=== PATIENT | female | born 1950 | race Caucasian/White ===

== ENCOUNTER 2021-01-25 17:05 | Emergency (ER) | payer OTHER ==
[2021-01-25] MEDS ORDERED: DIPHENHYDRAMINE 50 MG/ML VIAL ONE (17:48)
[2021-01-25] MEDS ORDERED: METHYLPREDNISOLONE 125 MG INJ ONE (17:48)
[2021-01-25] MEDS ORDERED: NA CHLORIDE 0.9% 50 ML ONE (17:49)
[2021-01-25 18:25] LABS: Absolute Lymphocytes (CBC) 1.8 K/uL (0.7-4.9); Basophils % 1.4 % (0-1.3); Lymphocytes % 32.6 % (15.3-44.8); MPV 9.4 fL (7.6-11.3); RBC Red Blood Cell Count 4.06 M/uL (3.86-4.86)
[2021-01-25 18:26] LABS: Protime INR 1.01
[2021-01-25 18:40] LABS: Albumin 3.8 g/dL (3.4-5.0); Bilirubin Direct 0.2 mg/dL (0-0.2); Bilirubin Total 0.9 mg/dL (0.2-1.0); Potassium 3.6 mmol/L (3.5-5.1); Protein, Total 7.7 g/dL (6.4-8.2)
--- NOTE | 2021-01-25 18:57 | RAD REPORT ---
EXAM DESCRIPTION: CTChest Abdomen Pelvis W Cont - 01/25/2021 6:45 pm CLINICAL HISTORY: pain, trauma COMPARISON: No comparisons TECHNIQUE: CT of the chest, abdomen, and pelvis was performed with IV contrast. All CT scans are performed using dose optimization technique as appropriate and may include automated exposure control or mA/KV adjustment according to patient size. FINDINGS: Thorax: Chest Wall: No abnormal mass Lungs: No acute abnormality. Pleura: No effusions or pneumothorax. Elana/Mediastinum: No lymphadenopathy. Small hiatal hernia Aorta/Pulmonary Arteries: Unremarkable Heart: Normal size. Coronary calcifications . Abdomen/Pelvis: Liver: Hepatic steatosis. Biliary: Cholecystectomy. Stomach: No significant focal abnormality. Duodenum: No significant focal abnormality. Pancreas: No significant abnormality. Spleen: No significant abnormality. Adrenal: No suspicious lesions. Kidney/ureter: No hydronephrosis. No renal calculi. Retroperitoneum: No retroperitoneal adenopathy. Vascular: No aneurysm. Bowel: No significant focal abnormality. Diverticulosis without diverticulitis. Partial colectomy. Peritoneum: No ascites or free air. Several small fat containing ventral hernias. Bladder: Grossly unremarkable. Reproductive: Hysterectomy Bones: No acute fracture. Other: Subcutaneous edema and skin thickening at the patient's pannus. No fluid collections are ident ified. No gas. IMPRESSION: Soft tissue thickening and subcutaneous edema at the patient's pannus but no fluid colle ctions or subcutaneous gas identified. No inciting etiology is seen.
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
[2021-01-25 19:47] VITALS: TEMP 97.6
[2021-01-25 19:48] VITALS: BP 164/76; O2SAT 100
--- OUTSIDE RECORDS SUMMARY | 2021-02-02 13:26 | XMS REPORT | Continuity of Care Document ---
:1950 Author Organization [facility] t Address [address] [place] [address] Care Team Providers Name Role Phone Pcp, Patient Does Not Have A Primary Care Physician [phone] AIMEE MOTA Attending Clinician Unavailable MISHA Attending Clinician Unavailable Aimee Mota MD Attending Clinician Damon QUINTERO Attending Clinician Unavailable Zechariah WHITEHEAD Attending Clinician Doctor Unassigned, Name Attending Clinician Unavailable UNKNOWN Attending Clinician Unavailable Only, Bls Test Attending Clinician Unavailable Unknown Attending Clinician Unavailable Jessi QUINTERO, T Attending Clinician Unavailable Elinor SORIANO Attending Clinician Unavailable Micky RUBIO Attending Clinician Unavailable Fadi Attending Clinician Unavailable AIMEE MOTA Admitting Clinician Unavailable Aimee Mota MD Admitting Clinician Physician, Primary or Family Admitting Clinician Unavailabl e Payers Payer Name Policy Type Policy Number Effective Date Expiration Date S ource MEDICARE PART A \\T\\ [id number] 2016 B 00:00:00 COMMERCIAL [id number] 2016 NON-CONTRACT 00:00:00 [employer] [place] [id number] 2016 00:00:00 Problems Condition Condition Condition Status Onset Resolution Last Treating Co mments Source Name Details Category Date Date Treatment Clinician Date Carotid Carotid Disease Active 2021-1 Overview: Univ ers artery artery 0-13 Formattin ity of stenosis, stenosis, 00:00: g of this [place] symptomati symptomati 00 note Me dical c, right c, right might be Bran ch different from the original. Added automatic ally from request for surgery [id number] CAD CAD Disease Active Univers (coronary (coronary 11-30 ity of artery artery 00:00: [place] disease) disease) 00 Medica l Branch Dyslipidem Dyslipidem Disease Active U nivers ia ia 11-30 ity of 00:00: [place] 00 Medical Branch Hypertensi Hypertensi Disease Active U nivers on on 11-30 ity of 00:00: [place] [facility] Stroke of Stroke of Disease Active Uni vers unknown unknown 11-21 ity of etiology etiology 00:00: [place] 00 Medical Branch R19.7 - Diagnosis Active 2020-07-20 Me moria DIARRHEA, 07-16 04:32:00 l UNSPECIFIE R19.7 - 00:01: Her josé D DIARRHEA, 00 UNSPECIFIE D Active 07/16/2020 [facility] 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 04/18/2020 OPID [facility] LOWER Diagnosis Active 2019-032020-02-28 Mem oria ABDOMINAL 04-20 14:37:00 l PAIN LOWER 00:00: Ben ABDOMINAL 00 PAIN Active 02/19/2020 [facility] [id number], Diagnosis Active 2019-09-02 Mem oria K63.89, - 14:55:00 l MESENTERIC 07410, 00:00: Herm kendra MASS K63.89, 00 MESENTERIC MASS Active 08/10/2019 [facility] ABD PAIN Diagnosis Active 2019-08-11 M emoria 07-14 18:18:00 l ABD PAIN 07:30: Bryant n 00 Active 07/15/2019 [facility] STOMACH Diagnosis Active 2019-08-11 Me moria PAIN 07-11 18:18:00 l STOMACH 00:00: Ben PAIN 00 Active 07/12/2019 [facility] G45.8 - Diagnosis Active 2019-05-05 Me moria OTH 8-06 18:59:00 l TRANSIENT G45.8 - 00:01: Herm kendra CEREBRAL OTH 00 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/2018 [facility] 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 12-11 st use of use of 00:00: Hospita anticoagul anticoagul 00 l ant ant Calcaneal Calcaneal Disease Active Met sabrinai spur spur 12-11 00:00: Hospita 00 l BOWEL Diagnosis Active 2013-10-20 Mem oria OBSTRUCTIO - 22:06:00 l N BOWEL 00:00: [place] OBSTRUCTIO 00 N Active 10/13/2013 [facility] Problem Resolve 2020-10-08 Me moria section d 00:35:02 l (procedure He rmann ) section (procedure ) Resolved Problem 10/08/2020 Medical Group,[facility] Neuro,[facility],2.1 [id number],[facility] Laparoscop Problem Resolve 2020-10-08 Memoria ic d 00:35:02 l cholecyste [place] n ctomy Laparoscop (procedure ic ) cholecyste ctomy (procedure ) Resolved Problem 10/08/2020 Medical [facility],2.1 [id number],[facility] Gastric Problem Resolve 2020-10-08 Mem oria polyp d 00:35:02 l (disorder) Gastric Her josé polyp (disorder) Resolved Problem 10/08/2020 [facility] Neuro,[facility],2.1 [id number],[facility] Stent, Problem Resolve 2020-10-08 Abraham joana device d 00:35:02 l (physical Stent, Tamela nn object) device (physical object) Resolved Problem 10/08/2020 Medical Group,[facility] her Neuro,[facility],2.1 [id number],[facility] Abdominal Problem Active 2020-10-08 Me moria mass 00:35:02 l (finding) [place] Abdominal mass (finding) Active Problem 10/08/2020 Medical Group,[id number],[facility] Carpal Problem Active 2020-10-08 Memor ia tunnel 00:35:02 l syndrome Carpal [place] n (disorder) tunnel syndrome (disorder) Active Problem 10/08/2020 Medical [facility] her Neuro,[id number],[facility] Gastroesop Problem Active 2020-10-08 M emoria hageal 00:35:02 l reflux [place] disease Gastroesop (disorder) hageal reflux disease (disorder) Active Problem 10/08/2020 Medical [facility],[id number],[facility] History of Problem Active 2020-10-08 M emoria - CVA 00:35:02 l (context-d History Her josé ependent of - CVA category) (context-d ependent category) Active Problem 10/08/2020 Medical [facility] her Neuro,[id number],[facility] Hyperchole Problem Active 2020-10-08 M emoria sterolemia 00:35:02 l (disorder) [place] n Hyperchole sterolemia (disorder) Active Problem 10/08/2020 Medical [facility] her Neuro,[facility],2.1 [id number],[facility] Simple Problem Active 2020-10-08 Memor ia obesity 00:35:02 l (disorder) Simple Herm kendra obesity (disorder) Active Problem 10/08/2020 Medical Group,[facility] her Neuro,[id number],[facility] Transient Problem Active 2020-10-08 Me moria ischemic 00:35:02 l attack Ben (disorder) Transient ischemic attack (disorder) Active Problem 10/08/2020 Medical [facility] her Neuro,[id number],[facility] ILLNESS, Diagnosis Active 2019-09-02 M emoria UNSPECIFIE 14:55:00 l D ILLNESS, [place] n UNSPECIFIE D Active [facility] INTESTINAL Diagnosis Active 2013-10-20 Memoria OBSTRUCT 22:06:00 l NOS Ben INTESTINAL OBSTRUCT NOS Active [facility] History of Past Illness Condition Condition Condition Status Onset Resolution Last Treating Co mments Source Name Details Category Date Date Treatment Clinician Date Diverticul Problem 2019-032020-02-21 2020-02-21 Memoria itis of 04-20 22:32:06 22:32:06 l large 18:00: [place] intestine Diverticul 00 without itis of perforatio large n or intestine abscess without without perforatio bleeding n or abscess without bleeding 0 02/21/2020 [facility] Epigastric Problem 2019-07-18 2019-07-18 Memoria pain 07-15 21:14:24 21:14:24 l 17:00: [place] Epigastric 00 pain 07/16/2019 07/18/2019 [facility] Unspecifie Problem 2019-07-14 2019-07-14 Memoria d 07-11 22:18:25 22:18:25 l abdominal 17:00: [place] pain Unspecifie 00 d abdominal pain 07/12/2019 07/14/2019 [facility] Ventral Problem 2019-07-14 2019-07-14 Memoria hernia 07-11 22:18:25 22:18:25 l without Ventral 17:00: [place] n obstructio hernia 00 n or without gangrene obstructio n or gangrene 0 07/14/2019 [facility] Allergies, Adverse Reactions, Alerts Allergy Allergy Status Severity Reaction(s) Onset Inactive Treating Comm ents Source Name Type Date Date Clinician No Known DA Active [facility] Allergie 11-20 Clear s 00:00: King 00 [facility] No Known DA Active U [facility] Allergie 11-20 Clear s 00:00: [place] 00 [facility] NO KNOWN Drug Active Univers ALLERGIE Class ity of S [facility] Family History Family Member Diagnosis Comments Start Date Stop Date Source Natural father Heart disease [facility] Natural father Hypertension [facility] Natural mother Hypertension [facility] Social History Social Habit Start Date Stop Date Quantity Comments Source Exposure to Not sure [facility] SARS-CoV-2 [facility] (event) [place] Tobacco use and 2020-11-21 2020-11-21 Never used Universit y of exposure 00:00:00 00:00:00 [facility] Social History 2019-09-02 2019-09-02 [facility] 02:44:10 02:44:10 Alcohol intake 2018-04-02 2018-04-02 [facility] 00:00:00 00:00:00 non-drinker of alcohol (finding) Sex [birth year] Universit y of 00:00:00 00:00:00 [facility] Smoking Status Start Date Stop Date Source Unknown if ever smoked [facility] Never smoker [facility] Medications Ordered Filled Start Stop Current Ordering Indication Dosage Frequency Signature Comments Components Source Medication Medication Date Date Medication? Clinician (SIG) Name Name clopidogreL 2020-03 Yes 75mg Take 75 mg Univers (PLAVIX) 75 -12 by mouth ity of mg tablet 13:48: daily. [address] losartan 50 2020-03 Yes 50mg Take 50 mg Univers mg tablet 1-12 by mouth ity of 13:48: daily. [address] metoprolol 2020-03 Yes 25mg Take 25 mg U nivers succinate 1-12 by mouth ity of XL 25 mg 24 13:48: [facility]. [facility] [address] pantoprazol 2020-03 Yes 40mg Take 40 mg Univers e 20 mg EC -12 by mouth ity o f tablet 13:48: daily. [address] aspirin 81 2020-03 Yes 81mg Take 81 mg U nivers mg chewable 1-12 by mouth ity of tablet 13:48: daily. [place] 54 Medical Branch ferrous 2020-03 Yes 65mg Take 65 mg Univ ers sulfate 1-12 by mouth ity of (FERROUSUL) 13:48: [place]. [place] 325 [place] (65 54 Medical mg iron) Branch tablet octreotide, 2020-03 Yes 30mg 30 mg by Un aureliano microsphere 1-12 Intramuscu it y of s 30 mg 13:48: lar route [place] injection 54 once every Medi gerhard month. Branch metoprolol 2020-03- Yes [id number] 25mg Take 1 Univers succinate 0-15 - 9100 tablet by ity of XL 25 mg 24 00:00: 04:59 [place] hr tablet 00 :00 daily for Medic al 360 days. Branch metoprolol 2020-03- Yes [id number] 25mg Take 1 Univers succinate 0-15 - 9100 tablet by ity of XL 25 mg 24 00:00: 04:59 mouth [place] hr tablet 00 :00 daily for Medic al 360 days. Branch losartan 2020-03 Yes 50mg 50 mg, Univers (COZAAR) 0-13 Oral, ity of tablet 50 16:45: DAILY, [place] mg 00 First dose Medical on Thu [place] 01/02/21 at 1145, Until Discontinu ed, Routine, PACU amLODIPine 2020-03 Yes 10mg 10 mg, Unive rs (NORVASC) 0-13 Oral, ity of tablet 10 16:45: DAILY, [place] mg 00 First dose Medical on Thu [place] 01/02/21 at 1145, Until Discontinu ed, Routine, PACU lactated 2020-03 Yes 1000mL at 75 Univer s ringers IV 0-13 mL/hr, ity of infusion 16:45: 1,000 mL, [place] 1,000 mL 00 IV Medical Infusion, Branch CONTINUOUS , Starting on Thu01/02/21 at 1145, Until Discontinu ed, Routine, PACU losartan 2020-03- No 50mg 50 mg, Univer s (COZAAR) 0-13 10-13 Oral, ity of tablet 50 16:45: 19:32 DAILY, [place] mg 00 :01 First dose Medical on Thu [place] 01/02/21 at 1145, Until Discontinu ed, Routine, PACU amLODIPine 2020-03- No 10mg 10 mg, Univ ers (NORVASC) 0-13 10-13 Oral, ity of tablet 10 16:45: 19:32 DAILY, [place] mg 00 :01 First dose Medical on Thu Branch 01/02/21 at 1145, Until Discontinu ed, Routine, PACU lactated 2020-03- No 1000mL at 75 Unive rs ringers IV 0-13 10-13 mL/hr, ity of infusion 16:45: 19:32 1,000 mL, [place] as 1,000 mL 00 :01 IV Medical Infusion, Branch CONTINUOUS , Starting on Thu01/02/21 at 1145, Until Thu01/02/21 at 1432, Routine, PACU labetaloL 2020-03- No Slow IV Univ ers (NORMODYNE) 0-13 10-13 Push, ONCE i ty of injection 16:15: 16:45 INTRA [place] 00 :17 PROCEDURE, Medical Starting Branch on Thu01/02/21 at 1115, Until Thu01/02/21 at 1145, Routine, Intra-op midazolam 2020-03- No IV Push, Uni vers (VERSED) 0- 10-13 ONCE INTRA ity of injection 16:13: 16:45 PROCEDURE, [place] 00 :17 Starting Medical on Thu Branch 01/02/21 at 1113, Until Thu01/02/21 at 1145, Routine, Intra-op esmoloL 2020-03- No Slow IV Univer s (BREVIBLOC) 0-13 10-13 Push, ONCE i ty of injection 16:13: 16:45 INTRA [place] 00 :17 PROCEDURE, Medical Starting Branch on Thu01/02/21 at 1113, Until Thu01/02/21 at 1145, Routine, Intra-op lactated 2020-03- No IV Univers ringers IV 0-13 10-13 Infusion, ity of infusion 16:11: 16:45 CONTINUOUS [place] 00 :17 PRN, Medical Starting Branch on Thu01/02/21 at 1111, Until Thu01/02/21 at 1145, Routine, Intra-op heparin 2020-03 Yes PRN, Univers 1,000 0-13 Starting ity of unit/mL 14:05: on Thu [place] 5,000 Units 00 01/02/21 Medi gerhard in NaCl at 0905, Branch 0.9% (NS) Intra-op 500 mL OR irrigation heparin 2020-03 PRN, Univers 1,000 0-13 10 Starting ity of unit/mL 14:05: 19:32 on Thu [place] 5,000 Units 00 :01 01/02/21 Medi gerhard in NaCl at 0905, Branch 0.9% (NS) Intra-op 500 mL OR irrigation clopidogreL 2020-03 Yes 75mg Take 75 mg Univers (PLAVIX) 75 0-13 by mouth ity of mg tablet 12:26: daily. [address] losartan 50 2020-03 Yes 50mg Take 50 mg Univers mg tablet 0-13 by mouth ity of 12:26: daily. [address] metoprolol 2020-03 Yes 25mg Take 25 mg U nivers succinate 0-13 by mouth ity of XL 25 mg 24 12:26: daily. [place] hr tablet [address] [place] [address] pantoprazol 2020-03 Yes 40mg Take 40 mg Univers e 20 mg EC 0-13 by mouth ity o f tablet 12:26: daily. [address] aspirin 81 2020-03 Yes 81mg Take 81 mg U nivers mg chewable 0-13 by mouth ity of tablet 12:26: daily. [address] ferrous 2020-03 Yes 65mg Take 65 mg Univ ers sulfate 0-13 by mouth ity of (FERROUSUL) 12:26: daily. [place] 325 mg (65 53 Medical mg iron) Branch tablet octreotide, 2020-03 Yes 30mg 30 mg by Un aureliano microsphere 0-13 Intramuscu it y of s 30 mg 12:26: lar route [place] injection 53 once every Medi gerhard month. Branch clopidogreL 2020-03 Yes 75mg Take 75 mg Univers (PLAVIX) 75 0-13 by mouth ity of mg tablet 12:26: daily. [address] losartan 50 2020-03 Yes 50mg Take 50 mg Univers mg tablet 0-13 by mouth ity of 12:26: daily. [address] metoprolol 2020-03 Yes 25mg Take 25 mg U nivers succinate 0-13 by mouth ity of XL 25 mg 24 12:26: daily. [place] hr tablet [address] [place] [address] Branch pantoprazol 2020-03 Yes 40mg Take 40 mg Univers e 20 mg EC 0-13 by mouth ity o f tablet 12:26: daily. [address] aspirin 81 2020-03 Yes 81mg Take 81 mg U nivers mg chewable 0-13 by mouth ity of tablet 12:26: daily. [address] ferrous 2020-03 Yes 65mg Take 65 mg Univ ers sulfate 0-13 by mouth ity of (FERROUSUL) 12:26: daily. [place] 325 mg (65 53 Medical mg iron) Branch tablet octreotide, 2020-03 Yes 30mg 30 mg by Un aureliano microsphere 0-13 Intramuscu it y of s 30 mg 12:26: lar route [place] injection 53 once every Medi gerhard month. Branch clopidogreL 2020-03 Yes 75mg Take 75 mg Univers (PLAVIX) 75 0-13 by mouth ity of mg tablet 12:26: daily. [address] losartan 50 2020-03 Yes 50mg Take 50 mg Univers mg tablet 0-13 by mouth ity of 12:26: daily. [address] metoprolol 2020-03 Yes 25mg Take 25 mg U nivers succinate 0-13 by mouth ity of XL 25 mg 24 12:26: daily. [place] hr tablet [address] [place] [address] Branch pantoprazol 2020-03 Yes 40mg Take 40 mg Univers e 20 mg EC 0-13 by mouth ity o f tablet 12:26: daily. [address] aspirin 81 2020-03 Yes 81mg Take 81 mg U nivers mg chewable 0-13 by mouth ity of tablet 12:26: daily. [address] ferrous 2020-03 Yes 65mg Take 65 mg Univ ers sulfate 0-13 by mouth ity of (FERROUSUL) 12:26: daily. [place] 325 mg (65 53 Medical mg iron) Branch tablet octreotide, 2020-03 Yes 30mg 30 mg by Un aureliano microsphere 0-13 Intramuscu it y of s 30 mg 12:26: lar route [place] injection 53 once every Medi gerhard month. Branch clopidogreL 2020-03 Yes 75mg Take 75 mg Univers (PLAVIX) 75 0-13 by mouth ity of mg tablet 12:26: daily. [address] losartan 50 2021-1 Yes 50mg Take 50 mg Univers mg tablet 0-13 by mouth ity of 12:26: daily. [address] metoprolol 2020-03 Yes 25mg Take 25 mg U nivers succinate 0-13 by mouth ity of XL 25 mg 24 12:26: daily. [place] hr tablet [address] [place] [address] Branch pantoprazol 2020-03 Yes 40mg Take 40 mg Univers e 20 mg EC 0-13 by mouth ity o f tablet 12:26: daily. [address] aspirin 81 2020-03 Yes 81mg Take 81 mg U nivers mg chewable 0-13 by mouth ity of tablet 12:26: daily. [address] ferrous 2020-03 Yes 65mg Take 65 mg Univ ers sulfate 0-13 by mouth ity of (FERROUSUL) 12:26: daily. [place] 325 mg (65 53 Medical mg iron) Branch tablet octreotide, 2020-03 Yes 30mg 30 mg by Un aureliano microsphere 0-13 Intramuscu it y of s 30 mg 12:26: lar route [place] injection 53 once every [facility] month. Branch clopidogreL 2020-03 Yes 75mg Take 75 mg Univers (PLAVIX) 75 0-13 by mouth ity of mg tablet 12:26: daily. [address] losartan 50 2020-03 Yes 50mg Take 50 mg Univers mg tablet 0-13 by mouth ity of 12:26: daily. [address] metoprolol 2020-03 Yes 25mg Take 25 mg U nivers succinate 0-13 by mouth ity of XL 25 mg 24 12:26: daily. [place] hr tablet [address] [place] [address] pantoprazol 2020-03 Yes 40mg Take 40 mg Univers e 20 mg EC 0-13 by mouth ity o f tablet 12:26: daily. [address] aspirin 81 2020-03 Yes 81mg Take 81 mg U nivers mg chewable 0-13 by mouth ity of tablet 12:26: daily. [address] ferrous 2020-03 Yes 65mg Take 65 mg Univ ers sulfate 0-13 by mouth ity of (FERROUSUL) 12:26: daily. [place] 325 mg (65 53 Medical mg iron) Branch tablet octreotide, 2020-03 Yes 30mg 30 mg by Un aureliano microsphere 0-13 Intramuscu it y of s 30 mg 12:26: lar route [place] injection 53 once every Medi [facility] month. Branch clopidogreL 2020-03 Yes 75mg Take 75 mg Univers (PLAVIX) 75 0-13 by mouth ity of mg tablet 12:26: daily. [place] [address] Medical Branch losartan 50 2020-03 Yes 50mg Take 50 mg Univers mg tablet 0-13 by mouth ity of 12:26: daily. [place] [address] Medical Branch metoprolol 2020-03 Yes 25mg Take 25 mg U nivers succinate 0-13 by mouth ity of XL 25 mg 24 12:26: daily. [place] hr tablet 53 Medical Branch pantoprazol 2020-03 Yes 40mg Take 40 mg Univers e 20 mg EC 0-13 by mouth ity o f tablet 12:26: daily. [address] Branch aspirin 81 2020-03 Yes 81mg Take 81 mg U nivers mg chewable 0-13 by mouth ity of tablet 12:26: daily. [place] [address] Medical Branch ferrous 2020-03 Yes 65mg Take 65 mg Univ ers sulfate 0-13 by mouth ity of (FERROUSUL) 12:26: daily. [place] 325 mg (65 53 Medical mg iron) Branch tablet octreotide, 2020-03 Yes 30mg 30 mg by Un aureliano microsphere 0-13 Intramuscu it y of s 30 mg 12:26: lar route [place] injection 53 once every [facility] month. Branch No known 2020-03 No Univers medications 0-13 ity of 09:26: [place] [address] Medical Branch amLODIPine 2020-03- Yes [id number] 10mg Take 1 Univers 10 mg 0-13 - 9100 tablet by ity of tablet 00:00: 04:59 mouth [place] 00 :00 daily for Medical 210 days. Branch amLODIPine 2020-03- Yes [id number] 10mg Take 1 Univers 10 mg 0-13 05-12 9100 tablet by ity of tablet 00:00: 04:59 mouth [place] 00 :00 daily for Medical 210 days. Branch amLODIPine 2020-03- Yes [id number] 10mg Take 1 Univers 10 mg 0-13 05-12 9100 tablet by ity of tablet 00:00: 04:59 mouth [place] 00 :00 daily for Medical 210 days. Branch losartan 50 2020-03 Yes 50mg Take 50 mg Univers mg tablet 0-06 by mouth ity of 17:41: daily. [address] metoprolol 2020-03 Yes 25mg Take 25 mg U nivers succinate 0-06 by mouth ity of XL 25 mg 24 17:41: daily. [place] hr tablet [address] [place] [address] Branch pantoprazol 2020-03 Yes 40mg Take 40 mg Univers e 20 mg EC 0-06 by mouth ity o f tablet 17:41: daily. [address] aspirin 81 2020-03 Yes 81mg Take 81 mg U nivers mg chewable 0-06 by mouth ity of tablet 17:41: daily. [address] ferrous 2020-03 Yes 65mg Take 65 mg Univ ers sulfate 0-06 by mouth ity of (FERROUSUL) 17:41: daily. [place] 325 mg (65 56 Medical mg iron) Branch tablet losartan 50 2020-03 Yes 50mg Take 50 mg Univers mg tablet 0-06 by mouth ity of 17:41: daily. [address] metoprolol 2020-03 Yes 25mg Take 25 mg U nivers succinate 0-06 by mouth ity of XL 25 mg 24 17:41: daily. [place] hr tablet [address] [place] [address] Branch pantoprazol 2020-03 Yes 40mg Take 40 mg Univers e 20 mg EC 0-06 by mouth ity o f tablet 17:41: daily. [address] aspirin 81 2020-03 Yes 81mg Take 81 mg U nivers mg chewable 0-06 by mouth ity of tablet 17:41: daily. [address] ferrous 2020-03 Yes 65mg Take 65 mg Univ ers sulfate 0-06 by mouth ity of (FERROUSUL) 17:41: daily. [place] 325 mg (65 56 Medical mg iron) Branch tablet losartan 50 2020-03 Yes 50mg Take 50 mg Univers mg tablet 0-06 by mouth ity of 17:41: daily. [address] metoprolol 2020-03 Yes 25mg Take 25 mg U nivers succinate 0-06 by mouth ity of XL 25 mg 24 17:41: daily. [place] hr tablet [address] [place] [address] Branch pantoprazol 2020-03 Yes 40mg Take 40 mg Univers e 20 mg EC 0-06 by mouth ity o f tablet 17:41: daily. [address] aspirin 81 2020-03 Yes 81mg Take 81 mg U nivers mg chewable 0-06 by mouth ity of tablet 17:41: daily. [address] ferrous 2020-03 Yes 65mg Take 65 mg Univ ers sulfate 0-06 by mouth ity of (FERROUSUL) 17:41: daily. [place] 325 mg (65 56 Medical mg iron) Branch tablet clopidogreL 2020-03 Yes 75mg Take 75 mg Univers (PLAVIX) 75 0-06 by mouth ity of mg tablet 17:28: daily. [address] clopidogreL 2020-03 Yes 75mg Take 75 mg Univers (PLAVIX) 75 0-06 by mouth ity of mg tablet 17:28: daily. [address] clopidogreL 2020-03 Yes 75mg Take 75 mg Univers (PLAVIX) 75 0-06 by mouth ity of mg tablet 17:28: daily. [address] clopidogreL Yes 75mg Take 75 mg Univers (PLAVIX) 75 9-10 by mouth ity of mg tablet 12:27: daily. [address] losartan 50 Yes 50mg Take 50 mg Univers mg tablet 9-10 by mouth ity of 12:27: daily. [address] metoprolol Yes 25mg Take 25 mg U nivers succinate 9-10 by mouth ity of XL 25 mg 24 12:27: daily. [place] hr tablet [address] [place] [address] pantoprazol Yes 40mg Take 40 mg Univers e 20 mg EC 9-10 by mouth ity o f tablet 12:27: daily. [address] aspirin 81 Yes 81mg Take 81 mg U nivers mg chewable 9-10 by mouth ity of tablet 12:27: daily. [address] ferrous Yes 65mg Take 65 mg Univ ers sulfate 9-10 by mouth ity of (FERROUSUL) 12:27: daily. [place] 325 mg (65 40 Medical mg iron) Branch tablet octreotide, Yes 30mg 30 mg by Un aureliano microsphere 9-10 Intramuscu it y of s 30 mg 12:27: lar route [place] injection 40 once every Medi gerhard month. Branch octreotide, Yes 30mg 30 mg by Un aureliano microsphere 9-10 Intramuscu it y of s 30 mg 12:27: lar route [place] injection 40 once every Medi gerhard month. Branch octreotide, 2020-0 Yes 30mg 30 mg by Un aureliano microsphere 9-10 Intramuscu it y of s 30 mg 12:27: lar route [place] injection 40 once every [facility] [facility] octreotide, 2020-0 Yes 30mg 30 mg by [facility] microsphere 9-10 Intramuscu it y of s 30 mg 12:27: lar route [place] injection 40 once every [facility] month. Branch rosuvastati 2020-0 Yes [id number] 20mg Take 1 [facility] n 20 mg 9-08 9100 tablet by ity of tablet 00:00: mouth at [place] 00 bedtime. Medical Branch rosuvastati 2020-0 Yes [id number] 20mg Take 1 [facility] n 20 mg 9- 9100 tablet by ity of tablet 00:00: mouth at [place] 00 bedtime. Medical Branch rosuvastati 2020-0 Yes [id number] 20mg Take 1 [facility] n 20 mg 9- 9100 tablet by ity of tablet 00:00: mouth at [place] 00 bedtime. Medical Branch rosuvastati 2020-0 Yes [id number] 20mg Take 1 [facility] n 20 mg 9- 9100 tablet by ity of tablet 00:00: mouth at [place] 00 bedtime. Medical Branch rosuvastati 2020-0 Yes [id number] 20mg Take 1 [facility] n 20 mg 9- 9100 tablet by ity of tablet 00:00: mouth at [place] 00 bedtime. Medical Branch rosuvastati 2020-0 Yes [id number] 20mg Take 1 [facility] n 20 mg 9- 9100 tablet by ity of tablet 00:00: mouth at [place] 00 bedtime. Medical Branch rosuvastati 2020-0 Yes [id number] 20mg Take 1 [facility] n 20 mg 9- 9100 tablet by ity of tablet 00:00: mouth at [place] 00 bedtime. Medical Branch rosuvastati 2020-0 Yes [id number] 20mg Take 1 [facility] n 20 mg 9- 9100 tablet by ity of tablet 00:00: mouth at [place] 00 bedtime. Medical Branch rosuvastati 2020-0 Yes [id number] 20mg Take 1 [facility] 20 mg 9- 9100 tablet by ity of tablet 00:00: mouth at [place] 00 bedtime. Medical Branch rosuvastati 2020-0 Yes [id number] 20mg Take 1 [facility] 20 mg 9-08 9100 tablet by ity of tablet 00:00: mouth at [place] 00 bedtime. Medical Branch rosuvastati 2020-0 Yes [id number] 20mg Take 1 [facility] 20 mg 9-08 9100 tablet by ity of tablet 00:00: mouth at [place] 00 bedtime. Medical Branch amLODIPine 2020-0 Yes [id number] 10mg Take 1 [facility] nivers 10 mg 9-04 tablet by ity of tablet 00:00: mouth [place] 00 daily. Medical Branch amLODIPine 2020-0 Yes [id number] 10mg Take 1 U nivers 10 mg 9-04 tablet by ity of tablet 00:00: mouth [place] 00 daily. Medical Branch amLODIPine 0 Yes [id number] 10mg Take 1 U nivers 10 mg 9-04 tablet by ity of tablet 00:00: mouth [place] 00 daily. Medical Branch amLODIPine 2020-0 Yes [id number] 10mg Take 1 U nivers 10 mg 9-04 tablet by ity of tablet 00:00: mouth [place] 00 daily. Medical Branch amLODIPine 2020-0 Yes [id number] 10mg Take 1 U nivers 10 mg 9-04 tablet by ity of tablet 00:00: mouth [place] 00 daily. Medical Branch amLODIPine 2020-0 Yes [id number] 10mg Take 1 U nivers 10 mg 9-04 tablet by ity of tablet 00:00: mouth [place] 00 daily. Medical Branch amLODIPine 2020-0 Yes [id number] 10mg Take 1 U nivers 10 mg 9-04 tablet by ity of tablet 00:00: mouth [place] 00 daily. Medical Branch amLODIPine 2020-0 Yes [id number] 10mg Take 1 U nivers 10 mg 9-04 tablet by ity of tablet 00:00: mouth [place] 00 daily. Medical Branch amLODIPine 2020-0 Yes [id number] 10mg Take 1 U nivers 10 mg 9-04 tablet by ity of tablet 00:00: mouth [place] 00 daily. Medical Branch amLODIPine 2020-0 Yes [id number] 10mg Take 1 U nivers 10 mg 9-04 tablet by ity of tablet 00:00: mouth [place] 00 daily. Medical Branch amLODIPine 2020-0 Yes [id number] 10mg Take 1 U nivers 10 mg 9-04 tablet by ity of tablet 00:00: mouth [place] 00 daily. Medical Branch diphenoxyla 2020-0 Yes TAKE 1 [facility] ers te-atropine 7-23 TABLET BY ity of 2.5-0.025 00:00: MOUTH FOUR [place] mg tablet 00 TIMES A Medical DAY WHILE Branch AWAKE NEEDED DIARRHEA diphenoxyla 2020-0 Yes TAKE 1 Univ ers te-atropine 7-23 TABLET BY ity of 2.5-0.025 00:00: MOUTH FOUR [place] mg tablet 00 TIMES A Medical DAY WHILE Branch AWAKE NEEDED DIARRHEA diphenoxyla 2020-0 Yes TAKE 1 Univ ers te-atropine 7-23 TABLET BY ity of 2.5-0.025 00:00: MOUTH FOUR [place] mg tablet 00 TIMES A Medical DAY WHILE Branch AWAKE NEEDED DIARRHEA diphenoxyla 2020-0 Yes TAKE 1 [facility] ers te-atropine 7-23 TABLET BY ity of 2.5-0.025 00:00: MOUTH FOUR [place] mg tablet 00 TIMES A Medical DAY WHILE Branch AWAKE NEEDED DIARRHEA diphenoxyla 2020-0 Yes TAKE 1 Univ ers te-atropine 7-23 TABLET BY ity of 2.5-0.025 00:00: MOUTH FOUR [place] mg tablet 00 TIMES A Medical DAY WHILE Branch AWAKE NEEDED DIARRHEA diphenoxyla 2020-0 Yes TAKE 1 Univ ers te-atropine 7-23 TABLET BY ity of 2.5-0.025 00:00: MOUTH FOUR [place] mg tablet 00 TIMES A Medical DAY WHILE Branch AWAKE NEEDED DIARRHEA diphenoxyla 2020-0 Yes TAKE 1 Univ ers te-atropine 7-23 TABLET BY ity of 2.5-0.025 00:00: MOUTH FOUR [place] mg tablet 00 TIMES A Medical DAY WHILE Branch AWAKE NEEDED DIARRHEA diphenoxyla 2020-0 Yes TAKE 1 Univ ers te-atropine 7-23 TABLET BY ity of 2.5-0.025 00:00: MOUTH FOUR [place] mg tablet 00 TIMES A Medical DAY WHILE Branch AWAKE NEEDED DIARRHEA diphenoxyla 2020-0 Yes TAKE 1 Univ ers te-atropine 7-23 TABLET BY ity of 2.5-0.025 00:00: MOUTH FOUR [place] mg tablet 00 TIMES A Medical DAY WHILE Branch AWAKE NEEDED DIARRHEA diphenoxyla Yes TAKE 1 Univ ers te-atropine 7-23 TABLET BY ity of 2.5-0.025 00:00: MOUTH FOUR [place] mg tablet 00 TIMES A Medical DAY WHILE Branch AWAKE NEEDED DIARRHEA losartan 50 0 Yes 50 mg = 1 M em[place] mg oral 7-16 tab, PO, l tablet 19:32: Daily, # [place] 00 90 tab, 0 Refill(s), Pharmacy: [facility] #[id number], 152.4, cm, 10/05/20 13:42:00 CDT, Height, 79.148, kg, 10/05/20 13:42:00 CDT, Weight losartan 50 0 Yes 50 mg = 1 M em[place] mg oral 7-16 tab, PO, l tablet 19:32: Daily, # [place] 00 90 tab, 0 Refill(s), Pharmacy: [facility] #[id number], 152.4, cm, 10/05/20 13:42:00 CDT, Height, 79.148, kg, 10/05/20 13:42:00 CDT, Weight losartan 50 0 Yes 50 mg = 1 M [place] mg oral 7-16 tab, PO, l tablet 19:32: Daily, # [place] 00 90 tab, 0 Refill(s), Pharmacy: [facility] #[id number], 152.4, cm, 10/05/20 13:42:00 CDT, Height, 79.148, kg, 10/05/20 13:42:00 CDT, Weight losartan 50 2020-0 Yes 50 mg = 1 M [place] mg oral 7-16 tab, PO, l tablet 19:32: Daily, # [place] 00 90 tab, 0 Refill(s), Pharmacy: [id number], 152.4, cm, 10/05/20 13:42:00 CDT, Height, 79.148, kg, 10/05/20 13:42:00 CDT, Weight losartan 50 0 Yes 50 mg = 1 M [place] mg oral 7-16 tab, PO, l tablet 19:32: Daily, # [place] 00 90 tab, 0 Refill(s), Pharmacy: [facility] #[id number], 152.4, cm, 10/05/20 13:42:00 CDT, Height, 79.148, kg, 10/05/20 13:42:00 CDT, Weight losartan 50 2020-0 Yes 50 mg = 1 M [place] mg oral 7-16 tab, PO, l tablet 19:32: Daily, # [place] 00 90 tab, 0 Refill(s), Pharmacy: [facility] #[id number], 152.4, cm, 10/05/20 13:42:00 CDT, Height, 79.148, kg, 10/05/20 13:42:00 CDT, Weight losartan 50 2020-0 Yes 50 mg = 1 M [place] mg oral 7-16 tab, PO, l tablet 19:32: Daily, # [place] 00 90 tab, 0 Refill(s), Pharmacy: [facility] #[id number], 152.4, cm, 10/05/20 13:42:00 CDT, Height, 79.148, kg, 10/05/20 13:42:00 CDT, Weight losartan 50 2020-0 Yes 50 mg = 1 M em[place] mg oral 7-16 tab, PO, l tablet 19:32: Daily, # [place] 00 90 tab, 0 Refill(s), Pharmacy: [facility] #[id number], 152.4, cm, 10/05/20 13:42:00 CDT, Height, 79.148, kg, 10/05/20 13:42:00 CDT, Weight losartan 50 2020-0 Yes 50 mg = 1 M [place] mg oral 7-16 tab, PO, l tablet 19:32: Daily, # [place] 00 90 tab, 0 Refill(s), Pharmacy: [facility] #[id number], 152.4, cm, 10/05/20 13:42:00 CDT, Height, 79.148, kg, 10/05/20 13:42:00 CDT, Weight losartan 50 2020-0 Yes 50 mg = 1 M [place] mg oral 7-16 tab, PO, l tablet 19:32: Daily, # [place] 00 90 tab, 0 Refill(s), Pharmacy: [facility] #[id number], 152.4, cm, 10/05/20 13:42:00 CDT, Height, 79.148, kg, 10/05/20 13:42:00 CDT, Weight Sandostatin Yes SUB-Q, [place] joana 7-16 TID, 0 l 18:45: Refill(s) Sandostatin Yes SUB-Q, [place] joana 7-16 TID, 0 l 18:45: Refill(s) Sandostatin Yes SUB-Q, [place] joana 7-16 TID, 0 l 18:45: Refill(s) Sandostatin Yes SUB-Q, [place] joana 7-16 TID, 0 l 18:45: Refill(s) Sandostatin Yes SUB-Q, [place] joana 7-16 TID, 0 l 18:45: Refill(s) Sandostatin Yes SUB-Q, [place] joana 7-16 TID, 0 l 18:45: Refill(s) Sandostatin Yes SUB-Q, [place] joana 7-16 TID, 0 l 18:45: Refill(s) Sandostatin Yes SUB-Q, [place] joana 7-16 TID, 0 l 18:45: Refill(s) Sandostatin Yes SUB-Q, [place] joana 7-16 TID, 0 l 18:45: Refill(s) Sandostatin Yes SUB-Q, [place] joana 7-16 TID, 0 l 18:45: Refill(s) Metronidazo 2019-03 Yes 500 mg = 1 Memoria le 500 MG 1-29 tab, PO, l Oral Tablet 20:08: Q8H, X 10 [facility] [place] [Flagyl] 00 day, # 30 tab, 0 Refill(s) Metronidazo 2019-03 Yes 500 mg = 1 Mem[facility] le 500 MG 1-29 tab, PO, l Oral Tablet 20:08: Q8H, X 10 [place] [Flagyl] 00 day, # 30 tab, 0 Refill(s) Metronidazo 2019-03 Yes 500 mg = 1 Mem[facility] le 500 MG 1-29 tab, PO, l Oral Tablet 20:08: Q8H, X 10 [place] [Flagyl] 00 day, # 30 tab, 0 Refill(s) Metronidazo 2019-03 Yes 500 mg = 1 Memoria le 500 MG 1-29 tab, PO, l Oral Tablet 20:08: Q8H, X 10 [facility] [place] [Flagyl] 00 day, # 30 tab, 0 Refill(s) Metronidazo 2019-03 Yes 500 mg = 1 Memoria le 500 MG 1-29 tab, PO, l Oral Tablet 20:08: Q8H, X 10 [facility] [place] [Flagyl] 00 day, # 30 tab, 0 Refill(s) Metronidazo 2019-03 Yes 500 mg = 1 Memoria le 500 MG 1-29 tab, PO, l Oral Tablet 20:08: Q8H, X 10 [place] [Flagyl] 00 day, # 30 tab, 0 Refill(s) Metronidazo 2019-03 Yes 500 mg = 1 Memoria le 500 MG 1-29 tab, PO, l Oral Tablet 20:08: Q8H, X 10 [place] [Flagyl] 00 day, # 30 tab, 0 Refill(s) Metronidazo 2019-03 Yes 500 mg = 1 Memoria le 500 MG 1-29 tab, PO, l Oral Tablet 20:08: Q8H, X 10 [place] [Flagyl] 00 day, # 30 tab, 0 Refill(s) Metronidazo 2019-03 Yes 500 mg = 1 Memoria le 500 MG 1-29 tab, PO, l Oral Tablet 20:08: Q8H, X 10 [place] [Flagyl] 00 day, # 30 tab, 0 Refill(s) Metronidazo 2019-03 Yes 500 mg = 1 Memoria le 500 MG 1-29 tab, PO, l Oral Tablet 20:08: Q8H, X 10 [place] [Flagyl] 00 day, # 30 tab, 0 Refill(s) Ciprofloxac 2019-03 Yes 500 mg = 1 Memoria in 500 MG 1-29 tab, PO, l Oral Tablet 20:07: Q12H, X 10 [place] [Cipro] 00 day, # 20 tab, 0 Refill(s) Ciprofloxac 2019-03 Yes 500 mg = 1 Memoria in 500 MG 1-29 tab, PO, l Oral Tablet 20:07: Q12H, X 10 [place] [Cipro] 00 day, # 20 tab, 0 Refill(s) Ciprofloxac 2019- Yes 500 mg = 1 Memoria in 500 MG 1-29 tab, PO, l Oral Tablet 20:07: Q12H, X 10 [place] [Cipro] day, # 20 tab, 0 Refill(s) Ciprofloxac 2019- Yes 500 mg = 1 Memoria in 500 MG 1-29 tab, PO, l Oral Tablet 20:07: Q12H, X 10 [place] [Cipro] day, # 20 tab, 0 Refill(s) Ciprofloxac 2019- Yes 500 mg = 1 Memoria in 500 MG 1-29 tab, PO, l Oral Tablet 20:07: Q12H, X 10 [place] [Cipro] day, # 20 tab, 0 Refill(s) Ciprofloxac 2019- Yes 500 mg = 1 Memoria in 500 MG 1-29 tab, PO, l Oral Tablet 20:07: Q12H, X 10 [place] [Cipro] day, # 20 tab, 0 Refill(s) Ciprofloxac 2019-03 Yes 500 mg = 1 Memoria in 500 MG 1-29 tab, PO, l Oral Tablet 20:07: Q12H, X 10 [place] [Cipro] day, # 20 tab, 0 Refill(s) Ciprofloxac 2019- Yes 500 mg = 1 Memoria in 500 MG 1-29 tab, PO, l Oral Tablet 20:07: Q12H, X 10 [place] [Cipro] day, # 20 tab, 0 Refill(s) Ciprofloxac 2019-03 Yes 500 mg = 1 Memoria in 500 MG 1-29 tab, PO, l Oral Tablet 20:07: Q12H, X 10 [place] [Cipro] day, # 20 tab, 0 Refill(s) Ciprofloxac 2019- Yes 500 mg = 1 Memoria in 500 MG 1-29 tab, PO, l Oral Tablet 20:07: Q12H, X 10 [place] [Cipro] day, # 20 tab, 0 Refill(s) Ciprofloxac 2019-1 No 500 mg, Mem oria in 04-20 Route: PO, l 19:06: ONCE, [place] Dosing Weight 76.818, kg, Priority: STAT, Start date: 02/19/20 13:06:00 CAREER TECHNICAL COUNSELOR, Stop date: 02/19/20 13:06:00 CAREER TECHNICAL COUNSELOR, ABX Indication : Intra-abdo john Infection Flagyl 2019- No 500 mg, Memoria 04-20 Route: PO, l 19:06: ONCE, [place] Dosing Weight 76.818, kg, Priority: STAT, Start date: 02/19/20 13:06:00 CAREER TECHNICAL COUNSELOR, Stop date: 02/19/20 13:06:00 CAREER TECHNICAL COUNSELOR, ABX Indication : Intra-abdo john Infection Ciprofloxac 2019- No 500 mg, Mem oria in 04-20 Route: PO, l 19:06: ONCE, [place] 00 Dosing Weight 76.818, kg, Priority: STAT, Start date: 02/19/20 13:06:00 CAREER TECHNICAL COUNSELOR, Stop date: 02/19/20 13:06:00 CAREER TECHNICAL COUNSELOR, ABX Indication : Intra-abdo john Infection Flagyl 2019- No 500 mg, [facility] 04-20 Route: PO, l 19:06: ONCE, [place] 00 Dosing Weight 76.818, kg, Priority: STAT, Start date: 02/19/20 13:06:00 CAREER TECHNICAL COUNSELOR, Stop date: 02/19/20 13:06:00 CAREER TECHNICAL COUNSELOR, ABX Indication : Intra-abdo john Infection Ciprofloxac 2019- No 500 mg, Mem oria in 04-20 Route: PO, l 19:06: ONCE, [place] Dosing Weight 76.818, kg, Priority: STAT, Start date: 02/19/20 13:06:00 CAREER TECHNICAL COUNSELOR, Stop date: 02/19/20 13:06:00 CAREER TECHNICAL COUNSELOR, ABX Indication : Intra-abdo john Infection Flagyl 2019-1 No 500 mg, [facility] 04-20 Route: PO, l 19:06: ONCE, [place] 00 Dosing Weight 76.818, kg, Priority: STAT, Start date: 02/19/20 13:06:00 CAREER TECHNICAL COUNSELOR, Stop date: 02/19/20 13:06:00 CAREER TECHNICAL COUNSELOR, ABX Indication : Intra-abdo john Infection Ciprofloxac 2019-1 No 500 mg, Mem oria in 04-20 Route: PO, l 19:06: ONCE, [place] 00 Dosing Weight 76.818, kg, Priority: STAT, Start date: 02/19/20 13:06:00 CAREER TECHNICAL COUNSELOR, Stop date: 02/19/20 13:06:00 CAREER TECHNICAL COUNSELOR, ABX Indication : Intra-abdo john Infection Flagyl 2019- No 500 mg, Memoria 04-20 Route: PO, l 19:06: ONCE, [place] Dosing Weight 76.818, kg, Priority: STAT, Start date: 02/19/20 13:06:00 CAREER TECHNICAL COUNSELOR, Stop date: 02/19/20 13:06:00 CAREER TECHNICAL COUNSELOR, ABX Indication : Intra-abdo john Infection Ciprofloxac 2020-1 No 500 mg, Mem oria in 04-20 Route: PO, l 19:06: ONCE, [place] 00 Dosing Weight 76.818, kg, Priority: STAT, Start date: 02/19/20 13:06:00 CAREER TECHNICAL COUNSELOR, Stop date: 02/19/20 13:06:00 CAREER TECHNICAL COUNSELOR, ABX Indication : Intra-abdo john Infection Flagyl 2019- No 500 mg, Mem[facility] 04-20 Route: PO, l 19:06: ONCE, [place] 00 Dosing Weight 76.818, kg, Priority: STAT, Start date: 02/19/20 13:06:00 CAREER TECHNICAL COUNSELOR, Stop date: 02/19/20 13:06:00 CAREER TECHNICAL COUNSELOR, ABX Indication : Intra-abdo john Infection Ciprofloxac 2019-1 No 500 mg, Mem oria in 04-20 Route: PO, l 19:06: ONCE, [place] 00 Dosing Weight 76.818, kg, Priority: STAT, Start date: 02/19/20 13:06:00 CAREER TECHNICAL COUNSELOR, Stop date: 02/19/20 13:06:00 CAREER TECHNICAL COUNSELOR, ABX Indication : Intra-abdo john Infection Flagyl 2019-1 No 500 mg, Memoria 04-20 Route: PO, l 19:06: ONCE, [place] Dosing Weight 76.818, kg, Priority: STAT, Start date: 02/19/20 13:06:00 CAREER TECHNICAL COUNSELOR, Stop date: 02/19/20 13:06:00 CAREER TECHNICAL COUNSELOR, ABX Indication : Intra-abdo john Infection Ciprofloxac 2019-1 No 500 mg, Mem oria in 04-20 Route: PO, l 19:06: ONCE, [place] Dosing Weight 76.818, kg, Priority: STAT, Start date: 02/19/20 13:06:00 CAREER TECHNICAL COUNSELOR, Stop date: 02/19/20 13:06:00 CAREER TECHNICAL COUNSELOR, ABX Indication : Intra-abdo john Infection Flagyl 2019- No 500 mg, Mem[facility] 04-20 Route: PO, l 19:06: ONCE, [place] Dosing Weight 76.818, kg, Priority: STAT, Start date: 02/19/20 13:06:00 CAREER TECHNICAL COUNSELOR, Stop date: 02/19/20 13:06:00 CAREER TECHNICAL COUNSELOR, ABX Indication : Intra-abdo john Infection Ciprofloxac 2020-1 No 500 mg, Mem oria in 04-20 Route: PO, l 19:06: ONCE, [place] 00 Dosing Weight 76.818, kg, Priority: STAT, Start date: 02/19/20 13:06:00 CAREER TECHNICAL COUNSELOR, Stop date: 02/19/20 13:06:00 CAREER TECHNICAL COUNSELOR, ABX Indication : Intra-abdo john Infection Flagyl 2019- No 500 mg, Memoria 04-20 Route: PO, l 19:06: ONCE, [place] 00 Dosing Weight 76.818, kg, Priority: STAT, Start date: 02/19/20 13:06:00 CAREER TECHNICAL COUNSELOR, Stop date: 02/19/20 13:06:00 CAREER TECHNICAL COUNSELOR, ABX Indication : Intra-abdo john Infection Ciprofloxac 2019-1 No 500 mg, Mem oria in 04-20 Route: PO, l 19:06: ONCE, [place] Dosing Weight 76.818, kg, Priority: STAT, Start date: 02/19/20 13:06:00 CAREER TECHNICAL COUNSELOR, Stop date: 02/19/20 13:06:00 CAREER TECHNICAL COUNSELOR, ABX Indication : Intra-abdo john Infection Flagyl 2019-1 No 500 mg, Memoria 04-20 Route: PO, l 19:06: ONCE, [place] 00 Dosing Weight 76.818, kg, Priority: STAT, Start date: 02/19/20 13:06:00 CAREER TECHNICAL COUNSELOR, Stop date: 02/19/20 13:06:00 CAREER TECHNICAL COUNSELOR, ABX Indication : Intra-abdo john Infection Ciprofloxac 2019- No 500 mg, Mem oria in 04-20 Route: PO, l 19:06: ONCE, [place] Dosing Weight 76.818, kg, Priority: STAT, Start date: 02/19/20 13:06:00 CAREER TECHNICAL COUNSELOR, Stop date: 02/19/20 13:06:00 CAREER TECHNICAL COUNSELOR, ABX Indication : Intra-abdo john Infection Flagyl 2019- No 500 mg, [facility] 04-20 Route: PO, l 19:06: ONCE, [place] Dosing Weight 76.818, kg, Priority: STAT, Start date: 02/19/20 13:06:00 CAREER TECHNICAL COUNSELOR, Stop date: 02/19/20 13:06:00 CAREER TECHNICAL COUNSELOR, ABX Indication : Intra-abdo john Infection Morphine 2019-1 No 4 mg, Memoria 04-20 Route: l 16:44: IVP, ONCE, [place] 00 Dosing Weight 76.818, kg, Priority: STAT, Start date: 02/19/20 10:44:00 CAREER TECHNICAL COUNSELOR, Stop date: 02/19/20 10:44:00 CAREER TECHNICAL COUNSELOR Morphine 2019-1 No 4 mg, Mem[facility] 04-20 Route: l 16:44: IVP, ONCE, [place] 00 Dosing Weight 76.818, kg, Priority: STAT, Start date: 02/19/20 10:44:00 CAREER TECHNICAL COUNSELOR, Stop date: 02/19/20 10:44:00 CAREER TECHNICAL COUNSELOR Morphine 2019-1 No 4 mg, [facility] 04-20 Route: l 16:44: IVP, ONCE, [place] 00 Dosing Weight 76.818, kg, Priority: STAT, Start date: 02/19/20 10:44:00 CAREER TECHNICAL COUNSELOR, Stop date: 02/19/20 10:44:00 CAREER TECHNICAL COUNSELOR Morphine 2019-1 No 4 mg, Mem[facility] 04-20 Route: l 16:44: IVP, ONCE, [place] 00 Dosing Weight 76.818, kg, Priority: STAT, Start date: 02/19/20 10:44:00 CAREER TECHNICAL COUNSELOR, Stop date: 02/19/20 10:44:00 CAREER TECHNICAL COUNSELOR Morphine 2019-1 No 4 mg, [facility] 04-20 Route: l 16:44: IVP, ONCE, [place] Dosing Weight 76.818, kg, Priority: STAT, Start date: 02/19/20 10:44:00 CAREER TECHNICAL COUNSELOR, Stop date: 02/19/20 10:44:00 CAREER TECHNICAL COUNSELOR Morphine 2020-1 No 4 mg, [facility] 04-20 Route: l 16:44: IVP, ONCE, [place] 00 Dosing Weight 76.818, kg, Priority: STAT, Start date: 02/19/20 10:44:00 CAREER TECHNICAL COUNSELOR, Stop date: 02/19/20 10:44:00 CAREER TECHNICAL COUNSELOR Morphine 2019-1 No 4 mg, Memoria 04-20 Route: l 16:44: IVP, ONCE, Dosing Weight 76.818, kg, Priority: STAT, Start date: 02/19/20 10:44:00 CAREER TECHNICAL COUNSELOR, Stop date: 02/19/20 10:44:00 CAREER TECHNICAL COUNSELOR Morphine 2019-1 No 4 mg, Memoria 04-20 Route: l 16:44: IVP, ONCE, Dosing Weight 76.818, kg, Priority: STAT, Start date: 02/19/20 10:44:00 CAREER TECHNICAL COUNSELOR, Stop date: 02/19/20 10:44:00 CAREER TECHNICAL COUNSELOR Morphine 2019-1 No 4 mg, Memoria 04-20 Route: l 16:44: IVP, ONCE, Dosing Weight 76.818, kg, Priority: STAT, Start date: 02/19/20 10:44:00 CAREER TECHNICAL COUNSELOR, Stop date: 02/19/20 10:44:00 CAREER TECHNICAL COUNSELOR Morphine 2019-1 No 4 mg, Memoria 04-20 Route: l 16:44: IVP, ONCE, Dosing Weight 76.818, kg, Priority: STAT, Start date: 02/19/20 10:44:00 CAREER TECHNICAL COUNSELOR, Stop date: 02/19/20 10:44:00 CAREER TECHNICAL COUNSELOR Acetaminoph 2020-0 Yes 1 - 2 tab, Memoria en 300 MG / 6-16 PO, Q6H, l Codeine 20:38: PRN Pain, Tamela nn Phosphate 00 X 4 day, # 30 MG Oral 30 tab, 0 Tablet Refill(s), [Tylenol given to with patient Codeine #3] Acetaminoph 2020-0 Yes 1 - 2 tab, Memoria en 300 MG / 6-16 PO, Q6H, l Codeine 20:38: PRN Pain, Tamela nn Phosphate 00 X 4 day, # 30 MG Oral 30 tab, 0 Tablet Refill(s), [Tylenol given to with patient Codeine #3] Acetaminoph 2020-0 Yes 1 - 2 tab, Memoria en 300 MG / 6-16 PO, Q6H, l Codeine 20:38: PRN Pain, Tamela nn Phosphate 00 X 4 day, # 30 MG Oral 30 tab, 0 Tablet Refill(s), [Tylenol given to with patient Codeine #3] Acetaminoph 2020-0 Yes 1 - 2 tab, Memoria en 300 MG / 6-16 PO, Q6H, l Codeine 20:38: PRN Pain, Tamela nn Phosphate 00 X 4 day, # 30 MG Oral 30 tab, 0 Tablet Refill(s), [Tylenol given to with patient Codeine #3] Acetaminoph 2020-0 Yes 1 - 2 tab, Memoria en 300 MG / 6-16 PO, Q6H, l Codeine 20:38: PRN Pain, Tamela nn Phosphate 00 X 4 day, # 30 MG Oral 30 tab, 0 Tablet Refill(s), [Tylenol given to with patient Codeine #3] Acetaminoph 2020-0 Yes 1 - 2 tab, Memoria en 300 MG / 6-16 PO, Q6H, l Codeine 20:38: PRN Pain, Tamela nn Phosphate 00 X 4 day, # 30 MG Oral 30 tab, 0 Tablet Refill(s), [Tylenol given to with patient Codeine #3] Acetaminoph 2020-0 Yes 1 - 2 tab, Memoria en 300 MG / 6-16 PO, Q6H, l Codeine 20:38: PRN Pain, Tamela nn Phosphate 00 X 4 day, # 30 MG Oral 30 tab, 0 Tablet Refill(s), [Tylenol given to with patient Codeine #3] Acetaminoph 2020-0 Yes 1 - 2 tab, Memoria en 300 MG / 6-16 PO, Q6H, l Codeine 20:38: PRN Pain, Tamela nn Phosphate 00 X 4 day, # 30 MG Oral 30 tab, 0 Tablet Refill(s), [Tylenol given to with patient Codeine #3] Acetaminoph 2020-0 Yes 1 - 2 tab, Memoria en 300 MG / 6-16 PO, Q6H, l Codeine 20:38: PRN Pain, Tamela nn Phosphate 00 X 4 day, # 30 MG Oral 30 tab, 0 Tablet Refill(s), [Tylenol given to with patient Codeine #3] Acetaminoph 2020-0 Yes 1 - 2 tab, Memoria en 300 MG / 6-16 PO, Q6H, l Codeine 20:38: PRN Pain, Tamela nn Phosphate 00 X 4 day, # 30 MG Oral 30 tab, 0 Tablet Refill(s), [Tylenol given to with patient Codeine #3] amLODIPine 2020-0 Yes 5 mg = 1 Mem oria 5 mg oral 6-16 tab, PO, l tablet 19:58: BID, 0 [place] 00 Refill(s) losartan 50 2020-0 Yes 50 mg = 1 M emoria mg oral 6-16 tab, PO, l tablet 19:58: BID, 0 Ben 00 Refill(s) 24 HR 2020-0 Yes 25 mg = 1 Memoria Metoprolol 6-16 tab, PO, l Tartrate 25 19:58: Daily, 0 He rmann MG Extended 00 Refill(s) Release Tablet [Toprol] rosuvastati 2020-0 Yes 10 mg = 1 M emoria n 10 mg 6-16 tab, PO, l oral tablet 19:58: Bedtime, 0 [place] 00 Refill(s) amLODIPine 2020-0 Yes 5 mg = 1 Mem oria 5 mg oral 6-16 tab, PO, l tablet 19:58: BID, 0 [place] 00 Refill(s) losartan 50 2020-0 Yes 50 mg = 1 M emoria mg oral 6-16 tab, PO, l tablet 19:58: BID, 0 [place] 00 Refill(s) 24 HR 2020-0 Yes 25 mg = 1 [facility] Metoprolol 6-16 tab, PO, l Tartrate 25 19:58: Daily, 0 He r[place] MG Extended 00 Refill(s) Release Tablet [Toprol] rosuvastati 2020-0 Yes 10 mg = 1 M emoria n 10 mg 6-16 tab, PO, l oral tablet 19:58: Bedtime, 0 [place] 00 Refill(s) amLODIPine 2020-0 Yes 5 mg = 1 Mem o[facility] 5 mg oral 6-16 tab, PO, l tablet 19:58: BID, 0 [place] 00 Refill(s) losartan 50 2020-0 Yes 50 mg = 1 M emoria mg oral 6-16 tab, PO, l tablet 19:58: BID, 0 [place] 00 Refill(s) 24 HR 2020-0 Yes 25 mg = 1 [facility] Metoprolol 6-16 tab, PO, l Tartrate 25 19:58: Daily, 0 [facility] r[place] MG Extended 00 Refill(s) Release Tablet [Toprol] rosuvastati 2020-0 Yes 10 mg = 1 M emoria n 10 mg 6-16 tab, PO, l oral tablet 19:58: Bedtime, 0 [place] 00 Refill(s) amLODIPine 2020-0 Yes 5 mg = 1 Mem o[facility] 5 mg oral 6-16 tab, PO, l tablet 19:58: BID, 0 [place] 00 Refill(s) losartan 50 2020-0 Yes 50 mg = 1 M emoria mg oral 6-16 tab, PO, l tablet 19:58: BID, 0 [place] 00 Refill(s) 24 HR 2020-0 Yes 25 mg = 1 [facility] Metoprolol 6-16 tab, PO, l Tartrate 25 19:58: Daily, 0 He r[place] MG Extended 00 Refill(s) Release Tablet [Toprol] rosuvastati 2020-0 Yes 10 mg = 1 M emoria n 10 mg 6-16 tab, PO, l oral tablet 19:58: Bedtime, 0 [place] 00 Refill(s) amLODIPine 2020-0 Yes 5 mg = 1 Mem o[facility] 5 mg oral 6-16 tab, PO, l tablet 19:58: BID, 0 [place] 00 Refill(s) losartan 50 2020-0 Yes 50 mg = 1 M emoria mg oral 6-16 tab, PO, l tablet 19:58: BID, 0 [place] 00 Refill(s) 24 HR 2020-0 Yes 25 mg = 1 [facility] Metoprolol 6-16 tab, PO, l Tartrate 25 19:58: Daily, 0 [facility] MG Extended 00 Refill(s) Release Tablet [Toprol] rosuvastati 2020-0 Yes 10 mg = 1 M emoria n 10 mg 6-16 tab, PO, l oral tablet 19:58: Bedtime, 0 [place] 00 Refill(s) amLODIPine 2020-0 Yes 5 mg = 1 Mem o[facility] 5 mg oral 6-16 tab, PO, l tablet 19:58: BID, 0 [place] 00 Refill(s) losartan 50 2020-0 Yes 50 mg = 1 M emoria mg oral 6-16 tab, PO, l tablet 19:58: BID, 0 [place] 00 Refill(s) 24 HR 2020-0 Yes 25 mg = 1 [facility] Metoprolol 6-16 tab, PO, l Tartrate 25 19:58: Daily, 0 [facility] MG Extended 00 Refill(s) Release Tablet [Toprol] rosuvastati 2020-0 Yes 10 mg = 1 M emoria n 10 mg 6-16 tab, PO, l oral tablet 19:58: Bedtime, 0 [place] 00 Refill(s) amLODIPine 2020-0 Yes 5 mg = 1 [facility] 5 mg oral 6-16 tab, PO, l tablet 19:58: BID, 0 [place] 00 Refill(s) losartan 50 2020-0 Yes 50 mg = 1 M emoria mg oral 6-16 tab, PO, l tablet 19:58: BID, 0 [place] 00 Refill(s) 24 HR 2020-0 Yes 25 mg = 1 [facility] Metoprolol 6-16 tab, PO, l Tartrate 25 19:58: Daily, 0 He r[place] MG Extended 00 Refill(s) Release Tablet [Toprol] rosuvastati 2020-0 Yes 10 mg = 1 M emoria n 10 mg 6-16 tab, PO, l oral tablet 19:58: Bedtime, 0 Ben 00 Refill(s) amLODIPine 2020-0 Yes 5 mg = 1 Mem oria 5 mg oral 6-16 tab, PO, l tablet 19:58: BID, 0 [place] 00 Refill(s) losartan 50 2020-0 Yes 50 mg = 1 M emoria mg oral 6-16 tab, PO, l tablet 19:58: BID, 0 Ben 00 Refill(s) 24 HR 2020-0 Yes 25 mg = 1 Memoria Metoprolol 6-16 tab, PO, l Tartrate 25 19:58: Daily, 0 He r[place] MG Extended 00 Refill(s) Release Tablet [Toprol] rosuvastati 2020-0 Yes 10 mg = 1 M emoria n 10 mg 6-16 tab, PO, l oral tablet 19:58: Bedtime, 0 [place] 00 Refill(s) amLODIPine 2020-0 Yes 5 mg = 1 Mem oria 5 mg oral 6-16 tab, PO, l tablet 19:58: BID, 0 Ben 00 Refill(s) losartan 50 2020-0 Yes 50 mg = 1 M emoria mg oral 6-16 tab, PO, l tablet 19:58: BID, 0 [place] 00 Refill(s) 24 HR 2020-0 Yes 25 mg = 1 Memoria Metoprolol 6-16 tab, PO, l Tartrate 25 19:58: Daily, 0 He r[place] MG Extended 00 Refill(s) Release Tablet [Toprol] rosuvastati 2020-0 Yes 10 mg = 1 M emoria n 10 mg 6-16 tab, PO, l oral tablet 19:58: Bedtime, 0 [place] 00 Refill(s) amLODIPine 2020-0 Yes 5 mg = 1 Mem oria 5 mg oral 6-16 tab, PO, l tablet 19:58: BID, 0 Ben 00 Refill(s) losartan 50 2020-0 Yes 50 mg = 1 M emoria mg oral 6-16 tab, PO, l tablet 19:58: BID, 0 [place] 00 Refill(s) 24 HR 2020-0 Yes 25 mg = 1 Memoria Metoprolol 6-16 tab, PO, l Tartrate 25 19:58: Daily, 0 [facility] MG Extended 00 Refill(s) Release Tablet [Toprol] rosuvastati 2020-0 Yes 10 mg = 1 M emoria n 10 mg 6-16 tab, PO, l oral tablet 19:58: Bedtime, 0 [place] 00 Refill(s) BD Normal 2019-0 No Notes: Memori a Saline 6-13 (Same as: l Flush 16:52: BD [place] 00 Posiflush) Sodium 2020-0 No 25 mL, Memoria Chloride 6-13 Route: IV, l 0.9% IV 16:52: Start Ben 00 date: 09/03/19 11:52:00 CDT, Duration: 30 day, Stop date: 10/03/19 11:51:00 CDT, PRN Line Flush, 0 BD Normal 2020-0 No Notes: Memori a Saline 6-13 (Same as: l Flush 16:52: BD [place] 00 Posiflush) Sodium 2020-0 No 25 mL, Memoria Chloride 6-13 Route: IV, l 0.9% IV 16:52: Start date: 09/03/19 11:52:00 CDT, Duration: 30 day, Stop date: 10/03/19 11:51:00 CDT, PRN Line Flush, 0 BD Normal 2020-0 No Notes: Memori a Saline 6-13 (Same as: l Flush 16:52: BD Ben 00 Posiflush) Sodium 2020-0 No 25 mL, Memoria Chloride 6-13 Route: IV, l 0.9% IV 16:52: Start date: 09/03/19 11:52:00 CDT, Duration: 30 day, Stop date: 10/03/19 11:51:00 CDT, PRN Line Flush, 0 BD Normal 2020-0 No Notes: Memori a Saline 6-13 (Same as: l Flush 16:52: BD Ben 00 Posiflush) Sodium 2020-0 No 25 mL, Memoria Chloride 6-13 Route: IV, l 0.9% IV 16:52: date: 09/03/19 11:52:00 CDT, Duration: 30 day, Stop date: 10/03/19 11:51:00 CDT, PRN Line Flush, 0 BD Normal 2020-0 No Notes: Memori a Saline 6-13 (Same as: l Flush 16:52: BD [place] 00 Posiflush) Sodium 2020-0 No 25 mL, Memoria Chloride 6-13 Route: IV, l 0.9% IV 16:52: Start date: 09/03/19 11:52:00 CDT, Duration: 30 day, Stop date: 10/03/19 11:51:00 CDT, PRN Line Flush, 0 BD Normal 2020-0 No Notes: Memori a Saline 6-13 (Same as: l Flush 16:52: BD [place] 00 Posiflush) Sodium 2020-0 No 25 mL, Memoria Chloride 6-13 Route: IV, l 0.9% IV 16:52: Start date: 09/03/19 11:52:00 CDT, Duration: 30 day, Stop date: 10/03/19 11:51:00 CDT, PRN Line Flush, 0 BD Normal 2020-0 No Notes: Memori a Saline 6-13 (Same as: l Flush 16:52: BD Ben 00 Posiflush) Sodium 2020-0 No 25 mL, Memoria Chloride 6-13 Route: IV, l 0.9% IV 16:52: Start date: 09/03/19 11:52:00 CDT, Duration: 30 day, Stop date: 10/03/19 11:51:00 CDT, PRN Line Flush, 0 BD Normal 2020-0 No Notes: Memori a Saline 6-13 (Same as: l Flush 16:52: BD Posiflush) Sodium 2020-0 No 25 mL, Memoria Chloride 6-13 Route: IV, l 0.9% IV 16:52: Start date: 09/03/19 11:52:00 CDT, Duration: 30 day, Stop date: 10/03/19 11:51:00 CDT, PRN Line Flush, 0 BD Normal 2020-0 No Notes: Memori a Saline 6-13 (Same as: l Flush 16:52: BD Posiflush) Sodium 2020-0 No 25 mL, Memoria Chloride 6-13 Route: IV, l 0.9% IV 16:52: Start date: 09/03/19 11:52:00 CDT, Duration: 30 day, Stop date: 10/03/19 11:51:00 CDT, PRN Line Flush, 0 BD Normal 2020-0 No Notes: Memori a Saline 6-13 (Same as: l Flush 16:52: BD Posiflush) Sodium 2020-0 No 25 mL, Memoria Chloride 6-13 Route: IV, l 0.9% IV 16:52: Start date: 09/03/19 11:52:00 CDT, Duration: 30 day, Stop date: 10/03/19 11:51:00 CDT, PRN Line Flush, 0 Pepcid 2020-0 No 10 mg, 1 Memoria 6-13 mL, Route: l 16:51: IVP, Drug form: INJ, BID, Dosing Weight 77.273, kg, Start date: 09/03/19 11:51:00 CDT, Duration: 30 day, Stop date: 10/03/19 9:00:00 CDT, 0 Pepcid 2020-0 No 10 mg, 1 Memoria 6-13 mL, Route: l 16:51: IVP, Drug Ben 00 form: INJ, BID, Dosing Weight 77.273, kg, Start date: 09/03/19 11:51:00 CDT, Duration: 30 day, Stop date: 10/03/19 9:00:00 CDT, 0 Pepcid 2020-0 No 10 mg, 1 Memoria 6-13 mL, Route: l 16:51: IVP, Drug Ben 00 form: INJ, BID, Dosing Weight 77.273, kg, Start date: 09/03/19 11:51:00 CDT, Duration: 30 day, Stop date: 10/03/19 9:00:00 CDT, 0 Pepcid 2020-0 No 10 mg, 1 Memoria 6-13 mL, Route: l 16:51: IVP, Drug [place] 00 form: INJ, BID, Dosing Weight 77.273, kg, Start date: 09/03/19 11:51:00 CDT, Duration: 30 day, Stop date: 10/03/19 9:00:00 CDT, 0 Pepcid 2020-0 No 10 mg, 1 Memoria 6-13 mL, Route: l 16:51: IVP, Drug Ben 00 form: INJ, BID, Dosing Weight 77.273, kg, Start date: 09/03/19 11:51:00 CDT, Duration: 30 day, Stop date: 10/03/19 9:00:00 CDT, 0 Pepcid 2020-0 No 10 mg, 1 Memoria 6-13 mL, Route: l 16:51: IVP, Drug Ben 00 form: INJ, BID, Dosing Weight 77.273, kg, Start date: 09/03/19 11:51:00 CDT, Duration: 30 day, Stop date: 10/03/19 9:00:00 CDT, 0 Pepcid 2020-0 No 10 mg, 1 Memoria 6-13 mL, Route: l 16:51: IVP, Drug Ben 00 form: INJ, BID, Dosing Weight 77.273, kg, Start date: 09/03/19 11:51:00 CDT, Duration: 30 day, Stop date: 10/03/19 9:00:00 CDT, 0 Pepcid 2020-0 No 10 mg, 1 Memoria 6-13 mL, Route: l 16:51: IVP, Drug [place] 00 form: INJ, BID, Dosing Weight 77.273, kg, Start date: 09/03/19 11:51:00 CDT, Duration: 30 day, Stop date: 10/03/19 9:00:00 CDT, 0 Pepcid 2020-0 No 10 mg, 1 Memoria 6-13 mL, Route: l 16:51: IVP, Drug [place] 00 form: INJ, BID, Dosing Weight 77.273, kg, Start date: 09/03/19 11:51:00 CDT, Duration: 30 day, Stop date: 10/03/19 9:00:00 CDT, 0 Pepcid 2020-0 No 10 mg, 1 Memoria 6-13 mL, Route: l 16:51: IVP, Drug [place] 00 form: INJ, BID, Dosing Weight 77.273, kg, Start date: 09/03/19 11:51:00 CDT, Duration: 30 day, Stop date: 10/03/19 9:00:00 CDT, 0 Acetaminoph 2019-0 No Notes: Do M emoria en 300 MG / 6-12 not exceed l Codeine 17:04: 4gm/day of Herm kendra Phosphate 00 acetaminop 30 MG Oral hen. Tablet (Same as: [Tylenol Tylenol with with Codeine #3] Codeine # 3) Acetaminoph 0 No Notes: Do M emoria en 300 MG / 6-12 not exceed l Codeine 17:04: 4gm/day of Herm kendra Phosphate 00 acetaminop 30 MG Oral hen. Tablet (Same as: [Tylenol Tylenol with with Codeine #3] Codeine # 3) Acetaminoph 0 No Notes: Do M emoria en 300 MG / 6-12 not exceed l Codeine 17:04: 4gm/day of Herm kendra Phosphate 00 acetaminop 30 MG Oral hen. Tablet (Same as: [Tylenol Tylenol with with Codeine #3] Codeine # 3) Acetaminoph No Notes: Do M emoria en 300 MG / 6-12 not exceed l Codeine 17:04: 4gm/day of Herm kendra Phosphate 00 acetaminop 30 MG Oral hen. Tablet (Same as: [Tylenol Tylenol with with Codeine #3] Codeine # 3) Acetaminoph No Notes: Do M emoria en 300 MG / 6-12 not exceed l Codeine 17:04: 4gm/day of Herm kendra Phosphate 00 acetaminop 30 MG Oral hen. Tablet (Same as: [Tylenol Tylenol with with Codeine #3] Codeine # 3) Acetaminoph No Notes: Do M emoria en 300 MG / 6-12 not exceed l Codeine 17:04: 4gm/day of Herm kendra Phosphate 00 acetaminop 30 MG Oral hen. Tablet (Same as: [Tylenol Tylenol with with Codeine #3] Codeine # 3) Acetaminoph No Notes: Do M emoria en 300 MG / 6-12 not exceed l Codeine 17:04: 4gm/day of Herm kendra Phosphate 00 acetaminop 30 MG Oral hen. Tablet (Same as: [Tylenol Tylenol with with Codeine #3] Codeine # 3) Acetaminoph No Notes: Do M emoria en 300 MG / 6-12 not exceed l Codeine 17:04: 4gm/day of Herm kendra Phosphate 00 acetaminop 30 MG Oral hen. Tablet (Same as: [Tylenol Tylenol with with Codeine #3] Codeine # 3) Acetaminoph No Notes: Do M emoria en 300 MG / 6-12 not exceed l Codeine 17:04: 4gm/day of Herm kendra Phosphate 00 acetaminop 30 MG Oral hen. Tablet (Same as: [Tylenol Tylenol with with Codeine #3] Codeine # 3) Acetaminoph No Notes: Do M emoria en 300 MG / 6-12 not exceed l Codeine 17:04: 4gm/day of Herm kendra Phosphate 00 acetaminop 30 MG Oral hen. Tablet (Same as: [Tylenol Tylenol with with Codeine #3] Codeine # 3) Dilaudid 2020-0 No Notes: Memoria 6-12 Same as l 17:03: Dilaudid [place] 00 Dilaudid 2020-0 No Notes: Memoria 6-12 Same as l 17:03: Dilaudid [place] 00 Dilaudid 2020-0 No Notes: Memoria 6-12 Same as l 17:03: Dilaudid [place] 00 Dilaudid 2020-0 No Notes: Memoria 6-12 Same as l 17:03: Dilaudid [place] 00 Dilaudid 2020-0 No Notes: Memoria 6-12 Same as l 17:03: Dilaudid [place] 00 Dilaudid 2020-0 No Notes: Memoria 6-12 Same as l 17:03: Dilaudid [place] 00 Dilaudid 2020-0 No Notes: Memoria 6-12 Same as l 17:03: Dilaudid [place] 00 Dilaudid 2020-0 No Notes: Memoria 6-12 Same as l 17:03: Dilaudid [place] 00 Dilaudid 2020-0 No Notes: Memoria 6-12 Same as l 17:03: Dilaudid [place] 00 Dilaudid 2020-0 No Notes: Memoria 6-12 Same as l 17:03: Dilaudid [place] 00 Amlodipine 2020-0 No Notes: Memor ia 6-12 (Same as: l 14:00: Norvasc) [place] 00 Losartan 0 No Notes: Memoria 6-12 (Same as: l 14:00: Cozaar) [place] 24 HR 0 No Notes: Memoria Metoprolol 6-12 (Same as: l Tartrate 25 14:00: Toprol XL) [place] MG Extended 00 Do Not Release Crush Tablet [Toprol] Amlodipine 2019-0 No Notes: Memor ia 6-12 (Same as: l 14:00: Norvasc) [place] 00 Losartan 2019-0 No Notes: Memoria 6-12 (Same as: l 14:00: Cozaar) [place] 00 24 HR 0 No Notes: Memoria Metoprolol 6-12 (Same as: l Tartrate 25 14:00: Toprol XL) [place] MG Extended 00 Do Not Release Crush Tablet [Toprol] Amlodipine 2020-0 No Notes: Memor ia 6-12 (Same as: l 14:00: Norvasc) [place] 00 Losartan 0 No Notes: Memoria 6-12 (Same as: l 14:00: Cozaar) [place] 00 24 HR 0 No Notes: Memoria Metoprolol 6-12 (Same as: l Tartrate 25 14:00: Toprol XL) Ben MG Extended 00 Do Not Release Crush Tablet [Toprol] Amlodipine 2020-0 No Notes: Memor ia 6-12 (Same as: l 14:00: Norvasc) Losartan 0 No Notes: Memoria 6-12 (Same as: l 14:00: Cozaar) 24 HR 0 No Notes: Memoria Metoprolol 6-12 (Same as: l Tartrate 25 14:00: Toprol XL) Ben MG Extended Do Not Release Crush Tablet [Toprol] Amlodipine 0 No Notes: Memor ia 6-12 (Same as: l 14:00: Norvasc) Losartan 0 No Notes: Memoria 6-12 (Same as: l 14:00: Cozaar) HR No Notes: Memoria Metoprolol 6-12 (Same as: l Tartrate 25 14:00: Toprol XL) [place] MG Extended 00 Do Not Release Crush Tablet [Toprol] Amlodipine 2019-0 No Notes: Memor ia 6-12 (Same as: l 14:00: Norvasc) Losartan 0 No Notes: Memoria 6-12 (Same as: l 14:00: Cozaar) 24 HR 0 No Notes: Memoria Metoprolol 6-12 (Same as: l Tartrate 25 14:00: Toprol XL) Ben MG Extended 00 Do Not Release Crush Tablet [Toprol] Amlodipine 2019-0 No Notes: Memor ia 6-12 (Same as: l 14:00: Norvasc) Losartan 0 No Notes: Memoria 6-12 (Same as: l 14:00: Cozaar) 24 HR 0 No Notes: Memoria Metoprolol 6-12 (Same as: l Tartrate 25 14:00: Toprol XL) Ben MG Extended 00 Do Not Release Crush Tablet [Toprol] Amlodipine 2019-0 No Notes: Memor ia 6-12 (Same as: l 14:00: Norvasc) [place] Losartan 2019-0 No Notes: Memoria 6-12 (Same as: l 14:00: Cozaar) Ben 24 HR 0 No Notes: Memoria Metoprolol 6-12 (Same as: l Tartrate 25 14:00: Toprol XL) [place] MG Extended 00 Do Not Release Crush Tablet [Toprol] Amlodipine 0 No Notes: Memor ia 6-12 (Same as: l 14:00: Norvasc) [place] 00 Losartan 0 No Notes: Memoria 6-12 (Same as: l 14:00: Cozaar) [place] 24 HR 0 No Notes: Memoria Metoprolol 6-12 (Same as: l Tartrate 25 14:00: Toprol XL) Ben MG Extended 00 Do Not Release Crush Tablet [Toprol] Amlodipine 0 No Notes: Memor ia 6-12 (Same as: l 14:00: Norvasc) [place] 00 Losartan 0 No Notes: Memoria 6-12 (Same as: l 14:00: Cozaar) [place] 24 HR 0 No Notes: Memoria Metoprolol 6-12 (Same as: l Tartrate 25 14:00: Toprol XL) Ben MG Extended 00 Do Not Release Crush Tablet [Toprol] Enoxaparin 0 No Notes: Memor ia 6-12 (Same as: l 10:00: Lovenox) Enoxaparin 2019-0 No Notes: Memor ia 6-12 (Same as: l 10:00: Lovenox) [place] 00 Enoxaparin 2019-0 No Notes: Memor ia 6-12 (Same as: l 10:00: Lovenox) [place] 00 Enoxaparin 2019-0 No Notes: Memor ia 6-12 (Same as: l 10:00: Lovenox) [place] 00 Enoxaparin 2019-0 No Notes: Memor ia 6-12 (Same as: l 10:00: Lovenox) Enoxaparin 2019-0 No Notes: Memor ia 6-12 (Same as: l 10:00: Lovenox) [place] 00 Enoxaparin 2020-0 No Notes: Memor ia 6-12 (Same as: l 10:00: Lovenox) [place] 00 Enoxaparin 2020-0 No Notes: Memor ia 6-12 (Same as: l 10:00: Lovenox) [place] 00 Enoxaparin 2020-0 No Notes: Memor ia 6-12 (Same as: l 10:00: Lovenox) [place] 00 Enoxaparin 2020-0 No Notes: Memor ia 6-12 (Same as: l 10:00: Lovenox) [place] 00 Protonix 2019-0 No Notes: For Mem oria 6-12 IV push l 04:00: reconstitu [place] 00 te with 10 ml 0.9% sodium chloride and push over 2 minutes. (Same as: Protonix) Protonix 2019-0 No Notes: For Mem oria 6-12 IV push l 04:00: reconstitu [place] 00 te with 10 ml 0.9% sodium chloride and push over 2 minutes. (Same as: Protonix) Protonix 2019- No Notes: For Mem oria 6-12 IV push l 04:00: reconstitu [place] 00 te with 10 ml 0.9% sodium chloride and push over 2 minutes. (Same as: Protonix) Protonix 2019-0 No Notes: For Mem oria 6-12 IV push l 04:00: reconstitu [place] 00 te with 10 ml 0.9% sodium chloride and push over 2 minutes. (Same as: Protonix) Protonix 0 No Notes: For Mem oria 6-12 IV push l 04:00: reconstitu [place] 00 te with 10 ml 0.9% sodium chloride and push over 2 minutes. (Same as: Protonix) Protonix 2019-0 No Notes: For Mem oria 6-12 IV push l 04:00: reconstitu [place] 00 te with 10 ml 0.9% sodium chloride and push over 2 minutes. (Same as: Protonix) Protonix 2020-0 No Notes: For Mem oria 6-12 IV push l 04:00: reconstitu [place] 00 te with 10 ml 0.9% sodium chloride and push over 2 minutes. (Same as: Protonix) Protonix 2019-0 No Notes: For Mem oria 6-12 IV push l 04:00: reconstitu [place] 00 te with 10 ml 0.9% sodium chloride and push over 2 minutes. (Same as: Protonix) Protonix 2019-0 No Notes: For Mem oria 6-12 IV push l 04:00: reconstitu [place] 00 te with 10 ml 0.9% sodium chloride and push over 2 minutes. (Same as: Protonix) Protonix 2019-0 No Notes: For Mem oria 6-12 IV push l 04:00: reconstitu [place] 00 te with 10 ml 0.9% sodium chloride and push over 2 minutes. (Same as: Protonix) rosuvastati 2020-0 No Notes: Abraham joana n 6-12 (Same As: l 02:00: Crestor) Ben rosuvastati 2019-0 No Notes: Abraham joana n 6-12 (Same As: l 02:00: Crestor) [place] rosuvastati 2019-0 No Notes: Abraham joana n 6-12 (Same As: l 02:00: Crestor) [place] rosuvastati 2019-0 No Notes: Abraham joana n 6-12 (Same As: l 02:00: Crestor) Ben rosuvastati 2019-0 No Notes: Abraham joana n 6-12 (Same As: l 02:00: Crestor) [place] 00 rosuvastati 2020-0 No Notes: Abraham joana n 6-12 (Same As: l 02:00: Crestor) [place] rosuvastati 2020-0 No Notes: Abraham joana n 6-12 (Same As: l 02:00: Crestor) [place] rosuvastati 2020-0 No Notes: Abraham joana n 6-12 (Same As: l 02:00: Crestor) [place] rosuvastati 2020-0 No Notes: Abraham joana n 6-12 (Same As: l 02:00: Crestor) [place] 00 rosuvastati 2020-0 No Notes: Abraham joana n 6-12 (Same As: l 02:00: Crestor) [place] 00 Phenergan 2019-0 No Notes: Do Mem oria 6-11 not give l 23:59: IV push. Ben 00 (Same as: Phenergan) Phenergan 2019-0 No Notes: Do Mem oria 6-11 not give l 23:59: IV push. [place] 00 (Same as: Phenergan) Phenergan No Notes: Do Mem oria 6-11 not give l 23:59: IV push. [place] 00 (Same as: Phenergan) Phenergan No Notes: Do Mem oria 6-11 not give l 23:59: IV push. Ben 00 (Same as: Phenergan) Phenergan No Notes: Do Mem oria 6-11 not give l 23:59: IV push. [place] 00 (Same as: Phenergan) Phenergan No Notes: Do Mem oria 6-11 not give l 23:59: IV push. [place] 00 (Same as: Phenergan) Phenergan No Notes: Do Mem oria 6-11 not give l 23:59: IV push. [place] (Same as: Phenergan) Phenergan No Notes: Do Mem oria 6-11 not give l 23:59: IV push. [place] 00 (Same as: Phenergan) Phenergan No Notes: Do Mem oria 6-11 not give l 23:59: IV push. [place] 00 (Same as: Phenergan) Phenergan No Notes: Do Mem oria 6-11 not give l 23:59: IV push. Ben 00 (Same as: Phenergan) D5W 1/2NS + No Notes: Abraham joana KCL 20mEq/L 6-11 PREMIX IV l 1000ml 23:58: - Do Not Ben (Premix) 00 Alter 1,000 mL WASTE: F/P - Sink; E - Municipal Trash Bin D5W 1/2NS + 2019- No Notes: Abraham joana KCL 20mEq/L 6-11 PREMIX IV l 1000ml 23:58: - Do Not [place] (Premix) 00 Alter 1,000 mL WASTE: F/P - Sink; E - Municipal Trash Bin D5W 1/2NS + 2019- No Notes: Abraham joana KCL 20mEq/L 6-11 PREMIX IV l 1000ml 23:58: - Do Not [place] (Premix) 00 Alter 1,000 mL WASTE: F/P - Sink; E - Municipal Trash Bin D5W 1/2NS + 2020-0 No Notes: Abraham joana KCL 20mEq/L 6-11 PREMIX IV l 1000ml 23:58: - Do Not [place] (Premix) 00 Alter 1,000 mL WASTE: F/P - Sink; E - Municipal Trash Bin D5W 1/2NS + 2020-0 No Notes: Abraham joana KCL 20mEq/L 6-11 PREMIX IV l 1000ml 23:58: - Do Not [place] (Premix) 00 Alter 1,000 mL WASTE: F/P - Sink; E - Municipal Trash Bin D5W 1/2NS + 2020-0 No Notes: Abraham joana KCL 20mEq/L 6-11 PREMIX IV l 1000ml 23:58: - Do Not [place] (Premix) 00 Alter 1,000 mL WASTE: F/P - Sink; E - [facility] Trash Bin D5W 1/2NS + 2020-0 No Notes: Abraham joana KCL 20mEq/L 6-11 PREMIX IV l 1000ml 23:58: - Do Not Ben (Premix) 00 Alter 1,000 mL WASTE: F/P - Sink; E - [facility] Trash Bin D5W 1/2NS + 2020-0 No Notes: Abraham joana KCL 20mEq/L 6-11 PREMIX IV l 1000ml 23:58: - Do Not [place] (Premix) 00 Alter 1,000 mL WASTE: F/P - Sink; E - [facility] Trash Bin D5W 1/2NS + 2020-0 No Notes: Abraham joana KCL 20mEq/L 6-11 PREMIX IV l 1000ml 23:58: - Do Not [place] (Premix) 00 Alter 1,000 mL WASTE: F/P - Sink; E - Municipal Trash Bin D5W 1/2NS + 2020-0 No Notes: Abraham joana KCL 20mEq/L 6-11 PREMIX IV l 1000ml 23:58: - Do Not Ben (Premix) 00 Alter 1,000 mL WASTE: F/P - Sink; E - Municipal Trash Bin Ofirmev 2020-0 No 1,000 mg, Memor ia 6-11 Route: l 20:07: IVPB, [place] 00 ONCE, Dosing Weight 77.273, kg, Start date: 09/01/19 15:07:00 CDT, Stop date: 09/01/19 15:07:00 CDT Ofirmev 2020-0 No 1,000 mg, Memor ia 6-11 Route: l 20:07: IVPB, Ben 00 ONCE, Dosing Weight 77.273, kg, Start date: 09/01/19 15:07:00 CDT, Stop date: 09/01/19 15:07:00 CDT Ofirmev 2020-0 No 1,000 mg, Memor ia 6-11 Route: l 20:07: IVPB, [place] 00 ONCE, Dosing Weight 77.273, kg, Start date: 09/01/19 15:07:00 CDT, Stop date: 09/01/19 15:07:00 CDT Ofirmev 2020-0 No 1,000 mg, Memor ia 6-11 Route: l 20:07: IVPB, [place] 00 ONCE, Dosing Weight 77.273, kg, Start date: 09/01/19 15:07:00 CDT, Stop date: 09/01/19 15:07:00 CDT Ofirmev 2020-0 No 1,000 mg, Memor ia 6-11 Route: l 20:07: IVPB, Ben 00 ONCE, Dosing Weight 77.273, kg, Start date: 09/01/19 15:07:00 CDT, Stop date: 09/01/19 15:07:00 CDT Ofirmev 2020-0 No 1,000 mg, Memor ia 6-11 Route: l 20:07: IVPB, Ben 00 ONCE, Dosing Weight 77.273, kg, Start date: 09/01/19 15:07:00 CDT, Stop date: 09/01/19 15:07:00 CDT Ofirmev 2020-0 No 1,000 mg, Memor ia 6-11 Route: l 20:07: IVPB, [place] 00 ONCE, Dosing Weight 77.273, kg, Start date: 09/01/19 15:07:00 CDT, Stop date: 09/01/19 15:07:00 CDT Ofirmev 2020-0 No 1,000 mg, Memor ia 6-11 Route: l 20:07: IVPB, [place] 00 ONCE, Dosing Weight 77.273, kg, Start date: 09/01/19 15:07:00 CDT, Stop date: 09/01/19 15:07:00 CDT Ofirmev 2020-0 No 1,000 mg, Memor ia 6-11 Route: l 20:07: IVPB, [place] 00 ONCE, Dosing Weight 77.273, kg, Start date: 09/01/19 15:07:00 CDT, Stop date: 09/01/19 15:07:00 CDT Ofirmev 2020-0 No 1,000 mg, Memor ia 6-11 Route: l 20:07: IVPB, [place] 00 ONCE, Dosing Weight 77.273, kg, Start date: 09/01/19 15:07:00 CDT, Stop date: 09/01/19 15:07:00 CDT ondansetron 2020-0 No Route: IV, Memoria (ANES) 6-11 Drug form: l 19:30: INJ, ONCE, [place] 00 Stop date: 09/01/19 14:30:00 CDT morphine 2020-0 No Route: IV, Mem oria Sulfate 6-11 Drug form: l (ANES) 19:30: INJ, ONCE, Tamela nn Stop date: 09/01/19 14:30:00 CDT ondansetron 2020-0 No Route: IV, Memoria (ANES) 6-11 Drug form: l 19:30: INJ, ONCE, Ben Stop date: 09/01/19 14:30:00 CDT morphine 2020-0 No Route: IV, Mem oria Sulfate 6-11 Drug form: l (ANES) 19:30: INJ, ONCE, [place]ela nn Stop date: 09/01/19 14:30:00 CDT ondansetron 2020-0 No Route: IV, Memoria (ANES) 6-11 Drug form: l 19:30: INJ, ONCE, Ben 00 Stop date: 09/01/19 14:30:00 CDT morphine 2020-0 No Route: IV, Mem oria Sulfate 6-11 Drug form: l (ANES) 19:30: INJ, ONCE, Tamela nn Stop date: 09/01/19 14:30:00 CDT ondansetron 2020-0 No Route: IV, Memoria (ANES) 6-11 Drug form: l 19:30: INJ, ONCE, [place] 00 Stop date: 09/01/19 14:30:00 CDT morphine 2020-0 No Route: IV, Mem oria Sulfate 6-11 Drug form: l (ANES) 19:30: INJ, ONCE, Tamela nn Stop date: 09/01/19 14:30:00 CDT ondansetron 2020-0 No Route: IV, Memoria (ANES) 6-11 Drug form: l 19:30: INJ, ONCE, [place] 00 Stop date: 09/01/19 14:30:00 CDT morphine 2020-0 No Route: IV, Mem oria Sulfate 6-11 Drug form: l (ANES) 19:30: INJ, ONCE, Tamela nn Stop date: 09/01/19 14:30:00 CDT ondansetron 2020-0 No Route: IV, Memoria (ANES) 6-11 Drug form: l 19:30: INJ, ONCE, [place] 00 Stop date: 09/01/19 14:30:00 CDT morphine 2020-0 No Route: IV, Mem oria Sulfate 6-11 Drug form: l (ANES) 19:30: INJ, ONCE, Tamela Stop date: 09/01/19 14:30:00 CDT ondansetron 2020-0 No Route: IV, Memoria (ANES) 6-11 Drug form: l 19:30: INJ, ONCE, [place] 00 Stop date: 09/01/19 14:30:00 CDT morphine 2020-0 No Route: IV, Mem oria Sulfate 6-11 Drug form: l (ANES) 19:30: INJ, ONCE, Tamela nn Stop date: 09/01/19 14:30:00 CDT ondansetron 2020-0 No Route: IV, Memoria (ANES) 6-11 Drug form: l 19:30: INJ, ONCE, [place] 00 Stop date: 09/01/19 14:30:00 CDT morphine 2020-0 No Route: IV, Mem oria Sulfate 6-11 Drug form: l (ANES) 19:30: INJ, ONCE, Tamela nn Stop date: 09/01/19 14:30:00 CDT ondansetron 2020-0 No Route: IV, Memoria (ANES) 6-11 Drug form: l 19:30: INJ, ONCE, [place] Stop date: 09/01/19 14:30:00 CDT morphine 2020-0 No Route: IV, Mem oria Sulfate 6-11 Drug form: l (ANES) 19:30: INJ, ONCE, Tamela Stop date: 09/01/19 14:30:00 CDT ondansetron 2020-0 No Route: IV, Memoria (ANES) 6-11 Drug form: l 19:30: INJ, ONCE, Ben Stop date: 09/01/19 14:30:00 CDT morphine 2020-0 No Route: IV, Mem oria Sulfate 6-11 Drug form: l (ANES) 19:30: INJ, ONCE, Tamela Stop date: 09/01/19 14:30:00 CDT Phenergan 2020-0 No 6.25 mg, Abraham joana 6-11 Route: l 19:26: IVPB, Ben 00 ONCE, Dosing Weight 77.273, kg, Start date: 09/01/19 14:26:00 CDT, Stop date: 09/01/19 14:26:00 CDT Phenergan 2020-0 No 6.25 mg, Abraham joana 6-11 Route: l 19:26: IVPB, Ben 00 ONCE, Dosing Weight 77.273, kg, Start date: 09/01/19 14:26:00 CDT, Stop date: 09/01/19 14:26:00 CDT Phenergan 2020-0 No 6.25 mg, Abraham joana 6-11 Route: l 19:26: IVPB, [place] 00 ONCE, Dosing Weight 77.273, kg, Start date: 09/01/19 14:26:00 CDT, Stop date: 09/01/19 14:26:00 CDT Phenergan 2020-0 No 6.25 mg, Abraham joana 6-11 Route: l 19:26: IVPB, [place] 00 ONCE, Dosing Weight 77.273, kg, Start date: 09/01/19 14:26:00 CDT, Stop date: 09/01/19 14:26:00 CDT Phenergan 2020-0 No 6.25 mg, Abraham joana 6-11 Route: l 19:26: IVPB, Ben 00 ONCE, Dosing Weight 77.273, kg, Start date: 09/01/19 14:26:00 CDT, Stop date: 09/01/19 14:26:00 CDT Phenergan 2020-0 No 6.25 mg, Abraham joana 6-11 Route: l 19:26: IVPB, [place] 00 ONCE, Dosing Weight 77.273, kg, Start date: 09/01/19 14:26:00 CDT, Stop date: 09/01/19 14:26:00 CDT Phenergan 2020-0 No 6.25 mg, Abraham joana 6-11 Route: l 19:26: IVPB, [place] 00 ONCE, Dosing Weight 77.273, kg, Start date: 09/01/19 14:26:00 CDT, Stop date: 09/01/19 14:26:00 CDT Phenergan 2020-0 No 6.25 mg, Abraham joana 6-11 Route: l 19:26: IVPB, [place] 00 ONCE, Dosing Weight 77.273, kg, Start date: 09/01/19 14:26:00 CDT, Stop date: 09/01/19 14:26:00 CDT Phenergan 2020-0 No 6.25 mg, Abraham joana 6-11 Route: l 19:26: IVPB, [place] 00 ONCE, Dosing Weight 77.273, kg, Start date: 09/01/19 14:26:00 CDT, Stop date: 09/01/19 14:26:00 CDT Phenergan 2020-0 No 6.25 mg, Abraham joana 6-11 Route: l 19:26: IVPB, Ben 00 ONCE, Dosing Weight 77.273, kg, Start date: 09/01/19 14:26:00 CDT, Stop date: 09/01/19 14:26:00 CDT Zofran 2020-0 No Notes: Memoria 6-11 (Same as: l : Zofran) Ben MEDICATION WASTE Product Size: 4 mg Product Wasted: ___ mg Zofran 2020-0 No Notes: Memoria 6-11 (Same as: l :: Zofran) Ben 00 MEDICATION WASTE Product Size: 4 mg Product Wasted: ___ mg Zofran 2020-0 No Notes: Memoria 6-11 (Same as: l 19:20: Zofran) Ben 00 MEDICATION WASTE Product Size: 4 mg Product Wasted: ___ mg Zofran 2020-0 No Notes: Memoria 6-11 (Same as: l 19:20: Zofran) Ben 00 MEDICATION WASTE Product Size: 4 mg Product Wasted: ___ mg Zofran 2020-0 No Notes: Memoria 6-11 (Same as: l 19:20: Zofran) Ben 00 MEDICATION WASTE Product Size: 4 mg Product Wasted: ___ mg Zofran 2020-0 No Notes: Memoria 6-11 (Same as: l 19:20: Zofran) Ben 00 MEDICATION WASTE Product Size: 4 mg Product Wasted: ___ mg Zofran 2020-0 No Notes: Memoria 6-11 (Same as: l 19:20: Zofran) Ben 00 MEDICATION WASTE Product Size: 4 mg Product Wasted: ___ mg Zofran 2020-0 No Notes: Memoria 6-11 (Same as: l 19:20: Zofran) Ben 00 MEDICATION WASTE Product Size: 4 mg Product Wasted: ___ mg Zofran 2020-0 No Notes: Memoria 6-11 (Same as: l 19:20: Zofran) Ben 00 MEDICATION WASTE Product Size: 4 mg Product Wasted: ___ mg Zofran 2020-0 No Notes: Memoria 6-11 (Same as: l 19:20: Zofran) Ben 00 MEDICATION WASTE Product Size: 4 mg Product Wasted: ___ mg Morphine 2020-0 No Notes: Memoria 6-11 (Same l 19:19: as:MORPhin Ben 00 e Sulfate) Morphine 2020-0 No Notes: Memoria 6-11 (Same l 19:19: as:MORPhin Ben 00 e Sulfate) Morphine 2020-0 No Notes: Memoria 6-11 (Same l 19:19: as:MORPhin Ben 00 e Sulfate) Morphine 2020-0 No Notes: Memoria 6-11 (Same l 19:19: as:MORPhin [place] 00 e Sulfate) Morphine 2020-0 No Notes: Memoria 6-11 (Same l 19:19: as:MORPhin Ben 00 e Sulfate) Morphine 2020-0 No Notes: Memoria 6-11 (Same l 19:19: as:MORPhin [place] 00 e Sulfate) Morphine 2020-0 No Notes: Memoria 6-11 (Same l 19:19: as:MORPhin [place] 00 e Sulfate) Morphine 2020-0 No Notes: Memoria 6-11 (Same l 19:19: as:MORPhin [place] 00 e Sulfate) Morphine 2020-0 No Notes: Memoria 6-11 (Same l 19:19: as:MORPhin [place] 00 e Sulfate) Morphine 2019-0 No Notes: Memoria 6-11 (Same l 19:19: as:MORPhin Ben 00 e Sulfate) ePHEDrine 2020-0 No Route: IV, Me moria (ANES) 08-31 Drug form: l 19:18: INJ, ONCE, Stop date: 09/01/19 14:18:00 CDT glycopyrrol 2019-0 No Route: IV, Memoria ate (ANES) 08-31 Drug form: l 19:18: INJ, ONCE, Stop date: 09/01/19 14:18:00 CDT neostigmine 2019-0 No Route: IV, Memoria (ANES) 6 Drug form: l 19:18: INJ, ONCE, Stop date: 09/01/19 14:18:00 CDT ePHEDrine 2020-0 No Route: IV, Me moria (ANES) 6 Drug form: l 19:18: INJ, ONCE, Stop date: 09/01/19 14:18:00 CDT glycopyrrol 2019-0 No Route: IV, Memoria ate (ANES) 08-31 Drug form: l 19:18: INJ, ONCE, Stop date: 09/01/19 14:18:00 CDT neostigmine 2020-0 No Route: IV, Memoria (ANES) 6 Drug form: l 19:18: INJ, ONCE, Stop date: 09/01/19 14:18:00 CDT ePHEDrine 2020-0 No Route: IV, Me moria (ANES) 6- Drug form: l 19:18: INJ, ONCE, Stop date: 09/01/19 14:18:00 CDT glycopyrrol 2020-0 No Route: IV, Memoria ate (ANES) 08-31 Drug form: l 19:18: INJ, ONCE, Stop date: 09/01/19 14:18:00 CDT neostigmine 2020-0 No Route: IV, Memoria (ANES) 6- Drug form: l 19:18: INJ, ONCE, Stop date: 09/01/19 14:18:00 CDT ePHEDrine 2020-0 No Route: IV, Me moria (ANES) 6 Drug form: l 19:18: INJ, ONCE, Stop date: 09/01/19 14:18:00 CDT glycopyrrol 2020-0 No Route: IV, Memoria ate (ANES) 08-31 Drug form: l 19:18: INJ, ONCE, Stop date: 09/01/19 14:18:00 CDT neostigmine 2020-0 No Route: IV, Memoria (ANES) 6- Drug form: l 19:18: INJ, ONCE, Stop date: 09/01/19 14:18:00 CDT ePHEDrine 2020-0 No Route: IV, Me moria (ANES) 6- Drug form: l 19:18: INJ, ONCE, Stop date: 09/01/19 14:18:00 CDT glycopyrrol 2020-0 No Route: IV, Memoria ate (ANES) 6- Drug form: l 19:18: INJ, ONCE, Stop date: 09/01/19 14:18:00 CDT neostigmine 2020-0 No Route: IV, Memoria (ANES) 6- Drug form: l 19:18: INJ, ONCE, Stop date: 09/01/19 14:18:00 CDT ePHEDrine 2020-0 No Route: IV, Me moria (ANES) 6- Drug form: l 19:18: INJ, ONCE, Stop date: 09/01/19 14:18:00 CDT glycopyrrol 2020-0 No Route: IV, Memoria ate (ANES) 6- Drug form: l 19:18: INJ, ONCE, Stop date: 09/01/19 14:18:00 CDT neostigmine 2020-0 No Route: IV, Memoria (ANES) 6- Drug form: l 19:18: INJ, ONCE, Stop date: 09/01/19 14:18:00 CDT ePHEDrine 2020-0 No Route: IV, Me moria (ANES) 6- Drug form: l 19:18: INJ, ONCE, Stop date: 09/01/19 14:18:00 CDT glycopyrrol 2020-0 No Route: IV, Memoria ate (ANES) 6- Drug form: l 19:18: INJ, ONCE, Stop date: 09/01/19 14:18:00 CDT neostigmine 2020-0 No Route: IV, Memoria (ANES) 6- Drug form: l 19:18: INJ, ONCE, Stop date: 09/01/19 14:18:00 CDT ePHEDrine 2020-0 No Route: IV, Me moria (ANES) 6- Drug form: l 19:18: INJ, ONCE, Stop date: 09/01/19 14:18:00 CDT glycopyrrol 2020-0 No Route: IV, Memoria ate (ANES) 6- Drug form: l 19:18: INJ, ONCE, Stop date: 09/01/19 14:18:00 CDT neostigmine 2020-0 No Route: IV, Memoria (ANES) 6-11 Drug form: l 19:18: INJ, ONCE, Stop date: 09/01/19 14:18:00 CDT ePHEDrine 2020-0 No Route: IV, Me moria (ANES) 6-11 Drug form: l 19:18: INJ, ONCE, Stop date: 09/01/19 14:18:00 CDT glycopyrrol 2020-0 No Route: IV, Memoria ate (ANES) 6- Drug form: l 19:18: INJ, ONCE, Stop date: 09/01/19 14:18:00 CDT neostigmine 2020-0 No Route: IV, Memoria (ANES) 6- Drug form: l 19:18: INJ, ONCE, Stop date: 09/01/19 14:18:00 CDT ePHEDrine 2020-0 No Route: IV, Me moria (ANES) 6- Drug form: l 19:18: INJ, ONCE, Stop date: 09/01/19 14:18:00 CDT glycopyrrol 2020-0 No Route: IV, Memoria ate (ANES) 6- Drug form: l 19:18: INJ, ONCE, Stop date: 09/01/19 14:18:00 CDT neostigmine 2020-0 No Route: IV, Memoria (ANES) 6- Drug form: l 19:18: INJ, ONCE, Stop date: 09/01/19 14:18:00 CDT ePHEDrine 2020-0 No Route: IV, Me moria (ANES) 6- Drug form: l 18:09: INJ, ONCE, Stop date: 09/01/19 13:09:00 CDT ePHEDrine 2020-0 No Route: IV, Me moria (ANES) 6- Drug form: l 18:09: INJ, ONCE, Stop date: 09/01/19 13:09:00 CDT ePHEDrine 2020-0 No Route: IV, Me moria (ANES) 6- Drug form: l 18:09: INJ, ONCE, Stop date: 09/01/19 13:09:00 CDT ePHEDrine 2020-0 No Route: IV, Me moria (ANES) 6-11 Drug form: l 18:09: INJ, ONCE, Stop date: 09/01/19 13:09:00 CDT ePHEDrine 2020-0 No Route: IV, Me moria (ANES) 6- Drug form: l 18:09: INJ, ONCE, Stop date: 09/01/19 13:09:00 CDT ePHEDrine 2020-0 No Route: IV, Me moria (ANES) 6-11 Drug form: l 18:09: INJ, ONCE, Stop date: 09/01/19 13:09:00 CDT ePHEDrine 2020-0 No Route: IV, Me moria (ANES) 6- Drug form: l 18:09: INJ, ONCE, Stop date: 09/01/19 13:09:00 CDT ePHEDrine 2020-0 No Route: IV, Me moria (ANES) 6- Drug form: l 18:09: INJ, ONCE, Stop date: 09/01/19 13:09:00 CDT ePHEDrine 2020-0 No Route: IV, Me moria (ANES) 6- Drug form: l 18:09: INJ, ONCE, Stop date: 09/01/19 13:09:00 CDT ePHEDrine 2020-0 No Route: IV, Me moria (ANES) 6- Drug form: l 18:09: INJ, ONCE, Stop date: 09/01/19 13:09:00 CDT ceFAZolin 2020-0 No Route: IV, Me moria (ANES) 6- Drug form: l 17:58: INJ, ONCE, Stop date: 09/01/19 12:58:00 CDT dexamethaso 2020-0 No Route: IV, Memoria ne (ANES) 6- Drug form: l 17:58: INJ, ONCE, Stop date: 09/01/19 12:58:00 CDT ceFAZolin 2020-0 No Route: IV, Me moria (ANES) 6- Drug form: l 17:58: INJ, ONCE, Stop date: 09/01/19 12:58:00 CDT dexamethaso 2020-0 No Route: IV, Memoria ne (ANES) 6- Drug form: l 17:58: INJ, ONCE, Stop date: 09/01/19 12:58:00 CDT ceFAZolin 2020-0 No Route: IV, Me moria (ANES) 6- Drug form: l 17:58: INJ, ONCE, Stop date: 09/01/19 12:58:00 CDT dexamethaso 2020-0 No Route: IV, Memoria ne (ANES) 6- Drug form: l 17:58: INJ, ONCE, Stop date: 09/01/19 12:58:00 CDT ceFAZolin 2020-0 No Route: IV, Me moria (ANES) 6- Drug form: l 17:58: INJ, ONCE, Stop date: 09/01/19 12:58:00 CDT dexamethaso 2020-0 No Route: IV, Memoria ne (ANES) 6- Drug form: l 17:58: INJ, ONCE, Stop date: 09/01/19 12:58:00 CDT ceFAZolin 2020-0 No Route: IV, Me moria (ANES) 6- Drug form: l 17:58: INJ, ONCE, Stop date: 09/01/19 12:58:00 CDT dexamethaso 2020-0 No Route: IV, Memoria ne (ANES) 6- Drug form: l 17:58: INJ, ONCE, Stop date: 09/01/19 12:58:00 CDT ceFAZolin 2020-0 No Route: IV, Me moria (ANES) 6- Drug form: l 17:58: INJ, ONCE, Stop date: 09/01/19 12:58:00 CDT dexamethaso 2020-0 No Route: IV, Memoria ne (ANES) 6- Drug form: l 17:58: INJ, ONCE, Stop date: 09/01/19 12:58:00 CDT ceFAZolin 2020-0 No Route: IV, Me moria (ANES) 6- Drug form: l 17:58: INJ, ONCE, Stop date: 09/01/19 12:58:00 CDT dexamethaso 2020-0 No Route: IV, Memoria ne (ANES) 6- Drug form: l 17:58: INJ, ONCE, Stop date: 09/01/19 12:58:00 CDT ceFAZolin 2020-0 No Route: IV, Me moria (ANES) 6- Drug form: l 17:58: INJ, ONCE, Stop date: 09/01/19 12:58:00 CDT dexamethaso 2020-0 No Route: IV, Memoria ne (ANES) 6- Drug form: l 17:58: INJ, ONCE, Stop date: 09/01/19 12:58:00 CDT ceFAZolin 2020-0 No Route: IV, Me moria (ANES) 6- Drug form: l 17:58: INJ, ONCE, Stop date: 09/01/19 12:58:00 CDT dexamethaso 2020-0 No Route: IV, Memoria ne (ANES) 6- Drug form: l 17:58: INJ, ONCE, Stop date: 09/01/19 12:58:00 CDT ceFAZolin 2020-0 No Route: IV, Me moria (ANES) 6 Drug form: l 17:58: INJ, ONCE, Stop date: 09/01/19 12:58:00 CDT dexamethaso 2020-0 No Route: IV, Memoria ne (ANES) 08-31 Drug form: l 17:58: INJ, ONCE, Stop date: 09/01/19 12:58:00 CDT famotidine 2020-0 No Route: IV, M emoria (ANES) 08-31 Drug form: l 17:53: INJ, ONCE, Stop date: 09/01/19 12:53:00 CDT famotidine 2020-0 No Route: IV, M emoria (ANES) 6- Drug form: l 17:53: INJ, ONCE, Stop date: 09/01/19 12:53:00 CDT famotidine 2020-0 No Route: IV, M emoria (ANES) 6- Drug form: l 17:53: INJ, ONCE, Stop date: 09/01/19 12:53:00 CDT famotidine 2020-0 No Route: IV, M emoria (ANES) 6- Drug form: l 17:53: INJ, ONCE, Stop date: 09/01/19 12:53:00 CDT famotidine 2020-0 No Route: IV, M emoria (ANES) 6- Drug form: l 17:53: INJ, ONCE, Stop date: 09/01/19 12:53:00 CDT famotidine 2020-0 No Route: IV, M emoria (ANES) 6- Drug form: l 17:53: INJ, ONCE, Stop date: 09/01/19 12:53:00 CDT famotidine 2020-0 No Route: IV, M emoria (ANES) 6- Drug form: l 17:53: INJ, ONCE, Stop date: 09/01/19 12:53:00 CDT famotidine 2020-0 No Route: IV, M emoria (ANES) 6- Drug form: l 17:53: INJ, ONCE, Stop date: 09/01/19 12:53:00 CDT famotidine 2020-0 No Route: IV, M emoria (ANES) 6- Drug form: l 17:53: INJ, ONCE, Stop date: 09/01/19 12:53:00 CDT famotidine 2020-0 No Route: IV, M emoria (ANES) 6- Drug form: l 17:53: INJ, ONCE, Stop date: 09/01/19 12:53:00 CDT fentaNYL 2020-0 No Route: IV, Mem oria (ANES) 6- Drug form: l 17:48: INJ, ONCE, Stop date: 09/01/19 12:48:00 CDT lidocaine 2020-0 No Route: IV, Me moria (ANES) 08-31 Drug form: l 17:48: INJ, ONCE, Stop date: 09/01/19 12:48:00 CDT propofol 2020-0 No Route: IV, Mem oria (ANES) 6- Drug form: l 17:48: INJ, ONCE, Stop date: 09/01/19 12:48:00 CDT rocuronium 2020-0 No Route: IV, M emoria (ANES) 6- Drug form: l 17:48: INJ, ONCE, Stop date: 09/01/19 12:48:00 CDT succinylcho 2020-0 No Route: IV, Memoria line (ANES) 08-31 Drug form: l 17:48: INJ, ONCE, Stop date: 09/01/19 12:48:00 CDT fentaNYL 2020-0 No Route: IV, Mem oria (ANES) 08-31 Drug form: l 17:48: INJ, ONCE, Stop date: 09/01/19 12:48:00 CDT lidocaine 2020-0 No Route: IV, Me moria (ANES) - Drug form: l 17:48: INJ, ONCE, Stop date: 09/01/19 12:48:00 CDT propofol 2020-0 No Route: IV, Mem oria (ANES) - Drug form: l 17:48: INJ, ONCE, Stop date: 09/01/19 12:48:00 CDT rocuronium 2020-0 No Route: IV, M emoria (ANES) 08-31 Drug form: l 17:48: INJ, ONCE, Stop date: 09/01/19 12:48:00 CDT succinylcho 2020-0 No Route: IV, Memoria line (ANES) - Drug form: l 17:48: INJ, ONCE, Stop date: 09/01/19 12:48:00 CDT fentaNYL 2020-0 No Route: IV, Mem oria (ANES) - Drug form: l 17:48: INJ, ONCE, Stop date: 09/01/19 12:48:00 CDT lidocaine 2020-0 No Route: IV, Me moria (ANES) - Drug form: l 17:48: INJ, ONCE, Stop date: 09/01/19 12:48:00 CDT propofol 2020-0 No Route: IV, Mem oria (ANES) 6- Drug form: l 17:48: INJ, ONCE, Stop date: 09/01/19 12:48:00 CDT rocuronium 2020-0 No Route: IV, M emoria (ANES) 6- Drug form: l 17:48: INJ, ONCE, Stop date: 09/01/19 12:48:00 CDT succinylcho 2020-0 No Route: IV, Memoria line (ANES) 08-31 Drug form: l 17:48: INJ, ONCE, Stop date: 09/01/19 12:48:00 CDT fentaNYL 2020-0 No Route: IV, Mem oria (ANES) 08-31 Drug form: l 17:48: INJ, ONCE, Stop date: 09/01/19 12:48:00 CDT lidocaine 2020-0 No Route: IV, Me moria (ANES) - Drug form: l 17:48: INJ, ONCE, Stop date: 09/01/19 12:48:00 CDT propofol 2020-0 No Route: IV, Mem oria (ANES) - Drug form: l 17:48: INJ, ONCE, Stop date: 09/01/19 12:48:00 CDT rocuronium 2020-0 No Route: IV, M emoria (ANES) 08-31 Drug form: l 17:48: INJ, ONCE, Stop date: 09/01/19 12:48:00 CDT succinylcho 2020-0 No Route: IV, Memoria line (ANES) - Drug form: l 17:48: INJ, ONCE, Stop date: 09/01/19 12:48:00 CDT fentaNYL 2020-0 No Route: IV, Mem oria (ANES) - Drug form: l 17:48: INJ, ONCE, Stop date: 09/01/19 12:48:00 CDT lidocaine 2020-0 No Route: IV, Me moria (ANES) - Drug form: l 17:48: INJ, ONCE, Stop date: 09/01/19 12:48:00 CDT propofol 2020-0 No Route: IV, Mem oria (ANES) 6- Drug form: l 17:48: INJ, ONCE, Stop date: 09/01/19 12:48:00 CDT rocuronium 2020-0 No Route: IV, M emoria (ANES) 6- Drug form: l 17:48: INJ, ONCE, Stop date: 09/01/19 12:48:00 CDT succinylcho 2020-0 No Route: IV, Memoria line (ANES) 08-31 Drug form: l 17:48: INJ, ONCE, Stop date: 09/01/19 12:48:00 CDT fentaNYL 2020-0 No Route: IV, Mem oria (ANES) 08-31 Drug form: l 17:48: INJ, ONCE, Stop date: 09/01/19 12:48:00 CDT lidocaine 2020-0 No Route: IV, Me moria (ANES) - Drug form: l 17:48: INJ, ONCE, Stop date: 09/01/19 12:48:00 CDT propofol 2020-0 No Route: IV, Mem oria (ANES) - Drug form: l 17:48: INJ, ONCE, Stop date: 09/01/19 12:48:00 CDT rocuronium 2020-0 No Route: IV, M emoria (ANES) 08-31 Drug form: l 17:48: INJ, ONCE, Stop date: 09/01/19 12:48:00 CDT succinylcho 2020-0 No Route: IV, Memoria line (ANES) - Drug form: l 17:48: INJ, ONCE, Stop date: 09/01/19 12:48:00 CDT fentaNYL 2020-0 No Route: IV, Mem oria (ANES) - Drug form: l 17:48: INJ, ONCE, Stop date: 09/01/19 12:48:00 CDT lidocaine 2020-0 No Route: IV, Me moria (ANES) - Drug form: l 17:48: INJ, ONCE, Stop date: 09/01/19 12:48:00 CDT propofol 2020-0 No Route: IV, Mem oria (ANES) 6- Drug form: l 17:48: INJ, ONCE, Stop date: 09/01/19 12:48:00 CDT rocuronium 2020-0 No Route: IV, M emoria (ANES) 6- Drug form: l 17:48: INJ, ONCE, Stop date: 09/01/19 12:48:00 CDT succinylcho 2020-0 No Route: IV, Memoria line (ANES) 08-31 Drug form: l 17:48: INJ, ONCE, Stop date: 09/01/19 12:48:00 CDT fentaNYL 2020-0 No Route: IV, Mem oria (ANES) 08-31 Drug form: l 17:48: INJ, ONCE, Stop date: 09/01/19 12:48:00 CDT lidocaine 2020-0 No Route: IV, Me moria (ANES) - Drug form: l 17:48: INJ, ONCE, Stop date: 09/01/19 12:48:00 CDT propofol 2020-0 No Route: IV, Mem oria (ANES) - Drug form: l 17:48: INJ, ONCE, Stop date: 09/01/19 12:48:00 CDT rocuronium 2020-0 No Route: IV, M emoria (ANES) 08-31 Drug form: l 17:48: INJ, ONCE, Stop date: 09/01/19 12:48:00 CDT succinylcho 2020-0 No Route: IV, Memoria line (ANES) - Drug form: l 17:48: INJ, ONCE, Stop date: 09/01/19 12:48:00 CDT fentaNYL 2020-0 No Route: IV, Mem oria (ANES) - Drug form: l 17:48: INJ, ONCE, Stop date: 09/01/19 12:48:00 CDT lidocaine 2020-0 No Route: IV, Me moria (ANES) - Drug form: l 17:48: INJ, ONCE, Stop date: 09/01/19 12:48:00 CDT propofol 2020-0 No Route: IV, Mem oria (ANES) 6- Drug form: l 17:48: INJ, ONCE, Stop date: 09/01/19 12:48:00 CDT rocuronium 2020-0 No Route: IV, M emoria (ANES) 6- Drug form: l 17:48: INJ, ONCE, Stop date: 09/01/19 12:48:00 CDT succinylcho 2020-0 No Route: IV, Memoria line (ANES) 08-31 Drug form: l 17:48: INJ, ONCE, Stop date: 09/01/19 12:48:00 CDT fentaNYL 2020-0 No Route: IV, Mem oria (ANES) 08-31 Drug form: l 17:48: INJ, ONCE, Stop date: 09/01/19 12:48:00 CDT lidocaine 2020-0 No Route: IV, Me moria (ANES) 08-31 Drug form: l 17:48: INJ, ONCE, Stop date: 09/01/19 12:48:00 CDT propofol 2020-0 No Route: IV, Mem oria (ANES) 08-31 Drug form: l 17:48: INJ, ONCE, Stop date: 09/01/19 12:48:00 CDT rocuronium 2020-0 No Route: IV, M emoria (ANES) 08-31 Drug form: l 17:48: INJ, ONCE, Stop date: 09/01/19 12:48:00 CDT succinylcho 2020-0 No Route: IV, Memoria line (ANES) 08-31 Drug form: l 17:48: INJ, ONCE, Stop date: 09/01/19 12:48:00 CDT Exparel 2020-0 No Notes: Memoria -11 (Same as: l 17:29: Exparel) NOT FOR IV use Postoperat mirela analgesia: Infiltrati on (local): Dose is based on surgical site and volume required to cover the area (in general, the maximum total dose is 266 mg). Bunionecto my: 7 mL into the tissues surroundin g the osteotomy and 1 mL into the subcutaneo us tissue of the surgical site (total dose = 8 mL [106 mg]) Hemorrhoid ectomy: 30 mL (20 mL vial diluted with 10 mL NS) divided and administer ed as 6 injections of 5 mL each (total dose = 30 mL [266 mg]) Interscale ne brachial plexus nerve block: Single dose: Total shoulder arthroplas ty or rotator cuff repair: 133 mg (10 mL) Exparel 2020-0 No Notes: Memoria 08-31 (Same as: l 17:29: Exparel) Ben 00 NOT FOR IV use Postoperat mirela analgesia: Infiltrati on (local): Dose is based on surgical site and volume required to cover the area (in general, the maximum total dose is 266 mg). Bunionecto my: 7 mL into the tissues surroundin g the osteotomy and 1 mL into the subcutaneo us tissue of the surgical site (total dose = 8 mL [106 mg]) Hemorrhoid ectomy: 30 mL (20 mL vial diluted with 10 mL NS) divided and administer ed as 6 injections of 5 mL each (total dose = 30 mL [266 mg]) Interscale ne brachial plexus nerve block: Single dose: Total shoulder arthroplas ty or rotator cuff repair: 133 mg (10 mL) Exparel 2019-0 No Notes: Memoria 08-31 (Same as: l 17:29: Exparel) Ben 00 NOT FOR IV use Postoperat mirela analgesia: Infiltrati on (local): Dose is based on surgical site and volume required to cover the area (in general, the maximum total dose is 266 mg). Bunionecto my: 7 mL into the tissues surroundin g the osteotomy and 1 mL into the subcutaneo us tissue of the surgical site (total dose = 8 mL [106 mg]) Hemorrhoid ectomy: 30 mL (20 mL vial diluted with 10 mL NS) divided and administer ed as 6 injections of 5 mL each (total dose = 30 mL [266 mg]) Interscale ne brachial plexus nerve block: Single dose: Total shoulder arthroplas ty or rotator cuff repair: 133 mg (10 mL) Exparel 2019-0 No Notes: Memoria 08-31 (Same as: l 17:29: Exparel) Ben 00 NOT FOR IV use Postoperat mirela analgesia: Infiltrati on (local): Dose is based on surgical site and volume required to cover the area (in general, the maximum total dose is 266 mg). Bunionecto my: 7 mL into the tissues surroundin g the osteotomy and 1 mL into the subcutaneo us tissue of the surgical site (total dose = 8 mL [106 mg]) Hemorrhoid ectomy: 30 mL (20 mL vial diluted with 10 mL NS) divided and administer ed as 6 injections of 5 mL each (total dose = 30 mL [266 mg]) Interscale ne brachial plexus nerve block: Single dose: Total shoulder arthroplas ty or rotator cuff repair: 133 mg (10 mL) Exparel 2020-0 No Notes: Memoria 6 (Same as: l 17:29: Exparel) Ben 00 NOT FOR IV use Postoperat mirela analgesia: Infiltrati on (local): Dose is based on surgical site and volume required to cover the area (in general, the maximum total dose is 266 mg). Bunionecto my: 7 mL into the tissues surroundin g the osteotomy and 1 mL into the subcutaneo us tissue of the surgical site (total dose = 8 mL [106 mg]) Hemorrhoid ectomy: 30 mL (20 mL vial diluted with 10 mL NS) divided and administer ed as 6 injections of 5 mL each (total dose = 30 mL [266 mg]) Interscale ne brachial plexus nerve block: Single dose: Total shoulder arthroplas ty or rotator cuff repair: 133 mg (10 mL) Exparel 2019-0 No Notes: Shaniqueoria 08-31 (Same as: l 17:29: Exparel) Ben 00 NOT FOR IV use Postoperat mirela analgesia: Infiltrati on (local): Dose is based on surgical site and volume required to cover the area (in general, the maximum total dose is 266 mg). Bunionecto my: 7 mL into the tissues surroundin g the osteotomy and 1 mL into the subcutaneo us tissue of the surgical site (total dose = 8 mL [106 mg]) Hemorrhoid ectomy: 30 mL (20 mL vial diluted with 10 mL NS) divided and administer ed as 6 injections of 5 mL each (total dose = 30 mL [266 mg]) Interscale ne brachial plexus nerve block: Single dose: Total shoulder arthroplas ty or rotator cuff repair: 133 mg (10 mL) Exparel 2020-0 No Notes: Memoria 6 (Same as: l 17:29: Exparel) Ben 00 NOT FOR IV use Postoperat mirela analgesia: Infiltrati on (local): Dose is based on surgical site and volume required to cover the area (in general, the maximum total dose is 266 mg). Bunionecto my: 7 mL into the tissues surroundin g the osteotomy and 1 mL into the subcutaneo us tissue of the surgical site (total dose = 8 mL [106 mg]) Hemorrhoid ectomy: 30 mL (20 mL vial diluted with 10 mL NS) divided and administer ed as 6 injections of 5 mL each (total dose = 30 mL [266 mg]) Interscale ne brachial plexus nerve block: Single dose: Total shoulder arthroplas ty or rotator cuff repair: 133 mg (10 mL) Exparel 2020-0 No Notes: [facility] 08-31 (Same as: l 17:29: Exparel) Ben 00 NOT FOR IV use Postoperat mirela analgesia: Infiltrati on (local): Dose is based on surgical site and volume required to cover the area (in general, the maximum total dose is 266 mg). Bunionecto my: 7 mL into the tissues surroundin g the osteotomy and 1 mL into the subcutaneo us tissue of the surgical site (total dose = 8 mL [106 mg]) Hemorrhoid ectomy: 30 mL (20 mL vial diluted with 10 mL NS) divided and administer ed as 6 injections of 5 mL each (total dose = 30 mL [266 mg]) Interscale ne brachial plexus nerve block: Single dose: Total shoulder arthroplas ty or rotator cuff repair: 133 mg (10 mL) Exparel 2020-0 No Notes: [facility]08-[facility] (Same as: l 17:29: Exparel) [place] 00 NOT FOR IV use Postoperat mirela analgesia: Infiltrati on (local): Dose is based on surgical site and volume required to cover the area (in general, the maximum total dose is 266 mg). Bunionecto my: 7 mL into the tissues surroundin g the osteotomy and 1 mL into the subcutaneo us tissue of the surgical site (total dose = 8 mL [106 mg]) Hemorrhoid ectomy: 30 mL (20 mL vial diluted with 10 mL NS) divided and administer ed as 6 injections of 5 mL each (total dose = 30 mL [266 mg]) Interscale ne brachial plexus nerve block: Single dose: Total shoulder arthroplas ty or rotator cuff repair: 133 mg (10 mL) Exparel 2020-0 No Notes: Memoria 6-11 (Same as: l 17:29: Exparel) Ben 00 NOT FOR IV use Postoperat mirela analgesia: Infiltrati on (local): Dose is based on surgical site and volume required to cover the area (in general, the maximum total dose is 266 mg). Bunionecto my: 7 mL into the tissues surroundin g the osteotomy and 1 mL into the subcutaneo us tissue of the surgical site (total dose = 8 mL [106 mg]) Hemorrhoid ectomy: 30 mL (20 mL vial diluted with 10 mL NS) divided and administer ed as 6 injections of 5 mL each (total dose = 30 mL [266 mg]) Interscale ne brachial plexus nerve block: Single dose: Total shoulder arthroplas ty or rotator cuff repair: 133 mg (10 mL) Hydralazine 2019-0 No Notes: Abraham joana 6-11 (Same as: l 17:22: Apresoline ) Push over 5 minutes Morphine 2019-0 No Notes: Memoria 6-11 (Same l 17:22: as:MORPhin [place] 00 e Sulfate) Hydromorpho 2019-0 No Notes: Abraham joana ne 6- Same as l 17:22: Dilaudid Flumazenil 2019-0 No Notes: Memor ia 6- (Same as: l 17:22: Romazicon) Naloxone 2019-0 No Notes: Memoria 6-11 Same as l 17:22: Narcan Albuterol 2019-0 No Notes: SEE Me moria 0.83 MG/ML 6-11 RT l Inhalant 17:22: DOCUMENTAT Her josé Solution 00 ION (Same as: Proventil) Ondansetron 2019-0 No Notes: Abraham joana 6-11 (Same as: l 17:22: Zofran) [place] 00 MEDICATION WASTE Product Size: 4 mg Product Wasted: ___ mg Promethazin 2020-0 No Notes: Do M emoria e 6-11 not give l 17:22: IV push. Ben 00 (Same as: Phenergan) Hydralazine 2019-0 No Notes: Abraham joana 6-11 (Same as: l 17:22: Apresoline Ben 00 ) Push over 5 minutes Morphine 2020-0 No Notes: Memoria 6-11 (Same l 17:22: as:MORPhin Ben 00 e Sulfate) Hydromorpho 2020-0 No Notes: Abraham joana ne 6-11 Same as l 17:22: Dilaudid Ben 00 Flumazenil 2020-0 No Notes: Memor ia 6-11 (Same as: l 17:22: Romazicon) [place] 00 Naloxone 2020-0 No Notes: Memoria 6-11 Same as l 17:22: Narcan Ben 00 Albuterol 2020-0 No Notes: SEE Me moria 0.83 MG/ML 6-11 RT l Inhalant 17:22: DOCUMENTAT Her josé Solution 00 ION (Same as: Proventil) Ondansetron 2020-0 No Notes: Abraham joana 6-11 (Same as: l 17:22: Zofran) [place] 00 MEDICATION WASTE Product Size: 4 mg Product Wasted: ___ mg Promethazin 2020-0 No Notes: Do M emoria e 6-11 not give l 17:22: IV push. Ben 00 (Same as: Phenergan) Hydralazine 2020-0 No Notes: Abraham joana 6-11 (Same as: l 17:22: Apresoline Ben 00 ) Push over 5 minutes Morphine 2020-0 No Notes: Memoria 6-11 (Same l 17:22: as:MORPhin [place] 00 e Sulfate) Hydromorpho 2020-0 No Notes: Abraham joana ne 6-11 Same as l 17:22: Dilaudid [place] 00 Flumazenil 2020-0 No Notes: Memor ia 6-11 (Same as: l 17:22: Romazicon) [place] 00 Naloxone 2020-0 No Notes: Memoria 6-11 Same as l 17:22: Narcan [place] 00 Albuterol 2020-0 No Notes: SEE Me moria 0.83 MG/ML 6-11 RT l Inhalant 17:22: DOCUMENTAT Her josé Solution 00 ION (Same as: Proventil) Ondansetron 2020-0 No Notes: Abraham joana 6-11 (Same as: l 17:22: Zofran) Ben 00 MEDICATION WASTE Product Size: 4 mg Product Wasted: ___ mg Promethazin 2020-0 No Notes: Do M emoria e 6-11 not give l 17:22: IV push. [place] 00 (Same as: Phenergan) Hydralazine 2019-0 No Notes: Abraham joana 6-11 (Same as: l 17:22: Apresoline Ben 00 ) Push over 5 minutes Morphine 2019-0 No Notes: Memoria 6-11 (Same l 17:22: as:MORPhin Ben 00 e Sulfate) Hydromorpho 2019-0 No Notes: Abraham jaona ne 6-11 Same as l 17:22: Dilaudid Ben Flumazenil 2019-0 No Notes: Memor ia 6-11 (Same as: l 17:22: Romazicon) Ben 00 Naloxone 2019-0 No Notes: Memoria 6-11 Same as l 17:22: Narcan Ben Albuterol 2019-0 No Notes: SEE Me moria 0.83 MG/ML 6-11 RT l Inhalant 17:22: DOCUMENTAT Her josé Solution 00 ION (Same as: Proventil) Ondansetron 2019-0 No Notes: Abraham joana 6-11 (Same as: l 17:22: Zofran) [place] 00 MEDICATION WASTE Product Size: 4 mg Product Wasted: ___ mg Promethazin 2020-0 No Notes: Do M emoria e 6-11 not give l 17:22: IV push. [place] 00 (Same as: Phenergan) Hydralazine 2019-0 No Notes: Abraham joana 6-11 (Same as: l 17:22: Apresoline [place] 00 ) Push over 5 minutes Morphine 2019-0 No Notes: Memoria 6-11 (Same l 17:22: as:MORPhin Ben 00 e Sulfate) Hydromorpho 2019-0 No Notes: Abraham joana ne 6-11 Same as l 17:22: Dilaudid [place] 00 Flumazenil 2019-0 No Notes: Memor ia 6-11 (Same as: l 17:22: Romazicon) [place] Naloxone 2019-0 No Notes: Memoria 6-11 Same as l 17:22: Narcan [place] 00 Albuterol 2020-0 No Notes: SEE Me moria 0.83 MG/ML 6-11 RT l Inhalant 17:22: DOCUMENTAT Her josé Solution 00 ION (Same as: Proventil) Ondansetron 2020-0 No Notes: Abraham joana 6-11 (Same as: l 17:22: Zofran) Ben 00 MEDICATION WASTE Product Size: 4 mg Product Wasted: ___ mg Promethazin 2020-0 No Notes: Do M emoria e 6-11 not give l 17:22: IV push. Ebn 00 (Same as: Phenergan) Hydralazine 2020-0 No Notes: Abraham joana 6-11 (Same as: l 17:22: Apresoline [place] ) Push over 5 minutes Morphine 2020-0 No Notes: Memoria 6-11 (Same l 17:22: as:MORPhin Ben 00 e Sulfate) Hydromorpho 2020-0 No Notes: Abraham joana ne 6-11 Same as l 17:22: Dilaudid [place] 00 Flumazenil 2020-0 No Notes: Memor ia 6-11 (Same as: l 17:22: Romazicon) Ben 00 Naloxone 2020-0 No Notes: Memoria 6-11 Same as l 17:22: Narcan [place] Albuterol 2020-0 No Notes: SEE Me moria 0.83 MG/ML 6-11 RT l Inhalant 17:22: DOCUMENTAT Her josé Solution 00 ION (Same as: Proventil) Ondansetron 2020-0 No Notes: Abraham joana 6-11 (Same as: l 17:22: Zofran) Ben 00 MEDICATION WASTE Product Size: 4 mg Product Wasted: ___ mg Promethazin 2020-0 No Notes: Do M emoria e 6-11 not give l 17:22: IV push. Ben 00 (Same as: Phenergan) Hydralazine 2020-0 No Notes: Abraham joana 6-11 (Same as: l 17:22: Apresoline [place] 00 ) Push over 5 minutes Morphine 2020-0 No Notes: Memoria 6-11 (Same l 17:22: as:MORPhin Ben 00 e Sulfate) Hydromorpho 2020-0 No Notes: Abraham joana ne 6-11 Same as l 17:22: Dilaudid Ben 00 Flumazenil 2020-0 No Notes: Memor ia 6-11 (Same as: l 17:22: Romazicon) Ben 00 Naloxone 2020-0 No Notes: Memoria 6-11 Same as l 17:22: Narcan Ben 00 Albuterol 2020-0 No Notes: SEE Me moria 0.83 MG/ML 6-11 RT l Inhalant 17:22: DOCUMENTAT Her josé Solution 00 ION (Same as: Proventil) Ondansetron 2020-0 No Notes: Abraham joana 6-11 (Same as: l 17:22: Zofran) [place] 00 MEDICATION WASTE Product Size: 4 mg Product Wasted: ___ mg Promethazin 2020-0 No Notes: Do M emoria e 6-11 not give l 17:22: IV push. [place] 00 (Same as: Phenergan) Hydralazine 2020-0 No Notes: Abraham joana 6-11 (Same as: l 17:22: Apresoline Ben 00 ) Push over 5 minutes Morphine 2020-0 No Notes: Memoria 6-11 (Same l 17:22: as:MORPhin Ben 00 e Sulfate) Hydromorpho 2020-0 No Notes: Abraham joana ne 6-11 Same as l 17:22: Dilaudid [place] 00 Flumazenil 2020-0 No Notes: Memor ia 6-11 (Same as: l 17:22: Romazicon) Ben 00 Naloxone 2020-0 No Notes: Memoria 6-11 Same as l 17:22: Narcan Ben 00 Albuterol 2020-0 No Notes: SEE Me moria 0.83 MG/ML 6-11 RT l Inhalant 17:22: DOCUMENTAT Her josé Solution 00 ION (Same as: Proventil) Ondansetron 2020-0 No Notes: Abraham joana 6-11 (Same as: l 17:22: Zofran) [place] 00 MEDICATION WASTE Product Size: 4 mg Product Wasted: ___ mg Promethazin 2020-0 No Notes: Do M emoria e 6-11 not give l 17:22: IV push. Ben 00 (Same as: Phenergan) Hydralazine 2020-0 No Notes: Abraham joana 6-11 (Same as: l 17:22: Apresoline [place] 00 ) Push over 5 minutes Morphine 2020-0 No Notes: Memoria 6-11 (Same l 17:22: as:MORPhin Ben 00 e Sulfate) Hydromorpho 2020-0 No Notes: Abraham joana ne 6-11 Same as l 17:22: Dilaudid Ben 00 Flumazenil 2020-0 No Notes: Memor ia 6-11 (Same as: l 17:22: Romazicon) Ben 00 Naloxone 2020-0 No Notes: Memoria 6-11 Same as l 17:22: Narcan [place] 00 Albuterol 2020-0 No Notes: SEE Me moria 0.83 MG/ML 6-11 RT l Inhalant 17:22: DOCUMENTAT Her josé Solution 00 ION (Same as: Proventil) Ondansetron 2020-0 No Notes: Abraham joana 6-11 (Same as: l 17:22: Zofran) Ben 00 MEDICATION WASTE Product Size: 4 mg Product Wasted: ___ mg Promethazin 2020-0 No Notes: Do M emoria e 6-11 not give l 17:22: IV push. [place] 00 (Same as: Phenergan) Hydralazine 2019-0 No Notes: Abraham joana 6-11 (Same as: l 17:22: Apresoline Ben 00 ) Push over 5 minutes Morphine 2020-0 No Notes: Memoria 6-11 (Same l 17:22: as:MORPhin Ben 00 e Sulfate) Hydromorpho 2020-0 No Notes: Abraham joana ne 6-11 Same as l 17:22: Dilaudid Ben 00 Flumazenil 2020-0 No Notes: Memor ia 6-11 (Same as: l 17:22: Romazicon) [place] 00 Naloxone 2020-0 No Notes: Memoria 6-11 Same as l 17:22: Narcan Ben 00 Albuterol 2020-0 No Notes: SEE Me moria 0.83 MG/ML 6-11 RT l Inhalant 17:22: DOCUMENTAT Her josé Solution 00 ION (Same as: Proventil) Ondansetron 2020-0 No Notes: Abraham joana 6-11 (Same as: l 17:22: Zofran) MEDICATION WASTE Product Size: 4 mg Product Wasted: ___ mg Promethazin 2020-0 No Notes: Do M chantell e 6-11 not give l 17:22: IV push. (Same as: Phenergan) Lactated 2020-0 No Route: IV, Mem oria Ringers 6-11 Total l Injection 16:46: Volume: Tamela nn IV (ANES) 00 1,000, 1000 mL Start date: 09/01/19 11:46:00 CDT, Stop date: 09/01/19 12:46:00 CDT Lactated 2020-0 No Route: IV, Mem oria Ringers 6-11 Total l Injection 16:46: Volume: Tamela nn IV (ANES) 00 1,000, 1000 mL Start date: 09/01/19 11:46:00 CDT, Stop date: 09/01/19 12:46:00 CDT Lactated 2020-0 No Route: IV, Mem oria Ringers 6-11 Total l Injection 16:46: Volume: Tamela nn IV (ANES) 00 1,000, 1000 mL Start date: 09/01/19 11:46:00 CDT, Stop date: 09/01/19 12:46:00 CDT Lactated 2020-0 No Route: IV, Mem oria Ringers 6-11 Total l Injection 16:46: Volume: Tamela nn IV (ANES) 00 1,000, 1000 mL Start date: 09/01/19 11:46:00 CDT, Stop date: 09/01/19 12:46:00 CDT Lactated 2020-0 No Route: IV, Mem oria Ringers 6-11 Total l Injection 16:46: Volume: Tamela nn IV (ANES) 00 1,000, 1000 mL Start date: 09/01/19 11:46:00 CDT, Stop date: 09/01/19 12:46:00 CDT Lactated 2020-0 No Route: IV, Mem oria Ringers 6-11 Total l Injection 16:46: Volume: Tamela nn IV (ANES) 00 1,000, 1000 mL Start date: 09/01/19 11:46:00 CDT, Stop date: 09/01/19 12:46:00 CDT Lactated 2020-0 No Route: IV, Mem oria Ringers 6-11 Total l Injection 16:46: Volume: Tamela nn IV (ANES) 00 1,000, 1000 mL Start date: 09/01/19 11:46:00 CDT, Stop date: 09/01/19 12:46:00 CDT Lactated 2020-0 No Route: IV, Mem oria Ringers 6-11 Total l Injection 16:46: Volume: Tamela nn IV (ANES) 00 1,000, 1000 mL Start date: 09/01/19 11:46:00 CDT, Stop date: 09/01/19 12:46:00 CDT Lactated 2020-0 No Route: IV, Mem oria Ringers 6-11 Total l Injection 16:46: Volume: Tamela nn IV (ANES) 00 1,000, 1000 mL Start date: 09/01/19 11:46:00 CDT, Stop date: 09/01/19 12:46:00 CDT Lactated 2020-0 No Route: IV, Mem oria Ringers 6-11 Total l Injection 16:46: Volume: Tamela nn IV (ANES) 00 1,000, 1000 mL Start date: 09/01/19 11:46:00 CDT, Stop date: 09/01/19 12:46:00 CDT ceFAZolin + 2020-0 No Notes: Abraham joana sterile 6-11 (Same As: l water 20 mL 06:00: Ancef, Herm kendra 00 Kefzol) MEDICATION WASTE Product Size: 1000 mg Product Wasted: ___ mg ceFAZolin + 2020-0 No Notes: Abraham joana sterile 6-11 (Same As: l water 20 mL 06:00: Ancef, Herm kendra 00 Kefzol) MEDICATION WASTE Product Size: 1000 mg Product Wasted: ___ mg ceFAZolin + 2020-0 No Notes: Abraham joana sterile 6-11 (Same As: l water 20 mL 06:00: Ancef, Herm kendra 00 Kefzol) MEDICATION WASTE Product Size: 1000 mg Product Wasted: ___ mg ceFAZolin + 2020-0 No Notes: Abraham joana sterile 6-11 (Same As: l water 20 mL 06:00: Ancef, Herm kendra 00 Kefzol) MEDICATION WASTE Product Size: 1000 mg Product Wasted: ___ mg ceFAZolin + 2020-0 No Notes: Abraham joana sterile 6-11 (Same As: l water 20 mL 06:00: Ancef, Herm kendra 00 Kefzol) MEDICATION WASTE Product Size: 1000 mg Product Wasted: ___ mg ceFAZolin + 2020-0 No Notes: Abraham joana sterile 6-11 (Same As: l water 20 mL 06:00: Ancef, Herm kendra 00 Kefzol) MEDICATION WASTE Product Size: 1000 mg Product Wasted: ___ mg ceFAZolin + 2020-0 No Notes: Abraham joana sterile 6-11 (Same As: l water 20 mL 06:00: Ancef, Herm kendra 00 Kefzol) MEDICATION WASTE Product Size: 1000 mg Product Wasted: ___ mg ceFAZolin + 2020-0 No Notes: Abraham joana sterile 6-11 (Same As: l water 20 mL 06:00: Ancef, Herm kendra 00 Kefzol) MEDICATION WASTE Product Size: 1000 mg Product Wasted: ___ mg ceFAZolin + 2020-0 No Notes: Abraham joana sterile 6-11 (Same As: l water 20 mL 06:00: Ancef, Herm kendra 00 Kefzol) MEDICATION WASTE Product Size: 1000 mg Product Wasted: ___ mg ceFAZolin + 2020-0 No Notes: Abraham joana sterile 6-11 (Same As: l water 20 mL 06:00: Ancef, Herm kendra 00 Kefzol) MEDICATION WASTE Product Size: 1000 mg Product Wasted: ___ mg ferrous 2020-0 Yes 325 mg = 1 Abraham joana sulfate 325 - tab, PO, l MG Oral 20:56: TID, 0 Ben Tablet 00 Refill(s) metoprolol 2020-0 Yes 25 mg = 1 Me moria succinate 08-29 cap, PO, l 25 mg oral 20:56: Daily, 0 Her josé capsule, 00 Refill(s) extended release ferrous 2020-0 Yes 325 mg = 1 Abraham joana sulfate 325 6-09 tab, PO, l MG Oral 20:56: TID, 0 Ben Tablet 00 Refill(s) metoprolol 2020-0 Yes 25 mg = 1 Me moria succinate 6-09 cap, PO, l 25 mg oral 20:56: Daily, 0 Her josé capsule, 00 Refill(s) extended release ferrous 2020-0 Yes 325 mg = 1 Abraham joana sulfate 325 6-09 tab, PO, l MG Oral 20:56: TID, 0 [place] Tablet 00 Refill(s) metoprolol 2020-0 Yes 25 mg = 1 Me moria succinate 6-09 cap, PO, l 25 mg oral 20:56: Daily, 0 Her josé capsule, 00 Refill(s) extended release ferrous 2020-0 Yes 325 mg = 1 Abraham joana sulfate 325 6-09 tab, PO, l MG Oral 20:56: TID, 0 [place] Tablet 00 Refill(s) metoprolol 2020-0 Yes 25 mg = 1 Me moria succinate 6-09 cap, PO, l 25 mg oral 20:56: Daily, 0 Her josé capsule, 00 Refill(s) extended release ferrous 2020-0 Yes 325 mg = 1 Abraham joana sulfate 325 6-09 tab, PO, l MG Oral 20:56: TID, 0 [place] Tablet 00 Refill(s) metoprolol 2020-0 Yes 25 mg = 1 Me moria succinate 6-09 cap, PO, l 25 mg oral 20:56: Daily, 0 Her josé capsule, 00 Refill(s) extended release ferrous 2020-0 Yes 325 mg = 1 Abraham joana sulfate 325 6-09 tab, PO, l MG Oral 20:56: TID, 0 Ben Tablet 00 Refill(s) metoprolol 2020-0 Yes 25 mg = 1 Me moria succinate 6-09 cap, PO, l 25 mg oral 20:56: Daily, 0 Her josé capsule, 00 Refill(s) extended release ferrous 2020-0 Yes 325 mg = 1 Abraham joana sulfate 325 6-09 tab, PO, l MG Oral 20:56: TID, 0 Ben Tablet 00 Refill(s) metoprolol 2020-0 Yes 25 mg = 1 Me moria succinate 6-09 cap, PO, l 25 mg oral 20:56: Daily, 0 Her josé capsule, 00 Refill(s) extended release ferrous 2020-0 Yes 325 mg = 1 Abraham joana sulfate 325 6-09 tab, PO, l MG Oral 20:56: TID, 0 Ben Tablet 00 Refill(s) metoprolol 2020-0 Yes 25 mg = 1 Me moria succinate 6-09 cap, PO, l 25 mg oral 20:56: Daily, 0 Her josé capsule, 00 Refill(s) extended release ferrous 2020-0 Yes 325 mg = 1 Abraham joana sulfate 325 6-09 tab, PO, l MG Oral 20:56: TID, 0 [place] Tablet 00 Refill(s) metoprolol 2020-0 Yes 25 mg = 1 Me moria succinate 6-09 cap, PO, l 25 mg oral 20:56: Daily, 0 Her josé capsule, 00 Refill(s) extended release ferrous 2020-0 Yes 325 mg = 1 Abraham joana sulfate 325 6-09 tab, PO, l MG Oral 20:56: TID, 0 [place] Tablet 00 Refill(s) metoprolol 2020-0 Yes 25 mg = 1 Me moria succinate 6-09 cap, PO, l 25 mg oral 20:56: Daily, 0 Her josé capsule, 00 Refill(s) extended release Acetaminoph 2020-0 Yes 1 tab, PO, Memoria en 300 MG / 4-25 Q4H, PRN l Codeine 15:20: Pain, X 3 Tamela nn Phosphate 00 day, # 18 30 MG Oral tab, 0 Tablet Refill(s) [Tylenol with Codeine #3] omeprazole 2020-0 Yes 40 mg = 1 Me moria 40 mg oral 4-25 cap, PO, l delayed 15:20: Daily, # Bryant n release 00 30 cap, 0 capsule Refill(s) Sucralfate 2020-0 Yes 1 gm = 1 Mem oria 1000 MG 4-25 tab, PO, l Oral Tablet 15:20: QID-Before Ben [Carafate] 00 Meals, # 40 tab, 0 Refill(s) Acetaminoph 2020-0 Yes 1 tab, PO, Memoria en 300 MG / 4-25 Q4H, PRN l Codeine 15:20: Pain, X 3 Tamela nn Phosphate 00 day, # 18 30 MG Oral tab, 0 Tablet Refill(s) [Tylenol with Codeine #3] omeprazole 2020-0 Yes 40 mg = 1 Me moria 40 mg oral 4-25 cap, PO, l delayed 15:20: Daily, # Bryant n release 00 30 cap, 0 capsule Refill(s) Sucralfate 2020-0 Yes 1 gm = 1 Mem oria 1000 MG 4-25 tab, PO, l Oral Tablet 15:20: QID-Before [place] [Carafate] 00 Meals, # 40 tab, 0 Refill(s) Acetaminoph 2020-0 Yes 1 tab, PO, Memoria en 300 MG / 4-25 Q4H, PRN l Codeine 15:20: Pain, X 3 Tamela nn Phosphate 00 day, # 18 30 MG Oral tab, 0 Tablet Refill(s) [Tylenol with Codeine #3] omeprazole 2020-0 Yes 40 mg = 1 Me moria 40 mg oral 4-25 cap, PO, l delayed 15:20: Daily, # Bryant n release 00 30 cap, 0 capsule Refill(s) Sucralfate 2020-0 Yes 1 gm = 1 Mem oria 1000 MG 4-25 tab, PO, l Oral Tablet 15:20: QID-Before [place] [Carafate] 00 Meals, # 40 tab, 0 Refill(s) Acetaminoph 2020-0 Yes 1 tab, PO, Memoria en 300 MG / 4-25 Q4H, PRN l Codeine 15:20: Pain, X 3 Tamela nn Phosphate 00 day, # 18 30 MG Oral tab, 0 Tablet Refill(s) [Tylenol with Codeine #3] omeprazole 2020-0 Yes 40 mg = 1 Me moria 40 mg oral 4-25 cap, PO, l delayed 15:20: Daily, # Bryant n release 00 30 cap, 0 capsule Refill(s) Sucralfate 2020-0 Yes 1 gm = 1 Mem oria 1000 MG 4-25 tab, PO, l Oral Tablet 15:20: QID-Before [place] [Carafate] 00 Meals, # 40 tab, 0 Refill(s) Acetaminoph 2020-0 Yes 1 tab, PO, Memoria en 300 MG / 4-25 Q4H, PRN l Codeine 15:20: Pain, X 3 Tamela nn Phosphate 00 day, # 18 30 MG Oral tab, 0 Tablet Refill(s) [Tylenol with Codeine #3] omeprazole 2020-0 Yes 40 mg = 1 Me moria 40 mg oral 4-25 cap, PO, l delayed 15:20: Daily, # Bryant n release 00 30 cap, 0 capsule Refill(s) Sucralfate 2020-0 Yes 1 gm = 1 Mem oria 1000 MG 4-25 tab, PO, l Oral Tablet 15:20: QID-Before [place] [Carafate] 00 Meals, # 40 tab, 0 Refill(s) Acetaminoph 2020-0 Yes 1 tab, PO, Memoria en 300 MG / 4-25 Q4H, PRN l Codeine 15:20: Pain, X 3 Tamela nn Phosphate 00 day, # 18 30 MG Oral tab, 0 Tablet Refill(s) [Tylenol with Codeine #3] omeprazole 2020-0 Yes 40 mg = 1 Me moria 40 mg oral 4-25 cap, PO, l delayed 15:20: Daily, # Bryant n release 00 30 cap, 0 capsule Refill(s) Sucralfate 2020-0 Yes 1 gm = 1 Mem oria 1000 MG 4-25 tab, PO, l Oral Tablet 15:20: QID-Before [place] [Carafate] 00 Meals, # 40 tab, 0 Refill(s) Acetaminoph 2020-0 Yes 1 tab, PO, Memoria en 300 MG / 4-25 Q4H, PRN l Codeine 15:20: Pain, X 3 Tamela nn Phosphate 00 day, # 18 30 MG Oral tab, 0 Tablet Refill(s) [Tylenol with Codeine #3] omeprazole 2020-0 Yes 40 mg = 1 Me moria 40 mg oral 4-25 cap, PO, l delayed 15:20: Daily, # Bryant n release 00 30 cap, 0 capsule Refill(s) Sucralfate 2020-0 Yes 1 gm = 1 Mem oria 1000 MG 4-25 tab, PO, l Oral Tablet 15:20: QID-Before [place] [Carafate] 00 Meals, # 40 tab, 0 Refill(s) Acetaminoph 2020-0 Yes 1 tab, PO, Memoria en 300 MG / 4-25 Q4H, PRN l Codeine 15:20: Pain, X 3 Tamela nn Phosphate 00 day, # 18 30 MG Oral tab, 0 Tablet Refill(s) [Tylenol with Codeine #3] omeprazole 2020-0 Yes 40 mg = 1 Me moria 40 mg oral 4-25 cap, PO, l delayed 15:20: Daily, # Bryant n release 00 30 cap, 0 capsule Refill(s) Sucralfate 2020-0 Yes 1 gm = 1 Mem oria 1000 MG 4-25 tab, PO, l Oral Tablet 15:20: QID-Before Ben [Carafate] 00 Meals, # 40 tab, 0 Refill(s) Acetaminoph 2020-0 Yes 1 tab, PO, Memoria en 300 MG / 4-25 Q4H, PRN l Codeine 15:20: Pain, X 3 Tamela nn Phosphate 00 day, # 18 30 MG Oral tab, 0 Tablet Refill(s) [Tylenol with Codeine #3] omeprazole 2020-0 Yes 40 mg = 1 Me moria 40 mg oral 4-25 cap, PO, l delayed 15:20: Daily, # Bryant n release 00 30 cap, 0 capsule Refill(s) Sucralfate 2020-0 Yes 1 gm = 1 Mem oria 1000 MG 4-25 tab, PO, l Oral Tablet 15:20: QID-Before [place] [Carafate] 00 Meals, # 40 tab, 0 Refill(s) Acetaminoph 2020-0 Yes 1 tab, PO, Memoria en 300 MG / 4-25 Q4H, PRN l Codeine 15:20: Pain, X 3 Tamela nn Phosphate 00 day, # 18 30 MG Oral tab, 0 Tablet Refill(s) [Tylenol with Codeine #3] omeprazole 2020-0 Yes 40 mg = 1 Me moria 40 mg oral 4-25 cap, PO, l delayed 15:20: Daily, # Bryant n release 00 30 cap, 0 capsule Refill(s) Sucralfate 2020-0 Yes 1 gm = 1 Mem oria 1000 MG 4-25 tab, PO, l Oral Tablet 15:20: QID-Before Ben [Carafate] 00 Meals, # 40 tab, 0 Refill(s) Zofran 2020-0 No 4 mg, Memoria 4-25 Route: l 14:01: IVP, Drug Ben form: INJ, ONCE, Dosing Weight 75.909, kg, Priority: STAT, Start date: 07/16/19 9:01:00 CDT, Stop date: 07/16/19 9:01:00 CDT Zofran 2020-0 No 4 mg, Memoria 4-25 Route: l 14:01: IVP, Drug [place] 00 form: INJ, ONCE, Dosing Weight 75.909, kg, Priority: STAT, Start date: 07/16/19 9:01:00 CDT, Stop date: 07/16/19 9:01:00 CDT Zofran 2020-0 No 4 mg, Memoria 4-25 Route: l 14:01: IVP, Drug [place] 00 form: INJ, ONCE, Dosing Weight 75.909, kg, Priority: STAT, Start date: 07/16/19 9:01:00 CDT, Stop date: 07/16/19 9:01:00 CDT Zofran 2020-0 No 4 mg, Memoria 4-25 Route: l 14:01: IVP, Drug [place] 00 form: INJ, ONCE, Dosing Weight 75.909, kg, Priority: STAT, Start date: 07/16/19 9:01:00 CDT, Stop date: 07/16/19 9:01:00 CDT Zofran 2020-0 No 4 mg, Memoria 4-25 Route: l 14:01: IVP, Drug [place] 00 form: INJ, ONCE, Dosing Weight 75.909, kg, Priority: STAT, Start date: 07/16/19 9:01:00 CDT, Stop date: 07/16/19 9:01:00 CDT Zofran 2020-0 No 4 mg, Memoria 4-25 Route: l 14:01: IVP, Drug [place] 00 form: INJ, ONCE, Dosing Weight 75.909, kg, Priority: STAT, Start date: 07/16/19 9:01:00 CDT, Stop date: 07/16/19 9:01:00 CDT Zofran 2020-0 No 4 mg, Memoria 4-25 Route: l 14:01: IVP, Drug [place] 00 form: INJ, ONCE, Dosing Weight 75.909, kg, Priority: STAT, Start date: 07/16/19 9:01:00 CDT, Stop date: 07/16/19 9:01:00 CDT Zofran 2020-0 No 4 mg, Memoria 4-25 Route: l 14:01: IVP, Drug [place] 00 form: INJ, ONCE, Dosing Weight 75.909, kg, Priority: STAT, Start date: 07/16/19 9:01:00 CDT, Stop date: 07/16/19 9:01:00 CDT Zofran 2020-0 No 4 mg, Memoria 4-25 Route: l 14:01: IVP, Drug Ben 00 form: INJ, ONCE, Dosing Weight 75.909, kg, Priority: STAT, Start date: 07/16/19 9:01:00 CDT, Stop date: 07/16/19 9:01:00 CDT Zofran 2020-0 No 4 mg, Memoria 4-25 Route: l 14:01: IVP, Drug [place] 00 form: INJ, ONCE, Dosing Weight 75.909, kg, Priority: STAT, Start date: 07/16/19 9:01:00 CDT, Stop date: 07/16/19 9:01:00 CDT Fentanyl 2020-0 No 50 Memoria 4-25 microgram, l 13:49: Route: [place] 00 IVP, ONCE, Dosing Weight 75.909, kg, Priority: STAT, Start date: 07/16/19 8:49:00 CDT, Stop date: 07/16/19 8:49:00 CDT Fentanyl 2020-0 No 50 Memoria 4-25 microgram, l 13:49: Route: Ben 00 IVP, ONCE, Dosing Weight 75.909, kg, Priority: STAT, Start date: 07/16/19 8:49:00 CDT, Stop date: 07/16/19 8:49:00 CDT Fentanyl 2020-0 No 50 Memoria 4-25 microgram, l 13:49: Route: [place] 00 IVP, ONCE, Dosing Weight 75.909, kg, Priority: STAT, Start date: 07/16/19 8:49:00 CDT, Stop date: 07/16/19 8:49:00 CDT Fentanyl 2020-0 No 50 Memoria 4-25 microgram, l 13:49: Route: Ben 00 IVP, ONCE, Dosing Weight 75.909, kg, Priority: STAT, Start date: 07/16/19 8:49:00 CDT, Stop date: 07/16/19 8:49:00 CDT Fentanyl 2020-0 No 50 Memoria 4-25 microgram, l 13:49: Route: [place] 00 IVP, ONCE, Dosing Weight 75.909, kg, Priority: STAT, Start date: 07/16/19 8:49:00 CDT, Stop date: 07/16/19 8:49:00 CDT Fentanyl 2020-0 No 50 Memoria 4-25 microgram, l 13:49: Route: [place] 00 IVP, ONCE, Dosing Weight 75.909, kg, Priority: STAT, Start date: 07/16/19 8:49:00 CDT, Stop date: 07/16/19 8:49:00 CDT Fentanyl 2020-0 No 50 [facility] 4-25 microgram, l 13:49: Route: [place] 00 IVP, ONCE, Dosing Weight 75.909, kg, Priority: STAT, Start date: 07/16/19 8:49:00 CDT, Stop date: 07/16/19 8:49:00 CDT Fentanyl 2020-0 No 50 [facility] 4-25 microgram, l 13:49: Route: [place] 00 IVP, ONCE, Dosing Weight 75.909, kg, Priority: STAT, Start date: 07/16/19 8:49:00 CDT, Stop date: 07/16/19 8:49:00 CDT Fentanyl 2020-0 No 50 [facility] 4-25 microgram, l 13:49: Route: [place] 00 IVP, ONCE, Dosing Weight 75.909, kg, Priority: STAT, Start date: 07/16/19 8:49:00 CDT, Stop date: 07/16/19 8:49:00 CDT Fentanyl 2020-0 No 50 [facility] 4-25 microgram, l 13:49: Route: [place] 00 IVP, ONCE, Dosing Weight 75.909, kg, Priority: STAT, Start date: 07/16/19 8:49:00 CDT, Stop date: 07/16/19 8:49:00 CDT Al 2020-0 No Notes: [facility] hydroxide/M 4-25 (aluminum l g 13:06: hydroxide- [place] hydroxide/s 00 magnesium imethicone hyd-simeth icone 200-200-20 mg/5ml 30 ml ud [place]) Xylocaine 2020-0 No Notes: Memori a Viscous 2% 4-25 (Same as: l mucous 13:06: Xylocaine) Tamela nn membrane 00 solution Al 2019-0 No Notes: [facility] hydroxide/M 4-25 (aluminum l g 13:06: hydroxide- [place] hydroxide/s 00 magnesium imethicone hyd-simeth icone 200-200-20 mg/5ml 30 ml ud [place]) Xylocaine 2020-0 No Notes: [facility] a Viscous 2% 4-25 (Same as: l mucous 13:06: Xylocaine) [place] nn membrane 00 solution Al 2019-0 No Notes: [facility] hydroxide/M 4-25 (aluminum l g 13:06: hydroxide- [place] hydroxide/s 00 magnesium imethicone hyd-simeth icone 200-200-20 mg/5ml 30 ml ud [place]) Xylocaine 2019-0 No Notes: [facility]ori a Viscous 2% 4-25 (Same as: l mucous 13:06: Xylocaine) Tamela nn membrane 00 solution Al 2019-0 No Notes: [facility] hydroxide/M 4-25 (aluminum l g 13:06: hydroxide- [place] hydroxide/s 00 magnesium imethicone hyd-simeth icone 200-200-20 mg/5ml 30 ml ud [place]) Xylocaine 2019-0 No Notes: [facility]ori a Viscous 2% 4-25 (Same as: l mucous 13:06: Xylocaine) Tamela nn membrane 00 solution Al 2019-0 No Notes: [facility] hydroxide/M 4-25 (aluminum l g 13:06: hydroxide- [place] hydroxide/s 00 magnesium imethicone hyd-simeth icone 200-200-20 mg/5ml 30 ml ud [place]) Xylocaine 2020-0 No Notes: [facility] a Viscous 2% 4-25 (Same as: l mucous 13:06: Xylocaine) [place] nn membrane 00 solution Al 2019-0 No Notes: [facility] hydroxide/M 4-25 (aluminum l g 13:06: hydroxide- [place] hydroxide/s 00 magnesium imethicone hyd-simeth icone 200-200-20 mg/5ml 30 ml ud [place]) Xylocaine 2020-0 No Notes: [facility]ori a Viscous 2% 4-25 (Same as: l mucous 13:06: Xylocaine) Tamela nn membrane 00 solution Al 0 No Notes: [facility] hydroxide/M 4-25 (aluminum l g 13:06: hydroxide- [place] hydroxide/s 00 magnesium imethicone hyd-simeth icone 200-200-20 mg/5ml 30 ml ud GENNARO) Xylocaine 2019-0 No Notes: Memori a Viscous 2% 4-25 (Same as: l mucous 13:06: Xylocaine) Tamela nn membrane 00 solution Al 2019-0 No Notes: Memoria hydroxide/M 4-25 (aluminum l g 13:06: hydroxide- [place] hydroxide/s 00 magnesium imethicone hyd-simeth icone 200-200-20 mg/5ml 30 ml ud GENNARO) Xylocaine 0 No Notes: Memori a Viscous 2% 4-25 (Same as: l mucous 13:06: Xylocaine) Tamela nn membrane 00 solution Al 0 No Notes: Memoria hydroxide/M 4-25 (aluminum l g 13:06: hydroxide- [place] hydroxide/s 00 magnesium imethicone hyd-simeth icone 200-200-20 mg/5ml 30 ml ud GENNARO) Xylocaine 2019-0 No Notes: Memori a Viscous 2% 4-25 (Same as: l mucous 13:06: Xylocaine) Tamela nn membrane 00 solution Al 2019-0 No Notes: Memoria hydroxide/M 4-25 (aluminum l g 13:06: hydroxide- Ben hydroxide/s 00 magnesium imethicone hyd-simeth icone 200-200-20 mg/5ml 30 ml ud GENNARO) Xylocaine 2019-0 No Notes: Memori a Viscous 2% 4-25 (Same as: l mucous 13:06: Xylocaine) Tamela nn membrane 00 solution Morphine 2019-0 No Notes: Memoria 4-25 (Same l 13:01: as:MORPhin [place] 00 e Sulfate) Pepcid 2019-0 No Notes: Memoria 4-25 (Same as: l 13:01: Pepcid) [place] 00 Can be dilute in 5-10cc NS IVP: Slow IV push over at least 2 minutes. GI cocktail 2020-0 No 45 mL, Abraham joana (aluminum 4-25 Route: PO, l hydroxide/m 13:01: Dosing Herm kendra agnesium 00 Weight hydroxide/l 75.909, idocaine/si kg, ONCE, methicone) STAT, Start date: 07/16/19 8:01:00 CDT, Stop date: 07/16/19 8:01:00 CDT Morphine 2020-0 No Notes: Memoria 4-25 (Same l 13:01: as:MORPhin Ben 00 e Sulfate) Pepcid 2020-0 No Notes: Memoria 4-25 (Same as: l 13:01: Pepcid) [place] 00 Can be dilute in 5-10cc NS IVP: Slow IV push over at least 2 minutes. GI cocktail 0 No 45 mL, Abraham joana (aluminum 4-25 Route: PO, l hydroxide/m 13:01: Dosing Herm kendra agnesium 00 Weight hydroxide/l 75.909, idocaine/si kg, ONCE, methicone) STAT, Start date: 07/16/19 8:01:00 CDT, Stop date: 07/16/19 8:01:00 CDT Morphine 2020-0 No Notes: Memoria 4-25 (Same l 13:01: as:MORPhin Ben 00 e Sulfate) Pepcid 2020-0 No Notes: Memoria 4-25 (Same as: l 13:01: Pepcid) Ben 00 Can be dilute in 5-10cc NS IVP: Slow IV push over at least 2 minutes. GI cocktail 2019-0 No 45 mL, Abraham joana (aluminum 4-25 Route: PO, l hydroxide/m 13:01: Dosing Herm kendra agnesium 00 Weight hydroxide/l 75.909, idocaine/si kg, ONCE, methicone) STAT, Start date: 07/16/19 8:01:00 CDT, Stop date: 07/16/19 8:01:00 CDT Morphine 2020-0 No Notes: Memoria 4-25 (Same l 13:01: as:MORPhin [place] 00 e Sulfate) Pepcid 2020-0 No Notes: Memoria 4-25 (Same as: l 13:01: Pepcid) [place] 00 Can be dilute in 5-10cc NS IVP: Slow IV push over at least 2 minutes. GI cocktail 2019-0 No 45 mL, Abraham joana (aluminum 4-25 Route: PO, l hydroxide/m 13:01: Dosing Herm kendra agnesium 00 Weight hydroxide/l 75.909, idocaine/si kg, ONCE, methicone) STAT, Start date: 07/16/19 8:01:00 CDT, Stop date: 07/16/19 8:01:00 CDT Morphine 2020-0 No Notes: Memoria 4-25 (Same l 13:01: as:MORPhin [place] 00 e Sulfate) Pepcid 2020-0 No Notes: Memoria 4-25 (Same as: l 13:01: Pepcid) [place] 00 Can be dilute in 5-10cc NS IVP: Slow IV push over at least 2 minutes. GI cocktail No 45 mL, Abraham joana (aluminum 4-25 Route: PO, l hydroxide/m 13:01: Dosing Herm kendra agnesium 00 Weight hydroxide/l 75.909, idocaine/si kg, ONCE, methicone) STAT, Start date: 07/16/19 8:01:00 CDT, Stop date: 07/16/19 8:01:00 CDT Morphine 2020-0 No Notes: Memoria 4-25 (Same l 13:01: as:MORPhin Ben 00 e Sulfate) Pepcid 20200 No Notes: Memoria 4-25 (Same as: l 13:01: Pepcid) Ben 00 Can be dilute in 5-10cc NS IVP: Slow IV push over at least 2 minutes. GI cocktail No 45 mL, Abraham joana (aluminum 4-25 Route: PO, l hydroxide/m 13:01: Dosing Herm kendra agnesium 00 Weight hydroxide/l 75.909, idocaine/si kg, ONCE, methicone) STAT, Start date: 07/16/19 8:01:00 CDT, Stop date: 07/16/19 8:01:00 CDT Morphine 2020-0 No Notes: [facility]oria 4-25 (Same l 13:01: as:MORPhin [place] 00 e Sulfate) Pepcid 20200 No Notes: [facility]oria 4-25 (Same as: l 13:01: Pepcid) [place] 00 Can be dilute in 5-10cc NS IVP: Slow IV push over at least 2 minutes. GI cocktail 2019-0 No 45 mL, Abraham joana (aluminum 4-25 Route: PO, l hydroxide/m 13:01: Dosing Herm kendra agnesium 00 Weight hydroxide/l 75.909, idocaine/si kg, ONCE, methicone) STAT, Start date: 07/16/19 8:01:00 CDT, Stop date: 07/16/19 8:01:00 CDT Morphine 2020-0 No Notes: Memoria 4-25 (Same l 13:01: as:MORPhin Ben 00 e Sulfate) Pepcid 2019-0 No Notes: [facility]oria 4-25 (Same as: l 13:01: Pepcid) [place] 00 Can be dilute in 5-10cc NS IVP: Slow IV push over at least 2 minutes. GI cocktail 2019-0 No 45 mL, Abraham joana (aluminum 4-25 Route: PO, l hydroxide/m 13:01: Dosing Herm kendra agnesium 00 Weight hydroxide/l 75.909, idocaine/si kg, ONCE, methicone) STAT, Start date: 07/16/19 8:01:00 CDT, Stop date: 07/16/19 8:01:00 CDT Morphine 2020-0 No Notes: Memoria 4-25 (Same l 13:01: as:MORPhin Ben 00 e Sulfate) Pepcid 0 No Notes: Memoria 4-25 (Same as: l 13:01: Pepcid) Ben 00 Can be dilute in 5-10cc NS IVP: Slow IV push over at least 2 minutes. GI cocktail 2019-0 No 45 mL, Abraham joana (aluminum 4-25 Route: PO, l hydroxide/m 13:01: Dosing Herm kendra agnesium 00 Weight hydroxide/l 75.909, idocaine/si kg, ONCE, methicone) STAT, Start date: 07/16/19 8:01:00 CDT, Stop date: 07/16/19 8:01:00 CDT Morphine 2020-0 No Notes: Memoria 4-25 (Same l 13:01: as:MORPhin [place] 00 e Sulfate) Pepcid 20200 No Notes: Memoria 4-25 (Same as: l 13:01: Pepcid) Ben 00 Can be dilute in 5-10cc NS IVP: Slow IV push over at least 2 minutes. GI cocktail No 45 mL, Abraham joana (aluminum 4-25 Route: PO, l hydroxide/m 13:01: Dosing Herm kendra agnesium 00 Weight hydroxide/l 75.909, idocaine/si kg, ONCE, methicone) STAT, Start date: 07/16/19 8:01:00 CDT, Stop date: 07/16/19 8:01:00 CDT Visipaque No Notes: Memori a 320 mg/mL 4-22 (Same as: l injectable 00:38: Visipaque) H ermann solution 00 . WASTE: F/P - Black; E - [facility] Visipaque No Notes: Memori a 320 mg/mL 4-22 (Same as: l injectable 00:38: Visipaque) H ermann solution 00 . WASTE: F/P - Black; E - [facility] Trash [facility] Visipaque No Notes: Memori a 320 mg/mL 4-22 (Same as: l injectable 00:38: Visipaque) H ermann solution 00 . WASTE: F/P - Black; E - [facility] Trash [facility] Visipaque No Notes: Memori a 320 mg/mL 4-22 (Same as: l injectable 00:38: Visipaque) H ermann solution 00 . WASTE: F/P - Black; E - [facility] Trash [facility] Visipaque No Notes: Memori a 320 mg/mL 4-22 (Same as: l injectable 00:38: Visipaque) H ermann solution 00 . WASTE: F/P - Black; E - [facility] Trash [facility] Visipaque No Notes: Memori a 320 mg/mL 4-22 (Same as: l injectable 00:38: Visipaque) H ermann solution 00 . WASTE: F/P - Black; E - [facility] Trash [facility] Visipaque No Notes: Memori a 320 mg/mL 4-22 (Same as: l injectable 00:38: Visipaque) H ermann solution 00 . WASTE: F/P - Black; E - [facility] Trash [facility] Visipaque No Notes: Memori a 320 mg/mL 4-22 (Same as: l injectable 00:38: Visipaque) H ermann solution 00 . WASTE: F/P - Black; E - [facility] Trash [facility] Visipaque 2020-0 No Notes: Memori a 320 mg/mL 4-22 (Same as: l injectable 00:38: Visipaque) H ermann solution 00 . WASTE: F/P - Black; E - [facility]ash [facility] Visipaque 2020-0 No Notes: Memori a 320 mg/mL 4-22 (Same as: l injectable 00:38: Visipaque) H ermann solution 00 . WASTE: F/P - Black; E - [facility] ketOROLAC 2020-0 No 4 days Memor ia 30 mg/mL 4-21 l injectable 23:50: MEDICATION H ermann solution 00 WASTE Product Size: 30 mg Product Wasted: _0__ mg ketOROLAC 2020-0 No 4 days Memor ia 30 mg/mL 4-21 l injectable 23:50: MEDICATION H ermann solution 00 WASTE Product Size: 30 mg Product Wasted: _0__ mg ketOROLAC 2020-0 No 4 days Memor ia 30 mg/mL 4-21 l injectable 23:50: MEDICATION H ermann solution 00 WASTE Product Size: 30 mg Product Wasted: _0__ mg ketOROLAC 2020-0 No 4 days Memor ia 30 mg/mL 4-21 l injectable 23:50: MEDICATION H ermann solution 00 WASTE Product Size: 30 mg Product Wasted: _0__ mg ketOROLAC 2020-0 No 4 days Memor ia 30 mg/mL -21 l injectable 23:50: MEDICATION H ermann solution 00 WASTE Product Size: 30 mg Product Wasted: _0__ mg ketOROLAC 2020-0 No 4 days Memor ia 30 mg/mL 4-21 l injectable 23:50: MEDICATION H ermann solution 00 WASTE Product Size: 30 mg Product Wasted: _0__ mg ketOROLAC 2020-0 No 4 days Memor ia 30 mg/mL 4-21 l injectable 23:50: MEDICATION H ermann solution 00 WASTE Product Size: 30 mg Product Wasted: _0__ mg ketOROLAC 2020-0 No 4 days Memor ia 30 mg/mL -21 l injectable 23:50: MEDICATION H ermann solution 00 WASTE Product Size: 30 mg Product Wasted: _0__ mg ketOROLAC 2020-0 No 4 days Memor ia 30 mg/mL - l injectable 23:50: MEDICATION H ermann solution 00 WASTE Product Size: 30 mg Product Wasted: _0__ mg ketOROLAC 2020-0 No 4 days Memor ia 30 mg/mL 07-11 l injectable 23:50: MEDICATION H ermann solution 00 WASTE Product Size: 30 mg Product Wasted: _0__ mg Saline 2020-0 No Notes: Memoria Flush 0.9% 4-21 (Same as: l 22:46: BD [place] 00 Posiflush) Sodium 2020-0 No 1,000 mL, Memori a Chloride 4-21 1000 l 0.9% 22:46: ml/hr, Ben (Bolus) IV 00 Infuse Over: 1 hr, Route: IV, 1,000, Drug form: INJ, ONCE, Priority: STAT, Dosing Weight 85 kg, Start date: 07/12/19 17:46:00 CDT, Stop date: 07/12/19 17:46:00 CDT, 0 Ondansetron 2020-0 No Notes: Abraham joana 4-21 (Same as: l 22:46: Zofran) [place] 00 MEDICATION WASTE Product Size: 4 mg Product Wasted: 0___ mg Saline 2020-0 No Notes: Memoria Flush 0.9% 4-21 (Same as: l 22:46: BD Ben 00 Posiflush) Sodium 2020-0 No 1,000 mL, Memori a Chloride 4-21 1000 l 0.9% 22:46: ml/hr, [place] (Bolus) IV 00 Infuse Over: 1 hr, Route: IV, 1,000, Drug form: INJ, ONCE, Priority: STAT, Dosing Weight 85 kg, Start date: 07/12/19 17:46:00 CDT, Stop date: 07/12/19 17:46:00 CDT, 0 Ondansetron 2020-0 No Notes: Abraham joana 4-21 (Same as: l 22:46: Zofran) [place] 00 MEDICATION WASTE Product Size: 4 mg Product Wasted: 0___ mg Saline 2020-0 No Notes: Memoria Flush 0.9% 4-21 (Same as: l 22:46: BD [place] 00 Posiflush) Sodium 2020-0 No 1,000 mL, Memori a Chloride 4-21 1000 l 0.9% 22:46: ml/hr, [place] (Bolus) IV 00 Infuse Over: 1 hr, Route: IV, 1,000, Drug form: INJ, ONCE, Priority: STAT, Dosing Weight 85 kg, Start date: 07/12/19 17:46:00 CDT, Stop date: 07/12/19 17:46:00 CDT, 0 Ondansetron 2020-0 No Notes: Abraham joana 4-21 (Same as: l 22:46: Zofran) Ben 00 MEDICATION WASTE Product Size: 4 mg Product Wasted: 0___ mg Saline 2020-0 No Notes: Memoria Flush 0.9% 4-21 (Same as: l 22:46: BD Ben 00 Posiflush) Sodium 2020-0 No 1,000 mL, Memori a Chloride 4-21 1000 l 0.9% 22:46: ml/hr, [place] (Bolus) IV 00 Infuse Over: 1 hr, Route: IV, 1,000, Drug form: INJ, ONCE, Priority: STAT, Dosing Weight 85 kg, Start date: 07/12/19 17:46:00 CDT, Stop date: 07/12/19 17:46:00 CDT, 0 Ondansetron 2020-0 No Notes: Abraham joana 4-21 (Same as: l 22:46: Zofran) [place] 00 MEDICATION WASTE Product Size: 4 mg Product Wasted: 0___ mg Saline 2020-0 No Notes: Memoria Flush 0.9% 4-21 (Same as: l 22:46: BD [place] 00 Posiflush) Sodium 2020-0 No 1,000 mL, Memori a Chloride 4-21 1000 l 0.9% 22:46: ml/hr, Ben (Bolus) IV 00 Infuse Over: 1 hr, Route: IV, 1,000, Drug form: INJ, ONCE, Priority: STAT, Dosing Weight 85 kg, Start date: 07/12/19 17:46:00 CDT, Stop date: 07/12/19 17:46:00 CDT, 0 Ondansetron 2020-0 No Notes: Abraham joana 4-21 (Same as: l 22:46: Zofran) [place] 00 MEDICATION WASTE Product Size: 4 mg Product Wasted: 0___ mg Saline 2020-0 No Notes: Memoria Flush 0.9% 4-21 (Same as: l 22:46: BD [place] 00 Posiflush) Sodium 2020-0 No 1,000 mL, Memori a Chloride 4-21 1000 l 0.9% 22:46: ml/hr, [place] (Bolus) IV 00 Infuse Over: 1 hr, Route: IV, 1,000, Drug form: INJ, ONCE, Priority: STAT, Dosing Weight 85 kg, Start date: 07/12/19 17:46:00 CDT, Stop date: 07/12/19 17:46:00 CDT, 0 Ondansetron 2020-0 No Notes: Abraham joana 4-21 (Same as: l 22:46: Zofran) [place] 00 MEDICATION WASTE Product Size: 4 mg Product Wasted: 0___ mg Saline 2020-0 No Notes: Memoria Flush 0.9% 4-21 (Same as: l 22:46: BD [place] 00 Posiflush) Sodium 2020-0 No 1,000 mL, Memori a Chloride 4-21 1000 l 0.9% 22:46: ml/hr, Ben (Bolus) IV 00 Infuse Over: 1 hr, Route: IV, 1,000, Drug form: INJ, ONCE, Priority: STAT, Dosing Weight 85 kg, Start date: 07/12/19 17:46:00 CDT, Stop date: 07/12/19 17:46:00 CDT, 0 Ondansetron 2020-0 No Notes: Abraham joana 4-21 (Same as: l 22:46: Zofran) Ben 00 MEDICATION WASTE Product Size: 4 mg Product Wasted: 0___ mg Saline 2020-0 No Notes: Memoria Flush 0.9% 4-21 (Same as: l 22:46: BD [place] 00 Posiflush) Sodium 2020-0 No 1,000 mL, Memori a Chloride 4-21 1000 l 0.9% 22:46: ml/hr, [place] (Bolus) IV 00 Infuse Over: 1 hr, Route: IV, 1,000, Drug form: INJ, ONCE, Priority: STAT, Dosing Weight 85 kg, Start date: 07/12/19 17:46:00 CDT, Stop date: 07/12/19 17:46:00 CDT, 0 Ondansetron 2020-0 No Notes: Abraham joana 4-21 (Same as: l 22:46: Zofran) Ben 00 MEDICATION WASTE Product Size: 4 mg Product Wasted: 0___ mg Saline 2020-0 No Notes: Memoria Flush 0.9% 4-21 (Same as: l 22:46: BD [place] 00 Posiflush) Sodium 2020-0 No 1,000 mL, Memori a Chloride 4-21 1000 l 0.9% 22:46: ml/hr, Ben (Bolus) IV 00 Infuse Over: 1 hr, Route: IV, 1,000, Drug form: INJ, ONCE, Priority: STAT, Dosing Weight 85 kg, Start date: 07/12/19 17:46:00 CDT, Stop date: 07/12/19 17:46:00 CDT, 0 Ondansetron 2020-0 No Notes: Abraham joana 4-21 (Same as: l 22:46: Zofran) Ben 00 MEDICATION WASTE Product Size: 4 mg Product Wasted: 0___ mg Saline 2020-0 No Notes: Memoria Flush 0.9% 4-21 (Same as: l 22:46: BD [place] 00 Posiflush) Sodium 2020-0 No 1,000 mL, Memori a Chloride 4-21 1000 l 0.9% 22:46: ml/hr, [place] (Bolus) IV 00 Infuse Over: 1 hr, Route: IV, 1,000, Drug form: INJ, ONCE, Priority: STAT, Dosing Weight 85 kg, Start date: 07/12/19 17:46:00 CDT, Stop date: 07/12/19 17:46:00 CDT, 0 Ondansetron No Notes: Abraham joana 4-21 (Same as: l 22:46: Zofran) [place] 00 MEDICATION WASTE Product Size: 4 mg Product Wasted: 0___ mg Lorazepam Yes 1 mg = 1 Me moria MG Oral 8-05 tab, PO, l Tablet 14:08: ONCE, PRN Bryant n 00 For MRI, Take 1 tablet 30 minutes prior to MRI. Please arrange for transporta tion to and from the imaging facility., # 1 tab, 0 Refill(s) Lorazepam 1 Yes 1 mg = 1 Me moria MG Oral 8-05 tab, PO, l Tablet 14:08: ONCE, PRN [place] n 00 For MRI, Take 1 tablet 30 minutes prior to MRI. Please arrange for transporta tion to and from the imaging facility., # 1 tab, 0 Refill(s) Lorazepam 1 Yes 1 mg = 1 Me moria MG Oral 8-05 tab, PO, l Tablet 14:08: ONCE, PRN [place] n 00 For MRI, Take 1 tablet 30 minutes prior to MRI. Please arrange for transporta tion to and from the imaging facility., # 1 tab, 0 Refill(s) Lorazepam 1 Yes 1 mg = 1 Me moria MG Oral 8-05 tab, PO, l Tablet 14:08: ONCE, PRN [place] n 00 For MRI, Take 1 tablet 30 minutes prior to MRI. Please arrange for transporta tion to and from the imaging facility., # 1 tab, 0 Refill(s) Lorazepam 1 Yes 1 mg = 1 Me moria MG Oral 8-05 tab, PO, l Tablet 14:08: ONCE, PRN [place] n 00 For MRI, Take 1 tablet 30 minutes prior to MRI. Please arrange for transporta tion to and from the imaging facility., # 1 tab, 0 Refill(s) Lorazepam 1 Yes 1 mg = 1 Me moria MG Oral 8-05 tab, PO, l Tablet 14:08: ONCE, PRN [place] n 00 For MRI, Take 1 tablet 30 minutes prior to MRI. Please arrange for transporta tion to and from the imaging facility., # 1 tab, 0 Refill(s) Lorazepam 1 2019-0 Yes 1 mg = 1 Me moria MG Oral 8-05 tab, PO, l Tablet 14:08: ONCE, PRN [place] n 00 For MRI, Take 1 tablet 30 minutes prior to MRI. Please arrange for transporta tion to and from the imaging facility., # 1 tab, 0 Refill(s) Lorazepam 1 2019-0 Yes 1 mg = 1 Me moria MG Oral 8-05 tab, PO, l Tablet 14:08: ONCE, PRN [place] n 00 For MRI, Take 1 tablet 30 minutes prior to MRI. Please arrange for transporta tion to and from the imaging facility., # 1 tab, 0 Refill(s) Lorazepam 1 2019-0 Yes 1 mg = 1 Me moria MG Oral 8-05 tab, PO, l Tablet 14:08: ONCE, PRN [place] n 00 For MRI, Take 1 tablet 30 minutes prior to MRI. Please arrange for transporta tion to and from the imaging facility., # 1 tab, 0 Refill(s) Lorazepam 1 2019-0 Yes 1 mg = 1 Me moria MG Oral 8-05 tab, PO, l Tablet 14:08: ONCE, PRN [place] n 00 For MRI, Take 1 tablet 30 minutes prior to MRI. Please arrange for transporta tion to and from the imaging facility., # 1 tab, 0 Refill(s) Aspirin 2019-0 Yes 81 mg, 0 Memori a 8-05 Refill(s) l 13:41: Aspirin 2019-0 Yes 81 mg, 0 Memori a 8-05 Refill(s) l 13:41: 00 Aspirin 2019-0 Yes 81 mg, 0 Memori a 8-05 Refill(s) l 13:41: 00 Aspirin 2019-0 Yes 81 mg, 0 Memori a 8-05 Refill(s) l 13:41: Aspirin 2019-0 Yes 81 mg, 0 Memori a 8-05 Refill(s) l 13:41: Aspirin 2019-0 Yes 81 mg, 0 Memori a 8-05 Refill(s) l 13:41: Aspirin 2019-0 Yes 81 mg, 0 Memori a 8-05 Refill(s) l 13:41: Aspirin 2019-0 Yes 81 mg, 0 Memori a 8-05 Refill(s) l 13:41: Aspirin 2019-0 Yes 81 mg, 0 Memori a 8-05 Refill(s) l 13:41: Aspirin 2019-0 Yes 81 mg, 0 Memori a 8-05 Refill(s) l 13:41: Amlodipine 2019-0 Yes 5 mg, PO, Me moria 8-05 BID, 0 l 13:32: Refill(s) Amlodipine 2019-0 Yes 5 mg, PO, Me moria 8-05 BID, 0 l 13:32: Refill(s) Amlodipine 2019-0 Yes 5 mg, PO, Me moria 8-05 BID, 0 l 13:32: Refill(s) Amlodipine 2019-0 Yes 5 mg, PO, Me moria 8-05 BID, 0 l 13:32: Refill(s) Amlodipine 2019-0 Yes 5 mg, PO, Me moria 8-05 BID, 0 l 13:32: Refill(s) Amlodipine 2019-0 Yes 5 mg, PO, Me moria 8-05 BID, 0 l 13:32: Refill(s) Amlodipine 2019-0 Yes 5 mg, PO, Me moria 8-05 BID, 0 l 13:32: Refill(s) Amlodipine 2019-0 Yes 5 mg, PO, Me moria 8-05 BID, 0 l 13:32: Refill(s) Amlodipine 2019-0 Yes 5 mg, PO, Me moria 8-05 BID, 0 l 13:32: Refill(s) Amlodipine 2019-0 Yes 5 mg, PO, Me moria 8-05 BID, 0 l 13:32: Refill(s) carvedilol 2019-0 Yes 6.25 mg, Mem oria 8-05 PO, BID, 0 l 13:31: Refill(s) rosuvastati 2019-0 Yes 10 mg, PO, Memoria n 8-05 Bedtime, 0 l 13:31: Refill(s) carvedilol 2019-0 Yes 6.25 mg, Mem oria 8-05 PO, BID, 0 l 13:31: Refill(s) [place] 00 rosuvastati 2018-0 Yes 10 mg, PO, Memoria n 8-05 Bedtime, 0 l 13:31: Refill(s) [place] 00 Losartan 2018-0 Yes 50 mg, PO, Mem oria 8-05 BID, 0 l 13:31: Refill(s) Ben 00 Losartan 2018-0 Yes 50 mg, PO, Mem oria 8-05 BID, 0 l 13:31: Refill(s) Ben 00 carvedilol 2018-0 Yes 6.25 mg, Mem oria 8-05 PO, BID, 0 l 13:31: Refill(s) [place] 00 rosuvastati 0 Yes 10 mg, PO, Memoria n 8-05 Bedtime, 0 l 13:31: Refill(s) Ben 00 Losartan 2018-0 Yes 50 mg, PO, Mem oria 8-05 BID, 0 l 13:31: Refill(s) Ben 00 carvedilol 2018-0 Yes 6.25 mg, Mem oria 8-05 PO, BID, 0 l 13:31: Refill(s) rosuvastati 2018-0 Yes 10 mg, PO, Memoria n 8-05 Bedtime, 0 l 13:31: Refill(s) Ben 00 Losartan 2018-0 Yes 50 mg, PO, Mem oria 8-05 BID, 0 l 13:31: Refill(s) [place] 00 carvedilol 2018-0 Yes 6.25 mg, Mem oria 8-05 PO, BID, 0 l 13:31: Refill(s) [place] 00 rosuvastati 2018-0 Yes 10 mg, PO, Memoria n 8-05 Bedtime, 0 l 13:31: Refill(s) [place] 00 Losartan 2018-0 Yes 50 mg, PO, Mem oria 8-05 BID, 0 l 13:31: Refill(s) [place] 00 carvedilol 2018-0 Yes 6.25 mg, Mem oria 8-05 PO, BID, 0 l 13:31: Refill(s) rosuvastati 2018-0 Yes 10 mg, PO, Memoria n 8-05 Bedtime, 0 l 13:31: Refill(s) [place] 00 Losartan 2018-0 Yes 50 mg, PO, Mem oria 8-05 BID, 0 l 13:31: Refill(s) carvedilol 2018-0 Yes 6.25 mg, Mem oria 8-05 PO, BID, 0 l 13:31: Refill(s) rosuvastati 0 Yes 10 mg, PO, Memoria n 8-05 Bedtime, 0 l 13:31: Refill(s) Losartan 0 Yes 50 mg, PO, Mem oria 8-05 BID, 0 l 13:31: Refill(s) carvedilol 2018-0 Yes 6.25 mg, Mem oria 8-05 PO, BID, 0 l 13:31: Refill(s) rosuvastati 0 Yes 10 mg, PO, Memoria n 8-05 Bedtime, 0 l 13:31: Refill(s) Losartan 0 Yes 50 mg, PO, Mem oria 8-05 BID, 0 l 13:31: Refill(s) carvedilol 2018-0 Yes 6.25 mg, Mem oria 8-05 PO, BID, 0 l 13:31: Refill(s) rosuvastati 2018-0 Yes 10 mg, PO, Memoria n 8-05 Bedtime, 0 l 13:31: Refill(s) Losartan 0 Yes 50 mg, PO, Mem oria 8-05 BID, 0 l 13:31: Refill(s) carvedilol 2018-0 Yes 6.25 mg, Mem oria 8-05 PO, BID, 0 l 13:31: Refill(s) rosuvastati 0 Yes 10 mg, PO, Memoria n 8-05 Bedtime, 0 l 13:31: Refill(s) Losartan 0 Yes 50 mg, PO, Mem oria 8-05 BID, 0 l 13:31: Refill(s) pantoprazol 0 Yes 40 mg, PO, Memoria e 8-05 Daily, # l 13:30: 30 tab, 0 Ben 00 Refill(s) pantoprazol 2019-0 Yes 40 mg, PO, Memoria e 8-05 Daily, # l 13:30: 30 tab, 0 [place] 00 Refill(s) pantoprazol 2019-0 Yes 40 mg, PO, Memoria e 8-05 Daily, # l 13:30: 30 tab, 0 Ben 00 Refill(s) pantoprazol 2019-0 Yes 40 mg, PO, Memoria e 8-05 Daily, # l 13:30: 30 tab, 0 [place] 00 Refill(s) pantoprazol 2019-0 Yes 40 mg, PO, Memoria e 8-05 Daily, # l 13:30: 30 tab, 0 Ben 00 Refill(s) pantoprazol 2019-0 Yes 40 mg, PO, Memoria e 8-05 Daily, # l 13:30: 30 tab, 0 [place] 00 Refill(s) pantoprazol 2019-0 Yes 40 mg, PO, Memoria e 8-05 Daily, # l 13:30: 30 tab, 0 Ben 00 Refill(s) pantoprazol 2019-0 Yes 40 mg, PO, Memoria e 8-05 Daily, # l 13:30: 30 tab, 0 [place] 00 Refill(s) pantoprazol 2019-0 Yes 40 mg, PO, Memoria e 8-05 Daily, # l 13:30: 30 tab, 0 [place] 00 Refill(s) pantoprazol 2019-0 Yes 40 mg, PO, Memoria e 8-05 Daily, # l 13:30: 30 tab, 0 Ben 00 Refill(s) clopidogrel 2017-03 Yes 75mg QD Take 75 mg [facility] (PLAVIX) 75 -[address] mg tablet 20:47: daily. Hospit [facility] 19 l rosuvastati 2017-03 Yes 10mg QD Take 10 mg [facility] (CRESTOR) -[address] 10 MG 20:47: daily. [facility]osp[facility] tablet 19 l ranitidine 2017-03 Yes 150mg Q.5D Take 150 [facility] (ZANTAC) 1-[address] 150 MG 20:47: mouth 2 Hospita tablet 19 (two) l times a day. iron 2017-03 Yes Take by [facility] bis-gly/FA/ 1-[address] C/B12/Ca/parr 20:47: Hospit a cc 19 l (IRON-150 ORAL) aspirin 2017-03 Yes 81mg QD Take 81 mg Meth ghulam (ECOTRIN) 04-[address] 81 MG 20:47: daily. [facility]ospita enteric 19 l coated tablet losartan 2017-03 Yes 50mg QD Take 50 mg [facility] (COZAAR) 50 04-[address] MG tablet 20:47: daily. Hospit a 19 l pantoprazol 2017-03 Yes 40mg QD Take 40 mg [facility] 04-[address] (PROTONIX) 20:47: daily. Hospi ta 40 MG EC 19 l tablet carvedilol Yes 3.125 mg = M emoria 3.125 mg 7-27 1 tab, PO, l oral tablet 19:52: BID, # 60 [facility] 00 tab, 2 Refill(s) atorvastati Yes 80 mg = 1 M em[facility] n 80 mg 7-27 tab, PO, l oral tablet 19:52: Bedtime, # [place] 00 30 tab, 2 Refill(s) Aspirin 81 Yes 81 mg = 1 [facility] 7-27 tab, PO, l Coated 19:52: Daily, # [place] Tablet 00 120 tab, 1 Refill(s) losartan 50 Yes 100 mg = 2 [facility] mg oral 7-27 tab, PO, l tablet 19:52: Daily, # [place] 00 60 tab, 2 Refill(s) pantoprazol Yes 40 mg = 1 M em[facility] e 40 mg 7-27 tab, PO, l oral 19:52: Daily, # [place] enter[facility] 00 30 tab, 2 coated Refill(s) tablet carvedilol Yes 3.125 mg = M [facility] 3.125 mg 7-27 1 tab, PO, l oral tablet 19:52: BID, # 60 [facility] [place] 00 tab, 2 Refill(s) atorvastati Yes 80 mg = 1 M [facility] n 80 mg 7-27 tab, PO, l oral tablet 19:52: Bedtime, # [place] 00 30 tab, 2 Refill(s) Aspirin 81 Yes 81 mg = 1 [facility] 7-27 tab, PO, l Coated 19:52: Daily, # [place] Tablet 00 120 tab, 1 Refill(s) losartan 50 Yes 100 mg = 2 [facility] mg oral 7-27 tab, PO, l tablet 19:52: Daily, # [place] 00 60 tab, 2 Refill(s) pantoprazol Yes 40 mg = 1 M [facility] e 40 mg 7-27 tab, PO, l oral 19:52: Daily, # [facility] 00 30 tab, 2 coated Refill(s) tablet carvedilol Yes 3.125 mg = M [facility] 3.125 mg 7-27 1 tab, PO, l oral tablet 19:52: BID, # 60 [facility] [place] 00 tab, 2 Refill(s) atorvastati Yes 80 mg = 1 M [facility] n 80 mg 7-27 tab, PO, l oral tablet 19:52: Bedtime, # [place] 00 30 tab, 2 Refill(s) Aspirin 81 Yes 81 mg = 1 [facility] 7-27 tab, PO, l Coated 19:52: Daily, # [place] Tablet 00 120 tab, 1 Refill(s) losartan 50 Yes 100 mg = 2 [facility] mg oral 7-27 tab, PO, l tablet 19:52: Daily, # [place] 00 60 tab, 2 Refill(s) pantoprazol Yes 40 mg = 1 M em[facility] e 40 mg 7-27 tab, PO, l oral 19:52: Daily, # [place] [facility] 00 30 tab, 2 coated Refill(s) tablet carvedilol Yes 3.125 mg = M [facility] 3.125 mg 7-27 1 tab, PO, l oral tablet 19:52: BID, # 60 [facility] [place] 00 tab, 2 Refill(s) atorvastati Yes 80 mg = 1 M [facility] n 80 mg 7-27 tab, PO, l oral tablet 19:52: Bedtime, # [place] 00 30 tab, 2 Refill(s) Aspirin 81 Yes 81 mg = 1 [facility] 7-27 tab, PO, l Coated 19:52: Daily, # [place] Tablet 00 120 tab, 1 Refill(s) losartan 50 Yes 100 mg = 2 [facility]oria mg oral 7-27 tab, PO, l tablet 19:52: Daily, # Ben 00 60 tab, 2 Refill(s) pantoprazol Yes 40 mg = 1 M emoria e 40 mg 7-27 tab, PO, l oral 19:52: Daily, # [place] enteric 00 30 tab, 2 coated Refill(s) tablet carvedilol Yes 3.125 mg = M emoria 3.125 mg 7-27 1 tab, PO, l oral tablet 19:52: BID, # 60 [place] 00 tab, 2 Refill(s) atorvastati Yes 80 mg = 1 M emoria n 80 mg 7-27 tab, PO, l oral tablet 19:52: Bedtime, # [place] 00 30 tab, 2 Refill(s) Aspirin 81 Yes 81 mg = 1 Me moria MG Enteric 7-27 tab, PO, l Coated 19:52: Daily, # [place] Tablet 00 120 tab, 1 Refill(s) losartan 50 Yes 100 mg = 2 [facility] mg oral 7-27 tab, PO, l tablet 19:52: Daily, # [place] 00 60 tab, 2 Refill(s) pantoprazol Yes 40 mg = 1 M emoria e 40 mg 7-27 tab, PO, l oral 19:52: Daily, # [place] enteric 00 30 tab, 2 coated Refill(s) tablet carvedilol Yes 3.125 mg = M emoria 3.125 mg 7-27 1 tab, PO, l oral tablet 19:52: BID, # 60 H [place] 00 tab, 2 Refill(s) atorvastati Yes 80 mg = 1 M emoria n 80 mg 7-27 tab, PO, l oral tablet 19:52: Bedtime, # [place] 00 30 tab, 2 Refill(s) Aspirin 81 Yes 81 mg = 1 Me moria MG Enteric 7-27 tab, PO, l Coated 19:52: Daily, # [place] Tablet 00 120 tab, 1 Refill(s) losartan 50 Yes 100 mg = 2 [facility] mg oral 7-27 tab, PO, l tablet 19:52: Daily, # [place] 00 60 tab, 2 Refill(s) pantoprazol Yes 40 mg = 1 M emoria e 40 mg 7-27 tab, PO, l oral 19:52: Daily, # [place] enteric 00 30 tab, 2 coated Refill(s) tablet carvedilol Yes 3.125 mg = M emoria 3.125 mg 7-27 1 tab, PO, l oral tablet 19:52: BID, # 60 H [place] 00 tab, 2 Refill(s) atorvastati Yes 80 mg = 1 M emoria n 80 mg 7-27 tab, PO, l oral tablet 19:52: Bedtime, # [place] 00 30 tab, 2 Refill(s) Aspirin 81 Yes 81 mg = 1 Me moria MG Enteric 7-27 tab, PO, l Coated 19:52: Daily, # [place] Tablet 00 120 tab, 1 Refill(s) losartan 50 Yes 100 mg = 2 [facility] mg oral 7-27 tab, PO, l tablet 19:52: Daily, # [place] 00 60 tab, 2 Refill(s) pantoprazol Yes 40 mg = 1 M emoria e 40 mg 7-27 tab, PO, l oral 19:52: Daily, # [place] enteric 00 30 tab, 2 coated Refill(s) tablet carvedilol Yes 3.125 mg = M emoria 3.125 mg 7-27 1 tab, PO, l oral tablet 19:52: BID, # 60 H [place] 00 tab, 2 Refill(s) atorvastati Yes 80 mg = 1 M emoria n 80 mg 7-27 tab, PO, l oral tablet 19:52: Bedtime, # [place] 00 30 tab, 2 Refill(s) Aspirin 81 Yes 81 mg = 1 Me moria MG Enteric 7-27 tab, PO, l Coated 19:52: Daily, # [place] Tablet 00 120 tab, 1 Refill(s) losartan 50 Yes 100 mg = 2 [facility] mg oral 7-27 tab, PO, l tablet 19:52: Daily, # [place] 00 60 tab, 2 Refill(s) pantoprazol Yes 40 mg = 1 M emoria e 40 mg 7-27 tab, PO, l oral 19:52: Daily, # [place] enteric 00 30 tab, 2 coated Refill(s) tablet carvedilol Yes 3.125 mg = M emoria 3.125 mg 7-27 1 tab, PO, l oral tablet 19:52: BID, # 60 [place] 00 tab, 2 Refill(s) atorvastati Yes 80 mg = 1 M emoria n 80 mg 7-27 tab, PO, l oral tablet 19:52: Bedtime, # [place] 00 30 tab, 2 Refill(s) Aspirin 81 Yes 81 mg = 1 Me moria MG Enteric 7-27 tab, PO, l Coated 19:52: Daily, # [place] Tablet 00 120 tab, 1 Refill(s) losartan 50 Yes 100 mg = 2 Memoria mg oral 7-27 tab, PO, l tablet 19:52: Daily, # [place] 00 60 tab, 2 Refill(s) pantoprazol Yes 40 mg = 1 M emoria e 40 mg 7-27 tab, PO, l oral 19:52: Daily, # [place] enteric 00 30 tab, 2 coated Refill(s) tablet carvedilol Yes 3.125 mg = M emoria 3.125 mg 7-27 1 tab, PO, l oral tablet 19:52: BID, # 60 H [place] 00 tab, 2 Refill(s) atorvastati Yes 80 mg = 1 M emoria n 80 mg 7-27 tab, PO, l oral tablet 19:52: Bedtime, # [place] 00 30 tab, 2 Refill(s) Aspirin 81 Yes 81 mg = 1 Me moria MG Enteric 7-27 tab, PO, l Coated 19:52: Daily, # [place] Tablet 00 120 tab, 1 Refill(s) losartan 50 Yes 100 mg = 2 Memoria mg oral 7-27 tab, PO, l tablet 19:52: Daily, # [place] 00 60 tab, 2 Refill(s) pantoprazol Yes 40 mg = 1 M emoria e 40 mg 7-27 tab, PO, l oral 19:52: Daily, # [place] enteric 00 30 tab, 2 coated Refill(s) tablet Magnesium No Notes: Memori a Oxide 10-16 (Same as: l 13:06: [place]-Ox [place] 00 400) Magnesium oxide 875vf=752k g elemental magnesium Dose=____m g magnesium oxide (___mg elemental magnesium) Magnesium No Notes: [facility]ori a Oxide 10-16 (Same as: l 13:06: [place]-Ox [place] 400) Magnesium oxide 235pl=742r g elemental magnesium Dose=____m g magnesium oxide (___mg elemental magnesium) Magnesium No Notes: [facility]ori a Oxide 10-16 (Same as: l 13:06: [place]-Ox [place] 400) Magnesium oxide 428dt=985u g elemental magnesium Dose=____m g magnesium oxide (___mg elemental magnesium) Magnesium No Notes: Memori a Oxide 10-16 (Same as: l 13:06: [place]- [place] 400) Magnesium oxide 510po=629n g elemental magnesium Dose=____m g magnesium oxide (___mg elemental magnesium) Magnesium No Notes: Memori a Oxide 10-16 (Same as: l 13:06: [place]-Ox [place] 400) Magnesium oxide 556au=556v g elemental magnesium Dose=____m g magnesium oxide (___mg elemental magnesium) Magnesium No Notes: [facility] a Oxide 10-16 (Same as: l 13:06: [place]- [place] 400) Magnesium oxide 744bn=827p g elemental magnesium Dose=____m g magnesium oxide (___mg elemental magnesium) Magnesium No Notes: [facility]ori a Oxide 10-16 (Same as: l 13:06: [place]-Ox [place] 400) Magnesium oxide 840fi=633n g elemental magnesium Dose=____m g magnesium oxide (___mg elemental magnesium) Magnesium No Notes: [facility]ori a Oxide 10-16 (Same as: l 13:06: [place]-Ox [place] 400) Magnesium oxide 125rr=308l g elemental magnesium Dose=____m g magnesium oxide (___mg elemental magnesium) Magnesium No Notes: [facility]ori a Oxide 10-16 (Same as: l 13:06: [place]-Ox [place] 00 400) Magnesium oxide 700fe=711p g elemental magnesium Dose=____m g magnesium oxide (___mg elemental magnesium) Magnesium No Notes: [facility] a Oxide 7-27 (Same as: l 13:06: Mag-Ox [place] 00 400) Magnesium oxide 486lj=828f g elemental magnesium Dose=____m g magnesium oxide (___mg elemental magnesium) Potassium No Notes: Memori a Chloride 7-27 (Same as: l 13:05: K-Dur 20) [place] 00 "Do Not Crush" With food and full glass of water Potassium No Notes: [facility] a Chloride 7-27 (Same as: l 13:05: K-Dur 20) [place] 00 "Do Not Crush" With food and full glass of water Potassium No Notes: [facility] a Chloride 7-27 (Same as: l 13:05: K-Dur 20) [place] 00 "Do Not Crush" With food and full glass of water Potassium No Notes: [facility] a Chloride 7-27 (Same as: l 13:05: K-Dur 20) [place] 00 "Do Not Crush" With food and full glass of water Potassium No Notes: [facility] a Chloride 7-27 (Same as: l 13:05: K-Dur 20) [place] 00 "Do Not Crush" With food and full glass of water Potassium No Notes: [facility] a Chloride 7-27 (Same as: l 13:05: K-Dur 20) [place] 00 "Do Not Crush" With food and full glass of water Potassium 0 No Notes: [facility] a Chloride 7-27 (Same as: l 13:05: K-Dur 20) [place] 00 "Do Not Crush" With food and full glass of water Potassium 0 No Notes: [facility] a Chloride 7-27 (Same as: l 13:05: K-Dur 20) [place] 00 "Do Not Crush" With food and full glass of water Potassium 0 No Notes: [facility] a Chloride 7-27 (Same as: l 13:05: K-Dur 20) [place] 00 "Do Not Crush" With food and full glass of water Potassium 0 No Notes: [facility] a Chloride 7-27 (Same as: l 13:05: K-Dur 20) [place] "Do Not Crush" With food and full glass of water heparin, No Notes: [facility] porcine 7-26 porcine l 21:00: heparin [place] 00 heparin, No Notes: [facility] porcine 7-26 porcine l 21:00: heparin [place] 00 heparin, No Notes: [facility] porcine 7-26 porcine l 21:00: heparin [place] heparin, No Notes: [facility] porcine 7-26 porcine l 21:00: heparin [place] heparin, No Notes: [facility] porcine 7-26 porcine l 21:00: heparin [place] 00 heparin, No Notes: [facility] porcine 7-26 porcine l 21:00: heparin [place] 00 heparin, No Notes: [facility] porcine 7-26 porcine l 21:00: heparin [place] 00 heparin, No Notes: [facility] porcine 7-26 porcine l 21:00: heparin [place] heparin, No Notes: [facility] porcine 7-26 porcine l 21:00: heparin [place] heparin, No Notes: [facility] porcine 7-26 porcine l 21:00: heparin [place] Losartan No Notes: [facility]oria 7-26 (Same as: l 14:00: Cozaar) [place] Losartan No Notes: [facility] 7-26 (Same as: l 14:00: Cozaar) [place] Losartan No Notes: [facility] 7-26 (Same as: l 14:00: Cozaar) [place] Losartan No Notes: [facility] 7-26 (Same as: l 14:00: Cozaar) [place] Losartan No Notes: [facility] 7-26 (Same as: l 14:00: Cozaar) Ben Losartan No Notes: [facility] 7-26 (Same as: l 14:00: Cozaar) [place] Losartan No Notes: [facility] 7-26 (Same as: l 14:00: Cozaar) [place] Losartan No Notes: [facility] 7-26 (Same as: l 14:00: Cozaar) [place] Losartan No Notes: [facility] 7-26 (Same as: l 14:00: Cozaar) [place] 00 Losartan No Notes: [facility] 7-26 (Same as: l 14:00: Cozaar) [place] 00 Potassium No Notes: Memori a Chloride 7-26 (Same as: l 10:42: K-Dur 20) [place] 00 "Do Not Crush" With food and full glass of water Potassium No Notes: [facility] a Chloride 7-26 (Same as: l 10:42: K-Dur 20) [place] 00 "Do Not Crush" With food and full glass of water Potassium No Notes: [facility] a Chloride 7-26 (Same as: l 10:42: K-Dur 20) [place] 00 "Do Not Crush" With food and full glass of water Potassium No Notes: [facility] a Chloride 7-26 (Same as: l 10:42: K-Dur 20) [place] 00 "Do Not Crush" With food and full glass of water Potassium No Notes: [facility] a Chloride 7-26 (Same as: l 10:42: K-Dur 20) [place] 00 "Do Not Crush" With food and full glass of water Potassium No Notes: [facility] a Chloride 7-26 (Same as: l 10:42: K-Dur 20) [place] 00 "Do Not Crush" With food and full glass of water Potassium No Notes: [facility] a Chloride 7-26 (Same as: l 10:42: K-Dur 20) [place] 00 "Do Not Crush" With food and full glass of water Potassium No Notes: [facility] a Chloride 7-26 (Same as: l 10:42: K-Dur 20) [place] 00 "Do Not Crush" With food and full glass of water Potassium No Notes: [facility] a Chloride 7-26 (Same as: l 10:42: K-Dur 20) [place] 00 "Do Not Crush" With food and full glass of water Potassium 0 No Notes: [facility] a Chloride 7-26 (Same as: l 10:42: K-Dur 20) [place] 00 "Do Not Crush" With food and full glass of water Fentanyl No Notes: [facility] 7-25 (Same as: l 21:54: Sublimaze) [place] Preservat mirela free. Versed No Notes: [facility]oria 7-25 (Same as: l 21:54: Versed) [place] 00 Fentanyl No Notes: [facility]oria 7-25 (Same as: l 21:54: Sublimaze) [place] Preservat mirela free. Versed No Notes: [facility] 7-25 (Same as: l 21:54: Versed) [place] 00 Fentanyl No Notes: [facility] 7-25 (Same as: l 21:54: Sublimaze) [place] Preservat mirela free. Versed No Notes: [facility] 7-25 (Same as: l 21:54: Versed) [place] 00 Fentanyl No Notes: [facility] 7-25 (Same as: l 21:54: Sublimaze) [place] Preservat mirela free. Versed No Notes: [facility] 7-25 (Same as: l 21:54: Versed) [place] 00 Fentanyl No Notes: [facility] 7-25 (Same as: l 21:54: Sublimaze) [place] Preservat mirela free. Versed No Notes: [facility]oria 7-25 (Same as: l 21:54: Versed) Ben 00 Fentanyl No Notes: [facility]oria 7-25 (Same as: l 21:54: Sublimaze) [place] Preservat mirela free. Versed No Notes: [facility]oria 7-25 (Same as: l 21:54: Versed) [place] 00 Fentanyl No Notes: [facility]oria 7-25 (Same as: l 21:54: Sublimaze) [place] Preservat mirela free. Versed No Notes: [facility] 7-25 (Same as: l 21:54: Versed) [place] 00 Fentanyl No Notes: [facility] 7-25 (Same as: l 21:54: Sublimaze) [place] Preservat mirela free. Versed No Notes: [facility] 7-25 (Same as: l 21:54: Versed) [place] 00 Fentanyl No Notes: [facility] 7-25 (Same as: l 21:54: Sublimaze) Preservat mirela free. Versed No Notes: [facility] 7-25 (Same as: l 21:54: Versed) Fentanyl No Notes: [facility] 7-25 (Same as: l 21:54: Sublimaze) Preservat mirela free. Versed No Notes: [facility] 7-25 (Same as: l 21:54: Versed) Fentanyl No Notes: [facility] 7-25 (Same as: l 20:51: Sublimaze) Preservat mirela free. Midazolam No Notes: Memori a 7-25 (Same as: l 20:51: Versed) Fentanyl No Notes: [facility] 7-25 (Same as: l 20:51: Sublimaze) Preservat mirela free. Midazolam No Notes: Memori a 7-25 (Same as: l 20:51: Versed) Fentanyl No Notes: [facility] 7-25 (Same as: l 20:51: Sublimaze) Preservat mirela free. Midazolam No Notes: Memori a 7-25 (Same as: l 20:51: Versed) Fentanyl No Notes: [facility] 7-25 (Same as: l 20:51: Sublimaze) Preservat mirela free. Midazolam No Notes: Memori a 7-25 (Same as: l 20:51: Versed) Fentanyl No Notes: [facility] 7-25 (Same as: l 20:51: Sublimaze) Preservat mirela free. Midazolam No Notes: Memori a 7-25 (Same as: l 20:51: Versed) Fentanyl No Notes: [facility] 7-25 (Same as: l 20:51: Sublimaze) Preservat mirela free. Midazolam No Notes: Memori a 7-25 (Same as: l 20:51: Versed) Fentanyl No Notes: [facility] 7-25 (Same as: l 20:51: Sublimaze) Preservat mirela free. Midazolam No Notes: Memori a 7-25 (Same as: l 20:51: Versed) Fentanyl No Notes: [facility] 7-25 (Same as: l 20:51: Sublimaze) Preservat mirela free. Midazolam No Notes: Memori a 7-25 (Same as: l 20:51: Versed) Fentanyl No Notes: [facility] 7-25 (Same as: l 20:51: Sublimaze) Preservat mirela free. Midazolam No Notes: Memori a 7-25 (Same as: l 20:51: Versed) Fentanyl No Notes: [facility] 7-25 (Same as: l 20:51: Sublimaze) Preservat mirela free. Midazolam No Notes: Memori a 7-25 (Same as: l 20:51: Versed) 00 Lidocaine No Notes: Memori a Hydrochlori 7-25 (Same as: l de 10 MG/ML 18:21: Xylocaine) [place] Injectable 00 Solution Lidocaine No Notes: [facility] a Hydrochlori 7-25 (Same as: l de 10 MG/ML 18:21: Xylocaine) [place] Injectable 00 Solution Lidocaine No Notes: Memori a Hydrochlori 7-25 (Same as: l de 10 MG/ML 18:21: Xylocaine) [place] Injectable 00 Solution Lidocaine No Notes: Memori a Hydrochlori 7-25 (Same as: l de 10 MG/ML 18:21: Xylocaine) [place] Injectable 00 Solution Lidocaine No Notes: Memori a Hydrochlori 7-25 (Same as: l de 10 MG/ML 18:21: Xylocaine) [place] Injectable 00 Solution Lidocaine No Notes: Memori a Hydrochlori 7-25 (Same as: l de 10 MG/ML 18:21: Xylocaine) [place] Injectable 00 Solution Lidocaine No Notes: [facility] a Hydrochlori 7-25 (Same as: l de 10 MG/ML 18:21: Xylocaine) [place] Injectable 00 Solution Lidocaine No Notes: Mem[facility] a Hydrochlori 7-25 (Same as: l de 10 MG/ML 18:21: Xylocaine) [place] Injectable 00 Solution Lidocaine No Notes: Memori a Hydrochlori 7-25 (Same as: l de 10 MG/ML 18:21: Xylocaine) [place] Injectable 00 Solution Lidocaine No Notes: [facility] a Hydrochlori 7-25 (Same as: l de 10 MG/ML 18:21: Xylocaine) [place] Injectable 00 Solution Vitamin B12 No Notes: [place] joana 7-25 (Same As: l 14:00: Vitamin [place] 00 B-12) Protonix No 40 mg, [facility] 7-25 Route: l 14:00: IVP, BID, Dosing Weight 75, kg, Start date: 10/14/13 9:00:00, Duration: 30 day, Stop date: 11/12/13 17:00:00 Plavix 2013-0 No 75 mg, [facility] 7-25 Route: PO, l 14:00: Drug form: [place] 00 TAB, Daily, Dosing Weight 75, kg, Start date: 10/14/13 9:00:00, Duration: 30 day, Stop date: 11/12/13 9:00:00 Losartan No Notes: [facility] 7-25 (Same as: l 14:00: Cozaar) carvedilol No Notes: Memor ia 7-25 Give with l 14:00: food. Ben 00 (Same As: Coreg) Vitamin B12 No Notes: Abraham joana 7-25 (Same As: l 14:00: Vitamin B-12) Protonix No 40 mg, [facility] 7-25 Route: l 14:00: IVP, BID, [place] 00 Dosing Weight 75, kg, Start date: 10/14/13 9:00:00, Duration: 30 day, Stop date: 11/12/13 17:00:00 Plavix 2013-0 No 75 mg, [facility] 7-25 Route: PO, l 14:00: Drug form: [place] 00 TAB, Daily, Dosing Weight 75, kg, Start date: 10/14/13 9:00:00, Duration: 30 day, Stop date: 11/12/13 9:00:00 Losartan No Notes: [facility] 7-25 (Same as: l 14:00: Cozaar) carvedilol No Notes: Memor ia 7-25 Give with l 14:00: food. (Same As: Coreg) Vitamin B12 No Notes: Abraham joana 7-25 (Same As: l 14:00: Vitamin [place] B-12) Protonix 2013-0 No 40 mg, [facility] 7-25 Route: l 14:00: IVP, BID, Dosing Weight 75, kg, Start date: 10/14/13 9:00:00, Duration: 30 day, Stop date: 11/12/13 17:00:00 Plavix 2013-0 No 75 mg, [facility] 7-25 Route: PO, l 14:00: Drug form: [place] 00 TAB, Daily, Dosing Weight 75, kg, Start date: 10/14/13 9:00:00, Duration: 30 day, Stop date: 11/12/13 9:00:00 Losartan No Notes: [facility] 7-25 (Same as: l 14:00: Cozaar) carvedilol No Notes: Memor ia 7-25 Give with l 14:00: food. (Same As: Coreg) Vitamin B12 No Notes: Abraham joana 7-25 (Same As: l 14:00: Vitamin [place] 00 B-12) Protonix 2013-0 No 40 mg, [facility] 7-25 Route: l 14:00: IVP, BID, [place] 00 Dosing Weight 75, kg, Start date: 10/14/13 9:00:00, Duration: 30 day, Stop date: 11/12/13 17:00:00 Plavix 2013-0 No 75 mg, [facility] 7-25 Route: PO, l 14:00: Drug form: [place] 00 TAB, Daily, Dosing Weight 75, kg, Start date: 10/14/13 9:00:00, Duration: 30 day, Stop date: 11/12/13 9:00:00 Losartan 0 No Notes: [facility] 7-25 (Same as: l 14:00: Cozaar) Ben 00 carvedilol No Notes: Memor ia 7-25 Give with l 14:00: food. (Same As: Coreg) Vitamin B12 No Notes: Abraham joana 7-25 (Same As: l 14:00: Vitamin [place] 00 B-12) Protonix No 40 mg, [facility]oria 7-25 Route: l 14:00: IVP, BID, [place] 00 Dosing Weight 75, kg, Start date: 10/14/13 9:00:00, Duration: 30 day, Stop date: 11/12/13 17:00:00 Plavix 2013-0 No 75 mg, [facility] 7-25 Route: PO, l 14:00: Drug form: [place] 00 TAB, Daily, Dosing Weight 75, kg, Start date: 10/14/13 9:00:00, Duration: 30 day, Stop date: 11/12/13 9:00:00 Losartan No Notes: [facility] 7-25 (Same as: l 14:00: Cozaar) carvedilol No Notes: Memor ia 7-25 Give with l 14:00: food. (Same As: Coreg) Vitamin B12 No Notes: Abraham joana 7-25 (Same As: l 14:00: Vitamin [place] 00 B-12) Protonix No 40 mg, [facility]oria 7-25 Route: l 14:00: IVP, BID, [place] 00 Dosing Weight 75, kg, Start date: 10/14/13 9:00:00, Duration: 30 day, Stop date: 11/12/13 17:00:00 Plavix 2013-0 No 75 mg, [facility] 7-25 Route: PO, l 14:00: Drug form: [place] 00 TAB, Daily, Dosing Weight 75, kg, Start date: 10/14/13 9:00:00, Duration: 30 day, Stop date: 11/12/13 9:00:00 Losartan No Notes: [facility] 7-25 (Same as: l 14:00: Cozaar) carvedilol No Notes: Memor ia 7-25 Give with l 14:00: food. Ben 00 (Same As: Coreg) Vitamin B12 No Notes: Abraham joana 7-25 (Same As: l 14:00: Vitamin [place] B-12) Protonix No 40 mg, [facility] 7-25 Route: l 14:00: IVP, BID, [place] 00 Dosing Weight 75, kg, Start date: 10/14/13 9:00:00, Duration: 30 day, Stop date: 11/12/13 17:00:00 Plavix 2013-0 No 75 mg, [facility] 7-25 Route: PO, l 14:00: Drug form: [place] 00 TAB, Daily, Dosing Weight 75, kg, Start date: 10/14/13 9:00:00, Duration: 30 day, Stop date: 11/12/13 9:00:00 Losartan No Notes: [facility] 7-25 (Same as: l 14:00: Cozaar) carvedilol No Notes: Memor ia 7-25 Give with l 14:00: food. (Same As: Coreg) Vitamin B12 No Notes: Abraham joana 7-25 (Same As: l 14:00: Vitamin [place] B-12) Protonix No 40 mg, [facility]oria 7-25 Route: l 14:00: IVP, BID, Dosing Weight 75, kg, Start date: 10/14/13 9:00:00, Duration: 30 day, Stop date: 11/12/13 17:00:00 Plavix 2013-0 No 75 mg, [facility] 7-25 Route: PO, l 14:00: Drug form: [place] 00 TAB, Daily, Dosing Weight 75, kg, Start date: 10/14/13 9:00:00, Duration: 30 day, Stop date: 11/12/13 9:00:00 Losartan No Notes: [facility] 7-25 (Same as: l 14:00: Cozaar) carvedilol No Notes: Memor ia 7-25 Give with l 14:00: food. (Same As: Coreg) Vitamin B12 No Notes: Abraham joana 7-25 (Same As: l 14:00: Vitamin [place] 00 B-12) Protonix 2014-0 No 40 mg, [facility]oria 7-25 Route: l 14:00: IVP, BID, Dosing Weight 75, kg, Start date: 10/14/13 9:00:00, Duration: 30 day, Stop date: 11/12/13 17:00:00 Plavix 2013-0 No 75 mg, [facility]oria 7-25 Route: PO, l 14:00: Drug form: [place] 00 TAB, Daily, Dosing Weight 75, kg, Start date: 10/14/13 9:00:00, Duration: 30 day, Stop date: 11/12/13 9:00:00 Losartan No Notes: [facility] 7-25 (Same as: l 14:00: Cozaar) carvedilol No Notes: Memor ia 7-25 Give with l 14:00: food. (Same As: Coreg) Vitamin B12 No Notes: Abraham joana 7-25 (Same As: l 14:00: Vitamin B-12) Protonix No 40 mg, [facility]oria 7-25 Route: l 14:00: IVP, BID, Dosing Weight 75, kg, Start date: 10/14/13 9:00:00, Duration: 30 day, Stop date: 11/12/13 17:00:00 Plavix 2013-0 No 75 mg, [facility] 7-25 Route: PO, l 14:00: Drug form: [place] 00 TAB, Daily, Dosing Weight 75, kg, Start date: 10/14/13 9:00:00, Duration: 30 day, Stop date: 11/12/13 9:00:00 Losartan No Notes: [facility] 7-25 (Same as: l 14:00: Cozaar) carvedilol No Notes: Memor ia 7-25 Give with l 14:00: food. (Same As: Coreg) Hydralazine No Notes: Abraham joana 7-25 (Same as: l 13:10: Apresoline ) Push over 5 minutes Hydralazine No Notes: Abraham joana 7-25 (Same as: l 13:10: Apresoline [place] 00 ) Push over 5 minutes Hydralazine No Notes: Abraham joana 7-25 (Same as: l 13:10: Apresoline [place] 00 ) Push over 5 minutes Hydralazine No Notes: Abraham joana 7-25 (Same as: l 13:10: Apresoline [place] 00 ) Push over 5 minutes Hydralazine No Notes: Abraham joana 7-25 (Same as: l 13:10: Apresoline [place] 00 ) Push over 5 minutes Hydralazine No Notes: Abraham joana 7-25 (Same as: l 13:10: Apresoline [place] 00 ) Push over 5 minutes Hydralazine No Notes: Abraham joana 7-25 (Same as: l 13:10: Apresoline [place] 00 ) Push over 5 minutes Hydralazine No Notes: Abraham joana 7-25 (Same as: l 13:10: Apresoline [place] 00 ) Push over 5 minutes Hydralazine No Notes: Abraham joana 7-25 (Same as: l 13:10: Apresoline [place] 00 ) Push over 5 minutes Hydralazine No Notes: Abraham joana 7-25 (Same as: l 13:10: Apresoline [place] 00 ) Push over 5 minutes Venofer No Notes: [facility]oria 7-25 Each 5ml l 12:59: contains [place] 00 100mg elemental iron. Mix with NS (Same as:Venofer ) Administer IV only. Venofer No Notes: [facility] 7-25 Each 5ml l 12:59: contains [place] 00 100mg elemental iron. Mix with NS (Same as:Venofer ) Administer IV only. Venofer No Notes: [facility] 7-25 Each 5ml l 12:59: contains [place] 00 100mg elemental iron. Mix with NS (Same as:Venofer ) Administer IV only. Venofer No Notes: [facility] 7-25 Each 5ml l 12:59: contains [place] 00 100mg elemental iron. Mix with NS (Same as:Venofer ) Administer IV only. Venofer No Notes: [facility] 7-25 Each 5ml l 12:59: contains [place] 00 100mg elemental iron. Mix with NS (Same as:Venofer ) Administer IV only. Venofer No Notes: [facility] 7-25 Each 5ml l 12:59: contains [place] 00 100mg elemental iron. Mix with NS (Same as:Venofer ) Administer IV only. Venofer No Notes: [facility] 7-25 Each 5ml l 12:59: contains [place] 00 100mg elemental iron. Mix with NS (Same as:Venofer ) Administer IV only. Venofer No Notes: [facility] 7-25 Each 5ml l 12:59: contains [place] 00 100mg elemental iron. Mix with NS (Same as:Venofer ) Administer IV only. Venofer No Notes: [facility] 7-25 Each 5ml l 12:59: contains [place] 00 100mg elemental iron. Mix with NS (Same as:Venofer ) Administer IV only. Venofer No Notes: [facility] 7-25 Each 5ml l 12:59: contains [place] 00 100mg elemental iron. Mix with NS (Same as:Venofer ) Administer IV only. Losartan No Notes: [facility] 7-25 (Same as: l 10:52: Cozaar) Losartan No Notes: Memoria 7-25 (Same as: l 10:52: Cozaar) [place] 00 Losartan No Notes: Memoria 7-25 (Same as: l 10:52: Cozaar) Losartan No Notes: Memoria 7-25 (Same as: l 10:52: Cozaar) Ben 00 Losartan No Notes: Memoria 7-25 (Same as: l 10:52: Cozaar) Ben 00 Losartan No Notes: Memoria 7-25 (Same as: l 10:52: Cozaar) [place] 00 Losartan No Notes: Memoria 7-25 (Same as: l 10:52: Cozaar) [place] 00 Losartan No Notes: Memoria 7-25 (Same as: l 10:52: Cozaar) Losartan No Notes: Memoria 7-25 (Same as: l 10:52: Cozaar) Losartan No Notes: Memoria 7-25 (Same as: l 10:52: Cozaar) Ben 00 Magnesium 2014-0 No 2 gm, 50 Abraham joana Sulfate 7-25 mL, Route: l 10:16: IVPB, Drug Ben 00 form: INJ, ONCE, Dosing Weight 75, kg, Start date: 10/14/13 5:16:00, Duration: 2 hr, Stop date: 10/14/13 5:16:00 Magnesium 2014-0 No 2 gm, 50 Abraham joana Sulfate 7-25 mL, Route: l 10:16: IVPB, Drug Ben 00 form: INJ, ONCE, Dosing Weight 75, kg, Start date: 10/14/13 5:16:00, Duration: 2 hr, Stop date: 10/14/13 5:16:00 Magnesium 2014-0 No 2 gm, 50 Abraham joana Sulfate 7-25 mL, Route: l 10:16: IVPB, Drug [place] 00 form: INJ, ONCE, Dosing Weight 75, kg, Start date: 10/14/13 5:16:00, Duration: 2 hr, Stop date: 10/14/13 5:16:00 Magnesium 2014-0 No 2 gm, 50 Abraham joana Sulfate 7-25 mL, Route: l 10:16: IVPB, Drug [place] 00 form: INJ, ONCE, Dosing Weight 75, kg, Start date: 10/14/13 5:16:00, Duration: 2 hr, Stop date: 10/14/13 5:16:00 Magnesium 2014-0 No 2 gm, 50 Abraham ojana Sulfate 7-25 mL, Route: l 10:16: IVPB, Drug Ben 00 form: INJ, ONCE, Dosing Weight 75, kg, Start date: 10/14/13 5:16:00, Duration: 2 hr, Stop date: 10/14/13 5:16:00 Magnesium 2014-0 No 2 gm, 50 Abraham joana Sulfate 7-25 mL, Route: l 10:16: IVPB, Drug [place] 00 form: INJ, ONCE, Dosing Weight 75, kg, Start date: 10/14/13 5:16:00, Duration: 2 hr, Stop date: 10/14/13 5:16:00 Magnesium 2014-0 No 2 gm, 50 Abraham joana Sulfate 7-25 mL, Route: l 10:16: IVPB, Drug [place] 00 form: INJ, ONCE, Dosing Weight 75, kg, Start date: 10/14/13 5:16:00, Duration: 2 hr, Stop date: 10/14/13 5:16:00 Magnesium 2014-0 No 2 gm, 50 Abraham joana Sulfate 7-25 mL, Route: l 10:16: IVPB, Drug [place] 00 form: INJ, ONCE, Dosing Weight 75, kg, Start date: 10/14/13 5:16:00, Duration: 2 hr, Stop date: 10/14/13 5:16:00 Magnesium 2014-0 No 2 gm, 50 Abraham joana Sulfate 7-25 mL, Route: l 10:16: IVPB, Drug [place] 00 form: INJ, ONCE, Dosing Weight 75, kg, Start date: 10/14/13 5:16:00, Duration: 2 hr, Stop date: 10/14/13 5:16:00 Magnesium 2014-0 No 2 gm, 50 Abraham joana Sulfate 7-25 mL, Route: l 10:16: IVPB, Drug [place] 00 form: INJ, ONCE, Dosing Weight 75, kg, Start date: 10/14/13 5:16:00, Duration: 2 hr, Stop date: 10/14/13 5:16:00 Benadryl No Notes: [facility] 7-25 (Same as: l 02:37: Benadryl) [place] Benadryl No Notes: Memoria 7-25 (Same as: l 02:37: Benadryl) [place] Benadryl No Notes: Memoria 7-25 (Same as: l 02:37: Benadryl) Ben Benadryl No Notes: Memoria 7-25 (Same as: l 02:37: Benadryl) [place] Benadryl No Notes: [facility]oria 7-25 (Same as: l 02:37: Benadryl) [place] Benadryl No Notes: Memoria 7-25 (Same as: l 02:37: Benadryl) [place] Benadryl No Notes: Memoria 7-25 (Same as: l 02:37: Benadryl) [place] Benadryl No Notes: Memoria 7- (Same as: l 02:37: Benadryl) [place] 00 Benadryl No Notes: Memoria 7- (Same as: l 02:37: Benadryl) [place] 00 Benadryl No Notes: Memoria 10-14 (Same as: l 02:37: Benadryl) Ben 00 metoprolol No Notes: Memor ia tartrate 10-14 (Same as: l 02:00: Lopressor) [place] 00 atorvastati No Notes: Abraham joana n 7 Same as l 02:00: Lipitor metoprolol No Notes: Memor ia tartrate 10-14 (Same as: l 02:00: Lopressor) atorvastati No Notes: Abraham joana n 7 Same as l 02:00: Lipitor metoprolol No Notes: Memor ia tartrate 10-14 (Same as: l 02:00: Lopressor) Ben 00 atorvastati No Notes: Abraham joana n 7 Same as l 02:00: Lipitor [place] 00 metoprolol No Notes: Memor ia tartrate 10-14 (Same as: l 02:00: Lopressor) atorvastati No Notes: Abraham joana n 7- Same as l 02:00: Lipitor [place] 00 metoprolol No Notes: Memor ia tartrate 10-14 (Same as: l 02:00: Lopressor) atorvastati No Notes: Abraham joana n 7- Same as l 02:00: Lipitor metoprolol No Notes: Memor ia tartrate 10-14 (Same as: l 02:00: Lopressor) Ben 00 atorvastati No Notes: Abraham joana n 7- Same as l 02:00: Lipitor [place] 00 metoprolol No Notes: Memor ia tartrate 10-14 (Same as: l 02:00: Lopressor) [place] 00 atorvastati No Notes: Abraham joana n 7-25 Same as l 02:00: Lipitor metoprolol No Notes: Memor ia tartrate 7-25 (Same as: l 02:00: Lopressor) atorvastati No Notes: Abraham joana n 7-25 Same as l 02:00: Lipitor metoprolol No Notes: Memor ia tartrate 7-25 (Same as: l 02:00: Lopressor) atorvastati No Notes: Abraham joana n 7-25 Same as l 02:00: Lipitor metoprolol No Notes: Memor ia tartrate 7-25 (Same as: l 02:00: Lopressor) atorvastati No Notes: Abraham joana n 7- Same as l 02:00: Lipitor Potassium No Notes: Memori a Chloride 20 7-25 (Same as: l MEQ 00:39: K-Dur 20) Ben Extended "Do Not Release Crush" Tablet With food and full glass of water Potassium No Notes: Memori a Chloride 20 7-25 (Same as: l MEQ 00:39: K-Dur 20) Extended "Do Not Release Crush" Tablet With food and full glass of water Potassium No Notes: Memori a Chloride 20 7-25 (Same as: l MEQ 00:39: K-Dur 20) Extended "Do Not Release Crush" Tablet With food and full glass of water Potassium No Notes: Memori a Chloride 20 7-25 (Same as: l MEQ 00:39: K-Dur 20) Ben Extended "Do Not Release Crush" Tablet With food and full glass of water Potassium No Notes: Memori a Chloride 20 7-25 (Same as: l MEQ 00:39: K-Dur 20) [place] Extended "Do Not Release Crush" Tablet With food and full glass of water Potassium No Notes: Memori a Chloride 20 7-25 (Same as: l MEQ 00:39: K-Dur 20) Ben Extended "Do Not Release Crush" Tablet With food and full glass of water Potassium No Notes: Memori a Chloride 20 7-25 (Same as: l MEQ 00:39: K-Dur 20) Ben Extended "Do Not Release Crush" Tablet With food and full glass of water Potassium No Notes: Memori a Chloride 20 7-25 (Same as: l MEQ 00:39: K-Dur 20) [place] Extended "Do Not Release Crush" Tablet With food and full glass of water Potassium No Notes: Memori a Chloride 20 7-25 (Same as: l MEQ 00:39: K-Dur 20) [place] Extended "Do Not Release Crush" Tablet With food and full glass of water Potassium No Notes: Memori a Chloride 20 7-25 (Same as: l MEQ 00:39: K-Dur 20) Extended "Do Not Release Crush" Tablet With food and full glass of water Tylenol No Notes: Do Memor ia 7-25 not exceed l 00:36: 4 gm/day. (Same as: Tylenol) Tylenol No Notes: Do Memor ia 7-25 not exceed l 00:36: 4 gm/day. (Same as: Tylenol) Tylenol No Notes: Do Memor ia 7-25 not exceed l 00:36: 4 gm/day. (Same as: Tylenol) Tylenol No Notes: Do Memor ia 7-25 not exceed l 00:36: 4 gm/day. (Same as: Tylenol) Tylenol No Notes: Do Memor ia 7-25 not exceed l 00:36: 4 gm/day. (Same as: Tylenol) Tylenol No Notes: Do Memor ia 7-25 not exceed l 00:36: 4 gm/day. (Same as: Tylenol) Tylenol No Notes: Do Memor ia 7-25 not exceed l 00:36: 4 gm/day. (Same as: Tylenol) Tylenol No Notes: Do Memor ia 7-25 not exceed l 00:36: 4 gm/day. (Same as: Tylenol) Tylenol No Notes: Do Memor ia 7-25 not exceed l 00:36: 4 gm/day. Ben 00 (Same as: Tylenol) Tylenol No Notes: Do Memor ia 7-25 not exceed l 00:36: 4 gm/day. [place] 00 (Same as: Tylenol) Docusate No Notes: Memoria Sodium 100 7-24 (Same as: l MG Oral 23:45: Colace) Ben Capsule 00 (Do Not [Colace] Crush) Docusate No Notes: [facility] Sodium 100 7-24 (Same as: l MG Oral 23:45: Colace) [place] Capsule 00 (Do Not [Colace] Crush) Docusate No Notes: [facility] Sodium 100 7-24 (Same as: l MG Oral 23:45: Colace) Ben Capsule 00 (Do Not [Colace] Crush) Docusate No Notes: [facility]oria Sodium 100 7-24 (Same as: l MG Oral 23:45: Colace) [place] Capsule 00 (Do Not [Colace] Crush) Docusate No Notes: [facility] Sodium 100 7-24 (Same as: l MG Oral 23:45: Colace) Ben Capsule 00 (Do Not [Colace] Crush) Docusate No Notes: [facility] Sodium 100 7-24 (Same as: l MG Oral 23:45: Colace) [place] Capsule 00 (Do Not [Colace] Crush) Docusate No Notes: [facility]oria Sodium 100 7-24 (Same as: l MG Oral 23:45: Colace) [place] Capsule 00 (Do Not [Colace] Crush) Docusate No Notes: [facility] Sodium 100 7-24 (Same as: l MG Oral 23:45: Colace) Ben Capsule 00 (Do Not [Colace] Crush) Docusate No Notes: [facility] Sodium 100 7-24 (Same as: l MG Oral 23:45: Colace) Ben Capsule 00 (Do Not [Colace] Crush) Docusate No Notes: [facility] Sodium 100 7-24 (Same as: l MG Oral 23:45: Colace) Ben Capsule 00 (Do Not [Colace] Crush) Protonix No Notes: For Mem oria 7-24 IV push l 22:38: reconstitu [place] 00 te with 10 ml 0.9% sodium chloride and push over 2 minutes. (Same as: Protonix) Protonix No Notes: For Mem oria 7-24 IV push l 22:38: reconstitu [place] 00 te with 10 ml 0.9% sodium chloride and push over 2 minutes. (Same as: Protonix) Protonix No Notes: For Mem oria 7-24 IV push l 22:38: reconstitu [place] 00 te with 10 ml 0.9% sodium chloride and push over 2 minutes. (Same as: Protonix) Protonix No Notes: For Mem oria 7-24 IV push l 22:38: reconstitu [place] 00 te with 10 ml 0.9% sodium chloride and push over 2 minutes. (Same as: Protonix) Protonix No Notes: For Mem oria 7-24 IV push l 22:38: reconstitu [place] 00 te with 10 ml 0.9% sodium chloride and push over 2 minutes. (Same as: Protonix) Protonix No Notes: For Mem oria 7-24 IV push l 22:38: reconstitu [place] 00 te with 10 ml 0.9% sodium chloride and push over 2 minutes. (Same as: Protonix) Protonix No Notes: For Mem oria 7-24 IV push l 22:38: reconstitu [place] 00 te with 10 ml 0.9% sodium chloride and push over 2 minutes. (Same as: Protonix) Protonix No Notes: For Mem oria 7-24 IV push l 22:38: reconstitu [place] 00 te with 10 ml 0.9% sodium chloride and push over 2 minutes. (Same as: Protonix) Protonix No Notes: For Mem oria 7-24 IV push l 22:38: reconstitu [place] 00 te with 10 ml 0.9% sodium chloride and push over 2 minutes. (Same as: Protonix) Protonix No Notes: For Mem oria 7-24 IV push l 22:38: reconstitu [place] 00 te with 10 ml 0.9% sodium chloride and push over 2 minutes. (Same as: Protonix) potassium No Notes: Memori a chloride + 7-24 MUST be l Sodium 22:30: Diluted [place] Chloride 00 before use 0.9% IV 480 (Same as: mL KCl) potassium No Notes: Memori a chloride + 7-24 MUST be l Sodium 22:30: Diluted [place] Chloride 00 before use 0.9% IV 480 (Same as: mL KCl) potassium No Notes: Memori a chloride + 7-24 MUST be l Sodium 22:30: Diluted [place] Chloride 00 before use 0.9% IV 480 (Same as: mL KCl) potassium No Notes: Memori a chloride + 7-24 MUST be l Sodium 22:30: Diluted [place] Chloride 00 before use 0.9% IV 480 (Same as: mL KCl) potassium No Notes: Memori a chloride + 7-24 MUST be l Sodium 22:30: Diluted [place] Chloride 00 before use 0.9% IV 480 (Same as: mL KCl) potassium No Notes: Memori a chloride + 7-24 MUST be l Sodium 22:30: Diluted [place] Chloride 00 before use 0.9% IV 480 (Same as: mL KCl) potassium No Notes: Memori a chloride + 7-24 MUST be l Sodium 22:30: Diluted [place] Chloride 00 before use 0.9% IV 480 (Same as: mL KCl) potassium No Notes: Memori a chloride + 7-24 MUST be l Sodium 22:30: Diluted [place] Chloride 00 before use 0.9% IV 480 (Same as: mL KCl) potassium No Notes: Memori a chloride + 7-24 MUST be l Sodium 22:30: Diluted [place] Chloride 00 before use 0.9% IV 480 (Same as: mL KCl) potassium No Notes: Memori a chloride + 7-24 MUST be l Sodium 22:30: Diluted [place] Chloride 00 before use 0.9% IV 480 (Same as: mL KCl) Hydralazine No Notes: Abraham joana 7-24 (Same as: l 21:44: Apresoline [place] 00 ) Push over 5 minutes Hydralazine No Notes: Abraham joana 7-24 (Same as: l 21:44: Apresoline [place] 00 ) Push over 5 minutes Hydralazine No Notes: Abraham joana 7-24 (Same as: l 21:44: Apresoline [place] 00 ) Push over 5 minutes Hydralazine No Notes: Abraham joana 7-24 (Same as: l 21:44: Apresoline [place] 00 ) Push over 5 minutes Hydralazine No Notes: Abraham joana 7-24 (Same as: l 21:44: Apresoline [place] 00 ) Push over 5 minutes Hydralazine No Notes: Abraham joana 7-24 (Same as: l 21:44: Apresoline [place] 00 ) Push over 5 minutes Hydralazine No Notes: Abraham joana 7-24 (Same as: l 21:44: Apresoline [place] 00 ) Push over 5 minutes Hydralazine No Notes: Abraham joana 7-24 (Same as: l 21:44: Apresoline [place] 00 ) Push over 5 minutes Hydralazine No Notes: Abraham joana 7-24 (Same as: l 21:44: Apresoline [place] 00 ) Push over 5 minutes Hydralazine No Notes: Abraham joana 7-24 (Same as: l 21:44: Apresoline [place] 00 ) Push over 5 minutes pantoprazol No Notes: Abraham joana e 7-24 Tablet l 21:30: should not [place] 00 be chewed or crushed. (Same as: Protonix) pantoprazol No Notes: Abraham joana e 7-24 Tablet l 21:30: should not [place] 00 be chewed or crushed. (Same as: Protonix) pantoprazol No Notes: Abraham joana e 7-24 Tablet l 21:30: should not [place] 00 be chewed or crushed. (Same as: Protonix) pantoprazol No Notes: Abraham joana e 7-24 Tablet l 21:30: should not [place] 00 be chewed or crushed. (Same as: Protonix) pantoprazol No Notes: Abraham joana e 7-24 Tablet l 21:30: should not [place] 00 be chewed or crushed. (Same as: Protonix) pantoprazol No Notes: Abraham joana e 7-24 Tablet l 21:30: should not [place] 00 be chewed or crushed. (Same as: Protonix) pantoprazol No Notes: Abraham joana e 7-24 Tablet l 21:30: should not [place] 00 be chewed or crushed. (Same as: Protonix) pantoprazol No Notes: Abraham joana e 7-24 Tablet l 21:30: should not [place] 00 be chewed or crushed. (Same as: Protonix) pantoprazol No Notes: Abraham joana e 7-24 Tablet l 21:30: should not [place] 00 be chewed or crushed. (Same as: Protonix) pantoprazol No Notes: Abraham joana e 7-24 Tablet l 21:30: should not [place] 00 be chewed or crushed. (Same as: Protonix) Losartan No Notes: Memoria 7-24 (Same as: l 21:08: Cozaar) [place] Losartan No Notes: Memoria 7-24 (Same as: l 21:08: Cozaar) Ben 00 Losartan No Notes: Memoria 7-24 (Same as: l 21:08: Cozaar) [place] 00 Losartan No Notes: Memoria 7-24 (Same as: l 21:08: Cozaar) [place] Losartan No Notes: Memoria 7-24 (Same as: l 21:08: Cozaar) [place] Losartan No Notes: [facility]oria 7-24 (Same as: l 21:08: Cozaar) [place] Losartan No Notes: Memoria 7-24 (Same as: l 21:08: Cozaar) [place] Losartan No Notes: Memoria 7-24 (Same as: l 21:08: Cozaar) [place] Losartan No Notes: Memoria 7-24 (Same as: l 21:08: Cozaar) [place] 00 Losartan No Notes: Memoria 7-24 (Same as: l 21:08: Cozaar) Ben potassium No Notes: Memori a chloride 7-24 (Same as: l 21:00: KCL) [place] 00 Infuse no faster than 10 mEq/hr if given peripheral ly. potassium No Notes: Memori a chloride 7-24 (Same as: l 21:00: KCL) [place] 00 Infuse no faster than 10 mEq/hr if given peripheral ly. potassium No Notes: Memori a chloride 7-24 (Same as: l 21:00: KCL) [place] 00 Infuse no faster than 10 mEq/hr if given peripheral ly. potassium No Notes: Memori a chloride 7-24 (Same as: l 21:00: KCL) [place] 00 Infuse no faster than 10 mEq/hr if given peripheral ly. potassium No Notes: Memori a chloride 7-24 (Same as: l 21:00: KCL) [place] 00 Infuse no faster than 10 mEq/hr if given peripheral ly. potassium No Notes: Memori a chloride 7-24 (Same as: l 21:00: KCL) Infuse no faster than 10 mEq/hr if given peripheral ly. potassium No Notes: Memori a chloride 7-24 (Same as: l 21:00: KCL) [place] 00 Infuse no faster than 10 mEq/hr if given peripheral ly. potassium No Notes: Memori a chloride 7-24 (Same as: l 21:00: KCL) Infuse no faster than 10 mEq/hr if given peripheral ly. potassium No Notes: Memori a chloride 7-24 (Same as: l 21:00: KCL) Infuse no faster than 10 mEq/hr if given peripheral ly. potassium No Notes: Memori a chloride 7-24 (Same as: l 21:00: KCL) [place] 00 Infuse no faster than 10 mEq/hr if given peripheral ly. Aspirin / No Notes: Do Mem oria Calcium 7-24 not crush l Carbonate 20:48: or chew. Herm kendra (Same As: Ecotrin) Aspirin / No Notes: Do Mem oria Calcium 7-24 not crush l Carbonate 20:48: or chew. Herm kendra (Same As: Ecotrin) Aspirin / No Notes: Do Mem oria Calcium 7-24 not crush l Carbonate 20:48: or chew. Herm kendra 00 (Same As: Ecotrin) Aspirin / No Notes: Do Mem oria Calcium 7-24 not crush l Carbonate 20:48: or chew. Herm kendar 00 (Same As: Ecotrin) Aspirin / No Notes: Do Mem oria Calcium 7-24 not crush l Carbonate 20:48: or chew. Herm kendra 00 (Same As: Ecotrin) Aspirin / No Notes: Do Mem oria Calcium 7-24 not crush l Carbonate 20:48: or chew. Herm kendra 00 (Same As: Ecotrin) Aspirin / No Notes: Do Mem oria Calcium 7-24 not crush l Carbonate 20:48: or chew. Herm kendra (Same As: Ecotrin) Aspirin / No Notes: Do Mem oria Calcium 7-24 not crush l Carbonate 20:48: or chew. Herm kendra (Same As: Ecotrin) Aspirin / No Notes: Do Mem oria Calcium 7-24 not crush l Carbonate 20:48: or chew. Herm kendra (Same As: Ecotrin) Aspirin / No Notes: Do Mem oria Calcium 7-24 not crush l Carbonate 20:48: or chew. Herm kendra (Same As: Ecotrin) Potassium No 40 mEq, Memor ia Chloride 7-24 Route: IV, l 20:36: ONCE, Dosing Weight 75, kg, Start date: 10/13/13 15:36:00, Stop date: 10/13/13 15:36:00 Potassium 2013-0 No 40 mEq, Memor ia Chloride 7-24 Route: IV, l 20:36: ONCE, Dosing Weight 75, kg, Start date: 10/13/13 15:36:00, Stop date: 10/13/13 15:36:00 Potassium 2013-0 No 40 mEq, Mem[facility] ia Chloride 7-24 Route: IV, l 20:36: ONCE, Dosing Weight 75, kg, Start date: 10/13/13 15:36:00, Stop date: 10/13/13 15:36:00 Potassium 2013-0 No 40 mEq, Mem[facility] ia Chloride 7-24 Route: IV, l 20:36: ONCE, Dosing Weight 75, kg, Start date: 10/13/13 15:36:00, Stop date: 10/13/13 15:36:00 Potassium 2014-0 No 40 mEq, Memor ia Chloride 7- Route: IV, l 20:36: ONCE, Dosing Weight 75, kg, Start date: 10/13/13 15:36:00, Stop date: 10/13/13 15:36:00 Potassium 2013-0 No 40 mEq, Mem[facility] ia Chloride 7 Route: IV, l 20:36: ONCE, Dosing Weight 75, kg, Start date: 10/13/13 15:36:00, Stop date: 10/13/13 15:36:00 Potassium 2013-0 No 40 mEq, Mem[facility] ia Chloride 7- Route: IV, l 20:36: ONCE, Dosing Weight 75, kg, Start date: 10/13/13 15:36:00, Stop date: 10/13/13 15:36:00 Potassium 2013-0 No 40 mEq, Mem[facility] Chloride 7 Route: IV, l 20:36: ONCE, Dosing Weight 75, kg, Start date: 10/13/13 15:36:00, Stop date: 10/13/13 15:36:00 Potassium 2013-0 No 40 mEq, Mem[facility] Chloride 7 Route: IV, l 20:36: ONCE, Dosing Weight 75, kg, Start date: 10/13/13 15:36:00, Stop date: 10/13/13 15:36:00 Potassium 2013-0 No 40 mEq, [facility] ia Chloride 10-13 Route: IV, l 20:36: ONCE, Dosing Weight 75, kg, Start date: 10/13/13 15:36:00, Stop date: 10/13/13 15:36:00 heparin 2013-0 No Route: Memoria sodium, 7-24 IVP, PRN, l porcine 20:33: 1,700 Ben 1000 UNT/ML 00 unit, 1.7 Injectable mL, Drug Solution form: INJ, PRN, Heparin Protocol, Start date: 10/13/13 15:33:00 Stop date: 11/12/13 15:32:00, 30 day heparin 2013-0 No 500 mL, Memoria additive 7-24 Rate: l 25,000 unit 20:33: 13.75 Tamela nn [12 00 ml/hr, unit/kg/hr] Infuse + Premix over: 36.4 Diluent hr, Route: Dextrose 5% IV, Dosing 500 mL Weight 57.3 kg, Total Volume: 500 mL, Start date: 10/13/13 15:33:00, Duration: 30 day, Stop date: 11/12/13 15:32:00 heparin No 3,400 Memoria sodium, 7-24 unit, l porcine 20:33: Route: IV, Herm kendra 5000 UNT/ML 00 Drug form: Injectable INJ, ONCE, Solution Dosing Weight 75, kg, Priority: STAT, Start date: 10/13/13 15:33:00, Stop date: 10/13/13 15:33:00 heparin No Route: Memoria sodium, 7-24 IVP, PRN, l porcine 20:33: 1,700 [place] 1000 UNT/ML 00 unit, 1.7 Injectable mL, Drug Solution form: INJ, PRN, Heparin Protocol, Start date: 10/13/13 15:33:00 Stop date: 11/12/13 15:32:00, 30 day heparin No 500 mL, Memoria additive 7-24 Rate: l 25,000 unit 20:33: 13.75 Tamela nn [12 00 ml/hr, unit/kg/hr] Infuse + Premix over: 36.4 Diluent hr, Route: Dextrose 5% IV, Dosing 500 mL Weight 57.3 kg, Total Volume: 500 mL, Start date: 10/13/13 15:33:00, Duration: 30 day, Stop date: 11/12/13 15:32:00 heparin No 3,400 Memoria sodium, 7-24 unit, l porcine 20:33: Route: IV, Herm kendra 5000 UNT/ML 00 Drug form: Injectable INJ, ONCE, Solution Dosing Weight 75, kg, Priority: STAT, Start date: 10/13/13 15:33:00, Stop date: 10/13/13 15:33:00 heparin No Route: Memoria sodium, 7-24 IVP, PRN, l porcine 20:33: 1,700 Ben 1000 UNT/ML 00 unit, 1.7 Injectable mL, Drug Solution form: INJ, PRN, Heparin Protocol, Start date: 10/13/13 15:33:00 Stop date: 11/12/13 15:32:00, 30 day heparin No 500 mL, Memoria additive 7-24 Rate: l 25,000 unit 20:33: 13.75 Tamela nn [12 00 ml/hr, unit/kg/hr] Infuse + Premix over: 36.4 Diluent hr, Route: Dextrose 5% IV, Dosing 500 mL Weight 57.3 kg, Total Volume: 500 mL, Start date: 10/13/13 15:33:00, Duration: 30 day, Stop date: 11/12/13 15:32:00 heparin No 3,400 Memoria sodium, 7-24 unit, l porcine 20:33: Route: IV, Herm kendra 5000 UNT/ML 00 Drug form: Injectable INJ, ONCE, Solution Dosing Weight 75, kg, Priority: STAT, Start date: 10/13/13 15:33:00, Stop date: 10/13/13 15:33:00 heparin No Route: Memoria sodium, 7-24 IVP, PRN, l porcine 20:33: 1,700 Ben 1000 UNT/ML 00 unit, 1.7 Injectable mL, Drug Solution form: INJ, PRN, Heparin Protocol, Start date: 10/13/13 15:33:00 Stop date: 11/12/13 15:32:00, 30 day heparin No 500 mL, Memoria additive 7-24 Rate: l 25,000 unit 20:33: 13.75 Tamela nn [12 00 ml/hr, unit/kg/hr] Infuse + Premix over: 36.4 Diluent hr, Route: Dextrose 5% IV, Dosing 500 mL Weight 57.3 kg, Total Volume: 500 mL, Start date: 10/13/13 15:33:00, Duration: 30 day, Stop date: 11/12/13 15:32:00 heparin No 3,400 Memoria sodium, 7-24 unit, l porcine 20:33: Route: IV, Herm kendra 5000 UNT/ML 00 Drug form: Injectable INJ, ONCE, Solution Dosing Weight 75, kg, Priority: STAT, Start date: 10/13/13 15:33:00, Stop date: 10/13/13 15:33:00 heparin No Route: Memoria sodium, 7-24 IVP, PRN, l porcine 20:33: 1,700 [place] 1000 UNT/ML 00 unit, 1.7 Injectable mL, Drug Solution form: INJ, PRN, Heparin Protocol, Start date: 10/13/13 15:33:00 Stop date: 11/12/13 15:32:00, 30 day heparin No 500 mL, Memoria additive 7-24 Rate: l 25,000 unit 20:33: 13.75 Tamela nn [12 00 ml/hr, unit/kg/hr] Infuse + Premix over: 36.4 Diluent hr, Route: Dextrose 5% IV, Dosing 500 mL Weight 57.3 kg, Total Volume: 500 mL, Start date: 10/13/13 15:33:00, Duration: 30 day, Stop date: 11/12/13 15:32:00 heparin No 3,400 Memoria sodium, 7-24 unit, l porcine 20:33: Route: IV, Herm kendra 5000 UNT/ML 00 Drug form: Injectable INJ, ONCE, Solution Dosing Weight 75, kg, Priority: STAT, Start date: 10/13/13 15:33:00, Stop date: 10/13/13 15:33:00 heparin No Route: Memoria sodium, 7-24 IVP, PRN, l porcine 20:33: 1,700 Ben 1000 UNT/ML 00 unit, 1.7 Injectable mL, Drug Solution form: INJ, PRN, Heparin Protocol, Start date: 10/13/13 15:33:00 Stop date: 11/12/13 15:32:00, 30 day heparin No 500 mL, Memoria additive 7-24 Rate: l 25,000 unit 20:33: 13.75 Taemla nn [12 00 ml/hr, unit/kg/hr] Infuse + Premix over: 36.4 Diluent hr, Route: Dextrose 5% IV, Dosing 500 mL Weight 57.3 kg, Total Volume: 500 mL, Start date: 10/13/13 15:33:00, Duration: 30 day, Stop date: 11/12/13 15:32:00 heparin No 3,400 Memoria sodium, 7-24 unit, l porcine 20:33: Route: IV, Herm kendra 5000 UNT/ML 00 Drug form: Injectable INJ, ONCE, Solution Dosing Weight 75, kg, Priority: STAT, Start date: 10/13/13 15:33:00, Stop date: 10/13/13 15:33:00 heparin No Route: Memoria sodium, 7-24 IVP, PRN, l porcine 20:33: 1,700 [place] 1000 UNT/ML 00 unit, 1.7 Injectable mL, Drug Solution form: INJ, PRN, Heparin Protocol, Start date: 10/13/13 15:33:00 Stop date: 11/12/13 15:32:00, 30 day heparin No 500 mL, Memoria additive 7-24 Rate: l 25,000 unit 20:33: 13.75 Tamela nn [12 00 ml/hr, unit/kg/hr] Infuse + Premix over: 36.4 Diluent hr, Route: Dextrose 5% IV, Dosing 500 mL Weight 57.3 kg, Total Volume: 500 mL, Start date: 10/13/13 15:33:00, Duration: 30 day, Stop date: 11/12/13 15:32:00 heparin No 3,400 Memoria sodium, 7-24 unit, l porcine 20:33: Route: IV, Herm kendra 5000 UNT/ML 00 Drug form: Injectable INJ, ONCE, Solution Dosing Weight 75, kg, Priority: STAT, Start date: 10/13/13 15:33:00, Stop date: 10/13/13 15:33:00 heparin No Route: Memoria sodium, 7-24 IVP, PRN, l porcine 20:33: 1,700 Ben 1000 UNT/ML 00 unit, 1.7 Injectable mL, Drug Solution form: INJ, PRN, Heparin Protocol, Start date: 10/13/13 15:33:00 Stop date: 11/12/13 15:32:00, 30 day heparin No 500 mL, Memoria additive 7-24 Rate: l 25,000 unit 20:33: 13.75 Tamela nn [12 00 ml/hr, unit/kg/hr] Infuse + Premix over: 36.4 Diluent hr, Route: Dextrose 5% IV, Dosing 500 mL Weight 57.3 kg, Total Volume: 500 mL, Start date: 10/13/13 15:33:00, Duration: 30 day, Stop date: 11/12/13 15:32:00 heparin No 3,400 Memoria sodium, 7-24 unit, l porcine 20:33: Route: IV, Herm kendra 5000 UNT/ML 00 Drug form: Injectable INJ, ONCE, Solution Dosing Weight 75, kg, Priority: STAT, Start date: 10/13/13 15:33:00, Stop date: 10/13/13 15:33:00 heparin No Route: Memoria sodium, 7-24 IVP, PRN, l porcine 20:33: 1,700 [place] 1000 UNT/ML 00 unit, 1.7 Injectable mL, Drug Solution form: INJ, PRN, Heparin Protocol, Start date: 10/13/13 15:33:00 Stop date: 11/12/13 15:32:00, 30 day heparin No 500 mL, Memoria additive 7-24 Rate: l 25,000 unit 20:33: 13.75 Tamela nn [12 00 ml/hr, unit/kg/hr] Infuse + Premix over: 36.4 Diluent hr, Route: Dextrose 5% IV, Dosing 500 mL Weight 57.3 kg, Total Volume: 500 mL, Start date: 10/13/13 15:33:00, Duration: 30 day, Stop date: 11/12/13 15:32:00 heparin No 3,400 Memoria sodium, 7-24 unit, l porcine 20:33: Route: IV, Herm kendra 5000 UNT/ML 00 Drug form: Injectable INJ, ONCE, Solution Dosing Weight 75, kg, Priority: STAT, Start date: 10/13/13 15:33:00, Stop date: 10/13/13 15:33:00 heparin No Route: Memoria sodium, 7-24 IVP, PRN, l porcine 20:33: 1,700 Ben 1000 UNT/ML 00 unit, 1.7 Injectable mL, Drug Solution form: INJ, PRN, Heparin Protocol, Start date: 10/13/13 15:33:00 Stop date: 11/12/13 15:32:00, 30 day heparin No 500 mL, Memoria additive 7-24 Rate: l 25,000 unit 20:33: 13.75 Tamela nn [12 00 ml/hr, unit/kg/hr] Infuse + Premix over: 36.4 Diluent hr, Route: Dextrose 5% IV, Dosing 500 mL Weight 57.3 kg, Total Volume: 500 mL, Start date: 10/13/13 15:33:00, Duration: 30 day, Stop date: 11/12/13 15:32:00 heparin No 3,400 Memoria sodium, 7-24 unit, l porcine 20:33: Route: IV, Herm kendra 5000 UNT/ML 00 Drug form: Injectable INJ, ONCE, Solution Dosing Weight 75, kg, Priority: STAT, Start date: 10/13/13 15:33:00, Stop date: 10/13/13 15:33:00 Metoprolol No Notes: Memor ia 7-24 (Same as: l 17:00: Lopressor) Ben 00 Push over 2 minutes Metoprolol No Notes: Memor ia 7-24 (Same as: l 17:00: Lopressor) [place] 00 Push over 2 minutes Metoprolol No Notes: Memor ia 7-24 (Same as: l 17:00: Lopressor) Ben 00 Push over 2 minutes Metoprolol No Notes: Memor ia 7-24 (Same as: l 17:00: Lopressor) Ben 00 Push over 2 minutes Metoprolol No Notes: Memor ia 7-24 (Same as: l 17:00: Lopressor) [place] 00 Push over 2 minutes Metoprolol No Notes: Memor ia 7-24 (Same as: l 17:00: Lopressor) [place] 00 Push over 2 minutes Metoprolol No Notes: Memor ia 7-24 (Same as: l 17:00: Lopressor) [place] 00 Push over 2 minutes Metoprolol No Notes: Memor ia 7-24 (Same as: l 17:00: Lopressor) Ben 00 Push over 2 minutes Metoprolol No Notes: Memor ia 7-24 (Same as: l 17:00: Lopressor) Ben 00 Push over 2 minutes Metoprolol No Notes: Memor ia 7-24 (Same as: l 17:00: Lopressor) [place] 00 Push over 2 minutes Lasix No Notes: Memoria 7-24 (Same as: l 16:00: Lasix) Ben 00 May cause GI upset. Give with food or milk. Losartan No Notes: Memoria 7-24 (Same as: l 16:00: Cozaar) Ben 00 Lasix No Notes: Memoria 7-24 (Same as: l 16:00: Lasix) [place] 00 May cause GI upset. Give with food or milk. Losartan No Notes: Memoria 7-24 (Same as: l 16:00: Cozaar) [place] 00 Lasix No Notes: Memoria 7-24 (Same as: l 16:00: Lasix) [place] 00 May cause GI upset. Give with food or milk. Losartan No Notes: Memoria 7-24 (Same as: l 16:00: Cozaar) Ben 00 Lasix No Notes: Memoria 7-24 (Same as: l 16:00: Lasix) [place] 00 May cause GI upset. Give with food or milk. Losartan No Notes: Memoria 7-24 (Same as: l 16:00: Cozaar) Ben 00 Lasix No Notes: Memoria 7-24 (Same as: l 16:00: Lasix) Ben 00 May cause GI upset. Give with food or milk. Losartan No Notes: Memoria 7-24 (Same as: l 16:00: Cozaar) [place] 00 Lasix No Notes: Memoria 7-24 (Same as: l 16:00: Lasix) [place] 00 May cause GI upset. Give with food or milk. Losartan No Notes: Memoria 7-24 (Same as: l 16:00: Cozaar) Ben 00 Lasix No Notes: Memoria 7-24 (Same as: l 16:00: Lasix) Ben 00 May cause GI upset. Give with food or milk. Losartan No Notes: Memoria 7-24 (Same as: l 16:00: Cozaar) Ben 00 Lasix No Notes: Memoria 7-24 (Same as: l 16:00: Lasix) [place] 00 May cause GI upset. Give with food or milk. Losartan No Notes: Memoria 7-24 (Same as: l 16:00: Cozaar) Ben 00 Lasix No Notes: [facility]oria 7-24 (Same as: l 16:00: Lasix) [place] 00 May cause GI upset. Give with food or milk. Losartan No Notes: Memoria 7-24 (Same as: l 16:00: Cozaar) [place] 00 Lasix No Notes: Memoria 7-24 (Same as: l 16:00: Lasix) Ben 00 May cause GI upset. Give with food or milk. Losartan No Notes: Memoria 7-24 (Same as: l 16:00: Cozaar) Ben 00 heparin No Route: Memoria sodium, 7-24 IVP, PRN, l porcine 14:35: 3,400 [place] 1000 UNT/ML 00 unit, 3.4 Injectable mL, Drug Solution form: INJ, PRN, Heparin Protocol, Start date: 10/13/13 9:35:00 Stop date: 11/12/13 9:34:00, 30 day heparin No 500 mL, Memoria additive 7-24 Rate: l 25,000 unit 14:35: 13.75 Tamela nn [12 00 ml/hr, unit/kg/hr] Infuse + Premix over: 36.4 Diluent hr, Route: Dextrose 5% IV, Dosing 500 mL Weight 57.3 kg, Total Volume: 500 mL, Start date: 10/13/13 9:35:00, Duration: 30 day, Stop date: 11/12/13 9:34:00 heparin No 3,400 Memoria sodium, 7-24 unit, 3.4 l porcine 14:35: mL, Route: Herm kendra 5000 UNT/ML 00 IV, Drug Injectable form: INJ, Solution ONCE, Dosing Weight 75, kg, Priority: STAT, Start date: 10/13/13 9:35:00, Stop date: 10/13/13 9:35:00 heparin No Route: Memoria sodium, 7-24 IVP, PRN, l porcine 14:35: 3,400 [place] 1000 UNT/ML 00 unit, 3.4 Injectable mL, Drug Solution form: INJ, PRN, Heparin Protocol, Start date: 10/13/13 9:35:00 Stop date: 11/12/13 9:34:00, 30 day heparin No 500 mL, Memoria additive 7-24 Rate: l 25,000 unit 14:35: 13.75 Tamela nn [12 00 ml/hr, unit/kg/hr] Infuse + Premix over: 36.4 Diluent hr, Route: Dextrose 5% IV, Dosing 500 mL Weight 57.3 kg, Total Volume: 500 mL, Start date: 10/13/13 9:35:00, Duration: 30 day, Stop date: 11/12/13 9:34:00 heparin No 3,400 Memoria sodium, 7-24 unit, 3.4 l porcine 14:35: mL, Route: Herm kendra 5000 UNT/ML 00 IV, Drug Injectable form: INJ, Solution ONCE, Dosing Weight 75, kg, Priority: STAT, Start date: 10/13/13 9:35:00, Stop date: 10/13/13 9:35:00 heparin No Route: Memoria sodium, 7-24 IVP, PRN, l porcine 14:35: 3,400 [place] 1000 UNT/ML 00 unit, 3.4 Injectable mL, Drug Solution form: INJ, PRN, Heparin Protocol, Start date: 10/13/13 9:35:00 Stop date: 11/12/13 9:34:00, 30 day heparin No 500 mL, Memoria additive 7-24 Rate: l 25,000 unit 14:35: 13.75 Tamela nn [12 00 ml/hr, unit/kg/hr] Infuse + Premix over: 36.4 Diluent hr, Route: Dextrose 5% IV, Dosing 500 mL Weight 57.3 kg, Total Volume: 500 mL, Start date: 10/13/13 9:35:00, Duration: 30 day, Stop date: 11/12/13 9:34:00 heparin No 3,400 Memoria sodium, 7-24 unit, 3.4 l porcine 14:35: mL, Route: Herm kendra 5000 UNT/ML 00 IV, Drug Injectable form: INJ, Solution ONCE, Dosing Weight 75, kg, Priority: STAT, Start date: 10/13/13 9:35:00, Stop date: 10/13/13 9:35:00 heparin No Route: Memoria sodium, 7-24 IVP, PRN, l porcine 14:35: 3,400 Ben 1000 UNT/ML 00 unit, 3.4 Injectable mL, Drug Solution form: INJ, PRN, Heparin Protocol, Start date: 10/13/13 9:35:00 Stop date: 11/12/13 9:34:00, 30 day heparin No 500 mL, Memoria additive 7-24 Rate: l 25,000 unit 14:35: 13.75 Tamela nn [12 00 ml/hr, unit/kg/hr] Infuse + Premix over: 36.4 Diluent hr, Route: Dextrose 5% IV, Dosing 500 mL Weight 57.3 kg, Total Volume: 500 mL, Start date: 10/13/13 9:35:00, Duration: 30 day, Stop date: 11/12/13 9:34:00 heparin No 3,400 Memoria sodium, 7-24 unit, 3.4 l porcine 14:35: mL, Route: Herm kendra 5000 UNT/ML 00 IV, Drug Injectable form: INJ, Solution ONCE, Dosing Weight 75, kg, Priority: STAT, Start date: 10/13/13 9:35:00, Stop date: 10/13/13 9:35:00 heparin No Route: Memoria sodium, 7-24 IVP, PRN, l porcine 14:35: 3,400 Ben 1000 UNT/ML 00 unit, 3.4 Injectable mL, Drug Solution form: INJ, PRN, Heparin Protocol, Start date: 10/13/13 9:35:00 Stop date: 11/12/13 9:34:00, 30 day heparin No 500 mL, Memoria additive 7-24 Rate: l 25,000 unit 14:35: 13.75 Tamela nn [12 00 ml/hr, unit/kg/hr] Infuse + Premix over: 36.4 Diluent hr, Route: Dextrose 5% IV, Dosing 500 mL Weight 57.3 kg, Total Volume: 500 mL, Start date: 10/13/13 9:35:00, Duration: 30 day, Stop date: 11/12/13 9:34:00 heparin No 3,400 Memoria sodium, 7-24 unit, 3.4 l porcine 14:35: mL, Route: Herm kendra 5000 UNT/ML 00 IV, Drug Injectable form: INJ, Solution ONCE, Dosing Weight 75, kg, Priority: STAT, Start date: 10/13/13 9:35:00, Stop date: 10/13/13 9:35:00 heparin No Route: Memoria sodium, 7-24 IVP, PRN, l porcine 14:35: 3,400 [place] 1000 UNT/ML 00 unit, 3.4 Injectable mL, Drug Solution form: INJ, PRN, Heparin Protocol, Start date: 10/13/13 9:35:00 Stop date: 11/12/13 9:34:00, 30 day heparin No 500 mL, Memoria additive 7-24 Rate: l 25,000 unit 14:35: 13.75 Tamela nn [12 00 ml/hr, unit/kg/hr] Infuse + Premix over: 36.4 Diluent hr, Route: Dextrose 5% IV, Dosing 500 mL Weight 57.3 kg, Total Volume: 500 mL, Start date: 10/13/13 9:35:00, Duration: 30 day, Stop date: 11/12/13 9:34:00 heparin No 3,400 Memoria sodium, 7-24 unit, 3.4 l porcine 14:35: mL, Route: Herm kendra 5000 UNT/ML 00 IV, Drug Injectable form: INJ, Solution ONCE, Dosing Weight 75, kg, Priority: STAT, Start date: 10/13/13 9:35:00, Stop date: 10/13/13 9:35:00 heparin No Route: Memoria sodium, 7-24 IVP, PRN, l porcine 14:35: 3,400 [place] 1000 UNT/ML 00 unit, 3.4 Injectable mL, Drug Solution form: INJ, PRN, Heparin Protocol, Start date: 10/13/13 9:35:00 Stop date: 11/12/13 9:34:00, 30 day heparin No 500 mL, Memoria additive 7-24 Rate: l 25,000 unit 14:35: 13.75 Tamela nn [12 00 ml/hr, unit/kg/hr] Infuse + Premix over: 36.4 Diluent hr, Route: Dextrose 5% IV, Dosing 500 mL Weight 57.3 kg, Total Volume: 500 mL, Start date: 10/13/13 9:35:00, Duration: 30 day, Stop date: 11/12/13 9:34:00 heparin No 3,400 Memoria sodium, 7-24 unit, 3.4 l porcine 14:35: mL, Route: Herm kendra 5000 UNT/ML 00 IV, Drug Injectable form: INJ, Solution ONCE, Dosing Weight 75, kg, Priority: STAT, Start date: 10/13/13 9:35:00, Stop date: 10/13/13 9:35:00 heparin No Route: Memoria sodium, 7-24 IVP, PRN, l porcine 14:35: 3,400 [place] 1000 UNT/ML 00 unit, 3.4 Injectable mL, Drug Solution form: INJ, PRN, Heparin Protocol, Start date: 10/13/13 9:35:00 Stop date: 11/12/13 9:34:00, 30 day heparin No 500 mL, Memoria additive 7-24 Rate: l 25,000 unit 14:35: 13.75 Tamela nn [12 00 ml/hr, unit/kg/hr] Infuse + Premix over: 36.4 Diluent hr, Route: Dextrose 5% IV, Dosing 500 mL Weight 57.3 kg, Total Volume: 500 mL, Start date: 10/13/13 9:35:00, Duration: 30 day, Stop date: 11/12/13 9:34:00 heparin No 3,400 Memoria sodium, 7-24 unit, 3.4 l porcine 14:35: mL, Route: Herm kendra 5000 UNT/ML 00 IV, Drug Injectable form: INJ, Solution ONCE, Dosing Weight 75, kg, Priority: STAT, Start date: 10/13/13 9:35:00, Stop date: 10/13/13 9:35:00 heparin No Route: Memoria sodium, 7-24 IVP, PRN, l porcine 14:35: 3,400 [place] 1000 UNT/ML 00 unit, 3.4 Injectable mL, Drug Solution form: INJ, PRN, Heparin Protocol, Start date: 10/13/13 9:35:00 Stop date: 11/12/13 9:34:00, 30 day heparin 2013-0 No 500 mL, Memoria additive 7-24 Rate: l 25,000 unit 14:35: 13.75 Tamela nn [12 00 ml/hr, unit/kg/hr] Infuse + Premix over: 36.4 Diluent hr, Route: Dextrose 5% IV, Dosing 500 mL Weight 57.3 kg, Total Volume: 500 mL, Start date: 10/13/13 9:35:00, Duration: 30 day, Stop date: 11/12/13 9:34:00 heparin No 3,400 Memoria sodium, 7-24 unit, 3.4 l porcine 14:35: mL, Route: Herm kendra 5000 UNT/ML 00 IV, Drug Injectable form: INJ, Solution ONCE, Dosing Weight 75, kg, Priority: STAT, Start date: 10/13/13 9:35:00, Stop date: 10/13/13 9:35:00 heparin 0 No Route: Memoria sodium, 7-24 IVP, PRN, l porcine 14:35: 3,400 [place] 1000 UNT/ML 00 unit, 3.4 Injectable mL, Drug Solution form: INJ, PRN, Heparin Protocol, Start date: 10/13/13 9:35:00 Stop date: 11/12/13 9:34:00, 30 day heparin 2013-0 No 500 mL, Memoria additive 7-24 Rate: l 25,000 unit 14:35: 13.75 Tamela nn [12 00 ml/hr, unit/kg/hr] Infuse + Premix over: 36.4 Diluent hr, Route: Dextrose 5% IV, Dosing 500 mL Weight 57.3 kg, Total Volume: 500 mL, Start date: 10/13/13 9:35:00, Duration: 30 day, Stop date: 11/12/13 9:34:00 heparin 2013-0 No 3,400 Memoria sodium, 7-24 unit, 3.4 l porcine 14:35: mL, Route: Herm kendra 5000 UNT/ML 00 IV, Drug Injectable form: INJ, Solution ONCE, Dosing Weight 75, kg, Priority: STAT, Start date: 10/13/13 9:35:00, Stop date: 10/13/13 9:35:00 clopidogrel Yes 75 mg = 1 M emoria 75 MG Oral 7-24 tab, PO, l Tablet 12:22: Daily Ben [Plavix] pantoprazol No 40 mg = 1 M emoria e 40 mg 7-24 tab, PO, l oral 12:22: Daily [place] enteric 00 coated tablet losartan 50 No 50 mg = 1 M emoria mg oral 7-24 tab, PO, l tablet 12:22: Daily Ben 00 clopidogrel Yes 75 mg = 1 M emoria 75 MG Oral 7-24 tab, PO, l Tablet 12:22: Daily [place] [Plavix] pantoprazol No 40 mg = 1 M emoria e 40 mg 7-24 tab, PO, l oral 12:22: Daily Ben enteric 00 coated tablet losartan 50 No 50 mg = 1 M emoria mg oral 7-24 tab, PO, l tablet 12:22: Daily Ben 00 clopidogrel Yes 75 mg = 1 M emoria 75 MG Oral 7-24 tab, PO, l Tablet 12:22: Daily [place] [Plavix] pantoprazol No 40 mg = 1 M emoria e 40 mg 7-24 tab, PO, l oral 12:22: Daily Ben enteric 00 coated tablet losartan 50 No 50 mg = 1 M emoria mg oral 7-24 tab, PO, l tablet 12:22: Daily [place] 00 clopidogrel Yes 75 mg = 1 M emoria 75 MG Oral 7-24 tab, PO, l Tablet 12:22: Daily Ben [Plavix] pantoprazol No 40 mg = 1 M emoria e 40 mg 7-24 tab, PO, l oral 12:22: Daily [place] enteric 00 coated tablet losartan 50 No 50 mg = 1 M emoria mg oral 7-24 tab, PO, l tablet 12:22: Daily [place] 00 clopidogrel Yes 75 mg = 1 M emoria 75 MG Oral 7-24 tab, PO, l Tablet 12:22: Daily Ben [Plavix] pantoprazol No 40 mg = 1 M emoria e 40 mg 7-24 tab, PO, l oral 12:22: Daily Ben enteric 00 coated tablet losartan 50 No 50 mg = 1 M emoria mg oral 7-24 tab, PO, l tablet 12:22: Daily clopidogrel Yes 75 mg = 1 M emoria 75 MG Oral 7-24 tab, PO, l Tablet 12:22: Daily [Plavix] pantoprazol No 40 mg = 1 M emoria e 40 mg 7-24 tab, PO, l oral 12:22: Daily [place] enteric 00 coated tablet losartan 50 No 50 mg = 1 M emoria mg oral 7-24 tab, PO, l tablet 12:22: Daily clopidogrel Yes 75 mg = 1 M emoria 75 MG Oral 7-24 tab, PO, l Tablet 12:22: Daily [Plavix] pantoprazol No 40 mg = 1 M emoria e 40 mg 7-24 tab, PO, l oral 12:22: Daily Ben enteric 00 coated tablet losartan 50 No 50 mg = 1 M emoria mg oral 7-24 tab, PO, l tablet 12:22: Daily clopidogrel Yes 75 mg = 1 M emoria 75 MG Oral 7-24 tab, PO, l Tablet 12:22: Daily [Plavix] pantoprazol No 40 mg = 1 M emoria e 40 mg 7-24 tab, PO, l oral 12:22: Daily [place] enteric 00 coated tablet losartan 50 No 50 mg = 1 M emoria mg oral 7-24 tab, PO, l tablet 12:22: Daily clopidogrel Yes 75 mg = 1 M emoria 75 MG Oral 7-24 tab, PO, l Tablet 12:22: Daily [Plavix] pantoprazol No 40 mg = 1 M emoria e 40 mg 7-24 tab, PO, l oral 12:22: Daily [place] enteric 00 coated tablet losartan 50 No 50 mg = 1 M emoria mg oral 7-24 tab, PO, l tablet 12:22: Daily Ben 00 clopidogrel Yes 75 mg = 1 M emoria 75 MG Oral 7-24 tab, PO, l Tablet 12:22: Daily [Plavix] pantoprazol No 40 mg = 1 M emoria e 40 mg 7-24 tab, PO, l oral 12:22: Daily 00 coated tablet losartan 50 No 50 mg = 1 M emoria mg oral 7-24 tab, PO, l tablet 12:22: Daily predniSONE Yes 10 mg = 1 Me moria 10 mg oral 7-24 tab, PO, l tablet 12:21: Daily predniSONE Yes 10 mg = 1 Me moria 10 mg oral 7-24 tab, PO, l tablet 12:21: Daily predniSONE Yes 10 mg = 1 Me moria 10 mg oral 7-24 tab, PO, l tablet 12:21: Daily predniSONE Yes 10 mg = 1 Me moria 10 mg oral 7-24 tab, PO, l tablet 12:21: Daily predniSONE Yes 10 mg = 1 Me moria 10 mg oral 7-24 tab, PO, l tablet 12:21: Daily predniSONE Yes 10 mg = 1 Me moria 10 mg oral 7-24 tab, PO, l tablet 12:21: Daily predniSONE Yes 10 mg = 1 Me moria 10 mg oral 7-24 tab, PO, l tablet 12:21: Daily predniSONE Yes 10 mg = 1 Me moria 10 mg oral 7-24 tab, PO, l tablet 12:21: Daily predniSONE Yes 10 mg = 1 Me moria 10 mg oral 7-24 tab, PO, l tablet 12:21: Daily predniSONE Yes 10 mg = 1 Me moria 10 mg oral 7-24 tab, PO, l tablet 12:21: Daily Furosemide Yes 20 mg = 1 Me moria 20 MG Oral 7-24 tab, PO, l Tablet 12:20: Daily [Lasix] Metoprolol No 50 mg = 1 Me moria Tartrate 50 7-24 tab, PO, l mg oral 12:20: BID Ben tablet Furosemide Yes 20 mg = 1 Me moria 20 MG Oral 7-24 tab, PO, l Tablet 12:20: Daily Ben [Lasix] Metoprolol No 50 mg = 1 Me moria Tartrate 50 7-24 tab, PO, l mg oral 12:20: BID [place] tablet Furosemide Yes 20 mg = 1 Me moria 20 MG Oral 7-24 tab, PO, l Tablet 12:20: Daily Ben [Lasix] Metoprolol No 50 mg = 1 Me moria Tartrate 50 7-24 tab, PO, l mg oral 12:20: BID [place] tablet Furosemide Yes 20 mg = 1 Me moria 20 MG Oral 7-24 tab, PO, l Tablet 12:20: Daily [place] [Lasix] Metoprolol No 50 mg = 1 Me moria Tartrate 50 7-24 tab, PO, l mg oral 12:20: BID [place] tablet Furosemide Yes 20 mg = 1 Me moria 20 MG Oral 7-24 tab, PO, l Tablet 12:20: Daily Ben [Lasix] Metoprolol No 50 mg = 1 Me moria Tartrate 50 7-24 tab, PO, l mg oral 12:20: BID Ben tablet Furosemide Yes 20 mg = 1 Me moria 20 MG Oral 7-24 tab, PO, l Tablet 12:20: Daily Ben [Lasix] Metoprolol No 50 mg = 1 Me moria Tartrate 50 7-24 tab, PO, l mg oral 12:20: BID Ben tablet Furosemide Yes 20 mg = 1 Me moria 20 MG Oral 7-24 tab, PO, l Tablet 12:20: Daily Ben [Lasix] Metoprolol No 50 mg = 1 Me moria Tartrate 50 7-24 tab, PO, l mg oral 12:20: BID [place] tablet Furosemide Yes 20 mg = 1 Me moria 20 MG Oral 7-24 tab, PO, l Tablet 12:20: Daily [place] [Lasix] Metoprolol No 50 mg = 1 Me moria Tartrate 50 7-24 tab, PO, l mg oral 12:20: BID Ben tablet Furosemide Yes 20 mg = 1 Me moria 20 MG Oral 7-24 tab, PO, l Tablet 12:20: Daily Ben [Lasix] 00 Metoprolol No 50 mg = 1 Me moria Tartrate 50 7-24 tab, PO, l mg oral 12:20: BID [place] tablet 00 Furosemide Yes 20 mg = 1 Me moria 20 MG Oral 7-24 tab, PO, l Tablet 12:20: Daily [place] [Lasix] 00 Metoprolol No 50 mg = 1 Me moria Tartrate 50 7-24 tab, PO, l mg oral 12:20: BID Ben tablet 00 metoprolol No Notes: Memor ia extended 7-24 (Same as: l release 10:23: Toprol XL) Herm kendra 00 May split tab, but do not crush. metoprolol No Notes: Memor ia extended 7-24 (Same as: l release 10:23: Toprol XL) Herm kendra 00 May split tab, but do not crush. metoprolol No Notes: Memor ia extended 7-24 (Same as: l release 10:23: Toprol XL) Herm kendra 00 May split tab, but do not crush. metoprolol No Notes: Memor ia extended 7-24 (Same as: l release 10:23: Toprol XL) Herm kendra 00 May split tab, but do not crush. metoprolol No Notes: Memor ia extended 7-24 (Same as: l release 10:23: Toprol XL) Herm kendra 00 May split tab, but do not crush. metoprolol No Notes: Memor ia extended 7-24 (Same as: l release 10:23: Toprol XL) Herm kendra 00 May split tab, but do not crush. metoprolol No Notes: Memor ia extended 7-24 (Same as: l release 10:23: Toprol XL) Herm kendra 00 May split tab, but do not crush. metoprolol No Notes: Memor ia extended 7-24 (Same as: l release 10:23: Toprol XL) Herm kendra 00 May split tab, but do not crush. metoprolol No Notes: Memor ia extended 7-24 (Same as: l release 10:23: Toprol XL) Herm kendra May split tab, but do not crush. metoprolol No Notes: Memor ia extended 7-24 (Same as: l release 10:23: Toprol XL) Herm kendra May split tab, but do not crush. Sodium No 1,000 mL, Memori a Chloride 7-24 Rate: 125 l 0.154 08:12: ml/hr, [place] MEQ/ML 00 Infuse Injectable over: 8 Solution hr, Route: IV, Dosing Weight 75 kg, Total Volume: 1,000, Start date: 10/13/13 3:12:00, Duration: 30 day, Stop date: 11/12/13 3:11:00 Saline No Notes: Memoria Flush 0.9% 7-24 (Same as: l 08:12: BD Ben 00 Posiflush) Sodium No 1,000 mL, Memori a Chloride 7-24 Rate: 125 l 0.154 08:12: ml/hr, [place] MEQ/ML 00 Infuse Injectable over: 8 Solution hr, Route: IV, Dosing Weight 75 kg, Total Volume: 1,000, Start date: 10/13/13 3:12:00, Duration: 30 day, Stop date: 11/12/13 3:11:00 Saline No Notes: Memoria Flush 0.9% 7-24 (Same as: l 08:12: BD [place] 00 Posiflush) Sodium No 1,000 mL, Memori a Chloride 7-24 Rate: 125 l 0.154 08:12: ml/hr, Ben MEQ/ML 00 Infuse Injectable over: 8 Solution hr, Route: IV, Dosing Weight 75 kg, Total Volume: 1,000, Start date: 10/13/13 3:12:00, Duration: 30 day, Stop date: 11/12/13 3:11:00 Saline No Notes: Memoria Flush 0.9% 7-24 (Same as: l 08:12: BD Ben 00 Posiflush) Sodium No 1,000 mL, Memori a Chloride 7-24 Rate: 125 l 0.154 08:12: ml/hr, Ben MEQ/ML 00 Infuse Injectable over: 8 Solution hr, Route: IV, Dosing Weight 75 kg, Total Volume: 1,000, Start date: 10/13/13 3:12:00, Duration: 30 day, Stop date: 11/12/13 3:11:00 Saline No Notes: Memoria Flush 0.9% 7-24 (Same as: l 08:12: BD Ben 00 Posiflush) Sodium No 1,000 mL, Memori a Chloride 7-24 Rate: 125 l 0.154 08:12: ml/hr, [place] MEQ/ML 00 Infuse Injectable over: 8 Solution hr, Route: IV, Dosing Weight 75 kg, Total Volume: 1,000, Start date: 10/13/13 3:12:00, Duration: 30 day, Stop date: 11/12/13 3:11:00 Saline No Notes: Memoria Flush 0.9% 7-24 (Same as: l 08:12: BD [place] 00 Posiflush) Sodium No 1,000 mL, Memori a Chloride 7-24 Rate: 125 l 0.154 08:12: ml/hr, Ben MEQ/ML 00 Infuse Injectable over: 8 Solution hr, Route: IV, Dosing Weight 75 kg, Total Volume: 1,000, Start date: 10/13/13 3:12:00, Duration: 30 day, Stop date: 11/12/13 3:11:00 Saline No Notes: Memoria Flush 0.9% 7-24 (Same as: l 08:12: BD [place] 00 Posiflush) Sodium No 1,000 mL, Memori a Chloride 7-24 Rate: 125 l 0.154 08:12: ml/hr, Ben MEQ/ML 00 Infuse Injectable over: 8 Solution hr, Route: IV, Dosing Weight 75 kg, Total Volume: 1,000, Start date: 10/13/13 3:12:00, Duration: 30 day, Stop date: 11/12/13 3:11:00 Saline No Notes: Memoria Flush 0.9% 7-24 (Same as: l 08:12: BD [place] 00 Posiflush) Sodium No 1,000 mL, Memori a Chloride 7-24 Rate: 125 l 0.154 08:12: ml/hr, [place] MEQ/ML 00 Infuse Injectable over: 8 Solution hr, Route: IV, Dosing Weight 75 kg, Total Volume: 1,000, Start date: 10/13/13 3:12:00, Duration: 30 day, Stop date: 11/12/13 3:11:00 Saline No Notes: Memoria Flush 0.9% 7-24 (Same as: l 08:12: BD Ben 00 Posiflush) Sodium No 1,000 mL, Memori a Chloride 7-24 Rate: 125 l 0.154 08:12: ml/hr, Ben MEQ/ML 00 Infuse Injectable over: 8 Solution hr, Route: IV, Dosing Weight 75 kg, Total Volume: 1,000, Start date: 10/13/13 3:12:00, Duration: 30 day, Stop date: 11/12/13 3:11:00 Saline No Notes: Memoria Flush 0.9% 7-24 (Same as: l 08:12: BD Ben 00 Posiflush) Sodium No 1,000 mL, Memori a Chloride 7-24 Rate: 125 l 0.154 08:12: ml/hr, Ben MEQ/ML 00 Infuse Injectable over: 8 Solution hr, Route: IV, Dosing Weight 75 kg, Total Volume: 1,000, Start date: 10/13/13 3:12:00, Duration: 30 day, Stop date: 11/12/13 3:11:00 Saline No Notes: Memoria Flush 0.9% 7-24 (Same as: l 08:12: BD [place] 00 Posiflush) Vital Signs Vital Name Observation Time Observation Value Comments Source Systolic blood 2021-01-02 157 mm[Hg] [facility] pressure 17:00:00 [facility] Diastolic blood 2021-01-02 72 mm[Hg] [place] [facility] pressure 17:00:00 [facility] Heart rate 2021-01-02 73 /min [facility] 17:00:00 [facility] Respiratory rate 2021-01-02 19 /min [facility] 17:00:00 [facility] Oxygen saturation 2021-01-02 97 /min [facility] Arterial blood 17:00:00 [facility] by Pulse oximetry [place] Body temperature 2021-01-02 36.11 [facility] 16:33:00 [facility] Body height 2021-01-02 152.4 cm [facility] 14:19:00 [facility] Body weight 2021-01-02 77.5 kg [facility] 14:19:00 [facility] BMI 2021-01-02 33.37 kg/m2 [facility] 14:19:00 [facility] Systolic blood 2021-01-02 157 mm[Hg] [facility] pressure 17:00:00 [facility] Diastolic blood 2021-01-02 72 mm[Hg] [facility] f pressure 17:00:00 [facility] Heart rate 2021-01-02 73 /min [facility] 17:00:00 [facility] Respiratory rate 2021-01-02 19 /min [facility] 17:00:00 [facility] Oxygen saturation 2021-01-02 97 /min [facility] in Arterial blood 17:00:00 [facility] by Pulse oximetry Branch Body temperature 2021-01-02 36.11 Annette [facility] 16:33:00 [facility] Body height 2021-01-02 152.4 cm [facility] 14:19:00 [facility] Body weight 2021-01-02 77.5 kg [facility] 14:19:00 [facility] BMI 2021-01-02 33.37 kg/m2 [facility] 14:19:00 [facility] Systolic blood 2020-12-17 160 mm[Hg] Patient stated [facility] pressure 18:48:00 this is her [facility] normal range Branch for her Diastolic blood 2020-12-17 92 mm[Hg] Patient stated [facility] pressure 18:48:00 this is her [facility] normal range Branch for her Heart rate 2020-12-17 65 /min [facility] 18:48:00 [facility] Body temperature 2020-12-17 35.72 Annette [facility] 18:48:00 [facility] Body height 2020-12-17 152.4 cm [facility] 18:48:00 [facility] Body weight 2020-12-17 78.245 kg [facility] 18:48:00 [facility] BMI 2020-12-17 33.69 kg/m2 [facility] 18:48:00 [facility] Systolic (mm Hg) 2020-10-05 [facility]mkendra 18:42:00 Diastolic (mm Hg) 2020-10-05 [facility] 18:[facility]00 Heart Rate 2020-10-05 [facility] 18:42:00 Temperature Oral 2020-10-05 98.4 F [facility] 18:42:00 Height 2020-10-05 152.4 cm [facility] 18:42:00 Weight 2020-10-05 [facility] 18:42:00 BMI Calculated 2020-10-05 [facility] 18:42:00 Heart Rate 2020-02-19 [facility] 21:06:00 Temperature Oral 2020-02-19 97.4 F [facility] (F) 21:06:00 Respitory Rate 2020-02-19 [facility] 21:06:00 Systolic (mm Hg) 2020-02-19 [facility] 21:06:00 Diastolic (mm Hg) 2020-02-19 [facility] 21:06:00 Height 2020-02-19 152.4 cm [facility] 16:14:00 BMI Calculated 2020-02-19 [facility] 16:14:00 Weight 2020-02-19 [facility] 16:14:00 Systolic (mm Hg) 2020-02-19 [facility] 16:14:00 Diastolic (mm Hg) 2020-02-19 [facility] 16:14:00 Heart Rate 2020-02-19 [facility] 16:14:00 Respitory Rate 2020-02-19 [facility] 16:14:00 Temperature Oral 2020-02-19 98.1 F [facility] (F) 16:14:00 Temperature Oral 2019-09-06 98.9 F [facility] (F) 16:25:00 Heart Rate 2019-09-06 [facility] 16:25:00 Respitory Rate 2019-09-06 [facility] 16:25:00 Systolic (mm Hg) 2019-09-06 [facility] 16:25:00 Diastolic (mm Hg) 2019-09-06 [facility] 16:25:00 Temperature Oral 2019-09-06 98.9 F [facility] (F) 12:29:00 Heart Rate 2019-09-06 [facility] 12:29:00 Respitory Rate 2019-09-06 [facility] 12:29:00 Systolic (mm Hg) 2019-09-06 [facility] 12:29:00 Diastolic (mm Hg) 2019-09-06 [facility] 12:29:00 Temperature Oral 2019-09-06 99.0 F [facility] (F) 09:18:00 Heart Rate 2019-09-06 [facility] 09:18:00 Respitory Rate 2019-09-06 [facility] 09:18:00 Systolic (mm Hg) 2019-09-06 [facility] 09:18:00 Diastolic (mm Hg) 2019-09-06 [facility] 09:18:00 Height 2019-08-30 152.4 cm [facility] 14:20:00 Weight 2019-08-30 [facility] 14:20:00 BMI Calculated 2019-08-30 [facility] 14:20:00 Systolic (mm Hg) 2019-07-16 [facility] 15:35:00 Diastolic (mm Hg) 2019-07-16 [facility] 15:35:00 Heart Rate 2019-07-16 [facility] 15:35:00 Respitory Rate 2019-07-16 [facility] 15:35:00 Systolic (mm Hg) 2019-07-16 [facility] 14:30:00 Diastolic (mm Hg) 2019-07-16 [facility] 14:30:00 Heart Rate 2019-07-16 [facility] 14:30:00 Respitory Rate 2019-07-16 [facility] 14:30:00 Height 2019-07-16 152.4 cm [facility] 12:42:00 BMI Calculated 2019-07-16 [facility] 12:42:00 Weight 2019-07-16 [facility] 12:42:00 Systolic (mm Hg) 2019-07-16 [facility] 12:42:00 Diastolic (mm Hg) 2019-07-16 [facility] 12:42:00 Heart Rate 2019-07-16 [facility] 12:42:00 Respitory Rate 2019-07-16 [facility] 12:42:00 Temperature Oral 2019-07-16 97.5 F [facility] (F) 12:42:00 Systolic (mm Hg) 2019-07-13 [facility] 03:15:00 Diastolic (mm Hg) 2019-07-13 [facility] 03:15:00 Respitory Rate 2019-07-13 [facility] 03:15:00 Heart Rate 2019-07-13 [facility] 03:15:00 Temperature Oral 2019-07-13 98.4 F [facility] (F) 03:15:00 Systolic (mm Hg) 2019-07-13 [facility] 02:27:00 Diastolic (mm Hg) 2019-07-13 [facility] 02:27:00 Respitory Rate 2019-07-13 [facility] 02:27:00 Heart Rate 2019-07-13 [facility] 02:27:00 Systolic (mm Hg) 2019-07-13 [facility] 01:14:00 Diastolic (mm Hg) 2019-07-13 [facility] 01:14:00 Respitory Rate 2019-07-13 [facility] 01:14:00 Heart Rate 2019-07-13 [facility] 01:14:00 Temperature Oral 2019-07-13 98.3 F [facility] (F) 01:14:00 Height 2019-07-12 165.1 cm [facility] 22:27:00 BMI Calculated 2019-07-12 [facility] 22:27:00 Weight 2019-07-12 [facility] 22:27:00 Temperature Oral 2019-07-12 97.8 F [facility] (F) 22:27:00 Weight 2018-10-25 [facility] 13:37:00 Height 2018-10-25 152.4 cm [facility] 13:37:00 BMI Calculated 2018-10-25 [facility] 13:37:00 Systolic (mm Hg) 2018-10-25 [facility] 13:37:00 Diastolic (mm Hg) 2018-10-25 [facility] 13:37:00 Heart Rate 2018-10-25 [facility] 13:37:00 Diastolic (mm Hg) 2013-10-16 [facility] 19:40:00 Systolic (mm Hg) 2013-10-16 [facility] 19:40:00 Respitory Rate 2013-10-16 [facility] 19:00:00 Temperature Oral 2013-10-16 98.1 F [facility] (F) 17:52:00 Respitory Rate 2013-10-16 [facility] 16:00:00 Diastolic (mm Hg) 2013-10-16 [facility] 16:00:00 Systolic (mm Hg) 2013-10-16 [facility] 16:00:00 Temperature Oral 2013-10-16 98.5 F [facility] Y[facility]rough rmann (F) 14:37:00 Respitory Rate 2013-10-16 [facility] 14:00:00 Diastolic (mm Hg) 2013-10-16 David Palma ermann 14:00:00 Systolic (mm Hg) 2013-10-16 [facility] Yarbrough rmann 14:00:00 Temperature Oral 2013-10-16 97.8 F [facility] r[facility] (F) 10:01:00 Heart Rate 2013-10-13 David Beckan n 09:29:00 Heart Rate 2013-10-13 [facility] 08:21:00 Weight 2013-10-13 [facility] 07:45:00 BMI Calculated 2013-10-13 [facility] 07:45:00 Height 2013-10-13 152.4 cm [facility] Beckan n 07:45:00 Heart Rate 2013-10-13 [facility] Beckan n 07:45:00 Procedures Procedure Date / Time Performing Clinician Source Performed ABORH CONFIRMATION (LAB 2021-01-02 15:02:00 [facility] ONLY) Medical Branch ABORH CONFIRMATION (LAB 2021-01-02 15:02:00 [facility] ONLY) Medical Branch HB ABO GROUPING 2021-01-02 14:39:00 [facility] HB ABO GROUPING 2021-01-02 14:39:00 [facility] ASSIGNMENT OF BENEFITS 2021-01-02 13:36:23 Doctor Unassigned, [facility] Dental care 2020-09-28 05:00:00 [facility] Eye care 2020-03-23 06:00:00 [facility] Her josé EXTERNAL PROVIDER RECORDS Doctor Unassigned, [facility] Plan of Care Planned Activity Planned Date Details Comments Source Future Scheduled Test COVID-19 VACCINE (1) [facility] [code = COVID-19 VACCINE (1)] Future Scheduled Test Hepatitis C screening [facility] (procedure) [code = 806402952] Future Scheduled Test BREAST CANCER SCREENING [facility] [code = BREAST CANCER SCREENING] Future Scheduled Test COLONOSCOPY SCREENING [facility] [code = COLONOSCOPY SCREENING] Future Scheduled Test SHINGLES VACCINES (#1) [facility] [code = SHINGLES VACCINES (#1)] Future Scheduled Test 65+ PNEUMOCOCCAL Me [facility] VACCINE (1 of 1 - PPSV23) [code = 65+ PNEUMOCOCCAL VACCINE (1 of 1 - PPSV23)] Future Scheduled Test INFLUENZA VACCINE [code [facility] = INFLUENZA VACCINE] Encounters Start End Encounter Admission Attending Care Care Encounter Source Date/Time Date/Time Type Type Clinicians Facility Department ID 2021-01-22 Inpatient [facility] [id number] Univers 06:41:13 BETTY tevinbenjamin [facility] 2021-01-22 Inpatient R [facility] [id number] Univers 06:34:34 BETTY tevinbenjamin [facility] [place] [facility] 2021-01-21 Inpatient [facility] [id number] Univers 22:51:36 [facility] 2019-09-01 Inpatient [facility] NICOL[place] [id number] Mem oria 08:40:00 l [facility] 2021-05-30 2021-05-30 Outpatient [place] [id number] A-20 Univers 08:30:00 08:30:00 [facility] [id number] [facility] 2021-05-30 2021-05-30 Outpatient R [place] [id number] Univers 08:30:00 08:30:00 [facility] 2021-01-30 2021-01-30 Telephone Nakul, UNIVERS 1.2.840.11 [id number] Univers 00:00:00 00:00:00 [facility] HEALTH [id number] [place] [phone] [address] 2021-01-04 2021-01-04 [facility] 1.2.840.114 [id number] Univers 00:00:00 00:00:00 Betty Y HEALTH [id number] [place] [phone] [facility] [address] 2021-01-02 2021-01-02 Surgery Lauren Mota 1.2.840.114 [id number] Univers 10:55:00 16:13:00 Betty Adonis [id number] ity of [facility] 4.2.7.2.686 Ryan as [phone] [facility] [address] Branch 2021-01-02 2021-01-02 Hospital Lauren Mota 1.2.840.114 [id number] Univers 08:57:00 12:26:00 Encounter Betty Adonis [id number] ity of [facility] 4.2.7.2.686 Ryan as [id number] [facility] 104 Branch 2021-01-02 2021-01-02 Anesthesia Gabby Jose 1.2.840.114 [id number] Univers 11:11:00 11:35:00 Event Braulio Appley 350.1.13.10 ity of Hospital 4.2.7.2.686 [place] as [phone] [facility] [address] 2021-01-02 2021-01-02 Orders Doctor DALLIN 1.2.840.114 [id number] Univers 00:00:00 00:00:00 Only Unassigned, ADONIS 350.1.13.10 ity of [place] [facility] 4.2.7.2.686 Ryan as [phone] [facility] 009 Branch 2021-01-02 2021-01-02 Prep For DALLIN Mota 1.2.840.114 [id number] Univers 00:00:00 00:00:00 Surgery Betty ADONIS 350.1.13.10 ity of [facility] 4.2.7.2.686 Ryan as [phone] [facility] 044 Branch 2021-01-02 2021-01-02 Patient Nakul SHAWN 1.2.840.114 [id number] Univers 00:00:00 00:00:00 Outreach Betty [facility] 350.1.13.10 ity of [facility] [id number] [address] 2021-01-01 2021-01-01 Outpatient [facility] [id number] Univers 10:15:00 10:15:00 [id number] ity [facility] 2021-01-01 2021-01-01 Outpatient R UNKNOWN, [facility] [id number] Univers 10:15:00 10:15:00 ATTENDING ity [facility] 2021-01-01 2021-01-01 Laboratory Only, Clc Bls Test [facility] 1.2. 840.114 [id number] Univers 09:39:15 09:54:15 Only Unknown, Attending Health 350.1.13.10 [place] [phone] [address] Office Building 2021-01-01 2021-01-01 Letter JessiDALLIN hathaway 1.2.840.114 [id number] Univers 00:00:00 00:00:00 (Out) Rema LAMB 350.1.13.10 it y of [facility] 4.2.7.2.686 [place] [phone] [place] [address] Branch 2020-12-31 2020-12-31 Outpatient MHIE MHIE [id number] Memoria 14:30:00 14:30:00 03 tae Contreras 2020-12-17 2020-12-17 Office SHAWN Mota 1.2.840.114 [id number] Univers 13:43:07 14:24:33 Visit [facility] 350.1.13.10 [phone] [address] 2020-12-17 2020-12-17 Outpatient R NAKUL [facility] [id number] Univers 13:45:00 13:45:00 BETTY [id number] [facility] 2020-12-17 2020-12-17 Outpatient R NAKUL [facility] [id number] Univers 13:45:00 13:45:00 BETTY [facility] 2020-12-13 2020-12-13 Outpatient R MISHA [facility] [id number] Univers 09:30:00 09:30:00 [facility] [id number] [facility] 2020-12-13 2020-12-13 Outpatient R MISHA [facility] [id number] Univers 00:00:00 00:00:00 [facility] 2020-12-10 2020-12-10 Outpatient R [facility] [id number] Univers 11:45:00 11:45:00 [id number] [facility] 2020-12-10 2020-12-10 Outpatient R [facility] [id number] Univers 09:15:00 09:15:00 [facility] 2020-11-30 2020-11-30 Outpatient R [facility] [id number] Univers 14:00:00 14:00:00 [id number] [facility] 2020-11-30 2020-11-30 Outpatient R [facility] [id number] Univers 14:00:00 14:00:00 [facility] 2020-11-30 2020-11-30 Outpatient [place] [id number] Univers 13:00:00 13:00:00 [facility] 2020-11-28 2020-11-28 Outpatient R CHRISTIE, [facility] [id number] Univers 13:30:00 13:30:00 RAND [facility] 2020-11-20 2020-11-20 Emergency X RAMIRO, [facility] ERT [id number] Univers 20:15:00 20:15:00 DELIA [facility] 2020-11-20 2020-11-20 Emergency EM Fadi, [facility] REMA [id number] [facility] 10:30:00 13:04:00 Timo [id number] [facility] 2020-10-05 2020-10-06 Outpatient nullFlavo [facility] [id number] Memoria 18:30:00 04:59:59 r Primary 02 l Care [facility] 2020-07-19 2020-07-20 Outpt Diag nullFlavo [facility] [id number] Memoria 16:22:00 04:59:00 Services r Outpatient 07 l [facility] 2020-05-18 2020-05-19 Outpt Diag nullFlavo [facility] [id number] Memoria 12:46:00 05:59:00 Services r Outpatient 06 l [facility] 2020-02-24 2020-02-25 Outpt Diag nullFlavo [facility] [id number] Memoria 12:38:00 05:59:00 Services r Outpatient 04 l [facility] 2020-02-19 2020-02-19 Emergency nullFlavo [facility] [id number] Memoria 16:10:22 21:14:00 r [place] [address] [facility] 2019-11-07 2019-11-08 Outpt Diag nullFlavo [facility] [id number] Memoria 12:32:00 04:59:00 Services r Outpatient 01 l [facility] 2019-09-01 2019-09-06 Inpatient nullFlavo [facility] [id number] Memoria 13:40:00 23:26:00 r Ben [address] [facility] 2019-07-16 2019-07-16 Emergency nullFlavo [facility] [id number] Memoria 12:41:22 15:37:00 r Ben 05 [facility] 2019-07-16 2019-07-16 Emergency E [facility] [id number] Memoria 07:41:00 07:41:00 l Ben Brooks [facility] 2019-07-12 2019-07-13 Emergency nullFlavo [facility] [id number] Memoria 22:23:06 03:31:00 r Ben 04 [facility] 2019-07-12 2019-07-12 Emergency E [facility] [id number] Memoria 17:23:00 17:23:00 l Cazenoviakendra Brooks [facility] l 2018-11-26 2018-11-26 Ambulatory nullFlavo [facility] [id number] Memoria 14:15:00 14:15:00 Pre-Reg r Neurology 01 l Cecilia C[place] 2018-10-25 2018-10-26 Outpatient nullFlavo [facility] [id number] Memoria 14:15:00 04:59:59 r Neurology 00 l [facility] 2013-10-13 2013-10-16 Inpatient nullFlavo [facility] [id number] Memoria 07:45:00 21:50:00 r [place] 05 l [facility] Orders Doctor DALLIN 1.2.840.114 [id number] 00:00:00 00:00:00 Only Unassigned, ADONIS 350.1.13.10 ity of [place] [facility] 4.2.7.2.686 Ryan as [phone] [address] Results Test Description Test Time Test Comments Results Result Comments Source ABORH Confirmation (Lab Only) 2021-01-02 15:41:39 Test Item Value Reference Range Interpretation Comme nts ABO & RH (test code = 20) O Negative Pe rformed at [facility] Laboratory Services - [facility] Blood [address] [place], [place] [address]Yndr Free: [phone] No. [id number] [facility] Only[facility]2021-01-02 15:41:39 Test Item Value Reference Range Interpretation Comments ABO & RH (test code O Negative Performe d at [facility] = 20) Laboratory [facility] Blood Bank3 [facility] s [address]Pvef Free: [phone] A No. [id number] [facility] and Screen - ONCE [id number] 15:30:57 Test Item Value Reference Range Interpretation Comments ABO & RH (test code O NEGATIVE Performe d at [facility] = 20) Laboratory [facility] Blood [facility] [address] [facility] s [address]Jrcg Free: [phone] A No. [id number] IAT (test code = Negative Performed a t [facility] 1185) Laboratory [facility] Blood [facility] [address] [facility] s [address]Bmds Free: [phone] A No. [id number] [facility] Screen - ONCE [id number] 15:30:57 Test Item Value Reference Range Interpretation Comments ABO & RH (test code O NEGATIVE Performe d at [facility] = 20) Laboratory [facility] Blood Bank3 [address] [facility] s [address]Ljrr Free: [phone] A No. [id number] IAT (test code = Negative Performed a t [facility] 1185) Laboratory Serv [facility] Blood Bank3 [facility] [address]Qtdc Free: [phone] A No. [id number] [facility]woodBASIC METABOLIC [id number] 12:00:00 Test Item Value Reference Range Interpretation Comments SODIUM (test code = NA) 141 mEq/L 134-147 N POTASSIUM (test code = 3.6 mEq/L 3.4-5.0 N K) CHLORIDE (test code = 108 mEq/L 100-108 N CL) CARBON DIOXIDE (test 25 mEq/l 21-33 N code = CO2) ANION GAP (test code = 11 0-20 N GAP) GLUCOSE (test code = 129 mg/dL 70-110 H GLU) BLOOD UREA NITROGEN 18 mg/dL 7-18 N (test code = BUN) GLOMERULAR FILTRATION 40.6 80-90 L Units of measure = RATE (test code = GFR) ml/mi n/1.73 m2 CREATININE (test code = 1.3 mg/dL 0.6-1.3 N CREAT) CALCIUM (test code = 9.4 mg/dL 8.0-10.5 N CA) TROP-I HIGH [id number] 12:00:00 Test Item Value Reference Range Interpretation Comments TROP-I HIGH 6 ng/L 0-34 N CAUTION: Units of the SENSITIVITY (test current te st methodology code = TROPIHS) (ng/L) diffe rfrom the prior test methodolog y (ng/mL) by a factor of 1000. 99th Percentile Upper Reference Limit (URL): Females: 34 ng/LMales: 54 ng/L In order to distin guish acute elevations of h igh sensitivitytrop onin from other clinical conditions, the FourthUnive rsal Definition of M yocardial Infarction stre ssesclinical assessment and the demonstration o f a rise and/orfall in s erial troponin result s above the URL. These resu lts were obtained using Siemens [employer] [facility] IM TnI Hreagent. Results from di fferent methodologies s hould not becompared to o ne another as quantitative results and URLs mayvary by method. CBC W/AUTO [id number] 11:27:00 Test Item Value Reference Range Interpretation Comments WHITE BLOOD CELL (test code = 6.0 x10 3/uL 4.5-11.0 N WBC) RED BLOOD CELL (test code = 4.60 x10 6/uL 3.54-5.02 N RBC) HEMOGLOBIN (test code = HGB) 13.2 g/dL 11.0-15.0 N HEMATOCRIT (test code = HCT) 40.3 % 33.0-45.0 N MEAN CELL VOLUME (test code = 87.6 fL 81.0-99.0 N MCV) MEAN CELL HGB (test code = MCH) 28.7 pg 27.0-33.0 N MEAN CELL HGB CONCETRATION 32.8 g/dL 33.0-37.0 L (test code = MCHC) RED CELL DISTRIBUTION WIDTH CV 13.1 % 11.5-14.5 N (test code = RDW) RED CELL DISTRIBUTION WIDTH SD 41.4 fL 37.0-54.0 N (test code = RDW-SD) PLATELET COUNT (test code = 184 x10 3/uL 150-400 N PLT) MEAN PLATELET VOLUME (test code 10.7 fL 7.0-9.0 H = MPV) NEUTROPHIL % (test code = NT%) 66.4 % 56.0-77.0 N IMMATURE GRANULOCYTE % (test 0.5 % 0.0-2.0 N code = IG%) LYMPHOCYTE % (test code = LY%) 21.7 % 14.0-32.0 N MONOCYTE % (test code = MO%) 8.4 % 4.8-9.0 N EOSINOPHIL % (test code = EO%) 1.3 % 0.3-3.7 N BASOPHIL % (test code = BA%) 1.7 % 0.0-2.0 N NUCLEATED RBC % (test code = 0.0 % 0-0 N NRBC%) NEUTROPHIL # (test code = NT#) 3.97 x10 3/uL 2.0-7.6 N IMMATURE GRANULOCYTE # (test 0.03 x10 3/uL 0.00-0.03 N code = IG#) LYMPHOCYTE # (test code = LY#) 1.30 x10 3/uL 1.0-3.8 N MONOCYTE # (test code = MO#) 0.50 x10 3/uL 0.1-0.8 N EOSINOPHIL # (test code = EO#) 0.08 x10 3/uL 0.0-0.2 N BASOPHIL # (test code = BA#) 0.10 x10 3/uL 0.0-0.2 N NUCLEATED RBC # (test code = 0.00 x10 3/uL 0.0-0.1 N NRBC#) MANUAL DIFF REQUIRED (test code NO = MDIFF) CBC W/AUTO [id number] 11:26:00 Test Item Value Reference Range Interpretation Comments WHITE BLOOD CELL (test code = x10 3/uL 4.5-11.0 WBC) RED BLOOD CELL (test code = RBC) x10 6/uL 3.54-5.02 HEMOGLOBIN (test code = HGB) 13.2 g/dL 11.0-15.0 N HEMATOCRIT (test code = HCT) 40.3 % 33.0-45.0 N MEAN CELL VOLUME (test code = fL 81.0-99.0 MCV) MEAN CELL HGB (test code = MCH) pg 27.0-33.0 MEAN CELL HGB CONCETRATION (test g/dL 33.0-37.0 code = MCHC) RED CELL DISTRIBUTION WIDTH CV % 11.5-14.5 (test code = RDW) PLATELET COUNT (test code = PLT) 184 x10 3/uL 150-400 N NEUTROPHIL % (test code = NT%) % 56.0-77.0 LYMPHOCYTE % (test code = LY%) % 14.0-32.0 NEUTROPHIL # (test code = NT#) x10 3/uL 2.0-7.6 LYMPHOCYTE # (test code = LY#) x10 3/uL 1.0-3.8 MANUAL DIFF REQUIRED (test code = MDIFF) - CT HEAD/BRAIN W/O [id number] 00:00:00 [facility] JASWANT KINGName: TIMOTHY LANDAVERDE : 1950 Sex: F Name: TIMOTHY LANDAVERDE [facility] Jaswant King : 1950 Age/S: 70 / F [address] [place] [address] Unit #: [id number] Loc: [place] [address] Phys: Timo Aponte MD Acct: [id number] Dis Date: Status: REG ER PHONE #: [phone] Exam Date: 11/20/2020 1137 FAX #: [phone] Reason: LLE weakness, numbness EXAMS: CPT CODE: [id number] CT HEAD/BRAIN W/O CONT [id number] PROCEDURE INFORMATION: Exam: CT Head Without Contrast Exam date and time: 11/20/2020 11:36AM Age: 70 years old Clinical indication: Lle weakness, numbness TECHNIQUE: Imaging protocol: Computed tomography of the head without contrast. Radiation optimization: All CT scans at this facility use at least one of these dose optimization techniques: automat ed exposure control; mA and/or kV adjustment per patient size (includes targeted examswhere dose is matched to clinical indication); or iterative reconstruction. COMPARISON: No relevant prior studies available. FINDINGS: Brain: Old lacunar infarcts in the right putamen; Old lacunar infarct in the right striatocapsular region. Hypodensity in the right frontal centrum semiovale, favored to represent chronic small vessel ischemic changes. Cerebral ventricles: No ventriculomegaly. Paranasal sinuses: Visualized sinuses are unremarkable. No fluid levels. Mastoid air cells: Visualized mastoid air cells are well aerated. Vasculature: Calcifications are seen in the carotid siphons and the intradural vertebral arteries. Bones/joints: Unremarkable. No acute fracture. Soft tissues: Unremarkable. Other findings: A partially empty sella is present. IMPRESSION: 1. No acute intracranial abnormality. 2. Old lacunar infarcts in the right basal ganglia. 3. Mild generalized volume loss and chronic small vessel ischemic changes in the supratentorial white matter. at 1155 Reported and signed by: Jordon Ogden M.D. CC: Timo Aponte MD Technologist:Luisa Lizarraga RT(R)(CT) CTDI: DLP: Trnscb Date/Time:11/20/2020 (5112) [email or web address] Orig Print D/T: S: 11/20/2020 (3772) PAGE 1 Signed Report- XR CHEST 2 [id number] 00:[facility]00 [facility] 1950 Sex: F FAX: Timo Aponte MD [phone] [place]: St: REG Name: TIMOTHY LANDAVERDE [facility] : 1950 Age/S: 70/F [address] [place] [address] Unit #: [id number] Loc: [place] [address] Phys: Timo Aponte MD Acct: [id number] Dis Date: Status: REG ER PHONE #: [phone] Exam Date: 11/20/2020 1132 FAX #: [phone] Reason: LLE weakness, numbness EXAMS: CPT CODE: [id number] XR CHEST 2 V [id number] PROCEDURE INFORMATION: Exam: XR Chest Exam date and time: 11/20/2020 11:31 AM Age: 70 years old Clinical indication: Other: Weak; Additional info: Lle weakness, numbness TECHNIQUE: Imaging protocol: XR of the chest. Views: 2 views. PA and Lateral COMPARISON: No relevant prior studies available. FINDINGS: Tubes, catheters and devices: Surgical clips overlie the abdomen. Lungs: The lungs appear clear without pulmonary venous congestion. Pleural spaces: Unremarkable. No pleural effusion. No pneumothorax. Heart/Mediastinum: Mediastinum and madhu appear unremarkable. Bones/joints: Mild to moderate generalized bony degenerative changes. Bonystructures appear otherwise unremarkable. IMPRESSION: Mild atherosclerotic calcification demonstrated within the aorta. at 1151 Reported and signed by: Jaime Evans M.D. CC: Timo Aponte MD Technologist: RT Marquise(R) Trnscrd Date/Time/By: 11/20/2020 (1151) : By: [email or web address] Orig Print D/T: S: 11/20/2020 (1151) PAGE 1 Signed ReportCHEM CAEIB9459-58-70 17:10:001.32 [facility] BYVDI4667-53-62 17:10:88878Womxvind HermannCHEM PANEL 2020-02-19 17:10:003.6[facility]annCHE[facility] HSSLU4041-89-47 17:10:47201Qrxsphas HermannCHEM SZEOO3343-61-38 17:10:0028[facility]annCHE[facility] HRWWG8632-99-38 17:10:009.3[facility]annCHEM IKAZK4003-68-16 17:10:003.9[facility]annCHE[facility] DQZZC5092-04-25 17:10:0017[facility]annCHE[facility] RSTYM2663-16-13 17:10:0010 [facility] YNFPP8550-63-27 17:10:008.6[facility]annCHEM PANEL 2020-02-19 17:10:00 Test Item Value Reference Range Interpretation Comments B/C Ratio (test code = B/C Ratio) 11 1 6-25 [facility]CHE[facility] FOKEN4023-65-43 17:10:0041[facility]annCHEM PANEL 2020-02-19 17:10:008.7[facility]annCHEM JHOXM1089-08-00 17:10:0092[facility]annCHE[facility] MIKFG4563-51-69 17:10:000.8[facility]annCHEM KNLHS1351-48-58 17:10:004.8[facility]annCHEM REFSQ3467-00-36 17:10:00 Test Item Value Reference Range Interpretation Comments A/G Ratio (test code = A/G Ratio) 0.8 1 0.7-1.6 [facility] NMPCF6013-54-27 17:10:32148Ssfnjaxp HermannHEMATOLOGY 2020-02-19 17:10:009.4[facility] SkjfrjqYMLCMFGMZI4981-79-19 17:10:004.77[facility] VrzyyvrKJZZCJIZAP6435-39-46 17:10:0012.9[facility] NkqwaqcHULCNDDYHM4755-75-92 17:10:0039.[facility]orial GmioynnARXIHOILNK0407-66-00 17:10:0083.0[facility] SGFKKUKUFI2912-38-29 17:10:00 Test Item Value Reference Range Interpretation Comments MCH (test code = MCH) 27.1 pg 27.0-31.0 [facility] WlccjmlGDQOZNBUZO5716-34-79 17:10:0032.6[facility] HermannHEMATOLOGY 2020-02-19 17:10:0014.9[facility] BzoygamAVGRLLJMJY7618-32-38 17:10:77250Nemxxeql IvtqijpLFRCAQEWJV1123-38-37 17:10:008.8[facility] MctqhkxXYNSDPKAFY2927-53-29 17:10:0068.5[facility] MbwxdebPVUABCAVRZ5708-91-50 17:10:0020.6[facility] XIIPTBZUKH2157-25-18 17:10:008.8[facility] PmsetsnJYNPDKGHLT7925-68-39 17:10:000.8 [facility] QogmsksVPZEYWATVJ1316-07-24 17:10:001.3[facility] HermannHEMATOLOGY 2020-02-19 17:10:006.4[facility] WxkxalcCSTUIRNHIE2354-29-80 17:10:001.9[facility] XgknhpoHTDJCBCSWJ5508-66-77 17:10:000.8[facility] ArzaoogQLWRXMCKQC8191-12-86 17:10:000.1[facility] JehztpmWOKNREGOVI6109-07-84 17:10:000.1[facility] SSFBF7933-12-34 17:10:00Yellow *NA*(02/19/20 11:10 AM)[facility] XYQXZ7417-94-27 17:10:00Clear (02/19/20 11:10 AM)[facility] CNRJZ9539-40-01 17:10:00 Test Item Value Reference Range Interpretation Comments UA Spec Grav (test code = UA Spec 1.006 1 Grav) [facility] ERAMT6209-59-26 17:10:00 Test Item Value Reference Range Interpretation Comments UA pH (test code = UA pH) 6.0 1 5.0-8.0 [facility] RSKFI2085-65-02 17:10:00Negative *NA*(02/19/20 11:10 AM)[facility] MIOCY8613-90-41 17:10:00Small *ABN*(02/19/20 11:10 AM)[facility] MDVDF5644-39-83 17:10:00Negative (02/19/20 11:10 AM)[facility] LEVRS7222-57-83 17:10:00Negative (02/19/20 11:10 AM)[facility] JDMUC6771-00-30 17:10:001[facility] UWAFX0647-95-22 17:10:004[facility]annCHEM BUBWK7920-65-63 17:10:0086[facility]annCHEM QRRAZ4714-51-73 17:10:0015[facility]annCHE[facility] FRTIM5430-91-60 17:10:001.32[facility]annCHEM XWQAV3645-40-27 17:10:71075Ejtisrsm HermannCHEM FMNJG5506-62-65 17:10:003.6[facility]annCHE[facility] VBKSQ2189-31-22 17:10:87194 [facility]CHE[facility] ZKNVY0860-68-05 17:10:0028[facility]annCHEM PANEL 2020-02-19 17:10:009.3[facility]annCHEM JINPK7320-70-23 17:10:003.9[facility]annCHE[facility] IQDTG7333-42-38 17:10:0017[facility]annCHE[facility] OIVSW0204-89-18 17:10:0010[facility]annCHE[facility] NVLHP8239-76-56 17:10:008.6[facility]annCHE[facility] MFPQE2914-97-39 17:10:00 Test Item Value Reference Range Interpretation Comments B/C Ratio (test code = B/C Ratio) 11 1 6-25 [facility]annCHE[facility] AJOTY0129-30-91 17:10:0041[facility]annCHEM PANEL 2020-02-19 17:10:008.7[facility]annCHEM KWEXA5559-02-12 17:10:0092[facility]annCHEM MUBNJ9352-31-35 17:10:000.8[facility]annCHEM AARDM9796-20-27 17:10:004.8[facility]annCHEM QWHEX7691-95-69 17:10:00 Test Item Value Reference Range Interpretation Comments A/G Ratio (test code = A/G Ratio) 0.8 1 0.7-1.6 [facility]CHE[facility] HFTNK6415-36-12 17:10:94108Nxjrugcz HermannHEMATOLOGY 2020-02-19 17:10:009.4[facility] LfewalsUSTTVJZFYH0935-39-42 17:10:004.77[facility] UxtimijEVMSDWFQON4040-22-98 17:10:0012.9[facility] BneyjaxNDITJRSQCZ4196-66-74 17:10:0039.6[facility] QmjcmxbCKHSOXCDMQ2310-45-23 17:10:0083.0[facility] ANACQKCGPA0821-81-26 17:10:00 Test Item Value Reference Range Interpretation Comments MCH (test code = MCH) 27.1 pg 27.0-31.0 [facility] FcfzlfgOLITUHPGDI2530-41-55 17:10:0032.6[facility] HermannHEMATOLOGY 2020-02-19 17:10:0014.9[facility] IxhmetwLQNQSLIGHX2869-89-77 17:10:42701Jjkaozqk LvhlllkOGGVDWCDLI8930-65-36 17:10:008.8[facility] QpeglrvXHHRHERIAD6352-06-89 17:10:0068.5[facility] NyrkoijPQWKLRCQTM2682-08-94 17:10:0020.6[facility] OANBDTKOZK1703-23-44 17:10:008.8[facility] ExhiixzTGHNGHDYEE6436-61-18 17:10:000.8 [facility] ZgcenlrNBXCXHOOPC6466-89-76 17:10:001.3[facility] HermannHEMATOLOGY 2020-02-19 17:10:006.4[facility] ZvdxlecYKTSZTYPWM4135-10-18 17:10:001.9[facility] JaoaxhdNTSWEQVMLC7976-29-47 17:10:000.8[facility] BrvysbzYMVEAGPPYX7365-12-65 17:10:000.1[facility] EecxnfsOGCUNPQJHN2425-10-63 17:10:000.1[facility] LIDOZ4532-53-51 17:10:00Yellow *NA*(02/19/20 11:10 AM)[facility] TLYSR9905-17-47 17:10:00Clear (02/19/20 11:10 AM)[facility] BLGIB2953-21-12 17:10:00 Test Item Value Reference Range Interpretation Comments UA Spec Grav (test code = UA Spec 1.006 1 Grav) [facility] CNRDE5413-85-26 17:10:00 Test Item Value Reference Range Interpretation Comments UA pH (test code = UA pH) 6.0 1 5.0-8.0 [facility] LYOQH4257-02-92 17:10:00Negative *NA*(02/19/20 11:10 AM)[facility] GBAXD5540-56-35 17:10:00Small *ABN*(02/19/20 11:10 AM)[facility] GKIBN0213-34-41 17:10:00Negative (02/19/20 11:10 AM)[facility] OTCLV6277-06-23 17:10:00Negative (02/19/20 11:10 AM)[facility] NPHMB4849-82-26 17:10:001[facility] VKRGB7781-18-69 17:10:004[facility]annCHEM TXMDI9038-84-16 17:10:0086[facility]annCHEM PHRLG0770-81-03 17:10:0015[facility]annCHEM AOSMP2720-79-05 17:10:001.32[facility]annCHEM EXZUR6247-86-33 17:10:10756Qfnsqzdv HermannCHEM KLLXX1492-15-67 17:10:003.6[facility]annCHEM FKKOK7186-37-76 17:10:56618 [facility]annCHE[facility] EMCCH6840-30-70 17:10:0028[facility]annCHEM PANEL 2020-02-19 17:10:009.3[facility]annCHEM VTFKK6523-20-58 17:10:003.9[facility]annCHEM ZXFKV5933-08-81 17:10:0017[facility]annCHEM VURQS1374-03-81 17:10:0010[facility]annCHEM BFMBL7318-75-81 17:10:008.6[facility]annCHEM RPSGV8102-27-40 17:10:00 Test Item Value Reference Range Interpretation Comments B/C Ratio (test code = B/C Ratio) 11 1 6-25 [facility]annCHE[facility] TVNFL1813-10-84 17:10:0041[facility]annCHEM PANEL 2020-02-19 17:10:008.7[facility]annCHEM BOVHB5333-85-28 17:10:0092[facility]annCHEM IHRIS3308-04-24 17:10:000.8[facility]annCHEM WIYCE4971-15-02 17:10:004.8[facility]annCHEM UDGEX8116-67-44 17:10:00 Test Item Value Reference Range Interpretation Comments A/G Ratio (test code = A/G Ratio) 0.8 1 0.7-1.6 [facility]annCHE[facility] KPTZL2614-35-58 17:10:34554Qnnpkjuz HermannHEMATOLOGY 2020-02-19 17:10:009.4[facility] QioylqsTZGRRKXAQS8723-94-16 17:10:004.77[facility] NtgfrhkCPXZUVQQAX1335-36-99 17:10:0012.9[facility] XbecfwoDBYXFDFAYP8729-98-20 17:10:0039.6[facility] WouwitjLIECJRFNXC3149-82-04 17:10:0083.0[facility] OJJAUPUDMS7558-04-72 17:10:00 Test Item Value Reference Range Interpretation Comments MCH (test code = MCH) 27.1 pg 27.0-31.0 [facility] HsiljbrBCFYYSPLIH5117-68-03 17:10:0032.6[facility] HermannHEMATOLOGY 2020-02-19 17:10:0014.9[facility] ZdtawryZLNONGIBBU7385-90-80 17:10:39246Hhcuisqt KxpbdatHEFKPDGOQU7646-06-72 17:10:008.8[facility] PkflrpfJEQNONPHEX1571-52-78 17:10:0068.5[facility] RjhtijyKRCYDCRXRQ7743-05-38 17:10:0020.6[facility] AYKZMZVCPF1178-76-67 17:10:008.8[facility] BlhyilrRXPRJFJYGV0613-37-26 17:10:000.8 [facility] LogjahmPUXUXIMVCO3818-95-50 17:10:001.3[facility] HermannHEMATOLOGY 2020-02-19 17:10:006.4[facility] TgwdgvhBAVGBNCSQA2369-45-15 17:10:001.9[facility] RoadfxgCBMCBRAQHH3528-66-00 17:10:000.8[facility] VvoibosDCNFQWFOVK7209-71-47 17:10:000.1[facility] QxgqixcACYKPZBBRI3619-53-19 17:10:000.1[facility] QLMQM5585-35-10 17:10:00Yellow *NA*(02/19/20 11:10 AM)[facility] SFGOE8717-99-87 17:10:00Clear (02/19/20 11:10 AM)[facility] PNEGX8094-55-98 17:10:00 Test Item Value Reference Range Interpretation Comments UA Spec Grav (test code = UA Spec 1.006 1 Grav) [facility] LUZXM6746-70-54 17:10:00 Test Item Value Reference Range Interpretation Comments UA pH (test code = UA pH) 6.0 1 5.0-8.0 [facility] WJIST2186-75-14 17:10:00Negative *NA*(02/19/20 11:10 AM)[facility] XJUKU9272-19-58 17:10:00Small *ABN*(02/19/20 11:10 AM)[facility] RQCSB8331-80-00 17:10:00Negative (02/19/20 11:10 AM)[facility] DZRLK1867-75-12 17:10:00Negative (02/19/20 11:10 AM)[facility] FQTQE0975-06-06 17:10:001[facility] TPSBW9132-57-26 17:10:004[facility]annCHEM LVATO5411-47-89 17:10:0086[facility]annCHEM AFEOT4306-66-04 17:10:0015[facility]annCHEM GYSDR7317-65-12 17:10:001.32[facility]annCHEM TFPYF8320-33-59 17:10:95457Wfjotlyb HermannCHEM OMLIM1073-60-96 17:10:003.6[facility]annCHEM QWJBL4192-31-30 17:10:15946 [facility]annCHE[facility] RLXXM5489-43-26 17:10:0028[facility]annCHEM PANEL 2020-02-19 17:10:009.3[facility]annCHEM LUEDE0240-41-70 17:10:003.9[facility]annCHEM HOGBD4557-14-88 17:10:0017[facility]annCHEM KXIQF6547-57-46 17:10:0010[facility]annCHEM OTVDN0784-60-82 17:10:008.6[facility]annCHEM KRJLX8568-52-10 17:10:00 Test Item Value Reference Range Interpretation Comments B/C Ratio (test code = B/C Ratio) 11 1 6-25 [facility]annCHE[facility] YWTUI5019-36-50 17:10:0041[facility]annCHEM PANEL 2020-02-19 17:10:008.7[facility] HermannCHEM STOAK9783-01-54 17:10:0092[facility]annCHEM DXZUP6947-60-09 17:10:000.8[facility]annCHEM KQZWE6994-06-96 17:10:004.8[facility]annCHEM DSOZU3115-29-99 17:10:00 Test Item Value Reference Range Interpretation Comments A/G Ratio (test code = A/G Ratio) 0.8 1 0.7-1.6 [facility]annCHE[facility] HYEUC5756-25-85 17:10:84747Icywbpcg HermannHEMATOLOGY 2020-02-19 17:10:009.4[facility] LokukqcNQFKUSVXYS2313-91-61 17:10:004.77[facility] IpgxaopUQCGQIZUYX6114-74-01 17:10:0012.9[facility] QzfggiqJZEOGJTJTI1773-87-88 17:10:0039.6[facility] SzrhbnxMTDDYFTXGP2923-48-16 17:10:0083.0[facility] LYWKBLFFSF0287-21-05 17:10:00 Test Item Value Reference Range Interpretation Comments MCH (test code = MCH) 27.1 pg 27.0-31.0 [facility] MlmuawzGMUYHDMDHW0939-47-18 17:10:0032.6[facility] HermannHEMATOLOGY 2020-02-19 17:10:0014.9[facility] QyhonnpAKWWMYWLFJ4084-94-30 17:10:84146Pekmemam EluqfynEQNOJHGMKS0023-65-76 17:10:008.8[facility] CorobltRCMUPFYYZG2956-78-82 17:10:0068.5[facility] PruguasTMOYCCVSAZ3338-22-54 17:10:0020.6[facility] OPFPUXNSJO1985-28-16 17:10:008.8[facility] TxrftwaQNAAMOBPZW4026-82-46 17:10:000.8 [facility] HhciortRVGVHMKETZ4307-48-54 17:10:001.3[facility] HermannHEMATOLOGY 2020-02-19 17:10:006.4[facility] YfcjrrmVYHKUSZAHH3313-86-42 17:10:001.9[facility] DhjgrraRWWQNAKCLA6722-45-77 17:10:000.8[facility] NqcrcreQHRNDQCDLU1247-33-75 17:10:000.1[facility] FqtgjdqLINWRYEWES7141-48-33 17:10:000.1[facility] ENHPT8153-12-77 17:10:00Yellow *NA*(02/19/20 11:10 AM)[facility] EGKBO0068-71-64 17:10:00Clear (02/19/20 11:10 AM)[facility] DOHXT7752-98-84 17:10:00 Test Item Value Reference Range Interpretation Comments UA Spec Grav (test code = UA Spec 1.006 1 Grav) [facility] HYRKY6937-41-29 17:10:00 Test Item Value Reference Range Interpretation Comments UA pH (test code = UA pH) 6.0 1 5.0-8.0 [facility] OQUHA3211-69-45 17:10:00Negative *NA*(02/19/20 11:10 AM)[facility] NGAIY0184-89-13 17:10:00Small *ABN*(02/19/20 11:10 AM)[facility] WXGRN9655-74-63 17:10:00Negative (02/19/20 11:10 AM)[facility] ASGNN6674-42-30 17:10:00Negative (02/19/20 11:10 AM)[facility] SITYI2252-37-41 17:10:001[facility] CLTOO9450-88-01 17:10:004[facility] HermannCHEM WSKJY5413-51-42 17:10:0086[facility] HermannCHEM RNKPN0184-82-40 17:10:0015[facility] HermannCHEM VMUGL3954-38-79 17:10:001.32[facility] HermannCHEM CQEDT9373-25-10 17:10:70907Swwglnli HermannCHEM EDXKT7697-71-78 17:10:003.6[facility]annCHEM IPCKB6954-72-69 17:10:66695 [facility]annCHE[facility] UOBSB8812-85-83 17:10:0028[facility] HermannCHEM PANEL 2020-02-19 17:10:009.3[facility] HermannCHEM BKNRV3635-37-19 17:10:003.9[facility] HermannCHEM VHEZN6488-91-48 17:10:0017[facility]annCHEM XWZVW2850-37-96 17:10:0010[facility]annCHEM UHVCE1244-76-84 17:10:008.6[facility] HermannCHEM GHZAZ4124-21-50 17:10:00 Test Item Value Reference Range Interpretation Comments B/C Ratio (test code = B/C Ratio) 11 1 6-25 [facility]annCHEM VKYHK5777-93-01 17:10:0041[facility]annCHEM PANEL 2020-02-19 17:10:008.7[facility] HermannCHEM CMHCS7062-06-91 17:10:0092[facility]annCHEM XLWVP0410-69-74 17:10:000.8[facility]annCHEM SYPWM5342-68-69 17:10:004.8[facility]annCHEM ODMDL6156-64-86 17:10:00 Test Item Value Reference Range Interpretation Comments A/G Ratio (test code = A/G Ratio) 0.8 1 0.7-1.6 [facility]annCHEM OQFAS8102-09-84 17:10:55312Yzmmaoem HermannHEMATOLOGY 2020-02-19 17:10:009.4[facility] YbqsiicQAIEYCBORH4635-84-29 17:10:004.77[facility] CyjxewqWVNXHKXWZC3026-75-13 17:10:0012.9[facility] QypturoAPKKUAHDXF0232-99-61 17:10:0039.6[facility] XkjbfyrECLUZLXRUL3613-53-01 17:10:0083.0[facility] PFYSZKWUBO6412-86-68 17:10:00 Test Item Value Reference Range Interpretation Comments MCH (test code = MCH) 27.1 pg 27.0-31.0 [facility] SpdxgmwUKNQAVTARY8402-28-20 17:10:0032.6[facility] HermannHEMATOLOGY 2020-02-19 17:10:0014.9[facility] ZozrkpnHNXVMNTVKE7378-71-74 17:10:69060Havvvxvo EebgpmhNYKYGYJAXT9818-73-79 17:10:008.8[facility] UngxrkyDTZFCDCUQC9973-25-41 17:10:0068.5[facility] AdxspsdRVKDETFBPC6977-61-30 17:10:0020.6[facility] FNJOVJFRQC1733-02-33 17:10:008.8[facility] CpoajlyCCKPYUNXYS0208-99-71 17:10:000.8 [facility] SrtihihIDZLGTRSLD4244-41-51 17:10:001.3[facility] HermannHEMATOLOGY 2020-02-19 17:10:006.4[facility] PpyyjhxKYYEWXWLUL0586-24-14 17:10:001.9[facility] AvfhbffBCAWHGAYCN3334-80-67 17:10:000.8[facility] HcqzbkvKKIEMJPJVZ8430-54-72 17:10:000.1[facility] NhgzntkMSZJPNSLVO4319-71-55 17:10:000.1[facility] DHFYW9933-33-19 17:10:00Yellow *NA*(02/19/20 11:10 AM)[facility] PEYGP4026-69-53 17:10:00Clear (02/19/20 11:10 AM)[facility] FRDKJ2337-55-46 17:10:00 Test Item Value Reference Range Interpretation Comments UA Spec Grav (test code = UA Spec 1.006 1 Grav) [facility] BCBUE2489-38-05 17:10:00 Test Item Value Reference Range Interpretation Comments UA pH (test code = UA pH) 6.0 1 5.0-8.0 [facility] GBEDQ7371-55-31 17:10:00Negative *NA*(02/19/20 11:10 AM)[facility] MAEEL8934-43-16 17:10:00Small *ABN*(02/19/20 11:10 AM)[facility] LPYVZ4223-52-24 17:10:00Negative (02/19/20 11:10 AM)[facility] VXPHN3714-77-02 17:10:00Negative (02/19/20 11:10 AM)[facility] XKJPD1995-79-38 17:10:001[facility] JQFIF7550-55-33 17:10:004[facility] HermannCHEM TYVMC6332-73-81 17:10:0086[facility] HermannCHEM EYSJI7881-82-24 17:10:0015[facility] HermannCHEM UYJNE6100-61-10 17:10:001.32[facility] HermannCHEM RPWRL1529-97-36 17:10:40303Nohzeupz HermannCHEM ZZMQX2221-21-12 17:10:003.6[facility] HermannCHEM PWZJC9019-72-53 17:10:41503 [facility]annCHEM TPBHF1375-19-30 17:10:0028[facility] HermannCHEM PANEL 2020-02-19 17:10:009.3[facility] HermannCHEM LARKX3285-49-62 17:10:003.9[facility] HermannCHEM UDOUL3297-70-80 17:10:0017[facility] HermannCHEM YCQGE5342-65-52 17:10:0010[facility] HermannCHEM HHGOO4966-98-82 17:10:008.6[facility] HermannCHEM FPVZN3122-29-20 17:10:00 Test Item Value Reference Range Interpretation Comments B/C Ratio (test code = B/C Ratio) 11 1 6-25 [facility]annCHEM AXWSG3953-40-51 17:10:0041[facility] HermannCHEM PANEL 2020-02-19 17:10:008.7[facility] HermannCHEM LNPGZ0153-39-22 17:10:0092[facility] HermannCHEM FTJGV1491-96-44 17:10:000.8[facility] HermannCHEM WRYJR7273-80-97 17:10:004.8[facility] HermannCHEM SQRCQ4081-21-69 17:10:00 Test Item Value Reference Range Interpretation Comments A/G Ratio (test code = A/G Ratio) 0.8 1 0.7-1.6 [facility]annCHEM NIKRP6575-19-39 17:10:04240Jvaaxjlk HermannHEMATOLOGY 2020-02-19 17:10:009.4[facility] HjvbrlkKMSFVDATZU8463-50-16 17:10:004.77[facility] YtwuqqxUOJBZGYZMX8456-35-01 17:10:0012.9[facility] DvurrhnCVGYFIUNGE3479-39-60 17:10:0039.6[facility] MflpcszLIDUCTBFFA6329-34-63 17:10:0083.0[facility] IZRATKCNDJ2292-35-29 17:10:00 Test Item Value Reference Range Interpretation Comments MCH (test code = MCH) 27.1 pg 27.0-31.0 [facility] IrwugpdBEBXIADEAZ0662-73-94 17:10:0032.6[facility] HermannHEMATOLOGY 2020-02-19 17:10:0014.9[facility] DsqmuhkVXZUSBQWWY5244-08-57 17:10:74967Wgfuhpze TumompaASHBPQUUCV5084-04-09 17:10:008.8[facility] UctpigpNVSSBHXREH3632-29-76 17:10:0068.5[facility] FwfxhfrRPYXTYDDIN9457-52-09 17:10:0020.6[facility] OHQXWFORLG2123-28-71 17:10:008.8[facility] HnvvfuqYKJVUOXXBE8274-11-14 17:10:000.8 [facility] EopzdtjRHMCTFHQMD7923-65-20 17:10:001.3[facility] HermannHEMATOLOGY 2020-02-19 17:10:006.4[facility] FlptomwVAHSZLUSOJ3661-55-86 17:10:001.9[facility] IyppywiGLENYGMOYF4616-42-33 17:10:000.8[facility] BnxtsuxOOOEWKTDXZ3641-57-60 17:10:000.1[facility] TievttvROPNJQTQAC3724-07-16 17:10:000.1[facility] HNKAU3697-46-70 17:10:00Yellow *NA*(02/19/20 11:10 AM)[facility] ZVZRI0055-48-37 17:10:00Clear (02/19/20 11:10 AM)[facility] KZCHY0513-36-97 17:10:00 Test Item Value Reference Range Interpretation Comments UA Spec Grav (test code = UA Spec 1.006 1 Grav) [facility] IVNYU2428-04-92 17:10:00 Test Item Value Reference Range Interpretation Comments UA pH (test code = UA pH) 6.0 1 5.0-8.0 [facility] XSNAC6999-92-83 17:10:00Negative *NA*(02/19/20 11:10 AM)[facility] JMQBB3034-46-56 17:10:00Small *ABN*(02/19/20 11:10 AM)[facility] ASSFZ5023-43-41 17:10:00Negative (02/19/20 11:10 AM)[facility] ARRUH5480-58-64 17:10:00Negative (02/19/20 11:10 AM)[facility] AHJFB0693-51-03 17:10:001[facility] VQVAP6176-00-81 17:10:004[facility]annCHE[facility] LASFP4518-88-12 17:10:0086[facility] ZOJDE7961-83-10 17:10:0015[facility] NCGLE5300-99-68 17:10:001.32[facility] DDHVV2399-25-11 17:10:35488Sllacmgj [facility]annCHEM HXMVG1539-28-90 17:10:003.6[facility]annCHE[facility] KPNAY8695-66-89 17:10:02190 [facility] QPJEK2163-03-30 17:10:0028[facility]annCHE[facility] PANEL 2020-02-19 17:10:009.3[facility] ATIBI0099-11-99 17:10:003.9[facility] LBMGU3784-01-11 17:10:0017[facility] JYLCE8249-66-58 17:10:0010[facility] IOSWT5670-73-72 17:10:008.6[facility]CHE[facility] IYJAX8594-04-96 17:10:00 Test Item Value Reference Range Interpretation Comments B/C Ratio (test code = B/C Ratio) 11 1 6-25 [facility] NQLMN3341-39-79 17:10:0041[facility]CHE[facility] PANEL 2020-02-19 17:10:008.7[facility]CHE[facility] LBCCB9627-62-95 17:10:0092[facility] SVSFT8924-14-73 17:10:000.8[facility] IJQVC1936-78-18 17:10:004.8[facility]CHE[facility] PHDIP4285-30-29 17:10:00 Test Item Value Reference Range Interpretation Comments A/G Ratio (test code = A/G Ratio) 0.8 1 0.7-1.6 [facility] PWYDQ9925-43-85 17:10:33350Gdgkzsji HermannHEMATOLOGY 2020-02-19 17:10:009.4[facility] SqdosdaATEGHYYEBO5584-68-11 17:10:004.77[facility] KxwuupxHCTHUQONWD3499-87-51 17:10:0012.9[facility] XvvmptwHBZFZGYMVZ2183-59-84 17:10:0039.6[facility] CtxhodbVEPMXJQESV0519-00-73 17:10:0083.0[facility] MZGLGLUXCH8036-87-32 17:10:00 Test Item Value Reference Range Interpretation Comments MCH (test code = MCH) 27.1 pg 27.0-31.0 [facility] UbwkqntPZQBIJTOIE7517-67-29 17:10:0032.6[facility]annHEMATOLOGY 2020-02-19 17:10:0014.9[facility] XjakljxUGEWKKBWXW8319-79-25 17:10:49991Hrjqnopf UgcafzpAFDGINUVXY1475-51-22 17:10:008.8[facility] MyqxlivYNZGUOQGSQ7029-29-42 17:10:0068.5[facility] LsofsuhBYEICUVNPS7219-62-65 17:10:0020.6[facility] [place] XEPRVYCEWA8103-23-60 17:10:008.8[facility] WembzlgTOSTIPNWXN8058-27-33 17:10:000.8 [facility] JzmybveFGBVEZKBYT8083-93-10 17:10:001.3[facility]annHEMATOLOGY 2020-02-19 17:10:006.4[facility] TfhufcmAWZCYMLSLS6059-01-64 17:10:001.9[facility] AvtsziqLFJQZDYXTX8908-31-40 17:10:000.8[facility] GdhegayELNRPUOQBV1672-17-70 17:10:000.1[facility] RtsibemECQBLLFGEA4832-78-46 17:10:000.1[facility] SQTPI0987-53-50 17:10:00Yellow *NA*(02/19/20 11:10 AM)[facility] DZLEY5359-49-86 17:10:00Clear (02/19/20 11:10 AM)[facility] MXPCW3050-13-57 17:10:00 Test Item Value Reference Range Interpretation Comments UA Spec Grav (test code = UA Spec 1.006 1 Grav) [facility] OGEGL9582-29-23 17:10:00 Test Item Value Reference Range Interpretation Comments UA pH (test code = UA pH) 6.0 1 5.0-8.0 [facility] UFLGK9387-56-90 17:10:00Negative *NA*(02/19/20 11:10 AM)[facility] APEUU5398-82-13 17:10:00Small *ABN*(02/19/20 11:10 AM)[facility] BFNKL8282-48-02 17:10:00Negative (02/19/20 11:10 AM)[facility] FNOKS2972-65-90 17:10:00Negative (02/19/20 11:10 AM)[facility] HPFUN3841-57-49 17:10:001[facility] DRKLJ3642-02-04 17:10:004[facility]annCHEM IGYIX7359-15-06 17:10:0086[facility]annCHEM IAMLC0832-66-79 17:10:0015[facility]annCHEM OKHXN4813-84-47 17:10:001.32[facility]annCHE[facility] RLOXQ1069-68-75 17:10:45352Qwoopsvw [facility]annCHEM TZJAQ2436-34-43 17:10:003.6[facility]annCHEM MOCUR3020-84-53 17:10:36294 [facility]CHE[facility] HOFBI7381-63-38 17:10:0028[facility]annCHEM PANEL 2020-02-19 17:10:009.3[facility]annCHEM GSXOD0966-08-31 17:10:003.9[facility]annCHEM OKVNO0725-38-42 17:10:0017[facility]annCHE[facility] WIZTG2339-11-06 17:10:0010[facility]annCHE[facility] QZIHL2323-97-31 17:10:008.6[facility]annCHEM BLULW1302-93-68 17:10:00 Test Item Value Reference Range Interpretation Comments B/C Ratio (test code = B/C Ratio) 11 1 6-25 [facility]CHE[facility] OEEUD0248-50-55 17:10:0041[facility]annCHEM PANEL 2020-02-19 17:10:008.7[facility]annCHEM JUPCK6276-17-14 17:10:0092[facility]annCHE[facility] UUENI7504-28-92 17:10:000.8[facility]annCHEM KDROL9052-16-33 17:10:004.8[facility]annCHEM WYUYU2412-99-02 17:10:00 Test Item Value Reference Range Interpretation Comments A/G Ratio (test code = A/G Ratio) 0.8 1 0.7-1.6 [facility]annCHE[facility] ATHES0506-22-33 17:10:88989Zafqoqhv [facility]annHEMATOLOGY 2020-02-19 17:10:009.4[facility] VpoagvqMAGLTSAXSP2321-73-69 17:10:004.77[facility] IjkrckxKVROYCMQJS5371-44-68 17:10:0012.9[facility] OikgweqVFAMCMWQVC5199-08-37 17:10:0039.6[facility] HygalnvBNZBCRPFNL4893-17-43 17:10:0083.0[facility] [place] LGJMAFQNVK3276-96-36 17:10:00 Test Item Value Reference Range Interpretation Comments MCH (test code = MCH) 27.1 pg 27.0-31.0 [facility] EfzlppsKOSTNBZYSL0597-07-64 17:10:0032.6[facility]annHEMATOLOGY 2020-02-19 17:10:0014.9[facility] GbzjaudERAZXDNJJX9355-45-20 17:10:10428Mgrrlvoz OkpisivMUXPZGAFRD2646-85-79 17:10:008.8[facility] LfrxmekRTXUGCOVUJ9219-57-70 17:10:0068.5[facility] WsggvafIAWGRDPBHK1552-97-92 17:10:0020.6[facility] ZYPPHHKYJG2976-03-47 17:10:008.8[facility] MhqwyimOEYWKSOSTL6401-95-09 17:10:000.8 [facility] RwsadioXYXORIMCAU7804-58-36 17:10:001.3[facility]annHEMATOLOGY 2020-02-19 17:10:006.4[facility] ErpausoRIWECINPGM6260-87-72 17:10:001.9[facility] QjmnndtSXHWSCUANY6348-93-67 17:10:000.8[facility] FddgegnTPGXRTEQIV9598-92-40 17:10:000.1[facility] IxreetfFROWBWPFIY3096-82-11 17:10:000.1[facility] RAOGM6126-58-55 17:10:00Yellow *NA*(02/19/20 11:10 AM)[facility] JJYPQ3240-65-10 17:10:00Clear (02/19/20 11:10 AM)[facility] FXIKA6905-51-45 17:10:00 Test Item Value Reference Range Interpretation Comments UA Spec Grav (test code = UA Spec 1.006 1 Grav) [facility] FYCIV5903-17-29 17:10:00 Test Item Value Reference Range Interpretation Comments UA pH (test code = UA pH) 6.0 1 5.0-8.0 [facility] MJTFR5392-34-42 17:10:00Negative *NA*(02/19/20 11:10 AM)[facility] RHJQV9055-35-60 17:10:00Small *ABN*(02/19/20 11:10 AM)[facility] GBDHJ5714-70-48 17:10:00Negative (02/19/20 11:10 AM)[facility] GIASN1240-77-25 17:10:00Negative (02/19/20 11:10 AM)[facility] GLHPP4844-13-98 17:10:001[facility] LDPXS2458-98-84 17:10:004[facility]annCHEM BZXHB4845-45-46 17:10:0086[facility]annCHE[facility] RJPLM8953-27-57 17:10:0015[facility]annCHE[facility] OJJPX0009-94-98 17:10:001.32[facility]annCHE[facility] ZQEXC8869-92-94 17:10:12866Ejmvcuox HermannCHEM FNLKT3690-84-83 17:10:003.6[facility]annCHE[facility] ZDLMA2380-75-97 17:10:01227 [facility] QMJRC0502-03-83 17:10:0028[facility]annCHEM PANEL 2020-02-19 17:10:009.3[facility]annCHE[facility] ZIPPM6568-03-46 17:10:003.9[facility]annCHE[facility] EBUAQ4683-55-87 17:10:0017[facility]annCHE[facility] XFPKU3614-76-54 17:10:0010[facility]annCHE[facility] DKIOX7402-29-90 17:10:008.6[facility]annCHE[facility] ZRNFS3086-10-66 17:10:00 Test Item Value Reference Range Interpretation Comments B/C Ratio (test code = B/C Ratio) 11 1 6-25 [facility] VJAXZ1198-02-26 17:10:0041[facility]annCHEM PANEL 2020-02-19 17:10:008.7[facility]annCHE[facility] EQDRZ0805-97-74 17:10:0092[facility]annCHE[facility] LNYOH8013-75-35 17:10:000.8[facility]annCHE[facility] AIBCH7626-23-69 17:10:004.8[facility]annCHE[facility] QQQKW4707-72-23 17:10:00 Test Item Value Reference Range Interpretation Comments A/G Ratio (test code = A/G Ratio) 0.8 1 0.7-1.6 [facility] IQKUK5026-55-15 17:10:30362Qrgqksvp HermannHEMATOLOGY 2020-02-19 17:10:009.4[facility] KvjiszvOZWVQLVZEB0882-51-33 17:10:004.77[facility] HmmrdbiTFXPZIXCVW4236-04-83 17:10:0012.9[facility] PtueehhUERLJWBZXG4827-44-55 17:10:0039.6[facility] XfglxpkJFWYNIVHEA1915-60-81 17:10:0083.0[facility] [place] NCMSHLJAFZ8097-06-51 17:10:00 Test Item Value Reference Range Interpretation Comments MCH (test code = MCH) 27.1 pg 27.0-31.0 [facility] ZxgdsxdJEHIQVHZVP3143-86-66 17:10:0032.6[facility]annHEMATOLOGY 2020-02-19 17:10:0014.9[facility] WwrqlhrFAMLAFGHOC5724-28-65 17:10:23891Isrmolop OopekfxACHFJJDQVL6272-30-00 17:10:008.8[facility] YmazhukEUKEHGCSYJ1558-58-89 17:10:0068.5[facility] MyupgfvKPJEFAAXEL3434-22-61 17:10:0020.6[facility] [place] SYJGYOFEGT6157-21-41 17:10:008.8[facility] UlxwemjBWTUSCJMPU5449-16-92 17:10:000.8 [facility] StntfrtMZMXNRRQAL1005-92-51 17:10:001.3[facility]annHEMATOLOGY 2020-02-19 17:10:006.4[facility] MgkpjlxQAEQCRTKTB8654-05-66 17:10:001.9[facility] MjlxavzNQNNPEWKPW7414-48-58 17:10:000.8[facility] SdxzckySKTGGWOFXF9705-72-15 17:10:000.1[facility] OwiwevdNZZRNXJYOQ4764-42-84 17:10:000.1[facility] JXTPH0401-12-04 17:10:00Yellow *NA*(02/19/20 11:10 AM)[facility] ECULQ3634-57-60 17:10:00Clear (02/19/20 11:10 AM)[facility] SJPVF4666-48-98 17:10:00 Test Item Value Reference Range Interpretation Comments UA Spec Grav (test code = UA Spec 1.006 1 Grav) [facility] GGWAV9051-59-23 17:10:00 Test Item Value Reference Range Interpretation Comments UA pH (test code = UA pH) 6.0 1 5.0-8.0 [facility] EPLWX4592-37-53 17:10:00Negative *NA*(02/19/20 11:10 AM)[facility] ZNDIH8248-59-90 17:10:00Small *ABN*(02/19/20 11:10 AM)[facility] XBDUN5833-65-00 17:10:00Negative (02/19/20 11:10 AM)[facility] PTWHG9232-46-89 17:10:00Negative (02/19/20 11:10 AM)[facility] AAGEQ4792-85-12 17:10:001[facility] PXDWL7199-09-15 17:10:004[facility]annCHEM BZCEV4306-54-29 17:10:0086[facility]annCHEM RHNVF7809-51-95 17:10:0015[facility]annCHEM JSVJQ7372-15-45 17:10:0086[facility]annCHEM WICHL8801-30-25 17:10:0015[facility]annCHE[facility] RLQAK9493-23-28 17:10:001.32[facility]annCHE[facility] HWOOW5038-44-27 17:10:58464 [facility] KXRZB7241-14-30 17:10:003.6[facility]annCHEM PANEL 2020-02-19 17:10:23670Ntdtamtk HermannCHEM ADUGX9071-36-72 17:10:0028[facility]annCHEM AKUWS6303-81-67 17:10:009.3[facility]annCHE[facility] PPHZR8625-18-60 17:10:003.9[facility]annCHE[facility] FJLGV5723-23-85 17:10:0017[facility]annCHE[facility] WTWGB2368-15-43 17:10:0010[facility]annCHE[facility] NTGHT4862-33-24 17:10:008.6 [facility]CHE[facility] ZXYRI9836-02-10 17:10:00 Test Item Value Reference Range Interpretation Comments B/C Ratio (test code = B/C Ratio) 11 1 6-25 [facility]CHE[facility] IAKUP8382-91-07 17:10:0041[facility]annCHEM PANEL 2020-02-19 17:10:008.7[facility]annCHEM IYPPU8873-73-37 17:10:0092[facility]annCHE[facility] SQSMZ9480-24-97 17:10:000.8[facility]annCHE[facility] GGTEQ0574-17-70 17:10:004.8[facility]annCHEM SKTTA9158-76-20 17:10:00 Test Item Value Reference Range Interpretation Comments A/G Ratio (test code = A/G Ratio) 0.8 1 0.7-1.6 [facility]CHE[facility] KXJHM3855-56-98 17:10:66017Woeismrz HermannHEMATOLOGY 2020-02-19 17:10:009.4[facility] RpjlhrgQPRXGVRXXG8095-73-14 17:10:004.77[facility] PzazvzzDLEICBVAVU7352-48-55 17:10:0012.9[facility] EowkbvcYIXPTQSNPO8800-62-45 17:10:0039.6[facility] UtxkyywKTTHUKZCSE7710-71-39 17:10:0083.0[facility] [place] LIJGZGPUGE0653-83-95 17:10:00 Test Item Value Reference Range Interpretation Comments MCH (test code = MCH) 27.1 pg 27.0-31.0 [facility] TuwoofyYLHHRYMOBJ1566-25-44 17:10:0032.6[facility] HermannHEMATOLOGY 2020-02-19 17:10:0014.9[facility] MayksurECAKDDYUCV8775-52-45 17:10:83200Walqdlet JtzbqlvTNINTXYCLX2674-70-93 17:10:008.8[facility] MocplzkKJVIANFYIT5834-24-10 17:10:0068.5[facility] KazlkgaHIKZHAYHXY8724-07-55 17:10:0020.6[facility] [place] BGRMZXUBYV8852-27-17 17:10:008.8[facility] AbwehqiAIZAGZAFLA2646-32-63 17:10:000.8 [facility] LwrettrOPZAMTWUTA8159-08-94 17:10:001.3[facility] HermannHEMATOLOGY 2020-02-19 17:10:006.4[facility] UtmllttTQRCYYKNQP0088-39-36 17:10:001.9[facility] PugbaoyBEQRZCCOTZ7376-31-76 17:10:000.8[facility] MnoqfjuVTQQHKVJIH3832-35-72 17:10:000.1[facility] GwdovcqCSYCMZNTPC8831-94-85 17:10:000.1[facility] HDZEL6376-68-40 17:10:00Yellow *NA*(02/19/20 11:10 AM)[facility] BHJNZ3632-58-84 17:10:00Clear (02/19/20 11:10 AM)[facility] XZQPP3678-21-88 17:10:00 Test Item Value Reference Range Interpretation Comments UA Spec Grav (test code = UA Spec 1.006 1 Grav) [facility] XTGRB2233-18-54 17:10:00 Test Item Value Reference Range Interpretation Comments UA pH (test code = UA pH) 6.0 1 5.0-8.0 [facility] SEIKA6034-40-25 17:10:00Negative *NA*(02/19/20 11:10 AM)[facility] PLWNF5991-45-57 17:10:00Small *ABN*(02/19/20 11:10 AM)[facility] WHCYB9996-52-85 17:10:00Negative (02/19/20 11:10 AM)[facility] BMGLN4415-23-55 17:10:00Negative (02/19/20 11:10 AM)[facility] XLFEO7520-09-14 17:10:001[facility] MAUQE4557-09-00 17:10:004[facility] UeglisyQPQHODAMJEER9311-87-05 14:36:51394 [facility] TzhplmfCLHPRVFJAYBX3377-96-83 14:36:004.1[facility] HermannELECTROLYTES 2019-09-01 14:36:24218Vhfzaotm LbxaivlZJYFTOSBWXKY9419-40-59 14:36:0025[facility] QlgmlbuOBKLNEOPELKT3593-13-17 14:36:0017[facility] HcfhbkxTJWEJOZUDXZT7387-34-41 14:36:001.2[facility] DnmpbnnKLQTMCLQKWSX4848-96-71 14:36:16445Osffhkba Ben KRXHQCZMXAWG7229-46-88 14:36:001.25[facility] ZvwoqvxMAVVVGNDBYHP1837-05-80 14:36:0012.6[facility] SayyhmqGDGFDOQSRLSW5001-50-88 14:36:0037.0[facility] VMHFIUKRCKLW3527-37-96 14:36:0016.0[facility] PukjxbtGEPFKXNSFOJI7991-20-60 14:36:0047[facility] AerjdukOILSNAYINSPM2004-91-94 14:36:00See Note *NA*(09/01/19 9:36 AM)[facility] PsmeonhFLRYPACRCUNJ7676-07-20 14:36:26282Lmyqoixc [place] FJVQDYZVNBXG7805-05-90 14:36:004.1[facility] NpmxhggJBJCKGKVLRIS1636-19-51 14:36:23734Zwaqkqcd UjvfbrjUBCANPTKVRMI4972-62-18 14:36:0025[facility] [place] MNFLUWFRECVZ4877-14-01 14:36:0017[facility] BkzoyvlFVWDEDSWVBIG4907-11-61 14:36:00 1.2[facility] CinjuusWOWPXZMUVRSK1932-46-36 14:36:04271Fdeiimys Ben NSIPYUPZWNNG3957-71-23 14:36:001.25[facility] ItxjvdyJVBBBWVECQKC3286-16-99 14:36:0012.6[facility] VmcpvcqQXIGRFDDWYJR2074-57-53 14:36:0037.0[facility] CSEKMABKZFTP9864-57-61 14:36:0016.0[facility] LdijvgeOKNCTDSSFZOL0553-45-29 14:36:0047[facility] ZnrovdoGGQWEDOBAWIB7253-68-90 14:36:00See Note *NA*(09/01/19 9:36 AM)[facility] JmureqfRFWKRUUWDOWL0186-64-13 14:36:79188Fvftsems [place] BOHDRFFGIHPY4631-72-60 14:36:004.1[facility] DfczlveSKVGRQOVIZVZ0890-41-00 14:36:25769Epsqxiop QjxydntVNCDDTEELIRK7350-16-37 14:36:0025[facility] AMYTYEHAULHI1444-17-04 14:36:0017[facility] VhhmtoqFQAVPLAPASTR5802-01-10 14:36:00 1.2[facility] XtmunzhETRPXFNUGAOI4104-96-85 14:36:72706Bjaoqrdo [place] ZICJDDSWHFYG9786-03-11 14:36:001.25[facility] EinluciZFRHZSDELFGX2530-28-02 14:36:0012.6[facility] YwtewcqSWQRTVIFURPR3370-94-57 14:36:0037.0[facility] [place] SBSQHMUKUYZB8338-11-44 14:36:0016.0[facility] BfezpysBXGKNZLJLYTA0295-89-65 14:36:0047[facility] FobmkxyXSFDMFWJGOKD0948-10-87 14:36:00See Note *NA*(09/01/19 9:36 AM)[facility] BntpnnmDBUGAHSJSWKB2442-04-36 14:36:48956Iqsjrduw [place] QUYKDYFJLEQY0233-98-06 14:36:004.1[facility] WkinkyhQNPNWZNTLTSR1988-60-73 14:36:94647Ulwcckwf KaqfyxgKSEWZHHINSOB8002-48-61 14:36:0025[facility] [place] TXMYZFCEVXAY8751-18-96 14:36:0017[facility] MigofgyPCAUXMNIUAXS6702-77-70 14:36:00 1.2[facility] SziivmkOSMHGGTVWQZJ2754-17-73 14:36:19791Onqxfdii [place] RPHJMWQTVEPQ3047-60-05 14:36:001.25[facility] YrnnrmkEBVOMJYWHJXH9468-12-02 14:36:0012.6[facility] ApcptjxNNIZSPSVXSWT0534-46-96 14:36:0037.0[facility] SQQVZHNRSMVR2555-89-76 14:36:0016.0[facility] NdecrosFYWMODZNYUXT0799-38-51 14:36:0047[facility] EpjdxhnMZMMAFLNYYCA1249-50-38 14:36:00See Note *NA*(09/01/19 9:36 AM)[facility] XukmycrIJNUOOGHJOON5858-03-43 14:36:36482Auszulza Ben TPPQQKLPPCIN0451-47-76 14:36:004.1[facility] CvqfafkNBWRGIFPONLK1344-22-32 14:36:40436Jbcjkrpb XbqduexPRYCIQVOWDOT3302-21-32 14:36:0025[facility] JPYOOLFOGYSU3822-67-29 14:36:0017[facility] MerulpiROUWLLQYGPME1376-02-28 14:36:00 1.2[facility] JokfpjkTRCDIQHGYSMY1006-91-22 14:36:38751Yxrvunlm [place] MWERTLKGIBLD3866-61-65 14:36:001.25[facility] RihegdxWVYGZLYBHCPM3086-28-53 14:36:0012.6[facility] UotwhcjYDBUTDTMVNRI5173-37-12 14:36:0037.0[facility] CRSXDOZYSHDW2321-66-22 14:36:0016.0[facility] TugnwybHZCEHRRPMJQJ9670-60-52 14:36:0047[facility] RqeeltnCNOKDVVSYNJG8008-60-30 14:36:00See Note *NA*(09/01/19 9:36 AM)[facility] RvmwhblYJLMJGJYHMVP3507-60-02 14:36:81079Sgzslfje Ben KDCBGPPZTMJV7613-98-93 14:36:004.1[facility] NfbazbiVRQWQIVTHOSX4233-82-24 14:36:14344Sepesfzc OvczwxlUWKHNGQHLXWU2758-45-59 14:36:0025[facility] [place] NDGLWWKPTMAQ5160-85-60 14:36:0017[facility] OntqtppGMJYGAIHVFVK5532-29-06 14:36:00 1.2[facility] OuhtwyvNGSMTBQSNTPU0645-89-26 14:36:38801Mpaorsaf Ben BAXMXBBXWAIE7347-99-30 14:36:001.25[facility] VyeuxenRPHXFANCZQJM8895-77-94 14:36:0012.6[facility] VlbozwfZGORXEPIXQWO7846-25-86 14:36:0037.0[facility] [place] OWWVAZUUWUAS4682-76-59 14:36:0016.0[facility] ComnepbWTLBMVSLPELI1228-32-74 14:36:0047[facility] BjglzblOHEXICFVAWWT3660-78-91 14:36:00See Note *NA*(09/01/19 9:36 AM)[facility] RuhavmyVEQETSMFYMGO0577-45-74 14:36:09033Htujgomj Ben QWMHRNZZFNMF8724-68-55 14:36:004.1[facility] AgnbnvqJFZWJGRVZETA1991-19-07 14:36:34629Fqzlprzk EmnjzheAGQBBPLGLRWN1373-09-72 14:36:0025[facility] DSDHTZTQYSMF3205-24-30 14:36:0017[facility] RgtpomxYFDHEIURRASE3039-43-07 14:36:00 1.2[facility] WfjpsctFPTZSIGTQZAK1481-00-21 14:36:97035Yxrtmyva [place] VOEGNEMBYJLS8857-49-24 14:36:001.25[facility] ZeakpvwTSVJWMFCEIWD2668-49-72 14:36:0012.6[facility] DweylixVIAEDNERNWZI6539-80-86 14:36:0037.0[facility] [place] ESACMSKUGAUD0967-37-61 14:36:0016.0[facility] FowfjozDGNHWJGSFIAD6097-91-19 14:36:0047[facility] VyffmivWJHNQZUZWTQH8044-31-69 14:36:00See Note *NA*(09/01/19 9:36 AM)[facility] FyoydgkIBOPVRNCYBMA0980-78-23 14:36:58809Rnoucevk Ben PXSMPICXRLIS4104-85-87 14:36:004.1[facility] DkddjkxZTZYOHEFIXXY9091-65-38 14:36:10276Vmpbxrkt FtefwlnPCQEYGKALPSJ9152-67-81 14:36:0025[facility] [place] ROKGGFZTAIVD3331-82-55 14:36:0017[facility] GcjksxqDOLMYNDJUQSJ1541-62-22 14:36:00 1.2[facility] TlknzswDTVRGTNJSWWX6085-30-22 14:36:36430Ofsvzewt [place] TMBCSSSTEYMZ8666-36-45 14:36:001.25[facility] TkjdvugQJWDFJFGSCYB3926-34-76 14:36:0012.6[facility] CyjgpqnOBIFOHEWLAAL4284-58-70 14:36:0037.0[facility] [place] XYWEVPTIHTAT9116-30-39 14:36:0016.0[facility] UjcwwkqUHDXQBEMLJDR3275-20-84 14:36:0047[facility] EiolamsMGOQGIPZTHQW4499-75-11 14:36:00See Note *NA*(09/01/19 9:36 AM)[facility] HmevetrRONBYSQYKDIL3384-15-84 14:36:70251Dgniffut Ben RIBQQIARRCHT2037-61-54 14:36:004.1[facility] VubyxjfXIJCQJCLKEAL5079-65-12 14:36:59541Pfxmhvwu WpwamkqSUNVWLDSCHDA9507-29-00 14:36:0025[facility] [place] AMIWXMEBEDFZ2903-38-01 14:36:0017[facility] YzqbgecFKDPBPHTYCUM1478-40-60 14:36:00 1.2[facility] FsccpxcHWDBYLQCEGAU1543-13-43 14:36:59604Teilkxvh Ben MYNTKLCVADFT0340-27-84 14:36:001.25[facility] RhpzexuVYDTWSRGMDAG6677-97-13 14:36:0012.6[facility] NvjsotuRBTMIUIEZZOB8175-39-83 14:36:0037.0[facility] DXXDPSHJIYHE0325-96-16 14:36:0016.0[facility] PnxllmnATRIJAXWJIXR7183-55-96 14:36:0047[facility] BnspbyrSABYRJRYZMWX5043-94-84 14:36:00See Note *NA*(09/01/19 9:36 AM)[facility] YwtqnibETBPDRAPOWZY4687-63-12 14:36:47720Qsnklado Ben WMCFVHSLYXJT8172-03-23 14:36:004.1[facility] WyxwtpmAUXLKIBSQVWH9096-37-76 14:36:98839Zgnmnxbx OpjbcdzCUVBKVTTFSZO8466-51-32 14:36:0025[facility] [place] ILQFFPVQMMLI8180-09-19 14:36:0017[facility] IezgcluGMYNAUIMESXZ2389-49-22 14:36:00 1.2[facility] PhqwkhvYDVRLVNMRGHE7064-57-82 14:36:04600Nhqhgdwt Ben MOQOVWRXBDDR1910-98-90 14:36:001.25[facility] VqezrymALYTXAPNFFKW6247-44-74 14:36:0012.6[facility] CrunseuKAGNZDGKGWBA2940-94-25 14:36:0037.0[facility] [place] DZKQWPATDSTE4219-08-41 14:36:0016.0[facility] KmhryznRBVIEFFXQOLW4522-40-18 14:36:0047[facility] AacfdbhNIEBYGQZZHYA0738-96-55 14:36:00See Note *NA*(09/01/19 9:36 AM)[facility] TLSKPUG1597-78-67 14:18:00Negative (09/01/19 9:18 AM)[facility] TRZVCIT4669-46-04 14:18:00Negative (09/01/19 9:18 AM)[facility] XGEJQSC0088-87-17 14:18:00Negative (09/01/19 9:18 AM)[facility] ZVLYTKK4444-49-52 14:18:00Negative (09/01/19 9:18 AM)[facility] OJFGVFZ8951-13-47 14:18:00Negative (09/01/19 9:18 AM)[facility] COWKRNS6253-07-34 14:18:00Negative (09/01/19 9:18 AM)[facility] KGDMAKF1562-93-09 14:18:00Negative (09/01/19 9:18 AM)[facility] PHEBGYP7448-77-87 14:18:00Negative (09/01/19 9:18 AM)[facility] LEOVLKN3612-44-07 14:18:00Negative (09/01/19 9:18 AM)[facility] EZRUZQR3680-10-42 14:18:00Negative (09/01/19 9:18 AM)[facility] TyzvztiJGYREGIAFA4926-47-06 14:25:00Not Detected (08/30/19 9:25 AM)[facility]osfonJOPSKSZMFX5641-90-51 14:25:00Not Detected (08/30/19 9:25 AM) [facility] GhhmardTNJQOUDIPH3069-95-45 14:25:00Not Detected (08/30/19 9:25 AM) [facility] OrfxrjzKASECOHWUT4643-09-66 14:25:00Not Detected (08/30/19 9:25 AM) [facility] NirsbqcBPBOGNXNGN8950-76-29 14:25:00Not Detected (08/30/19 9:25 AM) [facility] VbnjqkgFIUQRFLDVK1377-02-56 14:25:00Not Detected (08/30/19 9:25 AM) [facility] ErwdbakZMFBNDZVUS6693-07-05 14:25:00Not Detected (08/30/19 9:25 AM) [facility] SwlreusCBBJXVLCGD4599-06-43 14:25:00Not Detected (08/30/19 9:25 AM) [facility] LcsbivcFIITTJHTND1966-67-87 14:25:00Not Detected (08/30/19 9:25 AM) [facility] DaeeiwkXDKBGXDNHJ5468-36-20 14:25:00Not Detected (08/30/19 9:25 AM) [facility]annCARD[facility]AC NAHWQPY9024-24-88 13:17:78871Mskmtvbv HermannCARDIAC UKRTTLL6168-15-24 13:17:00<0.02[facility] HermannCHEM UMTTB3941-60-57 13:17:00 115[facility] HermannCHEM NPUGK4841-80-81 13:17:0011[facility]annCHEM PANEL 2019-07-16 13:17:001.19[facility] HermannCHEM HKTMX9447-83-53 13:17:52247Wtfvfiqo HermannCHEM AZDRS9277-92-41 13:17:004.5[facility] HermannCHEM HNUDU6160-33-05 13:17:10997Yfwnobap HermannCHEM JBURQ2712-88-41 13:17:0024[facility] HermannCHEM PFMNH5676-46-65 13:17:009.6[facility] HermannCHEM BHBVY8926-69-88 13:17:008.2 [facility]annCHEM BJDSI3190-03-56 13:17:003.9[facility] HermannCHEM PANEL 2019-07-16 13:17:0018[facility] HermannCHEM PWKJS0686-00-02 13:17:0019[facility] HermannCHEM UUKZE8492-04-83 13:17:0082[facility] HermannCHEM IMZWV1900-85-20 13:17:000.5[facility] HermannCHEM PQWEK2968-63-21 13:17:0015.5[facility] HermannCHEM IPHFA3053-95-21 13:17:00 Test Item Value Reference Range Interpretation Comments B/C Ratio (test code = B/C Ratio) 9 1 09-14 [facility]annCHEM EBRPH9688-05-95 13:17:004.3[facility] HermannCHEM PANEL 2019-07-16 13:17:00 Test Item Value Reference Range Interpretation Comments A/G Ratio (test code = A/G Ratio) 0.9 1 0.7-1.6 [facility]annCHEM ROMZR5386-14-72 13:17:0047[facility] HermannCHEM PANEL 2019-07-16 13:17:86089Kmursske HermannCHEM WWNHW5806-09-58 13:17:001.7[facility] WwkudzqLHAGTLLLOX3285-42-56 13:17:005.1[facility] DjrmyamVDTDRVMHLU7343-71-49 13:17:004.18[facility] CxgppamIRBRWORAWO8794-17-48 13:17:0010.7[facility] [place] OZBNLLAZUO2846-29-47 13:17:0033.2[facility] OvameunRRYFEPSUPD6056-95-85 13:17:00 79.5[facility] OlhcnvyYFFVQHRWZI3354-75-09 13:17:00 Test Item Value Reference Range Interpretation Comments MCH (test code = MCH) 25.7 pg 27.0-31.0 [facility] VwaymlvTQHTEJLYIY8392-75-43 13:17:0032.3[facility]annHEMATOLOGY 2019-07-16 13:17:0015.7[facility] YknuxpyCCZNSUVRBY6009-22-40 13:17:70562Jbhqmhot ImxrmeqTZLCUHRLTF9860-83-55 13:17:009.5[facility] FznzwnvIXERXCLMJY3221-60-32 13:17:0060.7[facility] JoxjnloEFBODQMWSZ4954-69-62 13:17:0029.4[facility] LURDCYYNOB0736-21-19 13:17:008.3[facility] HpeckdgAUIFZUELIW5721-55-89 13:17:001.1 [facility] RexowwfQCHCSQZGKT0174-45-18 13:17:000.5[facility]annHEMATOLOGY 2019-07-16 13:17:003.1[facility] RakitbuNHDFPNFEYG5682-22-65 13:17:001.5[facility] TdhzdyyHWSMUXWFMM3021-92-97 13:17:000.4[facility] HhziwibQYKUECZFOK0789-76-31 13:17:000.1[facility]annCARDIAC ZTVJRIZ6807-62-74 13:17:56204Sfcehfyn [place] CARDIAC BEFQXAA0498-61-15 13:17:00<0.02[facility]annCHEM YLXJP6340-30-24 13:17:37280Ylizjgkq HermannCHEM PGLFF0275-80-44 13:17:0011[facility]CHE[facility] ANUTH0532-93-01 13:17:001.19[facility]CHE[facility] IPOFW9664-53-06 13:17:44306 [facility] KNOTM1284-16-57 13:17:004.5[facility]annCHEM PANEL 2019-07-16 13:17:23484Pzivldbq HermannCHEM UMSYM1061-86-13 13:17:0024[facility] OALHF2970-81-49 13:17:009.6[facility]annCHE[facility] UKPOI9221-04-34 13:17:008.2[facility]CHE[facility] GVJUF4374-55-99 13:17:003.9[facility]CHE[facility] JLFKB3659-02-97 13:17:0018[facility]CHE[facility] EVZFG1502-79-23 13:17:0019 [facility] URUVF2063-25-00 13:17:0082[facility]annCHE[facility] PANEL 2019-07-16 13:17:000.5[facility]annCHE[facility] CKNXC6883-29-41 13:17:0015.5[facility]annCHE[facility] DZKIX2611-10-87 13:17:00 Test Item Value Reference Range Interpretation Comments B/C Ratio (test code = B/C Ratio) 9 1 6-25 [facility] OQBCP1641-71-93 13:17:004.3[facility]annCHE[facility] PANEL 2019-07-16 13:17:00 Test Item Value Reference Range Interpretation Comments A/G Ratio (test code = A/G Ratio) 0.9 1 0.7-1.6 [facility] SMODC8038-86-02 13:17:0047[facility]CHE[facility] PANEL 2019-07-16 13:17:39957Pdxpsmbf HermannCHEM CGZLT3113-97-67 13:17:001.7[facility] NzpunesLAHCNXWTXP7724-79-59 13:17:005.1[facility] YzmmubwQOVSBRDEET8441-58-35 13:17:004.18[facility] PlojlwuHNZBQIYPVA2353-35-58 13:17:0010.7[facility] FVYLTISWWN3007-61-58 13:17:0033.2[facility] QphvdxqAGTVTMOYFP0152-54-32 13:17:00 79.5[facility] HrirkfrHKWDVDZXAO8247-18-62 13:17:00 Test Item Value Reference Range Interpretation Comments MCH (test code = MCH) 25.7 pg 27.0-31.0 [facility] KfyrscxJTWSLPQTYR9028-61-04 13:17:0032.3[facility]annHEMATOLOGY 2019-07-16 13:17:0015.7[facility] IqkshmsYAGNWOUFHF2778-63-67 13:17:79202Cbmzhbxz MrtkbwlTMCDTVUEZJ2574-74-49 13:17:009.5[facility] OawreafGFGUBXLFZI7919-90-23 13:17:0060.7[facility] HdbondfEBRNEZLHQC3777-26-02 13:17:0029.4[facility] [place] PXZBSYKKYR0043-20-94 13:17:008.3[facility] GdvodocGJRJHKZZLY5309-03-63 13:17:001.1 [facility] TtxkgtuRRYWJVKEYR7216-77-12 13:17:000.5[facility]annHEMATOLOGY 2019-07-16 13:17:003.1[facility] HxyqrtwBFZKBDYJZD1287-16-13 13:17:001.5[facility] YufvlswPTJXZWTEBW5521-75-76 13:17:000.4[facility] XxsarksWSHYGNQAXU2472-78-07 13:17:000.1[facility]annCARDIAC FHKRDCG7546-24-42 13:17:20238Coruqzdo [place] CARDIAC TQIMZOZ0171-04-05 13:17:00<0.02[facility]annCHEM SWIEQ7286-61-51 13:17:27701Sxhqsdzp HermannCHEM MNMOY9028-45-47 13:17:0011[facility]CHE[facility] FGLJP0836-51-42 13:17:001.19[facility]annCHE[facility] PDYCZ3606-64-25 13:17:09238 [facility] EDEHH0024-45-13 13:17:004.5[facility]annCHEM PANEL 2019-07-16 13:17:48319Jjsddlag HermannCHEM NZXHQ5927-51-28 13:17:0024[facility]annCHE[facility] SKYWA7043-24-08 13:17:009.6[facility]annCHE[facility] JQHSL0798-10-13 13:17:008.2[facility]annCHEM MHUNC0452-24-29 13:17:003.9[facility]annCHEM PQRQC3880-38-28 13:17:0018[facility]annCHE[facility] HFSVA0624-39-12 13:17:0019 [facility] DZVTI5335-96-67 13:17:0082[facility]annCHEM PANEL 2019-07-16 13:17:000.5[facility]annCHEM WFJPQ6488-54-76 13:17:0015.5[facility]annCHE[facility] EICLB8556-71-30 13:17:00 Test Item Value Reference Range Interpretation Comments B/C Ratio (test code = B/C Ratio) 9 1 09-14 [facility] RYYST1424-27-15 13:17:004.3[facility]annCHEM PANEL 2019-07-16 13:17:00 Test Item Value Reference Range Interpretation Comments A/G Ratio (test code = A/G Ratio) 0.9 1 0.7-1.6 [facility] TGTYB2117-49-13 13:17:0047[facility]annCHEM PANEL 2019-07-16 13:17:67774Fljvppoe HermannCHEM ITKNU1949-45-06 13:17:001.7[facility] VsyhubxDIATCMSOET8726-76-53 13:17:005.1[facility] ZoyeedwTQAXXTVVVX3243-09-18 13:17:004.18[facility] LilkpryCHDLQFTKJB6560-34-04 13:17:0010.7[facility] XNMOEAPXMK9222-05-03 13:17:0033.2[facility] GjcxjbuRUTLRXGDXW8884-50-45 13:17:00 79.5[facility] KlieijqAQOHOBBRUF4923-22-03 13:17:00 Test Item Value Reference Range Interpretation Comments MCH (test code = MCH) 25.7 pg 27.0-31.0 [facility] EabfvorDZJBLZGKIB3378-44-54 13:17:0032.3[facility]annHEMATOLOGY 2019-07-16 13:17:0015.7[facility] FyvejgcDFNKHKQFAC2080-58-88 13:17:58381Rhrexxpx GodrmkwDRVIOVASTV2335-26-70 13:17:009.5[facility] NksvxhuFFJXHUVKIC1845-45-35 13:17:0060.7[facility] AhhqlddBQIUBTHKKG7937-14-15 13:17:0029.4[facility] [place] VAHXFYICGH4567-04-87 13:17:008.3[facility] HdeamftTTCJVCSDVR3145-75-16 13:17:001.1 [facility] BgjmmnkLURQINBQUT0204-35-64 13:17:000.5[facility]annHEMATOLOGY 2019-07-16 13:17:003.1[facility] ArblvclGCPNMJMZUF6969-40-02 13:17:001.5[facility] MaloijaVWOOSRQARL9568-42-86 13:17:000.4[facility] OcwgkhrYWSKBMQAHY5766-88-91 13:17:000.1[facility]annCARDIAC XFEHHDK3432-53-87 13:17:07630Suldahdy Ben CARDIAC KJRKOQE3844-03-58 13:17:00<0.02[facility]annCHEM UIDRX2797-88-31 13:17:05774Cryragiz HermannCHEM CCCML5933-87-04 13:17:0011[facility]annCHE[facility] SSJYD1929-11-92 13:17:001.19[facility]annCHE[facility] ZJHNT8490-38-60 13:17:63153 [facility]CHE[facility] ZCIGJ5039-99-28 13:17:004.5[facility]annCHEM PANEL 2019-07-16 13:17:30417Dtqdwjtw HermannCHEM UHSDM1437-29-91 13:17:0024[facility]annCHEM MJSOL4167-10-14 13:17:009.6[facility]annCHEM YTYXV0404-24-35 13:17:008.2[facility]annCHEM UDMWZ3280-54-77 13:17:003.9[facility]annCHEM FWGSA7064-57-31 13:17:0018[facility]annCHEM YTGZO7702-86-08 13:17:0019 [facility]annCHE[facility] VJRBX7526-93-83 13:17:0082[facility]annCHEM PANEL 2019-07-16 13:17:000.5[facility]annCHEM QPETG4755-23-97 13:17:0015.5[facility]annCHEM AXBLY1375-81-51 13:17:00 Test Item Value Reference Range Interpretation Comments B/C Ratio (test code = B/C Ratio) 9 1 6-25 [facility]CHE[facility] FYMSL5490-86-26 13:17:004.3[facility] 2019-[facility]16 13:17:00 Test Item Value Reference Range Interpretation Comments A/G Ratio (test code = A/G Ratio) 0.9 1 0.7-1.6 [facility] DEGWM4692-11-21 13:17:0047[facility]annCHEM PANEL 2019-07-16 13:17:80845Ytmtabib HermannCHEM XGLVP4075-30-01 13:17:001.7[facility] TvfppevLASKVYTMRV2319-24-02 13:17:005.1[facility] OlkzdjkHULMPZNCDX2285-29-18 13:17:004.18[facility] EacdparNJFBFOCBIV2234-25-83 13:17:0010.7[facility] RBIZEMYYSV2430-17-11 13:17:0033.2[facility] UehqikoGYNGBZMVBP2279-05-30 13:17:00 79.5[facility] KpufhbmWFLNOZOQVX9427-42-36 13:17:00 Test Item Value Reference Range Interpretation Comments MCH (test code = MCH) 25.7 pg 27.0-31.0 [facility] RmpxaxySYAVMMJPSL9149-50-18 13:17:0032.3[facility]annHEMATOLOGY 2019-07-16 13:17:0015.7[facility] SvnuxhcJNSCOHGZMS9058-43-79 13:17:47948Qrbudeok PrxwgxqWGCEXLRWEH7722-18-23 13:17:009.5[facility] AirjdpuYTHUYHZWUH1985-02-06 13:17:0060.7[facility] KvzhqfuSQIXJTUGJD2048-32-26 13:17:0029.4[facility] [place] XSVKYCYTIO2766-04-40 13:17:008.3[facility] CquwyqzANDWUHNWTD0729-53-15 13:17:001.1 [facility] TqilwzoALARIUMSBZ5953-23-35 13:17:000.5[facility]annHEMATOLOGY 2019-07-16 13:17:003.1[facility] LxcmqkpEWRYXCUVZT4964-83-12 13:17:001.5[facility] TixxmujGOUNRERJSP7626-92-77 13:17:000.4[facility] MbwpgcxPJLOMWZNWK7945-41-75 13:17:000.1[facility]annCARDIAC BEXOLJG3269-15-40 13:17:56159Ogyppovi [place] CARDIAC EXBDAPG9311-27-31 13:17:00<0.02[facility]annCHEM MMPPC4386-18-56 13:17:66236Krkcrhqb HermannCHEM JJDSZ1715-79-14 13:17:0011[facility]annCHEM OFPAZ9028-78-86 13:17:001.19[facility]annCHEM MJEQP4415-37-07 13:17:63706 [facility]CHE[facility] PUYKB4379-62-41 13:17:004.5[facility]annCHEM PANEL 2019-07-16 13:17:99000Olahuvxo HermannCHEM KJGHT8953-31-70 13:17:0024[facility]annCHEM EZXVM0983-64-08 13:17:009.6[facility]annCHEM XWKQS0047-09-79 13:17:008.2[facility]annCHEM UOSRC1689-20-27 13:17:003.9[facility]annCHEM UWOYF9791-25-00 13:17:0018[facility]annCHEM RSIEF1941-21-72 13:17:0019 [facility]annCHE[facility] LLBCX2927-83-49 13:17:0082[facility]annCHEM PANEL 2019-07-16 13:17:000.5[facility]annCHEM BEASI1915-74-51 13:17:0015.5[facility]annCHEM KOTYY0093-67-93 13:17:00 Test Item Value Reference Range Interpretation Comments B/C Ratio (test code = B/C Ratio) 9 1 6-25 [facility]CHE[facility] PKAYW5366-36-56 13:17:004.3[facility]annCHEM PANEL 2019-07-16 13:17:00 Test Item Value Reference Range Interpretation Comments A/G Ratio (test code = A/G Ratio) 0.9 1 0.7-1.6 [facility] HXJFU4876-77-05 13:17:0047[facility]annCHEM PANEL 2019-07-16 13:17:02704Oluvmzdt HermannCHEM YQFAW1762-34-09 13:17:001.7[facility] PmfkwbyAMVOOIJNRF9735-96-91 13:17:005.1[facility] TuxinkwFOELFULSAY1963-05-62 13:17:004.18[facility] GvrrqfpAELGFSFKEM4627-74-84 13:17:0010.7[facility] RUKUPTYKFR4830-16-38 13:17:0033.2[facility] LjpzvlqIKNHWBHZWZ6658-51-67 13:17:00 79.5[facility] ZshcgasUSPFKHLLMR3936-80-18 13:17:00 Test Item Value Reference Range Interpretation Comments MCH (test code = MCH) 25.7 pg 27.0-31.0 [facility] TrxrborRMRTKRFTEB6017-35-15 13:17:0032.3[facility]annHEMATOLOGY 2019-07-16 13:17:0015.7[facility] JsrftobWTTPKIEQEW5119-65-54 13:17:29158Xpynbhsi FfafngqTJGGPNBQQK2299-53-61 13:17:009.5[facility] OgijfhiSOYCYDBYCQ7717-41-74 13:17:0060.7[facility] SuxeujhIFGTXVCILP6002-95-45 13:17:0029.4[facility] LMTBPXSDVL4600-26-23 13:17:008.3[facility] GvtdxrpIHTIOTLEEU0044-15-98 13:17:001.1 [facility] FuvqddlOTNIDXVLOL0632-83-27 13:17:000.5[facility]annHEMATOLOGY 2019-07-16 13:17:003.1[facility] JtzaudlOSVHLITVMM3084-51-95 13:17:001.5[facility] VwhwhmkVJESGYPASR2771-82-45 13:17:000.4[facility] PtwiuurBGHNXYRWTZ6300-90-90 13:17:000.1[facility]annCARDIAC NULDXKV0316-99-61 13:17:89201Ostujanu [place] CARDIAC MSCCBFJ3444-27-54 13:17:00<0.02[facility]annCHEM PASQG0178-68-33 13:17:89389Mbzhtsxv HermannCHEM ZLWSP5140-79-83 13:17:0011[facility]annCHEM XWQOX2415-72-15 13:17:001.19[facility]annCHEM YJVMA2057-95-33 13:17:38348 [facility]annCHE[facility] OHMOP5375-54-79 13:17:004.5[facility]annCHEM PANEL 2019-07-16 13:17:17157Kthtxken HermannCHEM BGPMO0612-89-52 13:17:0024[facility]annCHEM GRNYB8676-06-64 13:17:009.6[facility]annCHEM DGKZE5727-57-98 13:17:008.2[facility]annCHEM VHQJE8239-52-59 13:17:003.9[facility]annCHEM UOPJY4891-74-74 13:17:0018[facility]annCHEM HTUUS8375-36-47 13:17:0019 [facility]CHE[facility] QGMII7546-76-42 13:17:0082[facility]annCHEM PANEL 2019-07-16 13:17:000.5[facility]annCHEM KQBXL5985-00-63 13:17:0015.5[facility]annCHEM YOVRB5416-35-21 13:17:00 Test Item Value Reference Range Interpretation Comments B/C Ratio (test code = B/C Ratio) 9 1 6-25 [facility]CHE[facility] WQLTB1108-43-01 13:17:004.3[facility]annCHEM PANEL 2019-07-16 13:17:00 Test Item Value Reference Range Interpretation Comments A/G Ratio (test code = A/G Ratio) 0.9 1 0.7-1.6 [facility]annCHE[facility] VFIUC0120-79-24 13:17:0047[facility]annCHEM PANEL 2019-07-16 13:17:74102Zugvctja HermannCHEM IKVCN5447-07-64 13:17:001.7[facility] XrinmtmRIHHKQLJSI1809-10-11 13:17:005.1[facility] SjaugsoZHOPCEICEV1692-75-93 13:17:004.18[facility] PavvfcgHYTNUSVWUI9990-88-24 13:17:0010.7[facility] FOLSYSEXZZ5885-80-01 13:17:0033.2[facility] OluxjilEKRPJZKTCU2532-54-35 13:17:00 79.5[facility] PsiwomeWFTOFQGAED6160-33-47 13:17:00 Test Item Value Reference Range Interpretation Comments MCH (test code = MCH) 25.7 pg 27.0-31.0 [facility] RfewnqfZNOZGYOCPO7276-99-25 13:17:0032.3[facility]annHEMATOLOGY 2019-07-16 13:17:0015.7[facility] KrerkoeUFULFBKABL9823-88-43 13:17:32798Emvppado MnmjjtrTJPRHLGWKC1900-37-78 13:17:009.5[facility] XwsephrGDFVHFMHBG2949-87-58 13:17:0060.7[facility] XoppbvnHYUFRDKXCW2098-06-52 13:17:0029.4[facility] [place] RPNJJEXYXX7111-07-08 13:17:008.3[facility] XtqousvHXSRXSYYKJ0552-11-48 13:17:001.1 [facility] ExbyxbcBORLPKGOTH2288-86-35 13:17:000.5[facility]annHEMATOLOGY 2019-07-16 13:17:003.1[facility] CclliaiEWDUOUFEVN0293-52-62 13:17:001.5[facility] InfunkxBAPQEJDTSH1580-69-99 13:17:000.4[facility] RzmfrlhNHRARHCAEP6994-79-87 13:17:000.1[facility] HermannCARDIAC OBXGRQE8047-45-30 13:17:19864Jvrqmfty [place] CARDIAC CFNTHCI3340-70-09 13:17:00<0.02[facility]annCHEM GUQCG5280-00-55 13:17:44020Ibltyfle HermannCHEM SOFIS7073-60-47 13:17:0011[facility]annCHEM XGKQU6009-66-07 13:17:001.19[facility]annCHEM VWHCW8567-34-82 13:17:42216 [facility]CHE[facility] RMIHF7973-71-85 13:17:004.5[facility]annCHEM PANEL 2019-07-16 13:17:93168Wprclmck HermannCHEM TDMMF8559-17-63 13:17:0024[facility]annCHEM IZSYH3584-31-57 13:17:009.6[facility]annCHEM CTMAI4247-47-25 13:17:008.2[facility]annCHEM FYAAK8382-35-21 13:17:003.9[facility]annCHEM THWQP5137-65-48 13:17:0018[facility]annCHEM IQHZQ8750-10-01 13:17:0019 [facility]annCHEM KSIOT8909-16-82 13:17:0082[facility]annCHEM PANEL 2019-07-16 13:17:000.5[facility]annCHEM AVAXX1159-14-20 13:17:0015.5[facility]annCHEM MCQFM4557-93-11 13:17:00 Test Item Value Reference Range Interpretation Comments B/C Ratio (test code = B/C Ratio) 9 1 6-25 [facility]annCHEM KIGII9654-89-00 13:17:004.3[facility]annCHEM PANEL 2019-07-16 13:17:00 Test Item Value Reference Range Interpretation Comments A/G Ratio (test code = A/G Ratio) 0.9 1 0.7-1.6 [facility]annCHE[facility] RJINU4497-43-50 13:17:0047[facility]annCHEM PANEL 2019-07-16 13:17:03262Yaoqmolh HermannCHEM ZFQHG5574-41-70 13:17:001.7[facility] EzhigmrYJNZDBHYWY2503-57-81 13:17:005.1[facility] MitblfhAEFXLQUETJ4908-62-95 13:17:004.18[facility] UarwiesPPQXEANPLX1075-37-96 13:17:0010.7[facility] [place] BZUNFACHLK6270-00-96 13:17:0033.2[facility] EsulbgiGWQAXDCMXY9272-06-35 13:17:00 79.5[facility] SzxlrutIFWOHWKCDA7273-90-15 13:17:00 Test Item Value Reference Range Interpretation Comments MCH (test code = MCH) 25.7 pg 27.0-31.0 [facility] AmutstmBRYRIMFADX9584-96-53 13:17:0032.3[facility]annHEMATOLOGY 2019-07-16 13:17:0015.7[facility] XgrospcPUETPHCFQV1489-53-15 13:17:44843Qdzglwar XfecdwmAZGFHNFRIQ1236-71-75 13:17:009.5[facility] ZfabodbFVPDFKPKDZ6862-69-43 13:17:0060.7[facility] QzxdgsrAXKWZSKXUB0014-09-68 13:17:0029.4[facility] [place] KGTFZLDFBU7752-08-67 13:17:008.3[facility] BixmkkqTVCJGENITG5832-61-16 13:17:001.1 [facility] DmniyerCYRVOLTFYD3837-04-40 13:17:000.5[facility]annHEMATOLOGY 2019-07-16 13:17:003.1[facility] CttjhcdQOHEJJYHIO8639-34-69 13:17:001.5[facility] DjbarloWNONJKTWEC7145-27-64 13:17:000.4[facility] TxgvvnfFYAFHRPNYG0158-93-64 13:17:000.1[facility] HermannCARDIAC OGIHMQZ3099-44-13 13:17:03472Zgkjoxbg Ben CARDIAC UFUPDLS8730-26-15 13:17:00<0.02[facility]annCHEM YYDHO6423-40-14 13:17:76039Dcgpjtgz HermannCHEM EAAII9046-78-30 13:17:0011[facility]annCHEM MIOOU0337-53-82 13:17:001.19[facility]annCHEM JAYPB6957-36-35 13:17:39798 [facility]annCHEM PLSWK4375-96-40 13:17:004.5[facility]annCHEM PANEL 2019-07-16 13:17:11873Trzieldn HermannCHEM ZOIMW9186-77-13 13:17:0024[facility]annCHEM OHQJY2245-98-02 13:17:009.6[facility]annCHEM RSJFM9530-25-43 13:17:008.2[facility]annCHEM RGOXH4235-80-37 13:17:003.9[facility] HermannCHEM HALOK4701-58-40 13:17:0018[facility]annCHEM PWCOT4599-88-96 13:17:0019 [facility]annCHE[facility] TNYFR1694-23-16 13:17:0082[facility]annCHEM PANEL 2019-07-16 13:17:000.5[facility]annCHEM DZNHC0217-61-12 13:17:0015.5[facility]annCHEM EQOIB1258-50-50 13:17:00 Test Item Value Reference Range Interpretation Comments B/C Ratio (test code = B/C Ratio) 9 1 -25 [facility]annCHEM NFBAD2758-52-11 13:17:004.3[facility]annCHEM PANEL 2019-07-16 13:17:00 Test Item Value Reference Range Interpretation Comments A/G Ratio (test code = A/G Ratio) 0.9 1 0.7-1.6 [facility]annCHEM IHXRX5381-58-00 13:17:0047[facility]annCHEM PANEL 2019-07-16 13:17:09642Brxniljn HermannCHEM UKPTA7568-95-32 13:17:001.7[facility] HzchvsvYGYCIREMWV8838-29-67 13:17:005.1[facility] HuwkfkmAIWMNTRUXT8025-97-84 13:17:004.18[facility] NvhopjnENPZJURPOA4546-03-81 13:17:0010.7[facility] XWFPHTRZQU2060-61-47 13:17:0033.2[facility] SoiqyznCODOTRZNUZ4012-76-39 13:17:00 79.5[facility] KanapepYUGAUUULXJ2905-94-93 13:17:00 Test Item Value Reference Range Interpretation Comments MCH (test code = MCH) 25.7 pg 27.0-31.0 [facility] VrccrenLWOCJIXDTE4615-94-42 13:17:0032.3[facility] HermannHEMATOLOGY 2019-07-16 13:17:0015.7[facility] CqblfjgBDIOYXPJFS1435-66-05 13:17:33901Yyhdonbp TbfuvvrMFOQORILCK1598-36-92 13:17:009.5[facility] UtdgbfpCCHRDQVDUU3931-08-84 13:17:0060.7[facility] JzxvsvePSVLOZCKNT9989-26-32 13:17:0029.4[facility] [place] JWYUQVEOGQ2832-89-46 13:17:008.3[facility] GvjflupLNBWKOACQN5630-46-34 13:17:001.1 [facility] TyzibuxPUSAITDXJL1040-64-44 13:17:000.5[facility]annHEMATOLOGY 2019-07-16 13:17:003.1[facility] CmwsforQDPKNIPOJW3465-96-21 13:17:001.5[facility] BqpjwihHAREHYMFKS5043-35-78 13:17:000.4[facility] OfvvtvsHOIWXRELTU5833-74-08 13:17:000.1[facility] HermannCARDIAC LEJPTZG3175-51-07 13:17:93534Zpslfdrv Ben CARDIAC VQKSGLR4692-59-20 13:17:00<0.02[facility]annCHEM XDSJV3406-27-49 13:17:16489Vtxrlvvs HermannCHEM EDENG6590-60-09 13:17:0011[facility]annCHEM KATCK7465-44-10 13:17:001.19[facility]annCHEM RYDSS2609-50-17 13:17:94775 [facility]annCHE[facility] DVKUU7765-84-50 13:17:004.5[facility]annCHEM PANEL 2019-07-16 13:17:96237Umwvrcft HermannCHEM ZAQBH1933-64-50 13:17:0024[facility]annCHEM QIIGT7427-92-58 13:17:009.6[facility]annCHEM BQZPY2867-02-10 13:17:008.2[facility]annCHEM MUHFG1041-38-42 13:17:003.9[facility]annCHEM QHQLQ4767-49-35 13:17:0018[facility]annCHEM MCIHS0310-22-41 13:17:0019 [facility]annCHEM NVBJI9224-67-48 13:17:0082[facility]annCHEM PANEL 2019-07-16 13:17:000.5[facility]annCHEM DESOE9688-16-16 13:17:0015.5[facility]annCHEM OKLXY2345-31-06 13:17:00 Test Item Value Reference Range Interpretation Comments B/C Ratio (test code = B/C Ratio) 9 1 09-14 [facility]annCHEM AUYLD6445-91-40 13:17:004.3[facility]annCHEM PANEL 2019-07-16 13:17:00 Test Item Value Reference Range Interpretation Comments A/G Ratio (test code = A/G Ratio) 0.9 1 0.7-1.6 [facility]annCHE[facility] ZRUCP3118-43-46 13:17:0047[facility]annCHEM PANEL 2019-07-16 13:17:81972Mfbkmmzc HermannCHEM EIXHQ0984-40-54 13:17:001.7[facility] BaxypkeAXABHURCWJ8014-88-66 13:17:005.1[facility] LlbiwesGONOQENQLH4936-69-85 13:17:004.18[facility] NxfnvcfIWEPXWLLGT7891-56-27 13:17:0010.7[facility] WIPHJIVUCL0564-40-58 13:17:0033.2[facility] QchomahFERSNMWXOJ7258-34-74 13:17:00 79.5[facility] FtlhwosEKJCZYMNGC5582-42-84 13:17:00 Test Item Value Reference Range Interpretation Comments MCH (test code = MCH) 25.7 pg 27.0-31.0 [facility] TdzylwhSAJZEFZRXH5513-05-43 13:17:0032.3[facility]annHEMATOLOGY 2019-07-16 13:17:0015.7[facility] TroexhiPAOENWQSES6591-83-11 13:17:30052Jaklyira PqhizayUKGFCDCYHG1976-83-22 13:17:009.5[facility] KhljngtQUYBWWXXXH6219-65-44 13:17:0060.7[facility] EkqhzhgMBNLKHITEW7335-59-38 13:17:0029.4[facility] BCYGNZBNQR5618-43-34 13:17:008.3[facility] JqnjuzoOYAJLNVEFQ1229-05-28 13:17:001.1 [facility] CsoxejuKNQCXQMJJC5232-19-84 13:17:000.5[facility]annHEMATOLOGY 2019-07-16 13:17:003.1[facility] JycuthqBVBVQFFXYJ5151-45-28 13:17:001.5[facility] MlcmpmmAITTHSGCOK4956-50-14 13:17:000.4[facility] RdnflgmYFCSZUFGKK5043-24-58 13:17:000.1[facility] HermannCARDIAC OLTNVMZ1860-31-16 13:17:70613Uxhsaeda [place] CARDIAC COFZFJK2690-35-32 13:17:00<0.02[facility]annCHEM IQPZK9008-84-92 13:17:25392Jhlcedpr HermannCHEM HVTSH0131-41-02 13:17:0011[facility]annCHEM OSKUW8110-54-27 13:17:001.19[facility]annCHEM PWBBW5090-31-43 13:17:25633 [facility]annCHEM PARSW6240-15-57 13:17:004.5[facility]annCHEM PANEL 2019-07-16 13:17:52125Gwgihvaj HermannCHEM JWQBE4746-33-08 13:17:0024[facility]annCHEM LSGLM5147-77-00 13:17:009.6[facility]annCHEM SWKGG7673-88-80 13:17:008.2[facility]annCHEM OPVVZ5935-03-31 13:17:003.9[facility]annCHEM OXVUO6320-07-00 13:17:0018[facility]annCHEM YNHQO6632-04-94 13:17:0019 [facility]annCHEM XDWCJ4246-54-76 13:17:0082[facility]annCHEM PANEL 2019-07-16 13:17:000.5[facility]annCHEM FSPQL7952-82-05 13:17:0015.5[facility]annCHEM YSMRW8441-49-29 13:17:00 Test Item Value Reference Range Interpretation Comments B/C Ratio (test code = B/C Ratio) 9 1 09-14 [facility]annCHEM VPBID8000-08-10 13:17:004.3[facility]annCHEM PANEL 2019-07-16 13:17:00 Test Item Value Reference Range Interpretation Comments A/G Ratio (test code = A/G Ratio) 0.9 1 0.7-1.6 [facility]annCHEM DZVAD5358-32-62 13:17:0047[facility]annCHEM PANEL 2019-07-16 13:17:48713Wclqgilg HermannCHEM AOTPI0417-99-26 13:17:001.7[facility] JdssuelIEOEIFRPHT1726-03-96 13:17:005.1[facility] ZyqrzyrZZMODEJJHV5543-42-85 13:17:004.18[facility] DmiyrqyIIDACFMXVV3775-69-74 13:17:0010.7[facility] ZCJFZOIEOY7871-03-65 13:17:0033.2[facility] HmoqwbqFWTOAAVHWT1558-03-42 13:17:00 79.5[facility] BngciujOUHVOEEYTH1269-27-73 13:17:00 Test Item Value Reference Range Interpretation Comments MCH (test code = MCH) 25.7 pg 27.0-31.0 [facility] WygjkqaMCQPQLLJNP9949-48-50 13:17:0032.3[facility] HermannHEMATOLOGY 2019-07-16 13:17:0015.7[facility] TwjylixOTRIKBTSCT7902-51-06 13:17:33367Wapibyod WchizxqOKWANNINHI5145-90-84 13:17:009.5[facility] JvyuijqJFBQZMFCEU9146-78-49 13:17:0060.7[facility] JgjrtwsLYAUPHBELQ0585-76-84 13:17:0029.4[facility] [place] RIFBYGMKEE8392-54-97 13:17:008.3[facility] EfvcajbMUVIPKTIGQ4267-08-21 13:17:001.1 [facility] BulqsbjPDFUSBNLLQ0332-67-33 13:17:000.5[facility] HermannHEMATOLOGY 2019-07-16 13:17:003.1[facility] HizzttuLAEUYUOODQ5628-51-70 13:17:001.5[facility] ArbbfwzBLECWGTQJO0203-11-67 13:17:000.4[facility] CvavceaEUSPCHCGJO6047-30-39 13:17:000.1[facility]annURINE AND RJXJK2260-26-86 00:33:00Yellow *NA*(07/12/19 7:33 PM)[facility] LOVAV7812-85-90 00:33:00Slight *ABN*(07/12/19 7:33 PM)[facility] MWLWP1088-05-31 00:33:00 Test Item Value Reference Range Interpretation Comments UA Spec Grav (test code = UA Spec 1.011 1 Grav) [facility] CRQXD4380-22-22 00:33:00 Test Item Value Reference Range Interpretation Comments UA pH (test code = UA pH) 7.0 1 5.0-8.0 [facility] NNPHE0220-95-97 00:33:00Negative *NA*(07/12/19 7:33 PM) [facility] AQGCI6229-01-66 00:33:00Small *ABN*(07/12/19 7:33 PM) [facility] GKNQL3835-21-31 00:33:00Negative (07/12/19 7:33 PM) [facility] TMFDQ5461-44-18 00:33:00Negative (07/12/19 7:33 PM) [facility] YIHSA6384-28-76 00:33:002[facility] ITYQG1079-39-01 00:33:003[facility] ABFBD7482-23-10 00:33:00 Yellow *NA*(07/12/19 7:33 PM)[facility] CEPEM2080-58-44 00:33:00 Slight *ABN*(07/12/19 7:33 PM)[facility] YOBYT3123-80-34 00:33:00 Test Item Value Reference Range Interpretation Comments UA Spec Grav (test code = UA Spec 1.011 1 Grav) [facility] CHYYF6755-07-25 00:33:00 Test Item Value Reference Range Interpretation Comments UA pH (test code = UA pH) 7.0 1 5.0-8.0 [facility] MTSHK6327-99-46 00:33:00Negative *NA*(07/12/19 7:33 PM) [facility] UUFCG8166-12-09 00:33:00Small *ABN*(07/12/19 7:33 PM) [facility] HKPWD8370-64-38 00:33:00Negative (07/12/19 7:33 PM) [facility] HVYRN8860-37-71 00:33:00Negative (07/12/19 7:33 PM) [facility] GZXPD2728-98-83 00:33:002[facility] MHTMA5691-07-99 00:33:003[facility] VOVWL5082-66-27 00:33:00 Yellow *NA*(07/12/19 7:33 PM)[facility] VSTYZ1635-68-74 00:33:00 Slight *ABN*(07/12/19 7:33 PM)[facility] ZVNMC8439-97-32 00:33:00 Test Item Value Reference Range Interpretation Comments UA Spec Grav (test code = UA Spec 1.011 1 Grav) [facility] DUROF0226-93-88 00:33:00 Test Item Value Reference Range Interpretation Comments UA pH (test code = UA pH) 7.0 1 5.0-8.0 [facility] ZXTAI6940-66-58 00:33:00Negative *NA*(07/12/19 7:33 PM) [facility] ZMFJE2323-97-98 00:33:00Small *ABN*(07/12/19 7:33 PM) [facility] YOOOW7821-04-49 00:33:00Negative (07/12/19 7:33 PM) [facility] IPMMW5977-81-11 00:33:00Negative (07/12/19 7:33 PM) [facility] UXDXO0932-32-03 00:33:002[facility] XZLWB5976-15-74 00:33:003[facility] XMLYF6794-73-23 00:33:00 Yellow *NA*(07/12/19 7:33 PM)[facility] TXBUO8650-73-11 00:33:00 Slight *ABN*(07/12/19 7:33 PM)[facility] [id number] 00:33:00 Test Item Value Reference Range Interpretation Comments UA Spec Grav (test code = UA Spec 1.011 1 Grav) [facility] [id number] 00:33:00 Test Item Value Reference Range Interpretation Comments UA pH (test code = UA pH) 7.0 1 5.0-8.0 [facility] [id number] 00:33:00Negative *NA*(07/12/19 7:33 PM) [facility] [id number] 00:33:00Small *ABN*(07/12/19 7:33 PM) [facility] [id number] 00:33:00Negative (07/12/19 7:33 PM) [facility] [id number] 00:33:00Negative (07/12/19 7:33 PM) [facility] [id number] 00:33:002[facility] [id number] 00:33:003[facility] [id number] 00:33:00 Yellow *NA*(07/12/19 7:33 PM)[facility] [id number] 00:33:00 Slight *ABN*(07/12/19 7:33 PM)[facility] [id number] 00:33:00 Test Item Value Reference Range Interpretation Comments UA Spec Grav (test code = UA Spec 1.011 1 Grav) [facility] [id number] 00:33:00 Test Item Value Reference Range Interpretation Comments UA pH (test code = UA pH) 7.0 1 5.0-8.0 [facility] [id number] 00:33:00Negative *NA*(07/12/19 7:33 PM) [facility] [id number] 00:33:00Small *ABN*(07/12/19 7:33 PM) [facility] [id number] 00:33:00Negative (07/12/19 7:33 PM) [facility] [id number] 00:33:00Negative (07/12/19 7:33 PM) [facility] [id number] 00:33:002[facility] [id number] 00:33:003[facility] [id number] 00:33:00 Yellow *NA*(07/12/19 7:33 PM)[facility] [id number] 00:33:00 Slight *ABN*(07/12/19 7:33 PM)[facility] [id number] 00:33:00 Test Item Value Reference Range Interpretation Comments UA Spec Grav (test code = UA Spec 1.011 1 Grav) [facility] [id number] 00:33:00 Test Item Value Reference Range Interpretation Comments UA pH (test code = UA pH) 7.0 1 5.0-8.0 [facility] [id number] 00:33:00Negative *NA*(07/12/19 7:33 PM) [facility] [id number] 00:33:00Small *ABN*(07/12/19 7:33 PM) [facility] [id number] 00:33:00Negative (07/12/19 7:33 PM) [facility] [id number] 00:33:00Negative (07/12/19 7:33 PM) [facility] [id number] 00:33:002[facility] [id number] 00:33:003[facility] [id number] 00:33:00 Yellow *NA*(07/12/19 7:33 PM)[facility] [id number] 00:33:00 Slight *ABN*(07/12/19 7:33 PM)[facility] [id number] 00:33:00 Test Item Value Reference Range Interpretation Comments UA Spec Grav (test code = UA Spec 1.011 1 Grav) [facility] [id number] 00:33:00 Test Item Value Reference Range Interpretation Comments UA pH (test code = UA pH) 7.0 1 5.0-8.0 [facility] [id number] 00:33:00Negative *NA*(07/12/19 7:33 PM) [facility] [id number] 00:33:00Small *ABN*(07/12/19 7:33 PM) [facility] [id number] 00:33:00Negative (07/12/19 7:33 PM) [facility] [id number] 00:33:00Negative (07/12/19 7:33 PM) [facility] [id number] 00:33:002[facility] [id number] 00:33:003[facility] [id number] 00:33:00 Yellow *NA*(07/12/19 7:33 PM)[facility] [id number] 00:33:00 Slight *ABN*(07/12/19 7:33 PM)[facility] [id number] 00:33:00 Test Item Value Reference Range Interpretation Comments UA Spec Grav (test code = UA Spec 1.011 1 Grav) [facility] [id number] 00:33:00 Test Item Value Reference Range Interpretation Comments UA pH (test code = UA pH) 7.0 1 5.0-8.0 [facility] [id number] 00:33:00Negative *NA*(07/12/19 7:33 PM) [facility] [id number] 00:33:00Small *ABN*(07/12/19 7:33 PM) [facility] [id number] 00:33:00Negative (07/12/19 7:33 PM) [facility] [id number] 00:33:00Negative (07/12/19 7:33 PM) [facility] [id number] 00:33:002[facility] [id number] 00:33:003[facility] [id number] 00:33:00 Yellow *NA*(07/12/19 7:33 PM)[facility] [id number] 00:33:00 Slight *ABN*(07/12/19 7:33 PM)[facility] [id number] 00:33:00 Test Item Value Reference Range Interpretation Comments UA Spec Grav (test code = UA Spec 1.011 1 Grav) [facility] [id number] 00:33:00 Test Item Value Reference Range Interpretation Comments UA pH (test code = UA pH) 7.0 1 5.0-8.0 [facility] [id number] 00:33:00Negative *NA*(07/12/19 7:33 PM) [facility] [id number] 00:33:00Small *ABN*(07/12/19 7:33 PM) [facility] [id number] 00:33:00Negative (07/12/19 7:33 PM) [facility] [id number] 00:33:00Negative (07/12/19 7:33 PM) [facility] [id number] 00:33:002[facility] [id number] 00:33:003[facility] [id number] 00:33:00 Yellow *NA*(07/12/19 7:33 PM)[facility] [id number] 00:33:00 Slight *ABN*(07/12/19 7:33 PM)[facility] [id number] 00:33:00 Test Item Value Reference Range Interpretation Comments UA Spec Grav (test code = UA Spec 1.011 1 Grav) [facility] [id number] 00:33:00 Test Item Value Reference Range Interpretation Comments UA pH (test code = UA pH) 7.0 1 5.0-8.0 [facility] [id number] 00:33:00Negative *NA*(07/12/19 7:33 PM) [facility] [id number] 00:33:00Small *ABN*(07/12/19 7:33 PM) [facility] [id number] 00:33:00Negative (07/12/19 7:33 PM) [facility] [facility] AND LWIFP2957-93-69 00:33:00Negative (07/12/19 7:33 PM) [facility] PBMVD4597-97-52 00:33:002[facility] ZWZSK9231-86-52 00:33:003[facility]annCARDIAC BAOTVJD7479-49-14 23:42:00 <0.02[facility]annCHEM MXFDB0937-92-32 23:42:0085[facility]annCHE[facility] KTJSO3814-01-40 23:42:0014[facility]annCHE[facility] DYGVE3631-18-44 23:42:001.37 [facility] IBIPH1797-14-08 23:42:89025Ulerlstd HermannCHEM PANEL 2019-07-12 23:42:003.5[facility]annCHEM GAWOF6369-17-16 23:42:96733Oozkxzpi [facility]annCHE[facility] JDNBV0819-69-56 23:42:0023[facility]annCHE[facility] HJAEK2380-06-49 23:42:009.2[facility]annCHEM QIYYE7452-85-46 23:42:008.4[facility]annCHEM SEKUC8549-39-50 23:42:004.0[facility]annCHEM HPRNA9098-08-40 23:42:0018 [facility]annCHE[facility] MCUNF5351-21-81 23:42:0011[facility]annCHEM PANEL 2019-07-12 23:42:0086[facility]annCHEM XZLSZ0345-50-73 23:42:000.4[facility]annCHE[facility] EAJKM9749-56-68 23:42:0014.5[facility]annCHEM RKILZ5232-17-62 23:42:00 Test Item Value Reference Range Interpretation Comments B/C Ratio (test code = B/C Ratio) 10 1 6-25 [facility]CHE[facility] HCDYZ8965-52-43 23:42:004.4[facility]annCHEM PANEL 2019-07-12 23:42:00 Test Item Value Reference Range Interpretation Comments A/G Ratio (test code = A/G Ratio) 0.9 1 0.7-1.6 [facility]CHE[facility] ALAAT3514-18-61 23:42:0040[facility]annCHEM PANEL 2019-07-12 23:42:45550Hvwoklak XzgicnzRAEIDDKLFS7870-02-88 23:42:007.9[facility] EyularxEJGTVPKECW9601-98-95 23:42:004.43[facility] SmcxwqzLSDEUXYVTK0569-25-27 23:42:0011.3[facility] GfufcpiVNILHNSLIX7117-69-49 23:42:0034.8[facility] MXVOHGLVOK7047-72-46 23:42:0078.5[facility] NijlofjPWHGOMTRPE7269-51-32 23:42:00 Test Item Value Reference Range Interpretation Comments MCH (test code = MCH) 25.5 pg 27.0-31.0 [facility] DpuniklKNYYPDYGOI1246-16-82 23:42:0032.5[facility]annHEMATOLOGY 2019-07-12 23:42:0015.6[facility] XqlzyseHNGOXBKAGW5829-74-45 23:42:97600Gkgmgpru OywrdjiWMRORFEIFO0615-66-19 23:42:009.9[facility] PzxaxheCTJYQTZDID0939-68-45 23:42:0052.2[facility] JpgjediJLDNEXLARQ9271-63-62 23:42:0034.4[facility] SDWGOOCEGG5769-08-42 23:42:0010.6[facility] EyosobrUJAONCTBPR3299-97-52 23:42:00 1.0[facility] MwccuczMHOQZNTEHB3603-64-60 23:42:001.8[facility]annHEMATOLOGY 2019-07-12 23:42:004.1[facility] JxclgltGEAMSVGWAI1191-35-44 23:42:002.7[facility] ModyplpYANKJOWGBX7543-05-53 23:42:000.8[facility] JkwyjmtZKEYVZXUTM3210-77-55 23:42:000.1[facility] WencubbMJKGBBXMEB6797-25-71 23:42:000.1[facility] PXCDBOLMCC8668-13-81 23:42:001+ *ABN*(07/12/19 6:42 PM)[facility]annCARDIAC QMOIONK7503-43-17 23:42:00<0.02[facility]annCHEM OEEIU1961-13-89 23:42:00 85[facility]annCHEM GWSOD6680-90-93 23:42:0014[facility]annCHEM PANEL 2019-07-12 23:42:001.37[facility]annCHEM YVVFW0053-22-66 23:42:00347Wbhdpvho [facility]annCHEM UXIMA1639-62-83 23:42:003.5[facility]annCHEM QIKBX1348-28-23 23:42:17874Rzqsytru [facility]annCHEM BTIYB8681-28-17 23:42:0023[facility]annCHE[facility] KYRTN9091-99-02 23:42:009.2[facility]annCHE[facility] CGRMD0667-96-90 23:42:008.4 [facility]annCHE[facility] ALFOD3028-39-96 23:42:004.0[facility]annCHEM PANEL 2019-07-12 23:42:0018[facility]annCHEM UGOQA2975-34-18 23:42:0011[facility]annCHEM UZFDK0412-99-23 23:42:0086[facility]annCHEM DRQPZ9239-24-62 23:42:000.4[facility]annCHEM PDCWY6580-56-35 23:42:0014.5[facility]annCHEM HSRBM4916-05-88 23:42:00 Test Item Value Reference Range Interpretation Comments B/C Ratio (test code = B/C Ratio) 10 1 6-25 [facility]CHE[facility] GZIAS8715-97-90 23:42:004.4[facility]annCHEM PANEL 2019-07-12 23:42:00 Test Item Value Reference Range Interpretation Comments A/G Ratio (test code = A/G Ratio) 0.9 1 0.7-1.6 [facility]annCHE[facility] BGRKU5507-13-91 23:42:0040[facility]annCHEM PANEL 2019-07-12 23:42:91553Lcetovtu HmmdkxtPHLZOTRUOA2862-61-05 23:42:007.9[facility] GzqvmgxURWFTMTKVT0415-17-81 23:42:004.43[facility] XviavenYDBTTJCDKY0335-09-97 23:42:0011.3[facility] DaoecetUFEDGXPRYU3866-32-53 23:42:0034.8[facility] GUAKQIAKBF3636-27-52 23:42:0078.5[facility] HrqlelrQIZXICGQZK5068-33-18 23:42:00 Test Item Value Reference Range Interpretation Comments MCH (test code = MCH) 25.5 pg 27.0-31.0 [facility] PvukbeeGYCHIRXCNN2461-22-90 23:42:0032.5[facility]annHEMATOLOGY 2019-07-12 23:42:0015.6[facility] JluzjuaDVYKNJMHJP9891-86-93 23:42:60721Mvzjbvxq CtrsddlGYLBEZZGXA1781-96-70 23:42:009.9[facility] CrbdchsNPAQZAIPJF2690-27-00 23:42:0052.2[facility] QposwuqYEOXTISNNL2784-00-48 23:42:0034.4[facility] FTJTASNITW4089-95-39 23:42:0010.6[facility] PwghrneRJELSFXBSE7734-21-93 23:42:00 1.0[facility] HbjwtkaBDPLFZRQWY3586-23-06 23:42:001.8[facility]annHEMATOLOGY 2019-07-12 23:42:004.1[facility] KldcohsDLGKEXTBNS9163-27-10 23:42:002.7[facility] ClajadwPCYVZOWYFO8265-53-29 23:42:000.8[facility] BcoyzzgZLPNVTJWYX4779-37-64 23:42:000.1[facility] SjhsyciQWSMFANMMY3291-68-04 23:42:000.1[facility] LBXKSWJRMN7778-76-84 23:42:001+ *ABN*(07/12/19 6:42 PM)[facility]annCARDIAC GMCJPJF9035-88-77 23:42:00<0.02[facility]annCHEM IXNJT1275-94-89 23:42:00 85[facility]annCHEM NNXXW7914-35-83 23:42:0014[facility]annCHEM PANEL 2019-07-12 23:42:001.37[facility]annCHEM MISNP2317-02-64 23:42:75010Laxepngh HermannCHEM BJJHP5136-41-64 23:42:003.5[facility]annCHEM FQGYQ3085-20-34 23:42:56502Hcmrmqye [facility]annCHEM GCKWE1567-13-61 23:42:0023[facility]annCHE[facility] NQWFU2653-16-94 23:42:009.2[facility]annCHEM BIAZJ8511-16-64 23:42:008.4 [facility]annCHE[facility] FVISZ6151-88-46 23:42:004.0[facility]annCHEM PANEL 2019-07-12 23:42:0018[facility]annCHEM HFEPC0737-10-36 23:42:0011[facility]annCHEM TDOVJ8815-38-67 23:42:0086[facility]annCHEM RFZVO2899-49-81 23:42:000.4[facility]annCHEM FLEKI1137-66-59 23:42:0014.5[facility]annCHEM KOCWV0225-40-65 23:42:00 Test Item Value Reference Range Interpretation Comments B/C Ratio (test code = B/C Ratio) 10 1 6-25 [facility]annCHEM KYWLG8772-31-15 23:42:004.4[facility]annCHEM PANEL 2019-07-12 23:42:00 Test Item Value Reference Range Interpretation Comments A/G Ratio (test code = A/G Ratio) 0.9 1 0.7-1.6 [facility]annCHE[facility] XBALU2075-75-17 23:42:0040[facility]annCHEM PANEL 2019-07-12 23:42:06183Rlebqedd TealwvrJKKDTPBFWN6062-69-06 23:42:007.9[facility] WlbruwzFEJTECCYGC0118-35-15 23:42:004.43[facility] TldjhtnLQRBMTYASO6278-94-69 23:42:0011.3[facility] WfxloiwJYPBSMPOET5055-57-22 23:42:0034.8[facility] ZJZGFABIQW5364-35-14 23:42:0078.5[facility] AjynybgWGMPVMWKCU5712-44-23 23:42:00 Test Item Value Reference Range Interpretation Comments MCH (test code = MCH) 25.5 pg 27.0-31.0 [facility] XkljmcbWPNCCCRPYA6207-51-56 23:42:0032.5[facility] HermannHEMATOLOGY 2019-07-12 23:42:0015.6[facility] CwskzzuMHLOGGHEPH8599-76-81 23:42:16387Euglguzd HyrogqsFRKZLFNLLB7298-15-56 23:42:009.9[facility] EupvktnNARZHQENEB4963-15-37 23:42:0052.2[facility] DsndgsoVKSUQYZQIF0055-26-35 23:42:0034.4[facility] RWGVUXKIAK8226-03-22 23:42:0010.6[facility] JojibywEHOKGTAZUW5260-42-81 23:42:00 1.0[facility] KixfazoUTJYIMRMDA6473-76-60 23:42:001.8[facility]annHEMATOLOGY 2019-07-12 23:42:004.1[facility] LdyxdgjWLOOOZWGLP4085-99-01 23:42:002.7[facility] UgjeofnYORNQZWGUK4963-10-31 23:42:000.8[facility] ZwtqsvyAPUPJAZCMZ2696-95-64 23:42:000.1[facility] TichclgIZCCJUIFJZ5814-06-36 23:42:000.1[facility] MLKUDTUGDW7355-46-58 23:42:001+ *ABN*(07/12/19 6:42 PM)[facility]annCARDIAC HYGHUHH1368-96-27 23:42:00<0.02[facility]annCHEM AHWUQ2455-46-78 23:42:00 85[facility]annCHEM ZOPFL5014-45-38 23:42:0014[facility]annCHEM PANEL 2019-07-12 23:42:001.37[facility]annCHEM YFAJO3071-82-75 23:42:96329Bfcmxbqu [facility]annCHEM VJOIT9408-70-32 23:42:003.5[facility]annCHEM DGNRT3672-81-85 23:42:95556Etfjppam [facility]annCHEM XMHFZ2448-62-52 23:42:0023[facility]annCHEM QQIWP3886-46-69 23:42:009.2[facility]annCHEM TPUPO5072-22-91 23:42:008.4 [facility]annCHEM LZVWC5032-10-34 23:42:004.0[facility]annCHEM PANEL 2019-07-12 23:42:0018[facility]annCHEM SXMTK8244-99-62 23:42:0011[facility]annCHEM SSFIR0348-46-48 23:42:0086[facility]annCHEM QBUGR0387-62-99 23:42:000.4[facility]annCHEM UKQCR8307-37-72 23:42:0014.5[facility]annCHEM LUWUI4396-59-41 23:42:00 Test Item Value Reference Range Interpretation Comments B/C Ratio (test code = B/C Ratio) 10 1 6-25 [facility]annCHEM JQOLQ8397-29-58 23:42:004.4[facility]annCHEM PANEL 2019-07-12 23:42:00 Test Item Value Reference Range Interpretation Comments A/G Ratio (test code = A/G Ratio) 0.9 1 0.7-1.6 [facility]annCHEM BURXH5165-89-22 23:42:0040[facility]annCHEM PANEL 2019-07-12 23:42:16625Ymmpumbb YhlfjviGUMFQBLLKW7649-43-87 23:42:007.9[facility] CkwlnnaBSEAYPZYMP0449-02-43 23:42:004.43[facility] IqylvahBVXLSBQALA9484-61-59 23:42:0011.3[facility] KdgkjtaRJITLYZJAU1874-77-39 23:42:0034.8[facility] PIMDMBHCCN1483-31-72 23:42:0078.5[facility] LaspoxaHPDOJFKVNZ2964-45-93 23:42:00 Test Item Value Reference Range Interpretation Comments MCH (test code = MCH) 25.5 pg 27.0-31.0 [facility] PgrmzpnDHWLFOZMPR2342-92-93 23:42:0032.5[facility]annHEMATOLOGY 2019-07-12 23:42:0015.6[facility] SfpugyoTNUNLUVOHZ1963-04-65 23:42:98942Gnhhgyny SoeewzgUJJCRVQVEC3500-63-55 23:42:009.9[facility] XdgzxezDQVUXQBMET6393-66-79 23:42:0052.2[facility] ZvuwoxiGZTUNKDHYF2675-32-95 23:42:0034.4[facility] JPQCJMFAEP0950-63-79 23:42:0010.6[facility] WjpofleQPASVXYPXF3473-40-05 23:42:00 1.0[facility] OiilvehLZYKRFNJWF5171-20-81 23:42:001.8[facility] HermannHEMATOLOGY 2019-07-12 23:42:004.1[facility] VsnfxqeDZSQFONDNQ7382-14-33 23:42:002.7[facility] JjreqrmPTRMGLOKEA5226-96-61 23:42:000.8[facility] MdvfbqlJCDPYOIPZW4961-12-35 23:42:000.1[facility] HbcyadhPVDXLZBWKV8829-92-87 23:42:000.1[facility] WUQKEABXPT6083-21-15 23:42:001+ *ABN*(07/12/19 6:42 PM)[facility]annCARDIAC SOLVUGH6258-57-72 23:42:00<0.02[facility]annCHEM XPIMI6959-75-21 23:42:00 85[facility]annCHEM DWTTF1414-95-48 23:42:0014[facility]annCHEM PANEL 2019-07-12 23:42:001.37[facility]annCHEM XYERH4654-53-66 23:42:99327Oqcdpnru HermannCHEM MUVPF3848-08-96 23:42:003.5[facility]annCHEM KDTJF8912-13-65 23:42:98155Tilygzta HermannCHEM WPKFD2461-33-73 23:42:0023[facility]annCHEM ZELXH4627-04-17 23:42:009.2[facility]annCHEM IHHZR7637-64-53 23:42:008.4 [facility]annCHEM UMANG1472-57-86 23:42:004.0[facility]annCHEM PANEL 2019-07-12 23:42:0018[facility]annCHEM DHEWZ2878-12-38 23:42:0011[facility]annCHEM NRMNM4545-48-93 23:42:0086[facility]annCHEM ETRIN9152-50-48 23:42:000.4[facility]annCHEM MSDMO3960-56-63 23:42:0014.5[facility]annCHEM FIKAN4378-16-09 23:42:00 Test Item Value Reference Range Interpretation Comments B/C Ratio (test code = B/C Ratio) 10 1 6-25 [facility]annCHEM PNLRK1157-17-66 23:42:004.4[facility]annCHEM PANEL 2019-07-12 23:42:00 Test Item Value Reference Range Interpretation Comments A/G Ratio (test code = A/G Ratio) 0.9 1 0.7-1.6 [facility]annCHEM EYDWB8019-00-46 23:42:0040[facility]annCHEM PANEL 2019-07-12 23:42:95898Hdvnbcbz ZfdnsgdIZBJOXHJQB2881-27-23 23:42:007.9[facility] TdheoljZQKTEYZWUJ2173-74-77 23:42:004.43[facility] EhczdadCZIYCMRVIB6646-44-08 23:42:0011.3[facility] LotzgaaNOMQJRPWXA8593-81-21 23:42:0034.8[facility] RLXVLEIXLS3608-05-45 23:42:0078.5[facility] ZxtkevpUCUQHZHXRU2342-03-79 23:42:00 Test Item Value Reference Range Interpretation Comments MCH (test code = MCH) 25.5 pg 27.0-31.0 [facility] HqwmgbvPWMWGKCPRJ2905-16-71 23:42:0032.5[facility]annHEMATOLOGY 2019-07-12 23:42:0015.6[facility] XofomycFNVDOBBURV4310-35-62 23:42:85996Isnslnnl GdyeaupHUFNWGCHTI1090-36-03 23:42:009.9[facility] YezcufmPGDHZGPOTL9596-87-98 23:42:0052.2[facility] UfrudfiMGLGNSKKDU3792-04-37 23:42:0034.4[facility] YFGDSDUIPU3676-00-71 23:42:0010.6[facility] RqqwicfNBESSSLOGH5355-59-49 23:42:00 1.0[facility] SjanuvwVFRGJZZXNH5582-03-73 23:42:001.8[facility] HermannHEMATOLOGY 2019-07-12 23:42:004.1[facility] AtdbjilKMTSOBFBYL0310-36-36 23:42:002.7[facility] IbbyxfpUHYUKLEXIR9760-29-63 23:42:000.8[facility] VouvpkrPHANQMBIRU7484-44-74 23:42:000.1[facility] JppnigrUHZXLEUPWF9092-39-38 23:42:000.1[facility] JYXAGKALEG5006-72-61 23:42:001+ *ABN*(07/12/19 6:42 PM)[facility]annCARDIAC KDHWUPC7852-90-06 23:42:00<0.02[facility]annCHEM RRAZB2462-10-00 23:42:00 85[facility]annCHEM PNDLG5637-16-27 23:42:0014[facility]annCHEM PANEL 2019-07-12 23:42:001.37[facility]annCHEM ARXZX5310-46-54 23:42:27702Xiuchgqb [facility]annCHEM CWNCJ3083-58-09 23:42:003.5[facility]annCHEM VXGFX4130-53-50 23:42:42813Yvurddew [facility]annCHE[facility] NQUZJ3015-40-73 23:42:0023[facility]annCHEM XUGXR4965-68-20 23:42:009.2[facility]annCHEM LFVXH6851-22-73 23:42:008.4 [facility]annCHEM JCAPI3945-05-32 23:42:004.0[facility]annCHEM PANEL 2019-07-12 23:42:0018[facility]annCHEM CFPUD6076-92-53 23:42:0011[facility]annCHEM LWATV2136-10-06 23:42:0086[facility]annCHEM TKNVM5109-57-87 23:42:000.4[facility]annCHEM AXBDX9007-81-72 23:42:0014.5[facility]annCHEM IJSNH5657-59-99 23:42:00 Test Item Value Reference Range Interpretation Comments B/C Ratio (test code = B/C Ratio) 10 1 6-25 [facility]annCHEM VNRZF7209-15-09 23:42:004.4[facility]annCHEM PANEL 2019-07-12 23:42:00 Test Item Value Reference Range Interpretation Comments A/G Ratio (test code = A/G Ratio) 0.9 1 0.7-1.6 [facility]annCHEM QNBOM2954-08-17 23:42:0040[facility]annCHEM PANEL 2019-07-12 23:42:36930Qixrjvdm LjhjfigODLWUJSOYU2120-77-72 23:42:007.9[facility] DaimmhkEGWCKKOOAH0074-78-10 23:42:004.43[facility] NoqpzlzHRWOBBTCQY8551-87-04 23:42:0011.3[facility] FeveyojFVJOIOKONP7794-90-89 23:42:0034.8[facility] YCYQCHCSZO4802-96-51 23:42:0078.5[facility] SvdfwfzGEMRFMUUVX1715-51-27 23:42:00 Test Item Value Reference Range Interpretation Comments MCH (test code = MCH) 25.5 pg 27.0-31.0 [facility] BziedxxRFHMZTIFOV3229-47-92 23:42:0032.5[facility]annHEMATOLOGY 2019-07-12 23:42:0015.6[facility] FgaqsdzPTZPWMDRZQ2632-58-01 23:42:69830Xwuxkncp WuqlzijVBBPXYOXGF4789-41-51 23:42:009.9[facility] LqtpiarQDLIHRSDUQ2247-82-65 23:42:0052.2[facility] MeoikmxKYTUJAAPWN2891-76-78 23:42:0034.4[facility] YKHZQCHYSW6305-89-38 23:42:0010.6[facility] RjleeaySCVYMXMRDD5751-27-37 23:42:00 1.0[facility] YoxuvbhXISSVDAVUM3238-71-82 23:42:001.8[facility]annHEMATOLOGY 2019-07-12 23:42:004.1[facility] LgxhhalVCWBNEDYUM4381-61-05 23:42:002.7[facility] DagmiyoYDCLJNXXHV7606-77-61 23:42:000.8[facility] VrnwnifLLAVAPJVJT5660-02-78 23:42:000.1[facility] NkecdjsSYGRWXAQPF2349-28-34 23:42:000.1[facility] VUGDRVWCBC8634-04-39 23:42:001+ *ABN*(07/12/19 6:42 PM)[facility]annCARDIAC ZUDPOWM1197-35-02 23:42:00<0.02[facility]annCHEM MUHAP1334-61-85 23:42:00 85[facility]annCHEM DCIUI8937-71-58 23:42:0014[facility]annCHEM PANEL 2019-07-12 23:42:001.37[facility]annCHEM BWTAQ1815-50-20 23:42:87688Digmcnyb HermannCHEM CADMB1372-98-14 23:42:003.5[facility]annCHEM QQYAB3157-64-95 23:42:16835Sbshcuum HermannCHEM GAHOU6768-27-92 23:42:0023[facility]annCHEM HEOQH6019-44-92 23:42:009.2[facility]annCHEM XCXCU3279-57-95 23:42:008.4 [facility]annCHEM MEMKU4237-02-12 23:42:004.0[facility]annCHEM PANEL 2019-07-12 23:42:0018[facility]annCHEM LCBUE5184-27-71 23:42:0011[facility]annCHEM OVVWM5551-60-87 23:42:0086[facility]annCHEM SNPFT9801-79-85 23:42:000.4[facility]annCHEM LBEGQ2227-45-79 23:42:0014.5[facility]annCHEM TIXFS5943-53-84 23:42:00 Test Item Value Reference Range Interpretation Comments B/C Ratio (test code = B/C Ratio) 10 1 6-25 [facility]annCHEM ZVVCE5095-11-16 23:42:004.4[facility]annCHEM PANEL 2019-07-12 23:42:00 Test Item Value Reference Range Interpretation Comments A/G Ratio (test code = A/G Ratio) 0.9 1 0.7-1.6 [facility]annCHEM KSBIX3196-14-93 23:42:0040[facility]annCHEM PANEL 2019-07-12 23:42:80799Ivnlsufp ElfkjssSSWKISTDWL9906-51-34 23:42:007.9[facility] KjgmptfQGIHSSZKGA2549-93-06 23:42:004.43[facility] DlobdncUDMJWNDKIR8963-88-33 23:42:0011.3[facility] PlftaqzHRKCXTAYAW0592-99-25 23:42:0034.8[facility] SBRTKRNKYJ7226-94-47 23:42:0078.5[facility] UvsqrewITXKQTWIFR5301-83-75 23:42:00 Test Item Value Reference Range Interpretation Comments MCH (test code = MCH) 25.5 pg 27.0-31.0 [facility] BijxpltXEZRPOZZOP8011-05-94 23:42:0032.5[facility] HermannHEMATOLOGY 2019-07-12 23:42:0015.6[facility] KtlcrmxKRPZVDAPSK7248-85-88 23:42:78512Mqaeappg YxzsyznIBBDSEPSWD0694-67-02 23:42:009.9[facility] PwvkwcdFPFPDOXYUO4779-27-52 23:42:0052.2[facility] AfdbbhgTDLLQIBQRP0085-03-78 23:42:0034.4[facility] QEFWDLHZMR2849-44-95 23:42:0010.6[facility] WgtrsloBEIFMHZBVK9016-79-01 23:42:00 1.0[facility] RkhuahbLVCYTJMZRF1013-58-30 23:42:001.8[facility]annHEMATOLOGY 2019-07-12 23:42:004.1[facility] SdzxkvsXSJBYQZCHP1632-60-81 23:42:002.7[facility] QkskibmGKYGBRXLDM1403-82-33 23:42:000.8[facility] RyetlqvOYDRZWTIKZ0019-05-76 23:42:000.1[facility] FuaxtmeZGEQABAHQK6846-04-81 23:42:000.1[facility] WPZXBBNUZD7335-07-55 23:42:001+ *ABN*(07/12/19 6:42 PM)[facility] HermannCARDIAC WCHEOZP7784-77-48 23:42:00<0.02[facility] HermannCHEM SBOAS4132-56-49 23:42:00 85[facility] HermannCHEM AKXHH2773-46-96 23:42:0014[facility]annCHEM PANEL 2019-07-12 23:42:001.37[facility] HermannCHEM SKCZP1187-92-69 23:42:40303Agsukvym HermannCHEM ZIELY2268-21-75 23:42:003.5[facility] HermannCHEM EIYET9814-13-39 23:42:62005Wvwnfbjm [facility]annCHEM EZBNY7210-73-92 23:42:0023[facility]annCHEM UUQRS8176-57-26 23:42:009.2[facility] HermannCHEM WMVFL1339-29-94 23:42:008.4 [facility]annCHEM SXZKM6029-77-23 23:42:004.0[facility] HermannCHEM PANEL 2019-07-12 23:42:0018[facility] HermannCHEM MYFLX9813-63-03 23:42:0011[facility] HermannCHEM CNLEC3621-79-44 23:42:0086[facility] HermannCHEM JWUNG2995-18-76 23:42:000.4[facility] HermannCHEM IBXVD4170-79-39 23:42:0014.5[facility] HermannCHEM JJCHS8376-84-01 23:42:00 Test Item Value Reference Range Interpretation Comments B/C Ratio (test code = B/C Ratio) 10 1 6-25 [facility]annCHEM UTMRR0779-91-85 23:42:004.4[facility] HermannCHEM PANEL 2019-07-12 23:42:00 Test Item Value Reference Range Interpretation Comments A/G Ratio (test code = A/G Ratio) 0.9 1 0.7-1.6 [facility] SYNAS2481-46-94 23:42:0040[facility]annCHE[facility] PANEL 2019-07-12 23:42:65053Flwladcf ZkfrhihSDVPWUDXOZ3426-85-35 23:42:007.9[facility] SjoapshIMDSRQHUJM7135-41-97 23:42:004.43[facility] AgkqctwLQPKTZSQFH5917-52-33 23:42:0011.3[facility] QpsgxwxKOIYZRQQZT3570-91-13 23:42:0034.8[facility] [place] IBIQAFYDPK4821-44-15 23:42:0078.5[facility] WwynvsuKHTNCOJASK1574-66-59 23:42:00 Test Item Value Reference Range Interpretation Comments MCH (test code = MCH) 25.5 pg 27.0-31.0 [facility] EglgenbMMOTVDVPZF8319-18-71 23:42:0032.5[facility]annHEMATOLOGY 2019-07-12 23:42:0015.6[facility] JejxvmhSBQCDRHHDE2123-41-84 23:42:34586Hfpkaizb OeycwuoGYYWAZFVKB9568-60-04 23:42:009.9[facility] CwgrkpbAQUBCHZFAY6839-79-84 23:42:0052.2[facility] VbknikeTUIATGWDNE3003-48-25 23:42:0034.4[facility] BKCOGJFXWS0027-41-94 23:42:0010.6[facility] LazismmFBKHGKCFZD0015-24-57 23:42:00 1.0[facility] UujqeqmMKKLGALVAU9131-25-47 23:42:001.8[facility]annHEMATOLOGY 2019-07-12 23:42:004.1[facility] EeuurtoIQCGPLNZHW0782-23-73 23:42:002.7[facility] LfgtrleQFRHJSSXEO3340-12-65 23:42:000.8[facility] VwzokwzZSKZSBJIPJ7242-88-60 23:42:000.1[facility] NomjrfwKWRHVGJVLK1884-55-28 23:42:000.1[facility] OGKIJNQJCI6109-30-13 23:42:001+ *ABN*(07/12/19 6:42 PM)[facility]annCARDIAC NYPLSRQ5928-47-54 23:42:00<0.02[facility]annCHEM IMMFG3451-19-92 23:42:00 85[facility]annCHEM WNGAV8290-20-94 23:42:0014[facility]annCHEM PANEL 2019-07-12 23:42:001.37[facility]CHE[facility] PNPKK1340-76-29 23:42:08285Xchrsxhv HermannCHEM QCOCY4031-73-85 23:42:003.5[facility]annCHE[facility] DKWEI2162-45-72 23:42:27586Uraquatj HermannCHEM IECXC7197-43-88 23:42:0023[facility]CHE[facility] WUJWG6165-57-69 23:42:009.2[facility]annCHE[facility] AWGNS0297-01-36 23:42:008.4 [facility] XSKPB9097-36-63 23:42:004.0[facility]annCHEM PANEL 2019-07-12 23:42:0018[facility]CHE[facility] SCVLZ9685-78-75 23:42:0011[facility]CHE[facility] LPMLA4830-36-87 23:42:0086[facility]CHE[facility] INRYF0336-92-94 23:42:000.4[facility]annCHE[facility] NHCUP2431-70-42 23:42:0014.5[facility]annCHE[facility] PITYW7924-44-95 23:42:00 Test Item Value Reference Range Interpretation Comments B/C Ratio (test code = B/C Ratio) 10 1 6-25 [facility] YKKII2633-02-80 23:42:004.4[facility]annCHEM PANEL 2019-07-12 23:42:00 Test Item Value Reference Range Interpretation Comments A/G Ratio (test code = A/G Ratio) 0.9 1 0.7-1.6 [facility] EZLTM6048-51-27 23:42:0040[facility]annCHE[facility] PANEL 2019-07-12 23:42:02632Iwfdcwrh SymtruiOGQKZJDLPA0309-90-05 23:42:007.9[facility] OxihhilFQWAYGNXKJ1505-30-81 23:42:004.43[facility] PnprtkhRYWTNPHDEU7208-89-12 23:42:0011.3[facility] YkmfrxtDFLRNQVRHW9488-05-78 23:42:0034.8[facility] Bne VAKHPHIACU7192-74-44 23:42:0078.5[facility] CmraiilQQLHGDKKEV0807-98-73 23:42:00 Test Item Value Reference Range Interpretation Comments MCH (test code = MCH) 25.5 pg 27.0-31.0 [facility] QcaerxgEGODLFQUVP0257-03-11 23:42:0032.5[facility]annHEMATOLOGY 2019-07-12 23:42:0015.6[facility] GgjoiidOLOBXSRIUM7574-15-38 23:42:54161Qrojrhbe HkoabrrSIKORDGXRN1319-10-61 23:42:009.9[facility] OodxhywJJXAPDWZVM1846-36-95 23:42:0052.2[facility] LkdgktcKJIMZZTYSY1580-42-95 23:42:0034.4[facility] SJDSLMQDVP1110-07-46 23:42:0010.6[facility] EdmbnwvYPCEQOHEMN2360-60-82 23:42:00 1.0[facility] IzovksjDDFKYYFEEF0383-14-54 23:42:001.8[facility]annHEMATOLOGY 2019-07-12 23:42:004.1[facility] DrlmukyTLEKXVJJFK3610-15-59 23:42:002.7[facility] PpngxphLCTQGIDNPE4477-48-98 23:42:000.8[facility] XsevmobKPCDMGZQGQ9986-91-05 23:42:000.1[facility] HnqtektWOMCJKGGPL8845-20-48 23:42:000.1[facility] [place] WVXRRJXEZX1323-09-76 23:42:001+ *ABN*(07/12/19 6:42 PM)[facility]annCARDIAC IYUIBDL1096-83-78 23:42:00<0.02[facility]annCHEM UTZUZ0721-44-30 23:42:00 85[facility]annCHEM YPMYH7259-59-95 23:42:0014[facility]annCHEM PANEL 2019-07-12 23:42:001.37[facility]annCHEM UYKFA2338-76-90 23:42:00578Tfvlriit HermannCHEM KWOCY1161-73-91 23:42:003.5[facility]annCHEM IGIRE1826-36-84 23:42:01599Wybqpmhw HermannCHEM NHOTM4376-28-36 23:42:0023[facility]annCHE[facility] EDLAA5643-67-34 23:42:009.2[facility]annCHEM ISRYL9592-00-37 23:42:008.4 [facility]CHE[facility] JRGIR4264-63-94 23:42:004.0[facility]annCHEM PANEL 2019-07-12 23:42:0018[facility]annCHE[facility] EKFOI1651-36-70 23:42:0011[facility]annCHE[facility] GWMSK4301-76-66 23:42:0086[facility]annCHEM XYMXY8500-13-06 23:42:000.4[facility]annCHEM WQSLK5461-52-30 23:42:0014.5[facility]annCHEM VNPLA1433-38-55 23:42:00 Test Item Value Reference Range Interpretation Comments B/C Ratio (test code = B/C Ratio) 10 1 6-25 [facility]CHE[facility] CITDR3244-11-58 23:42:004.4[facility]annCHEM PANEL 2019-07-12 23:42:00 Test Item Value Reference Range Interpretation Comments A/G Ratio (test code = A/G Ratio) 0.9 1 0.7-1.6 [facility]CHE[facility] CETYW8578-08-65 23:42:0040[facility]annCHEM PANEL 2019-07-12 23:42:09756Msrxlolw KjnybbwSAJFOHNKKB0581-09-70 23:42:007.9[facility] OerjxluJNPHCCGKXM4626-63-58 23:42:004.43[facility] LawfjqnSCIKHCMZUF9578-99-49 23:42:0011.3[facility] RglrrdsSHCQFCTQOI8870-80-29 23:42:0034.8[facility] ADPRPTMMYS3829-20-59 23:42:0078.5[facility] QsmkasgEVXBIFUQKH1809-40-85 23:42:00 Test Item Value Reference Range Interpretation Comments MCH (test code = MCH) 25.5 pg 27.0-31.0 [facility] AoszhtcWNHPTAJWLN5882-74-87 23:42:0032.5[facility]annHEMATOLOGY 2019-07-12 23:42:0015.6[facility] GbsiokaTYDANHVWCV1997-72-93 23:42:53896Dfqgrvyk MwqxnpuKYXHIYXWUN1124-29-13 23:42:009.9[facility] LidqipcPQGPEUFOUA0312-58-42 23:42:0052.2[facility] XpsdeheRAXIQFPTRX6626-70-73 23:42:0034.4[facility] KQWAYFVTCV6456-71-77 23:42:0010.6[facility] OvmubhdTGMLXWWNOI2168-29-16 23:42:00 1.0[facility] VvwohybGYFJJJFQNX3883-95-49 23:42:001.8[facility]annHEMATOLOGY 2019-07-12 23:42:004.1[facility] KjqphuxEEKHNWUIFC2613-94-88 23:42:002.7[facility] EayvnzwFLALUPLXEC2147-85-54 23:42:000.8[facility] NuniasxJXCCSBPZRI5299-47-24 23:42:000.1[facility] NkijolqQZMICYJQOW2441-15-51 23:42:000.1[facility] [place] AYXUNZDWYK7732-02-02 23:42:001+ *ABN*(07/12/19 6:42 PM)[facility]annCHEM PANEL 2013-10-16 10:03:001.9[facility]annCHEM VXQSL1054-58-21 10:03:003.5[facility] McdfxxfJMMILLHUNNII8249-95-11 10:03:0012.5[facility] PszvdtpIMSIHLLVKXLW8475-16-65 10:03:92873Phmevtxu UuklyxvJMUUQHCUTILQ7995-59-51 10:03:92706Vuvipmyp [place] YNPUPECDLFVM0839-55-80 10:03:003.5[facility] QilwfzxKCDEMGCXMJGM5355-22-05 10:03:0041[facility] LelkfcfVIWDTIPUUBIQ9326-94-06 10:03:0089[facility] GPXEYDCIYWIW3492-58-36 10:03:0015[facility] GiuvojkFVJHRXILEZFS4849-77-51 10:03:00 9.0[facility] UhetoxgDYEIRFBNKAIU8470-40-72 10:03:0025[facility]annELECTROLYTES 2013-10-16 10:03:001.4[facility] ZbvtnosQOZARGSTFK3378-16-41 10:03:006.6[facility] KtvrjglUQSGESLEQZ9890-95-90 10:03:003.95[facility] XjfhyekGJUCXLDTBK6118-79-69 10:03:0062.8[facility] NuazrlmECQTWMOUOH4140-04-27 10:03:0024.9[facility] WNQDOCVLQE9600-36-74 10:03:007.6[facility] RkbisbgWSXOESVWBF9829-90-67 10:03:009.4 [facility] PuxrvvjEPDTHUYHXI6228-09-48 10:03:00 Test Item Value Reference Range Interpretation Comments MCH (test code = MCH) 19.2 pg 27.0-31.0 [facility] DlrhdiiXXWOVSADIB7548-75-24 10:03:49694Nzigmjel HermannHEMATOLOGY 2013-10-16 10:03:0020.6[facility] DbmipicKWZTYNLRZD2337-83-08 10:03:0030.5[facility] KqxlxycQJKILJWSCM9106-85-57 10:03:000.1[facility] VpekorxOKFVTTCHPA8321-25-07 10:03:000.1[facility] SxiwzzrDSUAVIJJYC4150-04-29 10:03:00Slight *ABN*(10/16/13 5:03 AM)[facility] DbmaybjFVDIRQBQLB4200-19-71 10:03:00Slight (10/16/13 5:03 AM) [facility] WglsuqiBIZDHVSWNA9083-72-03 10:03:00Slight (10/16/13 5:03 AM)[facility] DoseilyYDHISJZWKL1726-77-89 10:03:003+ (10/16/13 5:03 AM)[facility] [place] AQMMTOHHDW4601-92-62 10:03:000.6[facility] QddtrvxCMMNCIYDHJ1640-85-76 10:03:003.6 [facility] AvohrdiPYVMPVKAIL9297-88-61 10:03:002.1[facility] HermannHEMATOLOGY 2013-10-16 10:03:001.8[facility] OxqobvhTBFOFKTOXR9894-89-72 10:03:001.4[facility] AmtgonhKKGJIVCOXA6843-19-44 10:03:0032.4[facility] TxxmjsjNHMCHTIHIB0375-25-98 10:03:008.9[facility] TxnxfbuSJKMYIMCCK4858-58-07 10:03:00Normal (10/16/13 5:03 AM) [facility] WvovqwzWKEOKPLDCU0778-39-98 10:03:0055.5[facility] HermannCHEM PANEL 2013-10-16 10:03:001.9[facility] HermannCHEM OMCYY3584-63-53 10:03:003.5[facility] UaxfayiDGBAROCACTAR0209-99-18 10:03:0012.5[facility] HfpfbkrVCTPMAUJBRBF0283-96-80 10:03:84468Wumhpnun HdyxomxEJBHRXUINUNV2555-87-50 10:03:97656Ednkppvl [place] YYVWXGIARGRF0798-18-66 10:03:003.5[facility] RjprkccEURLFDJBVYRQ8316-18-25 10:03:0041[facility] QtutwaaEIHEVFSCNZWN9411-74-69 10:03:0089[facility] VHXFXRPMQMUV7683-45-64 10:03:0015[facility] JlqixuyRUTGDWNBXXFG3406-83-45 10:03:00 9.0[facility] NvwgkrpHRNBJMDWYOIL3929-34-74 10:03:0025[facility] HermannELECTROLYTES 2013-10-16 10:03:001.4[facility] IxdywjjRWCVMNPKCW3649-06-91 10:03:006.6[facility] VruqmxoSVRRAQEZBO3457-88-64 10:03:003.95[facility] PsfdpdjWOTGTXQVDE4369-11-35 10:03:0062.8[facility] LweinxwXDJQZESQIF4868-74-89 10:03:0024.9[facility] [place] HQLXOLGBTT3195-55-43 10:03:007.6[facility] WqsowzpJPTGWVMFKX1272-46-83 10:03:009.4 [facility] JndqrqnWRBIOANXLI1855-64-99 10:03:00 Test Item Value Reference Range Interpretation Comments MCH (test code = MCH) 19.2 pg 27.0-31.0 [facility] IorauezVMZDLZUDTD9129-91-27 10:03:24907Eiganjtc HermannHEMATOLOGY 2013-10-16 10:03:0020.6[facility] TpqihpbCXZRPNKPYY7225-84-65 10:03:0030.5[facility] WafmbogGZCVZAKCYR2138-37-30 10:03:000.1[facility] AwlycmoHQEPPQVHJS7389-99-29 10:03:000.1[facility] JhuqrpyQWYISDREGU5576-55-36 10:03:00Slight *ABN*(10/16/13 5:03 AM)[facility] UtoafmzHDJOXTUQBB6558-57-63 10:03:00Slight (10/16/13 5:03 AM) [facility] JciyistAYQINWAEQR0788-91-72 10:03:00Slight (10/16/13 5:03 AM)[facility] ZagaoptMIYEWCOBZD4262-32-50 10:03:003+ (10/16/13 5:03 AM)[facility] [place] FTUKQJJNYL5401-70-86 10:03:000.6[facility] LacfaysWSKXECCCWC2450-15-16 10:03:003.6 [facility] IgsntjyMTDQRQRGGJ8039-55-02 10:03:002.1[facility] HermannHEMATOLOGY 2013-10-16 10:03:001.8[facility] QiuwvtuNGJCEYOCKH7759-46-98 10:03:001.4[facility] VzchbthKGTXYPFWFT6697-54-08 10:03:0032.4[facility] WftgcgcCRSQAHCRDO1713-06-05 10:03:008.9[facility] UtwfkbwFQMKIGCAJG7590-66-28 10:03:00Normal (10/16/13 5:03 AM) [facility] JrbllelADMWXQXDWR5254-11-55 10:03:0055.5[facility] HermannCHEM PANEL 2013-10-16 10:03:001.9[facility] HermannCHEM HVIWU6764-86-11 10:03:003.5[facility] MvrhiguFNNSSNYUWPWV0975-05-10 10:03:0012.5[facility] XybhhfdJKVMCVTDNJNP3460-29-18 10:03:09703Dlgpwvqi LuladwvKXUVEPBKVAZX0431-59-30 10:03:20129Obolfvah Ben VGDZGFSVZKCU3743-15-34 10:03:003.5[facility] AmmuaehZQYTOIMDLCFK0412-00-15 10:03:0041[facility] GdlovlxXBJOIDMYZMUW4525-36-86 10:03:0089[facility] [place] EIMUGHSHTRRH7568-43-74 10:03:0015[facility] QsekdtrSCQGOXEVMWBV2907-88-50 10:03:00 9.0[facility] PrfbyykYFIJBHJXSEQG8114-80-96 10:03:0025[facility] HermannELECTROLYTES 2013-10-16 10:03:001.4[facility] QctqciiTPCPWHQHUW4698-27-11 10:03:006.6[facility] SgthpeoMCLQHLEVUH7412-71-05 10:03:003.95[facility] ZpwbjggDOKLBFRKYS1011-98-08 10:03:0062.8[facility] QxfcvouRNPQMDXTAM8314-45-61 10:03:0024.9[facility] [place] WNQCRDSYPH2927-17-98 10:03:007.6[facility] NyhtspoZSQVYHDOHV5620-57-25 10:03:009.4 [facility] SqmtehrSPXAGUNEHJ0946-51-91 10:03:00 Test Item Value Reference Range Interpretation Comments MCH (test code = MCH) 19.2 pg 27.0-31.0 [facility] CenytuhIYLYFOETHY8452-91-45 10:03:58057Qcbgrmhw HermannHEMATOLOGY 2013-10-16 10:03:0020.6[facility] ZjpakugHZWCQTQXXB6732-69-36 10:03:0030.5[facility] RiazwcdBYFYGYRORD1825-28-32 10:03:000.1[facility] VhbenweVNEEWAVVXT8750-66-78 10:03:000.1[facility] NnleygoHVAPBAHGGI3498-13-04 10:03:00Slight *ABN*(10/16/13 5:03 AM)[facility] McrbxshLGGEQGMBEZ3678-01-64 10:03:00Slight (10/16/13 5:03 AM) [facility] IytgqdsPESEJCYJYL2448-23-08 10:03:00Slight (10/16/13 5:03 AM)[facility] QswcdayMYRSWTHWAE9987-85-49 10:03:003+ (10/16/13 5:03 AM)[facility] TSRGMAPDLP1298-99-92 10:03:000.6[facility] UvoluttHVDLWYEQSE7358-05-86 10:03:003.6 [facility] LpygllgREKENFRJUZ0676-08-48 10:03:002.1[facility] HermannHEMATOLOGY 2013-10-16 10:03:001.8[facility] IngssakENWAIBFZRM9867-98-31 10:03:001.4[facility] XbfgbrxSBUAUPSNYC0191-49-56 10:03:0032.4[facility] IpzsndcZGUARLLFCI3496-83-25 10:03:008.9[facility] KzapkxoLDDOJSWKZY6605-10-49 10:03:00Normal (10/16/13 5:03 AM) [facility] NtuxjkcHOXVLCWAUX9899-20-88 10:03:0055.5[facility] HermannCHEM PANEL 2013-10-16 10:03:001.9[facility] HermannCHEM DMVSN7684-73-92 10:03:003.5[facility] UyoismnPTBETVEJKBKP1723-00-34 10:03:0012.5[facility] XeiisduCYZZZXCJHSEP0833-61-67 10:03:81597Efvatwbj UrpjsksANMIWQVVYWCG7171-23-36 10:03:30993Lcmzahrx Ben AGFVCXZKCVGQ5340-65-99 10:03:003.5[facility] VyquafnLODJXGSQETHR1300-60-01 10:03:0041[facility] NgdcbbuOOXZKMBRWUYM0870-79-22 10:03:0089[facility] [place] ZQOTEKWSEOEC3786-41-49 10:03:0015[facility] QrbrukjSXPURLTWEFJN7164-27-08 10:03:00 9.0[facility] EfzwyatLUMRAZFLJWLU5485-06-44 10:03:0025[facility] HermannELECTROLYTES 2013-10-16 10:03:001.4[facility] YiilcgnLJZPTCNFFT4817-30-64 10:03:006.6[facility] TuepztdKKAAEZZNWW7403-85-21 10:03:003.95[facility] UplewelMINUYBSLZL1081-73-07 10:03:0062.8[facility] JnqyiejABSNUVTZYP1694-15-06 10:03:0024.9[facility] [place] RAQJCFCQTC6703-32-88 10:03:007.6[facility] UpdeysqGHVLONCDJN0012-92-09 10:03:009.4 [facility] YlvcpgxWSNPEBRJOV8828-72-99 10:03:00 Test Item Value Reference Range Interpretation Comments MCH (test code = MCH) 19.2 pg 27.0-31.0 [facility] QjlmvgiTISCEIRNVD8685-83-93 10:03:21151Cvzkujhh HermannHEMATOLOGY 2013-10-16 10:03:0020.6[facility] FfiuwviNBQBSLSWSD9766-59-24 10:03:0030.5[facility] NholpghLECMMFLRKM3578-61-79 10:03:000.1[facility] PnqygjtVPIXSRTWPR9030-37-92 10:03:000.1[facility] ImnxmzhWWWWERAVBA6196-27-91 10:03:00Slight *ABN*(10/16/13 5:03 AM)[facility] TjpvbrrYGGMHWKVCZ6741-84-43 10:03:00Slight (10/16/13 5:03 AM) [facility] OirgpruEHVVDZXEUP4603-50-84 10:03:00Slight (10/16/13 5:03 AM)[facility] TyqbaqtZOEKXECRZQ5441-05-77 10:03:003+ (10/16/13 5:03 AM)[facility] [place] YVBGPXSBEJ1118-40-19 10:03:000.6[facility] DxolsivSNMMWNVOJQ7441-39-07 10:03:003.6 [facility] MnvrmjwBQQHTWDGRL2214-73-17 10:03:002.1[facility] HermannHEMATOLOGY 2013-10-16 10:03:001.8[facility] QflwtttXWBEKCCKPK5484-58-95 10:03:001.4[facility] AiwxqzjTBNTEGCEGD5098-26-85 10:03:0032.4[facility] ZojkjozEMRNAROYQJ3806-72-50 10:03:008.9[facility] MdvykovBURAULDRAW2910-11-81 10:03:00Normal (10/16/13 5:03 AM) [facility] GvjsflvTUVVJIOYXL8670-79-34 10:03:0055.5[facility] HermannCHEM PANEL 2013-10-16 10:03:001.9[facility] HermannCHEM PLJFU0618-79-17 10:03:003.5[facility] RwnncojKANODNGVICIC9897-32-45 10:03:0012.5[facility] EguxrodCBBOWQBUGWWB4641-64-34 10:03:52305Ifblhxrv RvkyrwmGLFZRJBYRWXK3357-05-62 10:03:10592Iqeizuov Ben VHOZGETIREMR5913-33-96 10:03:003.5[facility] SqlaokgULYRYWBKRCUG0947-72-93 10:03:0041[facility] GlynkrhHFLLHPRYIEWA6076-05-71 10:03:0089[facility] [place] WLOQRSUBPCYW6344-75-34 10:03:0015[facility] CozeevfZIYPXKXODLDP7332-12-74 10:03:00 9.0[facility] RlvbtzkKWBDNYQPUNPX2632-73-04 10:03:0025[facility] HermannELECTROLYTES 2013-10-16 10:03:001.4[facility] RqdigijCERFBEGXWU6972-66-65 10:03:006.6[facility] SmqcqfnSHQXKJRNJI1274-45-26 10:03:003.95[facility] IyzlbsuCLCZRQVYVP8749-69-53 10:03:0062.8[facility] TnmzgeyICSYIPMNXW1014-72-97 10:03:0024.9[facility] [place] BPKIRLHZSX1625-53-28 10:03:007.6[facility] TnblihoHLNZHTNPBW4238-72-98 10:03:009.4 [facility] LbcsbioBSJFCPERQT8199-90-90 10:03:00 Test Item Value Reference Range Interpretation Comments MCH (test code = MCH) 19.2 pg 27.0-31.0 [facility] GhsurxtRHIMDFDTLJ5553-52-18 10:03:50547Znyxmbyq HermannHEMATOLOGY 2013-10-16 10:03:0020.6[facility] GwolziyVPRRLZFKPH2619-92-78 10:03:0030.5[facility] McejghcYGDZZFOJJZ7104-82-44 10:03:000.1[facility] GfcvtnsPPRHFLJGJR9681-30-22 10:03:000.1[facility] NabytqvHUNPTFUXUZ7288-85-33 10:03:00Slight *ABN*(10/16/13 5:03 AM)[facility] JtyowhvDVTZWNYYBP3580-87-33 10:03:00Slight (10/16/13 5:03 AM) [facility] BpuqmnfNTVKPEAKPL2221-56-83 10:03:00Slight (10/16/13 5:03 AM)[facility] YmdwtzhXUPONNXJII0333-34-00 10:03:003+ (10/16/13 5:03 AM)[facility] [place] MEUEZQCXSZ2037-91-71 10:03:000.6[facility] KfxmajhZIATMWPLWJ6889-54-74 10:03:003.6 [facility] LtkurjfQPMXSCNIHN6286-23-57 10:03:002.1[facility] HermannHEMATOLOGY 2013-10-16 10:03:001.8[facility] OmktdqyLLMJAJLZMN1094-47-09 10:03:001.4[facility] DpwdispWRJPNNZUAF5990-80-91 10:03:0032.4[facility] CahdoaiYSTSWEQDPD0723-66-18 10:03:008.9[facility] AsfypxrSIMUSKTRXD3053-22-38 10:03:00Normal (10/16/13 5:03 AM) [facility] JjycxfaBDWHTOBURN9460-02-96 10:03:0055.5[facility] HermannCHEM PANEL 2013-10-16 10:03:001.9[facility] HermannCHEM JHFCE3761-71-50 10:03:003.5[facility] NfsxuepQGEMHMBVPHGQ6639-16-91 10:03:0012.5[facility] RhnlmdiXHKXXUMDWMVD1575-48-48 10:03:87799Zaexypjs YothlkpNZJBMYLGKXLU3265-66-15 10:03:83228Jebnblws Ben YDYKXDYDNCWA8153-93-43 10:03:003.5[facility] ZvbolmtOMJGSCVADUQW9840-65-33 10:03:0041[facility] PryoihrNIRVEEUDNYXM3323-75-13 10:03:0089[facility] [place] OMABTEUGRIVS1193-08-64 10:03:0015[facility] UrnjafbSWBQPCNDYVGY2284-02-65 10:03:00 9.0[facility] EucmytmGGXIWOESIQHP2228-11-62 10:03:0025[facility] HermannELECTROLYTES 2013-10-16 10:03:001.4[facility] MztznloOKNDIEOGNY5146-59-59 10:03:006.6[facility] BicucqmZNMRLJIOOM6785-84-28 10:03:003.95[facility] UndllxfUPQNEDSQRD2757-34-49 10:03:0062.8[facility] DidkmwqLZDVUNNDUT8503-34-58 10:03:0024.9[facility] KMAIQPKTUM6198-31-39 10:03:007.6[facility] IclxdukERWCFPPQPB3607-91-38 10:03:009.4 [facility] RgcuxghOOPHZQRYYU8151-83-67 10:03:00 Test Item Value Reference Range Interpretation Comments MCH (test code = MCH) 19.2 pg 27.0-31.0 [facility] EgdgafvCBVEVMGDUA2611-07-79 10:03:18491Gwkhbuyj HermannHEMATOLOGY 2013-10-16 10:03:0020.6[facility] OepzfnwZUQDWHUPPN1778-68-35 10:03:0030.5[facility] QpuixgfHOYCWVRPVR5128-87-51 10:03:000.1[facility] YqnqllaRVEJFBMLNT1866-89-47 10:03:000.1[facility] AjgwokoLHSZEBBNRA4267-17-63 10:03:00Slight *ABN*(10/16/13 5:03 AM)[facility] GupcyqcYNTHBEBMJD9655-85-91 10:03:00Slight (10/16/13 5:03 AM) [facility] WnzfwtrFDKGBZOOGH2649-68-14 10:03:00Slight (10/16/13 5:03 AM)[facility] FpgdssyCKFGHKNEFQ4306-67-81 10:03:003+ (10/16/13 5:03 AM)[facility] LSJEARAGXQ7194-72-02 10:03:000.6[facility] KpesmxaSVHSFIKZVW8583-51-04 10:03:003.6 [facility] VagyyrjYSCUEXDSCL3305-12-46 10:03:002.1[facility] HermannHEMATOLOGY 2013-10-16 10:03:001.8[facility] LbewwqlMUIEGCLKIW9415-75-24 10:03:001.4[facility] TtxiuuoJHGQOSAQSK1431-58-72 10:03:0032.4[facility] KbqrnuqDBSESHRXEZ5503-74-59 10:03:008.9[facility] EeppydoJREVXDEOWH8775-64-12 10:03:00Normal (10/16/13 5:03 AM) [facility] GslchanNZAHMLQQXP4328-20-42 10:03:0055.5[facility] HermannCHEM PANEL 2013-10-16 10:03:001.9[facility] HermannCHEM UZGKS5202-88-49 10:03:003.5[facility] ZhrmgxwLAKFGRGCTLSR0947-67-68 10:03:0012.5[facility] VkxsswkKAPIUDZPZCCP9097-16-03 10:03:45067Mmwutijq WboudrnNSSOVSUFRUBL3637-60-50 10:03:36019Jpksmpjh Ben PTDKZQQXBIBD3412-34-37 10:03:003.5[facility] WhkskcdSQWPDVURLIPK9785-13-18 10:03:0041[facility] EbnmtkqTNLBMPPIXXIW5634-59-25 10:03:0089[facility] GMAKMQPRUDHI2697-88-10 10:03:0015[facility] WllcbwaAGCYKRLIAIMC8062-54-63 10:03:00 9.0[facility] PdjmenvCRVKHPXXRQRA1872-09-63 10:03:0025[facility] HermannELECTROLYTES 2013-10-16 10:03:001.4[facility] UydxugnKZGBIVHPIU9436-48-77 10:03:006.6[facility] TeyapxgILZWODZAKZ2419-01-84 10:03:003.95[facility] IdqqngkBFXTVKADFT3721-90-26 10:03:0062.8[facility] AxcquhdJSQJJIGXNH8626-45-05 10:03:0024.9[facility] BVBMIEYKEQ5440-74-21 10:03:007.6[facility] NfgaidxLZVXNXTEVD8922-28-43 10:03:009.4 [facility] PessnblDTXWTMZTLR7416-61-58 10:03:00 Test Item Value Reference Range Interpretation Comments MCH (test code = MCH) 19.2 pg 27.0-31.0 [facility] NdwcvmlRXECSGMWBG3303-24-34 10:03:60270Wquqoilb HermannHEMATOLOGY 2013-10-16 10:03:0020.6[facility] VaaqtopDVTIAMHKOX1458-25-99 10:03:0030.5[facility] RclixitPWHQDXNWAR4039-82-71 10:03:000.1[facility] JlpptueUEBYRSUCFE9244-80-13 10:03:000.1[facility] NzovmtgSHHDTUXEBG2910-11-95 10:03:00Slight *ABN*(10/16/13 5:03 AM)[facility] QcgtjxwOQBHYKMGBH1088-75-95 10:03:00Slight (10/16/13 5:03 AM) [facility] AmheiobRFEJGLABBL5163-87-79 10:03:00Slight (10/16/13 5:03 AM)[facility] XkobjdeUYKAZKJQDP8966-73-88 10:03:003+ (10/16/13 5:03 AM)[facility] LTPQJSGDWP4537-67-05 10:03:000.6[facility] QdymkcoDBIRPIWGAA8821-93-38 10:03:003.6 [facility] DspjbxnWVANTWEZEE9964-43-87 10:03:002.1[facility] HermannHEMATOLOGY 2013-10-16 10:03:001.8[facility] GzirmwsNTDPUVSFPF8793-29-09 10:03:001.4[facility] OqypqioBQKIWUEYJB3863-14-35 10:03:0032.4[facility] HalebasGKQSUZOZRY4923-31-84 10:03:008.9[facility] YcerevkTZAAMHWZIO4475-38-86 10:03:00Normal (10/16/13 5:03 AM) [facility] HflpgddKUTHYGXHCL1002-16-35 10:03:0055.5[facility] HermannCHEM PANEL 2013-10-16 10:03:001.9[facility] HermannCHEM YDGTL7526-97-95 10:03:003.5[facility] VlvrytdFGFIRFIPMGTV1066-23-91 10:03:0012.5[facility] MjxjrraRCCGAIXEFLAD9317-59-04 10:03:57591Uwhxhmtm LrqmwzgOFQISDFCUPCD8349-86-13 10:03:82177Imzkgcmr [place] DQDXFDCLEEKP7143-83-63 10:03:003.5[facility] QmaunnvPRUSLDCDCAXQ8214-63-10 10:03:0041[facility] NnygwbjMXQRFFVFPSKD5085-54-92 10:03:0089[facility] CHWJZUWFLCFI6128-05-43 10:03:0015[facility] SmwxwzpMBRAXMHQDDNP8073-75-94 10:03:00 9.0[facility] KfzwweeQURHUCEBNZQP8836-84-71 10:03:0025[facility] HermannELECTROLYTES 2013-10-16 10:03:001.4[facility] FellpfyHCDXXHJFJW6838-71-66 10:03:006.6[facility] UzddbcbIQYWDRTFMW4889-70-27 10:03:003.95[facility] LhdwpbdOEEJSWNIVY0363-75-97 10:03:0062.8[facility] JwthrhcKDQKYQOFIQ8063-26-64 10:03:0024.9[facility] YARTIXDARF5784-52-08 10:03:007.emorial DxvntymNRVABORRQO4136-91-41 10:03:009.4 [facility] HzjkphiHJNYOARVMM5483-28-13 10:03:00 Test Item Value Reference Range Interpretation Comments MCH (test code = MCH) 19.2 pg 27.0-31.0 [facility] FqyaowhOARBEBACPK4772-10-08 10:03:87351Fhpvvvom HermannHEMATOLOGY 2013-10-16 10:03:0020.6[facility] YzvxvheDPCNASPAGJ5182-35-86 10:03:0030.5[facility] SikatyqFHAZGUBRYC4050-60-42 10:03:000.1[facility] GuovnpbWSRYIXRCRB5486-24-08 10:03:000.1[facility] BolwtdfPXXBMCWRPM0744-94-88 10:03:00Slight *ABN*(10/16/13 5:03 AM)[facility] XniqfpyJLMEKFDFSK2777-39-43 10:03:00Slight (10/16/13 5:03 AM) [facility] ZydemdsEKXELNUNCA6369-10-82 10:03:00Slight (10/16/13 5:03 AM)[facility] QtmjnyzYHMKAXTLOK8184-81-70 10:03:003+ (10/16/13 5:03 AM)[facility] WAFZJQGXMX1575-02-25 10:03:000.6[facility] TqcujddJBGBKOSIWV0788-24-99 10:03:003.6 [facility] ClopdmeOLZDOLPZZY7057-38-08 10:03:002.1[facility] HermannHEMATOLOGY 2013-10-16 10:03:001.8[facility] JhdytijJOVPELVOVV5418-11-37 10:03:001.4[facility] TlvnlfmGHXPOLJCZS2311-89-55 10:03:0032.4[facility] DuqsvnhWLKPFLCJYN9805-50-36 10:03:008.9[facility] HxjgsyuIIYXJWZNTT5980-00-44 10:03:00Normal (10/16/13 5:03 AM) [facility] EgxyiukJUHMPTGNPX4625-94-94 10:03:0055.5[facility] HermannCHEM PANEL 2013-10-16 10:03:001.9[facility] HermannCHEM GMKXN6044-08-46 10:03:003.5[facility] HbrxebjOOSGAMNEZEUM7647-68-27 10:03:0012.5[facility] XpuyxalZISOEQLMQORM6870-71-60 10:03:61819Ppqyhjwr QxbuaauHTFMZMARBZAW9128-11-28 10:03:41491Lvrbjgcy Ben TZFNTPLQJPAD9386-22-21 10:03:003.5[facility] AqdnbwuDBQGHETCITZQ4215-61-25 10:03:0041[facility] QsfzzzeONFBTGOMCQCN5970-67-97 10:03:0089[facility] LTGVJZIREGVZ2695-64-22 10:03:0015[facility] GahovzkOUXTEVITEGOB4695-55-27 10:03:00 9.0[facility] YyesjueFBLXTSQXFUQV8432-88-17 10:03:0025[facility] HermannELECTROLYTES 2013-10-16 10:03:001.4[facility] UfsdpxnPMQNSYQWNX9231-92-00 10:03:006.emorial LknrnftNJKFPUPDEH9929-02-29 10:03:003.95[facility] PintkdbKLDRNHBLPN7053-15-41 10:03:0062.8[facility] NvtrkruBTOBVPRVRK1018-85-79 10:03:0024.9[facility] [place] IBDGJRVWGX8498-55-42 10:03:007.6[facility] DwsgbcpYKBNRAGFFT3480-68-26 10:03:009.4 [facility] IszjufeHNWXBWGDAF1742-87-45 10:03:00 Test Item Value Reference Range Interpretation Comments MCH (test code = MCH) 19.2 pg 27.0-31.0 [facility] GhalhlsWVSWSPCPSQ1983-35-47 10:03:22282Aubagkxj HermannHEMATOLOGY 2013-10-16 10:03:0020.[facility] SofgghtWVTTDIVRHE2504-26-52 10:03:0030.5[facility] ZgqrigxQWDEEUXBOC6579-73-23 10:03:000.1[facility] TypwyttBHDUAPPFQF4252-68-50 10:03:000.1[facility] ZzzjchlISGGKAOSSI2820-02-75 10:03:00Slight *ABN*(10/16/13 5:03 AM)[facility] NsdqzydKIALAPVXUM9305-84-53 10:03:00Slight (10/16/13 5:03 AM) [facility] OmszxgeFBIVVDDDHW8022-26-74 10:03:00Slight (10/16/13 5:03 AM)[facility] ImxmhtuLPAWBGWGNL5280-56-26 10:03:003+ (10/16/13 5:03 AM)[facility] IIIUGDDCHY1079-99-71 10:03:000.emorial ZhxpnasTDXCRYAKDF6040-43-19 10:03:003.6 [facility] IyxbxdfNSBAXZNAOW7615-83-25 10:03:002.1[facility] HermannHEMATOLOGY 2013-10-16 10:03:001.8[facility] IvthqwdWGSRWZTFQS2711-70-97 10:03:001.4[facility] MutlejzQZXSEWCJGW9879-16-80 10:03:0032.4[facility] AgrivniBULJRXONEZ8506-85-11 10:03:008.9[facility] QgscwyrDOZOTGKJOM4623-23-81 10:03:00Normal (10/16/13 5:03 AM) [facility] SdavpdlDIUFROSRCF1861-45-18 10:03:0055.5[facility] HermannCHEM PANEL 2013-10-16 10:03:001.9[facility] HermannCHEM FPVIA3055-32-93 10:03:003.5[facility] GcptlohOVAVBODFBNEZ4559-78-74 10:03:0012.5[facility] SzbqsqyWCVCLIEEXRCG0967-23-44 10:03:86769Svjhgxbx MijikxwZCLYWBTACNCT2874-46-74 10:03:17781Lutqeboc [place] KREHIZZOBMYN5908-65-55 10:03:003.5[facility] ZrfqmdaAYJCUXUJKRLJ1127-43-21 10:03:0041[facility] DgcmcxfVYXMZRUMWYNL7118-49-65 10:03:0089[facility] CWITYOQUPBYB3083-55-19 10:03:0015[facility] GgvnnafIZWNKCOWQDKJ5454-89-34 10:03:00 9.0[facility] ZvjuqzqXZWAHOWBFMKE5367-22-22 10:03:0025[facility] HermannELECTROLYTES 2013-10-16 10:03:001.4[facility] AmthtedVIEHDYMMXU3334-89-68 10:03:006.emorial JvixkcfBXDQMBSOQU5774-42-79 10:03:003.95[facility] NoqpyxpUJMZLSQGBK7550-84-03 10:03:0062.8[facility] PqxtvrxOZLFKEIHPW8314-32-19 10:03:0024.9[facility] [place] MHOXYPTVIM2004-82-82 10:03:007.6[facility] FmmojbjIVDEYOEEJY1778-91-64 10:03:009.4 [facility] PnvyinrAXHRRVAUIG8770-19-86 10:03:00 Test Item Value Reference Range Interpretation Comments MCH (test code = MCH) 19.2 pg 27.0-31.0 [facility] YoyvqkpCWCUPXOWAI0756-08-08 10:03:80539Uhfkjnrv HermannHEMATOLOGY 2013-10-16 10:03:0020.6[facility] WphigpnDDJDFTXACF1331-14-25 10:03:0030.5[facility] SloditjEIIOITMFBZ2165-54-61 10:03:000.1[facility] HfkmcosAZTISLKRLB9873-75-39 10:03:000.1[facility] TxfnsjwBIMKUKEVKU2689-80-12 10:03:00Slight *ABN*(10/16/13 5:03 AM)[facility] RizsjcoRBSFJFPAVG4862-18-32 10:03:00Slight (10/16/13 5:03 AM) [facility] IvtaucqPSPZJOCPYP8963-12-58 10:03:00Slight (10/16/13 5:03 AM)[facility] FcpbtwxXCWHLSQFTP4403-12-09 10:03:003+ (10/16/13 5:03 AM)[facility] [place] WTRPJDYXTK7159-62-90 10:03:000.6[facility] UquyofdIFUSFLELVI4531-44-94 10:03:003.6 [facility] RneuyoaMWBFGWTBLO2165-35-30 10:03:002.1[facility] HermannHEMATOLOGY 2013-10-16 10:03:001.8[facility] VhcbivuGKOFBCDPNA8418-76-20 10:03:001.4[facility] ErbrfsqUMGMCCTWJD7028-71-50 10:03:0032.4[facility] KvbxgtlTXORSTNLLZ5848-28-49 10:03:008.9[facility] JffodrgTWLLLXIUTS4113-40-65 10:03:00Normal (10/16/13 5:03 AM) [facility] OugkfdzLSOXNPGBWV2309-62-05 10:03:0055.5[facility] HermannCHEM PANEL 2013-10-15 08:31:004.0[facility] HermannCHEM ALUDH2487-77-33 08:31:002.2[facility]annCHEM JACOH0559-03-34 08:31:001.5[facility]annCHEM DOSKF2910-78-86 08:31:0018[facility] HermannCHEM USAXV8170-07-88 08:31:0079[facility]annCHEM IKXHM3091-57-47 08:31:003.7[facility] HermannCHEM ELSGK0657-03-87 08:31:72754 [facility]annCHEM ICHMB2669-93-75 08:31:0025[facility]annCHEM PANEL 2013-10-15 08:31:99853Zhpjkmtu HermannCHEM UPKSP1415-30-78 08:31:0037[facility]annCHEM VTDAT9160-02-13 08:31:008.7[facility]annCHEM VLDAE3689-89-29 08:31:0013.7[facility] LvnczoaBJZXPVNWPE3914-03-33 08:31:0021.0[facility] [place] JJRLJLCDDY2775-06-42 08:31:21285Udjvkvvq QzepbxvHWYLICDJRG4673-65-51 08:31:00 30.5[facility] WgezjkzDONRPXAJIL5234-26-37 08:31:009.4[facility] HermannHEMATOLOGY 2013-10-15 08:31:0063.1[facility] AumgvxaYWADVYCPXV9725-47-65 08:31:007.4[facility] SijdewtPOVZZMWYNY7197-15-68 08:31:004.10[facility] PpekazvXSOPRKUPJX3219-89-87 08:31:0025.8[facility] OmkfiqvQIJLZGBBGZ4532-25-63 08:31:007.9[facility] MPCYEJPYIJ7852-13-35 08:31:00 Test Item Value Reference Range Interpretation Comments MCH (test code = MCH) 19.2 pg 27.0-31.0 [facility] NtpkpgdGFKKGTIJVS8877-72-22 08:31:000.2[facility]annHEMATOLOGY 2013-10-15 08:31:000.2[facility] QfcequoXCWWQVKSOI5071-85-10 08:31:0062.0[facility] NgojhbxBPZEXAUXYL9538-20-12 08:31:000.0[facility] SydvptoRXPXSJMPHH0138-29-06 08:31:006.0[facility] SsbmtnbLZEITQOWEN8887-18-82 08:31:0026.0[facility] OTASSOOSQL1251-30-74 08:31:003.0[facility] OzyqbqgKMLLWQPZXI4722-86-52 08:31:003.0 [facility] GozxsybHEJDTGOMPJ9313-81-99 08:31:000.0[facility]annHEMATOLOGY 2013-10-15 08:31:001.9[facility] LortgyiVHRJZXEMFB8987-91-55 08:31:004.6[facility] LqepqkbVVUYAEPSHC9438-98-54 08:31:000.4[facility] HermannCHEM QXKPY0350-63-94 08:31:004.0[facility] HermannCHEM FLLLI7968-42-75 08:31:002.2[facility] HermannCHEM YCJMJ8331-36-65 08:31:001.5[facility] HermannCHEM FLMTT4773-75-41 08:31:0018 [facility]annCHEM HGKMW5845-25-34 08:31:0079[facility]annCHEM PANEL 2013-10-15 08:31:003.7[facility] HermannCHEM WQYUX7884-30-06 08:31:04376Wkpafdnr HermannCHEM ZGTQI8422-18-14 08:31:0025[facility]annCHEM VZKDA3212-73-34 08:31:64050Xicrywdw HermannCHEM AYRDU4310-89-09 08:31:0037[facility]annCHEM UIKKZ7616-76-26 08:31:008.7[facility] HermannCHEM ESQZZ7072-79-82 08:31:0013.7 [facility] SgxxktzEZMLLOSFSH1562-14-89 08:31:0021.0[facility] HermannHEMATOLOGY 2013-10-15 08:31:24033Kdfytdny DovmeexNUNZKRXXKA5726-03-47 08:31:0030.5[facility] NzihjpkUZKRRXEZEV9629-19-68 08:31:009.4[facility] RfsvvvnGBTAYFILCJ3711-08-33 08:31:0063.1[facility] IifepthFYGCELJYXO8001-40-49 08:31:007.4[facility] PAEEAUFAWQ8023-25-43 08:31:004.10[facility] AviggyrEHOWFALKPK9741-12-87 08:31:00 25.8[facility] MfhqrooOJJTBDMVGT0502-00-29 08:31:007.9[facility] HermannHEMATOLOGY 2013-10-15 08:31:00 Test Item Value Reference Range Interpretation Comments MCH (test code = MCH) 19.2 pg 27.0-31.0 [facility] AztomhfFNPZZQBTLM0864-22-28 08:31:000.2[facility] HermannHEMATOLOGY 2013-10-15 08:31:000.2[facility] WnccvvkGAIMIHEXOK3351-17-31 08:31:0062.0[facility] RvgdqetJRYRCRUHUE7398-20-86 08:31:000.0[facility] BcgqjfjJWDDJBTXOP4417-34-51 08:31:006.0[facility] YztnjoeDHIFRTGCNU8200-75-63 08:31:0026.0[facility] [place] OBPMFLYOSD5553-19-20 08:31:003.0[facility] SgqvbxrLASJUNYPYV0590-75-40 08:31:003.0 [facility] OqmwjsjTHYNOAVCFB1831-83-57 08:31:000.0[facility]annHEMATOLOGY 2013-10-15 08:31:001.9[facility] IqvfsgaJDFFBJEIOP4922-93-65 08:31:004.6[facility] VqgtjhuCXZDGCMUVB5010-98-16 08:31:000.4[facility] HermannCHEM TIMBY5352-30-03 08:31:004.0[facility]annCHEM KNQIS8670-40-39 08:31:002.2[facility] HermannCHEM LHEXY1734-31-89 08:31:001.5[facility]annCHEM XTMCZ1286-31-03 08:31:0018 [facility]annCHEM KVSXI2043-55-28 08:31:0079[facility]annCHEM PANEL 2013-10-15 08:31:003.7[facility] HermannCHEM VHCSU2868-55-35 08:31:55762Dprtfwem HermannCHEM TEWKI9703-03-91 08:31:0025[facility]annCHEM GHRWW5289-59-09 08:31:89433Hmblnkgj HermannCHEM IBHFW0991-38-53 08:31:0037[facility]annCHEM NKQPE2866-43-54 08:31:008.7[facility]annCHEM BVDFS6770-70-99 08:31:0013.7 [facility] UheggzbXNODPHWZWC9822-11-85 08:31:0021.0[facility]annHEMATOLOGY 2013-10-15 08:31:00009Aypzrazs KddocsjZXGNUVEZXY8045-43-57 08:31:0030.5[facility] QatldrbWIUJEMKERS0542-41-34 08:31:009.4[facility] YfwenvhSBFMTULWOK8485-37-06 08:31:0063.1[facility] KmcyjmlIEENLQHZOI9238-21-82 08:31:007.4[facility] RHIWITLJVL0846-50-79 08:31:004.10[facility] LbsfzskDSOPNTCDFP0444-89-96 08:31:00 25.8[facility] ZvewfnrCROXLIUXCC8409-03-53 08:31:007.9[facility]annHEMATOLOGY 2013-10-15 08:31:00 Test Item Value Reference Range Interpretation Comments MCH (test code = MCH) 19.2 pg 27.0-31.0 [facility] ZuqbtvwCKJIFVBAAM9416-46-95 08:31:000.2[facility]annHEMATOLOGY 2013-10-15 08:31:000.2[facility] LcmerilWVJWUMJFMO1492-80-33 08:31:0062.0[facility] HlislntYYXAXWIYEK8859-00-37 08:31:000.0[facility] OtydecdTCEAWBTUWZ3044-34-11 08:31:006.0[facility] WufeomqEHXTORNMOD1541-03-77 08:31:0026.0[facility] YLZVDSLXWM3897-69-65 08:31:003.0[facility] UtqrnsgOEWHEQAJXO0455-05-69 08:31:003.0 [facility] IqhbpdvNSUKIXGEXE6202-19-18 08:31:000.0[facility]annHEMATOLOGY 2013-10-15 08:31:001.9[facility] SpwlvdoZCHTPEBELI3976-09-07 08:31:004.6[facility] ZtqnxdxGMTJVJRYRL6133-74-62 08:31:000.4[facility] HermannCHEM VDNWX2948-41-62 08:31:004.0[facility]annCHEM AZJGW9171-39-84 08:31:002.2[facility]annCHEM BPTAW1288-41-28 08:31:001.5[facility]annCHEM DZJEJ8625-78-80 08:31:0018 [facility]annCHEM VGGZX8379-40-04 08:31:0079[facility]annCHEM PANEL 2013-10-15 08:31:003.7[facility]annCHEM MUNPU1443-83-04 08:31:25183Ktjlqinj HermannCHEM CNXZG0153-00-41 08:31:0025[facility]annCHEM WVGPR9070-86-04 08:31:33560Srxnhbug HermannCHEM EEANF4284-56-82 08:31:0037[facility]annCHEM SSNBG7499-62-01 08:31:008.7[facility]annCHEM CDKYP3130-61-25 08:31:0013.7 [facility] OjhvwccHSHZEYRGVJ4166-39-41 08:31:0021.0[facility]annHEMATOLOGY 2013-10-15 08:31:26012Dbxhvmjc AoyztpbBRGHKZSEUA7598-01-59 08:31:0030.5[facility] WbtrjaaODKQUBXTWN1548-62-02 08:31:009.4[facility] FxyfttyIKBJSDAPXP9430-34-54 08:31:0063.1[facility] RxjlxysOONRGLNTJZ9917-12-53 08:31:007.4[facility] BQWNCAOSXP0936-07-56 08:31:004.10[facility] EjpqcoqVAFYMQWPXU8997-17-01 08:31:00 25.8[facility] WypdjuxPJICMCQIVB3313-36-33 08:31:007.9[facility]annHEMATOLOGY 2013-10-15 08:31:00 Test Item Value Reference Range Interpretation Comments MCH (test code = MCH) 19.2 pg 27.0-31.0 [facility] QmybyccQGCFNCJBKA7838-42-70 08:31:000.2[facility]annHEMATOLOGY 2013-10-15 08:31:000.2[facility] IuiidgtTQTRWWUPGW9185-36-84 08:31:0062.0[facility] OuuyhbgJCVBVHJAIL5342-20-12 08:31:000.0[facility] CjtwijeLLFJFBMBXD5293-54-94 08:31:006.0[facility] WrolbvqTAPRKQJWPQ3743-16-31 08:31:0026.0[facility] PGGGTIMLIX3539-95-32 08:31:003.0[facility] NsazltxKSEFGRXQCW8022-24-95 08:31:003.0 [facility] KturtzjXMYUFTMCAC7881-80-14 08:31:000.0[facility]annHEMATOLOGY 2013-10-15 08:31:001.9[facility] EgvnbsqNLJDOCBCMJ6584-23-01 08:31:004.6[facility] WcdoweaAUVIEWWYHG6772-44-69 08:31:000.4[facility]annCHEM MCKUO4450-75-41 08:31:004.0[facility]annCHEM WKPFM7194-71-31 08:31:002.2[facility]annCHEM LFVSR5623-10-04 08:31:001.5[facility]annCHEM EZDYN1177-91-73 08:31:0018 [facility]annCHEM STBMG1867-39-16 08:31:0079[facility]annCHEM PANEL 2013-10-15 08:31:003.7[facility]annCHEM DYFGL9514-34-74 08:31:34235Twjaxdzm HermannCHEM XUERU2807-05-65 08:31:0025[facility]annCHEM UIMFR4992-17-03 08:31:56911Uufdqndd HermannCHEM CESQS3060-51-68 08:31:0037[facility]annCHEM XLGFO8342-89-62 08:31:008.7[facility]annCHEM HYJCL2847-31-97 08:31:0013.7 [facility] DrztbszOGRWWBXHGB7524-03-85 08:31:0021.0[facility]annHEMATOLOGY 2013-10-15 08:31:63148Egsokxhg PgcnxrzZSXWCRHFLZ1095-85-76 08:31:0030.5[facility] FjltpxmGUEKNEZHLM0620-97-18 08:31:009.4[facility] KcsboooRNVBOEWPKI3350-47-52 08:31:0063.1[facility] PwxqhxgQZXQDJVUDP2671-67-24 08:31:007.4[facility] KNYWFQNNUL8568-56-10 08:31:004.10[facility] YfoxdgkPVBZSQYASR7003-85-03 08:31:00 25.8[facility] FxedknwNMGHVDVGHS9160-43-44 08:31:007.9[facility]annHEMATOLOGY 2013-10-15 08:31:00 Test Item Value Reference Range Interpretation Comments MCH (test code = MCH) 19.2 pg 27.0-31.0 [facility] ZveuranSXUJEBFCWM1021-08-91 08:31:000.2[facility]annHEMATOLOGY 2013-10-15 08:31:000.2[facility] AsqerxzAMMKGLNPEY6479-38-47 08:31:0062.0[facility] WjxqgxhGEJEWHJMGC6345-16-52 08:31:000.0[facility] DpsuigbREPQHLYVGN4986-65-01 08:31:006.0[facility] WgsftnqUORTFNHJZL8000-56-07 08:31:0026.0[facility] ZKHVYWWRWV5649-45-11 08:31:003.0[facility] JhlgvpeUCHMBTGDTT2196-96-10 08:31:003.0 [facility] WapsjxnBRLJDXIYOL2709-93-29 08:31:000.0[facility]annHEMATOLOGY 2013-10-15 08:31:001.9[facility] BfulkkeUSDJGHVPCS9133-30-38 08:31:004.6[facility] MsxphkhKAUVTCLEYE5003-42-99 08:31:000.4[facility] HermannCHEM AOYDF5000-81-52 08:31:004.0[facility]annCHEM EFBBM5689-26-08 08:31:002.2[facility] HermannCHEM NYIKS5095-62-99 08:31:001.5[facility]annCHEM ZDCXH3599-16-33 08:31:0018 [facility]annCHEM TXWXH4546-24-18 08:31:0079[facility]annCHEM PANEL 2013-10-15 08:31:003.7[facility]annCHEM TXVVJ0276-10-25 08:31:97192Eramqrmz HermannCHEM CWBUZ0523-37-16 08:31:0025[facility]annCHEM EOTFI3907-69-61 08:31:76683Uvhfmeoe HermannCHEM ATLHY8789-08-61 08:31:0037[facility]annCHEM XREMI5936-18-47 08:31:008.7[facility]annCHEM ZTCNP4867-84-20 08:31:0013.7 [facility] VijtqtxDANLRPPPGF9812-04-54 08:31:0021.0[facility]annHEMATOLOGY 2013-10-15 08:31:70152Xmqmenlp XdcedfrFVAWYVQMTM2996-29-68 08:31:0030.5[facility] AjzquimHCRYMEBNKZ7524-82-50 08:31:009.4[facility] MycpfepMNXAHCNUAJ6581-00-65 08:31:0063.1[facility] AurfebnHZIVLAZJZU1333-20-78 08:31:007.4[facility] JLBBCKYQVH0501-25-05 08:31:004.10[facility] LhnkptuUZYSOCGUEE6674-86-04 08:31:00 25.8[facility] TwiyhgpPUKABHGAHV8281-77-79 08:31:007.9[facility]annHEMATOLOGY 2013-10-15 08:31:00 Test Item Value Reference Range Interpretation Comments MCH (test code = MCH) 19.2 pg 27.0-31.0 [facility] QqslvbkOJOVVCQWMM9125-73-19 08:31:000.2[facility]annHEMATOLOGY 2013-10-15 08:31:000.2[facility] AtvuhqtIBOWBFIVNA5764-66-03 08:31:0062.0[facility] ZtrkmpoIGZGUFFHUS5727-85-85 08:31:000.0[facility] PhfmnctPVJIGUPQOB6560-74-29 08:31:006.0[facility] HngqipqDXDNPJUNTW5011-18-29 08:31:0026.0[facility] JREBYJWUFA3511-90-47 08:31:003.0[facility] KotcqxvTYBQGTWEDX4072-04-10 08:31:003.0 [facility] LdasflaXVWMXAQFLT4458-84-12 08:31:000.0[facility]annHEMATOLOGY 2013-10-15 08:31:001.9[facility] YgrbzxbPGODYIWQME8357-94-82 08:31:004.6[facility] FslsyofRYHYKURWIO5250-88-43 08:31:000.4[facility] HermannCHEM GZBSA9062-65-54 08:31:004.0[facility]annCHEM DHBNN9447-02-52 08:31:002.2[facility]annCHEM BGGTW9827-22-73 08:31:001.5[facility]annCHEM CDJPK6308-21-16 08:31:0018 [facility]annCHEM PQXRB0439-68-75 08:31:0079[facility]annCHEM PANEL 2013-10-15 08:31:003.7[facility] HermannCHEM QRERW9241-64-87 08:31:24994Nqxrhwzv HermannCHEM JJLFN2455-84-67 08:31:0025[facility]annCHEM VTYOT4186-27-61 08:31:24408Fpqvecux HermannCHEM HOLNR5524-25-30 08:31:0037[facility]annCHEM XNVHN8956-78-42 08:31:008.7[facility]annCHEM BIYLE4921-34-08 08:31:0013.7 [facility] AyomhetBBDLVDCIAX6853-77-96 08:31:0021.0[facility]annHEMATOLOGY 2013-10-15 08:31:03133Zaedzkgt KcarnhjAPGUPUFICH8418-45-77 08:31:0030.5[facility] UwkwgwbFBOTRDJQTG0764-90-17 08:31:009.4[facility] QvsuogcDKUCTGLKYP6498-72-99 08:31:0063.1[facility] NfytkohEXFJFTKKIA4709-84-11 08:31:007.4[facility] OYFFTEMZHJ2553-91-48 08:31:004.10[facility] OvayupxARJCKQSZCU6986-82-42 08:31:00 25.8[facility] KbqyvvtEDSXHKNMYK1672-73-09 08:31:007.9[facility]annHEMATOLOGY 2013-10-15 08:31:00 Test Item Value Reference Range Interpretation Comments MCH (test code = MCH) 19.2 pg 27.0-31.0 [facility] UnbblmqAFBYFYIAEZ4467-16-97 08:31:000.2[facility]annHEMATOLOGY 2013-10-15 08:31:000.2[facility] UvemllgLHTIWWRTNP8788-00-13 08:31:0062.0[facility] EqpdtplVTUGJHADTI6954-47-86 08:31:000.0[facility] VdeqymrVCTJVNWJYR0739-02-86 08:31:006.0[facility] FxhmkyzPWMXZKDDSL7889-88-05 08:31:0026.0[facility] KMOVHNAXUR4116-08-99 08:31:003.0[facility] YnstvjxYUDJHTZILE6635-29-92 08:31:003.0 [facility] HgasvnbDSABMMUKQJ6678-16-33 08:31:000.0[facility]annHEMATOLOGY 2013-10-15 08:31:001.9[facility] WrkobliFJYMTACYFX1769-69-53 08:31:004.6[facility] GptyxqjEXIDMRNJCK5341-11-01 08:31:000.4[facility] HermannCHEM MVMOI7856-39-21 08:31:004.0[facility]annCHEM QFLFI4401-85-88 08:31:002.2[facility]annCHEM VVGBM0191-96-17 08:31:001.5[facility]annCHEM IDLIC3325-14-33 08:31:0018 [facility]annCHEM GOYJU7947-82-01 08:31:0079[facility]annCHEM PANEL 2013-10-15 08:31:003.7[facility] HermannCHEM RHLGR6051-91-27 08:31:76279Ocpnypoq HermannCHEM VAVSX5395-78-29 08:31:0025[facility]annCHEM EIXXO7320-32-49 08:31:33235Vqvunvoo HermannCHEM KGTHI5274-55-15 08:31:0037[facility]annCHEM VMGEU6964-92-67 08:31:008.7[facility]annCHEM YUUOM7864-91-21 08:31:0013.7 [facility] QpisaebQFGNAEZGRS8393-30-95 08:31:0021.0[facility]annHEMATOLOGY 2013-10-15 08:31:15254Yyyagjxw PrfgkffZPTHNFWFUG0334-20-72 08:31:0030.5[facility] QaijsygLQLVWGAYCC7090-61-98 08:31:009.4[facility] NvqzbkgIMMTPSTGAC1057-11-28 08:31:0063.1[facility] PwqbjjfQLGTJXDSGZ5358-76-21 08:31:007.4[facility] FGDABTMYMZ1156-10-42 08:31:004.10[facility] HhnrnciPTADJZDXUS2867-61-31 08:31:00 25.8[facility] SrtevwxEOXUBSBEWO7986-85-62 08:31:007.9[facility]annHEMATOLOGY 2013-10-15 08:31:00 Test Item Value Reference Range Interpretation Comments MCH (test code = MCH) 19.2 pg 27.0-31.0 [facility] MntuxknLKSTQOROAR8211-57-92 08:31:000.2[facility]annHEMATOLOGY 2013-10-15 08:31:000.2[facility] RnhjpygDUQYXTLLXA2936-71-15 08:31:0062.0[facility] VfabiteVXMVIECPXZ3530-87-39 08:31:000.0[facility] PcdjfmpLBXTPNPVPH3163-05-45 08:31:006.0[facility] GjjckmkKYGOTTAHMI5484-45-92 08:31:0026.0[facility] ZFJQUIKETI8970-07-62 08:31:003.0[facility] OncwpolTYREVUHYAJ7109-98-13 08:31:003.0 [facility] BoimfsyNDJRHLLMOB8649-12-99 08:31:000.0[facility]annHEMATOLOGY 2013-10-15 08:31:001.9[facility] SgqbeukNNBFEUUNRT3619-28-45 08:31:004.6[facility] HfhniquQYPNQSSGPV5888-01-17 08:31:000.4[facility] HermannCHEM PHRTQ2972-47-45 08:31:004.0[facility] HermannCHEM AZDOG0262-47-97 08:31:002.2[facility]annCHEM KFXOB0355-65-46 08:31:001.5[facility]annCHEM XKOWA0046-85-32 08:31:0018 [facility]annCHEM DCJBR5845-65-27 08:31:0079[facility]annCHEM PANEL 2013-10-15 08:31:003.7[facility]annCHEM ICDNQ3218-26-51 08:31:27960Hmlpcblh [facility]annCHEM USKKN1806-60-13 08:31:0025[facility]annCHEM GSFBQ2945-32-36 08:31:30393Ceuxfakb HermannCHEM JZIQS8434-66-08 08:31:0037[facility]annCHEM BRDFG6428-15-78 08:31:008.7[facility]annCHEM XEXRD0481-96-93 08:31:0013.7 [facility] JuddpgcPMWWZECYVI1345-55-59 08:31:0021.0[facility]annHEMATOLOGY 2013-10-15 08:31:00838Cdcmbhoq YksyewnYEZSXMLZGI5850-65-85 08:31:0030.5[facility] BotexaaECHNNXVESV3580-14-09 08:31:009.4[facility] BgkhvktZWYRRTMQMP1153-87-84 08:31:0063.1[facility] UfkmhenEQQNRTNOKC0113-66-49 08:31:007.4[facility] GPLNCPAGDE3174-34-63 08:31:004.10[facility] XoawtypHDIHLEEXSC7787-09-19 08:31:00 25.8[facility] IjdrrzkNPEQMCBGHK6581-17-71 08:31:007.9[facility]annHEMATOLOGY 2013-10-15 08:31:00 Test Item Value Reference Range Interpretation Comments MCH (test code = MCH) 19.2 pg 27.0-31.0 [facility] QuhwytkRQEEJVOCXT6353-33-84 08:31:000.2[facility]annHEMATOLOGY 2013-10-15 08:31:000.2[facility] UbbcticGNXVXYIRNO5806-00-70 08:31:0062.0[facility] LxieidjIDNSPUFTXI7593-28-98 08:31:000.0[facility] IyfhameYJAVNMETSB4645-91-52 08:31:006.0[facility] PpfhnjdXCFZHBXUEM7889-12-73 08:31:0026.0[facility] VPVGMHFEXW0921-99-91 08:31:003.0[facility] NcmitohWIJYZWGYKX6906-45-96 08:31:003.0 [facility] LlsmezxWEDFZVJOIK5737-33-31 08:31:000.0[facility]annHEMATOLOGY 2013-10-15 08:31:001.9[facility] FlzoosgWURCIFWIJB1560-77-89 08:31:004.6[facility] YzycbptRTFOEEVRAB3482-66-91 08:31:000.4[facility]annCHEM BUNQC8537-45-25 08:31:004.0[facility]annCHEM TXQQJ8909-95-96 08:31:002.2[facility]annCHEM WNSQF6376-95-86 08:31:001.5[facility]annCHEM SLJBR6682-69-38 08:31:0018 [facility]annCHEM RTVUW2276-48-50 08:31:0079[facility]annCHEM PANEL 2013-10-15 08:31:003.7[facility]annCHEM ZMOCS2442-01-06 08:31:39024Tnffltvd HermannCHEM UOBLE2474-95-01 08:31:0025[facility]annCHEM VYBSQ3131-21-72 08:31:92299Tgcylfaq [facility]annCHE[facility] IHEIS3607-36-14 08:31:0037[facility]annCHEM JTPFO2815-08-52 08:31:008.7[facility]annCHEM OOWMX9117-91-24 08:31:0013.7 [facility] DhjcrveWKNBKBNHBV3714-25-35 08:31:0021.0[facility]annHEMATOLOGY 2013-10-15 08:31:79936Nhochnib XtjiplrSKTZMBOMCW3324-40-08 08:31:0030.5[facility] ObsddniFTNEGJIVJT2214-18-65 08:31:009.4[facility] TawmnanQYNDIIWUER6362-84-77 08:31:0063.1[facility] IuymehnXYBYRNQWVK8530-12-86 08:31:007.4[facility] TWZNNISOSY7920-11-98 08:31:004.10[facility] TvzhvvgBOUNQYHOTM0461-72-95 08:31:00 25.8[facility] MuyupkxDKZGJWDWXY5531-05-38 08:31:007.9[facility]annHEMATOLOGY 2013-10-15 08:31:00 Test Item Value Reference Range Interpretation Comments MCH (test code = MCH) 19.2 pg 27.0-31.0 [facility] JzqqvmmTRJSIUBXSV0472-14-45 08:31:000.2[facility]annHEMATOLOGY 2013-10-15 08:31:000.2[facility] EbrverrOGIHZDGIVP7959-42-54 08:31:0062.0[facility] IargozmDJSAFCLAYG2614-17-99 08:31:000.0[facility] RdkzpncFKCJJKCHEL4333-38-66 08:31:006.0[facility] KyoqyvzPTEXBXCMAU5457-71-97 08:31:0026.0[facility] JOXECPMWVV3104-14-94 08:31:003.0[facility] XyvuubbXEIQIKNKXW8727-97-22 08:31:003.0 [facility] IwrfgtxGNZTUQEBJC4059-64-02 08:31:000.0[facility]annHEMATOLOGY 2013-10-15 08:31:001.9[facility] TjixamjRPBQTCYKGF9099-56-79 08:31:004.6[facility] ZzhyohqOPCPQUIDTQ6260-25-47 08:31:000.4[facility]annURINE AND ANPSV2838-89-62 23:59:21None Seen 11(10/14/13 6:59 PM)[facility] VEQQP3530-11-56 23:59:21None Seen 11(10/14/13 6:59 PM)[facility] AND SXRHN5553-83-24 23:59:21None Seen 11(10/14/13 6:59 PM)[facility] NKHPG3503-23-57 23:59:21None Seen 11(10/14/13 6:59 PM)[facility] THADP2373-90-67 23:59:21None Seen 11(10/14/13 6:59 PM)[facility] KQIPG3376-55-43 23:59:21None Seen 11(10/14/13 6:59 PM)[facility] UTYIJ9386-18-33 23:59:21None Seen 11(10/14/13 6:59 PM)[facility] CCXQP1550-30-43 23:59:21None Seen 11(10/14/13 6:59 PM)[facility] TOVCY2471-36-99 23:59:21None Seen 11(10/14/13 6:59 PM)[facility] AND WTEHZ5494-33-71 23:59:21None Seen 11(10/14/13 6:59 PM)[facility]annMOLECULAR DIAGNOSTIC 2013-10-14 23:59:17Negative 16(10/14/13 6:59 PM)[facility]annMOLECULAR RJUQNQXNMI7096-87-97 23:59:17Negative 16(10/14/13 6:59 PM)[facility] MOLECULAR KFWBUTRKZG6865-62-17 23:59:17Negative 16(10/14/13 6:59 PM)[facility]annMOLECULAR MIOUDVXFFY9831-04-88 23:59:17Negative 16(10/14/13 6:59 PM) [facility]annMOLECULAR NKDWXADJSL1038-77-60 23:59:17Negative 16(10/14/13 6:59 PM)[facility]annMOLECULAR UWKWHDDMVX2066-90-07 23:59:17Negative 16(7/25/14 6:59 PM)[facility]annMOLECULAR FWNCHJMERF9203-38-31 23:59:17Negative 16(10/14/13 6:59 PM)[facility]annMOLECULAR MZOEXOKDUY4384-22-64 23:59:17 Negative 16(10/14/13 6:59 PM)[facility]annMOLECULAR DABCMKZRLA2286-66-88 23:59:17Negative 16(10/14/13 6:59 PM)[facility]annMOLECULAR DIAGNOSTIC 2013-10-14 23:59:17Negative 16(10/14/13 6:59 PM)[facility]annHEMATOLOGY 2013-10-14 18:31:297.8[facility] GhnupkoBLDNALFFZF0608-61-87 18:31:2925.8[facility] VonqszbVKSKZJAPHV2975-85-11 18:31:297.8[facility] LyzxcdnFRGNGHQNDU1174-03-95 18:31:2925.8[facility] NzvshkeHVMCQURLQI1734-31-74 18:31:297.8[facility] VLGYZEBWEL6324-00-85 18:31:2925.8[facility] IigqvdmZOPOGKOSIB1478-11-95 18:31:29 7.8[facility] LzgfujbQHIXBEWVMU1552-16-03 18:31:2925.8[facility]annHEMATOLOGY 2013-10-14 18:31:297.8[facility] QesqjliFMVUJZZYLL6351-61-46 18:31:2925.8[facility] MxewlcsLQLOPFWPHN2286-68-97 18:31:297.8[facility] BmknltcAIGXEIQCZF5346-59-25 18:31:2925.8[facility] RjyxvydFDGRRSJGQP5846-81-09 18:31:297.8[facility] NESNAPUHXJ0036-66-88 18:31:2925.8[facility] ZjallzgTAAVVCPJNJ7258-72-88 18:31:29 7.8[facility] JtzphtxKKCOAPFVCQ1827-14-04 18:31:2925.8[facility]annHEMATOLOGY 2013-10-14 18:31:297.8[facility] DnnfcfqYURNKRTPSW3256-76-74 18:31:2925.8[facility] ZmmrusrAIUMYPDKIE4375-92-42 18:31:297.8[facility] ZljmbqiLXIYTCJWVI0550-48-50 18:31:2925.8[facility] HermannCHEM AHEHI9207-14-53 06:46:004.0[facility]annCHEM HGBSR8544-81-72 06:46:0014[facility]annCHEM ERIJC7674-24-74 06:46:001.3 [facility]annCHEM CTASW5710-10-98 06:46:0086[facility]annCHEM PANEL 2013-10-14 06:46:008.4[facility]annCHEM QPUAV2073-66-97 06:46:0015.0[facility]annCHEM WNPXU3065-78-63 06:46:0024[facility]annCHEM LZAUF1482-62-55 06:46:68323Riykkchu HermannCHEM BMSLQ2788-45-86 06:46:43940Brbtjkil HermannCHEM LNEXN9220-21-74 06:46:0058[facility] TukggfiIDPRDMKVMR0942-29-38 06:46:0059.9 [facility] BwtlsvgYUWCKJMQXC8441-26-99 06:46:0030.8[facility]annHEMATOLOGY 2013-10-14 06:46:004.4[facility] NuvpzjzKRZCDIJDTO2933-14-84 06:46:001.1[facility] JqmbybpDUYZTCLWOW1822-18-00 06:46:003+ *NA*(10/14/13 1:46 AM)[facility] QARSSBWRXS3834-39-64 06:46:000.1[facility] YbgekstYQDPOGASSQ6424-59-92 06:46:000.6 [facility] XqolkqxOPDJROEAKM7736-85-44 06:46:000.4[facility]annHEMATOLOGY 2013-10-14 06:46:002.3[facility] PcdulrxYXPCDWQDRD8956-90-07 06:46:007.8[facility] CrrkzegQLCVQNFOQZ5058-50-94 06:46:31634Pxjsywoz DgqndhnDNJCDRJTKI4646-05-00 06:46:0019.5[facility] FwxrkjkSYGWGLBWWW1222-40-12 06:46:007.3[facility] IZHLTHRECB2773-03-16 06:46:003.89[facility] ZzihzecSSWTURJFNP7126-58-43 06:46:00 62.5[facility] RwopolmVRLEARSTVD8653-74-51 06:46:00 Test Item Value Reference Range Interpretation Comments MCH (test code = MCH) 19.2 pg 27.0-31.0 [facility] ZmvrbiiHESAEZDICY8045-91-56 06:46:0030.8[facility]annHEMATOLOGY 2013-10-14 06:46:009.2[facility] HermannCHEM VQPVA1186-10-27 06:46:001.8[facility]annCHEM WFORW4469-03-93 06:46:003.2[facility]annCHEM ASNWD2539-70-39 06:46:0044[facility]annCHEM LWEQX0391-59-40 06:46:94699Khwtrdrk HermannCHEM LQZDY2178-76-29 06:46:004.0[facility]annCHEM YRERA1665-36-42 06:46:0014 [facility]annCHEM DLJET1906-57-43 06:46:001.3[facility]annCHEM PANEL 2013-10-14 06:46:0086[facility]annCHEM AHKRI0030-66-86 06:46:008.4[facility]annCHEM BSCYU6292-05-83 06:46:0015.0[facility]annCHEM KKZDL7623-80-00 06:46:0024[facility]annCHEM JKRQM5722-95-31 06:46:10796Xaisxhly HermannCHEM YQGZF9193-92-68 06:46:82652Icjhnuek HermannCHEM PTJXE5417-54-54 06:46:0058 [facility] VifgrpeMKTCVRCXSC1900-81-11 06:46:0059.9[facility]annHEMATOLOGY 2013-10-14 06:46:0030.8[facility] ApxzbluOCKHNUHQGR5309-17-18 06:46:004.4[facility] JquihdhBZBUOINZQM2171-69-20 06:46:001.1[facility] PfilsdtFKVELZZNRY7039-86-22 06:46:003+ *NA*(10/14/13 1:46 AM)[facility] LuyxqofGXHLUGKDKM9401-47-52 06:46:000.1 [facility] PrjcgupKDBWYFRGNI1563-94-05 06:46:000.6[facility]annHEMATOLOGY 2013-10-14 06:46:000.4[facility] VmpxvnsTGKOBLKQQF9995-58-45 06:46:002.3[facility] XnekxogLVFSWODRGS5840-47-13 06:46:007.8[facility] LyweebeAZOLPYSYDG1056-48-70 06:46:63775Gjyaqmkd EpccrdzRHQWELCRWR8904-14-68 06:46:0019.5[facility] WZLXJPWYSB6771-23-67 06:46:007.3[facility] YgkjkrpCLMKOIFQSX1200-71-77 06:46:00 3.89[facility] WaixolbIULRGXYBWP9202-71-97 06:46:0062.5[facility]annHEMATOLOGY 2013-10-14 06:46:00 Test Item Value Reference Range Interpretation Comments MCH (test code = MCH) 19.2 pg 27.0-31.0 [facility] CyxwckgGPGLTQXZEN7775-33-02 06:46:0030.8[facility]annHEMATOLOGY 2013-10-14 06:46:009.2[facility] HermannCHEM WCHGA5883-20-60 06:46:001.8[facility]annCHEM JRMZR3820-17-25 06:46:003.2[facility]annCHEM QKSGU6384-14-87 06:46:0044[facility]annCHEM DOVYA6112-67-56 06:46:99775Bxlyqtll HermannCHEM BMIXZ3408-64-89 06:46:004.0[facility]annCHEM TRWKK0398-53-30 06:46:0014 [facility]annCHEM IDMPQ2555-40-94 06:46:001.3[facility]annCHEM PANEL 2013-10-14 06:46:0086[facility]annCHEM CSQJE5770-41-87 06:46:008.4[facility]annCHEM FUHNJ6848-71-94 06:46:0015.0[facility]annCHEM XMVXH6411-12-31 06:46:0024[facility]annCHEM FRGQO6908-63-03 06:46:05097Pdpplpev HermannCHEM VFOIE3817-41-36 06:46:97292Zarbwamy HermannCHEM VVXZB0333-76-83 06:46:0058 [facility] NmfkyjvPAEOAYRPKY2065-91-53 06:46:0059.9[facility]annHEMATOLOGY 2013-10-14 06:46:0030.8[facility] XslnuopLVCPWCLCTZ6873-38-33 06:46:004.4[facility] RxzejykQRBPDUKCJZ2977-30-37 06:46:001.1[facility] UqeyupyHOCQXGNYXX2412-14-87 06:46:003+ *NA*(10/14/13 1:46 AM)[facility] XzooeyxPURPKSERHL1019-30-45 06:46:000.1 [facility] MetgajaALSAAZKBOC4574-77-75 06:46:000.6[facility]annHEMATOLOGY 2013-10-14 06:46:000.4[facility] ZjsdackKYRFFESGNC5421-72-59 06:46:002.3[facility] YaexrbtFGHLWXPFUJ9846-33-95 06:46:007.8[facility] HofwzduARKSPXWJRA6412-34-27 06:46:41956Vyevmkvm DcjpmcmZBTMIZJJVK5165-51-66 06:46:0019.5[facility] RGEMFUBTVR1446-64-90 06:46:007.3[facility] UwhrnpxIPGYXTIAQM4920-96-35 06:46:00 3.89[facility] OzltbijMJQZLAMUHE7634-78-74 06:46:0062.5[facility]annHEMATOLOGY 2013-10-14 06:46:00 Test Item Value Reference Range Interpretation Comments MCH (test code = MCH) 19.2 pg 27.0-31.0 [facility] FszmuknKAITAQOGYP6372-50-08 06:46:0030.8[facility]annHEMATOLOGY 2013-10-14 06:46:009.2[facility] HermannCHEM RTRZF2464-87-34 06:46:001.8[facility] HermannCHEM XCXZI7393-03-72 06:46:003.2[facility] HermannCHEM RETAW4860-22-40 06:46:0044[facility] HermannCHEM LOFBV6288-57-43 06:46:20358Clzumdzs HermannCHEM UUGUP5831-22-70 06:46:004.0[facility] HermannCHEM RHDRK6972-94-84 06:46:0014 [facility]annCHEM EILFD5913-63-00 06:46:001.3[facility] HermannCHEM PANEL 2013-10-14 06:46:0086[facility] HermannCHEM HYHCD4695-72-78 06:46:008.4[facility] HermannCHEM NZWUK7649-25-61 06:46:0015.0[facility]annCHEM RCOGY4501-01-25 06:46:0024[facility]annCHEM TBXST4415-27-88 06:46:95556Tlodotze HermannCHEM JMOVM5817-75-16 06:46:11410Fdkienmk HermannCHEM WGRTD7556-57-09 06:46:0058 [facility] AwfeoecNVZEUETTSC6393-65-81 06:46:0059.9[facility]annHEMATOLOGY 2013-10-14 06:46:0030.8[facility] JczkolcXKBIBZQTHJ6575-00-67 06:46:004.4[facility] RuiircaJXBUTARLQM2031-75-00 06:46:001.1[facility] AnpezfgIDJTGBGMOX0985-11-07 06:46:003+ *NA*(10/14/13 1:46 AM)[facility] TqbduibZZXWHLGBOH6299-04-08 06:46:000.1 [facility] YvgcswqUEBMMDDGNR6509-84-93 06:46:000.6[facility]annHEMATOLOGY 2013-10-14 06:46:000.4[facility] GwffydhWJNMVDZUUE4774-01-37 06:46:002.3[facility] OaiepyhYIYIHTTGCI2491-96-55 06:46:007.8[facility] EfsyolaFQQZIUHDTK8663-69-08 06:46:62143Xcghxfsf CllehetQBCLMHOZAN8899-80-65 06:46:0019.5[facility] OEQUGAYDXV0098-43-56 06:46:007.3[facility] NxrzbwiSVKABKPVWA2952-42-03 06:46:00 3.89[facility] UqimvcqALOGARKFHW7787-03-20 06:46:0062.5[facility]annHEMATOLOGY 2013-10-14 06:46:00 Test Item Value Reference Range Interpretation Comments MCH (test code = MCH) 19.2 pg 27.0-31.0 [facility] LjxjfnkJJBYBSGPVQ2648-21-95 06:46:0030.8[facility]annHEMATOLOGY 2013-10-14 06:46:009.2[facility] HermannCHEM EFDTS2558-98-84 06:46:001.8[facility] HermannCHEM RYMDR5900-03-78 06:46:003.2[facility] HermannCHEM XUTBB3840-76-80 06:46:0044[facility] HermannCHEM SZXAA5798-70-20 06:46:25937Yqawoeph HermannCHEM KTCKZ9932-15-45 06:46:004.0[facility] HermannCHEM NALCU0999-77-34 06:46:0014 [facility]annCHEM PDABF4858-71-78 06:46:001.3[facility] HermannCHEM PANEL 2013-10-14 06:46:0086[facility] HermannCHEM LKOCF4638-29-18 06:46:008.4[facility] HermannCHEM YUXIX0310-10-24 06:46:0015.0[facility] HermannCHEM XRFCM8852-37-70 06:46:0024[facility]annCHEM AEPKO6809-85-79 06:46:97791Mokrbdwk HermannCHEM UAFDI5145-04-77 06:46:82127Oqmybyrg HermannCHEM MCNBM9952-00-75 06:46:0058 [facility] JpverpiPYIHPINQRC3029-76-84 06:46:0059.9[facility]annHEMATOLOGY 2013-10-14 06:46:0030.8[facility] RhyaknmEBWFSOOFYR3145-64-81 06:46:004.4[facility] AgegehpIHJEYEZFDG9436-14-52 06:46:001.1[facility] DrkhbxwCQNYTONEZF6283-70-34 06:46:003+ *NA*(10/14/13 1:46 AM)[facility] VazgstlXBGBIRJZGQ6128-33-51 06:46:000.1 [facility] WphxgkyXKOZFWYRIE0837-93-93 06:46:000.6[facility]annHEMATOLOGY 2013-10-14 06:46:000.4[facility] UolbkbhCZGLMTSPGB5137-97-52 06:46:002.3[facility] IuxraxoGNQQCJXMMA6163-04-54 06:46:007.8[facility] AurhupvVTZHYXHFDH3467-10-11 06:46:52331Ksvgvrlv QuabhqfXQLSBPWEHZ1743-58-68 06:46:0019.5[facility] XRANJJJUFV7130-89-35 06:46:007.3[facility] ZyeakytMRCDETHJQD1888-85-67 06:46:00 3.89[facility] GrsuvvuNNVDJLWISX9616-96-41 06:46:0062.5[facility]annHEMATOLOGY 2013-10-14 06:46:00 Test Item Value Reference Range Interpretation Comments MCH (test code = MCH) 19.2 pg 27.0-31.0 [facility] TjxjsmnTGWSBYJLWJ9334-77-44 06:46:0030.8[facility]annHEMATOLOGY 2013-10-14 06:46:009.2[facility]annCHEM AMGSM3566-39-87 06:46:001.8[facility]annCHEM ACNFD3693-05-06 06:46:003.2[facility]annCHEM PYXXN3874-93-36 06:46:0044[facility]annCHEM HWPEK8269-95-58 06:46:69782Fnmqqjpe HermannCHEM YWBAN4423-45-24 06:46:004.0[facility]annCHEM UMLAG0376-08-25 06:46:0014 [facility]CHE[facility] XHTQE8575-65-20 06:46:001.3[facility]annCHEM PANEL 2013-10-14 06:46:0086[facility]annCHEM KXVSS4790-06-97 06:46:008.4[facility]annCHEM QJATN3508-40-85 06:46:0015.0[facility]annCHEM WDBBB9889-83-92 06:46:0024[facility]annCHEM DGPAW0093-70-77 06:46:91138Xolqcwty HermannCHEM CCWTA8131-23-05 06:46:13712Pflpkuoa HermannCHEM ZBKIF4698-33-47 06:46:0058 [facility] UpksbqtSBHXFQGWVP3713-29-51 06:46:0059.9[facility] HermannHEMATOLOGY 2013-10-14 06:46:0030.8[facility] KczmwwsFMZWHULDLQ3419-38-96 06:46:004.4[facility] TuevgxvYVIJCMNVWN0596-02-01 06:46:001.1[facility] PluuepnPZDTVHUGFU8852-62-79 06:46:003+ *NA*(10/14/13 1:46 AM)[facility] UhysngkEAWLPGTVLP8935-60-29 06:46:000.1 [facility] JajmkrsNIRAPMJNXJ5489-48-16 06:46:000.6[facility]annHEMATOLOGY 2013-10-14 06:46:000.4[facility] JtzcjjiASISPKMYBC0881-72-57 06:46:002.3[facility] BrpklbtGIQNDEXABL7681-12-75 06:46:007.8[facility] LuiqtsbXETWJUQQTS9449-77-05 06:46:13624Cacdrmrs SlbcbxwHCGNUCILGH7588-51-45 06:46:0019.5[facility] JKTHQSTRIV3416-33-05 06:46:007.3[facility] QcodoflJSZLMWSUEH2675-38-16 06:46:00 3.89[facility] WlzbyieEISYFMRWJS0097-18-41 06:46:0062.5[facility]annHEMATOLOGY 2013-10-14 06:46:00 Test Item Value Reference Range Interpretation Comments MCH (test code = MCH) 19.2 pg 27.0-31.0 [facility] PwwhburWLFVXZCTLV7515-97-68 06:46:0030.8[facility]annHEMATOLOGY 2013-10-14 06:46:009.2[facility]annCHEM VBMNT4583-21-73 06:46:001.8[facility]annCHEM SASWJ1362-75-44 06:46:003.2[facility]annCHEM CFZSI8410-10-56 06:46:0044[facility]annCHE[facility] IZHVI8515-68-14 06:46:23659Jfkpdqch HermannCHEM JILBV1016-80-54 06:46:004.0[facility]annCHEM MZGQC2738-31-09 06:46:0014 [facility]annCHE[facility] HEXRA4475-54-19 06:46:001.3[facility]annCHEM PANEL 2013-10-14 06:46:0086[facility]annCHEM AHLSB5558-72-53 06:46:008.4[facility]annCHEM RJLSX0438-01-11 06:46:0015.0[facility]annCHEM YEEJZ2277-11-50 06:46:0024[facility]annCHEM RECDI9725-34-71 06:46:51493Ogbdyatg HermannCHEM JOORH0376-85-23 06:46:79698Qgoczzym HermannCHEM MQFNX8345-86-48 06:46:0058 [facility] XbclbqfITJDVMTMKW3354-30-69 06:46:0059.9[facility]annHEMATOLOGY 2013-10-14 06:46:0030.8[facility] UweffouRGDMYXTUMT2511-82-49 06:46:004.4[facility] YtrpyfzFUCDPOGOGI3758-57-08 06:46:001.1[facility] FbzdljdQBPDVXHCVO1665-29-92 06:46:003+ *NA*(10/14/13 1:46 AM)[facility] WpxlupsKFASRWRRGX2789-44-35 06:46:000.1 [facility] RyyeitqNXXTXEYPKB5244-57-80 06:46:000.6[facility]annHEMATOLOGY 2013-10-14 06:46:000.4[facility] CoruptoOUNQFBPJCU6017-58-77 06:46:002.3[facility] FtvckkoAVATPHBBBK7389-87-08 06:46:007.8[facility] TvwzdsuCNNCTUOWYA7504-12-81 06:46:06509Trhujxzh OmacrsgADEMXEOCNY1692-13-85 06:46:0019.5[facility] JDKPMOKSMV6045-19-02 06:46:007.3[facility] QluokxwMPRTURUWKK4628-15-65 06:46:00 3.89[facility] MmhgiyjXXWXDODFKC9352-83-54 06:46:0062.5[facility]annHEMATOLOGY 2013-10-14 06:46:00 Test Item Value Reference Range Interpretation Comments MCH (test code = MCH) 19.2 pg 27.0-31.0 [facility] CqgaypeMGXZQHDUUD0337-58-70 06:46:0030.8[facility]annHEMATOLOGY 2013-10-14 06:46:009.2[facility]annCHEM WVRRX3588-32-43 06:46:001.8[facility]annCHEM QUWYP8983-22-24 06:46:003.2[facility]annCHEM WCUJF9509-29-72 06:46:0044[facility]annCHEM MFYIL5960-23-32 06:46:07684Tvwnnqjk HermannCHEM QEUUY8830-83-49 06:46:004.0[facility]annCHEM XCJRE1494-38-56 06:46:0014 [facility]annCHE[facility] HLYJY5350-20-30 06:46:001.3[facility]annCHEM PANEL 2013-10-14 06:46:0086[facility]annCHEM WYFBM4986-96-01 06:46:008.4[facility]annCHEM SXVWY7861-05-67 06:46:0015.0[facility]annCHEM TDFLN1448-19-44 06:46:0024[facility]annCHEM RPUQR5184-63-90 06:46:05310Nllnbdkc HermannCHEM EZNZN7529-01-92 06:46:92985Kaahqxvm HermannCHEM KORVR0313-55-90 06:46:0058 [facility] BmjkpedMKDGDXWWNT9710-97-47 06:46:0059.9[facility]annHEMATOLOGY 2013-10-14 06:46:0030.8[facility] LdjkjfsRHAAMYSIFM8285-44-10 06:46:004.4[facility] OijywcwNYZXAONTGD4003-24-36 06:46:001.1[facility] FfadaeiAMBIMIWGXZ4787-16-80 06:46:003+ *NA*(10/14/13 1:46 AM)[facility] KyrqpizGVPMKJOMDU0899-83-63 06:46:000.1 [facility] PgxunxzVAVUWXHBFR7909-40-28 06:46:000.6[facility]annHEMATOLOGY 2013-10-14 06:46:000.4[facility] QagimimHAVXACAUVP0599-97-59 06:46:002.3[facility] KaqyuraSQSIEHOLYN9274-69-35 06:46:007.8[facility] WgorvnuRWJZUMHHFW8894-82-49 06:46:99203Icnfopbb UzesyzbNRKOPOKWIF0555-43-95 06:46:0019.5[facility] AVVPUPHNPL2901-01-67 06:46:007.3[facility] BwogzlfQQBVHYIZGE1381-22-52 06:46:00 3.89[facility] KggjgrnSXOQYGIXPJ0524-81-48 06:46:0062.5[facility]annHEMATOLOGY 2013-10-14 06:46:00 Test Item Value Reference Range Interpretation Comments MCH (test code = MCH) 19.2 pg 27.0-31.0 [facility] IoycskrOHIZHWKXKI1732-04-35 06:46:0030.8[facility]annHEMATOLOGY 2013-10-14 06:46:009.2[facility]annCHEM XDNRK7148-78-25 06:46:001.8[facility] HermannCHEM ZYNUL4866-64-38 06:46:003.2[facility]annCHEM ZMOFO1566-80-60 06:46:0044[facility]annCHEM EMYGF1015-60-59 06:46:31969Hpzecsab HermannCHEM AEYHQ7178-53-42 06:46:004.0[facility]annCHEM NTFKZ1796-95-72 06:46:0014 [facility]annCHE[facility] GMHZZ2598-44-78 06:46:001.3[facility]annCHEM PANEL 2013-10-14 06:46:0086[facility]annCHEM QGZOE3328-17-44 06:46:008.4[facility]annCHEM FSJQQ8774-51-60 06:46:0015.0[facility]annCHEM ZNYVZ8745-16-08 06:46:0024[facility]annCHEM CZPHG5910-69-42 06:46:46856Rabygxow HermannCHEM STFAS5480-30-23 06:46:52783Kqrwfstr HermannCHEM FCPWO6506-70-73 06:46:0058 [facility] XjdmpsrOAQLQMWWWY9030-90-27 06:46:0059.9[facility] HermannHEMATOLOGY 2013-10-14 06:46:0030.8[facility] QdczkuxXXGAFMMSTO8340-14-46 06:46:004.4[facility] ZtttswgIKMXIFKBRD9587-31-77 06:46:001.1[facility] YedobriTFLMURUUHJ6907-09-51 06:46:003+ *NA*(10/14/13 1:46 AM)[facility] XdgchhpCMOEWYLDMW1293-51-85 06:46:000.1 [facility] HwbvgydMGUQOQNCXA1097-12-77 06:46:000.6[facility]annHEMATOLOGY 2013-10-14 06:46:000.4[facility] GeusmesGLFOHTYTPB2636-99-84 06:46:002.3[facility] LtshudsPDJPBJOBSR2751-14-38 06:46:007.8[facility] WfsnpoxYATKBDUJGB9709-85-97 06:46:93653Qfiykirw OkvdgrwWQSEDBMGKW8791-38-91 06:46:0019.5[facility] NEUBSUOENZ4520-39-69 06:46:007.3[facility] RfcnnvvLFKYUKIWZX7544-89-97 06:46:00 3.89[facility] BfxvcviQHWJLILXGG7238-15-77 06:46:0062.5[facility] HermannHEMATOLOGY 2013-10-14 06:46:00 Test Item Value Reference Range Interpretation Comments MCH (test code = MCH) 19.2 pg 27.0-31.0 [facility] ZszovgwAHSSVAQIAI4657-07-44 06:46:0030.8[facility]annHEMATOLOGY 2013-10-14 06:46:009.2[facility] HermannCHEM WRPND6283-62-29 06:46:001.8[facility]annCHEM VNMYI6433-36-42 06:46:003.2[facility]annCHEM MHOYF9110-68-46 06:46:0044[facility]annCHEM ORUQN6030-89-25 06:46:64253Hefeipsk HermannCHEM OQVKQ7856-07-56 06:46:001.8[facility] HermannCHEM AZGRV4255-97-98 06:46:003.2 [facility]annCHEM QGHRR5372-71-40 06:46:0044[facility]annCHEM PANEL 2013-10-14 06:46:17734Csckijfs HermannCHEM TARZK2281-12-82 06:46:004.0[facility]annCHEM KQFJV3884-51-67 06:46:0014[facility]annCHEM XZGRP4577-45-35 06:46:001.3[facility]annCHEM QTBYL7692-48-70 06:46:0086[facility]annCHEM IKWVO7952-62-11 06:46:008.4[facility]annCHEM OQOSX9520-37-12 06:46:0015.0 [facility]annCHEM KFDAW5210-34-09 06:46:0024[facility]annCHEM PANEL 2013-10-14 06:46:79480Fxswqtai HermannCHEM QTXSV4091-92-82 06:46:16370Gcvboawx HermannCHEM HLWYP1586-36-73 06:46:0058[facility] RyuoquoEPYMDWGTIY9549-04-71 06:46:0059.9[facility] KhvmbxxNPDNYPKEYY5462-17-67 06:46:0030.8[facility] AGGJQXVTOA9661-49-36 06:46:004.4[facility] PvpzjbeFXUVNFPTPK8868-50-38 06:46:001.1 [facility] TtwxmkqBIHDCYEPUO1197-97-38 06:46:003+ *NA*(10/14/13 1:46 AM)[facility] YtixyhbAYUFHSIHQR3922-07-25 06:46:000.1[facility] HrcsghrONVHRLQHXL9968-51-99 06:46:000.6[facility] KnsjvkcBTFSMGHWCI3297-19-83 06:46:000.4[facility] IQXSWBXQPA3845-03-96 06:46:002.3[facility] TlcrybjUNZQSDBDDL4169-60-29 06:46:007.8 [facility] WafzyvsOBSWAGPINB2730-63-05 06:46:13655Znsuaerl HermannHEMATOLOGY 2013-10-14 06:46:0019.5[facility] ZcuyfuwWNGIABQEGK3127-33-65 06:46:007.3[facility] NdnnlzoAEMVWIKQPV1373-40-90 06:46:003.89[facility] HjpqbmuDKDBPEVAYT3649-15-52 06:46:0062.5[facility] AlblvjpRVEEGSBYBC0914-54-66 06:46:00 Test Item Value Reference Range Interpretation Comments MCH (test code = MCH) 19.2 pg 27.0-31.0 [facility] QajpjvwCAKALFLHXS1170-45-58 06:46:0030.8[facility] HermannHEMATOLOGY 2013-10-14 06:46:009.2[facility] AgvnbrmXEJCFFNZFX2901-23-96 00:00:14 Test Item Value Reference Range Interpretation Comments PTT (test code = PTT) 37.7 s 22.9-35.8 [facility]uxebtAUWEKQXKHR5270-25-99 00:00:14 Test Item Value Reference Range Interpretation Comments PT (test code = PT) 14.4 s 12.0-14.7 [facility]WunvkkzRMPTOYOMPV1318-10-36 00:00:141.13[facility]annHEMATOLOGY 2013-10-14 00:00:14 Test Item Value Reference Range Interpretation Comments PTT (test code = PTT) 37.7 s 22.9-35.8 [facility] EjqpxrjOSNCTHBSHZ5901-20-88 00:00:14 Test Item Value Reference Range Interpretation Comments PT (test code = PT) 14.4 s 12.0-14.7 [facility] ZedifaaNLLWPVIWPN0453-17-40 00:00:141.13[facility]annHEMATOLOGY 2013-10-14 00:00:14 Test Item Value Reference Range Interpretation Comments PTT (test code = PTT) 37.7 s 22.9-35.8 [facility]UQUEWITD1525-72-58 00:00:14 Test Item Value Reference Range Interpretation Comments PT (test code = PT) 14.4 s 12.0-14.7 [facility] HospitalNsioyubPENVUFCLTU2434-55-68 00:00:141.13[facility]:00:14 Test Item Value Reference Range Interpretation Comments PTT (test code = PTT) 37.7 s 22.9-35.8 [facility] HospitalTgwhbjmCMZHLZUSNX5890-69-16 00:00:14 Test Item Value Reference Range Interpretation Comments PT (test code = PT) 14.4 s 12.0-14.7 [facility] HospitalYjkfsrzPSPCMESCQU8576-43-80 00:00:141.13[facility] 2013-10-14 00:00:14 Test Item Value Reference Range Interpretation Comments PTT (test code = PTT) 37.7 s 22.9-35.8 [facility] HospitalLlerzdcTPVXGCOIYZ7098-08-68 00:00:14 Test Item Value Reference Range Interpretation Comments PT (test code = PT) 14.4 s 12.0-14.7 [facility] HospitalAjamdaoPUGCUQAIGX3818-34-83 00:00:141.13[facility] 2013-10-14 00:00:14 Test Item Value Reference Range Interpretation Comments PTT (test code = PTT) 37.7 s 22.9-35.8 [facility] HospitalWligtqqVBPKQSOCLK5974-51-80 00:00:14 Test Item Value Reference Range Interpretation Comments PT (test code = PT) 14.4 s 12.0-14.7 [facility] HospitalNijejkgMTFKSXIFHH4200-41-01 00:00:141.13[facility] 2013-10-14 00:00:14 Test Item Value Reference Range Interpretation Comments PTT (test code = PTT) 37.7 s 22.9-35.8 [facility] HospitalXjqogbbKLSARSAKME4257-93-02 00:00:14 Test Item Value Reference Range Interpretation Comments PT (test code = PT) 14.4 s 12.0-14.7 [facility] HospitalHixtimpGLVFGZZESM8180-38-69 00:00:141.13[facility] 00:00:14 Test Item Value Reference Range Interpretation Comments PTT (test code = PTT) 37.7 s 22.9-35.8 [facility] VjxrlxoNZMTNDHAUT0596-88-36 00:00:14 Test Item Value Reference Range Interpretation Comments PT (test code = PT) 14.4 s 12.0-14.7 [facility] LlajdooXHJJVPJVKF8049-38-73 00:00:141.13[facility]annHEMATOLOGY 2013-10-14 00:00:14 Test Item Value Reference Range Interpretation Comments PTT (test code = PTT) 37.7 s 22.9-35.8 [facility] YbzwcaeRYFTZKPINV6901-08-45 00:00:14 Test Item Value Reference Range Interpretation Comments PT (test code = PT) 14.4 s 12.0-14.7 [facility] FjxtpqiHQZJNRVTST1905-70-61 00:00:141.13Tnm[facility]annHEMATOLOGY 2013-10-14 00:00:14 Test Item Value Reference Range Interpretation Comments PTT (test code = PTT) 37.7 s 22.9-35.8 [facility] GtrueafYTVTYJJTYN3703-61-99 00:00:14 Test Item Value Reference Range Interpretation Comments PT (test code = PT) 14.4 s 12.0-14.7 [facility] YrkxgsmIHLJOJXRSF4002-17-52 00:00:141.13[facility]annHEMATOLOGY 2013-10-13 22:47:171.9[facility] EpwvxcmDGGFWIFEVA5337-61-44 22:47:171.9[facility] ZcdzxtwNHZESLBRNO7903-55-59 22:47:171.9[facility] WqcjptiYPWGWINVLB6773-29-95 22:47:171.9[facility] CbrnyxdPZLGHNOIQQ1150-59-66 22:47:171.9[facility] VFWGEPWYNO5983-59-42 22:47:171.9[facility] MarncimIGUPBDHOZB9497-70-64 22:47:171.9 [facility] VyxvzglQZBUYRWRCJ8161-19-77 22:47:171.9[facility]annHEMATOLOGY 2013-10-13 22:47:171.9[facility] WqfirfaYUXHBYURJF4048-74-62 22:47:171.9[facility] HermannANEMIA JYIMQ3522-48-52 20:48:44218Ueakjoou HermannANEMIA NWFCG2713-68-45 20:48:85184Wjjdeemp HermannANEMIA FQNUB5616-37-66 20:48:009[facility] ANEMIA LGMDS2791-80-75 20:48:0037[facility] HermannANEMIA JYLPM3231-09-26 20:48:00 4[facility] HermannANEMIA DSOPD8991-78-55 20:48:0012.3[facility] HermannANEMIA STUDY 2013-10-13 20:48:16774Pudeqmci HermannCARDIAC RCRWNMF8343-98-43 20:48:003.7 [facility]annCARDIAC URCFCRT7758-99-37 20:48:003.5[facility] HermannCARDIAC ZBLNOIJ5830-49-25 20:48:000.095[facility]annCARDIAC BBIUDYQ7635-08-36 20:48:001.20[facility]annCARDIAC BNHMMKE2561-12-04 20:48:77854Erhckuui HermannCHEM NBZIQ9890-62-03 20:48:000.6[facility]annCHEM XQWFH8562-34-36 20:48:000.1[facility]annCHEM NQGLN5249-67-42 20:48:35302Jxexkmtg Ben JFNKDYRZKH7938-82-54 20:48:92253Dtfuyybd HnuqjthJGLXJM7365-94-54 20:48:0091 [facility] XheiucdFBRUOT1102-88-78 20:48:002.93[facility] KwiujmzDTDUMW9919-55-58 20:48:0056[facility] DwhvsatYMMGCZ9500-07-66 20:48:0017[facility] HermannLIPIDS 2013-10-13 20:48:0084[facility] IdohjrfZKPXDU1647-98-57 20:48:73574Lsrmginm HermannTHYROID ZCOXG4157-65-18 20:48:002.250[facility] HermannANEMIA STUDY 2013-10-13 20:48:57673Qymdbqyo HermannANEMIA GSKOK0745-49-53 20:48:05373Hzelvsku HermannANEMIA TNLXE1441-24-87 20:48:009[facility] HermannANEMIA TZMVG1228-65-88 20:48:0037[facility] HermannANEMIA ILAGK7833-17-54 20:48:004[facility] HermannANEMIA HFJFM3514-85-57 20:48:0012.3[facility] HermannANEMIA MTVDY2211-23-42 20:48:45986 [facility]annCARDIAC NLUMMMB2554-25-18 20:48:003.7[facility] HermannCARDIAC OTDDYTT4628-49-05 20:48:003.5[facility] HermannCARDIAC FSQNUMJ4501-65-97 20:48:00 0.095[facility] HermannCARDIAC LEXGNPB3253-54-11 20:48:001.20[facility] CARDIAC XZQBDWT9598-74-04 20:48:47519Urvnnubn HermannCHEM CUFIA0122-01-43 20:48:000.6[facility] HermannCHEM ABINO2487-49-95 20:48:000.1[facility] HermannCHEM VRNXQ9222-04-89 20:48:84779Aqybwwkz ChmpxbqQGXQRHMDRZ6063-17-73 20:48:14594 [facility] LdxepbyAFTIMV5097-90-54 20:48:0091[facility] SpxtmptULBAQC2938-93-74 20:48:002.93[facility] WlwdzwhYACPWU0463-72-65 20:48:0056[facility] HermannLIPIDS 2013-10-13 20:48:0017[facility] OkcgdgdXXTMUP9098-78-08 20:48:0084[facility] RVCEHN5137-23-53 20:48:17465Wtgbnbkq HermannTHYROID CUDKR3789-36-13 20:48:00 2.250[facility] HermannANEMIA NUKPG0803-21-09 20:48:34392Exliskqo HermannANEMIA YFXHM3669-51-53 20:48:29170Xrxnofxk HermannANEMIA CYKFG1993-38-25 20:48:009 [facility]annANEMIA PZDYZ7246-61-04 20:48:0037[facility] HermannANEMIA STUDY 2013-10-13 20:48:004[facility] HermannANEMIA GASRU2383-36-14 20:48:0012.3[facility] HermannANEMIA UTUGI6990-74-50 20:48:52718Ypodcyng HermannCARDIAC ENZYMES 2013-10-13 20:48:003.7[facility] HermannCARDIAC TYOLIOV7920-38-71 20:48:003.5 [facility] HermannCARDIAC KUETJIA7395-97-34 20:48:000.095[facility] HermannCARDIAC NQUSDBA2242-04-19 20:48:001.20[facility] HermannCARDIAC OYAGHUH5609-53-35 20:48:00 107[facility] HermannCHEM NKTQQ5096-96-65 20:48:000.6[facility] HermannCHEM PANEL 2013-10-13 20:48:000.1[facility] HermannCHEM RMIVY3064-45-02 20:48:19885Eiehsfxh FhcrmifDKYCBLNIEY2380-13-72 20:48:12067Mkbkvucn SncvpcnEWRGPH3095-44-66 20:48:00 91[facility] OwpuzzrIWDPZM0909-14-55 20:48:002.93[facility] GdcwiguADGNHX7740-05-63 20:48:0056[facility] VvfeyqsESBURJ9116-40-45 20:48:0017[facility] HermannLIPIDS 2013-10-13 20:48:0084[facility] PrcgjifBJRHXS0171-92-32 20:48:61109Ckqtuqbw HermannTHYROID CDQKK0307-86-24 20:48:002.250[facility] HermannANEMIA STUDY 2013-10-13 20:48:13502Fijdvolg HermannANEMIA QAAWQ1304-40-11 20:48:14516Wulyefnq HermannANEMIA CPEYC4018-73-07 20:48:009[facility] HermannANEMIA RHNYF9248-54-80 20:48:0037[facility] HermannANEMIA MAZEW7335-73-35 20:48:004[facility] HermannANEMIA JGRUN1291-47-49 20:48:0012.3[facility] HermannANEMIA RSUKE4670-75-97 20:48:78609 [facility] HermannCARDIAC GLXJUCO3778-74-41 20:48:003.7[facility] HermannCARDIAC CSVCNPX5087-82-28 20:48:003.5[facility] HermannCARDIAC VHDTFSD3103-72-83 20:48:00 0.095[facility] HermannCARDIAC LJHGOZB4255-20-16 20:48:001.20[facility] CARDIAC NKDQRBQ0704-91-28 20:48:28981Gomlvlbo HermannCHEM EKFAX0002-33-95 20:48:000.6[facility] HermannCHEM EYQIV4282-93-58 20:48:000.1[facility] HermannCHEM NPKAI8186-17-78 20:48:93427Jyxqzosx QltartnGSVXFSKGES6690-55-95 20:48:14411 [facility] WxhmmseTORNKM7190-61-98 20:48:0091[facility] PfzyqrbTOTTPZ4763-51-93 20:48:002.93[facility] DtnwxajDZNFVV2431-01-38 20:48:0056[facility] HermannLIPIDS 2013-10-13 20:48:0017[facility] FpnauzmPAZQVJ9312-54-92 20:48:0084[facility] JBKASR6833-65-79 20:48:64748Xrwdmsgf HermannTHYROID HYXID5682-99-02 20:48:00 2.250[facility] HermannANEMIA QOFDF1231-04-12 20:48:56672Eojkjold HermannANEMIA TPBEO4493-64-85 20:48:76175Yshmjffv HermannANEMIA DZIPM4142-29-40 20:48:009 [facility] HermannANEMIA GXFQX7104-08-71 20:48:0037[facility] HermannANEMIA STUDY 2013-10-13 20:48:004[facility] HermannANEMIA VBGBA9566-18-65 20:48:0012.3[facility] HermannANEMIA HPYHL4849-88-76 20:48:26070Zhoybbma HermannCARDIAC ENZYMES 2013-10-13 20:48:003.7[facility] HermannCARDIAC QNPEQZI7266-06-23 20:48:003.5 [facility] HermannCARDIAC ULENVKQ1223-83-17 20:48:000.095[facility] HermannCARDIAC VLZAGJK5658-74-88 20:48:001.20[facility] HermannCARDIAC OIHAIUH2735-71-65 20:48:00 107[facility] HermannCHEM YRUJS9711-90-21 20:48:000.6[facility] HermannCHEM PANEL 2013-10-13 20:48:000.1[facility] HermannCHEM NBLFR1462-75-09 20:48:13131Qhmlvrgn RuhioftDYHKXOBCXJ2383-66-45 20:48:82564Vnwikfmd BkqahqmDEOLCK0292-69-46 20:48:00 91[facility] VwojgcuNCJPXO7075-82-48 20:48:002.93[facility] HrkvnnpFDVFIN6502-73-01 20:48:0056[facility] IqdcypmFUSPWR7749-32-79 20:48:0017[facility] HermannLIPIDS 2013-10-13 20:48:0084[facility] EpdxibdBXRBAO3353-97-64 20:48:57987Qaneujpd HermannTHYROID RBBRN7132-95-41 20:48:002.250[facility]annANEMIA STUDY 2013-10-13 20:48:33873Tnfnujjm HermannANEMIA GAYUX8418-90-98 20:48:70851Vdkogkzu HermannANEMIA NMEHX7302-08-49 20:48:009[facility]annANEMIA RNVXP8879-08-49 20:48:0037[facility]annANEMIA BUGOY2766-79-98 20:48:004[facility]annANEMIA TNIBY7712-58-96 20:48:0012.3[facility]annANEMIA UHNDH6805-77-54 20:48:65958 [facility]annCARDIAC RPCVKEH1364-40-43 20:48:003.7[facility]annCARDIAC PKQNJBX4479-45-13 20:48:003.5[facility]annCARDIAC YLOZKGX9541-97-28 20:48:00 0.095[facility]annCARDIAC DXYPRPV8744-78-66 20:48:001.20[facility] CARDIAC JJKTBGB7969-24-95 20:48:52222Uftmybqg HermannCHEM TSBQW5700-75-68 20:48:000.6[facility]annCHEM RXGUI7864-37-13 20:48:000.1[facility]annCHEM CLAQU9434-50-25 20:48:55035Cnkhuadd UioblcgPUTOIGICFF3557-79-34 20:48:76251 [facility] WihigrzVSGLUZ1963-08-93 20:48:0091[facility] ZiwzjwfHGNPNU8689-51-97 20:48:002.93[facility] OowmzhzCXOZMD8043-80-56 20:48:0056[facility] HermannLIPIDS 2013-10-13 20:48:0017[facility] OocvfkbGZGTHL7344-47-28 20:48:0084[facility] ZHYMXF1235-45-22 20:48:02869Reebvnnx HermannTHYROID KEIQK8542-51-82 20:48:00 2.250[facility]annANEMIA JDWYZ7479-16-38 20:48:45367Opmqxnfc HermannANEMIA VUTVZ3287-49-28 20:48:85613Lotcdluc HermannANEMIA MNPBC8219-28-97 20:48:009 [facility]annANEMIA EJQOK2881-53-08 20:48:0037[facility]annANEMIA STUDY 2013-10-13 20:48:004[facility]annANEMIA XJLSZ7959-25-39 20:48:0012.3[facility]annANEMIA VHMSS1919-54-03 20:48:50547Ncczdyzo HermannCARDIAC ENZYMES 2013-10-13 20:48:003.7[facility]annCARDIAC NHHUJEZ9914-80-25 20:48:003.5 [facility]annC[facility]IAC YAVAWHK6946-55-07 20:48:000.095[facility]annCARDIAC EGFRMOL4676-12-27 20:48:001.20[facility]annCARDIAC FCTWGHB9442-37-44 20:48:00 107[facility]annCHEM RLGZK3325-95-15 20:48:000.6[facility]annCHEM PANEL 2013-10-13 20:48:000.1[facility]annCHEM MOPEQ9291-75-70 20:48:72864Dcwedyin XwmdupcVSEXBATAIH6506-66-37 20:48:37724Jxaypsnw FzukcrqWMGIHO9295-03-74 20:48:00 91[facility] KmzzdiiTSJFGX4265-93-33 20:48:002.93[facility] AupddtxCLECCC7886-93-37 20:48:0056[facility] FgkewwnVDIFBQ0843-62-32 20:48:0017[facility] HermannLIPIDS 2013-10-13 20:48:0084[facility] NqzhtznRBXPDR5199-96-21 20:48:56197Jyawcewx HermannTHYROID LHEZP8812-92-12 20:48:002.250[facility]annANEMIA STUDY 2013-10-13 20:48:07077Karxrtgi HermannANEMIA DXLHI2214-26-26 20:48:17821Gsnjssbs HermannANEMIA MWTZP8158-63-07 20:48:009[facility]annANEMIA YHSIU4650-25-33 20:48:0037[facility]annANEMIA SAWAK0290-25-13 20:48:004[facility]annANEMIA NBRJZ0514-67-51 20:48:0012.3[facility]annANEMIA ODWSL2054-67-41 20:48:97803 [facility]annCARDIAC HOIGYAS4321-58-72 20:48:003.7[facility]annCARDIAC MJHFQPL4692-33-46 20:48:003.5[facility]annCARDIAC LNMKSWU0446-55-32 20:48:00 0.095[facility]annCARDIAC ADRLNDL5112-73-09 20:48:001.20[facility] CARDIAC OPICRUL7746-45-50 20:48:78773Vyfbxexx HermannCHEM NDFYT6949-18-57 20:48:000.6[facility]annCHEM TCKYM0390-27-95 20:48:000.1[facility]annCHEM LGZYI4262-91-07 20:48:55839Dzfjycmz MonuxcrTTREHAMNVL6337-56-66 20:48:83597 [facility] FnwjkalWAXSUM6427-57-15 20:48:0091[facility] BxjogzaWXKHYO3699-83-30 20:48:002.93[facility] SjdlpboXMTCHR6341-79-74 20:48:0056[facility] HermannLIPIDS 2013-10-13 20:48:0017[facility] ImrypqyLSWBRT4593-68-67 20:48:0084[facility] VPHAVN1417-81-33 20:48:63641Pxvhrqgl HermannTHYROID GGXKC9478-26-80 20:48:00 2.250[facility]annANEMIA TGAIX5307-01-67 20:48:86050Edijuthf HermannANEMIA SXOBL9730-39-62 20:48:02646Riogpnrb HermannANEMIA FXFUQ4384-73-71 20:48:009 [facility]annANEMIA HPJFI6441-20-80 20:48:0037[facility]annANEMIA STUDY 2013-10-13 20:48:004[facility]annANEMIA HRVOG1189-13-89 20:48:0012.3[facility]annANEMIA JDXNM7282-76-29 20:48:35618Uywovgpj HermannCARDIAC ENZYMES 2013-10-13 20:48:003.7[facility]annCARDIAC VKVUOXM0539-46-16 20:48:003.5 [facility]annCARDIAC MTKEXVR0235-77-83 20:48:000.095[facility]annCARDIAC JEVDWEY9400-88-49 20:48:001.20[facility]annCARDIAC GLVVCXH3802-73-43 20:48:00 107[facility] HermannCHEM RNEXE2962-34-53 20:48:000.6[facility] HermannCHEM PANEL 2013-10-13 20:48:000.1[facility] HermannCHEM FJFWP2190-71-54 20:48:24142Sdfswmit XjcebcxBWLHUQMOKI9517-41-21 20:48:00096Lppuwmop GvmyznzJULCLD4361-74-97 20:48:00 91[facility] PfmnoscUSBZTM0373-78-00 20:48:002.93[facility] NabxbvsLXSUWK5519-17-32 20:48:0056[facility] LnhlvunRAGXTD5872-71-20 20:48:0017[facility] HermannLIPIDS 2013-10-13 20:48:0084[facility] LujqirhAXSFOW9417-51-70 20:48:77758Urjzggcw HermannTHYROID QYJQD8404-86-59 20:48:002.250[facility] HermannANEMIA STUDY 2013-10-13 20:48:47860Onuqhpbt HermannANEMIA JMIAZ4174-67-45 20:48:51135Ubdzgjdh HermannANEMIA DISJY5427-27-95 20:48:009[facility]annANEMIA YNZZL3142-76-56 20:48:0037[facility] HermannANEMIA SXUVD5748-59-81 20:48:004[facility]annANEMIA FNQJR0745-91-13 20:48:0012.3[facility]annANEMIA BSJJF3132-71-33 20:48:44838 [facility]annCARDIAC SLZWHPL7844-97-30 20:48:003.7[facility]annCARDIAC ULFMSQB7460-34-71 20:48:003.5[facility]annCARDIAC PPGBUPY6002-45-26 20:48:00 0.095[facility]annCARDIAC ZNBHWGM9671-25-28 20:48:001.20[facility] CARDIAC KMGFDHY2477-11-05 20:48:41330Jucvkrqs HermannCHEM NMTGG3436-50-86 20:48:000.6[facility] HermannCHEM DLOML2866-73-39 20:48:000.1[facility] HermannCHEM LCADT9506-52-25 20:48:90915Uxktazxa BjsjuqyYKNBSOLZBY4624-99-01 20:48:87470 [facility] NymvoooSLBPNH2401-25-45 20:48:0091[facility] BxecrmgJXOYFM0545-78-77 20:48:002.93[facility] PasreeaVBWDYX5792-08-88 20:48:0056[facility] HermannLIPIDS 2013-10-13 20:48:0017[facility] SdpapjzFNCHAE7322-46-42 20:48:0084[facility] LWPPYK4456-50-98 20:48:40213Chtrgzym HermannTHYROID GKOET5575-86-23 20:48:00 2.250[facility] XkunloqFPLQBRMTNM4305-17-49 20:15:223+ *NA*(10/13/13 3:15 PM) [facility] MegocrtKOZMJEAQWC9875-83-32 20:15:223+ *NA*(10/13/13 3:15 PM)[facility] EgvanmgQDZANUZIHW0888-86-28 20:15:223+ *NA*(10/13/13 3:15 PM)[facility] CDHZWWJXWZ8039-60-98 20:15:223+ *NA*(10/13/13 3:15 PM)[facility]annHEMATOLOGY 2013-10-13 20:15:223+ *NA*(10/13/13 3:15 PM)[facility] WxssnefFYKHQVRRNL9947-52-93 20:15:223+ *NA*(10/13/13 3:15 PM)[facility] AdjbcmtEOGVFJOEQT1650-60-65 20:15:223+ *NA*(10/13/13 3:15 PM)[facility] EbgxppoYZQBNVXMRH5664-15-19 20:15:223+ *NA*(10/13/13 3:15 PM)[facility] ZhvgvfnCLSDICCVNP7498-04-61 20:15:223+ *NA*(10/13/13 3:15 PM)[facility] UnwjgpkRLCNAFYGYH9377-02-60 20:15:223+ *NA*(10/13/13 3:15 PM)[facility]HkhgjshMGTFOVXCRB2862-12-89 15:40:47 Test Item Value Reference Range Interpretation Comments PT (test code = PT) 13.9 s 12.0-14.7 [facility]viewGeldlkxUTQPEPPBFL6272-97-64 15:40:471.08[facility]annHEMATOLOGY 2013-10-13 15:40:47 Test Item Value Reference Range Interpretation Comments PTT (test code = PTT) 27.1 s 22.9-35.8 [facility] QjerxcqTXCCNDTXFD4897-76-79 15:40:47Slight (10/13/13 10:40 AM)[facility]viewTnndwmxIDXAUGBKDP6187-41-72 15:40:47Slight (10/13/13 10:40 AM)[facility] SQYXQKZNGP5262-12-34 15:40:47Slight *ABN*(10/13/13 10:40 AM)[facility] IGBPITFQGK4691-22-22 15:40:471+ *ABN*(10/13/13 10:40 AM)[facility] VKOYCQEYBB0747-95-94 15:40:470.0[facility] MyjpswiUCNLDVMSTG7565-82-96 15:40:47 Test Item Value Reference Range Interpretation Comments PT (test code = PT) 13.9 s 12.0-14.7 [facility]viewGqgvmlxSJMKQGKOOH3813-88-11 15:40:471.08[facility] HermannHEMATOLOGY 2013-10-13 15:40:47 Test Item Value Reference Range Interpretation Comments PTT (test code = PTT) 27.1 s 22.9-35.8 [facility]viewUsoqrkgYVXYMCOGFB6025-47-94 15:40:47Slight (10/13/13 10:40 AM)[facility]viewJgcsiuwKPLDDCLGIV9267-27-44 15:40:47Slight (10/13/13 10:40 AM)[facility] PRRPHFLZMZ0133-78-06 15:40:47Slight *ABN*(10/13/13 10:40 AM)[facility] GDXUEXMULS2707-57-17 15:40:471+ *ABN*(10/13/13 10:40 AM)[facility] SDCYDJRJVD6357-97-31 15:40:470.0[facility] NytfjbiLODPKFVPWJ4700-14-62 15:40:47 Test Item Value Reference Range Interpretation Comments PT (test code = PT) 13.9 s 12.0-14.7 [facility] CenterVmrzzfkTNNIZZUNQK5309-81-11 15:40:[address] [place], [place] [address]ATOLOGY 2013-10-13 15:40:47 Test Item Value Reference Range Interpretation Comments PTT (test code = PTT) 27.1 s 22.9-35.8 [facility] CenterMpsfeyfOZOZDQUAYB2956-98-15 15:40:47Slight (10/13/13 10:40 AM)[facility]pd[facility]csNCVHBIMGBI4400-21-71 15:40:47Slight (10/13/13 10:40 AM)[facility]2014-07-24 15:40:47Slight *ABN*(10/13/13 10:40 AM)[facility]2014-07-24 15:40:471+ *ABN*(10/13/13 10:40 AM)[facility]2014-07-24 15:40:470.0[facility] HospitalQvxnvbiHOQOWTKYLS9710-60-43 15:40:47 Test Item Value Reference Range Interpretation Comments PT (test code = PT) 13.9 s 12.0-14.7 [facility] HospitalKeyavpkIMRTCBXTWG1309-90-27 15:40:[address] [place] [address] 2013-10-13 15:40:47 Test Item Value Reference Range Interpretation Comments PTT (test code = PTT) 27.1 s 22.9-35.8 [facility] CenterUpxylkzDGEOYNUOQO1631-64-92 15:40:47Slight (10/13/13 10:40 AM)[facility] HospitalNajfxiqZJDJEHOBIZ5829-22-66 15:40:47Slight (10/13/13 10:40 AM)[facility]2014-07-24 15:40:47Slight *ABN*(10/13/13 10:40 AM)[facility]2014-07-24 15:40:471+ *ABN*(10/13/13 10:40 AM)[facility]2014-07-24 15:40:470.0[facility] CenterFmazvfmYOBQUAQWLN9237-21-04 15:40:47 Test Item Value Reference Range Interpretation Comments PT (test code = PT) 13.9 s 12.0-14.7 [facility]viewNamlehtITPUOOOPUT8220-11-76 15:40:[address] [place], [place] [address]annHEMATOLOGY 2013-10-13 15:40:47 Test Item Value Reference Range Interpretation Comments PTT (test code = PTT) 27.1 s 22.9-35.8 [facility]viewGfmqeyeQCYQXFQSZN4025-17-37 15:40:47Slight (10/13/13 10:40 AM)[facility] CenterHqogbzqNJPSMJACFU5454-78-75 15:40:47Slight (10/13/13 10:40 AM)[facility] MDMNYFOJMA0880-77-57 15:40:47Slight *ABN*(10/13/13 10:40 AM)[facility]2014-07-24 15:40:471+ *ABN*(10/13/13 10:40 AM)[facility] ORBVIQDGPC0307-11-86 15:40:470.0[facility] CenterOrxviqaAFAXOTNNSC2940-21-67 15:40:47 Test Item Value Reference Range Interpretation Comments PT (test code = PT) 13.9 s 12.0-14.7 [facility]viewAmpwncyXNLMCNJWVD8602-86-46 15:40:[address] [place], [place] [address]HEMATOLOGY 2013-10-13 15:40:47 Test Item Value Reference Range Interpretation Comments PTT (test code = PTT) 27.1 s 22.9-35.8 [facility]viewAdjgmowCSKJKBICSU3170-24-97 15:40:47Slight (10/13/13 10:40 AM)[facility] CenterZrwevibRBVSZHDPYX2139-83-66 15:40:47Slight (10/13/13 10:40 AM)[facility] PVLOGKTJEX7587-34-79 15:40:47Slight *ABN*(10/13/13 10:40 AM)[facility] PXWBMJSXFA3893-79-40 15:40:471+ *ABN*(10/13/13 10:40 AM)[facility] SEMDAVXCIC5593-76-18 15:40:470.0[facility]viewOvyaptxGJQOOMOYZP4375-47-38 15:40:47 Test Item Value Reference Range Interpretation Comments PT (test code = PT) 13.9 s 12.0-14.7 [facility] NytkjwfOLMJOMLYGD5950-85-70 15:40:471.08[facility] HermannHEMATOLOGY 2013-10-13 15:40:47 Test Item Value Reference Range Interpretation Comments PTT (test code = PTT) 27.1 s 22.9-35.8 [facility] LongviewJvvmmenUCWSWMNVQJ6871-15-56 15:40:47Slight (10/13/13 10:40 AM)[facility]viewJitxtrvOJLEEMUGQD6567-09-65 15:40:47Slight (10/13/13 10:40 AM)[facility] CTBAHRFYWD3434-45-69 15:40:47Slight *ABN*(10/13/13 10:40 AM)[facility] XXKFGSXDIP4044-30-09 15:40:471+ *ABN*(10/13/13 10:40 AM)[facility] JWOTUESEKR6498-44-82 15:40:470.0[facility] PeninsulaHucrfwmWEQLNSAVIH8879-74-09 15:40:47 Test Item Value Reference Range Interpretation Comments PT (test code = PT) 13.9 s 12.0-14.7 [facility]viewTfhufvmOTOUFJXNEO8314-59-39 15:40:471.08[facility] HermannHEMATOLOGY 2013-10-13 15:40:47 Test Item Value Reference Range Interpretation Comments PTT (test code = PTT) 27.1 s 22.9-35.8 [facility] LongviewAtyvxkrYCRNEIJVBZ7805-64-13 15:40:47Slight (10/13/13 10:40 AM)[facility] LongviewRbwptokYGMFCQULST1668-36-87 15:40:47Slight (10/13/13 10:40 AM)[facility] UROEBAIKPM9599-74-42 15:40:47Slight *ABN*(10/13/13 10:40 AM)[facility] TRFBKOZCII8791-65-48 15:40:471+ *ABN*(10/13/13 10:40 AM)[facility] ABPFMUMYYA2620-70-66 15:40:470.0[facility] KbldwjrHYYFCBNIUB7845-47-96 15:40:47 Test Item Value Reference Range Interpretation Comments PT (test code = PT) 13.9 s 12.0-14.7 [facility]viewKevmefhYTLNKDLCFH7391-04-72 15:40:471.08[facility]annHEMATOLOGY 2013-10-13 15:40:47 Test Item Value Reference Range Interpretation Comments PTT (test code = PTT) 27.1 s 22.9-35.8 [facility] LongviewMhbconmAIQMDHKZQX1454-46-36 15:40:47Slight (10/13/13 10:40 AM)[facility]viewPgsuwtqGACKBARVKO6853-90-70 15:40:47Slight (10/13/13 10:40 AM)[facility] PEAKTTWBVF1231-64-94 15:40:47Slight *ABN*(10/13/13 10:40 AM)[facility] ETIBSWQUMB5523-37-18 15:40:471+ *ABN*(10/13/13 10:40 AM)[facility] WVKSULKNOI4519-51-03 15:40:470.0[facility] PeninsulaPujuxjgGBENCKMQIF9259-76-77 15:40:47 Test Item Value Reference Range Interpretation Comments PT (test code = PT) 13.9 s 12.0-14.7 [facility] CenterMcmnamoFGVWRJJKHV6568-68-35 15:40:471.08[facility] PeninsulaannHEMATOLOGY 2013-10-13 15:40:47 Test Item Value Reference Range Interpretation Comments PTT (test code = PTT) 27.1 s 22.9-35.8 [facility] CenterYpqlhtcVAEDHIERYV3791-59-96 15:40:47Slight (10/13/13 10:40 AM)[facility]viewVdnuflnKKLVUKBQMY2001-88-64 15:40:47Slight (10/13/13 10:40 AM)[facility] CMHFQTMJRA5384-17-63 15:40:47Slight *ABN*(10/13/13 10:40 AM)[facility] VTOVWSSAIV0275-60-01 15:40:471+ *ABN*(10/13/13 10:40 AM)[facility] OMXQFOTEVM9776-84-30 15:40:470.0[facility] HermannCARDIAC JXLDZYM1148-19-00 15:40:030.129[facility]annCARDIAC BKITZXA7336-35-72 15:40:030.129[facility]annCARDIAC CCISKOX6659-16-88 15:40:030.129[facility]annCARDIAC ENZYMES 2013-10-13 15:40:030.129[facility]annCARDIAC SNGGENK4754-58-74 15:40:030.129 [facility]annCARDIAC QFHZERR0954-83-24 15:40:030.129[facility]annCARDIAC OWYCBSV0105-97-31 15:40:030.129[facility]annCARDIAC LXIZTUB1015-04-99 15:40:030.129[facility]annCARDIAC YNUEMFG5099-45-38 15:40:030.129[facility]annCARDIAC CCJNGCX9626-84-19 15:40:030.129[facility]annCARDIAC ENZYMES 2013-10-13 15:40:0298[facility]annCARDIAC ACURZBD7878-16-27 15:40:024.3 [facility]annCARDIAC UCDHHYU9036-56-14 15:40:024.4[facility]annCARDIAC XLEAIWK1857-26-63 15:40:021.71[facility]annCARDIAC MTPGPCD2019-60-57 15:40:02 98[facility]annCARDIAC QHUIKNQ6067-64-88 15:40:024.3[facility]annCARDIAC AXBAUWW4017-50-03 15:40:024.4[facility]annCARDIAC HPXVKDF8792-10-79 15:40:02 1.71[facility]annCARDIAC AVMLIFV4217-20-02 15:40:0298[facility]annCARDIAC JIQYTEM1239-61-28 15:40:024.3[facility]annCARDIAC CHOFGAI5511-70-69 15:40:02 4.4[facility]annCARDIAC SQXMPAD9673-84-41 15:40:021.71[facility]annCARDIAC IVHURGP2667-92-95 15:40:0298[facility]annCARDIAC XEOYMAK7149-96-53 15:40:02 4.3[facility]annCARDIAC LZOCGEI2496-93-32 15:40:024.4[facility]annCARDIAC MQZPFWS4995-11-21 15:40:021.71[facility]annCARDIAC YEOCFAD8439-50-31 15:40:02 98[facility]annCARDIAC ZDBUNPB9690-26-32 15:40:024.3[facility]annC[facility]IAC ISTKGMV3059-91-28 15:40:024.4[facility]annC[facility]IAC HTZFJRN3380-13-78 15:40:02 1.71[facility]annCARDIAC QMTRAXA6678-81-91 15:40:0298[facility]annCARDIAC PITCXUG6454-00-28 15:40:024.3[facility]annCARDIAC JHGUHBR8362-13-08 15:40:02 4.4[facility]annCARDIAC RJLYDKJ1859-45-77 15:40:021.71[facility]annCARDIAC KKBUXAM3430-40-36 15:40:0298[facility]annCARDIAC QWXPDXJ6686-96-28 15:40:02 4.3[facility]annCARDIAC WEBQKMG5980-96-85 15:40:024.4[facility]annCARDIAC RBKCUBB0375-26-72 15:40:021.71[facility]annCARDIAC CEJZFFE5168-25-85 15:40:02 98[facility]annCARDIAC IBYIWVC1941-57-25 15:40:024.3[facility]annCARDIAC TNRQAXX1268-29-39 15:40:024.4[facility]annCARDIAC FSESSWS5025-60-37 15:40:02 1.71[facility]annCARDIAC ANQJMYZ7402-68-82 15:40:0298[facility]annCARDIAC IYZJPTM9566-02-93 15:40:024.3[facility]annCARDIAC DEMJAHP9388-35-95 15:40:02 4.4[facility]annCARDIAC MWGHYNJ9873-22-78 15:40:021.71[facility]annCARDIAC ITDISSG9254-32-41 15:40:0298[facility]annCARDIAC WKSAEUN7729-53-08 15:40:02 4.3[facility]annCARDIAC ZSVJMUO0614-86-07 15:40:024.4[facility]annCARDIAC BYZKAAF9729-11-64 15:40:021.71[facility]annBL[facility]OD B[facility] QANJEQU5852-95-37 08:34:00Negative (10/13/13 3:34 AM)[facility]BL[facility] IVQYWQU9482-21-69 08:34:00Product available (10/13/13 3:34 AM)[facility]annCARDIAC ENZYMES 2013-10-13 08:34:001.16[facility] HermannCHEM UZRMG8638-12-82 08:34:000.9[facility] HermannCHEM PKNQU9697-98-57 08:34:003.9[facility] HermannCHEM PEOYW7135-98-52 08:34:007.9[facility] HermannCHEM DGNDA7104-07-78 08:34:0019[facility] HermannCHEM QJVGM4316-04-26 08:34:0022[facility] HermannCHEM SXMIJ7700-23-52 08:34:000.6 [facility]annCHEM HHUFJ5792-48-16 08:34:0068[facility]annCHEM PANEL 2013-10-13 08:34:001.0[facility] HermannCHEM QALEN9281-76-11 08:34:004.0[facility] HermannCHEM CSIHG3343-69-15 08:34:0011[facility] CuenuvpZEKWVGOBUK9781-54-04 08:34:00Slight *ABN*(10/13/13 3:34 AM)[facility] FmtiehaFDFWCFIZVX6725-05-84 08:34:00Slight (10/13/13 3:34 AM)[facility] SiqsirkXGFKLOUDLW2425-98-77 08:34:00 Slight *ABN*(10/13/13 3:34 AM)[facility] ZwfymfsYHJCBZCUCZ0039-04-27 08:34:00See Note (10/13/13 3:34 AM)[facility] AadjtjhSUBLYVXVOY0060-48-68 08:34:00Normal (10/13/13 3:34 AM)[facility]BL[facility] VFASDWV0543-78-61 08:34:00Negative (10/13/13 3:34 AM)[facility]BL[facility] OYVFTOW7849-29-44 08:34:00Product available (10/13/13 3:34 AM)[facility]annCARDIAC DOALQRJ7676-14-26 08:34:00 1.16[facility] HermannCHEM JCULA3369-01-53 08:34:000.9[facility] HermannCHEM PANEL 2013-10-13 08:34:003.9[facility] HermannCHEM JOIWZ9214-82-26 08:34:007.9[facility] HermannCHEM TXFLW1153-43-46 08:34:0019[facility] HermannCHEM VVQSI6894-58-97 08:34:0022[facility] HermannCHEM ZOEJG5046-99-45 08:34:000.6[facility] HermannCHEM EZICZ2909-79-31 08:34:0068[facility] HermannCHEM FPYDY1941-76-36 08:34:001.0 [facility]annCHEM OSTKE1332-54-79 08:34:004.0[facility]annCHEM PANEL 2013-10-13 08:34:0011[facility] XvkxrboAMHNIKTHID7817-16-31 08:34:00Slight *ABN*(10/13/13 3:34 AM)[facility] OquhkqnBAJYMOFSTG8094-82-01 08:34:00Slight (10/13/13 3:34 AM)[facility] KmxfnwdELSQBYDALX5419-78-86 08:34:00Slight *ABN*(10/13/13 3:34 AM)[facility] WjntddsXJWOPIEDLT9411-09-51 08:34:00See Note (10/13/13 3:34 AM)[facility] DpqnsxyFLVSUJIDWW6642-46-12 08:34:00Normal (10/13/13 3:34 AM)[facility]annBL[facility] AWHQUBK5248-31-41 08:34:00Negative (10/13/13 3:34 AM)[facility]BL[facility] NDSCWZE2079-56-92 08:34:00Product available (10/13/13 3:34 AM)[facility]annCARDIAC TIVBTJI3983-29-48 08:34:001.16[facility] HermannCHEM QKJFM2559-52-00 08:34:000.9[facility] HermannCHEM SMPWU3821-02-70 08:34:003.9[facility]annCHEM GVSTB2655-15-61 08:34:007.9[facility] HermannCHEM GODGQ8280-84-60 08:34:0019[facility] HermannCHEM VXTEW7986-51-95 08:34:0022 [facility]annCHEM EPKOH5246-31-20 08:34:000.6[facility]annCHEM PANEL 2013-10-13 08:34:0068[facility] HermannCHEM XYAOT2446-10-93 08:34:001.0[facility] HermannCHEM MOWJV8215-59-20 08:34:004.0[facility]annCHEM VZRBA6355-10-93 08:34:0011[facility] HsofvviNBOCOEHLUL4473-62-93 08:34:00Slight *ABN*(10/13/13 3:34 AM)[facility] AklntiuKZBGIPNLMM6975-74-38 08:34:00Slight (10/13/13 3:34 AM)[facility] WapetppYJMPVENHLU8452-18-26 08:34:00Slight *ABN*(10/13/13 3:34 AM)[facility] HtdsbmmGICNGFNOJJ8626-06-08 08:34:00See Note (10/13/13 3:34 AM)[facility] MOXDYFBACF5216-90-92 08:34:00Normal (10/13/13 3:34 AM)[facility]BL[facility] EHKJBNZ8526-18-70 08:34:00Negative (10/13/13 3:34 AM)[facility]BL[facility] PJRHREB0037-96-73 08:34:00Product available (10/13/13 3:34 AM)[facility] CARDIAC ORBQSLB4345-26-96 08:34:001.16[facility] HermannCHEM GFQNS3693-84-25 08:34:000.9[facility] HermannCHEM IWMLW1838-73-39 08:34:003.9[facility] HermannCHEM DIKGB9464-36-51 08:34:007.9[facility]annCHEM KRSBK0065-67-88 08:34:0019 [facility]annCHEM GTNLT5893-34-67 08:34:0022[facility]annCHEM PANEL 2013-10-13 08:34:000.6[facility] HermannCHEM ICRXR6768-60-01 08:34:0068[facility] HermannCHEM MDSIT1158-15-66 08:34:001.0[facility] HermannCHEM ORTFV6737-22-02 08:34:004.0[facility] HermannCHEM DULJH8069-87-13 08:34:0011[facility] UUHJYNTNLI0923-55-85 08:34:00Slight *ABN*(10/13/13 3:34 AM)[facility] RSGODYJKWA0528-42-56 08:34:00Slight (10/13/13 3:34 AM)[facility]annHEMATOLOGY 2013-10-13 08:34:00Slight *ABN*(10/13/13 3:34 AM)[facility]annHEMATOLOGY 2013-10-13 08:34:00See Note (10/13/13 3:34 AM)[facility]annHEMATOLOGY 2013-10-13 08:34:00Normal (10/13/13 3:34 AM)[facility]annBL[facility] BANK RESULTS 2013-10-13 08:34:00Negative (10/13/13 3:34 AM)[facility]annBL[facility] B[facility] RESULTS 2013-10-13 08:34:00Product available (10/13/13 3:34 AM)[facility]annCARDIAC HHZAQPQ3419-82-76 08:34:001.16[facility] HermannCHEM JVMKZ2098-33-95 08:34:000.9 [facility]annCHEM CFYAX5467-42-43 08:34:003.9[facility] HermannCHEM PANEL 2013-10-13 08:34:007.9[facility] HermannCHEM RPMFU9791-32-57 08:34:0019[facility] HermannCHEM QTZCQ2015-58-60 08:34:0022[facility] HermannCHEM EJHUA7451-10-32 08:34:000.6[facility] HermannCHEM JNTLY2433-92-48 08:34:0068[facility] HermannCHEM NZJOU8519-37-78 08:34:001.0[facility] HermannCHEM KIDNV9402-19-85 08:34:004.0 [facility]annCHEM KRWKH3371-69-55 08:34:0011[facility]annHEMATOLOGY 2013-10-13 08:34:00Slight *ABN*(10/13/13 3:34 AM)[facility]annHEMATOLOGY 2013-10-13 08:34:00Slight (10/13/13 3:34 AM)[facility] AjrjbdfNZLDBJMOIB4831-54-68 08:34:00Slight *ABN*(10/13/13 3:34 AM)[facility] MoawmgpKXXAPAEXQZ5105-09-04 08:34:00See Note (10/13/13 3:34 AM)[facility] QpjfqojNIORURRIQR3208-57-23 08:34:00 Normal (10/13/13 3:34 AM)[facility]BL[facility] YGGYZCM9558-00-64 08:34:00 Negative (10/13/13 3:34 AM)[facility]BL[facility] VUGMEIY8587-09-25 08:34:00 Product available (10/13/13 3:34 AM)[facility]annCARDIAC TYKWASG2940-14-47 08:34:001.16[facility] HermannCHEM SRLTQ9928-01-21 08:34:000.9[facility] HermannCHEM IHFVF1043-81-10 08:34:003.9[facility] HermannCHEM MTPHD9364-01-32 08:34:007.9 [facility]annCHEM IJBRD1651-08-46 08:34:0019[facility] HermannCHEM PANEL 2013-10-13 08:34:0022[facility] HermannCHEM OEVGL9064-78-56 08:34:000.6[facility] HermannCHEM TGFZG4429-86-30 08:34:0068[facility] HermannCHEM DCMMY4742-88-44 08:34:001.0[facility] HermannCHEM BQMZM9978-06-38 08:34:004.0[facility] HermannCHEM SPSJW3315-81-70 08:34:0011[facility] KzcslatSSNCQETJIE5783-95-73 08:34:00Slight *ABN*(10/13/13 3:34 AM)[facility] LmuirvvFKLMQFVRLY7469-57-92 08:34:00Slight (10/13/13 3:34 AM)[facility] HcmxlbcGCFENZZQOJ5316-78-45 08:34:00Slight *ABN*(10/13/13 3:34 AM)[facility] UtwffvtVPHSCKGBXM9772-22-48 08:34:00See Note (10/13/13 3:34 AM)[facility] GgepnneBYPDWVZYWW3657-24-14 08:34:00Normal (10/13/13 3:34 AM)[facility]annBL[facility]OD B[facility] UEIWQMI2772-46-87 08:34:00Negative (10/13/13 3:34 AM)[facility]BL[facility] VSLLRIZ0557-81-95 08:34:00Product available (10/13/13 3:34 AM)[facility] HermannCARDIAC TAEGOVU2580-07-45 08:34:001.16[facility] HermannCHEM ISKAQ5433-64-12 08:34:000.9[facility] HermannCHEM GFQIS9315-02-79 08:34:003.9[facility] HermannCHEM JFZHO3783-96-89 08:34:007.9[facility] HermannCHEM UMQLL0551-26-61 08:34:0019[facility] HermannCHEM AMTPX8134-79-56 08:34:0022 [facility]annCHEM EBZXU4190-40-55 08:34:000.6[facility] HermannCHEM PANEL 2013-10-13 08:34:0068[facility] HermannCHEM HINBT8393-11-89 08:34:001.0[facility] HermannCHEM WWUHZ2980-11-97 08:34:004.0[facility] HermannCHEM RHDPJ2938-18-11 08:34:0011[facility] DgrklcmXWWHSBJFRO7447-65-25 08:34:00Slight *ABN*(10/13/13 3:34 AM)[facility] QogzysuRIOYBKBLKY5770-62-93 08:34:00Slight (10/13/13 3:34 AM)[facility] SzwtafmMIFQDJQURR2540-00-34 08:34:00Slight *ABN*(10/13/13 3:34 AM)[facility]YSDUVRFLYW3804-76-51 08:34:00See Note (10/13/13 3:34 AM)[facility] RRORZKQUNJ2550-50-59 08:34:00Normal (10/13/13 3:34 AM)[facility] ISFMCHA1439-69-53 08:34:00Negative (10/13/13 3:34 AM)[facility] [id number] 08:34:00Product available (10/13/13 3:34 AM)[facility] CARDIAC FTGHMAQ4642-63-00 08:34:001.16[facility]annCHE[facility] PAGCV2996-83-38 08:34:000.9[facility]annCHE[facility] AFAGU3711-10-37 08:34:003.9[facility] HQSKU5878-63-28 08:34:007.9[facility] IWAYD4141-68-85 08:34:0019 [facility] HKHIB0153-43-72 08:34:0022[facility]annCHE[facility] PANEL 2013-10-13 08:34:000.6[facility] SWRJD2432-23-44 08:34:0068[facility] IOIZB9076-88-92 08:34:001.0[facility] FVUZW2552-04-02 08:34:004.0[facility] WBDZC3686-20-50 08:34:0011[facility] YBHASAWMHY5286-96-75 08:34:00Slight *ABN*(10/13/13 3:34 AM)[facility] TFEJHKFWDF9721-76-17 08:34:00Slight (10/13/13 3:34 AM)[facility] 2013-10-13 08:34:00Slight *ABN*(10/13/13 3:34 AM)[facility] 2013-10-13 08:34:00See Note (10/13/13 3:34 AM)[facility] 2013-10-13 08:34:00Normal (10/13/13 3:34 AM)[facility] RES[facility] 2013-10-13 08:34:00Negative (10/13/13 3:34 AM)[facility] 2013-10-13 08:34:00Product available (10/13/13 3:34 AM)[facility]ann[facility]ARDI[facility] LWBFAYZ6927-50-83 08:34:001.16[facility]CHE[facility] SOSEN1761-65-32 08:34:000.9 [facility] KGMAE0901-17-28 08:34:003.9[facility]annCHE[facility] PANEL 2013-10-13 08:34:007.9[facility]CHE[facility] PMRAM1634-35-90 08:34:0019[facility] SZDDA4598-91-34 08:34:0022[facility]CHE[facility] QONOS0121-87-66 08:34:000.6[facility] ZDQAE7534-40-30 08:34:0068[facility]annCHE[facility] WBIAZ0689-71-69 08:34:001.0[facility]CHE[facility] IQYTL4656-28-51 08:34:004.0 [facility] NHEBV3030-80-25 08:34:0011[facility]annHEMATOLOGY 2013-10-13 08:34:00Slight *ABN*(10/13/13 3:34 AM)[facility]annHEMATOLOG[facility] 2013-10-13 08:34:00Slight (10/13/13 3:34 AM)[facility] SeduzeaYMZOEIJJLT7470-67-20 08:34:00Slight *ABN*(10/13/13 3:34 AM)[facility] HmazwibRESPGKKUYO5158-58-45 08:34:00See Note (10/13/13 3:34 AM)[facility] NdqeobzNUWINUDGWM3452-84-51 08:34:00 Normal (10/13/13 3:34 AM)[facility] XDDSNMH3159-96-57 08:34:00 Negative (10/13/13 3:34 AM)[facility] SMFCTPM4362-94-57 08:34:00 Product available (10/13/13 3:34 AM)[facility]annCARDIAC PNVETXV3968-98-20 08:34:001.16[facility]annCHE[facility] FNATV9957-56-20 08:34:000.9[facility]annCHE[facility] VOYSS0314-04-09 08:34:003.9[facility]annCHE[facility] NHHQA0071-46-25 08:34:007.9 [facility]CHE[facility] VDXBY9458-04-50 08:34:0019[facility]annCHEM PANEL 2013-10-13 08:34:0022[facility]annCHE[facility] AZEPG5229-80-39 08:34:000.6[facility]annCHE[facility] RLDTC8378-96-06 08:34:0068[facility]annCHE[facility] SDVFZ4319-83-68 08:34:001.0[facility]annCHE[facility] AVZGW5954-02-99 08:34:004.0[facility]annCHE[facility] ERZEV1572-99-78 08:34:0011[facility] ErfkvfkKWKVXWUEQC3291-46-53 08:34:00Slight *ABN*(10/13/13 3:34 AM)[facility] SigeqhiVYOYVRFEJQ3122-40-15 08:34:00Slight (10/13/13 3:34 AM)[facility] LbnyszoOEKOWEZWOE8325-24-43 08:34:00Slight *ABN*(10/13/13 3:34 AM)[facility] XezfiugQSMNAVOTHR9058-22-30 08:34:00See Note (10/13/13 3:34 AM)[facility] SpcwwekRFVAFDVAFH0209-15-18 08:34:00Normal (10/13/13 3:34 AM)[facility]
== END 2021-01-25 19:43 | disposition home or self-care (01) ==
LOC: ER 17:05
DX: S20.319A Abrasion of unspecified front wall of thorax, initial encounter (principal); V49.50XA Passenger injured in collision with unspecified motor vehicles in traffic accident, initial encounter; I10 Essential (primary) hypertension; Z88.8 Allergy status to other drugs, medicaments and biological substances; Z79.82 Long term (current) use of aspirin; Z95.818 Presence of other cardiac implants and grafts
CPT/HCPCS: 85025; 80048; 36415; 80320; 82150; 86900; 86850; 85610; 82565; 86901; 80076; 83690; 71260; 74177; 96375; 96374; 99284; Q9967; J1200; J2930

== ENCOUNTER 2022-11-18 12:27 | Observation (INO) | payer OTHER ==
--- OUTSIDE RECORDS SUMMARY | 2022-11-18 12:44 | XMS REPORT | Continuity of Care Document ---
:1950 Author Organization [facility] t Address [address] [facility] [address] [place] [address] Care Team Providers Name Role Phone Asked, No Pcp Primary Care Physician Unavailable Antoinette Pisano Attending Clinician Unavailable BETTY MOTA Attending Clinician Unavailable ARAMIS GRANDA Attending Clinician Unavailable Aramis Granda MD Attending Clinician Doctor Unassigned, [place] Attending Clinician Unavailable 2, [facility] Attending Clinician Unavailable Betty Mota MD Attending Clinician MARICEL CABRAL Attending Clinician Unavailable Beto QUINTERO, Marcela Figueroa Attending Clinician Unavailable Brigido Tidwell MD Attending Clinician Christine Sandoval Attending Clinician [phone] Damon QUINTERO, Gabby Attending Clinician Unavailable Zechariah WHITEHEAD, Braulio Attending Clinician UNKNOWN, ATTENDING Attending Clinician Unavailable Only, Clc Bls Test Attending Clinician Unavailable Unknown, Attending Attending Clinician Unavailable Jessi QUINTERO, Rema Dubois Attending Clinician Unavailable Jane Nava Attending Clinician Misha WHITEHEAD, Maricel Attending Clinician Nikolas QUINTERO, Phillip Figueroa Attending Clinician Unavailable Only, Web Test Attending Clinician Unavailable Roger Obrien DO Attending Clinician RAND SORIANO Attending Clinician Unavailable Rand Carty Attending Clinician Trish Grider RN Attending Clinician Unavailable LM HUFF Attending Clinician Unavailable Delia Garner MD Attending Clinician Riky Cunha MD, Ben Attending Clinician Lm Huff DO Attending Clinician DELIA GARNER Attending Clinician Unavailable Timo Aponte Attending Clinician Unavailable Mireille Patel Attending Clinician Hubert Elmore Attending Clinician Abdoulaye Feng Attending Clinician Gaston Bello Attending Clinician JANI DALY Attending Clinician Unavailable Jani Daly Attending Clinician Carlos Paredes Attending Clinician CARLOS PAREDES Attending Clinician Unavailable Cooper Nunez Attending Clinician COOPER NUNEZ Attending Clinician Unavailable Mark Castano Attending Clinician Minerva Guallpa Attending Clinician Holland Pisano Admitting Clinician Unavailable BETTY MOTA Admitting Clinician Unavailable Betty Mota MD Admitting Clinician [phone] BEN CASSIDY Admitting Clinician Unavailable Ben Cassidy MD Admitting Clinician Physician, No Primary or Family Admitting Clinician Unavaila ble JANI DALY Admitting Clinician Unavailable Jani Daly Admitting Clinician Juanjose Goodwin Admitting Clinician Payers Payer Name Policy Type Policy Number Effective Date Expiration Date S talib MEDICARE PART A [id number] 2016 \\T\\ B 00:00:00 COMMERCIAL [id number] 2016 NON-CONTRACT 00:00:00 GENERIC MUTUAL OF MILLICENT [id number] 2016 00:00:00 [place] [id number] 2017 Common 00:00:00 [facility] MEDICARE [facility] [id number] 2016 Common 00:00:00 Spirit - [facility] MEDICARE [facility] [id number] 2016 Common 00:00:00 [place] [id number] 2017 Common 00:00:00 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, stenosis, 2-11 [place] bilateral [place] CAD CAD Disease Active Univers (coronary (coronary 9-10 ity of artery artery 00:00: [place] disease) disease) 00 Medica l Branch Dyslipidem Dyslipidem Disease Active U nivers ia ia 9 ity of 00:00: [place] [facility] Stroke of Stroke of Disease Active Uni vers unknown unknown 11-21 ity of etiology etiology 00:00: [place] 00 Medical Branch R19.7 - R19.7 - Diagnosis Active 2020-07-20 Memoria DIARRHEA, DIARRHEA, 07-16 04:32:00 l UNSPECIFIE UNSPECIFIE 00:01: He rc D D Active 00 07/16/2020 [facility] C7A.011 - C7A.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 Active 2020-06-09 Memoria 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: 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 Active 04/18/2020 [facility] LOWER LOWER Diagnosis Active 2019-032020-02-28 Mem oria ABDOMINAL ABDOMINAL 04-20 14:37:00 l PAIN PAIN 00:00: Ben Active 00 02/19/2020 [facility] [id number], [id number], Diagnosis Active 2019-09-02 Me moria K63.89, K63.89, 5-20 14:55:00 l MESENTERIC MESENTERIC 00:00: He rmann MASS MASS 00 Active 08/10/2019 [facility] ABD PAIN ABD PAIN Diagnosis Active 2019-08-11 Memoria Active 07-14 18:18:00 l 07/15/2019 07:30: Bryant cortez [address] STOMACH STOMACH Diagnosis Active 2019-08-11 Memoria PAIN PAIN 07-11 18:18:00 l Active 00:00: Ben 07/12/2019 00 [facility] G45.8 - G45.8 - Diagnosis Active 2019-05-05 Memoria OT OT 10-26 18:59:00 l TRANSIENT TRANSIENT 00:01: Kiran gardner 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 Active 10/26/2018 [facility] buttermaker buttermaker Disease Active Met merary current current 12-11 use of use of 00:00: Hospita anticoagul anticoagul 00 l ant ant Calcaneal Calcaneal Disease Active Met sabirnai [place] 12-11 00:00: Hospita 00 l BOWEL BOWEL Diagnosis Active 2013-10-20 Mem oria OBSTRUCTIO OBSTRUCTIO 10-13 22:06:00 l N N Active 00:00: Ben 10/13/2013 00 [facility] Problem Resolve 2021-02-28 Memoria section section d 22:31:07 l (procedure (procedure He rmann ) ) Resolved Problem 02/28/2021 [facility] her Neuro,[facility] Out[facility] [place]^^^^^^ ^^^[id number] ,[facility] Laparoscop Laparosco Problem Resolve 2021-02-28 Memoria ic pic d 22:31:07 l cholecyste cholecyste He rmann ctomy ctomy (procedure (procedure ) ) Resolved Problem 02/28/2021 [facility] her Neuro,[facility] [place]^^^^^^ ^^^[id number] ,[facility] Gastric Gastric Problem Resolve 2021-02-28 M emoria polyp polyp d 22:31:07 l (disorder) (disorder) He rmann Resolved Problem 02/28/2021 [facility] her Neuro,[facility] [place]^^^^^^ ^^^[id number] ,[facility] Stent, Stent, Problem Resolve 2021-02-28 Mem oria device device d 22:31:07 l (physical (physical Herm kendra object) object) Resolved Problem 02/28/2021 [facility] her Neuro,[facility] [place]^^^^^^ ^^^[id number] ,[facility] Abdominal Abdominal Problem Active 2021-02-28 Memoria mass mass 22:31:07 l (finding) (finding) Herm kendra Active Problem 02/28/2021 Medical [facility] [place]^^^^^^ ^^^[id number] ,[facility] 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 Abraham joana 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 Bryant n (disorder) (disorder) Active Problem 02/28/2021 Medical Group,[facility] her Neuro,[facility] Outpatient Imaging [place]^^^^^^ ^^^[id number] ,[facility] Gastroesop Gastroeso Problem Active 2021-02-28 Memoria hageal phageal 22:31:07 l reflux reflux [place] disease disease (disorder) (disorder) Active Problem 02/28/2021 Medical [facility] [place]^^^^^^ ^^^[id number] ,[facility] History of History Problem Active 2021-02-28 Memoria - CVA of - CVA 22:31:07 l (context-d (context-d [facility] ependent ependent category) category) Active Problem 02/28/2021 Medical Group,[facility] her Neuro,[facility] Outpatient Imaging [place]^^^^^^ ^^^[id number] ,[facility] Hyperchole Hyperchol Problem Active 2021-02-28 Memoria sterolemia esterolemi 22:31:07 l (disorder) a Bryant n (disorder) Active Problem 02/28/2021 Medical [facility] her Neuro,[facility] Outpatient [facility] [place]^^^^^^ ^^^[id number] ,[facility] Simple Simple Problem Active 2021-02-28 Abraham joana obesity obesity 22:31:07 l (disorder) (disorder) He [facility] Active Problem 02/28/2021 Medical Group,[facility] her Neuro,[facility] Outpatient Imaging [place]^^^^^^ ^^^[id number] ,[facility] Transient Transient Problem Active 2021-02-28 Memoria ischemic ischemic 22:31:07 l attack attack [place] (disorder) (disorder) Active Problem 02/28/2021 Medical Group,[facility] her Neuro,[facility] Outpatient [facility]^^^^^^ ^^^[id number] ,[facility] ILLNESS, ILLNESS, Diagnosis Active 2019-09-02 Memoria UNSPECIFIE UNSPECIFIE 14:55:00 l D D Active Ben [facility] INTESTINAL INTESTINA Diagnosis Active 2013-10-20 Memoria OBSTRUCT L OBSTRUCT 22:06:00 l NOS NOS Ben Active [facility] Essential Problem Common hypertensi Spirit on [facility] [id number] Problem Common [facility] [id number] Problem Common [facility] [id number] Problem Common [facility] [id number] Problem Common [facility] Vitamin D Problem Common deficiency [facility] Constipati Problem Commo n on [facility] Microcytic Problem Commo n anemia [facility] Hypertensi Problem Commo n on [facility] Stented Problem Common coronary Spirit artery [facility] Dizziness Problem Common and Spirit giddiness [facility] [id number] [place] [address] [facility] [id number] Problem Common [facility] [id number] [place] [address] [facility] [id number] Problem Common [facility] [id number] [place] Com[place] [address] [facility] [id number] Problem Common [facility] [id number] [place] [address] [facility] [id number] Problem Common [facility] - [facility] [id number] Problem Common [facility] [id number] [place] [id number] [facility] Atheroscle Problem Commo n rotic Spirit heart - [facility] disease of [facility] coronary Medical artery Center without angina pectoris [id number] Problem Common [facility] [id number] Problem Common [facility] [id number] Problem Common [facility] Edema Problem Common [facility] Chronic Problem Common kidney Spirit disease - [facility] stage [facility] [id number] Problem Common [facility] History of Past Illness Condition Condition Condition Status Onset Resolution Last Treating Co mments Source Name Details Category Date Date Treatment Clinician Date Diverticul Diverticu Problem 2019-032020-02-21 2020-02-21 Memoria itis of litis of 04-20 22:32:06 22:32:06 l large large 18:00: [place] intestine intestine 00 without without perforatio perforatio n or n or abscess abscess without without bleeding bleeding 02/19/2020 0 [facility] Epigastric Epigastri Problem 2019-07-18 2019-07-18 Memoria pain c pain 07-15 21:14:24 21:14:24 l 07/16/2019 17:00: Bryant n 07/18/2019 00 [facility] Unspecifie Unspecifi Problem 2019-07-14 2019-07-14 Memoria d ed 07-11 22:18:25 22:18:25 l abdominal abdominal 17:00: Herm kendra pain pain 00 07/12/2019 07/14/2019 [facility] Ventral Ventral Problem 2019-07-14 2019-07-14 Memoria hernia hernia 07-11 22:18:25 22:18:25 l without without 17:00: [place] obstructio obstructio 00 n or n or gangrene gangrene 07/12/2019 0 [facility] Allergies, Adverse Reactions, Alerts Allergy Allergy Status Severity Reaction(s) Onset Inactive Treating Comm ents Source Name Type Date Date Clinician IODINE DRUG Active ITCHING Univers INGREDI 3-09 ity of 00:00: [place] 00 Medical Branch Iodine Propensi Active Itching Univers ty to 3-09 ity of adverse 00:00: [place] reaction 00 Medical s Branch No Known DA Active U [facility] Allergie 11-20 Clear s 00:00: [place] 00 [facility] No Known DA Active U [facility] Allergie 11-20 Clear s 00:00: [place] 00 [facility] No Known No Known Active Memori a Medicati Medicati l on on [place] Allergie Allergie s s NO KNOWN Drug Active Univers ALLERGIE Class ity of S [facility] Family History Family Member Diagnosis Comments Start Date Stop Date Source [facility] Hy[facility] Natural mother Hypertension [facility] Social History Social Habit Start Date Stop Date Quantity Comments Source Gender identity [facility] History of Tobacco Common [facility] - [facility] Exposure to 2021-12-06 2021-12-16 Not sure [facility] SARS-CoV-2 (event) 00:00:00 07:49:00 [facility] Tobacco use and 2021-12-16 2021-12-16 Smokeless Universit y of exposure 00:00:00 00:00:00 tobacco non-user [facility] Social History 2019-09-02 2019-09-02 [facility] ryne 02:44:10 02:44:10 History of Social 2018-11-15 2018-11-[address] function 00:00:00 00:00:00 Hospital Alcohol intake 2018-04-02 2018-04-02 Current [facility] 00:00:00 00:00:00 non-drinker of Hospital alcohol (finding) Sex Ass[birth year] At [birth year] [facility] 00:00:00 00:00:00 Hospital Smoking Status Start Date Stop Date Source Social History [facility] Medications Ordered Filled Start Stop Current Ordering Indication Dosage Frequency Signature Comments Components Source Medication Medication Date Date Medication? Clinician (SIG) Name Name clopidogreL Yes 75mg Take 1 Univ ers 75 mg 3-20 tablet by ity of tablet 09:17: mouth. [address] clopidogreL Yes 75mg Take 1 Univ ers 75 mg 3-20 tablet by ity of tablet 09:17: mouth. [place] [address] Medical Branch clopidogreL 2023-0 Yes 75mg Take 1 Univ ers 75 mg 3-20 tablet by ity of tablet 09:17: mouth. [place] [address] Medical Branch clopidogreL 2023-0 Yes 75mg Take 1 Univ ers 75 mg 3-20 tablet by ity of tablet 09:17: mouth. [place] [address] Medical Branch clopidogreL 2023-0 Yes 75mg Take 1 Univ ers 75 mg 3-20 tablet by ity of tablet 09:17: mouth. [place] [address] Medical Branch pantoprazol 2023-0 Yes 40mg Take 2 Univ ers e 20 mg EC 3-20 tablets by ity of tablet 09:17: mouth in [place] [address] the Medical morning. Branch aspirin 81 2023-0 Yes 81mg Take 1 Unive rs mg chewable 3-20 tablet by ity of tablet 09:17: mouth in [place] [address] the Medical morning. Branch ferrous 2023-0 Yes 65mg Take 65 mg Univ ers sulfate 325 3-20 by mouth ity of mg (65 mg 09:17: daily. [place] iron) 23 Medical tablet Branch pantoprazol 2023-0 Yes 40mg Take 2 Univ ers e 20 mg EC 3-20 tablets by ity of tablet 09:17: mouth in [place] [address] the Medical morning. Branch aspirin 81 2023-0 Yes 81mg Take 1 Unive rs mg chewable 3-20 tablet by ity of tablet 09:17: mouth in [place] [address] the Medical morning. Branch ferrous 2023-0 Yes 65mg Take 65 mg Univ ers sulfate 325 3-20 by mouth ity of mg (65 mg 09:17: daily. [place] iron) 23 Medical tablet Branch pantoprazol 2023-0 Yes 40mg Take 2 Univ ers e 20 mg EC 3-20 tablets by ity of tablet 09:17: mouth in [place] [address] the Medical morning. Branch aspirin 81 2023-0 Yes 81mg Take 1 Unive rs mg chewable 3-20 tablet by ity of tablet 09:17: mouth in [place] [address] the Medical morning. Branch ferrous 2023-0 Yes 65mg Take 65 mg Univ ers sulfate 325 3-20 by mouth ity of mg (65 mg 09:17: daily. [place] iron) 23 Medical tablet Branch pantoprazol 2023-0 Yes 40mg Take 2 Univ ers e 20 mg EC 3-20 tablets by ity of tablet 09:17: mouth in [place] 23 the Medical morning. Branch aspirin 81 0 Yes 81mg Take 1 Unive rs mg chewable 3-20 tablet by ity of tablet 09:17: mouth in [place] 23 the Medical morning. Branch ferrous 0 Yes 65mg Take 65 mg Univ ers sulfate 325 3-20 by mouth ity of mg (65 mg 09:17: daily. [place] iron) 23 Medical tablet Branch pantoprazol Yes 40mg Take 2 Univ ers e 20 mg EC 3-20 tablets by ity of tablet 09:17: mouth in [place] [address] the Medical morning. Branch aspirin 81 0 Yes 81mg Take 1 Unive rs mg chewable 3-20 tablet by ity of tablet 09:17: mouth in [place] [address] the Medical morning. Branch ferrous Yes 65mg Take 65 mg Univ ers sulfate 325 3-20 by mouth ity of mg (65 mg 09:17: daily. [place] iron) 23 Medical tablet Branch iopamidol 2022- No [id number] 65mL 65 mL, Univers (ISOVUE 05-29 Intravenou ity o f 370-500 mL) 20:30: 19:41 s, ONCE, 1 [place] injection 00 :00 dose, On Medica l 65 mL Emma 05/29/22 Branch at 1430, Routine losartan 2021-03 Yes TAKE 1 Univers 100 mg 2-28 TABLET BY ity of tablet 00:00: MOUTH [place] 00 EVERY DAY Medical FOR 90 Branch DAYS losartan 2021-03 Yes TAKE 1 Univers 100 mg 2-28 TABLET BY ity of tablet 00:00: MOUTH [place] 00 EVERY DAY Medical FOR 90 Branch DAYS losartan 2021-03 Yes TAKE 1 Univers 100 mg 2-28 TABLET BY ity of tablet 00:00: MOUTH [place] 00 EVERY DAY Medical FOR 90 Branch DAYS losartan 2021-03 Yes TAKE 1 Univers 100 mg 2-28 TABLET BY ity of tablet 00:00: MOUTH [place] 00 EVERY DAY Medical FOR 90 Branch DAYS losartan 2021-03 Yes TAKE 1 Univers 100 mg 2-28 TABLET BY ity of tablet 00:00: MOUTH [place] 00 EVERY DAY Medical FOR 90 Branch DAYS amLODIPine 2021-03 Yes TAKE 1 Unive rs 10 mg 2-21 TABLET BY ity of tablet 00:00: MOUTH [place] 00 DAILY FOR Medical 210 DAYS. Branch amLODIPine 2021-03 Yes TAKE 1 Unive rs 10 mg 2-21 TABLET BY ity of tablet 00:00: MOUTH 00 DAILY FOR Medical 210 DAYS. Branch amLODIPine 2021-03 Yes TAKE 1 Unive rs 10 mg 2-21 TABLET BY ity of tablet 00:00: MOUTH 00 DAILY FOR Medical 210 DAYS. Branch amLODIPine 2021-03 Yes TAKE 1 Unive rs 10 mg 2-21 TABLET BY ity of tablet 00:00: MOUTH 00 DAILY FOR Medical 210 DAYS. Branch amLODIPine 2021-03 Yes TAKE 1 Unive rs 10 mg 2-21 TABLET BY ity of tablet 00:00: MOUTH 00 DAILY FOR Medical 210 DAYS. Branch Glimepiride Glimepiride No 1{table QD Glimepirid 2 MG 2 MG 6-20 t_with_ e 2 MG 00:00: 00 st_or_t he_firs t_main_ meal_of _the_da y} Jardiance Jardiance 2021- No 1{table QD Jardiance 10 MG 10 MG 6-17 12-13 t} 10 MG 00:00: 00:00 00 :00 Jardiance Jardiance 0 2021- No 1{table QD Jardiance 10 MG 10 MG 6-17 12-13 t} 10 MG 00:00: 00:00 00 :00 Losartan Losartan 2021-0 No 1{table QD Losartan Potassium Potassium 5-13 t} Potassium 100 MG 100 MG 00:00: 100 MG 00 Losartan Losartan 2021-0 No 1{table QD Losartan Potassium Potassium 5-13 t} Potassium 100 MG 100 MG 00:00: 100 MG 00 Losartan Losartan 2021-0 No 1{table QD Losartan Potassium Potassium 5-13 t} Potassium 100 MG 100 MG 00:00: 100 MG 00 Losartan Losartan 2021-0 No 1{table QD Losartan Potassium Potassium 5-13 t} Potassium 100 MG 100 MG 00:00: 100 MG 00 Losartan Losartan 2021-0 No 1{table QD Losartan Potassium Potassium 5-13 t} Potassium 100 MG 100 MG 00:00: 100 MG 00 Losartan Losartan 2021-0 No 1{table QD Losartan Potassium Potassium 5-13 t} Potassium 100 MG 100 MG 00:00: 100 MG 00 Losartan Losartan 2021-0 No 1{table QD Losartan Potassium Potassium 5-13 t} Potassium 100 MG 100 MG 00:00: 100 MG 00 Losartan Losartan No 1{table QD Losartan Potassium Potassium 5-13 t} Potassium 100 MG 100 MG 00:00: 100 MG 00 Losartan Losartan 0 No 1{table QD Losartan Potassium Potassium 5-13 t} Potassium 100 MG 100 MG 00:00: 100 MG 00 Losartan Losartan 0 No 1{table QD Losartan Potassium Potassium 5-13 t} Potassium 100 MG 100 MG 00:00: 100 MG 00 Losartan Losartan 0 No 1{table QD Losartan Potassium Potassium 5-13 t} Potassium 100 MG 100 MG 00:00: 100 MG 00 Amoxicillin Amoxicillin 202- No 1{table BID Amoxicilli -Pot -Pot 5-13 05-20 t} n-Pot Clavulanate Clavulanate 00:00: 00:00 Clavulanat 500-125 MG 500-125 MG 00 :00 e 500-125 MG pantoprazol Yes 40mg Take 40 mg Univers e 20 mg EC 3-01 by mouth ity o f tablet 16:08: daily. [address] aspirin 81 0 Yes 81mg Take 81 mg U nivers mg chewable 3-01 by mouth ity of tablet 16:08: daily. [address] ferrous 2021-0 Yes 65mg Take 65 mg Univ ers sulfate 3-01 by mouth ity of (FERROUSUL) 16:08: [place]. [place] (65 20 Medical mg iron) Branch tablet pantoprazol 0 Yes 40mg Take 40 mg Univers e 20 mg EC 3-01 by mouth ity o f tablet 16:08: daily. [address] aspirin 81 2021-0 Yes 81mg Take 81 mg U nivers mg chewable 3-01 by mouth ity of tablet 16:08: daily. [address] ferrous 2021-0 Yes 65mg Take 65 mg Univ ers sulfate 3-01 by mouth ity of (FERROUSUL) 16:08: daily. [place] 325 mg (65 20 Medical mg iron) Branch tablet pantoprazol 0 Yes 40mg Take 40 mg Univers e 20 mg EC 3-01 by mouth ity o f tablet 16:08: daily. [address] aspirin 81 0 Yes 81mg Take 81 mg U nivers mg chewable 3-01 by mouth ity of tablet 16:08: daily. [address] ferrous 0 Yes 65mg Take 65 mg Univ ers sulfate 3-01 by mouth ity of (FERROUSUL) 16:08: daily. [place] 325 mg (65 20 Medical mg iron) Branch tablet pantoprazol 0 Yes 40mg Take 40 mg Univers e 20 mg EC 3-01 by mouth ity o f tablet 16:08: daily. [address] aspirin 81 0 Yes 81mg Take 81 mg U nivers mg chewable 3-01 by mouth ity of tablet 16:08: daily. [address] ferrous 0 Yes 65mg Take 65 mg Univ ers sulfate 3-01 by mouth ity of (FERROUSUL) 16:08: daily. [place] 325 mg (65 20 Medical mg iron) Branch tablet pantoprazol 0 Yes 40mg Take 40 mg Univers e 20 mg EC 3-01 by mouth ity o f tablet 16:08: daily. [address] aspirin 81 0 Yes 81mg Take 81 mg U nivers mg chewable 3-01 by mouth ity of tablet 16:08: daily. [address] ferrous 0 Yes 65mg Take 65 mg Univ ers sulfate 3-01 by mouth ity of (FERROUSUL) 16:08: daily. [place] mg (65 20 Medical mg iron) Branch tablet pantoprazol 0 Yes 40mg Take 40 mg Univers e 20 mg EC 3-01 by mouth ity o f tablet 16:08: daily. [address] aspirin 81 0 Yes 81mg Take 81 mg U nivers mg chewable 3-01 by mouth ity of tablet 16:08: daily. [address] ferrous 2021-0 Yes 65mg Take 65 mg Univ ers sulfate 3-01 by mouth ity of (FERROUSUL) 16:08: daily. [place] 325 mg (65 20 Medical mg iron) Branch tablet pantoprazol 0 Yes 40mg Take 40 mg Univers e 20 mg EC 3-01 by mouth ity o f tablet 16:08: daily. [address] aspirin 81 2021-0 Yes 81mg Take 81 mg U nivers mg chewable 3-01 by mouth ity of tablet 16:08: daily. [address] ferrous 2021-0 Yes 65mg Take 65 mg Univ ers sulfate 3-01 by mouth ity of (FERROUSUL) 16:08: daily. [place] 325 mg (65 20 Medical mg iron) Branch tablet pantoprazol 0 Yes 40mg Take 40 mg Univers e 20 mg EC 3-01 by mouth ity o f tablet 16:08: daily. [address] aspirin 81 2021-0 Yes 81mg Take 81 mg U nivers mg chewable 3-01 by mouth ity of tablet 16:08: daily. [address] ferrous 2021-0 Yes 65mg Take 65 mg Univ ers sulfate 3-01 by mouth ity of (FERROUSUL) 16:08: [place]. [place] (65 20 [facility] mg iron) Branch tablet pantoprazol 0 Yes 40mg Take 40 mg [facility] 20 mg EC 3-01 by mouth ity o f tablet 16:08: daily. [address] aspirin 81 0 Yes 81mg Take 81 mg U nivers mg chewable 3-01 by mouth ity of tablet 16:08: daily. [address] ferrous 2021-0 Yes 65mg Take 65 mg Univ ers sulfate 3-01 by mouth ity of (FERROUSUL) 16:08: daily. [place] (65 20 [facility] mg iron) Branch tablet pantoprazol 0 Yes 40mg Take 40 mg [facility] 20 mg EC 3-01 by mouth ity o f tablet 16:08: daily. [address] aspirin 81 0 Yes 81mg Take 81 mg [facility] nivers mg chewable 3-01 by mouth ity of tablet 16:08: daily. [address] ferrous 2021-0 Yes 65mg Take 65 mg [facility] ers sulfate 3-01 by mouth ity of (FERROUSUL) 16:08: daily. [place] (65 20 [facility] mg iron) Branch tablet pantoprazol 0 Yes 40mg Take 40 mg [facility] 20 mg EC 3-01 by mouth ity o f tablet 16:08: daily. [address] aspirin 81 2021-0 Yes 81mg Take 81 mg [facility] nivers mg chewable 3-01 by mouth ity of tablet 16:08: daily. [address] ferrous 2021-0 Yes 65mg Take 65 mg [facility] ers sulfate 3-01 by mouth ity of (FERROUSUL) 16:08: daily. [place] (65 20 [facility] mg iron) Branch tablet pantoprazol 0 Yes 40mg Take 40 mg [facility] 20 mg EC 3-01 by mouth ity o f tablet 16:08: daily. [address] aspirin 81 0 Yes 81mg Take 81 mg [facility] nivers mg chewable 3-01 by mouth ity of tablet 16:08: daily. [address] ferrous 2021-0 Yes 65mg Take 65 mg [facility] ers sulfate 3-01 by mouth ity of (FERROUSUL) 16:08: daily. [place] (65 20 [facility] mg iron) Branch tablet pantoprazol 0 Yes 40mg Take 40 mg [facility] 20 mg EC 3-01 by mouth ity o f tablet 16:08: daily. [address] aspirin 81 0 Yes 81mg Take 81 mg [facility] n[facility] mg chewable 3-01 by mouth ity of tablet 16:08: daily. [address] ferrous 2021-0 Yes 65mg Take 65 mg [facility] ers sulfate 3-01 by mouth ity of (FERROUSUL) 16:08: daily. [place] (65 20 [facility] mg iron) Branch tablet pantoprazol 0 Yes 40mg Take 40 mg [facility] 20 mg EC 3-01 by mouth ity o f tablet 16:08: daily. [address] aspirin 81 0 Yes 81mg Take 81 mg [facility] nivers mg chewable 3-01 by mouth ity of tablet 16:08: daily. [address] ferrous 2021-0 Yes 65mg Take 65 mg [facility] ers sulfate 3-01 by mouth ity of (FERROUSUL) 16:08: daily. [place] (65 20 [facility] mg iron) Branch tablet pantoprazol 0 Yes 40mg Take 40 mg [facility] 20 mg EC 3-01 by mouth ity o f tablet 16:08: daily. [address] aspirin 81 0 Yes 81mg Take 81 mg [facility] n[facility] mg chewable 3-01 by mouth ity of tablet 16:08: daily. [address] ferrous 2021-0 Yes 65mg Take 65 mg [facility] ers sulfate 3-01 by mouth ity of (FERROUSUL) 16:08: daily. [place] (65 20 [facility] mg iron) Branch tablet pantoprazol Yes 40mg Take 40 mg [facility] 20 mg EC 3-01 by mouth ity o f tablet 16:08: daily. [address] aspirin 81 Yes 81mg Take 81 mg [facility] n[facility] mg chewable 3-01 by mouth ity of tablet 16:08: daily. [address] ferrous Yes 65mg Take 65 mg [facility] ers sulfate 3-01 by mouth ity of (FERROUSUL) 16:08: daily. [place] mg (65 20 [facility] mg iron) Branch tablet pantoprazol Yes 40mg Take 40 mg [facility] 20 mg EC 3-01 by mouth ity o f tablet 16:08: daily. [address] aspirin 81 Yes 81mg Take 81 mg [facility] nivers mg chewable 3-01 by mouth ity of tablet 16:08: daily. [address] ferrous Yes 65mg Take 65 mg [facility] ers sulfate 3-01 by mouth ity of (FERROUSUL) 16:08: daily. [place] (65 20 [facility] mg iron) Branch tablet Losartan Losartan No 1{table QD Losartan Potassium Potassium 2-10 t} Potassium 50 MG 50 MG 00:00: 50 MG 00 Losartan Losartan No 1{table QD Losartan Potassium Potassium 2-10 t} Potassium 50 MG 50 MG 00:00: 50 MG 00 Dextrometho Dextrometho 2021- No 1{table QID Dextrometh [facility] t_as_ne [facility] ENesin ENesin 00:00: 00:00 eded} iFENesin 20-400 MG 20-400 MG 00 :00 20-400 MG pantoprazol 2020-03 Yes 40mg Take 40 mg [facility] 20 mg EC 2-19 by mouth ity o f tablet 12:00: daily. [address] aspirin 81 2020-03 Yes 81mg Take 81 mg U nivers mg chewable 2-19 by mouth ity of tablet 12:00: daily. [address] ferrous 2020-03 Yes 65mg Take 65 mg [facility] ers sulfate 2-19 by mouth ity of (FERROUSUL) 12:00: daily. [place] (65 34 [facility] mg iron) Branch tablet pantoprazol 2020-03 Yes 40mg Take 40 mg [facility] 20 mg EC 2-19 by mouth ity o f tablet 12:00: daily. [place] [address] Medical Branch aspirin 81 2020-03 Yes 81mg Take 81 mg U nivers mg chewable 2-19 by mouth ity of tablet 12:00: daily. [place] [address] Medical Branch ferrous 2020-03 Yes 65mg Take 65 mg [facility] ers sulfate 2-19 by mouth ity of (FERROUSUL) 12:00: daily. [place] 325 mg (65 34 [facility] mg iron) Branch tablet losartan 2020-03- No [id number] 100mg Take 1 U nivers 100 mg 2-19 12-20 tablet by ity of tablet 00:00: 05:59 mouth [place] 00 :00 daily. Medical Branch carvediloL 2020-03- No [id number] 25mg Take 1 [facility] 25 mg 2-19 12-20 tablet by ity of tablet 00:00: 05:59 mouth 2 [place] 00 :00 (two) Medical times Branch daily with meals. losartan 2020-03- No [id number] 100mg Take 1 U nivers 100 mg 2-19 12-20 tablet by ity of tablet 00:00: 05:59 mouth [place] 00 :00 daily. Medical Branch carvediloL 2020-03- No [id number] 25mg Take 1 [facility] 25 mg 2-19 12-20 tablet by ity of tablet 00:00: 05:59 mouth 2 [place] 00 :00 (two) Medical times Branch daily with meals. losartan 2020-03- No [id number] 100mg Take 1 [facility] nivers 100 mg 2-19 12-20 tablet by ity of tablet 00:00: 05:59 mouth [place] 00 :00 daily. Medical Branch carvediloL 2020-03- No [id number] 25mg Take 1 [facility] 25 mg 2-19 12-20 tablet by ity of tablet 00:00: 05:59 mouth 2 [place] 00 :00 (two) Medical times Branch daily with meals. losartan 2020-03- No [id number] 100mg Take 1 U nivers 100 mg 2-19 12-20 tablet by ity of tablet 00:00: 05:59 mouth [place] 00 :00 daily. Medical Branch carvediloL 2020-03- No [id number] 25mg Take 1 [facility] 25 mg 2-19 12-20 tablet by ity of tablet 00:00: 05:59 mouth 2 [place] 00 :00 (two) Medical times Branch daily with meals. losartan 2020-03- No [id number] 100mg Take 1 U nivers 100 mg 2-19 12-20 tablet by ity of tablet 00:00: 05:59 mouth [place] 00 :00 daily. Medical Branch carvediloL 2020-03- No [id number] 25mg Take 1 [facility] 25 mg 2-19 12-20 tablet by ity of tablet 00:00: 05:59 mouth 2 [place] 00 :00 (two) Medical times Branch daily with meals. losartan 2020-03- No [id number] 100mg Take 1 [facility] nivers 100 mg 2-19 12-20 tablet by ity of tablet 00:00: 05:59 mouth [place] 00 :00 daily. Medical Branch carvediloL 2020-03- No [id number] 25mg Take 1 [facility] 25 mg 2-19 12-20 tablet by ity of tablet 00:00: 05:59 mouth 2 [place] 00 :00 (two) Medical times Branch daily with meals. losartan 2020-03- No [id number] 100mg Take 1 [facility] nivers 100 mg 2-19 12-20 tablet by ity of tablet 00:00: 05:59 mouth [place] 00 :00 daily. Medical Branch carvediloL 2020-03- No [id number] 25mg Take 1 [facility] 25 mg 2-19 12-20 tablet by ity of tablet 00:00: 05:59 mouth 2 [place] 00 :00 (two) Medical times Branch daily with meals. losartan 2020-03- No [id number] 100mg Take 1 [facility] nivers 100 mg 2-19 12-20 tablet by ity of tablet 00:00: 05:59 mouth [place] 00 :00 daily. Medical Branch carvediloL 2020-03- No [id number] 25mg Take 1 [facility] 25 mg 2-19 12-20 tablet by ity of tablet 00:00: 05:59 mouth 2 [place] 00 :00 (two) Medical times Branch daily with meals. losartan 2020-03- No [id number] 100mg Take 1 [facility] nivers 100 mg 2-19 12-20 tablet by ity of tablet 00:00: 05:59 mouth [place] 00 :00 daily. Medical Branch carvediloL 2020-03- No [id number] 25mg Take 1 [facility] 25 mg 2-19 12-20 tablet by ity of tablet 00:00: 05:59 mouth 2 [place] 00 :00 (two) Medical times Branch daily with meals. losartan 2020-03- No [id number] 100mg Take 1 U nivers 100 mg 2-19 12-20 tablet by ity of tablet 00:00: 05:59 mouth [place] 00 :00 daily. Medical Branch carvediloL 2020-03- No [id number] 25mg Take 1 [facility] 25 mg 2-19 12-20 tablet by ity of tablet 00:00: 05:59 mouth 2 [place] 00 :00 (two) Medical times Branch daily with meals. losartan 2020-03- No [id number] 100mg Take 1 U nivers 100 mg 2-19 12-20 tablet by ity of tablet 00:00: 05:59 mouth [place] 00 :00 daily. Medical Branch carvediloL 2020-03- No [id number] 25mg Take 1 [facility] 25 mg 2-19 12-20 tablet by ity of tablet 00:00: 05:59 mouth 2 [place] 00 :00 (two) Medical times Branch daily with meals. losartan 2020-03- No [id number] 100mg Take 1 [facility] nivers 100 mg 2-19 12-20 tablet by ity of tablet 00:00: 05:59 mouth [place] 00 :00 daily. Medical Branch carvediloL 2020-03- No [id number] 25mg Take 1 [facility] 25 mg 2-19 12-20 tablet by ity of tablet 00:00: 05:59 mouth 2 [place] 00 :00 (two) Medical times Branch daily with meals. losartan 2020-03- No [id number] 100mg Take 1 [facility] nivers 100 mg 2-19 12-20 tablet by ity of tablet 00:00: 05:59 mouth [place] 00 :00 daily. Medical Branch carvediloL 2020-03- No [id number] 25mg Take 1 [facility] 25 mg 2-19 12-20 tablet by ity of tablet 00:00: 05:59 mouth 2 [place] 00 :00 (two) Medical times Branch daily with meals. losartan 2020-03- No [id number] 100mg Take 1 U nivers 100 mg 2-19 12-20 tablet by ity of tablet 00:00: 05:59 mouth [place] 00 :00 daily. Medical Branch carvediloL 2020-03- No [id number] 25mg Take 1 [facility] 25 mg 2-19 12-20 tablet by ity of tablet 00:00: 05:59 mouth 2 [place] 00 :00 (two) Medical times Branch daily with meals. losartan 2020-03- No [id number] 100mg Take 1 U nivers 100 mg 2-19 12-20 tablet by ity of tablet 00:00: 05:59 mouth [place] 00 :00 daily. Medical Branch carvediloL 2020-03- No [id number] 25mg Take 1 [facility] 25 mg 2-19 12-20 tablet by ity of tablet 00:00: 05:59 mouth 2 [place] 00 :00 (two) Medical times Branch daily with meals. losartan 2020-03- No [id number] 100mg Take 1 U nivers 100 mg 2-19 12-20 tablet by ity of tablet 00:00: 05:59 mouth [place] 00 :00 daily. Medical Branch carvediloL 2020-03- No [id number] 25mg Take 1 [facility] 25 mg 2-19 12-20 tablet by ity of tablet 00:00: 05:59 mouth 2 [place] 00 :00 (two) Medical times Branch daily with meals. losartan 2020-03- No [id number] 100mg Take 1 U nivers 100 mg 2-19 12-20 tablet by ity of tablet 00:00: 05:59 mouth [place] 00 :00 daily. Medical Branch carvediloL 2020-03- No [id number] 25mg Take 1 [facility] 25 mg 2-19 12-20 tablet by ity of tablet 00:00: 05:59 mouth 2 [place] 00 :00 (two) Medical times Branch daily with meals. traMADoL 50 2020-03- No [id number] 50mg Take 1 Uni vers mg tablet 2-19 12-27 tablet by ity of 00:00: 05:59 mouth [place] 00 :00 every 6 Medical (six) Branch hours as needed for Pain (scale 4-6) or Pain (scale 7-10) for up to 7 days. Indication s: acute pain amLODIPine 2020-03- No [id number] 10mg Take 1 [facility] 10 mg 0-13 05-12 9100 tablet by ity of tablet 00:00: 04:59 mouth [place] 00 :00 daily for Medical 210 days. Branch amLODIPine 2020-03- No [id number] 10mg Take 1 [facility] 10 mg 0-13 05-12 9100 tablet by ity of tablet 00:00: 04:59 mouth [place] 00 :00 daily for Medical 210 days. Branch rosuvastati Yes [id number] 20mg Take 1 [facility] n 20 mg 9-08 9100 tablet by ity of tablet 00:00: mouth at [place] 00 bedtime. Medical Branch rosuvastati 0 Yes [id number] 20mg Take 1 [facility] n 20 mg 9-08 9100 tablet by ity of tablet 00:00: mouth at [place] 00 bedtime. Medical Branch rosuvastati 0 Yes [id number] 20mg Take 1 [facility] n 20 mg 9-08 9100 tablet by ity of tablet 00:00: mouth at [place] 00 bedtime. Medical Branch rosuvastati 0 Yes [id number] 20mg Take 1 [facility] n 20 mg 9-08 9100 tablet by ity of tablet 00:00: mouth at [place] 00 bedtime. Medical Branch rosuvastati 0 Yes [id number] 20mg Take 1 [facility] n 20 mg 9-08 9100 tablet by ity of tablet 00:00: mouth at [place] 00 bedtime. Medical Branch rosuvastati 0 Yes [id number] 20mg Take 1 [facility] n 20 mg 9-08 9100 tablet by ity of tablet 00:00: mouth at [place] 00 bedtime. Medical Branch rosuvastati 0 Yes [id number] 20mg Take 1 [facility] n 20 mg 9-08 9100 tablet by ity of tablet 00:00: mouth at [place] 00 bedtime. Medical Branch rosuvastati 0 Yes [id number] 20mg Take 1 [facility] n 20 mg 9-08 9100 tablet by ity of tablet 00:00: mouth at [place] 00 bedtime. Medical Branch rosuvastati 2020-0 Yes [id number] 20mg Take 1 [facility] n 20 mg 9-08 9100 tablet by ity of tablet 00:00: mouth at [place] 00 bedtime. Medical Branch rosuvastati 2020-0 Yes [id number] 20mg Take 1 [facility] n 20 mg 9-08 9100 tablet by ity of tablet 00:00: mouth at [place] 00 bedtime. Medical Branch rosuvastati 2020-0 Yes [id number] 20mg Take 1 [facility] n 20 mg 9- 9100 tablet by ity of tablet 00:00: mouth at [place] 00 bedtime. Medical Branch rosuvastati 2020-0 Yes [id number] 20mg Take 1 [facility] n 20 mg 9- 9100 tablet by ity of tablet 00:00: mouth at [place] 00 bedtime. Medical Branch rosuvastati 2020-0 Yes [id number] 20mg Take 1 [facility] n 20 mg 9- 9100 tablet by ity of tablet 00:00: mouth at [place] 00 bedtime. Medical Branch rosuvastati 2020-0 Yes [id number] 20mg Take 1 [facility] n 20 mg 9-08 9100 tablet by ity of tablet 00:00: mouth at [place] 00 bedtime. Medical Branch rosuvastati 2020-0 Yes [id number] 20mg Take 1 [facility] n 20 mg 9- 9100 tablet by ity of tablet 00:00: mouth at [place] 00 bedtime. Medical Branch rosuvastati 2020-0 Yes [id number] 20mg Take 1 [facility] n 20 mg 9- 9100 tablet by ity of tablet 00:00: mouth at [place] 00 bedtime. Medical Branch rosuvastati 2020-0 Yes [id number] 20mg Take 1 [facility] n 20 mg 9-08 9100 tablet by ity of tablet 00:00: mouth at [place] 00 bedtime. Medical Branch rosuvastati 2020-0 Yes [id number] 20mg Take 1 [facility] n 20 mg 9-08 9100 tablet by ity of tablet 00:00: mouth at [place] 00 bedtime. Medical Branch rosuvastati 2020-0 Yes [id number] 20mg Take 1 [facility] n 20 mg 9-08 9100 tablet by ity of tablet 00:00: mouth at [place] 00 bedtime. Medical Branch rosuvastati 2020-0 Yes [id number] 20mg Take 1 [facility] n 20 mg 11-2800 tablet by ity of tablet 00:00: mouth at [place] 00 bedtime. Medical Branch rosuvastati 2020-0 Yes [id number] 20mg Take 1 [facility] n 20 mg 11-2800 tablet by ity of tablet 00:00: mouth at [place] 00 bedtime. Medical Branch rosuvastati 2020-0 Yes [id number] 20mg Take 1 [facility] n 20 mg 11-2800 tablet by ity of tablet 00:00: mouth at [place] 00 bedtime. Medical Branch rosuvastati 2020-0 Yes [id number] 20mg Take 1 [facility] n 20 mg 11-28 9100 tablet by ity of tablet 00:00: mouth at [place] 00 bedtime. Medical Branch rosuvastati 2020-0 Yes [id number] 20mg Take 1 [facility] n 20 mg 11-2800 tablet by ity of tablet 00:00: mouth at [place] [address] bedtime. Medical Branch diphenoxyla 2020-0 Yes TAKE 1 [...] WHILE Branch AWAKE NEEDED DIARRHEA losartan 50 2020-0 Yes 50 mg = 1 M emoria mg oral 7-16 tab, PO, l tablet 19:32: Daily, # [place] 00 90 tab, 0 Refill(s), Pharmacy: [id number], 152.4, cm, 10/05/20 13:42:00 CDT, Height, 79.148, kg, 10/05/20 13:42:00 CDT, Weight losartan 50 2020-0 Yes 50 mg = 1 M emoria mg oral 7-16 tab, PO, l tablet 19:32: Daily, # [place] 00 90 tab, 0 Refill(s), Pharmacy: [facility] #[id number], 152.4, cm, 10/05/20 13:42:00 CDT, Height, 79.148, kg, 10/05/20 13:42:00 CDT, Weight losartan 50 2020-0 Yes 50 mg = 1 M emoria mg oral 7-16 tab, PO, l tablet 19:32: Daily, # [place] 00 90 tab, 0 Refill(s), Pharmacy: [facility] #[id number], 152.4, cm, 10/05/20 13:42:00 CDT, Height, 79.148, kg, 10/05/20 13:42:00 CDT, Weight losartan 50 2020-0 Yes 50 mg = 1 M emoria mg oral 7-16 tab, PO, l tablet 19:32: Daily, # [place] 00 90 tab, 0 Refill(s), Pharmacy: [facility] #[id number], 152.4, cm, 10/05/20 13:42:00 CDT, Height, 79.148, kg, 10/05/20 13:42:00 CDT, Weight Sandostatin 2020-0 Yes SUB-Q, Abraham joana 7-16 TID, 0 l 18:45: Refill(s) Sandostatin 2020-0 Yes SUB-Q, [place] joana 7-16 TID, 0 l 18:45: Refill(s) Sandostatin 2020-0 Yes SUB-Q, [place] joana 7-16 TID, 0 l 18:45: Refill(s) Sandostatin 2020-0 Yes SUB-Q, [place] joana 7-16 TID, 0 l 18:45: Refill(s) Metronidazo 2019-03 Yes 500 mg = 1 Memoria le 500 MG -29 tab, PO, l Oral Tablet 20:08: Q8H, X 10 H [place] [Flagyl] day, # 30 tab, 0 Refill(s) Metronidazo 2019-03 Yes 500 mg = 1 Mem[facility] le 500 MG -29 tab, PO, l Oral Tablet 20:08: Q8H, X 10 H [place] [Flagyl] day, # 30 tab, 0 Refill(s) Metronidazo 2019-03 Yes 500 mg = 1 [facility] le 500 MG -29 tab, PO, l Oral Tablet 20:08: Q8H, X 10 H [place] [Flagyl] day, # 30 tab, 0 Refill(s) Metronidazo 2019-03 Yes 500 mg = 1 Memoria le 500 MG -29 tab, PO, l Oral Tablet 20:08: Q8H, X 10 H [place] [Flagyl] day, # 30 tab, 0 Refill(s) Ciprofloxac 2019-03 Yes 500 mg = 1 Memoria in 500 MG -29 tab, PO, l Oral Tablet 20:07: Q12H, X 10 Ben [Cipro] day, # 20 tab, 0 Refill(s) Ciprofloxac 2019-03 Yes 500 mg = 1 Memoria in 500 MG -29 tab, PO, l Oral Tablet 20:07: Q12H, X 10 Ben [Cipro] day, # 20 tab, 0 Refill(s) Ciprofloxac 2019-03 Yes 500 mg = 1 Memoria in 500 MG -29 tab, PO, l Oral Tablet 20:07: Q12H, X 10 Ben [Cipro] day, # 20 tab, 0 Refill(s) Ciprofloxac 2019-03 Yes 500 mg = 1 Memoria in 500 MG 1-29 tab, PO, l Oral Tablet 20:07: Q12H, X 10 Ben [Cipro] day, # 20 tab, 0 Refill(s) Ciprofloxac 2019-03 No 500 mg, Mem oria in 29 Route: PO, l 19:06: ONCE, Dosing Weight 76.818, kg, Priority: STAT, Start date: 02/19/20 13:06:00 EQUITY TRADER, Stop date: 02/19/20 13:06:00 EQUITY TRADER, ABX Indication : Intra-abdo john Infection Flagyl 2019-1 No 500 mg, Memoria 04-20 Route: PO, l 19:06: ONCE, [place] 00 Dosing Weight 76.818, kg, Priority: STAT, Start date: 02/19/20 13:06:00 EQUITY TRADER, Stop date: 02/19/20 13:06:00 EQUITY TRADER, ABX Indication : Intra-abdo john Infection Ciprofloxac 2019-1 No 500 mg, Mem oria in 04-20 Route: PO, l 19:06: ONCE, [place] 00 Dosing Weight 76.818, kg, Priority: STAT, Start date: 02/19/20 13:06:00 EQUITY TRADER, Stop date: 02/19/20 13:06:00 EQUITY TRADER, ABX Indication : Intra-abdo john Infection Flagyl 2019- No 500 mg, [facility] 04-20 Route: PO, l 19:06: ONCE, [place] 00 Dosing Weight 76.818, kg, Priority: STAT, Start date: 02/19/20 13:06:00 EQUITY TRADER, Stop date: 02/19/20 13:06:00 EQUITY TRADER, ABX Indication : Intra-abdo john Infection Ciprofloxac 2019-1 No 500 mg, Mem oria in 04-20 Route: PO, l 19:06: ONCE, [place] 00 Dosing Weight 76.818, kg, Priority: STAT, Start date: 02/19/20 13:06:00 EQUITY TRADER, Stop date: 02/19/20 13:06:00 EQUITY TRADER, ABX Indication : Intra-abdo jonh Infection Flagyl 2019-1 No 500 mg, [facility] 04-20 Route: PO, l 19:06: ONCE, Ben Dosing Weight 76.818, kg, Priority: STAT, Start date: 02/19/20 13:06:00 EQUITY TRADER, Stop date: 02/19/20 13:06:00 EQUITY TRADER, ABX Indication : Intra-abdo john Infection Ciprofloxac 2019-1 No 500 mg, Mem oria in 04-20 Route: PO, l 19:06: ONCE, [place] Dosing Weight 76.818, kg, Priority: STAT, Start date: 02/19/20 13:06:00 EQUITY TRADER, Stop date: 02/19/20 13:06:00 EQUITY TRADER, ABX Indication : Intra-abdo john Infection Flagyl 2019- No 500 mg, [facility] 04-20 Route: PO, l 19:06: ONCE, [place] 00 Dosing Weight 76.818, kg, Priority: STAT, Start date: 02/19/20 13:06:00 EQUITY TRADER, Stop date: 02/19/20 13:06:00 EQUITY TRADER, ABX Indication : Intra-abdo john Infection Morphine 2019- No 4 mg, Mem[facility] 04-20 Route: l 16:44: IVP, ONCE, Dosing Weight 76.818, kg, Priority: STAT, Start date: 02/19/20 10:44:00 EQUITY TRADER, Stop date: 02/19/20 10:44:00 EQUITY TRADER Morphine 2019- No 4 mg, [facility] 04-20 Route: l 16:44: IVP, ONCE, Dosing Weight 76.818, kg, Priority: STAT, Start date: 02/19/20 10:44:00 EQUITY TRADER, Stop date: 02/19/20 10:44:00 EQUITY TRADER Morphine 2019-03 No 4 mg, Mem[facility] 04-20 Route: l 16:44: IVP, ONCE, Dosing Weight 76.818, kg, Priority: STAT, Start date: 02/19/20 10:44:00 EQUITY TRADER, Stop date: 02/19/20 10:44:00 EQUITY TRADER Morphine 2019- No 4 mg, [facility] 04-20 Route: l 16:44: IVP, ONCE, Dosing Weight 76.818, kg, Priority: STAT, Start date: 02/19/20 10:44:00 EQUITY TRADER, Stop date: 02/19/20 10:44:00 EQUITY TRADER Acetaminoph 2020-0 Yes 1 - 2 tab, [...] tab, PO, l tablet 19:58: BID, 0 [place] 00 Refill(s) losartan 50 2020-0 Yes 50 [...] PO, l oral tablet 19:58: Bedtime, 0 [place] 00 Refill(s) amLODIPine 2020-0 Yes 5 mg = 1 Mem oria 5 mg oral 6-16 tab, PO, l tablet 19:58: BID, 0 [place] 00 Refill(s) losartan 50 2020-0 Yes 50 mg = 1 M emoria mg oral 6-16 tab, PO, l tablet 19:58: BID, 0 [place] 00 Refill(s) 24 HR 2020-0 Yes 25 [...] tab, PO, l tablet 19:58: BID, 0 [place] 00 Refill(s) losartan 50 2020-0 Yes 50 [...] PO, l oral tablet 19:58: Bedtime, 0 [place] 00 Refill(s) amLODIPine 2020-0 Yes 5 mg [...] PO, l oral tablet 19:58: Bedtime, 0 [place] 00 Refill(s) BD Normal 2019-0 No Notes: Memori a Saline 09-02 (Same as: l Flush 16:52: BD Posiflush) Sodium 2019-0 No 25 mL, Memoria Chloride 09-02 Route: IV, l 0.9% IV 16:52: Start date: 09/03/19 11:52:00 CDT, Duration: 30 day, Stop date: 10/03/19 11:51:00 CDT, PRN Line Flush, 0 BD Normal 2020-0 No Notes: Memori a Saline 6-13 (Same as: l Flush 16:52: BD [place] Posiflush) Sodium 2020-0 No 25 mL, [facility]oria Chloride 6-13 Route: IV, l 0.9% IV 16:52: Start date: 09/03/19 11:52:00 CDT, Duration: 30 day, Stop date: 10/03/19 11:51:00 CDT, PRN Line Flush, 0 BD Normal 2020-0 No Notes: Memori a Saline 6-13 (Same as: l Flush 16:52: BD [place] Posiflush) Sodium 2020-0 No 25 mL, Memoria [...] 6-13 mL, Route: l 16:51: IVP, Drug [place] 00 form: INJ, BID, Dosing Weight 77.273, kg, Start date: 09/03/19 11:51:00 CDT, Duration: 30 day, Stop date: 10/03/19 9:00:00 CDT, 0 Pepcid 2020-0 No 10 mg, 1 Memoria 6-13 mL, Route: l 16:51: IVP, Drug [place] 00 form: INJ, BID, Dosing Weight 77.273, kg, Start date: 09/03/19 11:51:00 CDT, Duration: 30 day, Stop date: 10/03/19 9:00:00 CDT, 0 Pepcid 2020-0 No 10 mg, 1 [facility] 6-13 mL, Route: l 16:51: IVP, Drug [place] 00 form: INJ, BID, Dosing Weight 77.273, kg, Start date: 09/03/19 11:51:00 CDT, Duration: 30 day, Stop date: 10/03/19 9:00:00 CDT, 0 Pepcid 2020-0 No 10 mg, 1 [facility] 6-13 mL, Route: l 16:51: IVP, Drug [place] 00 form: INJ, BID, Dosing Weight 77.273, kg, Start date: 09/03/19 11:51:00 CDT, Duration: 30 day, Stop date: 10/03/19 9:00:00 CDT, 0 Acetaminoph 2019-0 No Notes: Do M emoria en 300 MG / 6-12 not exceed l Codeine 17:04: 4gm/day of Herm kendra Phosphate 00 acetaminop 30 MG Oral hen. (Same Tablet as: [Tylenol Tylenol with with Codeine #3] Codeine # 3) Acetaminoph No Notes: Do M emoria en 300 MG / 6-12 not exceed l Codeine 17:04: 4gm/day of Herm kendra Phosphate 00 acetaminop 30 MG Oral hen. (Same Tablet as: [Tylenol Tylenol with with Codeine #3] Codeine # 3) Acetaminoph No Notes: Do M emoria en 300 MG / 6-12 not exceed l Codeine 17:04: 4gm/day of Herm kendra Phosphate 00 acetaminop 30 MG Oral hen. (Same Tablet as: [Tylenol Tylenol with with Codeine #3] Codeine # 3) Acetaminoph No Notes: Do M emoria en 300 MG / 6-12 not exceed l Codeine 17:04: 4gm/day of Herm kendra Phosphate 00 acetaminop 30 MG Oral hen. (Same Tablet as: [Tylenol Tylenol with with Codeine #3] Codeine # 3) Dilaudid No Notes: Memoria 6-12 Same as l 17:03: Dilaudid [place] 00 Dilaudid 2020-0 No Notes: Memoria 6-12 Same as l 17:03: Dilaudid [place] 00 Dilaudid 2019-0 No Notes: Memoria 6-12 Same as l 17:03: Dilaudid [place] 00 Dilaudid 2019-0 No Notes: Memoria 6-12 Same as l 17:03: Dilaudid [place] 00 Amlodipine 2020-0 No Notes: Memor ia 6-12 (Same as: l 14:00: Norvasc) [place] 00 Losartan 0 No Notes: Memoria 6-12 (Same as: l 14:00: Cozaar) [place] 00 24 HR 0 No Notes: Memoria Metoprolol 6-12 (Same as: l Tartrate 25 14:00: Toprol XL) [place] MG Extended Do Not Release Crush Tablet [Toprol] Amlodipine 2020-0 No Notes: Memor ia 6-12 (Same as: l 14:00: Norvasc) Losartan 0 No Notes: [facility]oria 6-12 (Same as: l 14:00: Cozaar) [place] 00 24 HR 0 No Notes: [facility] Metoprolol 6-12 (Same as: l Tartrate 25 14:00: Toprol XL) [place] MG Extended Do Not Release Crush Tablet [Toprol] Amlodipine 2019-0 No Notes: Memor ia 6-12 (Same as: l 14:00: Norvasc) [place] 00 Losartan 0 No Notes: Memoria 6-12 (Same as: l 14:00: Cozaar) [place] 00 24 HR 0 No Notes: [facility] Metoprolol 6-12 (Same as: l Tartrate 25 14:00: Toprol XL) [place] MG Extended 00 Do Not Release Crush Tablet [Toprol] Amlodipine 2020-0 No Notes: [facility] 6-12 (Same as: l 14:00: Norvasc) [place] Losartan 2019-0 No Notes: [facility] 6-12 (Same as: l 14:00: Cozaar) [place] 24 HR 0 No Notes: [facility] Metoprolol 6-12 (Same as: l Tartrate 25 14:00: Toprol XL) [place] MG Extended 00 Do Not Release Crush Tablet [Toprol] Enoxaparin 2020-0 No Notes: Memor ia 6-12 (Same as: l 10:00: Lovenox) Ben 00 Enoxaparin 2020-0 No Notes: Memor ia 6-12 (Same as: l 10:00: Lovenox) [place] Enoxaparin 2019-0 No Notes: Memor ia 6-12 (Same as: l 10:00: Lovenox) Ben Enoxaparin 2019-0 No Notes: Memor ia 6-12 (Same as: l 10:00: Lovenox) Ben 00 Protonix 2019-0 No Notes: For Mem oria 6-12 IV push l 04:00: reconstitu Ben 00 te with 10 ml 0.9% sodium chloride and push over 2 minutes. (Same as: Protonix) Protonix No Notes: For Mem oria 6-12 IV push l 04:00: reconstitu Ben 00 te with 10 ml 0.9% sodium chloride and push over 2 minutes. (Same as: Protonix) Protonix No Notes: For Mem oria 6-12 IV push l 04:00: reconstitu [place] 00 te with 10 ml 0.9% sodium chloride and push over 2 minutes. (Same as: Protonix) Protonix 0 No Notes: For Mem oria 6-12 IV push l 04:00: reconstitu Ben 00 te with 10 ml 0.9% sodium chloride and push over 2 minutes. (Same as: Protonix) rosuvastati 2019-0 No Notes: Abraham joana n 6-12 (Same As: l 02:00: Crestor) [place] 00 rosuvastati 2019-0 No Notes: Abraham joana n 6-12 (Same As: l 02:00: Crestor) [place] 00 rosuvastati 2019-0 No Notes: Abraham joana n 6-12 (Same As: l 02:00: Crestor) [place] 00 rosuvastati 2019-0 No Notes: Abraham joana n 6-12 (Same As: l 02:00: Crestor) [place] 00 Phenergan 2019-0 No Notes: Do Mem oria 6-11 not give l 23:59: IV push. [place] 00 (Same as: Phenergan) Phenergan 2019-0 No Notes: Do Mem oria 6-11 not give l 23:59: IV push. Ben 00 (Same as: Phenergan) Phenergan 2019-0 No Notes: Do Mem oria 6-11 not give l 23:59: IV push. [place] 00 (Same as: Phenergan) Phenergan 2019-0 No Notes: Do Mem oria 6-11 not give l 23:59: IV push. [place] 00 (Same as: Phenergan) D5W 1/2NS + 2020-0 No Notes: Abraham joana KCL 20mEq/L 6-11 PREMIX IV l 1000ml 23:58: - Do Not [place] (Premix) 00 Alter 1,000 mL WASTE: F/P - Sink; E - Municipal Trash Bin D5W 1/2NS + 2019-0 No Notes: Abraham joana KCL 20mEq/L 6-11 PREMIX IV l 1000ml 23:58: - Do Not [place] (Premix) 00 Alter 1,000 mL WASTE: F/P - Sink; E - Municipal Trash Bin D5W 1/2NS + 2019-0 No Notes: Abraham joana KCL 20mEq/L 6-11 PREMIX IV l 1000ml 23:58: - Do Not [place] (Premix) 00 Alter 1,000 mL WASTE: F/P [...] Memor ia 6-11 Route: l 20:07: IVPB, [place] 00 ONCE, Dosing Weight 77.273, kg, Start date: 09/01/19 15:07:00 CDT, Stop date: 09/01/19 15:07:00 CDT Ofirmev 2020-0 No 1,000 mg, Memor ia 6-11 Route: l 20:07: IVPB, Ben 00 ONCE, Dosing Weight 77.273, kg, Start date: 09/01/19 15:07:00 CDT, Stop date: 09/01/19 15:07:00 CDT ondansetron 2020-0 No Route: IV, Memoria (ANES) 6-11 Drug form: l 19:30: INJ, ONCE, [place] 00 Stop date: 09/01/19 14:30:00 CDT morphine [...] 2020-0 No Route: IV, Mem oria Sulfate -11 Drug form: l (ANES) 19:30: INJ, ONCE, Tamela nn 00 Stop date: 09/01/19 14:30:00 CDT Phenergan 2020-0 No 6.25 mg, Abraham joana 6-11 Route: l 19:26: IVPB, Ben 00 ONCE, Dosing Weight 77.273, kg, Start date: 09/01/19 14:26:00 CDT, Stop date: 09/01/19 14:26:00 CDT Phenergan 2020-0 No 6.25 mg, Abraham joana 6-11 Route: l 19:26: IVPB, [place] 00 ONCE, Dosing Weight 77.273, kg, Start date: 09/01/19 14:26:00 CDT, Stop date: 09/01/19 14:26:00 CDT Phenergan 2020-0 No 6.25 mg, Abraham joana 6-11 Route: l 19:26: IVPB, [place] 00 ONCE, Dosing Weight 77.273, kg, Start [...] Memoria 6-11 (Same as: l 19:20: Zofran) MEDICATION WASTE Product Size: 4 mg Product Wasted: ___ mg Morphine 2019-0 No Notes: Memoria 6-11 (Same l 19:19: as:MORPhin [place] 00 e Sulfate) Morphine 2019-0 No Notes: Memoria 6-11 (Same l 19:19: as:MORPhin [place] e Sulfate) Morphine 2019-0 No Notes: Memoria 6-11 (Same l 19:19: as:MORPhin [place] e Sulfate) Morphine 2019-0 No Notes: Memoria 6-11 (Same l 19:19: as:MORPhin [place] e Sulfate) ePHEDrine 2019-0 No Route: IV, Me moria (ANES) 6- Drug form: l 19:18: INJ, ONCE, Stop date: 09/01/19 14:18:00 CDT glycopyrrol 2019-0 No Route: IV, Memoria ate (ANES) 08-31 Drug form: l 19:18: INJ, ONCE, Stop date: 09/01/19 14:18:00 CDT neostigmine 2019-0 No Route: IV, Memoria (ANES) 6- Drug form: l 19:18: INJ, ONCE, Stop date: 09/01/19 14:18:00 CDT ePHEDrine 2019-0 No Route: IV, Me moria (ANES) 6 [...] 2020-0 No Route: IV, Memoria ate (ANES) 6-11 Drug form: l 19:18: INJ, [...] Me moria (ANES) 6-11 Drug form: l 17:58: INJ, ONCE, Stop [...] 2020-0 No Route: IV, M emoria (ANES) 6 Drug form: l 17:53: INJ, ONCE, Stop date: 09/01/19 12:53:00 CDT famotidine 2020-0 No Route: IV, Velma emoria (ANES) 6 Drug form: l 17:53: INJ, ONCE, Stop [...] 12:48:00 CDT rocuronium 2020-0 No Route: IV, Velma emoria (ANES) 08-31 Drug form: l 17:48: [...] 2020-0 No Route: IV, Memoria line (ANES) 6 Drug form: l 17:48: INJ, ONCE, Stop [...] ONCE, Stop date: 09/01/19 12:48:00 CDT succinylcho 2019-0 No Route: IV, Trisha line (ANES) 08-31 Drug form: l 17:48: INJ, ONCE, Stop date: 09/01/19 12:48:00 CDT Exparel 2019-0 No Notes: Memoria 08-31 (Same as: l 29: Exparel) NOT FOR IV use Postoperat mirela [...] No Notes: Memoria 08-31 (Same as: l : Exparel) [place] 00 NOT FOR IV use Postoperat mirela [...] No Notes: Memoria 08-31 (Same as: l 29: Exparel) NOT FOR IV use Postoperat mirela [...] 2020-0 No Notes: Memoria 6-11 (Same as: 17:: Exparel) NOT FOR IV use Postoperat mirela [...] Notes: Memoria 6-11 (Same l 17:22: as:MORPhin e Sulfate) Hydromorpho 2019-0 No Notes: Abraham joana ne 6-11 Same as l 17:22: Dilaudid Flumazenil 2019-0 No Notes: Memor ia 6-11 (Same as: l 17:22: Romazicon) Naloxone 2020-0 No Notes: Memoria 6-11 Same as l 17:22: Narcan Albuterol 2020-0 No Notes: SEE Me moria [...] Notes: Memoria 6-11 (Same l 17:22: as:MORPhin [place] 00 e Sulfate) Hydromorpho 2020-0 No Notes: Abraham joana ne 6-11 Same as l 17:22: Dilaudid Flumazenil 2020-0 No Notes: Memor ia 6-11 (Same as: l 17:22: Romazicon) Naloxone 2020-0 No Notes: Memoria 6-11 Same as l 17:22: Narcan Albuterol 2020-0 No Notes: SEE Me moria [...] 6-11 (Same as: l 17:22: Apresoline Ben ) Push over 5 minutes Morphine 2020-0 No Notes: Memoria 6-11 (Same l 17:22: as:MORPhin [place] 00 e Sulfate) Hydromorpho 2020-0 No Notes: Abraham joana ne 6-11 Same as l 17:22: Dilaudid [place] 00 Flumazenil 2020-0 No Notes: Memor ia 6-11 (Same as: l 17:22: Romazicon) [place] 00 Naloxone 2019-0 No Notes: Memoria 6-11 Same as l 17:22: Narcan [place] 00 Albuterol 2019-0 No Notes: SEE Me moria 0.83 MG/ML 6-11 RT l Inhalant 17:22: DOCUMENTAT Her josé Solution 00 ION (Same as: Proventil) Ondansetron 2019-0 No Notes: Abraham joana 6-11 (Same as: l 17:22: Zofran) [place] 00 MEDICATION WASTE Product Size: 4 mg Product Wasted: ___ mg Promethazin 2019-0 No Notes: Do M emoria e 6-11 not give l 17:22: IV push. [place] 00 (Same as: Phenergan) Morphine 2019-0 No Notes: Memoria 6-11 (Same l 17:22: as:MORPhin [place] 00 e Sulfate) Hydromorpho 2019-0 No Notes: Abraham joana ne 6-11 Same as l 17:22: Dilaudid [place] Flumazenil 2019-0 No Notes: Memor ia 6-11 (Same as: l 17:22: Romazicon) [place] 00 Naloxone 2019-0 No Notes: Memoria 6-11 Same as l 17:22: Narcan [place] 00 Albuterol 2019-0 No Notes: SEE Me moria 0.83 MG/ML 6-11 RT l Inhalant 17:22: DOCUMENTAT Her josé Solution 00 ION (Same as: Proventil) Ondansetron 2020-0 No Notes: Abraham joana 6-11 (Same as: l 17:22: Zofran) [place] 00 MEDICATION WASTE Product Size: 4 mg Product Wasted: ___ mg Promethazin 2020-0 No Notes: Do M emoria e 6-11 not give l 17:22: IV push. [place] 00 (Same as: Phenergan) Hydralazine 2019-0 No Notes: Abraham joana 6-11 (Same as: l 17:22: Apresoline [place] 00 ) Push over 5 minutes Lactated 2020-0 No Route: IV, Mem oria [...] PO, l MG Oral 20:56: TID, 0 [place] Tablet 00 Refill(s) metoprolol 2020-0 Yes 25 [...] tab, PO, l Oral Tablet 15:20: QID-Before [place] [Carafate] 00 Meals, # 40 tab, 0 [...] tab, PO, l Oral Tablet 15:20: QID-Before [Carafate] 00 Meals, # 40 tab, 0 [...] Memoria 4-25 Route: l 14:01: IVP, Drug [place] 00 form: INJ, ONCE, Dosing Weight 75.909, kg, Priority: STAT, Start date: 07/16/19 9:01:00 CDT, Stop date: 07/16/19 9:01:00 CDT Zofran 2020-0 No 4 mg, Memoria 4-25 Route: l 14:01: IVP, Drug [place] 00 form: INJ, ONCE, Dosing Weight 75.909, kg, Priority: STAT, Start date: 07/16/19 9:01:00 CDT, Stop date: 07/16/19 9:01:00 CDT Fentanyl 2020-0 No 50 Memoria 4-25 microgram, l 13:49: Route: Ben 00 IVP, ONCE, Dosing Weight 75.909, kg, Priority: STAT, Start date: 07/16/19 8:49:00 CDT, Stop date: 07/16/19 8:49:00 CDT Fentanyl 2020-0 No 50 Memoria 4-25 microgram, l 13:49: Route: [place] 00 IVP, ONCE, Dosing Weight 75.909, kg, Priority: STAT, Start date: 07/16/19 8:49:00 CDT, Stop date: 07/16/19 8:49:00 CDT Fentanyl 2020-0 No 50 Memoria 4-25 microgram, l 13:49: Route: [place] 00 IVP, ONCE, Dosing Weight 75.909, kg, Priority: STAT, Start date: 07/16/19 8:49:00 CDT, Stop date: 07/16/19 8:49:00 CDT Fentanyl 2020-0 No 50 Memoria 4-25 microgram, l 13:49: Route: [place] 00 IVP, ONCE, Dosing Weight 75.909, kg, Priority: STAT, Start date: 07/16/19 8:49:00 CDT, Stop date: 07/16/19 8:49:00 CDT Al 2019-0 No Notes: Memoria hydroxide/M 4-25 [...] hydroxide/M 4-25 (aluminum l g 13:06: hydroxide- [place] hydroxide/s 00 magnesium imethicone hyd-simeth icone 200-200-20 mg/5ml 30 ml ud GENNARO) Xylocaine 2020-0 No Notes: Memori a Viscous 2% 4-25 (Same as: l mucous 13:06: Xylocaine) Tamela nn membrane 00 solution Morphine 2020-0 No Notes: Memoria 4-25 (Same l 13:01: as:MORPhin [place] 00 e Sulfate) Pepcid 2019-0 No Notes: Memoria 4-25 (Same as: l 13:01: Pepcid) [place] 00 Can be dilute in 5-10cc NS IVP: Slow IV push over at least 2 minutes. GI cocktail No 45 mL, Abraham joana (aluminum 4-25 Route: PO, l hydroxide/m 13:01: Dosing Herm kendra agnesium 00 Weight hydroxide/l 75.909, idocaine/si kg, ONCE, methicone) STAT, Start date: 07/16/19 8:01:00 CDT, Stop date: 07/16/19 8:01:00 CDT Morphine 2020-0 No Notes: Memoria 4-25 (Same l 13:01: as:MORPhin [place] 00 e Sulfate) Pepcid 2019-0 No Notes: [...] Notes: Memoria 4-25 (Same l 13:01: as:MORPhin [place] 00 e Sulfate) Pepcid 2020-0 No Notes: Memoria 4-25 (Same as: l 13:01: Pepcid) [place] 00 Can be dilute in 5-10cc NS IVP: Slow IV push over at least 2 minutes. GI cocktail 2019-0 No 45 mL, Abraham joana (aluminum 4-25 Route: PO, l hydroxide/m 13:01: Dosing Herm kendra agnesium 00 Weight hydroxide/l 75.909, idocaine/si kg, ONCE, methicone) STAT, Start date: 07/16/19 8:01:00 CDT, Stop date: 07/16/19 8:01:00 CDT Morphine 2019-0 No Notes: Memoria 4-25 (Same l 13:01: as:MORPhin [place] 00 e Sulfate) Pepcid 0 No Notes: Memoria 4-25 (Same as: l 13:01: Pepcid) [place] 00 Can be dilute in 5-10cc NS [...] Black; E - Municipal Trash Bin Visipaque 0 No Notes: Memori a 320 mg/mL 4-22 (Same as: l injectable 00:38: Visipaque) H ermann solution 00 . WASTE: F/P - Black; E - Municipal Trash Bin Visipaque 0 No Notes: Memori a 320 mg/mL 4-22 (Same as: l injectable 00:38: Visipaque) H ermann solution 00 . WASTE: F/P - Black; E - Municipal Trash Bin Visipaque 0 No Notes: Memori a 320 mg/mL 4-22 (Same as: l injectable 00:38: Visipaque) H ermann solution 00 . WASTE: F/P - Black; E - Municipal Trash Bin ketOROLAC 2019-0 No 4 days Memor ia 30 mg/mL 4-21 l injectable 23:50: MEDICATION H ermann solution 00 WASTE Product Size: 30 mg Product Wasted: _0__ mg ketOROLAC 2019-0 No 4 days Memor ia 30 mg/mL 4-21 l injectable 23:50: MEDICATION H ermann solution 00 WASTE Product Size: 30 mg Product Wasted: _0__ mg ketOROLAC 2020-0 No 4 days Memor ia 30 mg/mL - l injectable 23:50: MEDICATION H ermann solution 00 WASTE Product Size: 30 mg Product Wasted: _0__ mg ketOROLAC 2020-0 No 4 days Memor ia 30 mg/mL 4- l injectable 23:50: MEDICATION H ermann solution 00 WASTE Product Size: 30 mg Product Wasted: _0__ mg Saline 2020-0 No Notes: Memoria Flush 0.9% 4-21 (Same as: l 22:46: BD Ben 00 Posiflush) Sodium 2020-0 No 1,000 mL, Memori a Chloride 4-21 1000 l 0.9% 22:46: ml/hr, [place] (Bolus) IV 00 Infuse Over: 1 hr, [...] 0.9% 4-21 (Same as: l 22:46: BD [place] 00 Posiflush) Sodium 2020-0 No 1,000 mL, Memori a Chloride 4-21 1000 l 0.9% 22:46: ml/hr, [place] (Bolus) IV 00 Infuse Over: 1 hr, [...] Chloride 4-21 1000 l 0.9% 22:46: ml/hr, [place] (Bolus) IV 00 Infuse Over: 1 hr, [...] 0.9% 4-21 (Same as: l 22:46: BD [place] 00 Posiflush) Sodium 2020-0 No 1,000 mL, Memori a Chloride 4-21 1000 l 0.9% 22:46: ml/hr, [place] (Bolus) IV 00 Infuse Over: 1 hr, Route: IV, 1,000, Drug form: INJ, ONCE, Priority: STAT, Dosing Weight 85 kg, Start date: 07/12/19 17:46:00 CDT, Stop date: 07/12/19 17:46:00 CDT, 0 Ondansetron 2020-0 No Notes: Abraham joana 4-21 (Same as: l 22:46: Zofran) [place] 00 MEDICATION WASTE Product Size: 4 mg Product Wasted: 0___ mg Lorazepam 1 Yes 1 mg = 1 [...] n 8-05 Bedtime, 0 l 13:31: Refill(s) [place] 00 Losartan 2019-0 Yes 50 mg, PO, Mem oria 8-05 BID, 0 l 13:31: Refill(s) carvedilol 2019-0 Yes 6.25 mg, Mem oria 8-05 PO, BID, 0 l 13:31: Refill(s) rosuvastati 2019-0 Yes 10 mg, PO, Memoria n 8-05 Bedtime, 0 l 13:31: Refill(s) Losartan 2019-0 Yes 50 mg, PO, Mem oria 8-05 BID, 0 l 13:31: Refill(s) carvedilol 2019-0 Yes 6.25 mg, Mem oria 8-05 PO, BID, 0 l 13:31: Refill(s) rosuvastati 2018-0 Yes 10 mg, PO, Memoria n 8-05 Bedtime, 0 l 13:31: Refill(s) Losartan 2019-0 Yes 50 mg, PO, Mem oria 8-05 BID, 0 l 13:31: Refill(s) carvedilol 2019-0 Yes 6.25 mg, Mem oria 8-05 PO, BID, 0 l 13:31: Refill(s) rosuvastati 2018-0 Yes 10 mg, PO, Memoria n 8-05 Bedtime, 0 l 13:31: Refill(s) Losartan 2019-0 Yes 50 mg, PO, Mem oria 8-05 BID, 0 l 13:31: Refill(s) pantoprazol 2019-0 Yes 40 mg, PO, Memoria e 8-05 Daily, # l 13:30: 30 tab, 0 Refill(s) pantoprazol 2019-0 Yes 40 mg, PO, Memoria e 8-05 Daily, # l 13:30: 30 tab, 0 Refill(s) pantoprazol 2019-0 Yes 40 mg, PO, Memoria e 8-05 Daily, # l 13:30: 30 tab, 0 Refill(s) pantoprazol 2019-0 Yes 40 mg, PO, Memoria e 8-05 Daily, # l 13:30: 30 tab, 0 Refill(s) losartan 2017-03 Yes 50mg QD Take 50 mg [facility] (COZAAR) 50 1-[address] MG tablet 20:47: daily. Hospit a 19 l pantoprazol 2017-03 Yes 40mg QD Take 40 mg [facility] 1-[address] (PROTONIX) 20:47: daily. Hospi ta 40 MG EC 19 l tablet clopidogrel 2017-03 Yes 75mg QD Take 75 mg [facility] (PLAVIX) 75 1-[address] mg tablet 20:47: daily. Hospit a 19 l rosuvastati 2017-03 Yes 10mg QD Take 10 mg [facility] (CRESTOR) 1-[address] 10 MG 20:47: daily. [...] QD Take 81 mg [facility] (ECOTRIN) 1-[address] 81 MG 20:47: daily. Hospita enteric 19 l coated tablet losartan 2017-03 Yes 50mg QD Take 50 mg [facility] (COZAAR) 50 1-[address] MG tablet 14:47: daily. Hospit a 19 l pantoprazol 2017-03 Yes 40mg QD Take 40 mg [facility] 1[facility] (PROTONIX) 14:47: daily. Hospi ta 40 MG EC 19 l tablet clopidogrel 2017-03 Yes 75mg QD Take 75 mg [facility] (PLAVIX) 75 1-[address] mg tablet 14:47: daily. Hospit a 19 l rosuvastati 2017-03 Yes 10mg QD Take 10 mg [facility] (CRESTOR) 1-[address] 10 MG 14:47: daily. Hospita tablet 19 l ranitidine 2017-03 Yes 150mg Q.5D Take 150 [facility] (ZANTAC) 1-[address] 150 MG 14:47: mouth 2 Hospita tablet 19 (two) l times a day. iron 2017-03 Yes Take by [facility] bis-gly/FA/ 1-[address] C/B12/Ca/parr 14:47: Hospit a cc 19 l (IRON-150 ORAL) aspirin 2017-03 Yes 81mg QD Take 81 mg [facility] (ECOTRIN) 1-[address] 81 MG 14:47: daily. Hospita enteric 19 l coated tablet LIDOCAINE LIDOCAINE 2017-0 No 1mL Com mon HCL 20MG/ML HCL 20MG/ML 8-22 S pirit 00:00: - [facility] Betamethaso Betamethaso 2018-0 No 1mL Common ne Sodium ne Sodium 8-22 Spiri t Phosphate Phosphate 00:00: - [facility] LIDOCAINE LIDOCAINE 2017-0 No 1mL Com mon HCL 20MG/ML HCL 20MG/ML 8-22 S pirit 00:00: - [facility] Betamethaso Betamethaso 2018-0 No 1mL Common ne Sodium ne Sodium 8-22 Spiri t Phosphate Phosphate 00:00: - [facility] LIDOCAINE LIDOCAINE 2018-0 No 1mL Com mon HCL 20MG/ML HCL 20MG/ML 8-22 S pirit 00:00: - [facility] Betamethaso Betamethaso 2018-0 No 1mL Common ne Sodium ne Sodium 8-22 Spiri t Phosphate Phosphate 00:00: - [facility] LIDOCAINE LIDOCAINE 2018-0 No 1mL Com mon HCL 20MG/ML HCL 20MG/ML 8-22 S pirit 00:00: - [facility] Betamethaso Betamethaso 2018-0 No 1mL Common ne Sodium ne Sodium 8-22 Spiri t Phosphate Phosphate 00:00: - [facility] LIDOCAINE LIDOCAINE 2018-0 No 1mL Com mon HCL 20MG/ML HCL 20MG/ML 8-22 S pirit 00:00: - [facility] Betamethaso Betamethaso 2018-0 No 1mL Common ne Sodium ne Sodium 8-22 Spiri t Phosphate Phosphate 00:00: - [facility] LIDOCAINE LIDOCAINE 2018-0 No 1mL Com mon HCL 20MG/ML HCL 20MG/ML 8-22 S pirit 00:00: - [facility] Betamethaso Betamethaso 2018-0 No 1mL Common ne Sodium ne Sodium 8-22 Spiri t Phosphate Phosphate 00:00: - [facility] LIDOCAINE LIDOCAINE 2018-0 No 1mL Com mon HCL 20MG/ML HCL 20MG/ML 8-22 S pirit 00:00: - [facility] Betamethaso Betamethaso 2018-0 No 1mL Common ne Sodium ne Sodium 8-22 Spiri t Phosphate Phosphate 00:00: - [facility] LIDOCAINE LIDOCAINE 2018-0 No 1mL Com mon HCL 20MG/ML HCL 20MG/ML 8-22 S pirit 00:00: - [facility] Betamethaso Betamethaso 2018-0 No 1mL Common ne Sodium ne Sodium 8-22 Spiri t Phosphate Phosphate 00:00: - [facility] LIDOCAINE LIDOCAINE 2018-0 No 1mL Com mon HCL 20MG/ML HCL 20MG/ML 8-22 S pirit 00:00: - [facility] Betamethaso Betamethaso 2018-0 No 1mL Common ne Sodium ne Sodium 8-22 Spiri t Phosphate Phosphate 00:00: - [facility] LIDOCAINE LIDOCAINE 2018-0 No 1mL Com mon HCL 20MG/ML HCL 20MG/ML 8-22 S pirit 00:00: - [facility] Betamethaso Betamethaso 2018-0 No 1mL Common ne Sodium ne Sodium 8-22 Spiri t Phosphate Phosphate 00:00: - [facility] LIDOCAINE LIDOCAINE 2018-0 No 1mL Com mon HCL 20MG/ML HCL 20MG/ML 8-22 S pirit 00:00: - [facility] Betamethaso Betamethaso 2018-0 No 1mL Common ne Sodium ne Sodium 8-22 Spiri t Phosphate Phosphate 00:00: - [facility] LIDOCAINE LIDOCAINE 2018-0 No 1mL Com mon HCL 20MG/ML HCL 20MG/ML 8-22 S pirit 00:00: - [facility] Betamethaso Betamethaso 2018-0 No 1mL Common ne Sodium ne Sodium 8-22 Spiri t Phosphate Phosphate 00:00: - [facility] LIDOCAINE LIDOCAINE 2018-0 No 1mL Com mon HCL 20MG/ML HCL 20MG/ML 8-22 S pirit 00:00: - [facility] Betamethaso Betamethaso 2018-0 No 1mL Common ne Sodium ne Sodium 8-22 Spiri t Phosphate Phosphate 00:00: - [facility] LIDOCAINE LIDOCAINE 2018-0 No 1mL Com mon HCL 20MG/ML HCL 20MG/ML 8-22 S pirit 00:00: - [facility] Betamethaso Betamethaso 2018-0 No 1mL Common ne Sodium ne Sodium 8-22 Spiri t Phosphate Phosphate 00:00: - [facility] carvedilol Yes 3.125 mg = M emoria 3.125 mg 7-27 1 tab, PO, l oral tablet 19:52: BID, # 60 H ermann 00 tab, 2 Refill(s) atorvastati Yes 80 mg = 1 M emoria n 80 mg 7-27 tab, PO, l oral tablet 19:52: Bedtime, # [place] 00 30 tab, 2 Refill(s) Aspirin 81 Yes 81 mg = 1 Me moria MG Enteric 7-27 tab, PO, l Coated 19:52: Daily, # [place] Tablet 00 120 tab, 1 Refill(s) losartan 50 Yes 100 mg = 2 Memoria mg oral 7-27 tab, PO, l tablet 19:52: Daily, # [place] 00 60 tab, 2 Refill(s) pantoprazol Yes 40 mg = 1 M emoria e 40 mg 7-27 tab, PO, l oral 19:52: Daily, # [place] enteric 00 30 tab, 2 coated Refill(s) tablet carvedilol Yes 3.125 mg = M emoria 3.125 mg 7-27 1 tab, PO, l oral tablet 19:52: BID, # 60 H ermann 00 tab, 2 Refill(s) atorvastati Yes 80 mg = 1 M emoria n 80 mg 7-27 tab, PO, l oral tablet 19:52: Bedtime, # [place] 00 30 tab, 2 Refill(s) Aspirin 81 [...] tab, PO, l oral 19:52: Daily, # [place] enteric 00 30 tab, 2 coated Refill(s) [...] tab, PO, l Coated 19:52: Daily, # [place] Tablet 00 120 tab, 1 Refill(s) losartan 50 Yes 100 mg = 2 Memoria mg oral 7-27 tab, PO, l tablet 19:52: Daily, # [place] 00 60 tab, 2 Refill(s) pantoprazol Yes 40 mg = 1 M emoria e 40 mg 7-27 tab, PO, l oral 19:52: Daily, # [place] enteric 00 30 tab, 2 coated Refill(s) [...] tab, PO, l tablet 19:52: Daily, # [place] 00 60 tab, 2 Refill(s) pantoprazol Yes 40 mg = 1 M emoria e 40 mg 7-27 tab, PO, l oral 19:52: Daily, # [place] enteric 00 30 tab, 2 coated Refill(s) tablet Magnesium No Notes: Memori a Oxide 7-27 (Same as: l 13:06: Mag-Ox [place] 00 400) Magnesium oxide [id number] g elemental magnesium Dose=____m g magnesium oxide (___mg elemental magnesium) Magnesium No Notes: Memori a Oxide 7-27 (Same as: l 13:06: Mag-Ox [place] 00 400) Magnesium oxide [id number] g elemental magnesium Dose=____m g magnesium oxide (___mg elemental magnesium) Magnesium No Notes: Memori a Oxide 7-27 (Same as: l 13:06: Mag-Ox Ben 400) Magnesium oxide [id number] g elemental magnesium Dose=____m g magnesium oxide (___mg elemental magnesium) Magnesium No Notes: Memori a Oxide 7-27 (Same as: l 13:06: Mag-Ox [place] 00 400) Magnesium oxide 273ot=590e g elemental magnesium Dose=____m g magnesium oxide (___mg elemental magnesium) Potassium No Notes: Memori a Chloride 7-27 (Same as: l 13:05: K-Dur 20) [place] "Do Not Crush" With food and full glass of water Potassium No Notes: Memori a Chloride 7-27 (Same as: l 13:05: K-Dur 20) Ben "Do Not Crush" With food and full glass of water Potassium No Notes: Memori a Chloride 7-27 (Same as: l 13:05: K-Dur 20) Ben "Do Not Crush" With food and full glass of water Potassium No Notes: Memori a Chloride 7-27 (Same as: l 13:05: K-Dur 20) [place] "Do Not Crush" With food and full glass of water heparin, No Notes: Memoria porcine 7-26 porcine l 21:00: heparin Ben 00 heparin, No Notes: Memoria porcine 7-26 porcine l 21:00: heparin [place] 00 heparin, No Notes: Memoria porcine 7-26 porcine l 21:00: heparin [place] 00 heparin, No Notes: Memoria porcine 7-26 porcine l 21:00: heparin Ben Losartan No Notes: Memoria 7-26 (Same as: l 14:00: Cozaar) [place] Losartan No Notes: Memoria 7-26 (Same as: l 14:00: Cozaar) Ben Losartan No Notes: Memoria 7-26 (Same as: l 14:00: Cozaar) Ben Losartan No Notes: Memoria 7-26 (Same as: l 14:00: Cozaar) [place] Potassium No Notes: Memori a Chloride 7-26 (Same as: l 10:42: K-Dur 20) Ben 00 "Do Not Crush" With food and full glass of water Potassium No Notes: Memori a Chloride 7-26 (Same as: l 10:42: K-Dur 20) Ben "Do Not Crush" With food and full glass of water Potassium No Notes: Memori a Chloride 7-26 (Same as: l 10:42: K-Dur 20) Ben "Do Not Crush" With food and full glass of water Potassium No Notes: Memori a Chloride 7-26 (Same as: l 10:42: K-Dur 20) Ben "Do Not Crush" With food and full glass of water Fentanyl No Notes: Memoria 7-25 (Same as: l 21:54: Sublimaze) [place] 00 Preservati ve free. Versed No Notes: Memoria 7-25 (Same as: l 21:54: Versed) [place] Fentanyl No Notes: Memoria 7-25 (Same as: l 21:54: Sublimaze) [place] 00 Preservati ve free. Versed No Notes: Memoria 7-25 (Same as: l 21:54: Versed) Fentanyl No Notes: Memoria 7-25 (Same as: l 21:54: Sublimaze) Preservati ve free. Versed No Notes: [facility]oria 7-25 (Same as: l 21:54: Versed) Fentanyl No Notes: Memoria 7-25 (Same as: l 21:54: Sublimaze) Preservati ve free. Versed No Notes: Memoria 7-25 (Same as: l 21:54: Versed) Fentanyl No Notes: Memoria 7-25 (Same as: l 20:51: Sublimaze) Preservati ve free. Midazolam No Notes: Memori a 7-25 (Same as: l 20:51: Versed) Fentanyl No Notes: Memoria 7-25 (Same as: l 20:51: Sublimaze) Preservati ve free. Midazolam No Notes: Memori a 7-25 (Same as: l 20:51: Versed) Fentanyl No Notes: Memoria 7-25 (Same as: l 20:51: Sublimaze) Preservati ve free. Midazolam No Notes: Memori a 7-25 (Same as: l 20:51: Versed) Fentanyl No Notes: Memoria 7-25 (Same as: l 20:51: Sublimaze) Preservati ve free. Midazolam No Notes: Memori a 7-25 (Same as: l 20:51: Versed) Lidocaine No Notes: Memori a Hydrochlori 7-25 (Same as: l de 10 MG/ML 18:21: Xylocaine) [place] Injectable Solution Lidocaine No Notes: Memori a Hydrochlori 7-25 (Same as: l de 10 MG/ML 18:21: Xylocaine) Injectable 00 Solution Lidocaine No Notes: Memori a Hydrochlori 7-25 (Same as: l de 10 MG/ML 18:21: Xylocaine) [place] Injectable 00 Solution Lidocaine No Notes: Memori a Hydrochlori 7-25 (Same as: l de 10 MG/ML 18:21: Xylocaine) Ben Injectable 00 Solution Vitamin B12 No Notes: Abraham joana 7-25 (Same As: l 14:00: Vitamin Ben 00 B-12) Protonix No 40 mg, Memoria 7-25 Route: l 14:00: IVP, BID, Ben 00 Dosing Weight 75, kg, Start date: 10/14/13 9:00:00, Duration: 30 day, Stop date: 11/12/13 17:00:00 Plavix 2013-0 No 75 mg, Memoria 7-25 Route: PO, l 14:00: Drug form: [place] 00 TAB, Daily, Dosing Weight 75, kg, [...] 7-25 Route: PO, l 14:00: Drug form: [place] 00 TAB, Daily, Dosing Weight 75, kg, Start date: 10/14/13 9:00:00, Duration: 30 day, Stop date: 11/12/13 9:00:00 Losartan No Notes: Memoria 7-25 (Same as: l 14:00: Cozaar) carvedilol No Notes: Memor ia 7-25 Give with l 14:00: food. (Same As: Coreg) Vitamin B12 No Notes: Abraham joana 7-25 (Same As: l 14:00: Vitamin [place] 00 B-12) Protonix No 40 mg, Memoria [...] joana 7-25 (Same as: l 13:10: Apresoline [place] 00 ) Push over 5 minutes Hydralazine No Notes: Abraham joana 7-25 (Same as: l 13:10: Apresoline Ben 00 ) Push over 5 minutes Hydralazine No Notes: Abraham joana 7-25 (Same as: l 13:10: Apresoline [place] 00 ) Push over 5 minutes Hydralazine No Notes: Abraham joana 7-25 (Same as: l 13:10: Apresoline [place] 00 ) Push over 5 minutes Venofer No Notes: Memoria 7-25 Each 5ml l 12:59: contains [place] 00 100mg elemental iron. Mix with NS (Same as:Venofer ) Administer IV only. Venofer No Notes: Memoria 7-25 Each 5ml l 12:59: contains [place] 00 100mg elemental iron. Mix with NS [...] Memoria 7-25 (Same as: l 10:52: Cozaar) [place] 00 Losartan No Notes: Memoria 7-25 (Same as: l 10:52: Cozaar) [place] Losartan No Notes: Memoria 7-25 (Same as: l 10:52: Cozaar) [place] Losartan No Notes: Memoria 7-25 (Same as: l 10:52: Cozaar) Magnesium No 2 gm, 50 Abraham joana Sulfate 7-25 mL, Route: l 10:16: IVPB, Drug form: INJ, ONCE, Dosing Weight 75, kg, [...] 7-25 mL, Route: l 10:16: IVPB, Drug [place] 00 form: INJ, ONCE, Dosing Weight 75, [...] Memoria 7-25 (Same as: l 02:37: Benadryl) Benadryl No Notes: Memoria 7-25 (Same as: l 02:37: Benadryl) Benadryl No Notes: Memoria 7-25 (Same as: l 02:37: Benadryl) Benadryl No Notes: Memoria 7-25 (Same as: l 02:37: Benadryl) metoprolol No Notes: Memor ia tartrate 7-25 (Same as: l 02:00: Lopressor) atorvastati No Notes: Baraham joana n 7-25 Same as l 02:00: [...] n 7-25 Same as l 02:00: Lipitor Potassium No [...] 7-25 not exceed l 00:36: 4 gm/day. [place] 00 (Same as: Tylenol) Tylenol No Notes: Do Memor ia 7-25 not exceed l 00:36: 4 gm/day. Ben (Same as: Tylenol) Docusate No Notes: Memoria Sodium 100 7-24 (Same as: l MG Oral 23:45: Colace) [place] Capsule (Do Not [Colace] Crush) Docusate No Notes: Memoria Sodium 100 7-24 (Same as: l MG Oral 23:45: Colace) Ben Capsule 00 (Do Not [Colace] Crush) Docusate No Notes: Memoria Sodium 100 7-24 (Same as: l MG Oral 23:45: Colace) [place] Capsule 00 (Do Not [Colace] Crush) Docusate No Notes: Memoria Sodium 100 7-24 (Same as: l MG Oral 23:45: Colace) [place] Capsule 00 (Do Not [Colace] Crush) Protonix No Notes: For Mem oria 7-24 IV push l 22:38: reconstitu Ben 00 te with 10 ml 0.9% sodium chloride and push over 2 minutes. (Same as: Protonix) Protonix No Notes: For Mem oria 7-24 IV push l 22:38: reconstitu [place] 00 te with 10 ml 0.9% sodium chloride and push over 2 minutes. (Same as: Protonix) Protonix No Notes: For Mem oria 7-24 IV push l 22:38: reconstitu Ben 00 te with 10 ml 0.9% sodium chloride and push over 2 minutes. (Same as: Protonix) Protonix No Notes: For Mem oria 7-24 IV push l 22:38: reconstitu [place] 00 te with 10 ml 0.9% sodium chloride and push over 2 minutes. (Same as: Protonix) potassium No Notes: Memori a chloride + 7-24 MUST be l Sodium 22:30: Diluted [place] Chloride 00 before use 0.9% IV 480 (Same as: mL KCl) potassium No Notes: Memori a chloride + 7-24 MUST be l Sodium 22:30: Diluted [place] Chloride 00 before use 0.9% IV 480 [...] joana 7-24 (Same as: l 21:44: Apresoline [place] 00 ) Push over 5 minutes Hydralazine No Notes: Abraham joana 7-24 (Same as: l 21:44: Apresoline Ben 00 ) Push over 5 minutes Hydralazine No Notes: Abraham joana 7-24 (Same as: l 21:44: Apresoline [place] 00 ) Push over 5 minutes Hydralazine [...] e 7-24 Tablet l 21:30: should not [place] 00 be chewed or crushed. (Same as: Protonix) Losartan No Notes: Memoria 7-24 (Same as: l 21:08: Cozaar) Ben Losartan No Notes: Memoria 7-24 (Same as: l 21:08: Cozaar) [place] Losartan No Notes: Memoria 7-24 (Same as: l 21:08: Cozaar) [place] Losartan No Notes: Memoria 7-24 (Same as: l 21:08: Cozaar) [place] potassium No Notes: Memori a chloride 7-24 (Same as: l 21:00: KCL) [place] Infuse no faster than 10 mEq/hr if given peripheral ly. potassium No Notes: Memori a chloride 7-24 (Same as: l 21:00: KCL) [place] Infuse no faster than 10 mEq/hr if [...] chew. Herm kendra (Same As: Ecotrin) Aspirin No Notes: Do Mem oria Calcium 7-24 not crush l Carbonate 20:48: or chew. Herm kendra (Same As: Ecotrin) Potassium No 40 mEq, Memor ia Chloride 7-24 Route: IV, l 20:36: ONCE, Dosing Weight 75, kg, Start date: 10/13/13 15:36:00, Stop date: 10/13/13 15:36:00 Potassium No 40 mEq, Memor ia Chloride 7-24 Route: IV, l 20:36: ONCE, Dosing Weight 75, kg, Start date: 10/13/13 15:36:00, Stop date: 10/13/13 15:36:00 Potassium No 40 mEq, Memor ia Chloride 7-24 Route: IV, l 20:36: ONCE, Dosing Weight 75, kg, Start date: 10/13/13 15:36:00, Stop date: 10/13/13 15:36:00 Potassium No 40 mEq, Memor ia Chloride 7-24 Route: IV, l 20:36: ONCE, Dosing Weight 75, kg, Start date: 10/13/13 15:36:00, Stop date: 10/13/13 15:36:00 heparin No Route: Memoria sodium, 7-24 IVP, PRN, l porcine 20:33: 1,700 [place] 1000 UNT/ML 00 unit, 1.7 Injectable mL, [...] 7-24 IVP, PRN, l porcine 20:33: 1,700 [place] 1000 UNT/ML 00 unit, 1.7 Injectable mL, Drug Solution form: INJ, PRN, Heparin Protocol, Start date: 10/13/13 15:33:00 Stop date: 11/12/13 15:32:00, 30 day heparin 0 No 500 mL, Memoria additive 7-24 Rate: [...] ia 7-24 (Same as: l 17:00: Lopressor) [place] Push over 2 minutes Metoprolol No Notes: Memor ia 7-24 (Same as: l 17:00: Lopressor) Ben Push over 2 minutes Metoprolol No Notes: Memor ia 7-24 (Same as: l 17:00: Lopressor) Ben Push over 2 minutes Metoprolol No Notes: Memor ia 7-24 (Same as: l 17:00: Lopressor) [place] Push over 2 minutes Lasix No Notes: Memoria 7-24 (Same as: l 16:00: Lasix) May Ben cause GI upset. Give with food or milk. Losartan No Notes: Memoria 7-24 (Same as: l 16:00: Cozaar) Ben 00 Lasix No Notes: Memoria 7-24 (Same as: l 16:00: Lasix) May Ben cause GI upset. Give with food or milk. Losartan No Notes: Memoria 7-24 (Same as: l 16:00: Cozaar) [place] 00 Lasix No Notes: Memoria 7-24 (Same as: l 16:00: Lasix) May [place] cause GI upset. Give with food or milk. Losartan No Notes: Memoria 7-24 (Same as: l 16:00: Cozaar) [place] 00 Lasix No Notes: Memoria 7-24 (Same as: l 16:00: Lasix) May Ben 00 cause GI upset. Give with food or [...] 7-24 IVP, PRN, l porcine 14:35: 3,400 [place] 1000 UNT/ML 00 unit, 3.4 Injectable mL, [...] 7-24 IVP, PRN, l porcine 14:35: 3,400 [place] 1000 UNT/ML 00 unit, 3.4 Injectable mL, [...] 30 day, Stop date: 11/12/13 9:34:00 heparin 2013- No 3,400 Memoria sodium, 7-24 unit, 3.4 l porcine 14:35: mL, Route: Herm kendra 5000 UNT/ML 00 IV, Drug Injectable form: INJ, Solution ONCE, Dosing Weight 75, kg, Priority: STAT, Start date: 10/13/13 9:35:00, Stop date: 10/13/13 9:35:00 clopidogrel Yes 75 mg = 1 M emoria 75 MG Oral 7-24 tab, PO, l Tablet 12:22: Daily [place] [Plavix] pantoprazol No 40 mg = 1 M emoria e 40 mg 7-24 tab, PO, l oral 12:22: Daily Ben enteric 00 coated tablet losartan 50 No 50 mg = 1 M emoria mg oral 7-24 tab, PO, l tablet 12:22: Daily [place] 00 clopidogrel Yes 75 mg = 1 M emoria 75 MG Oral 7-24 tab, PO, l Tablet 12:22: Daily [place] [Plavix] pantoprazol No 40 mg = 1 M emoria e 40 mg 7-24 tab, PO, l oral 12:22: Daily [place] enteric 00 coated tablet losartan 50 No 50 mg = 1 M emoria mg oral 7-24 tab, PO, l tablet 12:22: Daily [place] 00 clopidogrel Yes 75 mg = 1 M emoria 75 MG Oral 7-24 tab, PO, l Tablet 12:22: Daily [place] [Plavix] pantoprazol No 40 mg = 1 M emoria e 40 mg 7-24 tab, PO, l oral 12:22: Daily [place] enteric 00 coated tablet losartan 50 No 50 mg = 1 M emoria mg oral 7-24 tab, PO, l tablet 12:22: Daily [place] 00 clopidogrel Yes 75 mg = 1 M emoria 75 MG Oral 7-24 tab, PO, l Tablet 12:22: Daily Ben [Plavix] pantoprazol No 40 mg = 1 M emoria e 40 mg 7-24 tab, PO, l oral 12:22: Daily Ben enteric 00 coated tablet losartan 50 No 50 mg = 1 M emoria mg oral 7-24 tab, PO, l tablet 12:22: Daily Ben predniSONE Yes 10 mg = 1 Me moria 10 mg oral 7-24 tab, PO, l tablet 12:21: Daily Ben predniSONE Yes 10 mg = 1 Me moria 10 mg oral 7-24 tab, PO, l tablet 12:21: Daily Ben predniSONE Yes 10 mg = 1 Me moria 10 mg oral 7-24 tab, PO, l tablet 12:21: Daily Ben predniSONE Yes 10 mg = 1 Me moria 10 mg oral 7-24 tab, PO, l tablet 12:21: Daily [place] 00 Furosemide Yes 20 mg = 1 [...] 7-24 tab, PO, l Tablet 12:20: Daily [place] [Lasix] Metoprolol No 50 mg = 1 Me moria Tartrate 50 7-24 tab, PO, l mg oral 12:20: BID [place] tablet Furosemide Yes 20 mg = 1 Me moria 20 MG Oral 7-24 tab, PO, l Tablet 12:20: Daily Ben [Lasix] Metoprolol No 50 mg = 1 Me moria Tartrate 50 7-24 tab, PO, l mg oral 12:20: BID Ben tablet metoprolol No Notes: Memor ia extended -24 (Same as: l release 10:23: Toprol XL) [...] 7-24 Rate: 125 l 0.154 08:12: ml/hr, [place] MEQ/ML 00 Infuse Injectable over: 8 Solution hr, Route: IV, Dosing Weight 75 kg, Total Volume: 1,000, Start date: 10/13/13 3:12:00, Duration: 30 day, Stop date: 11/12/13 3:11:00 Saline No Notes: Memoria Flush 0.9% 10-13 (Same as: l 08:12: BD Ben 00 Posiflush) Sodium 2013- No 1,000 mL, Memori a Chloride 10-13 Rate: 125 l 0.154 08:12: ml/hr, Ben MEQ/ML 00 Infuse Injectable over: 8 Solution hr, Route: IV, Dosing Weight 75 kg, Total Volume: 1,000, Start date: 10/13/13 3:12:00, Duration: 30 day, Stop date: 11/12/13 3:11:00 Saline No Notes: Memoria Flush 0.9% 10-13 (Same as: l 08:12: BD [place] 00 Posiflush) amLODIPine amLODIPine No 1{table QD amLODIPine Besylate 10 Besylate 10 t} Besylate MG MG 10 MG Aspirin 81 Aspirin 81 No 1{table QD Aspirin 81 81 MG 81 MG t} 81 MG Fluticasone Fluticasone No 1{spray QD Fluticason Propionate Propionate _in_eac e 50 MCG/ACT 50 MCG/ACT h_nostr Propionate il} 50 MCG/ACT Medrol 4 MG Medrol 4 MG No QD Medrol 4 MG Crestor 10 Crestor 10 No 1{table QD Crestor 10 MG MG t} MG Catapres Catapres No 1{table TID Catapres 0.1 MG 0.1 MG t_at_be 0.1 MG dtime} Losartan Losartan No 1{table QD Losartan Potassium Potassium t} Potassium 50 MG 50 MG 50 MG Ferrous Ferrous No 1{table QD Ferrous Sulfate 325 Sulfate 325 t} Sulfate (65 Fe) MG (65 Fe) MG 325 (65 Fe) MG Clopidogrel Clopidogrel No 1{table QD Clopidogre Bisulfate Bisulfate t} l 75 MG 75 MG Bisulfate 75 MG Metoprolol Metoprolol No 1{table BID Metoprolol Tartrate 25 Tartrate 25 t_with_ Tartrate MG MG food} 25 MG Rosuvastati Rosuvastati No 1{table QD Rosuvastat n Calcium n Calcium t} in Calcium 20 MG 20 MG 20 MG Linzess 145 Linzess 145 No 1{capsu QD Linzess MCG MCG le} 145 MCG Plavix 75 Plavix 75 No 1{table QD Plavix 75 MG MG t} MG Pantoprazol Pantoprazol No Pantoprazo e Sodium 40 e Sodium 40 le Sodium 40 Carvedilol Carvedilol No Carvedilol 3.125 MG 3.125 MG 3.125 MG amLODIPine amLODIPine No 1{table QD amLODIPine Besylate 10 Besylate 10 t} Besylate MG MG 10 MG Aspirin 81 Aspirin 81 No 1{table QD Aspirin 81 81 MG 81 MG t} 81 MG Crestor 10 Crestor 10 No 1{table QD Crestor 10 MG MG t} MG Medrol 4 MG Medrol 4 MG No QD Medrol 4 MG Pantoprazol Pantoprazol No 1{table QD Pantoprazo e Sodium 40 e Sodium 40 t} le Sodium MG MG 40 MG Catapres Catapres No 1{table TID Catapres 0.1 MG 0.1 MG t_at_be 0.1 MG dtime} Losartan Losartan No 1{table QD Losartan Potassium Potassium t} Potassium 50 MG 50 MG 50 MG Ferrous Ferrous No 1{table QD Ferrous Sulfate 325 Sulfate 325 t} Sulfate (65 Fe) MG (65 Fe) MG 325 (65 Fe) MG Fluticasone Fluticasone No 1{spray QD Fluticason Propionate Propionate _in_eac e 50 MCG/ACT 50 MCG/ACT h_nostr Propionate il} 50 MCG/ACT Metoprolol Metoprolol No 1{table BID Metoprolol Tartrate 25 Tartrate 25 t_with_ Tartrate MG MG food} 25 MG Rosuvastati Rosuvastati No 1{table QD Rosuvastat n Calcium n Calcium t} in Calcium 20 MG 20 MG 20 MG Linzess 145 Linzess 145 No 1{capsu QD Linzess MCG MCG le} 145 MCG Plavix 75 Plavix 75 No 1{table QD Plavix 75 MG MG t} MG Clopidogrel Clopidogrel No 1{table QD Clopidogre Bisulfate Bisulfate t} l 75 MG 75 MG Bisulfate 75 MG Carvedilol Carvedilol No Carvedilol 3.125 MG 3.125 MG 3.125 MG Catapres Catapres No 1{table TID Catapres 0.1 MG 0.1 MG t_at_be 0.1 MG dtime} Aspirin 81 Aspirin 81 No 1{table QD Aspirin 81 81 MG 81 MG t} 81 MG Plavix 75 Plavix 75 No 1{table QD Plavix 75 MG MG t} MG Clopidogrel Clopidogrel No 1{table QD Clopidogre Bisulfate Bisulfate t} l 75 MG 75 MG Bisulfate 75 MG Pantoprazol Pantoprazol No Pantoprazo e Sodium 40 e Sodium 40 le Sodium 40 Metoprolol Metoprolol No 1{table BID Metoprolol Tartrate 25 Tartrate 25 t_with_ Tartrate MG MG food} 25 MG Rosuvastati Rosuvastati No 1{table QD Rosuvastat n Calcium n Calcium t} in Calcium 20 MG 20 MG 20 MG Losartan Losartan No 1{table QD Losartan Potassium Potassium t} Potassium 50 MG 50 MG 50 MG Carvedilol Carvedilol No Carvedilol 3.125 MG 3.125 MG 3.125 MG Crestor 10 Crestor 10 No 1{table QD Crestor 10 MG MG t} MG Ferrous Ferrous No 1{table QD Ferrous Sulfate 325 Sulfate 325 t} Sulfate (65 Fe) MG (65 Fe) MG 325 (65 Fe) MG Medrol 4 MG Medrol 4 MG No QD Medrol 4 MG Fluticasone Fluticasone No 1{spray QD Fluticason Propionate Propionate _in_eac e 50 MCG/ACT 50 MCG/ACT h_nostr Propionate il} 50 MCG/ACT Linzess 145 Linzess 145 No 1{capsu QD Linzess MCG MCG le} 145 MCG amLODIPine amLODIPine No 1{table QD amLODIPine Besylate 10 Besylate 10 t} Besylate MG MG 10 MG Pantoprazol Pantoprazol No Pantoprazo e Sodium 40 e Sodium 40 le Sodium 40 Crestor 10 Crestor 10 No 1{table QD Crestor 10 MG MG t} MG amLODIPine amLODIPine No 1{table QD amLODIPine Besylate 10 Besylate 10 t} Besylate MG MG 10 MG Plavix 75 Plavix 75 No 1{table QD Plavix 75 MG MG t} MG Vitamin B12 Vitamin B12 No Vitamin B12 Iron Iron No Iron Rosuvastati Rosuvastati No 1{table QD Rosuvastat n Calcium n Calcium t} in Calcium 20 MG 20 MG 20 MG Ferrous Ferrous No 1{table QD Ferrous Sulfate 325 Sulfate 325 t} Sulfate (65 Fe) MG (65 Fe) MG 325 (65 Fe) MG Fluticasone Fluticasone No 1{spray QD Fluticason Propionate Propionate _in_eac e 50 MCG/ACT 50 MCG/ACT h_nostr Propionate il} 50 MCG/ACT Medrol 4 MG Medrol 4 MG No QD Medrol 4 MG Catapres Catapres No 1{table TID Catapres 0.1 MG 0.1 MG t_at_be 0.1 MG dtime} Linzess 145 Linzess 145 No 1{capsu QD Linzess MCG MCG le} 145 MCG Losartan Losartan No 1{table QD Losartan Potassium Potassium t} Potassium 100 MG 100 MG 100 MG Carvedilol Carvedilol No 1{table BID Carvedilol 25 MG 25 MG t_with_ 25 MG food} Clopidogrel Clopidogrel No 1{table QD Clopidogre Bisulfate Bisulfate t} l 75 MG 75 MG Bisulfate 75 MG Aspirin 81 Aspirin 81 No 1{table QD Aspirin 81 81 MG 81 MG t} 81 MG amLODIPine amLODIPine No 1{table QD amLODIPine Besylate 10 Besylate 10 t} Besylate MG MG 10 MG Ferrous Ferrous No 1{table QD Ferrous Sulfate 325 Sulfate 325 t} Sulfate (65 Fe) MG (65 Fe) MG 325 (65 Fe) MG Plavix 75 Plavix 75 No 1{table QD Plavix 75 MG MG t} MG Linzess 145 Linzess 145 No 1{capsu QD Linzess MCG MCG le} 145 MCG Catapres Catapres No 1{table TID Catapres 0.1 MG 0.1 MG t_at_be 0.1 MG dtime} Rosuvastati Rosuvastati No 1{table QD Rosuvastat n Calcium n Calcium t} in Calcium 20 MG 20 MG 20 MG Losartan Losartan No 1{table QD Losartan Potassium Potassium t} Potassium 100 MG 100 MG 100 MG Carvedilol Carvedilol No 1{table BID Carvedilol 25 MG 25 MG t_with_ 25 MG food} Vitamin B12 Vitamin B12 No Vitamin B12 Medrol 4 MG Medrol 4 MG No QD Medrol 4 MG Pantoprazol Pantoprazol No Pantoprazo e Sodium 40 e Sodium 40 le Sodium 40 Aspirin 81 Aspirin 81 No 1{table QD Aspirin 81 81 MG 81 MG t} 81 MG Clopidogrel Clopidogrel No 1{table QD Clopidogre Bisulfate Bisulfate t} l 75 MG 75 MG Bisulfate 75 MG Iron Iron No Iron Crestor 10 Crestor 10 No 1{table QD Crestor 10 MG MG t} MG Fluticasone Fluticasone No 1{spray QD Fluticason Propionate Propionate _in_eac e 50 MCG/ACT 50 MCG/ACT h_nostr Propionate il} 50 MCG/ACT Losartan Losartan No 1{table QD Losartan Potassium Potassium t} Potassium 100 MG 100 MG 100 MG amLODIPine amLODIPine No 1{table QD amLODIPine Besylate 10 Besylate 10 t} Besylate MG MG 10 MG Pantoprazol Pantoprazol No Pantoprazo e Sodium 40 e Sodium 40 le Sodium 40 Iron 325 Iron 325 No 1{table QD Iron 325 (65 Fe) MG (65 Fe) MG t} (65 Fe) MG Clopidogrel Clopidogrel No 1{table QD Clopidogre Bisulfate Bisulfate t} l 75 MG 75 MG Bisulfate 75 MG Rosuvastati Rosuvastati No 1{table QD Rosuvastat n Calcium n Calcium t} in Calcium 20 MG 20 MG 20 MG Aspirin 81 Aspirin 81 No 1{table QD Aspirin 81 81 MG 81 MG t} 81 MG Carvedilol Carvedilol No 1{table BID Carvedilol 25 MG 25 MG t_with_ 25 MG food} SandoSTATIN SandoSTATIN No SandoSTATI LAR Depot LAR Depot N LAR 30 MG 30 MG Depot 30 MG Clopidogrel Clopidogrel No Clopidogre Bisulfate Bisulfate l 75 MG 75 MG Bisulfate 75 MG Rosuvastati Rosuvastati No 1{table QD Rosuvastat n Calcium n Calcium t} in Calcium 20 MG 20 MG 20 MG Pantoprazol Pantoprazol No Pantoprazo e Sodium 40 e Sodium 40 le Sodium 40 amLODIPine amLODIPine No 1{table QD amLODIPine Besylate 10 Besylate 10 t} Besylate MG MG 10 MG Carvedilol Carvedilol No 1{table BID Carvedilol 25 MG 25 MG t_with_ 25 MG food} SandoSTATIN SandoSTATIN No SandoSTATI LAR Depot LAR Depot N LAR 30 MG 30 MG Depot 30 MG Aspirin 81 Aspirin 81 No 1{table QD Aspirin 81 81 MG 81 MG t} 81 MG Iron 325 Iron 325 No 1{table QD Iron 325 (65 Fe) MG (65 Fe) MG t} (65 Fe) MG amLODIPine amLODIPine No 1{table QD amLODIPine Besylate 10 Besylate 10 t} Besylate MG MG 10 MG Carvedilol Carvedilol No 1{table BID Carvedilol 25 MG 25 MG t_with_ 25 MG food} Iron 325 Iron 325 No 1{table QD Iron 325 (65 Fe) MG (65 Fe) MG t} (65 Fe) MG Pantoprazol Pantoprazol No Pantoprazo e Sodium 40 e Sodium 40 le Sodium 40 Rosuvastati Rosuvastati No 1{table QD Rosuvastat n Calcium n Calcium t} in Calcium 20 MG 20 MG 20 MG Pantoprazol Pantoprazol No Pantoprazo e Sodium 40 e Sodium 40 le Sodium 40 SandoSTATIN SandoSTATIN No SandoSTATI LAR Depot LAR Depot N LAR 30 MG 30 MG Depot 30 MG Clopidogrel Clopidogrel No Clopidogre Bisulfate Bisulfate l 75 MG 75 MG Bisulfate 75 MG Aspirin 81 Aspirin 81 No 1{table QD Aspirin 81 81 MG 81 MG t} 81 MG Rosuvastati Rosuvastati No 1{table QD Rosuvastat n Calcium n Calcium t} in Calcium 20 MG 20 MG 20 MG Iron 325 Iron 325 No 1{table QD Iron 325 (65 Fe) MG (65 Fe) MG t} (65 Fe) MG Clopidogrel Clopidogrel No Clopidogre Bisulfate Bisulfate l 75 MG 75 MG Bisulfate 75 MG amLODIPine amLODIPine No 1{table QD amLODIPine Besylate 10 Besylate 10 t} Besylate MG MG 10 MG SandoSTATIN SandoSTATIN No SandoSTATI LAR Depot LAR Depot N LAR 30 MG 30 MG Depot 30 MG Pantoprazol Pantoprazol No Pantoprazo e Sodium 40 e Sodium 40 le Sodium 40 glipiZIDE glipiZIDE No 1{table QD glipiZIDE ER 2.5 MG ER 2.5 MG t_with_ ER 2.[address]} Pantoprazol Pantoprazol No Pantoprazo e Sodium 40 e Sodium 40 le Sodium 40 Aspirin 81 Aspirin 81 No 1{table QD Aspirin 81 81 MG 81 MG t} 81 MG Pantoprazol Pantoprazol No Pantoprazo e Sodium 40 e Sodium 40 le Sodium 40 amLODIPine amLODIPine No 1{table QD amLODIPine Besylate 10 Besylate 10 t} Besylate MG MG 10 MG Clopidogrel Clopidogrel No Clopidogre Bisulfate Bisulfate l 75 MG 75 MG Bisulfate 75 MG Aspirin 81 Aspirin 81 No 1{table QD Aspirin 81 81 MG 81 MG t} 81 MG SandoSTATIN SandoSTATIN No SandoSTATI LAR Depot LAR Depot N LAR 30 MG 30 MG Depot 30 MG Iron 325 Iron 325 No 1{table QD Iron 325 (65 Fe) MG (65 Fe) MG t} (65 Fe) MG Rosuvastati Rosuvastati No 1{table QD Rosuvastat n Calcium n Calcium t} in Calcium 20 MG 20 MG 20 MG Pantoprazol Pantoprazol No Pantoprazo e Sodium 40 e Sodium 40 le Sodium 40 glipiZIDE glipiZIDE No 1{table QD glipiZIDE ER 2.5 MG ER 2.5 MG t_with_ ER 2.[address]} Pantoprazol Pantoprazol No Pantoprazo e Sodium 40 e Sodium 40 le Sodium 40 amLODIPine amLODIPine No 1{table QD amLODIPine Besylate 10 Besylate 10 t} Besylate MG MG 10 MG Rosuvastati Rosuvastati No 1{table QD Rosuvastat n Calcium n Calcium t} in Calcium 20 MG 20 MG 20 MG Aspirin 81 Aspirin 81 No 1{table QD Aspirin 81 81 MG 81 MG t} 81 MG SandoSTATIN SandoSTATIN No SandoSTATI LAR Depot LAR Depot N LAR 30 MG 30 MG Depot 30 MG Pantoprazol Pantoprazol No Pantoprazo e Sodium 40 e Sodium 40 le Sodium 40 Clopidogrel Clopidogrel No Clopidogre Bisulfate Bisulfate l 75 MG 75 MG Bisulfate 75 MG Iron 325 Iron 325 No 1{table QD Iron 325 (65 Fe) MG (65 Fe) MG t} (65 Fe) MG Aspirin 81 Aspirin 81 No 1{table QD Aspirin 81 81 MG 81 MG t} 81 MG Clopidogrel Clopidogrel No Clopidogre Bisulfate Bisulfate l 75 MG 75 MG Bisulfate 75 MG Pantoprazol Pantoprazol No Pantoprazo e Sodium 40 e Sodium 40 le Sodium 40 SandoSTATIN SandoSTATIN No SandoSTATI LAR Depot LAR Depot N LAR 30 MG 30 MG Depot 30 MG amLODIPine amLODIPine No 1{table QD amLODIPine Besylate 10 Besylate 10 t} Besylate MG MG 10 MG Iron 325 Iron 325 No 1{table QD Iron 325 (65 Fe) MG (65 Fe) MG t} (65 Fe) MG Rosuvastati Rosuvastati No 1{table QD Rosuvastat n Calcium n Calcium t} in Calcium 20 MG 20 MG 20 MG Pantoprazol Pantoprazol No Pantoprazo e Sodium 40 e Sodium 40 le Sodium 40 Aspirin 81 Aspirin 81 No 1{table QD Aspirin 81 81 MG 81 MG t} 81 MG Clopidogrel Clopidogrel No Clopidogre Bisulfate Bisulfate l 75 MG 75 MG Bisulfate 75 MG SandoSTATIN SandoSTATIN No SandoSTATI LAR Depot LAR Depot N LAR 30 MG 30 MG Depot 30 MG Rosuvastati Rosuvastati No 1{table QD Rosuvastat n Calcium n Calcium t} in Calcium 20 MG 20 MG 20 MG amLODIPine amLODIPine No 1{table QD amLODIPine Besylate 10 Besylate 10 t} Besylate MG MG 10 MG Pantoprazol Pantoprazol No Pantoprazo e Sodium 40 e Sodium 40 le Sodium 40 Iron 325 Iron 325 No 1{table QD Iron 325 (65 Fe) MG (65 Fe) MG t} (65 Fe) MG Pantoprazol Pantoprazol No Pantoprazo e Sodium 40 e Sodium 40 le Sodium 40 Aspirin 81 Aspirin 81 No 1{table QD Aspirin 81 81 MG 81 MG t} 81 MG Clopidogrel Clopidogrel No Clopidogre Bisulfate Bisulfate l 75 MG 75 MG Bisulfate 75 MG SandoSTATIN SandoSTATIN No SandoSTATI LAR Depot LAR Depot N LAR 30 MG 30 MG Depot 30 MG Rosuvastati Rosuvastati No 1{table QD Rosuvastat n Calcium n Calcium t} in Calcium 20 MG 20 MG 20 MG amLODIPine amLODIPine No 1{table QD amLODIPine Besylate 10 Besylate 10 t} Besylate MG MG 10 MG Pantoprazol Pantoprazol No Pantoprazo e Sodium 40 e Sodium 40 le Sodium 40 Iron 325 Iron 325 No 1{table QD Iron 325 (65 Fe) MG (65 Fe) MG t} (65 Fe) MG Pantoprazol Pantoprazol No Pantoprazo e Sodium 40 e Sodium 40 le Sodium 40 Aspirin 81 Aspirin 81 No 1{table QD Aspirin 81 81 MG 81 MG t} 81 MG Clopidogrel Clopidogrel No Clopidogre Bisulfate Bisulfate l 75 MG 75 MG Bisulfate 75 MG SandoSTATIN SandoSTATIN No SandoSTATI LAR Depot LAR Depot N LAR 30 MG 30 MG Depot 30 MG Rosuvastati Rosuvastati No 1{table QD Rosuvastat n Calcium n Calcium t} in Calcium 20 MG 20 MG 20 MG amLODIPine amLODIPine No 1{table QD amLODIPine Besylate 10 Besylate 10 t} Besylate MG MG 10 MG Pantoprazol Pantoprazol No Pantoprazo e Sodium 40 e Sodium 40 le Sodium 40 Iron 325 Iron 325 No 1{table QD Iron 325 (65 Fe) MG (65 Fe) MG t} (65 Fe) MG Pantoprazol Pantoprazol No Pantoprazo e Sodium 40 e Sodium 40 le Sodium 40 Aspirin 81 Aspirin 81 No 1{table QD Aspirin 81 81 MG 81 MG t} 81 MG Clopidogrel Clopidogrel No Clopidogre Bisulfate Bisulfate l 75 MG 75 MG Bisulfate 75 MG SandoSTATIN SandoSTATIN No SandoSTATI LAR Depot LAR Depot N LAR 30 MG 30 MG Depot 30 MG Rosuvastati Rosuvastati No 1{table QD Rosuvastat n Calcium n Calcium t} in Calcium 20 MG 20 MG 20 MG amLODIPine amLODIPine No 1{table QD amLODIPine Besylate 10 Besylate 10 t} Besylate MG MG 10 MG Pantoprazol Pantoprazol No Pantoprazo e Sodium 40 e Sodium 40 le Sodium 40 Iron 325 Iron 325 No 1{table QD Iron 325 (65 Fe) MG (65 Fe) MG t} (65 Fe) MG Pantoprazol Pantoprazol No Pantoprazo e Sodium 40 e Sodium 40 le Sodium 40 SandoSTATIN SandoSTATIN No SandoSTATI LAR Depot LAR Depot N LAR 30 MG 30 MG Depot 30 MG Rosuvastati Rosuvastati No 1{table QD Rosuvastat n Calcium n Calcium t} in Calcium 20 MG 20 MG 20 MG Clopidogrel Clopidogrel No Clopidogre Bisulfate Bisulfate l 75 MG 75 MG Bisulfate 75 MG amLODIPine amLODIPine No 1{table QD amLODIPine Besylate 10 Besylate 10 t} Besylate MG MG 10 MG Pantoprazol Pantoprazol No Pantoprazo e Sodium 40 e Sodium 40 le Sodium 40 Aspirin 81 Aspirin 81 No 1{table QD Aspirin 81 81 MG 81 MG t} 81 MG Pantoprazol Pantoprazol No Pantoprazo e Sodium 40 e Sodium 40 le Sodium 40 Iron 325 Iron 325 No 1{table QD Iron 325 (65 Fe) MG (65 Fe) MG t} (65 Fe) MG Pantoprazol Pantoprazol No Pantoprazo e Sodium 40 e Sodium 40 le Sodium 40 Rosuvastati Rosuvastati No 1{table QD Rosuvastat n Calcium n Calcium t} in Calcium 20 MG 20 MG 20 MG Clopidogrel Clopidogrel No Clopidogre Bisulfate Bisulfate l 75 MG 75 MG Bisulfate 75 MG Aspirin 81 Aspirin 81 No 1{table QD Aspirin 81 81 MG 81 MG t} 81 MG Pantoprazol Pantoprazol No Pantoprazo e Sodium 40 e Sodium 40 le Sodium 40 amLODIPine amLODIPine No 1{table QD amLODIPine Besylate 10 Besylate 10 t} Besylate MG MG 10 MG Losartan Losartan No 1{table QD Losartan Potassium Potassium t} Potassium 100 MG 100 MG 100 MG SandoSTATIN SandoSTATIN No SandoSTATI LAR [place]ot LAR [place]ot N LAR 30 MG 30 MG Depot 30 MG Iron 325 Iron 325 No 1{table QD Iron 325 (65 Fe) MG (65 Fe) MG t} (65 Fe) MG Clopidogrel Clopidogrel No QD Bisulfate Bisulfate 75 MG 75 MG Amoxicillin Amoxicillin No 1{table BID -Pot -Pot t} Clavulanate Clavulanate 875-125 MG 875-125 MG Losartan Losartan No 1{table QD Potassium Potassium t} 100 MG 100 MG Rosuvastati Rosuvastati No 1{table QD n Calcium n Calcium t} 20 MG 20 MG SandoSTATIN SandoSTATIN No LAR Depot LAR Depot 30 MG 30 MG Pantoprazol Pantoprazol No e Sodium 40 e Sodium 40 Aspirin 81 Aspirin 81 No 1{table QD 81 MG 81 MG t} Iron 325 Iron 325 No 1{table QD (65 Fe) MG (65 Fe) MG t} Pantoprazol Pantoprazol No e Sodium 40 e Sodium 40 amLODIPine amLODIPine No 1{table QD Besylate 10 Besylate 10 t} MG MG Aspirin 81 Aspirin 81 No 1{table QD Aspirin 81 81 MG 81 MG t} 81 MG Clopidogrel Clopidogrel No Clopidogre Bisulfate Bisulfate l 75 MG 75 MG Bisulfate 75 MG SandoSTATIN SandoSTATIN No SandoSTATI LAR [place]ot LAR [place] N LAR 30 MG 30 MG Depot 30 MG Rosuvastati Rosuvastati No 1{table QD Rosuvastat n Calcium n Calcium t} in Calcium 20 MG 20 MG 20 MG amLODIPine amLODIPine No 1{table QD amLODIPine Besylate 10 Besylate 10 t} Besylate MG MG 10 MG Pantoprazol Pantoprazol No Pantoprazo e Sodium 40 e Sodium 40 le Sodium 40 Iron 325 Iron 325 No 1{table QD Iron 325 (65 Fe) MG (65 Fe) MG t} (65 Fe) MG Pantoprazol Pantoprazol No Pantoprazo e Sodium 40 e Sodium 40 le Sodium 40 Aspirin 81 Aspirin 81 No 1{table QD Aspirin 81 81 MG 81 MG t} 81 MG Clopidogrel Clopidogrel No Clopidogre Bisulfate Bisulfate l 75 MG 75 MG Bisulfate 75 MG SandoSTATIN SandoSTATIN No SandoSTATI LAR [place]ot LAR [place] N LAR 30 MG 30 MG Depot 30 MG Rosuvastati Rosuvastati No 1{table QD Rosuvastat n Calcium n Calcium t} in Calcium 20 MG 20 MG 20 MG amLODIPine amLODIPine No 1{table QD amLODIPine Besylate 10 Besylate 10 t} Besylate MG MG 10 MG Pantoprazol Pantoprazol No Pantoprazo e Sodium 40 e Sodium 40 le Sodium 40 Iron 325 Iron 325 No 1{table QD Iron 325 (65 Fe) MG (65 Fe) MG t} (65 Fe) MG Pantoprazol Pantoprazol No Pantoprazo e Sodium 40 e Sodium 40 le Sodium 40 Immunizations Ordered Immunization Filled Immunization Date Status Commen ts Source Name Name Pfizer COVID-19 Vaccine Pfizer COVID-19 2020-08-27 Completed Vaccine 00:00:00 Pfizer COVID-19 Vaccine Pfizer COVID-19 2020-08-06 Completed Vaccine 00:00:00 Vital Signs Vital Name Observation Time Observation Value Comments Source Systolic blood 2022-06-09 14:22:00 171 mm[Hg] Univer sity [facility] Diastolic blood 2022-06-09 14:22:00 85 mm[Hg] Unive [facility] Heart rate 2022-06-09 14:22:00 78 /min [facility] Oxygen saturation in 2022-06-09 14:22:00 100 /min [facility] Arterial blood by [facility] Pulse oximetry Branch Body temperature 2022-06-09 14:20:00 37.11 Annette [facility] Respiratory rate 2022-06-09 14:20:00 16 /min [facility] Body height 2022-06-09 14:20:00 152.4 cm [facility] Body weight 2022-06-09 14:20:00 77.111 kg [facility] BMI 2022-06-09 14:20:00 33.20 kg/m2 [facility] height 2022-04-30 13:00:00 60 [in_i] [facility] weight 2022-04-30 13:00:00 167 [lb_av] [facility] temperature 2022-04-30 13:00:00 98.1 [degF] [facility] bmi 2022-04-30 13:00:00 32.61 kg/m2 [facility] oximetry 2022-04-30 13:00:00 97 % Common [facility] respiratory rate 2022-04-30 13:00:00 16 /min [facility] blood pressure 2022-04-30 13:00:00 130 mm[Hg] [facility] blood pressure 2022-04-30 13:00:00 72 mm[Hg] [facility] height 2022-02-05 09:30:00 60 [in_i] Common [facility] weight 2022-02-05 09:30:00 169.7 [lb_av] [facility] temperature 2022-02-05 09:30:00 97.9 [degF] Common [facility] bmi 2022-02-05 09:30:00 33.14 kg/m2 Common [facility] blood pressure 2022-02-05 09:30:00 127 mm[Hg] [facility] blood pressure 2022-02-05 09:30:00 72 mm[Hg] [facility] Systolic blood 2022-01-13 13:12:00 160 mm[Hg] Univer [facility]ity [facility] Diastolic blood 2022-01-13 13:12:00 97 mm[Hg] Unive rsity of pressure [facility] Heart rate 2022-01-13 13:12:00 75 /min [facility] Respiratory rate 2022-01-13 13:12:00 18 /min Univ ersity of [facility] Body height 2022-01-13 13:12:00 152.4 cm [facility] Body weight 2022-01-13 13:12:00 75.66 kg [facility] BMI 2022-01-13 13:12:00 32.58 kg/m2 [facility] Oxygen saturation in 2022-01-13 13:12:00 98 /min [facility] Arterial blood by [facility] Pulse oximetry Branch height 2021-12-18 10:00:00 60 [in_i] Common [facility] weight 2021-12-18 10:00:00 163.6 [lb_av] [facility] temperature 2021-12-18 10:00:00 98.7 [degF] [facility] bmi 2021-12-18 10:00:00 31.95 kg/m2 [facility] oximetry 2021-12-18 10:00:00 97 % [facility] respiratory rate 2021-12-18 10:00:00 16 /min [facility] blood pressure 2021-12-18 10:00:00 130 mm[Hg] Common [facility] systolic [facility] blood pressure 2021-12-18 10:00:00 70 mm[Hg] [facility] diastolic [facility] Systolic blood 2021-12-16 13:12:00 152 mm[Hg] Univer sity [facility] Diastolic blood 2021-12-16 13:12:00 91 mm[facility]Hg] [facility] 2021-12-16 13:10:00 31.83 kg/m2 [facility] Oxygen saturation in 2021-12-16 13:10:00 99 /min [facility] Arterial blood by [facility] oxim[facility] Branch Heart rate 2021-12-16 13:10:00 73 /min [facility] Body temperature 2021-12-16 13:10:00 36.44 Annette [facility] 2021-12-16 13:10:00 18 /min [facility] Body height 2021-12-16 13:10:00 152.4 cm [facility] Body weight 2021-12-16 13:10:00 73.936 kg [facility] height 2021-09-06 15:00:00 60.00 [in_i] [facility] weight 2021-09-06 15:00:00 164 [lb_av] [facility] temperature 2021-09-06 15:00:00 98.3 [degF] [facility] bmi 2021-09-06 15:00:00 32.03 kg/m2 [facility] oximetry 2021-09-06 15:00:00 96 % [facility] respiratory rate 2021-09-06 15:00:00 18 /min [facility] blood pressure 2021-09-06 15:00:00 122 mm[Hg] Common [facility] systolic [facility] blood pressure 2021-09-06 15:00:00 70 mm[Hg] [facility] diastolic [facility] height 2021-08-02 08:40:00 60.00 [in_i] [facility] weight 2021-08-02 08:40:00 161.6 [lb_av] [facility] temperature 2021-08-02 08:40:00 97.8 [degF] [facility] bmi 2021-08-02 08:40:00 31.56 kg/m2 [facility] oximetry 2021-08-02 08:40:00 97 % [facility] respiratory rate 2021-08-02 08:40:00 16 /min [facility] height 2021-07-12 08:20:00 60.00 [in_i] Common [facility] weight 2021-07-12 08:20:00 163.6 [lb_av] [facility] temperature 2021-07-12 08:20:00 97.8 [degF] [facility] bmi 2021-07-12 08:20:00 31.95 kg/m2 [facility] oximetry 2021-07-12 08:20:00 95 % [facility] respiratory rate 2021-07-12 08:20:00 16 /min [facility] blood pressure 2021-07-12 08:20:00 140 mm[Hg] [facility] blood pressure 2021-07-12 08:20:00 82 mm[Hg] [facility] height 2021-05-02 09:40:00 60.00 [in_i] Common [facility] weight 2021-05-02 09:40:00 169.6 [lb_av] Common [facility] temperature 2021-05-02 09:40:00 97.2 [degF] Common [facility] bmi 2021-05-02 09:40:00 33.12 kg/m2 [facility] oximetry 2021-05-02 09:40:00 99 % [facility] respiratory rate 2021-05-02 09:40:00 16 /min [facility] blood pressure 2021-05-02 09:40:00 130 mm[Hg] [facility] blood pressure 2021-05-02 09:40:00 71 mm[Hg] [facility] height 2021-04-24 10:40:00 60.00 [in_i] Common [facility] weight 2021-04-24 10:40:00 167 [lb_av] Common [facility] temperature 2021-04-24 10:40:00 97.9 [degF] [facility] bmi 2021-04-24 10:40:00 32.61 kg/m2 Common [facility] oximetry 2021-04-24 10:40:00 97 % Common [facility] respiratory rate 2021-04-24 10:40:00 16 /min [facility] blood pressure 2021-04-24 10:40:00 114 mm[Hg] [facility] blood pressure 2021-04-24 10:40:00 70 mm[Hg] [facility] height 2021-04-03 10:00:00 60.00 [in_i] [facility] weight 2021-04-03 10:00:00 169 [lb_av] [facility] temperature 2021-04-03 10:00:00 98.7 [degF] [facility] bmi 2021-04-03 10:00:00 33 kg/m2 [facility] height 2021-03-26 13:00:00 60.00 [in_i] [facility] weight 2021-03-26 13:00:00 169.6 [lb_av] [facility] temperature 2021-03-26 13:00:00 97.7 [degF] [facility] bmi 2021-03-26 13:00:00 33.12 kg/m2 [facility] oximetry 2021-03-26 13:00:00 98 % [facility] respiratory rate 2021-03-26 13:00:00 18 /min [facility] blood pressure 2021-03-26 13:00:00 136 mm[Hg] [facility] - systolic [facility] blood pressure 2021-03-26 13:00:00 80 mm[Hg] [facility] - diastolic [facility] Systolic blood 2021-03-18 15:48:00 149 mm[Hg] Univer sity of pressure [facility] Diastolic blood 2021-03-18 15:48:00 84 mm[Hg] Unive rsity of pressure [facility] Heart rate 2021-03-18 15:45:00 64 /min [facility] Body temperature 2021-03-18 15:45:00 36.5 Annette [facility] Body height 2021-03-18 15:45:00 152.4 cm [facility] Body weight 2021-03-18 15:45:00 76.975 kg [facility] BMI 2021-03-18 15:45:00 33.14 kg/m2 [facility] Oxygen saturation in 2021-03-18 15:45:00 98 /min [facility] Arterial blood by [facility] Pulse oximetry Branch height 2021-02-05 13:40:00 60.00 [in_i] [facility] weight 2021-02-05 13:40:00 169.2 [lb_av] Common [facility] temperature 2021-02-05 13:40:00 97.3 [degF] Common [facility] bmi 2021-02-05 13:40:00 33.04 kg/m2 [facility] oximetry 2021-02-05 13:40:00 97 % [facility] respiratory rate 2021-02-05 13:40:00 16 /min [facility] blood pressure 2021-02-05 13:40:00 138 mm[Hg] [facility] blood pressure 2021-02-05 13:40:00 80 mm[Hg] [facility] Systolic (mm Hg) 2020-10-05 18:42:00 Abraham [facility] Diastolic (mm Hg) 2020-10-05 18:42:00 Mem orial [facility] Heart Rate 2020-10-05 18:42:00 [facility] Temperature Oral (F) 2020-10-05 18:42:00 98.4 F [facility] Height 2020-10-05 18:42:00 152.4 cm [facility] Weight 2020-10-05 18:42:00 [facility] BMI Calculated 2020-10-05 18:42:00 Memori al [facility] Heart Rate 2020-02-19 21:06:00 [facility] Temperature Oral (F) 2020-02-19 21:06:00 97.4 F [facility] Respitory Rate 2020-02-19 21:06:00 [facility] [place] Systolic (mm Hg) 2020-02-19 21:06:00 Abraham [facility] Diastolic (mm Hg) 2020-02-19 21:06:00 Mem orial [facility] Height 2020-02-19 16:14:00 152.4 cm [facility] BMI Calculated 2020-02-19 16:14:00 Memori al [facility] Weight 2020-02-19 16:14:00 [facility] Systolic (mm Hg) 2020-02-19 16:14:00 Abraham [facility] Diastolic (mm Hg) 2020-02-19 16:14:00 Mem o[facility] Heart Rate 2020-02-19 16:14:00 [facility] Respitory Rate 2020-02-19 16:14:00 [facility] [place] Temperature Oral (F) 2020-02-19 16:14:00 98.1 F [facility] Temperature Oral (F) 2019-09-06 16:25:00 98.9 F [facility] Heart Rate 2019-09-06 16:25:00 [facility] Respitory Rate 2019-09-06 16:25:00 [facility] [place] Systolic (mm Hg) 2019-09-06 16:25:00 [facility] [place] Diastolic (mm Hg) 2019-09-06 16:25:00 [facility] [place] Temperature Oral (F) 2019-09-06 12:29:00 98.9 F [facility] Heart Rate 2019-09-06 12:29:00 [facility] Respitory Rate 2019-09-06 12:29:00 [facility] [place] Systolic (mm Hg) 2019-09-06 12:29:00 [facility] [place] Diastolic (mm Hg) 2019-09-06 12:29:00 [facility] [place] Temperature Oral (F) 2019-09-06 09:18:00 99.0 F [facility] Heart Rate 2019-09-06 09:18:00 [facility] Respitory Rate 2019-09-06 09:18:00 [facility] [place] Systolic (mm Hg) 2019-09-06 09:18:00 Abraham [facility] Diastolic (mm Hg) 2019-09-06 09:18:00 Mem o[facility] Height 2019-08-30 14:20:00 152.4 cm [facility] Weight 2019-08-30 14:20:00 [facility] BMI Calculated 2019-08-30 14:20:00 Mem[facility] Systolic (mm Hg) 2019-07-16 15:35:00 Abraham [facility] Diastolic (mm Hg) 2019-07-16 15:35:00 Mem [facility] Heart Rate 2019-07-16 15:35:00 [facility] Respitory Rate 2019-07-16 15:35:00 Memori [facility] Systolic (mm Hg) 2019-07-16 14:30:00 [facility] [place] Diastolic (mm Hg) 2019-07-16 14:30:00 Mem o[facility] Heart Rate 2019-07-16 14:30:00 [facility] Respitory Rate 2019-07-16 14:30:00 Memori [facility] Height 2019-07-16 12:42:00 152.4 cm [facility] BMI Calculated 2019-07-16 12:42:00 [facility] [place] Weight 2019-07-16 12:42:00 [facility] Systolic (mm Hg) 2019-07-16 12:42:00 [facility] [place] Diastolic (mm Hg) 2019-07-16 12:42:00 Mem o[facility] Heart Rate 2019-07-16 12:42:00 [facility] Respitory Rate 2019-07-16 12:42:00 Memori [facility] Temperature Oral (F) 2019-07-16 12:42:00 97.5 F [facility] Systolic (mm Hg) 2019-07-13 03:15:00 [facility] [place] Diastolic (mm Hg) 2019-07-13 03:15:00 [facility] [place] Respitory Rate 2019-07-13 03:15:00 [facility] [place] Heart Rate 2019-07-13 03:15:00 [facility] Temperature Oral (F) 2019-07-13 03:15:00 98.4 F [facility] Systolic (mm Hg) 2019-07-13 02:27:00 [facility] [place] Diastolic (mm Hg) 2019-07-13 02:27:00 Mem orial [facility] Respitory Rate 2019-07-13 02:27:00 [facility] [place] Heart Rate 2019-07-13 02:27:00 [facility] Systolic (mm Hg) 2019-07-13 01:14:00 Abraham rial [facility] Diastolic (mm Hg) 2019-07-13 01:14:00 Mem orial [facility] Respitory Rate 2019-07-13 01:14:00 [facility] [place] Heart Rate 2019-07-13 01:14:00 [facility] Temperature Oral (F) 2019-07-13 01:14:00 98.3 F [facility] Height 2019-07-12 22:27:00 165.1 cm [facility] BMI Calculated 2019-07-12 22:27:00 [facility] [place] Weight 2019-07-12 22:27:00 [facility] Temperature Oral (F) 2019-07-12 22:27:00 97.8 F [facility] Weight 2018-10-25 13:37:00 [facility] Height 2018-10-25 13:37:00 152.4 cm [facility] BMI Calculated 2018-10-25 13:37:00 [facility] [place] Systolic (mm Hg) 2018-10-25 13:37:00 [facility] [place] Diastolic (mm Hg) 2018-10-25 13:37:00 Mem o[facility] Heart Rate 2018-10-25 13:37:00 [facility] Diastolic (mm Hg) 2013-10-16 19:40:00 Mem [facility] Systolic (mm Hg) 2013-10-16 19:40:00 Abraham [facility] Respitory Rate 2013-10-16 19:00:00 Memori al [facility] Temperature Oral (F) 2013-10-16 17:52:00 98.1 F [facility] Respitory Rate 2013-10-16 16:00:00 Memori al [facility] Diastolic (mm Hg) 2013-10-16 16:00:00 [facility] [place] Systolic (mm Hg) 2013-10-16 16:00:00 [facility] [place] Temperature Oral (F) 2013-10-16 14:37:00 98.5 F [facility] Respitory Rate 2013-10-16 14:00:00 [facility] [place] Diastolic (mm Hg) 2013-10-16 14:00:00 [facility] [place] Systolic (mm Hg) 2013-10-16 14:00:00 Abraham [facility] Temperature Oral (F) 2013-10-16 10:01:00 97.8 F [facility] Heart Rate 2013-10-13 09:29:00 [facility] Heart Rate 2013-10-13 08:21:00 David Contreras Weight 2013-10-13 07:45:00 David Contreras BMI Calculated 2013-10-13 07:45:00 Malvin Gonzalez Height 2013-10-13 07:45:00 152.4 cm David Contreras Heart Rate 2013-10-13 07:45:00 David Contreras Procedures Procedure Date / Time Performing Clinician Source Performed AUTHORIZATION FOR RELEASE 2022-11-04 05:01:00 Doctor Chantell, [facility] OF PSYCHIATRIC [place] [facility] EXTERNAL PROVIDER RECORDS 2022-06-18 05:01:00 Doctor Chantell, [facility] CT THORAX W CONTRAST 2022-05-29 19:42:11 [facility] [place] [facility] ABDOMEN PELVIS W 2022-05-29 19:39:47 Aramis Granda Uni [facility] CONTRAST Medical Branch HB CREATININE SERUM/BLOOD 2022-05-29 19:22:00 Aramis Granda Sco tt [facility] FOR IMAGING Medical Branch NOTICE OF PRIVACY 2022-05-29 18:42:08 Doctor Unassigned, [facility] PRACTICES [place] [facility] CONSENT/REFUSAL FOR 2022-05-29 18:41:23 Doctor Unassigned, [facility] DIAGNOSIS AND TREATMENT [place] [facility] CONSENT/REFUSAL FOR 2022-05-29 18:41:06 Doctor Unassigned, [facility] DIAGNOSIS AND TREATMENT [facility] [facility] ASSIGNMENT OF BENEFITS 2022-05-29 18:40:45 Doctor Unassigned, [facility] [place] [facility] ASSIGNMENT OF BENEFITS 2022-05-29 18:40:28 Doctor Unassigned, [facility] [place] [facility] ASSIGNMENT OF BENEFITS 2021-12-23 18:54:26 Doctor Pearlssigned, [facility] [facility] MEDICATION CORRESPONDENCE 2021-11-29 05:01:00 Doctor Chantell, [facility] [facility] EXTERNAL PROVIDER RECORDS 2021-11-13 05:01:00 Doctor Chantell, [facility] [facility] Dental care 2020-09-28 05:00:00 David josé Eye care 2020-03-23 06:00:00 David josé Stent placement [facility] David Hurtado n Cholecystectomy [facility] Plan of Care Planned Activity Planned Date Details Comments Source Future Scheduled 2022-11-17 Screening [facility] Test 16:06:48 malignant neoplasm of colon (procedure) [code = 630101318] Future Scheduled 2022-11-17 Screening for [facility] Test 16:06:48 malignant neoplasm of colon (procedure) [code = 381206917] Future Scheduled 2022-11-17 Screening for [facility] Test 16:06:48 malignant neoplasm of colon (procedure) [code = 207708675] Future Scheduled 2022-11-17 COVID-19 VACCINE (#1) Me [facility] Test 16:06:48 [code = COVID-19 VACCINE (#1)] Future Scheduled 2022-11-[address] [facility] Test 16:06:48 SCREENING [code = BREAST CANCER SCREENING] Future Scheduled 2022-11-[address] [facility] Test 16:06:48 malignant neoplasm of colon (procedure) [code = 228721526] Future Scheduled 2022-11-17 Screening for [facility] Test 16:06:48 malignant neoplasm of colon (procedure) [code = 334397736] Future Scheduled 2022-11-17 SHINGLES VACCINES (1 Met [facility] Test 16:06:48 of 2) [code = SHINGLES VACCINES (1 of 2)] Future Scheduled 2022-11-17 65+ PNEUMOCOCCAL [facility] Test 16:06:48 VACCINE (1 - PCV) [code = 65+ PNEUMOCOCCAL VACCINE (1 - PCV)] Future Scheduled 2022-11-17 INFLUENZA VACCINE (#1) [facility] Test 16:06:48 [code = INFLUENZA VACCINE (#1)] Future Scheduled COVID-19 VACCINE (1) Met [facility] Test [code = COVID-19 VACCINE (1)] Future Scheduled Hepatitis C screening [facility] Test (procedure) [code = 178605161] Future Scheduled BREAST CANCER [facility] Test SCREENING [code = BREAST CANCER SCREENING] Future Scheduled COLONOSCOPY SCREENING [facility] Test [code = COLONOSCOPY SCREENING] Future Scheduled SHINGLES VACCINES (#1) M [facility] Test [code = SHINGLES VACCINES (#1)] Future Scheduled 65+ PNEUMOCOCCAL [facility] Test VACCINE (1 of 1 - PPSV23) [code = 65+ PNEUMOCOCCAL VACCINE (1 of - PPSV23)] Future Scheduled [facility]ACCINE [facility] [code = INFLUENZA VACCINE] Encounters Start End Encounter Admission Attending Care Care Encounter Source Date/Time Date/Time Type Type Clinicians Facility Department ID 2022-10-15 Outpatient Pisano, STLMLC STLMLC [id number] Common 13:26:[id number] [facility] 2022-08-05 Outpatient Pisano, STLMLC STLMLC [id number] Common 12:07:[address] [facility] 2022-06-12 Outpatient Pisano, STLMLC STLMLC [id number] Common 09:30:[address] [facility] 2022-06-09 Outpatient Pisano, STLMLC STLMLC [id number] Common 11:31:[address] [facility] 2022-05-02 Outpatient Pisano, STLMLC STLMLC [id number] Common 12:27:[address] [facility] 2022-04-30 Outpatient Pisano, STLMLC STLMLC [id number] Common 12:21:[address] [facility] 2022-04-29 Outpatient Pisano, STLMLC STLMLC [id number] Common 12:51:[address] [facility] 2022-02-05 Outpatient Pisano, STLMLC STLMLC [id number] Common 11:37:[address] [facility] 2022-01-30 Outpatient Pisano, STLMLC STLMLC [id number] Common 08:40:[address] [facility] 2021-07-31 Outpatient Pisano, STLMLC STLMLC [id number] Common 09:41:[address] [facility] 2021-07-11 Outpatient Pisano, STLMLC STLMLC [id number] Common 10:33:[address] [facility] 2021-07-10 Outpatient Pisano, STLMLC STLC [id number] Common 09:09:[address] [facility] 2021-04-25 Outpatient Pisano, STLMLC STLC [id number] Common 14:56:[address] [facility] 2021-04-17 Outpatient Pisano, STLMLC STLMLC [id number] Common 14:33:[address] [facility] 2021-04-17 Outpatient STLMLC STLC [id number] Common 14:13:56 [facility] 2021-04-17 [facility] [id number] Common 14:13:02 [facility] 2021-01-22 Inpatient [facility] [id number] Univers 06:41:13 BETTY hogan [facility] 2021-01-21 Inpatient [facility] [id number] Univers 22:51:36 BETTY edison [facility] 2022-11-04 2022-11-04 Telephone [facility] 1.2.189.023 [id number] Univers 00:00:00 00:00:00 Aramis FIGUEROA 350.1.13.10 i ty of [place] [phone] Nm dical [address] 2022-11-04 2022-11-04 Orders Doctor DALLIN 1.2.840.114 [id number] Univers 00:00:00 00:00:00 Only Unassigned, ADONIS 350.1.13.10 ity of [place] [facility] 4.2.7.2.686 Ryan as [phone] [address] 2022-06-18 2022-06-18 Orders Doctor DALLIN 1.2.840.114 [id number] Univers 00:00:00 00:00:00 Only Unassigned, ADONIS 350.1.13.10 ity of [place] [facility] 4.2.7.2.686 Ryan as [phone] [address] 2022-06-092022-06-09 Outpatient [facility] [id number] Univers 09:30:00 09:38:42 ARAMIS ity of [facility] 2022-06-09 2022-06-09 Office [facility] 1.2.840.114 [id number] Univers 09:30:00 09:38:42 Visit Aramis FIGUEROA 350.1.13.10 i ty of [place] [facility] 4.2.7.2.686 [facility] [phone] Me dical NAL 419 [facility] 2022-05-29 2022-05-29 Outpatient Elinor [facility] RAD [id number] Univers 12:43:19 23:59:00 ARAMIS ity of [facility] 2022-05-29 2022-05-29 [facility] 1.2.840.114 [id number] Univers 12:43:19 23:59:00 Encounter Aramis MENDOZATON 350.1.13.10 ity of [place] [facility] 4.2.7.2.686 [facility] [id number] [address] 2022-05-29 2022-05-29 [facility] 1.2.840.114 [id number] Univers 12:42:50 12:42:50 Encounter Aramisravinder MENDOZATON 350.1.13.10 ity of [place] [facility] 4.2.7.2.686 [facility] [id number] [address] 2022-04-30 2022-04-30 OFFICE STLMLC STLMLC [id number] Co mmon 00:00:00 00:00:00 VISIT Spirit ESTAB PT - CHI LEVEL 4 [facility] 2022-02-05 2022-02-05 OFFICE STLMLC STLMLC [id number] Co mmon 00:00:00 00:00:00 VISIT NEW Spir it PT LEVEL 3 - [facility] 2022-01-14 2022-01-14 (TEL) STLMLC STLMLC [id number] Co mmon 00:00:00 00:00:00 Spirit - [facility] 2022-01-13 2022-01-13 Outpatient [facility] [id number] Univers 08:30:00 08:42:51 ARAMIS ity of [facility] 2022-01-13 2022-01-13 Office [facility] 1.2.840.114 [id number] Univers 08:30:00 08:42:51 Visit Aramis FIGUEROA 350.1.13.10 i ty of [place] [facility] 4.2.7.2.[place] [phone] Nm dical NAL [address] [facility] 2022-01-07 2022-01-07 [facility] [id number] Co mmon 00:00:00 00:00:00 [facility] 2021-12-23 2021-12-23 Outpatient [facility] [id number] Univers 13:55:23 23:59:00 ARAMIS ity of [facility] 2021-12-23 2021-12-23 [facility] 1.2.840.114 [id number] Univers 13:55:23 23:59:00 Encounter Aramisravinder FIGUEROA 350.1.13.10 ity of [facility] 4.2.7.2.[place] [phone] [facility] [address] [place] 2021-12-23 2021-12-23 [facility] 1.2.840.114 [id number] Univers 13:54:39 13:54:39 Encounter Aramisravinder MENDOZATON 350.1.13.10 ity of [facility] 4.2.7.2.[place] [phone] [facility] [address] 2021-12-23 2021-12-23 Outpatient R [facility] [id number] Univers 00:00:00 00:00:00 ARAMIS ity of [facility] 2021-12-23 2021-12-23 Orders Doctor ZAMARRIPA 1.2.840.114 [id number] Univers 00:00:00 00:00:00 Only Unassigned, ADONIS 350.1.13.10 ity of [place] [facility] 4.2.7.2.686 Ryan as [phone] [facility] [address] 2021-12-20 2021-12-20 (TEL) [facility] [id number] Co mmon 00:00:00 00:00:00 Spirit [facility] 2021-12-18 2021-12-[address] [facility] [facility] [id number] Co mmon 00:00:00 00:00:00 VISIT Spirit SNOW PT - CHI LEVEL 4 [facility] 2021-12-18 2021-12-18 Telephone [facility] 1.2.059.395 [id number] 00:00:00 00:00:00 Aramis MENDOZAYONY 350.1.13.10 i ty of [place] [facility] 4.2.7.2.[place] [phone] Nm dical NAL 419 [facility] 2021-12-16 2021-12-16 Outpatient R [facility] [id number] Univers 10:00:00 10:00:00 ARAMIS hogan [facility] 2021-12-16 2021-12-16 Guest Services Assistant 2, Adc Lab [facility] 1.2.840.114 [id number] Univers 09:00:00 09:15:00 Visit Ken Grandaravinder FIGUEROA 350.1.13 .10 ity of [place] [id number] Nm dical NAL 353 [facility] 2021-12-16 2021-12-16 Outpatient Elinor GRANDA [facility] [id number] Univers 09:00:00 09:02:44 ARAMIS edison [facility] 2021-12-16 2021-12-16 Office [facility] 1.2.840.114 [id number] Univers 08:00:00 08:43:34 Visit Aramis FIGUEROA 350.1.13.10 i ty of [place] [facility] 4.2.7.2.[place] [phone] Nm dical NAL 419 [facility] 2021-12-02 2021-12-02 Telephone SHAWN Mota 1.2.840.11 [id number] Univers 00:00:00 00:00:00 [facility] 350.1.13.10 ity of [facility] 4.2.7.2.[place] [phone] [facility] [address] 2021-11-29 2021-11-29 Orders Doctor DALLIN 1.2.840.114 [id number] Univers 00:00:00 00:00:00 Only Unassigned, ADONIS 350.1.13.10 ity of [place] [facility] 4.2.7.2.686 Ryan as [phone] [facility] [address] 2021-11-13 2021-11-13 Orders Doctor DALLIN 1.2.840.114 [id number] Univers 00:00:00 00:00:00 Only Unassigned, ADONIS 350.1.13.10 ity of [place] [facility] 4.2.7.2.686 Ryan as [phone] [facility] [address] 2021-10-03 2021-10-03 Outpatient Elinor MOTA [facility] [id number] Univers 00:00:00 00:00:00 BETTY hogan [facility] 2021-09-09 2021-09-09 (TEL) STLMLC STLMLC [id number] Co mmon 00:00:00 00:00:00 Spirit [facility] 2021-09-06 2021-09-06 OFFICE STLMLC STLMLC [id number] Co mmon 00:00:00 00:00:00 VISIT Spirit ESTAB PT - CHI LEVEL 4 [facility] 2021-09-04 2021-09-04 (TEL) STLMLC STLMLC [id number] Co mmon 00:00:00 00:00:00 Spirit - [facility] 2021-08-02 2021-08-02 OFFICE STLMLC STLMLC [id number] Co mmon 00:00:00 00:00:00 VISIT Spirit ESTAB PT - CHI LEVEL 4 [facility] 2021-07-29 2021-07-29 (TEL) STLMLC STLMLC [id number] Co mmon 00:00:00 00:00:00 Spirit - [facility] 2021-07-12 2021-07-12 OFFICE STLMLC STLMLC [id number] Co mmon 00:00:00 00:00:00 VISIT EST Spir it PT LEVEL 3 - [facility] 2021-05-30 2021-05-30 Outpatient R MISHA [facility] [id number] Univers 08:30:00 08:30:[address] [facility] 2021-05-02 2021-05-02 OFFICE STLMLC STLMLC [id number] Co mmon 00:00:00 00:00:00 VISIT Spirit ESTAB PT - CHI LEVEL 4 [facility] 2021-04-24 2021-04-24 SUB ANNUAL STLMLC STLMLC [id number] Common 00:00:00 00:00:00 MCR Spirit WELLNESS - CHI VISIT [facility] 2021-04-03 2021-04-03 OFFICE STLMLC STLMLC [id number] Co mmon 00:00:00 00:00:00 VISIT Spirit ESTAB PT - CHI LEVEL 4 [facility] 2021-03-26 2021-03-26 OFFICE STLMLC STLMLC [id number] Co mmon 00:00:00 00:00:00 VISIT EST Spir it PT LEVEL 3 - [facility] 2021-03-18 2021-03-18 Outpatient R NAKUL [facility] [id number] Univers 09:45:00 10:36:32 [facility] 2021-03-18 2021-03-18 Outpatient R NAKUL [facility] [id number] Univers 09:45:00 10:36:32 [facility] 2021-03-18 2021-03-18 Office HANG MotaIT 1.2.840.114 [id number] Univers 09:45:00 10:36:32 Visit [facility] 350.1.13.10 ity Critical access hospital [place] [id number] [address] 2021-03-18 2021-03-18 Outpatient R NAKUL [facility] [id number] Univers 09:45:00 10:36:32 [facility] 2021-03-13 2021-03-13 (TEL) STLMLC STLMLC [id number] Co mmon 00:00:00 00:00:00 Spirit - [facility] 2021-03-12 2021-03-12 Transition TATE Pérez 1.2.840.114 [id number] Univers 00:00:00 00:00:00 of Care Marcela COULTER 350.1.13.10 i ty of [place].2.[place] [phone] [facility] [address] 2021-03-11 2021-03-11 Telephone DALLIN Mota 1.2.840.114 [id number] Univers 00:00:00 00:00:00 Betty STARKS 350.1.13.10 ity of [facility] 4.2.7.2.686 Ryan as [phone] [facility] [address] 2021-03-02 2021-03-10 [facility] [id number] Univers 12:56:00 12:00:00 [facility] 2021-03-02 2021-03-10 Inpatient [facility] [id number] Univers 12:56:00 12:00:00 [facility] 2021-03-02 2021-03-10 [facility] Betty Mota 1.2.840.114 [id number] Univers 12:56:00 12:00:00 Encounter Brigido Tidwell 350.1.13.10 ity of [facility] 4.2.7.2.686 Ryan as [phone] [facility] [address] 2021-03-02 2021-03-10 Inpatient [facility] [id number] Univers 12:56:00 12:00:00 [facility] 2021-03-05 2021-03-05 Surgery LAUREN Mota 1.2.840.114 [id number] Univers 07:15:00 11:12:00 Betty STARKS 350.1.13.10 ity of [facility] 4.2.7.2.686 Ryan as [id number] [facility] [address] 2021-02-26 2021-02-26 Ambulatory nullFlavo [facility] [id number] Memoria 14:45:00 14:45:00 Pre-Reg r Primary 04 l [facility] 2021-02-26 2021-02-26 Ambulatory nullFlavo [facility] [id number] Memoria 14:45:00 14:45:00 Pre-Reg r Primary 04 l [facility] 2021-02-26 2021-02-26 Outpatient Lori [facility] [id number] 08:45:00 08:45:00 Christinejalen [place] 2021-02-11 2021-02-11 (TEL) STLMLC STLMLC [id number] Co mmon 00:00:00 00:00:00 Spirit - [facility] 2021-02-05 2021-02-05 OFFICE STLMLC STLMLC [id number] Co mmon 00:00:00 00:00:00 VISIT NEW Spir it PT LEVEL 4 - [facility] 2021-01-30 2021-01-30 Telephone SHAWN Mota 1.2.840.11 [id number] Univers 00:00:00 00:00:00 Betty Y HEALTH 350.1.13.10 ity of [facility] [place]2.7.2.[place] [phone] [facility] [address] 2021-01-28 2021-01-28 Outpatient JALEN IE [id number] Memoria 08:45:00 08:45:00 04 tae Contreras 2021-01-04 2021-01-04 Refill SHAWN Mota 1.2.840.114 [id number] Univers 00:00:00 00:00:00 Betty Y HEALTH 350.1.13.10 ity of [facility] 4[place]2.7.2.[place] [id number] [facility] [address] 2021-01-02 2021-01-02 Surgery Lauren Mota 1.2.840.114 [id number] Univers 10:55:00 16:13:00 Betty [place] 350.1.13.10 ity of [facility] 4.2.7.2.686 Ryan as [phone] [facility] [address] 2021-01-02 2021-01-02 Hospital Lauren Mota 1.2.840.114 [id number] Univers 08:57:00 12:26:00 Encounter Betty Starks 350.1.13.10 ity of [facility] 4.2.7.2.686 [place] as [phone] [facility] [address] 2021-01-02 2021-01-02 Anesthesia Damon Gabby Lauren 1.2.840.114 [id number] Univers 11:11:00 11:35:00 Event Braulio Apple 350.1.13.10 [facility] of [facility] 4.2.7.2.686 [place] as [phone] [facility] [address] 2021-01-02 2021-01-02 Orders Doctor DALLIN 1.2.840.114 [id number] Univers 00:00:00 00:00:00 Only Unassigned, ADONIS 350.1.13.10 ity of [place] [facility] 4.2.7.2.686 Ryan as [phone] [facility] [address] 2021-01-02 2021-01-02 Prep For DALLIN Mota 1.2.840.114 [id number] Univers 00:00:00 00:00:00 Surgery Betty BLACKY 350.1.13.10 ity of [facility] 4.2.7.2.686 Ryan as [phone] [facility] [address] 2021-01-02 2021-01-02 Patient SHAWN Mota 1.2.840.114 [id number] Univers 00:00:00 00:00:00 Outreach Betty [facility] 350.1.13.10 ity of [facility] 4[place]2.[place].2.[place] [phone] [facility] [address] 2021-01-01 2021-01-01 Outpatient R UNKNOWN, [facility] [id number] Univers 10:15:00 10:15:00 ATTENDING ity of [facility] 2021-01-01 2021-01-01 Laboratory Only, Clc Bls Test [facility] 1.2. 840.114 [id number] Univers 09:39:15 09:54:15 Only Unknown, Attending Health 350.1.13.10 ity of [place] [phone] [place] [address] Branch Office Building 2021-01-01 2021-01-01 Letter DALLIN Bowen 1.2.840.114 [id number] Univers 00:00:00 00:00:00 (Out) Rema Dubois ADONIS 350.1.13.10 it y of HOSPITAL 4.2.7.2.686 [place] as [phone] [place] [address] Branch 2020-12-31 2020-12-31 Ambulatory nullFlavo [facility] [id number] Memoria 19:30:00 19:30:00 Pre-Reg r Primary 03 l Care [facility] 2020-12-31 2020-12-31 Ambulatory nullFlavo [facility] [id number] Memoria 19:30:00 19:30:00 Pre-Reg r Primary 03 l [facility] 2020-12-31 2020-12-31 Outpatient MHIE MHIE [id number] Memoria 14:30:00 14:30:00 03 l Ben 2020-12-31 2020-12-31 Outpatient Generillo, [facility] [id number] 14:30:00 14:30:00 Jane Kandy Kervin 2020-12-17 2020-12-17 Office Nakul, [facility] 1.2.840.114 [id number] Univers 13:43:07 14:24:33 Visit [facility] 350.1.13.10 ity of CL[place] [id number] [address] 2020-12-17 2020-12-17 Outpatient R NAKUL [facility] [id number] Univers 13:45:00 13:45:00 BETTY ity [facility] 2020-12-13 2020-12-13 [facility], [facility] 1.2.840.114 [id number] Univers 08:43:38 23:59:00 Encounter Maricel Rodriguez HEALTH 350.1.13.10 ity of CL[place] [phone] [facility] 8[address] 2020-12-13 2020-12-13 Out[facility] [id number] Univers 00:00:00 00:00:00 EESHA ity [facility] 2020-12-12 2020-12-12 Telephone SHAWN Connor 1.2.840.114 [id number] Univers 00:00:00 00:00:00 [facility] 350.1.13.10 i ty of [facility] 4.2.7.2.[place] [phone] [place] 66[address] [place] 2020-12-11 2020-12-11 Letter DALLIN Bowen 1.2.840.114 [id number] Univers 00:00:00 00:00:00 (Out) Rmea Dubois ADONIS 350.1.13.10 it y [facility] 4.2.7.2.686 Ryan as [phone] [facility] [address] 2020-12-10 2020-12-10 Outpatient R [facility] [id number] Univers 09:15:00 09:15:00 ity [facility] 2020-12-10 2020-12-10 Laboratory Only, Web Test [facility] 1.2.840. 114 [id number] Univers 08:29:51 08:44:51 Only Roger Obrien [facility] 350.1.13. 10 ity of Specialty 4.2.7.2.686 [facility] [phone] [facility] [address] 2020-11-30 2020-11-30 Outpatient R [facility] [id number] Univers 14:00:00 14:00:00 ity [facility] 2020-11-30 2020-11-30 Outpatient R [facility] [id number] Univers 14:00:00 14:00:00 ity [facility] 2020-11-30 2020-11-30 Outpatient R MISHA [facility] [id number] Univers 13:00:00 13:32:[address] [facility] 2020-11-30 2020-11-30 Office Misha [facility] 1.2.840.114 [id number] Univers 12:22:56 13:32:10 Visit [facility] Health 350.1.13.10 it y of [place] [phone] [facility] 059 Branch Office Building 2020-11-30 2020-11-30 Outpatient R MISHA, [facility] [id number] Univers 13:00:00 13:00:00 EESHA ity of [facility] 2020-11-28 2020-11-28 [facility] [id number] Univers 13:30:00 14:00:46 RAND ity [facility] 2020-11-28 2020-11-28 Office Betty Mota [facility] 1.2.840.114 [id number] Univers 12:52:39 14:00:46 Visit Miguel Rand R Y HEALTH 350.1.1 3.10 ity of [place] [phone] [facility] [address] [place] 2020-11-28 2020-11-28 Office Betty Mota [facility] 1.2.840.114 [id number] Univers 12:52:39 14:00:46 Visit Miguel Rand R Y HEALTH 350.1.1 3.10 ity of [place] [id number] [facility] [address] 2020-11-28 2020-11-28 Outpatient [facility] [id number] Univers 13:30:00 13:30:00 RAND ity of [facility] 2020-11-27 2020-11-27 Transition Tate Grider 1.2.840.114 [id number] Univers 00:00:00 00:00:00 of Care Trish Coulter 350.1.13.10 it y of [place].2.[place] [id number] [facility] [address] 2020-11-27 2020-11-27 Transition Tate Grider 1.2.840.114 [id number] Univers 00:00:00 00:00:00 of Care Trish Coulter 350.1.13.10 it y of [place] 4.2.7.2.686 [facility] [phone] [place] [address] Branch 2020-11-20 2020-11-23 Outpatient [facility] [id number] Univers 20:15:00 17:14:00 LM [facility] 2020-11-20 2020-11-23 Emergency Delia Garner [facility] 1.2.840.1 [id number] Univers 20:15:00 17:14:00 [facility] 350.1.13 .10 ity of [place] 4.2.7.2.686 [place] [id number] [address] ([facility]) 2020-11-20 2020-11-23 [facility] [id number] Univers 20:15:00 17:14:00 [facility] 2020-11-20 2020-11-20 Emergency X RAMIRO [facility] ERT [id number] Univers 20:15:00 20:15:00 [facility] 2020-11-20 2020-11-20 Emergency EM Fadi, TELLO REMA [id number] [facility] 10:30:00 13:04:[address] [place] [address] 2020-10-05 2020-10-06 Outpatient nullFlavo [facility] [id number] Memoria 18:30:00 04:59:59 r Primary 02 l [facility] 2020-10-05 2020-10-06 Outpatient nullFlavo [facility] [id number] Memoria 18:30:00 04:59:59 r Primary 02 l [facility] 2020-10-05 2020-10-05 Outpatient Jorge, [facility] [id number] 13:30:00 23:59:59 Mireille Funez 2020-10-05 2020-10-05 Outpatient MHIE MHIE [id number] Memoria 13:30:00 13:30:00 Armin Contreras 2020-08-27 2020-08-27 Outpatient GCCOVIDV [facility]OVID[facility] [id number] GCCOVID 00:00:00 00:00:00 V 2020-08-06 2020-08-06 Outpatient GCCOVIDV [facility]OVIDV [id number] GCCOVID 00:00:00 00:00:00 V 2020-07-19 2020-07-20 Outpt Diag nullFlavo [facility] [id number] Memoria 16:22:00 04:59:00 Services r Outpatient 07 l Imaging [facility] 2020-07-19 2020-07-20 Outpt Diag nullFlavo [facility] [id number] Memoria 16:22:00 04:59:00 Services r Outpatient 07 l Imaging [facility] 2020-07-19 2020-07-19 Outpatient Hubert Elmore 2.16.840. 2.16.840. 1. [id number] 11:22:00 23:59:00 Juan [id number]. [id number] 3.615.134 5.134 2020-05-18 2020-05-19 Outpt Diag nullFlavo [facility] [id number] Memoria 12:46:00 05:59:00 Services r Outpatient 06 l Imaging [facility] 2020-05-18 2020-05-19 Outpt Diag nullFlavo [facility] [id number] Memoria 12:46:00 05:59:00 Services r Outpatient 06 l Imaging [facility] 2020-05-18 2020-05-18 Outpatient Hubert Elmore 2.16.840. 2.16.840. 1. [id number] 06:46:00 23:59:00 Juan [id number]. [id number] 3.615.30 5.30 2020-02-24 2020-02-25 Outpt Diag nullFlavo [facility] [id number] Memoria 12:38:00 05:59:00 Services r Outpatient 04 l Imaging [facility] 2020-02-24 2020-02-25 Outpt Diag nullFlavo [facility] [id number] Memoria 12:38:00 05:59:00 Services r Outpatient 04 l [facility] 2020-02-24 2020-02-24 Outpatient Ping 2.16.840. 2.16.840.1. 3 [id number] 06:38:00 23:59:00 Abdoulaye Hipolito [id number]. [id number] 3.615.30 5.30 2020-02-19 2020-02-19 Emergency nullFlavo [facility] [id number] Memoria 16:10:22 21:14:00 r Ben 07 [facility] 2020-02-19 2020-02-19 Emergency nullFlavo [place] [id number] Memoria 16:10:22 21:14:00 r [place] 07 [facility] 2020-02-19 2020-02-19 [id number] 10:10:22 15:14:00 Ebelechuliuu 07 Catie 2019-11-07 2019-11-08 Outpt Diag nullFlavo [place] [id number] Memoria 12:32:00 04:59:00 Services r Outpatient 01 l Imaging [facility] 2019-11-07 2019-11-08 Outpt Diag nullFlavo [place] [id number] Memoria 12:32:00 04:59:00 Services r Outpatient 01 l Imaging [facility] 2019-11-07 2019-11-07 Outpatient Ping, 2.16.840. 2.16.840.1. 3 [id number] 07:32:00 23:59:00 Abdoulaye Hipolito [id number]. [id number] 3.615.30 5.30 2019-09-01 2019-09-06 Inpatient nullFlavo [place] [id number] Memoria 13:40:00 23:26:00 r Ben 06 [facility] 2019-09-01 2019-09-06 Inpatient nullFlavo [place] [id number] Memoria 13:40:00 23:26:[address] 2019-09-01 2019-09-06 Inpatient ISAIAS [facility] NICOLA [id number] Memoria 08:40:00 18:26:00 [facility] 2019-09-01 2019-09-06 Outpatient Daly [facility] [id number] 08:40:00 18:26:00 Иван Culp 2019-07-16 2019-07-16 Emergency nullFlavo [facility] [id number] Memoria 12:41:22 15:37:00 r Ben Pfeiffer [facility] 2019-07-16 2019-07-16 Emergency nullFlavo [facility] [id number] Memoria 12:41:22 15:37:00 r Ben Pfeiffer [facility] 2019-07-16 2019-07-16 Outpatient Reggie Raffaele 9 [id number] 07:41:22 10:37:00 Carlos Pfeiffer 2019-07-16 2019-07-16 [facility] [id number] Memoria 07:41:00 10:37:00 CARLOS Rico l 2019-07-12 2019-07-13 Emergency nullFlavo [facility] [id number] Memoria 22:23:06 03:31:00 r Ben Ferreira [facility] 2019-07-12 2019-07-13 Emergency nullFlavo [facility] [id number] Memoria 22:23:06 03:31:00 r Ben Ferreira [facility] 2019-07-12 2019-07-12 Outpatient Mayra Raffaele 9 [id number] 17:23:06 22:31:00 Cooper Mac 2019-07-12 2019-07-12 Emergency E [facility]RA[facility] [id number] Memoria 17:23:00 22:31:00 COOPER Rico l 2018-11-26 2018-11-26 Ambulatory nullFlavo MNA [id number] Memoria 14:15:00 14:15:00 Pre-Reg r Neurology 01 tae [place] 2018-11-26 2018-11-26 Ambulatory nullFlavo MNA [id number] Memoria 14:15:00 14:15:00 Pre-Reg r Neurology 01 tae Cecilia Ben 2018-11-26 2018-11-26 Outpatient MHIE MHIE [id number] Memoria 09:15:00 09:15:00 01 tae Contreras 2018-11-26 2018-11-26 [facility] [id number] 09:15:00 09:15:00 Mark Daphne Lynne 2018-10-25 2018-10-26 Outpatient nullFlavo MNA [id number] Memoria 14:15:00 04:59:59 r Neurology 00 l Cecilia Contreras 2018-10-25 2018-10-26 Outpatient nullFlavo MNA [id number] Memoria 14:15:00 04:59:59 r Neurology 00 l eCcilia Contreras 2018-10-25 2018-10-25 [id number] 09:15:00 23:59:59 Mark 00 Maged 2018-10-25 2018-10-25 Outpatient [facility] [place] [id number] Memoria 09:15:00 09:15:00 00 l [place] 2013-10-13 2013-10-16 Inpatient [facility] [id number] Memoria 07:45:00 21:50:[address] 2013-10-13 2013-10-16 Inpatient [facility] [id number] Memoria 07:45:00 21:50:[address] 2013-10-13 2013-10-16 Outpatient Minerva Guallpa 2.16.840. 2.16.840. 1. [id number] 02:45:00 16:50:00 Jeovanny [id number] 75 5600-01-01 Orders Doctor DALLIN [id number] 00:00:00 00:00:00 Only Unassigned, ADONIS 350.1.13.10 ity of [place] [facility] 4.2.7.2.686 Ryan as [phone] [address] Results Test Description Test Time Test Comments Results Result Comments Source POCT CREATININE 2022-05-29 20:37:29 Test Item Value Reference Range Interpretation Comme nts POCT Creatinine (test code = 0702433519) 1.8 mg/dL 0.5-1.1 H Lab Interpretation (test code = 02226-0) [facility] [id number] 12:00:00 Test Item Value Reference Range Interpretation [...] 9.4 mg/dL 8.0-10.5 N CA) TROP-I HIGH [id number] 12:00:00 Test Item Value Reference Range Interpretation Comments TROP-I HIGH 6 ng/L 0-34 N CAUTION: Units of the SENSITIVITY (test current te st methodology code = TROPIHS) (ng/L) diffe rfrom the prior test methodolog y (ng/mL) by a factor of 1000. 99th Percentile Upper Reference Limit (URL): Females: 34 ng/LMales: 54 n g/L In order to distinguish acute elevations of h igh sensitivitytrop onin from other clinical conditions, the FourthUnive rsal Definition of M yocardial Infarction stre ssesclinical assessment and the demonstration o f a rise and/orfall in s erial troponin result s above the URL. These resu lts were obtained using Siemens AtellOfferpop IM TnI Hreagent. Results from di fferent methodologies s hould not becompared to o ne another as quantitative results and URLs mayvary by method. CBC W/AUTO [id number] 11:27:00 Test Item Value Reference Range Interpretation [...] (test code NO = MDIFF) CBC W/AUTO [id number] 11:26:00 Test Item Value Reference Range Interpretation [...] code = MDIFF) - CT HEAD/BRAIN W/O [id number] 00:00:00 [facility] : 1950 Sex: F Name: LAURA GREEN [facility] : 1950 Age/S: 70 / F [address] [place] [address] Unit #: [id number] Loc: [place] [address] Phys: Timo Aponte MD Acct: [id number] Dis Date: Status: REG ER PHONE#: [phone] Exam Date: 11/20/2020 1131 FAX #: [phone] Reason: LLE weakness, numbness EXAMS: CPT CODE: [id number] CT HEAD/BRAIN W/O CONT 55790 PROCEDURE INFORMATION: Exam: CT Head Without Contrast Exam date and time: 11/20/2020 11:36 AM Age: 70 years old Clinical indication: Lle weakness, numbness TECHNIQUE: Imaging protocol: Computed tomography of the head without contrast. Radiation optimization: All CT scans at this facility use at least one of these dose optimization techniques: automated exposure control; mA and/or kV adjustment per patient size (includes targeted exams where dose is matched to clinical indication); or [...] Ogden M.D. CC: Timo Aponte MD Technologist:Luisa Lizarraga, RT(R)(CT) CTDI: DLP: Trnscb Date/Time: 11/20/2020 (2571) [email or web address] Orig Print D/T: S: 11/20/2020 (5791) PAGE 1 Signed Report- XR CHEST 2 [id number] [facility] 1950 Sex: F FAX:Timo Aponte MD [phone] [place]: St: REG Name: LAURA GREEN [facility] [place] : 1950 Age/S: 70/F [address] [place] [address] Unit #: [id number] Loc: [place] [address] Phys: Timo Aponte MD Acct: [id number] Dis Date: Status: REG ER PHONE #: [phone] Exam Date: 11/20/2020 113 FAX #: [phone] Reason: LLE weakness, numbness EXAMS: CPT CODE: [id number] XR CHEST 2 V 42070 PROCEDURE INFORMATION: Exam: XR Chest Exam date [...] Bones/joints: Mild to moderate generalized bony degenerative ch anges. Bony structures appear otherwise unremarkable. IMPRESSION: Mild atherosclerotic calcificationdemonstrated within the aorta. at 1151 Reported and signed by: Jaime Evans M.D. CC: Timo Aponte MD Technologist: RT Marquise(R) Trnscrd Date/Time/By: 11/20/2020 (1151) : By: [email or web address] Orig Print D/T: S: 11/20/2020 (1151) PAGE 1 [facility]2020-11-29 17:10:00 Test Item Value Reference Range Interpretation Comments Glucose Lvl (test code = Glucose Lvl) 86 70-99 [facility]2020-11-29 17:10:00 Test Item Value Reference Range Interpretation Comments BUN (test code = BUN) 15 7-22 [place] [id number] 17:10:00 Test Item Value Reference Range Interpretation Comments Creatinine Lvl (test code = Creatinine 1.32 0.50-1.40 Lvl) [facility]2020-11-29 17:10:00 Test Item Value Reference Range Interpretation Comments Sodium Lvl (test code = Sodium Lvl) 140 135-145 [facility]2020-11-29 17:10:00 Test Item Value Reference Range Interpretation Comments Potassium Lvl (test code = Potassium 3.6 3.5-5.1 Lvl) [place] 649540-11-29 17:10:00 Test Item Value Reference Range Interpretation Comments Chloride Lvl (test code = Chloride Lvl) 107 95-109 [place] 649540-11-29 17:10:00 Test Item Value Reference Range Interpretation Comments CO2 (test code = CO2) 28 24-32 [place] 649540-11-29 17:10:00 Test Item Value Reference Range Interpretation Comments Calcium Lvl (test code = Calcium Lvl) 9.3 8.5-10.5 [place] [address]-11-29 17:10:00 Test Item Value Reference Range Interpretation Comments Albumin Lvl (test code = Albumin Lvl) 3.9 3.5-5.0 [facility]51 Auto [id number] 17:10:00 Test Item Value Reference Range Interpretation Comments ALT (test code = ALT) 17 See_Comment [Auto mated message] The system which ge nerated this result transmit ethel reference range : <=65. The reference range was not used to interpr et this result as za l/abnormal. [facility]51 Auto [id number] 17:10:00 Test Item Value Reference Range Interpretation Comments AST (test code = AST) 10 See_Comment [Auto mated message] The system which ge nerated this result transmit ethel reference range : <=37. The reference range was not used to interpr et this result as za l/abnormal. [facility] [employer] [id number] 17:10:00 Test Item Value Reference Range Interpretation Comments AGAP (test code = AGAP) 8.6 10.0-20.0 [facility]51 Auto [id number] 17:10:00 Test Item Value Reference Range Interpretation Comments B/C Ratio (test code = B/C Ratio) 11 1 6-25 [facility] [email or web address] [id number] 17:10:00 Test Item Value Reference Range Interpretation Comments eGFR (test code = eGFR) 41 [facility]51 Auto [id number] 17:10:00 Test Item Value Reference Range Interpretation Comments Total Protein (test code = Total 8.7 6.4-8.4 Protein) [facility] HospitalDermApproved [id number] 17:10:00 Test Item Value Reference Range Interpretation Comments Alk Phos (test code = Alk Phos) 92 39-136 [facility]51 Auto [id number] 17:10:00 Test Item Value Reference Range Interpretation Comments Bili Total (test code = Bili Total) 0.8 0.2-1.3 [facility] [email or web address] [id number] 17:10:00 Test Item Value Reference Range Interpretation Comments Globulin (test code = Globulin) 4.8 2.7-4.2 [facility] [email or web address] [id number] 17:10:00 Test Item Value Reference Range Interpretation Comments A/G Ratio (test code = A/G Ratio) 0.8 1 0.7-1.6 [facility] [id number] 17:10:00 Test Item Value Reference Range Interpretation Comments Lipase Lvl (test code = Lipase Lvl) 146 73-393 [facility] HospitalGpnkyakIAYHAUEXFH4613-17-27 17:10:00 Test Item Value Reference Range Interpretation Comments WBC (test code = WBC) 9.4 3.7-10.4 [facility] HospitalQcjssjlPSGVDTAOCS5046-05-77 17:10:00 Test Item Value Reference Range Interpretation Comments RBC (test code = RBC) 4.77 4.20-5.40 [facility] HospitalLwxuhhnTFTWRNZOVQ5478-60-30 17:10:00 Test Item Value Reference Range Interpretation Comments Hgb (test code = Hgb) 12.9 12.0-16.0 [facility] HospitalTeawknpLFEYCJVLMD2797-84-73 17:10:00 Test Item Value Reference Range Interpretation Comments Hct (test code = Hct) 39.6 36.0-48.0 [facility] HospitalIyqzabgSLEEECQVQY8348-48-14 17:10:00 Test Item Value Reference Range Interpretation Comments MCV (test code = MCV) 83.0 80.0-98.0 [facility] HospitalOzatstsDBYFDMTYWX3607-98-11 17:10:00 Test Item Value Reference Range Interpretation Comments MCH (test code = MCH) 27.1 pg 27.0-31.0 [facility] HospitalYvibyorBCYODWOEQL6433-08-03 17:10:00 Test Item Value Reference Range Interpretation Comments MCHC (test code = MCHC) 32.6 32.0-36.0 [facility] HospitalUyvazveLNWKXJVESF0958-19-12 17:10:00 Test Item Value Reference Range Interpretation Comments RDW (test code = RDW) 14.9 11.5-14.5 [facility] HospitalJmgtxngYXXSWKIQFB0013-90-05 17:10:00 Test Item Value Reference Range Interpretation Comments Platelet (test code = Platelet) 154 133-450 [facility] HospitalNbswrnmYDYAQCQCCC8465-89-99 17:10:00 Test Item Value Reference Range Interpretation Comments MPV (test code = MPV) 8.8 7.4-10.4 [facility] HospitalJybhmzcDRRCZDLHFR9645-81-01 17:10:00 Test Item Value Reference Range Interpretation Comments Segs (test code = Segs) 68.5 45.0-75.0 [facility]PyzbybsWYXYOYVKRP8138-92-67 17:10:00 Test Item Value Reference Range Interpretation Comments Lymphocytes (test code = Lymphocytes) 20.6 20.0-40.0 [facility] CenterWwebslbBDBDXMGSKL7048-75-96 17:10:00 Test Item Value Reference Range Interpretation Comments Monocytes (test code = Monocytes) 8.8 2.0-12.0 [facility] CenterRsrybbzTTRRBVOPPV0447-77-57 17:10:00 Test Item Value Reference Range Interpretation Comments Eosinophils (test code = 0.8 See_Comment [A utomated message] The Eosinophils) system which ge nerated this result tra nsmitted reference range : <=4.0. The reference r ge[place] was not used to int erpret this result as normal/abnormal . [facility] CenterXtzmyejZIRVLHPILD7736-95-56 17:10:00 Test Item Value Reference Range Interpretation Comments Basophils (test code = 1.3 See_Comment [Aut omated message] The Basophils) system which ge nerated this result tra nsmitted reference range : <=1.0. The reference r georges was not used to int erpret this result as normal/abnormal . [facility] CenterGxnrtbpACCNKEVXXG1956-44-23 17:10:00 Test Item Value Reference Range Interpretation Comments Neutrophils # (test code = Neutrophils 6.4 1.5-8.1 #) [facility] CenterTmgxcuzTSSVAADSCZ1905-21-33 17:10:00 Test Item Value Reference Range Interpretation Comments Lymphocytes # (test code = Lymphocytes 1.9 1.0-5.5 #) [facility] CenterGblylfyZXIMAQXBHU3333-96-54 17:10:00 Test Item Value Reference Range Interpretation Comments Monocytes # (test code 0.8 See_Comment [Aut omated message] The = Monocytes #) system which generated this result tra nsmitted reference range : <=0.8. The reference r georges was not used to int erpret this result as normal/abnormal . [facility] CenterWrtlpxyRKJJQOKTET0874-66-26 17:10:00 Test Item Value Reference Range Interpretation Comments Eosinophils # (test code 0.1 See_Comment [A utomated message] The = Eosinophils #) system whic h generated this result tra nsmitted reference range : <=0.5. The reference r georges was not used to int erpret this result as normal/abnormal . [facility] CenterPmmijffUYYMMYBZXB1187-02-40 17:10:00 Test Item Value Reference Range Interpretation Comments Basophils # (test code 0.1 See_Comment [Aut omated message] The = Basophils #) system which generated this result tra nsmitted reference range : <=0.2. The reference r georges was not used to int erpret this result as normal/abnormal . [facility] AND [id number] 17:10:00 Test Item Value Reference Range Interpretation Comments UA Color (test code = Yellow *NA*(02/19/20 UA Color) 11:10 AM) [facility] AND [id number] 17:10:00 Test Item Value Reference Range Interpretation Comments UA Turbidity (test code = Clear (02/19/20 UA Turbidity) 11:10 AM) [facility] AND [id number] 17:10:00 Test Item Value Reference Range Interpretation Comments UA Spec Grav (test code = UA Spec 1.006 1 Grav) [facility] AND [id number] 17:10:00 Test Item Value Reference Range Interpretation Comments UA pH (test code = UA pH) 6.0 1 5.0-8.0 [facility] AND [id number] 17:10:00 Test Item Value Reference Range Interpretation Comments UA Protein (test code = UA Protein) 100 mg/dL [facility] AND [id number] 17:10:00 Test Item Value Reference Range Interpretation Comments UA Glucose (test code = UA Negative mg/dL Glucose) [facility] AND [id number] 17:10:00 Test Item Value Reference Range Interpretation Comments UA Bili (test code = Negative *NA*(02/19/20 UA Bili) 11:10 AM) [facility] AND [id number] 17:10:00 Test Item Value Reference Range Interpretation Comments UA Blood (test code = Small *ABN*(02/19/20 UA Blood) 11:10 AM) [facility] AND [id number] 17:10:00 Test Item Value Reference Range Interpretation Comments UA Nitrite (test code Negative (02/19/20 = UA Nitrite) 11:10 AM) [facility] AND [id number] 17:10:00 Test Item Value Reference Range Interpretation Comments UA Leuk Est (test Negative (02/19/20 11:10 code = UA Leuk Est) AM) [facility] AND [id number] 17:10:00 Test Item Value Reference Range Interpretation Comments UA Sq Epi (test code = UA Sq Occasional /LPF Epi) [facility] AND [id number] 17:10:00 Test Item Value Reference Range Interpretation Comments UA WBC (test code = 1 See_Comment [Automa ethel message] The UA WBC) system which ge nerated this result transmit ethel reference range : <=5. The reference range was not used to interpr et this result as za l/abnormal. [facility] AND [id number] 17:10:00 Test Item Value Reference Range Interpretation Comments UA RBC (test code = 4 See_Comment [Automa ethel message] The UA RBC) system which ge nerated this result transmit ethel reference range : <=2. The reference range was not used to interpr et this result as za l/abnormal. [facility] AND [id number] 17:10:00 Test Item Value Reference Range Interpretation Comments UA Bacteria (test code = UA Occasional /HPF Bacteria) [facility] AND [id number] 17:10:00 Test Item Value Reference Range Interpretation Comments UA Ketones (test code = UA Ketones) Negative [facility] AND [id number] 17:10:00 Test Item Value Reference Range Interpretation Comments UA Urobilinogen (test code = UA <=1.0 mg/dL 0.1-1.0 Urobilinogen) [facility]2020-11-29 17:10:00 Test Item Value Reference Range Interpretation Comments Glucose Lvl (test code = Glucose Lvl) 86 70-99 [facility]2020-11-29 17:10:00 Test Item Value Reference Range Interpretation Comments BUN (test code = BUN) 15 7-22 [facility]2020-11-29 17:10:00 Test Item Value Reference Range Interpretation Comments Creatinine Lvl (test code = Creatinine 1.32 0.50-1.40 Lvl) [facility]2020-11-29 17:10:00 Test Item Value Reference Range Interpretation Comments Sodium Lvl (test code = Sodium Lvl) 140 135-145 [facility]2020-11-29 17:10:00 Test Item Value Reference Range Interpretation Comments Potassium Lvl (test code = Potassium 3.6 3.5-5.1 Lvl) [facility]51 Auto [id number] 17:10:00 Test Item Value Reference Range Interpretation Comments Chloride Lvl (test code = Chloride Lvl) 107 95-109 [facility]51 Auto [id number] 17:10:00 Test Item Value Reference Range Interpretation Comments CO2 (test code = CO2) 28 24-32 [facility]51 Auto [id number] 17:10:00 Test Item Value Reference Range Interpretation Comments Calcium Lvl (test code = Calcium Lvl) 9.3 8.5-10.5 [facility] [employer] [id number] 17:10:00 Test Item Value Reference Range Interpretation Comments Albumin Lvl (test code = Albumin Lvl) 3.9 3.5-5.0 [facility] [employer] [id number] 17:10:00 Test Item Value Reference Range Interpretation Comments ALT (test code = ALT) 17 See_Comment [Auto mated message] The system which ge nerated this result transmit ethel reference range : <=65. The reference range was not used to interpr et this result as za l/abnormal. [facility] [employer] [id number] 17:10:00 Test Item Value Reference Range Interpretation Comments AST (test code = AST) 10 See_Comment [Auto mated message] The system which ge nerated this result transmit ethel reference range : <=37. The reference range was not used to interpr et this result as za l/abnormal. [facility] [employer] [id number] 17:10:00 Test Item Value Reference Range Interpretation Comments AGAP (test code = AGAP) 8.6 10.0-20.0 [facility] [employer] [id number] 17:10:00 Test Item Value Reference Range Interpretation Comments B/C Ratio (test code = B/C Ratio) 11 1 6-25 [facility] [employer] [id number] 17:10:00 Test Item Value Reference Range Interpretation Comments eGFR (test code = eGFR) 41 [facility]51 Auto [id number] 17:10:00 Test Item Value Reference Range Interpretation Comments Total Protein (test code = Total 8.7 6.4-8.4 Protein) [facility]2020-11-29 17:10:00 Test Item Value Reference Range Interpretation Comments Alk Phos (test code = Alk Phos) 92 39-136 [facility]2020-11-29 17:10:00 Test Item Value Reference Range Interpretation Comments Bili Total (test code = Bili Total) 0.8 0.2-1.3 [place] 649540-11-29 17:10:00 Test Item Value Reference Range Interpretation Comments Globulin (test code = Globulin) 4.8 2.7-4.2 [place] 649540-11-29 17:10:00 Test Item Value Reference Range Interpretation Comments A/G Ratio (test code = A/G Ratio) 0.8 1 0.7-1.6 [place] 649540-11-29 17:10:00 Test Item Value Reference Range Interpretation Comments Lipase Lvl (test code = Lipase Lvl) 146 73-393 [facility] CenterVqrdsykLPLOMZDXWU7145-81-02 17:10:00 Test Item Value Reference Range Interpretation Comments WBC (test code = WBC) 9.4 3.7-10.4 [place] 091700-11-29 17:10:00 Test Item Value Reference Range Interpretation Comments RBC (test code = RBC) 4.77 4.20-5.40 [place] 091700-11-29 17:10:00 Test Item Value Reference Range Interpretation Comments Hgb (test code = Hgb) 12.9 12.0-16.0 [place] 091700-11-29 17:10:00 Test Item Value Reference Range Interpretation Comments Hct (test code = Hct) 39.6 36.0-48.0 [place] 091700-11-29 17:10:00 Test Item Value Reference Range Interpretation Comments MCV (test code = MCV) 83.0 80.0-98.0 [place] 091700-11-29 17:10:00 Test Item Value Reference Range Interpretation Comments MCH (test code = MCH) 27.1 pg 27.0-31.0 [place] 091700-11-29 17:10:00 Test Item Value Reference Range Interpretation Comments MCHC (test code = MCHC) 32.6 32.0-36.0 [place] [address]-11-29 17:10:00 Test Item Value Reference Range Interpretation Comments RDW (test code = RDW) 14.9 11.5-14.5 [facility] CenterAuyjtjoUAGDHEGPHV3513-08-83 17:10:00 Test Item Value Reference Range Interpretation Comments Platelet (test code = Platelet) 154 133-450 [facility] CenterWkguqulJCSIFHOIFI1263-24-99 17:10:00 Test Item Value Reference Range Interpretation Comments MPV (test code = MPV) 8.8 7.4-10.4 [facility] CenterTybssvrYRKBJQZRVW3443-55-36 17:10:00 Test Item Value Reference Range Interpretation Comments Segs (test code = Segs) 68.5 45.0-75.0 [facility] CenterRobasiaFWNHPVEISD3448-87-89 17:10:00 Test Item Value Reference Range Interpretation Comments Lymphocytes (test code = Lymphocytes) 20.6 20.0-40.0 [facility] CenterLganwvaXHXSOCAKAN8609-82-11 17:10:00 Test Item Value Reference Range Interpretation Comments Monocytes (test code = Monocytes) 8.8 2.0-12.0 [facility] CenterFfqgodrITCMVKJLSL0211-68-63 17:10:00 Test Item Value Reference Range Interpretation Comments Eosinophils (test code = 0.8 See_Comment [A utomated message] The Eosinophils) system which ge nerated this result tra nsmitted reference range : <=4.0. The reference r georges was not used to int erpret this result as normal/abnormal . [facility] CenterVfayifbSIJLVAYJGV1359-96-15 17:10:00 Test Item Value Reference Range Interpretation Comments Basophils (test code = 1.3 See_Comment [Aut omated message] The Basophils) system which ge nerated this result tra nsmitted reference range : <=1.0. The reference r georges was not used to int erpret this result as normal/abnormal . [facility] CenterVuwjatcNSJJFQKDCM9443-12-71 17:10:00 Test Item Value Reference Range Interpretation Comments Neutrophils # (test code = Neutrophils 6.4 1.5-8.1 #) [facility] CenterMyphynpYWOKTERGTU3777-63-23 17:10:00 Test Item Value Reference Range Interpretation Comments Lymphocytes # (test code = Lymphocytes 1.9 1.0-5.5 #) [facility] CenterFkfjvynIZPOOKQBTF6071-48-28 17:10:00 Test Item Value Reference Range Interpretation Comments Monocytes # (test code 0.8 See_Comment [Aut omated message] The = Monocytes #) system which generated this result tra nsmitted reference range : <=0.8. The reference r georges was not used to int erpret this result as normal/abnormal . [facility] CenterXfueptkOBOFALIQOO9646-00-51 17:10:00 Test Item Value Reference Range Interpretation Comments Eosinophils # (test code 0.1 See_Comment [A utomated message] The = Eosinophils #) system whic h generated this result tra nsmitted reference range : <=0.5. The reference r georges was not used to int erpret this result as normal/abnormal . [facility] CenterCgekkbzUBJODABYHT0857-46-62 17:10:00 Test Item Value Reference Range Interpretation Comments Basophils # (test code 0.1 See_Comment [Aut omated message] The = Basophils #) system which generated this result tra nsmitted reference range : <=0.2. The reference r georges was not used to int erpret this result as normal/abnormal . [facility] AND [id number] 17:10:00 Test Item Value Reference Range Interpretation Comments UA Color (test code = Yellow *NA*(02/19/20 UA Color) 11:10 AM) [facility] AND [id number] 17:10:00 Test Item Value Reference Range Interpretation Comments UA Turbidity (test code = Clear (02/19/20 UA Turbidity) 11:10 AM) [facility] AND [id number] 17:10:00 Test Item Value Reference Range Interpretation Comments UA Spec Grav (test code = UA Spec 1.006 1 Grav) [facility] AND [id number] 17:10:00 Test Item Value Reference Range Interpretation Comments UA pH (test code = UA pH) 6.0 1 5.0-8.0 [facility] AND [id number] 17:10:00 Test Item Value Reference Range Interpretation Comments UA Protein (test code = UA Protein) 100 mg/dL [facility] AND [id number] 17:10:00 Test Item Value Reference Range Interpretation Comments UA Glucose (test code = UA Negative mg/dL Glucose) [facility] AND [id number] 17:10:00 Test Item Value Reference Range Interpretation Comments UA Bili (test code = Negative *NA*(02/19/20 [facility] Bili) 11:10 AM) [facility] [id number] 17:10:00 Test Item Value Reference Range Interpretation Comments UA Blood (test code = Small *ABN*(02/19/20 UA Blood) 11:10 AM) [facility] [id number] 17:10:00 Test Item Value Reference Range Interpretation Comments UA Nitrite (test code Negative (02/19/20 = UA Nitrite) 11:10 AM) [facility] [id number] 17:10:00 Test Item Value Reference Range Interpretation Comments UA Leuk Est (test Negative (02/19/20 11:10 code = UA Leuk Est) AM) [facility] [id number] 17:10:00 Test Item Value Reference Range Interpretation Comments UA Sq Epi (test code = UA Sq Occasional /LPF Epi) [facility] [id number] 17:10:00 Test Item Value Reference Range Interpretation Comments UA WBC (test code = 1 See_Comment [Automa ethel message] The UA WBC) system which ge nerated this result transmit ethel reference range : <=5. The reference range was not used to interpr et this result as za l/abnormal. [facility] [id number] 17:10:00 Test Item Value Reference Range Interpretation Comments UA RBC (test code = 4 See_Comment [Automa ethel message] The UA RBC) system which ge nerated this result transmit ethel reference range : <=2. The reference range was not used to interpr et this result as za l/abnormal. [facility] [id number] 17:10:00 Test Item Value Reference Range Interpretation Comments UA Bacteria (test code = UA Occasional /HPF Bacteria) [facility] [id number] 17:10:00 Test Item Value Reference Range Interpretation Comments UA Ketones (test code = UA Ketones) Negative [facility] [id number] 17:10:00 Test Item Value Reference Range Interpretation Comments UA Urobilinogen (test code = UA <=1.0 mg/dL 0.1-1.0 Urobilinogen) [facility] [id number] 17:10:00 Test Item Value Reference Range Interpretation Comments Glucose Lvl (test code = Glucose Lvl) 86 70-99 [place] [id number] 17:10:00 Test Item Value Reference Range Interpretation Comments BUN (test code = BUN) 15 7-22 [place] 649540-11-29 17:10:00 Test Item Value Reference Range Interpretation Comments Creatinine Lvl (test code = Creatinine 1.32 0.50-1.40 Lvl) [place] 649540-11-29 17:10:00 Test Item Value Reference Range Interpretation Comments Sodium Lvl (test code = Sodium Lvl) 140 135-145 [place] [address]-11-29 17:10:00 Test Item Value Reference Range Interpretation Comments Potassium Lvl (test code = Potassium 3.6 3.5-5.1 Lvl) [place] [address]-11-29 17:10:00 Test Item Value Reference Range Interpretation Comments Chloride Lvl (test code = Chloride Lvl) 107 95-109 [place] 649540-11-29 17:10:00 Test Item Value Reference Range Interpretation Comments CO2 (test code = CO2) 28 24-32 [place] [address]-11-29 17:10:00 Test Item Value Reference Range Interpretation Comments Calcium Lvl (test code = Calcium Lvl) 9.3 8.5-10.5 [place] 649540-11-29 17:10:00 Test Item Value Reference Range Interpretation Comments Albumin Lvl (test code = Albumin Lvl) 3.9 3.5-5.0 [place] 649540-11-29 17:10:00 Test Item Value Reference Range Interpretation Comments ALT (test code = ALT) 17 See_Comment [Auto mated message] The system which ge nerated this result transmit ethel reference range : <=65. The reference range was not used to interpr et this result as za l/abnormal. [place] [address]-11-29 17:10:00 Test Item Value Reference Range Interpretation Comments AST (test code = AST) 10 See_Comment [Auto mated message] The system which ge nerated this result transmit ethel reference range : <=37. The reference range was not used to interpr et this result as za l/abnormal. [place] 649540-11-29 17:10:00 Test Item Value Reference Range Interpretation Comments AGAP (test code = AGAP) 8.6 10.0-20.0 [facility]2020-11-29 17:10:00 Test Item Value Reference Range Interpretation Comments B/C Ratio (test code = B/C Ratio) 11 1 6-25 [place] 649540-11-29 17:10:00 Test Item Value Reference Range Interpretation Comments eGFR (test code = eGFR) 41 [place] 649540-11-29 17:10:00 Test Item Value Reference Range Interpretation Comments Total Protein (test code = Total 8.7 6.4-8.4 Protein) [facility]2020-11-29 17:10:00 Test Item Value Reference Range Interpretation Comments Alk Phos (test code = Alk Phos) 92 39-136 [facility]2020-11-29 17:10:00 Test Item Value Reference Range Interpretation Comments Bili Total (test code = Bili Total) 0.8 0.2-1.3 [place] 649540-11-29 17:10:00 Test Item Value Reference Range Interpretation Comments Globulin (test code = Globulin) 4.8 2.7-4.2 [place] 649540-11-29 17:10:00 Test Item Value Reference Range Interpretation Comments A/G Ratio (test code = A/G Ratio) 0.8 1 0.7-1.6 [place] 649540-11-29 17:10:00 Test Item Value Reference Range Interpretation Comments Lipase Lvl (test code = Lipase Lvl) 146 73-393 [facility]FbnhwgsCRPAKCOSCN3494-71-44 17:10:00 Test Item Value Reference Range Interpretation Comments WBC (test code = WBC) 9.4 3.7-10.4 [place] 091700-11-29 17:10:00 Test Item Value Reference Range Interpretation Comments RBC (test code = RBC) 4.77 4.20-5.40 [place] 091700-11-29 17:10:00 Test Item Value Reference Range Interpretation Comments Hgb (test code = Hgb) 12.9 12.0-16.0 [place] 091700-11-29 17:10:00 Test Item Value Reference Range Interpretation Comments Hct (test code = Hct) 39.6 36.0-48.0 [facility] C[id number] 17:10:00 Test Item Value Reference Range Interpretation Comments MCV (test code = MCV) 83.0 80.0-98.0 [facility] CenterKjlospxVWKISIOEEU8805-68-61 17:10:00 Test Item Value Reference Range Interpretation Comments MCH (test code = MCH) 27.1 pg 27.0-31.0 [facility] CenterDaijfchZQKEVOMSYC1139-78-45 17:10:00 Test Item Value Reference Range Interpretation Comments MCHC (test code = MCHC) 32.6 32.0-36.0 [facility] CenterBcvkbbfNBGEPSFYFI9419-63-92 17:10:00 Test Item Value Reference Range Interpretation Comments RDW (test code = RDW) 14.9 11.5-14.5 [facility] CenterQymnhqnKOZXFFXDHG9360-78-02 17:10:00 Test Item Value Reference Range Interpretation Comments Platelet (test code = Platelet) 154 133-450 [facility] CenterGnckhitKRDFQRGMVQ4978-50-61 17:10:00 Test Item Value Reference Range Interpretation Comments MPV (test code = MPV) 8.8 7.4-10.4 [facility] CenterRhgbsmvWSAAYXQZCN3528-25-45 17:10:00 Test Item Value Reference Range Interpretation Comments Segs (test code = Segs) 68.5 45.0-75.0 [facility] CenterVrtzzhbOIAJDSSADO3631-89-51 17:10:00 Test Item Value Reference Range Interpretation Comments Lymphocytes (test code = Lymphocytes) 20.6 20.0-40.0 [facility] CenterTrkrpdwLXKMHIBZBJ3321-22-71 17:10:00 Test Item Value Reference Range Interpretation Comments Monocytes (test code = Monocytes) 8.8 2.0-12.0 [place] 091700-11-29 17:10:00 Test Item Value Reference Range Interpretation Comments Eosinophils (test code = 0.8 See_Comment [A utomated message] The Eosinophils) system which ge nerated this result tra nsmitted reference range : <=4.0. The reference r [place] was not used to int erpret this result as normal/abnormal . [facility] CenterQmxigteJEZVBXAUSF3670-41-20 17:10:00 Test Item Value Reference Range Interpretation Comments Basophils (test code = 1.3 See_Comment [Aut omated message] The Basophils) system which ge nerated this result tra nsmitted reference range : <=1.0. The reference r ge[place] was not used to int erpret this result as normal/abnormal . [facility] CenterYwpqzczFSKHGYBOWG6857-94-25 17:10:00 Test Item Value Reference Range Interpretation Comments Neutrophils # (test code = Neutrophils 6.4 1.5-8.1 #) [facility] CenterCsazvryUYRWXUROBH5632-92-73 17:10:00 Test Item Value Reference Range Interpretation Comments Lymphocytes # (test code = Lymphocytes 1.9 1.0-5.5 #) [facility] CenterIpfirfkWOKBSXZKLO9849-03-12 17:10:00 Test Item Value Reference Range Interpretation Comments Monocytes # (test code 0.8 See_Comment [Aut omated message] The = Monocytes #) system which generated this result tra nsmitted reference range : <=0.8. The reference r ge[place] was not used to int erpret this result as normal/abnormal . [facility] CenterBfjpdffYOERNFKGSD8683-19-41 17:10:00 Test Item Value Reference Range Interpretation Comments Eosinophils # (test code 0.1 See_Comment [A utomated message] The = Eosinophils #) system whic h generated this result tra nsmitted reference range : <=0.5. The reference r ge[place] was not used to int erpret this result as normal/abnormal . [facility] CenterSzdhwvgOXUHCDKIKW2656-97-43 17:10:00 Test Item Value Reference Range Interpretation Comments Basophils # (test code 0.1 See_Comment [Aut omated message] The = Basophils #) system which generated this result tra nsmitted reference range : <=0.2. The reference r ge[place] was not used to int erpret this result as normal/abnormal . [facility] AND [id number] 17:10:00 Test Item Value Reference Range Interpretation Comments UA Color (test code = Yellow *NA*(02/19/20 UA Color) 11:10 AM) [facility] AND [id number] 17:10:00 Test Item Value Reference Range Interpretation Comments UA Turbidity (test code = Clear (02/19/20 UA Turbidity) 11:10 AM) [facility] AND [id number] 17:10:00 Test Item Value Reference Range Interpretation Comments UA Spec Grav (test code = UA Spec 1.006 1 Grav) [facility] [id number] 17:10:00 Test Item Value Reference Range Interpretation Comments UA pH (test code = UA pH) 6.0 1 5.0-8.0 [facility] [id number] 17:10:00 Test Item Value Reference Range Interpretation Comments UA Protein (test code = UA Protein) 100 mg/dL [facility] [id number] 17:10:00 Test Item Value Reference Range Interpretation Comments UA Glucose (test code = UA Negative mg/dL Glucose) [facility] AND [id number] 17:10:00 Test Item Value Reference Range Interpretation Comments UA Bili (test code = Negative *NA*(02/19/20 UA Bili) 11:10 AM) [facility] AND [id number] 17:10:00 Test Item Value Reference Range Interpretation Comments UA Blood (test code = Small *ABN*(02/19/20 UA Blood) 11:10 AM) [facility] AND [id number] 17:10:00 Test Item Value Reference Range Interpretation Comments UA Nitrite (test code Negative (02/19/20 = UA Nitrite) 11:10 AM) [facility] AND [id number] 17:10:00 Test Item Value Reference Range Interpretation Comments UA Leuk Est (test Negative (02/19/20 11:10 code = UA Leuk Est) AM) [facility] [id number] 17:10:00 Test Item Value Reference Range Interpretation Comments UA Sq Epi (test code = UA Sq Occasional /LPF Epi) [facility] [id number] 17:10:00 Test Item Value Reference Range Interpretation Comments UA WBC (test code = 1 See_Comment [Automa ethel message] The UA WBC) system which ge nerated this result transmit ethel reference range : <=5. The reference range was not used to interpr et this result as za l/abnormal. [facility] [id number] 17:10:00 Test Item Value Reference Range Interpretation Comments UA RBC (test code = 4 See_Comment [Automa ethel message] The UA RBC) system which ge nerated this result transmit ethel reference range : <=2. The reference range was not used to interpr et this result as za l/abnormal. [facility] AND [id number] 17:10:00 Test Item Value Reference Range Interpretation Comments UA Bacteria (test code = UA Occasional /HPF Bacteria) [facility] AND [id number] 17:10:00 Test Item Value Reference Range Interpretation Comments UA Ketones (test code = UA Ketones) Negative [facility] AND [id number] 17:10:00 Test Item Value Reference Range Interpretation Comments UA Urobilinogen (test code = UA <=1.0 mg/dL 0.1-1.0 Urobilinogen) [facility]2020-11-29 17:10:00 Test Item Value Reference Range Interpretation Comments Glucose Lvl (test code = Glucose Lvl) 86 70-99 [facility]2020-11-29 17:10:00 Test Item Value Reference Range Interpretation Comments BUN (test code = BUN) 15 7-22 [facility]2020-11-29 17:10:00 Test Item Value Reference Range Interpretation Comments Creatinine Lvl (test code = Creatinine 1.32 0.50-1.40 Lvl) [facility]2020-11-29 17:10:00 Test Item Value Reference Range Interpretation Comments Sodium Lvl (test code = Sodium Lvl) 140 135-145 [facility]2020-11-29 17:10:00 Test Item Value Reference Range Interpretation Comments Potassium Lvl (test code = Potassium 3.6 3.5-5.1 Lvl) [facility]2020-11-29 17:10:00 Test Item Value Reference Range Interpretation Comments Chloride Lvl (test code = Chloride Lvl) 107 95-109 [facility]2020-11-29 17:10:00 Test Item Value Reference Range Interpretation Comments CO2 (test code = CO2) 28 24-32 [facility]2020-11-29 17:10:00 Test Item Value Reference Range Interpretation Comments Calcium Lvl (test code = Calcium Lvl) 9.3 8.5-10.5 [facility]2020-11-29 17:10:00 Test Item Value Reference Range Interpretation Comments Albumin Lvl (test code = Albumin Lvl) 3.9 3.5-5.0 [facility]2020-11-29 17:10:00 Test Item Value Reference Range Interpretation Comments ALT (test code = ALT) 17 See_Comment [Auto mated message] The system which ge nerated this result transmit ethel reference range : <=65. The reference range was not used to interpr et this result as za l/abnormal. [facility] [employer]2020-11-29 17:10:00 Test Item Value Reference Range Interpretation Comments AST (test code = AST) 10 See_Comment [Auto mated message] The system which ge nerated this result transmit ethel reference range : <=37. The reference range was not used to interpr et this result as za l/abnormal. [facility] [employer]2020-11-29 17:10:00 Test Item Value Reference Range Interpretation Comments AGAP (test code = AGAP) 8.6 10.0-20.0 [facility] [employer]2020-11-29 17:10:00 Test Item Value Reference Range Interpretation Comments B/C Ratio (test code = B/C Ratio) 11 1 6-25 [facility] [employer]2020-11-29 17:10:00 Test Item Value Reference Range Interpretation Comments eGFR (test code = eGFR) 41 [facility] [employer]2020-11-29 17:10:00 Test Item Value Reference Range Interpretation Comments Total Protein (test code = Total 8.7 6.4-8.4 Protein) [facility] [employer] [id number] 17:10:00 Test Item Value Reference Range Interpretation Comments Alk Phos (test code = Alk Phos) 92 39-136 [facility] [employer] [id number] 17:10:00 Test Item Value Reference Range Interpretation Comments Bili Total (test code = Bili Total) 0.8 0.2-1.3 [facility] [employer]2020-11-29 17:10:00 Test Item Value Reference Range Interpretation Comments Globulin (test code = Globulin) 4.8 2.7-4.2 [facility] [employer]2020-11-29 17:10:00 Test Item Value Reference Range Interpretation Comments A/G Ratio (test code = A/G Ratio) 0.8 1 0.7-1.6 [facility] [employer]2020-11-29 17:10:00 Test Item Value Reference Range Interpretation Comments Lipase Lvl (test code = Lipase Lvl) 146 [address]3393 [facility] CenterYcyaghrIFNGHYMATE8790-43-68 17:10:00 Test Item Value Reference Range Interpretation Comments WBC (test code = WBC) 9.4 3.7-10.4 [facility]ptvoNWWEYQZPVK3762-33-36 17:10:00 Test Item Value Reference Range Interpretation Comments RBC (test code = RBC) 4.77 4.20-5.40 [facility] HospitalQaqrpxtAOVSUUVHJJ8956-10-66 17:10:00 Test Item Value Reference Range Interpretation Comments Hgb (test code = Hgb) 12.9 12.0-16.0 [facility] CenterXrtiuoaVRIZXFGQVV7992-62-86 17:10:00 Test Item Value Reference Range Interpretation Comments Hct (test code = Hct) 39.6 36.0-48.0 [facility] CenterSszgineVJGMXYQUMN0956-28-98 17:10:00 Test Item Value Reference Range Interpretation Comments MCV (test code = MCV) 83.0 80.0-98.0 [facility] CenterKfvvopkVRYCLIRRPX3421-38-08 17:10:00 Test Item Value Reference Range Interpretation Comments MCH (test code = MCH) 27.1 pg 27.0-31.0 [facility] CenterCzogxldWRMSOXTBWE8326-16-25 17:10:00 Test Item Value Reference Range Interpretation Comments MCHC (test code = MCHC) 32.6 32.0-36.0 [facility] HospitalTrehdbcYWBWDWOPHF3815-59-50 17:10:00 Test Item Value Reference Range Interpretation Comments RDW (test code = RDW) 14.9 11.5-14.5 [facility] CenterIdmgjhuBXQLLFBNAB7289-23-38 17:10:00 Test Item Value Reference Range Interpretation Comments Platelet (test code = Platelet) 154 133-450 [facility] CenterJyoncuqDHUHQMRFRU7934-61-68 17:10:00 Test Item Value Reference Range Interpretation Comments MPV (test code = MPV) 8.8 7.4-10.4 [facility] CenterAfdsliwDNLUSQPXPG5345-77-65 17:10:00 Test Item Value Reference Range Interpretation Comments Segs (test code = Segs) 68.5 45.0-75.0 [facility] CenterCiapofwHJDIZDFLSK7665-94-82 17:10:00 Test Item Value Reference Range Interpretation Comments Lymphocytes (test code = Lymphocytes) 20.6 20.0-40.0 [facility] HospitalFivvluhLQGJWQDIRE1600-12-18 17:10:00 Test Item Value Reference Range Interpretation Comments Monocytes (test code = Monocytes) 8.8 2.0-12.0 [place] 091700-11-29 17:10:00 Test Item Value Reference Range Interpretation Comments Eosinophils (test code = 0.8 See_Comment [A utomated message] The Eosinophils) system which ge nerated this result tra nsmitted reference range : <=4.0. The reference r ge[place] was not used to int erpret this result as normal/abnormal . [place] 091700-11-29 17:10:00 Test Item Value Reference Range Interpretation Comments Basophils (test code = 1.3 See_Comment [Aut omated message] The Basophils) system which ge nerated this result tra nsmitted reference range : <=1.0. The reference r ge[place] was not used to int erpret this result as normal/abnormal . [place] 091700-11-29 17:10:00 Test Item Value Reference Range Interpretation Comments Neutrophils # (test code = Neutrophils 6.4 1.5-8.1 #) [place] [address]-11-29 17:10:00 Test Item Value Reference Range Interpretation Comments Lymphocytes # (test code = Lymphocytes 1.9 1.0-5.5 #) [place] [address]-11-29 17:10:00 Test Item Value Reference Range Interpretation Comments Monocytes # (test code 0.8 See_Comment [Aut omated message] The = Monocytes #) system which generated this result tra nsmitted reference range : <=0.8. The reference r [place] was not used to int erpret this result as normal/abnormal . [place] 091700-11-29 17:10:00 Test Item Value Reference Range Interpretation Comments Eosinophils # (test code 0.1 See_Comment [A utomated message] The = Eosinophils #) system whic h generated this result tra nsmitted reference range : <=0.5. The reference r ge[place] was not used to int erpret this result as normal/abnormal . [place] 091700-11-29 17:10:00 Test Item Value Reference Range Interpretation Comments Basophils # (test code 0.1 See_Comment [Aut omated message] The = Basophils #) system which generated this result tra nsmitted reference range : <=0.2. The reference r ge[place] was not used to int erpret this result as normal/abnormal . [facility] AND [id number] 17:10:00 Test Item Value Reference Range Interpretation Comments UA Color (test code = Yellow *NA*(02/19/20 UA Color) 11:10 AM) [facility] AND [id number] 17:10:00 Test Item Value Reference Range Interpretation Comments UA Turbidity (test code = Clear (02/19/20 UA Turbidity) 11:10 AM) [facility] AND [id number] 17:10:00 Test Item Value Reference Range Interpretation Comments UA Spec Grav (test code = UA Spec 1.006 1 Grav) [facility] AND [id number] 17:10:00 Test Item Value Reference Range Interpretation Comments UA pH (test code = UA pH) 6.0 1 5.0-8.0 [facility] AND [id number] 17:10:00 Test Item Value Reference Range Interpretation Comments UA Protein (test code = UA Protein) 100 mg/dL [facility] AND [id number] 17:10:00 Test Item Value Reference Range Interpretation Comments UA Glucose (test code = UA Negative mg/dL Glucose) [facility] AND [id number] 17:10:00 Test Item Value Reference Range Interpretation Comments UA Bili (test code = Negative *NA*(02/19/20 UA Bili) 11:10 AM) [facility] AND [id number] 17:10:00 Test Item Value Reference Range Interpretation Comments UA Blood (test code = Small *ABN*(02/19/20 UA Blood) 11:10 AM) [facility] AND [id number] 17:10:00 Test Item Value Reference Range Interpretation Comments UA Nitrite (test code Negative (02/19/20 = UA Nitrite) 11:10 AM) [facility] AND [id number] 17:10:00 Test Item Value Reference Range Interpretation Comments UA Leuk Est (test Negative (02/19/20 11:10 code = UA Leuk Est) AM) [facility] AND [id number] 17:10:00 Test Item Value Reference Range Interpretation Comments UA Sq Epi (test code = UA Sq Occasional /LPF Epi) [facility] AND [id number] 17:10:00 Test Item Value Reference Range Interpretation Comments UA WBC (test code = 1 See_Comment [Automa ethel message] The UA WBC) system which ge nerated this result transmit ethel reference range : <=5. The reference range was not used to interpr et this result as za l/abnormal. [facility] AND [id number] 17:10:00 Test Item Value Reference Range Interpretation Comments UA RBC (test code = 4 See_Comment [Automa ethel message] The UA RBC) system which ge nerated this result transmit ethel reference range : <=2. The reference range was not used to interpr et this result as za l/abnormal. [facility] AND [id number] 17:10:00 Test Item Value Reference Range Interpretation Comments UA Bacteria (test code = UA Occasional /HPF Bacteria) [facility] AND [id number] 17:10:00 Test Item Value Reference Range Interpretation Comments UA Ketones (test code = UA Ketones) Negative [facility] AND [id number] 17:10:00 Test Item Value Reference Range Interpretation Comments UA Urobilinogen (test code = UA <=1.0 mg/dL 0.1-1.0 Urobilinogen) [facility]dsnewHAUFKMMORHFR0978-[facility] 14:36:00 Test Item Value Reference Range Interpretation Comments POC Sodium (test code = POC Sodium) 142 135-145 [facility] HospitalAdnddrfMFELAKWGPWTL9400-69-26 14:36:00 Test Item Value Reference Range Interpretation Comments POC Potassium (test code = POC 4.1 3.5-5.1 Potassium) [facility] HospitalWfdebybDJAPWBGTYIMR3455-76-89 14:36:00 Test Item Value Reference Range Interpretation Comments POC Chloride (test code = POC Chloride) 107 95-109 [facility] [facility]TcqesguZFPRBREQGBCR0651-69-14 14:36:00 Test Item Value Reference Range Interpretation Comments POC Carbon Dioxide (test code = POC 25 24-32 Carbon Dioxide) [facility]LupixfpTANZXZGKEBPH9758-61-19 14:36:00 Test Item Value Reference Range Interpretation Comments POC BUN (test code = POC BUN) 17 7-22 [facility] HospitalNoxeuubVGASDBPLRNVZ0823-61-29 14:36:00 Test Item Value Reference Range Interpretation Comments POC Creatinine (test code = POC 1.2 0.5-1.4 Creatinine) [facility] HospitalEweoyviYKGDFGRWXXTV2417-78-08 14:36:00 Test Item Value Reference Range Interpretation Comments POC Glucose (test code = POC Glucose) 102 70-99 [facility] HospitalWrbuflnZZDDCLHQVDYN6043-01-74 14:36:00 Test Item Value Reference Range Interpretation Comments POC Ion Ca (test code = POC Ion Ca) 1.25 1.05-1.25 [facility] HospitalBdzhbqaPYSPBAEQJAOV1610-86-48 14:36:00 Test Item Value Reference Range Interpretation Comments POC Hemoglobin (test code = POC 12.6 12.0-16.0 Hemoglobin) [facility] HospitalXccqsjbLAVXNLCQBTFX1185-93-26 14:36:00 Test Item Value Reference Range Interpretation Comments POC Hematocrit (test code = POC 37.0 36.0-48.0 Hematocrit) [facility] HospitalZiqpsamVGSMPBAXJGJY5506-25-35 14:36:00 Test Item Value Reference Range Interpretation Comments POC AGAP (test code = POC AGAP) 16.0 10.0-20.0 [facility] HospitalXkjgyxqFNPUTOHKMXTC1932-61-67 14:36:00 Test Item Value Reference Range Interpretation Comments eGFR (test code = eGFR) 47 [facility] HospitalAwxqqdxSSIPPXSCCCEF3236-21-11 14:36:00 Test Item Value Reference Range Interpretation Comments POC Disclaimer (test code See Note = POC Disclaimer) *NA*(09/01/19 9:36 AM) [facility] HospitalTgkufovJFFKIEQQMXLS3863-70-67 14:36:00 Test Item Value Reference Range Interpretation Comments POC Sodium (test code = POC Sodium) 142 135-145 [facility] HospitalNvndsuoDJMCBJPJNTID8489-50-63 14:36:00 Test Item Value Reference Range Interpretation Comments POC Potassium (test code = POC 4.1 3.5-5.1 Potassium) [facility] HospitalWvteizdUGHSJURWRKPY5743-92-70 14:36:00 Test Item Value Reference Range Interpretation Comments POC Chloride (test code = POC Chloride) 107 95-109 [facility] HospitalBmnmjhzFCQIDMDPSLZY3269-16-85 14:36:00 Test Item Value Reference Range Interpretation Comments POC Carbon Dioxide (test code = POC 25 24-32 Carbon Dioxide) [facility] HospitalQgoxlthPLXXSCKZJHZN0014-86-51 14:36:00 Test Item Value Reference Range Interpretation Comments POC BUN (test code = POC BUN) 17 7-22 [facility] HospitalJhyrybqDHVTIFHLXQMV4937-26-16 14:36:00 Test Item Value Reference Range Interpretation Comments POC Creatinine (test code = POC 1.2 0.5-1.4 Creatinine) [facility] HospitalIglzubfXRXUFBQVWYGH1446-44-72 14:36:00 Test Item Value Reference Range Interpretation Comments POC Glucose (test code = POC Glucose) 102 70-99 [facility] HospitalMsjdvmlLEEUOPKQCGTO4592-70-14 14:36:00 Test Item Value Reference Range Interpretation Comments POC Ion Ca (test code = POC Ion Ca) 1.25 1.05-1.25 [facility] HospitalDfcjrpxHZNHKTLQNRIM5746-94-86 14:36:00 Test Item Value Reference Range Interpretation Comments POC Hemoglobin (test code = POC 12.6 12.0-16.0 Hemoglobin) [facility] HospitalZjnzajvPVPAHMRTBPAV0278-09-17 14:36:00 Test Item Value Reference Range Interpretation Comments POC Hematocrit (test code = POC 37.0 36.0-48.0 Hematocrit) [facility] HospitalYuzxtbdCYKIBVIZXINP9516-12-26 14:36:00 Test Item Value Reference Range Interpretation Comments POC AGAP (test code = POC AGAP) 16.0 10.0-20.0 [facility] HospitalUnvwahwCETKVAOKYQXO7592-12-31 14:36:00 Test Item Value Reference Range Interpretation Comments eGFR (test code = eGFR) 47 [facility] HospitalGiioffoHHQSRMTRLUNF7339-93-85 14:36:00 Test Item Value Reference Range Interpretation Comments POC Disclaimer (test code See Note = POC Disclaimer) *NA*(09/01/19 9:36 AM) [facility] HospitalHfcymozTTSPUYTLGHXY9619-93-98 14:36:00 Test Item Value Reference Range Interpretation Comments POC Sodium (test code = POC Sodium) 142 135-145 [facility] HospitalPrlfsffZWMOQZPEHYTH2265-78-66 14:36:00 Test Item Value Reference Range Interpretation Comments POC Potassium (test code = POC 4.1 3.5-5.1 Potassium) [facility] HospitalUvtznrwOPWQLOXHUFNR4514-72-58 14:36:00 Test Item Value Reference Range Interpretation Comments POC Chloride (test code = POC Chloride) 107 95-109 [facility] HospitalUaszwlwAKAQFJXDRLPC9015-79-66 14:36:00 Test Item Value Reference Range Interpretation Comments POC Carbon Dioxide (test code = POC 25 24-32 Carbon Dioxide) [facility] HospitalXfcoxopHKEIRRDLUPMZ8182-33-16 14:36:00 Test Item Value Reference Range Interpretation Comments POC BUN (test code = POC BUN) 17 7-22 [facility] HospitalFfcfendBDFBEIYRVDMY0443-16-57 14:36:00 Test Item Value Reference Range Interpretation Comments POC Creatinine (test code = POC 1.2 0.5-1.4 Creatinine) [facility] HospitalEnehdvzOSHDJIBZGRSI3219-03-42 14:36:00 Test Item Value Reference Range Interpretation Comments POC Glucose (test code = POC Glucose) 102 70-99 [facility] HospitalHxpesxtBKXQCTDMVSFE3868-91-48 14:36:00 Test Item Value Reference Range Interpretation Comments POC Ion Ca (test code = POC Ion Ca) 1.25 1.05-1.25 [facility] HospitalQihbetrIOHHXWDPWIBD9750-88-69 14:36:00 Test Item Value Reference Range Interpretation Comments POC Hemoglobin (test code = POC 12.6 12.0-16.0 Hemoglobin) [facility] HospitalMidwpirEUWYSVTUTBPC8925-83-96 14:36:00 Test Item Value Reference Range Interpretation Comments POC Hematocrit (test code = POC 37.0 36.0-48.0 Hematocrit) [facility] HospitalNjswemdZTLBGKJVMZRY9232-15-14 14:36:00 Test Item Value Reference Range Interpretation Comments POC AGAP (test code = POC AGAP) 16.0 10.0-20.0 [facility] HospitalZfzmtnsMNGNXVUWIISI4173-27-89 14:36:00 Test Item Value Reference Range Interpretation Comments eGFR (test code = eGFR) 47 [facility] HospitalFvxtccdQSQJMDGRAICI7966-10-80 14:36:00 Test Item Value Reference Range Interpretation Comments POC Disclaimer (test code See Note = POC Disclaimer) *NA*(09/01/19 9:36 AM) [facility] HospitalVaebnfdRRZFCSLEXAGA4521-25-68 14:36:00 Test Item Value Reference Range Interpretation Comments POC Sodium (test code = POC Sodium) 142 135-145 [facility] HospitalJtrziunUBDLUDSXHTMW6972-26-72 14:36:00 Test Item Value Reference Range Interpretation Comments POC Potassium (test code = POC 4.1 3.5-5.1 Potassium) [facility] HospitalCyjqkaaHQOSDWXZEPWT8326-47-77 14:36:00 Test Item Value Reference Range Interpretation Comments POC Chloride (test code = POC Chloride) 107 95-109 [facility] HospitalAkduhgsYWNUZKYYUVUU5833-11-92 14:36:00 Test Item Value Reference Range Interpretation Comments POC Carbon Dioxide (test code = POC 25 24-32 Carbon Dioxide) [facility] HospitalCtgwzuzJLNFXFLTUHCQ2856-19-41 14:36:00 Test Item Value Reference Range Interpretation Comments POC BUN (test code = POC BUN) 17 7-22 [facility] HospitalBwhbilaYLHTTWJUAAKK2606-82-85 14:36:00 Test Item Value Reference Range Interpretation Comments POC Creatinine (test code = POC 1.2 0.5-1.4 Creatinine) [facility] HospitalUeojrlaYTKZBMFSNBHB4994-27-64 14:36:00 Test Item Value Reference Range Interpretation Comments POC Glucose (test code = POC Glucose) 102 70-99 [facility] HospitalIfvqwleWOECCJYPZDDD2208-47-93 14:36:00 Test Item Value Reference Range Interpretation Comments POC Ion Ca (test code = POC Ion Ca) 1.25 1.05-1.25 [facility] HospitalQfwnpnzBCJZVFEVUNVJ9530-66-94 14:36:00 Test Item Value Reference Range Interpretation Comments POC Hemoglobin (test code = POC 12.6 12.0-16.0 Hemoglobin) [facility] HospitalNdiipxwPDYPOARCZZAU4475-56-66 14:36:00 Test Item Value Reference Range Interpretation Comments POC Hematocrit (test code = POC 37.0 36.0-48.0 Hematocrit) [facility] HospitalHsunnceKEQWPOLMEFKY2144-49-08 14:36:00 Test Item Value Reference Range Interpretation Comments POC AGAP (test code = POC AGAP) 16.0 10.0-20.0 [facility] HospitalGovqwmpOTOYZZAHRTDA5350-92-59 14:36:00 Test Item Value Reference Range Interpretation Comments eGFR (test code = eGFR) 47 [facility] HospitalKizhrolMAGBCYNRIQQS5847-26-10 14:36:00 Test Item Value Reference Range Interpretation Comments POC Disclaimer (test code See Note = POC Disclaimer) *NA*(09/01/19 9:36 AM) [facility] ZJVPMTH2799-29-35 14:18:00 Test Item Value Reference Range Interpretation Comments ABO/Rh (test code = ABO/Rh) O NEG [facility] KGLYZWW6804-40-80 14:18:00 Test Item Value Reference Range Interpretation Comments Antibody Scrn (test Negative (09/01/19 9:18 code = Antibody Scrn) AM) [facility] QFHTJRI5512-46-17 14:18:00 Test Item Value Reference Range Interpretation Comments ABO/Rh (test code = ABO/Rh) O NEG [facility] IQCRHKF2546-18-97 14:18:00 Test Item Value Reference Range Interpretation Comments Antibody Scrn (test Negative (09/01/19 9:18 code = Antibody Scrn) AM) [facility] [id number] 14:18:00 Test Item Value Reference Range Interpretation Comments ABO/Rh (test code = ABO/Rh) O NEG [facility] [id number] 14:18:00 Test Item Value Reference Range Interpretation Comments Antibody Scrn (test Negative (09/01/19 9:18 code = Antibody Scrn) AM) [facility] [id number] 14:18:00 Test Item Value Reference Range Interpretation Comments ABO/Rh (test code = ABO/Rh) O NEG [facility] [id number] 14:18:00 Test Item Value Reference Range Interpretation Comments Antibody Scrn (test Negative (09/01/19 9:18 code = Antibody Scrn) AM) [facility] HospitalFdibkauKHESGYLTEC3402-07-27 14:25:00 Test Item Value Reference Range Interpretation Comments Coronavirus (COVID-19) Not Detected (08/30/19 DARREL (test code = 9:25 AM) Coronavirus (COVID-19) DARREL) [facility]RuihhryVACNHIQCYS7501-90-78 14:25:00 Test Item Value Reference Range Interpretation Comments Coronavirus (COVID-19) Not Detected (08/30/19 DARREL (test code = 9:25 AM) Coronavirus (COVID-19) DARREL) [facility] HospitalPcgspmuGEHYVXURNG2057-48-17 14:25:00 Test Item Value Reference Range Interpretation Comments Coronavirus (COVID-19) Not Detected (08/30/19 DARREL (test code = 9:25 AM) Coronavirus (COVID-19) DARREL) [facility] HospitalWsxowvkPSJJPCEJGC7488-77-00 14:25:00 Test Item Value Reference Range Interpretation Comments Coronavirus (COVID-19) Not Detected (08/30/19 DARREL (test code = 9:25 AM) Coronavirus (COVID-19) DARRLE) [facility]2020-04-25 13:17:00 Test Item Value Reference Range Interpretation Comments Total CK (test code = Total CK) 237 12-191 [facility] HospitalP[facility] [id number] 13:17:00 Test Item Value Reference Range Interpretation Comments Troponin-I (test code no gt See_Comment [Auto mated message] The = Troponin-I) system which g enerated this result transmit ethel reference range : <=0.40. The reference r [place] was not used to interpr et this result as za l/abnormal. [facility] [email or web address] [id number] 13:17:00 Test Item Value Reference Range Interpretation Comments Glucose Lvl (test code = Glucose Lvl) 115 70-99 [facility] [employer] [id number] 13:17:00 Test Item Value Reference Range Interpretation Comments BUN (test code = BUN) 11 7-22 [facility] Auto [id number] 13:17:00 Test Item Value Reference Range Interpretation Comments Creatinine Lvl (test code = Creatinine 1.19 0.50-1.40 Lvl) [facility]51 Auto [id number] 13:17:00 Test Item Value Reference Range Interpretation Comments Sodium Lvl (test code = Sodium Lvl) 143 135-145 [facility] [email or web address] [id number] 13:17:00 Test Item Value Reference Range Interpretation Comments Potassium Lvl (test code = Potassium 4.5 3.5-5.1 Lvl) [facility]51 Auto [id number] 13:17:00 Test Item Value Reference Range Interpretation Comments Chloride Lvl (test code = Chloride Lvl) 108 95-109 [facility] [employer]2020-04-25 13:17:00 Test Item Value Reference Range Interpretation Comments CO2 (test code = CO2) 24 24-32 [facility]51 Auto [id number] 13:17:00 Test Item Value Reference Range Interpretation Comments Calcium Lvl (test code = Calcium Lvl) 9.6 8.5-10.5 [facility]51 Auto [id number] 13:17:00 Test Item Value Reference Range Interpretation Comments Total Protein (test code = Total 8.2 6.4-8.4 Protein) [facility]51 Auto [id number] 13:17:00 Test Item Value Reference Range Interpretation Comments Albumin Lvl (test code = Albumin Lvl) 3.9 3.5-5.0 [employer]2020-04-25 13:17:00 Test Item Value Reference Range Interpretation Comments ALT (test code = ALT) 18 See_Comment [Auto mated message] The system which ge nerated this result transmit ethel reference range : <=65. The reference range was not used to interpr et this result as za l/abnormal. [employer]2020-04-25 13:17:00 Test Item Value Reference Range Interpretation Comments AST (test code = AST) 19 See_Comment [Auto mated message] The system which ge nerated this result transmit ethel reference range : <=37. The reference range was not used to interpr et this result as za l/abnormal. [employer]2020-04-25 13:17:00 Test Item Value Reference Range Interpretation Comments Alk Phos (test code = Alk Phos) 82 39-136 [employer]2020-04-25 13:17:00 Test Item Value Reference Range Interpretation Comments Bili Total (test code = Bili Total) 0.5 0.2-1.3 [facility] [employer]2020-04-25 13:17:00 Test Item Value Reference Range Interpretation Comments AGAP (test code = AGAP) 15.5 10.0-20.0 [employer]2020-04-25 13:17:00 Test Item Value Reference Range Interpretation Comments B/C Ratio (test code = B/C Ratio) 9 1 6-25 [employer]2020-04-25 13:17:00 Test Item Value Reference Range Interpretation Comments Globulin (test code = Globulin) 4.3 2.7-4.2 [facility] [employer]-04-25 13:17:00 Test Item Value Reference Range Interpretation Comments A/G Ratio (test code = A/G Ratio) 0.9 1 0.7-1.6 [facility] [employer]2020-04-25 13:17:00 Test Item Value Reference Range Interpretation Comments eGFR (test code = eGFR) 47 [facility] [employer]2020-04-25 13:17:00 Test Item Value Reference Range Interpretation Comments Lipase Lvl (test code = Lipase Lvl) 150 73-393 [facility] [employer]2020-04-25 13:17:00 Test Item Value Reference Range Interpretation Comments Lactic Acid Lvl (test code = Lactic 1.7 0.5-2.2 Acid Lvl) [place] 091700-04-25 13:17:00 Test Item Value Reference Range Interpretation Comments WBC (test code = WBC) 5.1 3.7-10.4 [place] [address]-04-25 13:17:00 Test Item Value Reference Range Interpretation Comments RBC (test code = RBC) 4.18 4.20-5.40 [place] [address]-04-25 13:17:00 Test Item Value Reference Range Interpretation Comments Hgb (test code = Hgb) 10.7 12.0-16.[address]04-25 13:17:00 Test Item Value Reference Range Interpretation Comments Hct (test code = Hct) 33.2 36.0-48.[address]04-25 13:17:00 Test Item Value Reference Range Interpretation Comments MCV (test code = MCV) 79.5 80.0-98.0 [place] [address]-04-25 13:17:00 Test Item Value Reference Range Interpretation Comments MCH (test code = MCH) 25.7 pg 27.0-31.0 [place] [address]-04-25 13:17:00 Test Item Value Reference Range Interpretation Comments MCHC (test code = MCHC) 32.3 32.0-36.0 [place] [address]-04-25 13:17:00 Test Item Value Reference Range Interpretation Comments RDW (test code = RDW) 15.7 11.5-14.5 [place] [address]-04-25 13:17:00 Test Item Value Reference Range Interpretation Comments Platelet (test code = Platelet) 176 133-450 [place] 091700-04-25 13:17:00 Test Item Value Reference Range Interpretation Comments MPV (test code = MPV) 9.5 7.4-10.4 [place] [address]-04-25 13:17:00 Test Item Value Reference Range Interpretation Comments Segs (test code = Segs) 60.7 45.0-75.0 [place] [address]-04-25 13:17:00 Test Item Value Reference Range Interpretation Comments Lymphocytes (test code = Lymphocytes) 29.4 20.0-40.0 [facility]BjiitgxHBZASJAOOX4090-52-08 13:17:00 Test Item Value Reference Range Interpretation Comments Monocytes (test code = Monocytes) 8.3 2.0-12.0 [facility]AeekwkfPIDGYPRTYR1431-93-19 13:17:00 Test Item Value Reference Range Interpretation Comments Eosinophils (test code = 1.1 See_Comment [A utomated message] The Eosinophils) system which ge nerated this result tra nsmitted reference range : <=4.0. The reference r [place] was not used to int erpret this result as normal/abnormal . [facility] CenterPlhcipjEXDALECFHE1444-14-64 13:17:00 Test Item Value Reference Range Interpretation Comments Basophils (test code = 0.5 See_Comment [Aut omated message] The Basophils) system which ge nerated this result tra nsmitted reference range : <=1.0. The reference r [place] was not used to int erpret this result as normal/abnormal . [facility] CenterXuqsrwgYYOLMRBPBF4078-64-78 13:17:00 Test Item Value Reference Range Interpretation Comments Neutrophils # (test code = Neutrophils 3.1 1.5-8.1 #) [facility] CenterXszwsdxIJIMYIMEOF6455-29-56 13:17:00 Test Item Value Reference Range Interpretation Comments Lymphocytes # (test code = Lymphocytes 1.5 1.0-5.5 #) [facility] CenterUgyixszYDPBASHVKJ6940-95-20 13:17:00 Test Item Value Reference Range Interpretation Comments Monocytes # (test code 0.4 See_Comment [Aut omated message] The = Monocytes #) system which generated this result tra nsmitted reference range : <=0.8. The reference r [place] was not used to int erpret this result as normal/abnormal . [facility] CenterTijvvemAKNUGMRNCM3114-72-95 13:17:00 Test Item Value Reference Range Interpretation Comments Eosinophils # (test code 0.1 See_Comment [A utomated message] The = Eosinophils #) system whic h generated this result tra nsmitted reference range : <=0.5. The reference r [place] was not used to int erpret this result as normal/abnormal . [facility] HospitalCARD[facility] AADHQNY0458-09-63 13:17:00 Test Item Value Reference Range Interpretation Comments Total CK (test code = Total CK) 237 12-191 [facility] Hospital[facility] [id number] 13:17:00 Test Item Value Reference Range Interpretation Comments Troponin-I (test code no gt See_Comment [Auto mated message] The = Troponin-I) system which g enerated this result transmit ethel reference range : <=0.40. The reference r [place] was not used to interpr et this result as za l/abnormal. [facility]51 Auto [id number] 13:17:00 Test Item Value Reference Range Interpretation Comments Glucose Lvl (test code = Glucose Lvl) 115 70-99 [facility]51 Auto [id number] 13:17:00 Test Item Value Reference Range Interpretation Comments BUN (test code = BUN) 11 7-22 [facility]51 Auto [id number] 13:17:00 Test Item Value Reference Range Interpretation Comments Creatinine Lvl (test code = Creatinine 1.19 0.50-1.40 Lvl) [facility]51 Auto [id number] 13:17:00 Test Item Value Reference Range Interpretation Comments Sodium Lvl (test code = Sodium Lvl) 143 135-145 [facility]51 [employer] [id number] 13:17:00 Test Item Value Reference Range Interpretation Comments Potassium Lvl (test code = Potassium 4.5 3.5-5.1 Lvl) [facility]51 [employer] [id number] 13:17:00 Test Item Value Reference Range Interpretation Comments Chloride Lvl (test code = Chloride Lvl) 108 95-109 [facility]51 Auto [id number] 13:17:00 Test Item Value Reference Range Interpretation Comments CO2 (test code = CO2) 24 24-32 [facility]51 Auto [id number] 13:17:00 Test Item Value Reference Range Interpretation Comments Calcium Lvl (test code = Calcium Lvl) 9.6 8.5-10.5 [facility]51 Auto [id number] 13:17:00 Test Item Value Reference Range Interpretation Comments Total Protein (test code = Total 8.2 6.4-8.4 Protein) [facility]51 Auto [id number] 13:17:00 Test Item Value Reference Range Interpretation Comments Albumin Lvl (test code = Albumin Lvl) 3.9 3.5-5.0 [facility]51 Auto [id number] 13:17:00 Test Item Value Reference Range Interpretation Comments ALT (test code = ALT) 18 See_Comment [Auto mated message] The system which ge nerated this result transmit ethel reference range : <=65. The reference range was not used to interpr et this result as za l/abnormal. [facility] [email or web address] [id number] 13:17:00 Test Item Value Reference Range Interpretation Comments AST (test code = AST) 19 See_Comment [Auto mated message] The system which ge nerated this result transmit ethel reference range : <=37. The reference range was not used to interpr et this result as za l/abnormal. [employer]2020-04-25 13:17:00 Test Item Value Reference Range Interpretation Comments Alk Phos (test code = Alk Phos) 82 39-136 [facility] [employer] [id number] 13:17:00 Test Item Value Reference Range Interpretation Comments Bili Total (test code = Bili Total) 0.5 0.2-1.3 [facility] [email or web address] [id number] 13:17:00 Test Item Value Reference Range Interpretation Comments AGAP (test code = AGAP) 15.5 10.0-20.0 [facility] [employer]2020-04-25 13:17:00 Test Item Value Reference Range Interpretation Comments B/C Ratio (test code = B/C Ratio) 9 1 6-25 [facility] [employer] [id number] 13:17:00 Test Item Value Reference Range Interpretation Comments Globulin (test code = Globulin) 4.3 2.7-4.2 [facility] [email or web address] [id number] 13:17:00 Test Item Value Reference Range Interpretation Comments A/G Ratio (test code = A/G Ratio) 0.9 1 0.7-1.6 [facility] [employer]2020-04-25 13:17:00 Test Item Value Reference Range Interpretation Comments eGFR (test code = eGFR) 47 [facility] [email or web address] [id number] 13:17:00 Test Item Value Reference Range Interpretation Comments Lipase Lvl (test code = Lipase Lvl) 150 73-393 [facility] [email or web address] [id number] 13:17:00 Test Item Value Reference Range Interpretation Comments Lactic Acid Lvl (test code = Lactic 1.7 0.5-2.2 Acid Lvl) [facility] CenterNnkdlimDMFHUVIMYQ8723-94-74 13:17:00 Test Item Value Reference Range Interpretation Comments WBC (test code = WBC) 5.1 3.7-10.4 [facility] CenterHeuangvTJFPGFQKSG5855-40-87 13:17:00 Test Item Value Reference Range Interpretation Comments RBC (test code = RBC) 4.18 4.20-5.40 [facility] CenterMugydpsWOLCHGEQYB7408-89-42 13:17:00 Test Item Value Reference Range Interpretation Comments Hgb (test code = Hgb) 10.7 12.0-16.0 [facility] CenterUngurtnJZJFEDYYPF0848-64-30 13:17:00 Test Item Value Reference Range Interpretation Comments Hct (test code = Hct) 33.2 36.0-48.0 [facility] CenterSueptvqSKBBSPZDCK8776-18-39 13:17:00 Test Item Value Reference Range Interpretation Comments MCV (test code = MCV) 79.5 80.0-98.0 [facility] CenterXmovytmPHVGCIYFQR1527-28-03 13:17:00 Test Item Value Reference Range Interpretation Comments MCH (test code = MCH) 25.7 pg 27.0-31.0 [facility] CenterDkruzyfWXPSMJYCYV7274-72-87 13:17:00 Test Item Value Reference Range Interpretation Comments MCHC (test code = MCHC) 32.3 32.0-36.0 [facility] CenterIxpktjrCLYODKJHCS7575-09-17 13:17:00 Test Item Value Reference Range Interpretation Comments RDW (test code = RDW) 15.7 11.5-14.5 [facility] CenterTlwxdukODULUWKQLC8866-75-53 13:17:00 Test Item Value Reference Range Interpretation Comments Platelet (test code = Platelet) 176 133-450 [facility] CenterCqyooakLLSVGZQVRU3118-15-05 13:17:00 Test Item Value Reference Range Interpretation Comments MPV (test code = MPV) 9.5 7.4-10.4 [place] 091700-04-25 13:17:00 Test Item Value Reference Range Interpretation Comments Segs (test code = Segs) 60.7 45.0-75.0 [place] 091700-04-25 13:17:00 Test Item Value Reference Range Interpretation Comments Lymphocytes (test code = Lymphocytes) 29.4 20.0-40.0 [facility] HospitalKzeazsgHLWTLBUXVG1043-55-60 13:17:00 Test Item Value Reference Range Interpretation Comments Monocytes (test code = Monocytes) 8.3 2.0-12.0 [facility] CenterPttavjgQEKJHDWGGK6547-59-41 13:17:00 Test Item Value Reference Range Interpretation Comments Eosinophils (test code = 1.1 See_Comment [A utomated message] The Eosinophils) system which ge nerated this result tra nsmitted reference range : <=4.0. The reference r [place] was not used to int erpret this result as normal/abnormal . [facility] HospitalVzioyugKUHGAHTRVY9083-69-34 13:17:00 Test Item Value Reference Range Interpretation Comments Basophils (test code = 0.5 See_Comment [Aut omated message] The Basophils) system which ge nerated this result tra nsmitted reference range : <=1.0. The reference r [place] was not used to int erpret this result as normal/abnormal . [facility] HospitalNypsxecBXVGVZPTCP6729-83-25 13:17:00 Test Item Value Reference Range Interpretation Comments Neutrophils # (test code = Neutrophils 3.1 1.5-8.1 #) [facility] HospitalYfgpsjvYXAFBKQSBT3421-71-06 13:17:00 Test Item Value Reference Range Interpretation Comments Lymphocytes # (test code = Lymphocytes 1.5 1.0-5.5 #) [facility] HospitalEjnhsgaGYRJNTEEQH9539-74-54 13:17:00 Test Item Value Reference Range Interpretation Comments Monocytes # (test code 0.4 See_Comment [Aut omated message] The = Monocytes #) system which generated this result tra nsmitted reference range : <=0.8. The reference r ge[place] was not used to int erpret this result as normal/abnormal . [facility] HospitalQmufamhQHXRPLJTEO0204-60-67 13:17:00 Test Item Value Reference Range Interpretation Comments Eosinophils # (test code 0.1 See_Comment [A utomated message] The = Eosinophils #) system whic h generated this result tra nsmitted reference range : <=0.5. The reference r ge[place] was not used to int erpret this result as normal/abnormal . [facility] HospitalAuthenticlickOEZFATM7189-48-45 13:17:00 Test Item Value Reference Range Interpretation Comments Total CK (test code = Total CK) 237 12-191 [facility] HospitalCARDIAC [id number] 13:17:00 Test Item Value Reference Range Interpretation Comments Troponin-I (test code no gt See_Comment [Auto mated message] The = Troponin-I) system which g enerated this result transmit ethel reference range : <=0.40. The reference r ge[place] was not used to interpr et this result as za l/abnormal. [facility] [email or web address] [id number] 13:17:00 Test Item Value Reference Range Interpretation Comments Glucose Lvl (test code = Glucose Lvl) 115 70-99 [facility]51 Auto [id number] 13:17:00 Test Item Value Reference Range Interpretation Comments BUN (test code = BUN) 11 7-22 [facility] [email or web address] [id number] 13:17:00 Test Item Value Reference Range Interpretation Comments Creatinine Lvl (test code = Creatinine 1.19 0.50-1.40 Lvl) [facility]51 Auto [id number] 13:17:00 Test Item Value Reference Range Interpretation Comments Sodium Lvl (test code = Sodium Lvl) 143 135-145 [facility]51 Auto [id number] 13:17:00 Test Item Value Reference Range Interpretation Comments Potassium Lvl (test code = Potassium 4.5 3.5-5.1 Lvl) [facility] [email or web address] [id number] 13:17:00 Test Item Value Reference Range Interpretation Comments Chloride Lvl (test code = Chloride Lvl) 108 95-109 [facility] [email or web address] [id number] 13:17:00 Test Item Value Reference Range Interpretation Comments CO2 (test code = CO2) 24 24-32 [facility]51 Auto [id number] 13:17:00 Test Item Value Reference Range Interpretation Comments Calcium Lvl (test code = Calcium Lvl) 9.6 8.5-10.5 [facility]51 Auto [id number] 13:17:00 Test Item Value Reference Range Interpretation Comments Total Protein (test code = Total 8.2 6.4-8.4 Protein) [facility]51 Auto [id number] 13:17:00 Test Item Value Reference Range Interpretation Comments Albumin Lvl (test code = Albumin Lvl) 3.9 3.5-5.0 [facility]51 Auto [id number] 13:17:00 Test Item Value Reference Range Interpretation Comments ALT (test code = ALT) 18 See_Comment [Auto mated message] The system which ge nerated this result transmit ethel reference range : <=65. The reference range was not used to interpr et this result as za l/abnormal. [facility] [email or web address] [id number] 13:17:00 Test Item Value Reference Range Interpretation Comments AST (test code = AST) 19 See_Comment [Auto mated message] The system which ge nerated this result transmit ethel reference range : <=37. The reference range was not used to interpr et this result as za l/abnormal. [facility] [email or web address] [id number] 13:17:00 Test Item Value Reference Range Interpretation Comments Alk Phos (test code = Alk Phos) 82 39-136 [facility]51 Auto [id number] 13:17:00 Test Item Value Reference Range Interpretation Comments Bili Total (test code = Bili Total) 0.5 0.2-1.3 [facility]51 Auto [id number] 13:17:00 Test Item Value Reference Range Interpretation Comments AGAP (test code = AGAP) 15.5 10.0-20.0 [facility]51 Auto [id number] 13:17:00 Test Item Value Reference Range Interpretation Comments B/C Ratio (test code = B/C Ratio) 9 1 6-25 [facility]51 Auto [id number] 13:17:00 Test Item Value Reference Range Interpretation Comments Globulin (test code = Globulin) 4.3 2.7-4.2 [facility]51 Auto [id number] 13:17:00 Test Item Value Reference Range Interpretation Comments A/G Ratio (test code = A/G Ratio) 0.9 1 0.7-1.6 [facility]51 Auto [id number] 13:17:00 Test Item Value Reference Range Interpretation Comments eGFR (test code = eGFR) 47 [facility]51 Auto [id number] 13:17:00 Test Item Value Reference Range Interpretation Comments Lipase Lvl (test code = Lipase Lvl) 150 73-393 [facility]51 Auto [id number] 13:17:00 Test Item Value Reference Range Interpretation Comments Lactic Acid Lvl (test code = Lactic 1.7 0.5-2.2 Acid Lvl) [facility] JsyeiyjONDNWLHMRV5758-38-96 13:17:00 Test Item Value Reference Range Interpretation Comments WBC (test code = WBC) 5.1 3.7-10.4 [facility] CenterHlopcynLBUYIXNTLG2720-28-16 13:17:00 Test Item Value Reference Range Interpretation Comments RBC (test code = RBC) 4.18 4.20-5.40 [facility] CenterBoxskjvVMVDBXGKGF3910-50-90 13:17:00 Test Item Value Reference Range Interpretation Comments Hgb (test code = Hgb) 10.7 12.0-16.0 [place] [address]-04-25 13:17:00 Test Item Value Reference Range Interpretation Comments Hct (test code = Hct) 33.2 36.0-48.0 [place] [address]-04-25 13:17:00 Test Item Value Reference Range Interpretation Comments MCV (test code = MCV) 79.5 80.0-98.0 [place] [address]-04-25 13:17:00 Test Item Value Reference Range Interpretation Comments MCH (test code = MCH) 25.7 pg 27.0-31.0 [place] [address]-04-25 13:17:00 Test Item Value Reference Range Interpretation Comments MCHC (test code = MCHC) 32.3 32.0-36.0 [facility] CenterUkxaqkmAQUPNKNNDR0995-42-32 13:17:00 Test Item Value Reference Range Interpretation Comments RDW (test code = RDW) 15.7 11.5-14.5 [facility] CenterEfapsphXORNZEPXEA6761-85-37 13:17:00 Test Item Value Reference Range Interpretation Comments Platelet (test code = Platelet) 176 133-450 [facility] CenterEdvlyhmEQROYTQPYF4021-12-24 13:17:00 Test Item Value Reference Range Interpretation Comments MPV (test code = MPV) 9.5 7.4-10.4 [place] [address]-04-25 13:17:00 Test Item Value Reference Range Interpretation Comments Segs (test code = Segs) 60.7 45.0-75.0 [place] [address]-04-25 13:17:00 Test Item Value Reference Range Interpretation Comments Lymphocytes (test code = Lymphocytes) 29.4 20.0-40.0 [place] [address]-04-25 13:17:00 Test Item Value Reference Range Interpretation Comments Monocytes (test code = Monocytes) 8.3 2.0-12.0 [facility] HospitalEkyxscbXNIJPDJSPV0536-33-68 13:17:00 Test Item Value Reference Range Interpretation Comments Eosinophils (test code = 1.1 See_Comment [A utomated message] The Eosinophils) system which ge nerated this result tra nsmitted reference range : <=4.0. The reference r [place] was not used to int erpret this result as normal/abnormal . [facility] HospitalSfpsymuGTKRRTQLIC7583-49-49 13:17:00 Test Item Value Reference Range Interpretation Comments Basophils (test code = 0.5 See_Comment [Aut omated message] The Basophils) system which ge nerated this result tra nsmitted reference range : <=1.0. The reference r [place] was not used to int erpret this result as normal/abnormal . [facility] CenterBcsfkjqVKNBYHBCNP3287-34-65 13:17:00 Test Item Value Reference Range Interpretation Comments Neutrophils # (test code = Neutrophils 3.1 1.5-8.1 #) [facility] HospitalEtkifwlRNCTPHJPUA7484-81-81 13:17:00 Test Item Value Reference Range Interpretation Comments Lymphocytes # (test code = Lymphocytes 1.5 1.0-5.5 #) [facility] HospitalIhybdouXXGUNESSLQ7029-52-45 13:17:00 Test Item Value Reference Range Interpretation Comments Monocytes # (test code 0.4 See_Comment [Aut omated message] The = Monocytes #) system which generated this result tra nsmitted reference range : <=0.8. The reference r [place] was not used to int erpret this result as normal/abnormal . [facility] HospitalEdgwmsjVSYAWLHJUQ9024-26-73 13:17:00 Test Item Value Reference Range Interpretation Comments Eosinophils # (test code 0.1 See_Comment [A utomated message] The = Eosinophils #) system whic h generated this result tra nsmitted reference range : <=0.5. The reference r [place] was not used to int erpret this result as normal/abnormal . [facility] HospitalKeraplast Technologies [id number] 13:17:00 Test Item Value Reference Range Interpretation Comments Total CK (test code = Total CK) 237 12-191 [facility] HospitalBokecc [id number] 13:17:00 Test Item Value Reference Range Interpretation Comments Troponin-I (test code no gt See_Comment [Auto mated message] The = Troponin-I) system which g enerated this result transmit ethel reference range : <=0.40. The reference r [place] was not used to interpr et this result as za l/abnormal. [facility]2020-04-25 13:17:00 Test Item Value Reference Range Interpretation Comments Glucose Lvl (test code = Glucose Lvl) 115 70-99 [facility] HospitalKjaya MedicalJESSICA VILLE [id number] 13:17:00 Test Item Value Reference Range Interpretation Comments BUN (test code = BUN) 11 7-22 [place] [address]-04-25 13:17:00 Test Item Value Reference Range Interpretation Comments Creatinine Lvl (test code = Creatinine 1.19 0.50-1.40 Lvl) [place] [address]-04-25 13:17:00 Test Item Value Reference Range Interpretation Comments Sodium Lvl (test code = Sodium Lvl) 143 135-145 [facility]51 Auto [id number] 13:17:00 Test Item Value Reference Range Interpretation Comments Potassium Lvl (test code = Potassium 4.5 3.5-5.1 Lvl) [facility] HospitalKjaya MedicalSUZANNE VILLE [id number] 13:17:00 Test Item Value Reference Range Interpretation Comments Chloride Lvl (test code = Chloride Lvl) 108 95-109 [facility] HospitalDermApproved [id number] 13:17:00 Test Item Value Reference Range Interpretation Comments CO2 (test code = CO2) 24 24-32 [place] [address]-04-25 13:17:00 Test Item Value Reference Range Interpretation Comments Calcium Lvl (test code = Calcium Lvl) 9.6 8.5-10.5 [facility]51 Auto [id number] 13:17:00 Test Item Value Reference Range Interpretation Comments Total Protein (test code = Total 8.2 6.4-8.4 Protein) [facility] HospitalDermApproved [id number] 13:17:00 Test Item Value Reference Range Interpretation Comments Albumin Lvl (test code = Albumin Lvl) 3.9 3.5-5.0 [facility]51 Auto [id number] 13:17:00 Test Item Value Reference Range Interpretation Comments ALT (test code = ALT) 18 See_Comment [Auto mated message] The system which ge nerated this result transmit ethel reference range : <=65. The reference range was not used to interpr et this result as za l/abnormal. [facility]51 Auto [id number] 13:17:00 Test Item Value Reference Range Interpretation Comments AST (test code = AST) 19 See_Comment [Auto mated message] The system which ge nerated this result transmit ethel reference range : <=37. The reference range was not used to interpr et this result as za l/abnormal. [facility]51 Auto [id number] 13:17:00 Test Item Value Reference Range Interpretation Comments Alk Phos (test code = Alk Phos) 82 39-136 [facility]51 Auto [id number] 13:17:00 Test Item Value Reference Range Interpretation Comments Bili Total (test code = Bili Total) 0.5 0.2-1.3 [place] [id number] 13:17:00 Test Item Value Reference Range Interpretation Comments AGAP (test code = AGAP) 15.5 10.0-20.0 [facility] HospitalDermApproved [id number] 13:17:00 Test Item Value Reference Range Interpretation Comments B/C Ratio (test code = B/C Ratio) 9 1 6-25 [facility] HospitalDermApproved [id number] 13:17:00 Test Item Value Reference Range Interpretation Comments Globulin (test code = Globulin) 4.3 2.7-4.2 [facility]2020-04-25 13:17:00 Test Item Value Reference Range Interpretation Comments A/G Ratio (test code = A/G Ratio) 0.9 1 0.7-1.6 [facility] HospitalDermApproved [id number] 13:17:00 Test Item Value Reference Range Interpretation Comments eGFR (test code = eGFR) 47 [facility] HospitalDermApproved [id number] 13:17:00 Test Item Value Reference Range Interpretation Comments Lipase Lvl (test code = Lipase Lvl) 150 73-393 [facility] HospitalDermApproved [id number] 13:17:00 Test Item Value Reference Range Interpretation Comments Lactic Acid Lvl (test code = Lactic 1.7 0.5-2.2 Acid Lvl) [facility] CenterBlknnjjSRWNYUPKOR0169-16-74 13:17:00 Test Item Value Reference Range Interpretation Comments WBC (test code = WBC) 5.1 3.7-10.4 [facility] CenterXpguizxMCAAJRSDAC5605-05-39 13:17:00 Test Item Value Reference Range Interpretation Comments RBC (test code = RBC) 4.18 4.20-5.40 [facility] CenterNtodgjyDGTOVLOURF2356-16-42 13:17:00 Test Item Value Reference Range Interpretation Comments Hgb (test code = Hgb) 10.7 12.0-16.0 [facility] CenterPrdfhayFCXTXUYTUZ1001-57-74 13:17:00 Test Item Value Reference Range Interpretation Comments Hct (test code = Hct) 33.2 36.0-48.0 [facility] CenterGtqjnpbZPYHHNDFEO2923-86-77 13:17:00 Test Item Value Reference Range Interpretation Comments MCV (test code = MCV) 79.5 80.0-98.0 [facility] CenterXvtolqkGUFHTGIVVF5659-13-25 13:17:00 Test Item Value Reference Range Interpretation Comments MCH (test code = MCH) 25.7 pg 27.0-31.0 [facility] CenterNclgmzpAUYCJGUJKB4480-04-29 13:17:00 Test Item Value Reference Range Interpretation Comments MCHC (test code = MCHC) 32.3 32.0-36.0 [facility] CenterYfhtjgzYYUKPGDVAK4700-63-03 13:17:00 Test Item Value Reference Range Interpretation Comments RDW (test code = RDW) 15.7 11.5-14.5 [facility] CenterHnmxjzjICRXXLHGEQ1456-21-77 13:17:00 Test Item Value Reference Range Interpretation Comments Platelet (test code = Platelet) 176 133-450 [facility] CenterCbpncqsDSFEGWLSMR7164-64-09 13:17:00 Test Item Value Reference Range Interpretation Comments MPV (test code = MPV) 9.5 7.4-10.4 [facility] CenterAtufxljFIBEIAXJGU5371-11-51 13:17:00 Test Item Value Reference Range Interpretation Comments Segs (test code = Segs) 60.7 45.0-75.0 [facility] CenterSlkehdiRNELJKILRS1793-97-49 13:17:00 Test Item Value Reference Range Interpretation Comments Lymphocytes (test code = Lymphocytes) 29.4 20.0-40.0 [facility] CenterAqbievbSEBNESYBAK2312-40-56 13:17:00 Test Item Value Reference Range Interpretation Comments Monocytes (test code = Monocytes) 8.3 2.0-12.0 [place] [address]-04-25 13:17:00 Test Item Value Reference Range Interpretation Comments Eosinophils (test code = 1.1 See_Comment [A utomated message] The Eosinophils) system which ge nerated this result tra nsmitted reference range : <=4.0. The reference r [place] was not used to int erpret this result as normal/abnormal . [facility] CenterWrrlsnuVCNUXFIXFD1184-53-97 13:17:00 Test Item Value Reference Range Interpretation Comments Basophils (test code = 0.5 See_Comment [Aut omated message] The Basophils) system which ge nerated this result tra nsmitted reference range : <=1.0. The reference r [place] was not used to int erpret this result as normal/abnormal . [facility] CenterBbhszdvDHSARHGYHQ6080-10-94 13:17:00 Test Item Value Reference Range Interpretation Comments Neutrophils # (test code = Neutrophils 3.1 1.5-8.1 #) [facility] CenterNuamacaLEAOMJTXCZ5841-08-34 13:17:00 Test Item Value Reference Range Interpretation Comments Lymphocytes # (test code = Lymphocytes 1.5 1.0-5.5 #) [facility] CenterQogronrPDLYYDEQMY1923-99-63 13:17:00 Test Item Value Reference Range Interpretation Comments Monocytes # (test code 0.4 See_Comment [Aut omated message] The = Monocytes #) system which generated this result tra nsmitted reference range : <=0.8. The reference r [place] was not used to int erpret this result as normal/abnormal . [facility] CenterUalpkitMMURLKBJYY5005-78-35 13:17:00 Test Item Value Reference Range Interpretation Comments Eosinophils # (test code 0.1 See_Comment [A utomated message] The = Eosinophils #) system whic h generated this result tra nsmitted reference range : <=0.5. The reference r ge[place] was not used to int erpret this result as normal/abnormal . [facility] AND [id number] 00:33:00 Test Item Value Reference Range Interpretation Comments UA Color (test code = Yellow *NA*(07/12/19 UA Color) 7:33 PM) [facility] AND [id number] 00:33:00 Test Item Value Reference Range Interpretation Comments UA Turbidity (test code Slight *ABN*(4/21/20 = UA Turbidity) 7:33 PM) [facility] [id number] 00:33:00 Test Item Value Reference Range Interpretation Comments UA Spec Grav (test code = UA Spec 1.011 1 Grav) [facility] [id number] 00:33:00 Test Item Value Reference Range Interpretation Comments UA pH (test code = UA pH) 7.0 1 5.0-8.0 [facility] [id number] 00:33:00 Test Item Value Reference Range Interpretation Comments UA Protein (test code = UA Negative mg/dL Protein) [facility] [id number] 00:33:00 Test Item Value Reference Range Interpretation Comments UA Glucose (test code = UA Negative mg/dL Glucose) [facility] [id number] 00:33:00 Test Item Value Reference Range Interpretation Comments UA Ketones (test code = UA Negative mg/dL Ketones) [facility] [id number] 00:33:00 Test Item Value Reference Range Interpretation Comments UA Bili (test code = Negative *NA*(07/12/19 UA Bili) 7:33 PM) [facility] [id number] 00:33:00 Test Item Value Reference Range Interpretation Comments UA Blood (test code = Small *ABN*(07/12/19 UA Blood) 7:33 PM) [facility] [id number] 00:33:00 Test Item Value Reference Range Interpretation Comments UA Nitrite (test code Negative (07/12/19 7:33 = UA Nitrite) PM) [facility] [id number] 00:33:00 Test Item Value Reference Range Interpretation Comments UA Leuk Est (test Negative (07/12/19 7:33 code = UA Leuk Est) PM) [facility] [id number] 00:33:00 Test Item Value Reference Range Interpretation Comments UA Sq Epi (test code = UA Sq Occasional /LPF Epi) [facility] [id number] 00:33:00 Test Item Value Reference Range Interpretation Comments UA WBC (test code = 2 See_Comment [Automa ethel message] The UA WBC) system which ge nerated this result transmit ethel reference range : <=5. The reference range was not used to interpr et this result as za l/abnormal. [facility] [id number] 00:33:00 Test Item Value Reference Range Interpretation Comments UA RBC (test code = 3 See_Comment [Automa ethel message] The UA RBC) system which ge nerated this result transmit ethel reference range : <=2. The reference range was not used to interpr et this result as za l/abnormal. [facility] [id number] 00:33:00 Test Item Value Reference Range Interpretation Comments UA Bacteria (test code = UA Occasional /HPF Bacteria) [facility] [id number] 00:33:00 Test Item Value Reference Range Interpretation Comments UA Urobilinogen (test code = UA <=1.0 mg/dL 0.1-1.0 Urobilinogen) [facility] [id number] 00:33:00 Test Item Value Reference Range Interpretation Comments UA Color (test code = Yellow *NA*(07/12/19 UA Color) 7:33 PM) [facility] [id number] 00:33:00 Test Item Value Reference Range Interpretation Comments UA Turbidity (test code Slight *ABN*(07/12/19 = UA Turbidity) 7:33 PM) [facility] AND [id number] 00:33:00 Test Item Value Reference Range Interpretation Comments UA Spec Grav (test code = UA Spec 1.011 1 Grav) [facility] AND [id number] 00:33:00 Test Item Value Reference Range Interpretation Comments UA pH (test code = UA pH) 7.0 1 5.0-8.0 [facility] [id number] 00:33:00 Test Item Value Reference Range Interpretation Comments UA Protein (test code = UA Negative mg/dL Protein) [facility] [id number] 00:33:00 Test Item Value Reference Range Interpretation Comments UA Glucose (test code = UA Negative mg/dL Glucose) [facility] [id number] 00:33:00 Test Item Value Reference Range Interpretation Comments UA Ketones (test code = UA Negative mg/dL Ketones) [facility] [id number] 00:33:00 Test Item Value Reference Range Interpretation Comments UA Bili (test code = Negative *NA*(07/12/19 UA Bili) 7:33 PM) [facility] [id number] 00:33:00 Test Item Value Reference Range Interpretation Comments UA Blood (test code = Small *ABN*(07/12/19 UA Blood) 7:33 PM) [facility] [id number] 00:33:00 Test Item Value Reference Range Interpretation Comments UA Nitrite (test code Negative (07/12/19 7:33 = UA Nitrite) PM) [facility] [id number] 00:33:00 Test Item Value Reference Range Interpretation Comments UA Leuk Est (test Negative (07/12/19 7:33 code = UA Leuk Est) PM) [facility] [id number] 00:33:00 Test Item Value Reference Range Interpretation Comments UA Sq Epi (test code = UA Sq Occasional /LPF Epi) [facility] [id number] 00:33:00 Test Item Value Reference Range Interpretation Comments UA WBC (test code = 2 See_Comment [Automa ethel message] The UA WBC) system which ge nerated this result transmit ethel reference range : <=5. The reference range was not used to interpr et this result as za l/abnormal. [facility] [id number] [facility]:00 Test Item Value Reference Range Interpretation Comments UA RBC (test code = 3 See_Comment [Automa ethel message] The UA RBC) system which ge nerated this result transmit ethel reference range : <=2. The reference range was not used to interpr et this result as za l/abnormal. [facility] [id number] 00:33:00 Test Item Value Reference Range Interpretation Comments UA Bacteria (test code = UA Occasional /HPF Bacteria) [facility] [id number] 00:33:00 Test Item Value Reference Range Interpretation Comments UA Urobilinogen (test code = UA <=1.0 mg/dL 0.1-1.0 Urobilinogen) [facility] [id number] 00:33:00 Test Item Value Reference Range Interpretation Comments UA Color (test code = Yellow *NA*(07/12/19 UA Color) 7:33 PM) [facility] [id number] 00:33:00 Test Item Value Reference Range Interpretation Comments UA Turbidity (test code Slight *ABN*(07/12/19 = UA Turbidity) 7:33 PM) [facility] [id number] 00:33:00 Test Item Value Reference Range Interpretation Comments UA Spec Grav (test code = UA Spec 1.011 1 Grav) [facility] [id number] 00:33:00 Test Item Value Reference Range Interpretation Comments UA pH (test code = UA pH) 7.0 1 5.0-8.0 [facility] [id number] 00:33:00 Test Item Value Reference Range Interpretation Comments UA Protein (test code = UA Negative mg/dL Protein) [facility] [id number] 00:33:00 Test Item Value Reference Range Interpretation Comments UA Glucose (test code = UA Negative mg/dL Glucose) [facility] AND [id number] 00:33:00 Test Item Value Reference Range Interpretation Comments UA Ketones (test code = UA Negative mg/dL Ketones) [facility] AND [id number] 00:33:00 Test Item Value Reference Range Interpretation Comments UA Bili (test code = Negative *NA*(07/12/19 UA Bili) 7:33 PM) [facility] [id number] 00:33:00 Test Item Value Reference Range Interpretation Comments UA Blood (test code = Small *ABN*(07/12/19 UA Blood) 7:33 PM) [facility] AND [id number] 00:33:00 Test Item Value Reference Range Interpretation Comments UA Nitrite (test code Negative (07/12/19 7:33 = UA Nitrite) PM) [facility] [id number] 00:33:00 Test Item Value Reference Range Interpretation Comments UA Leuk Est (test Negative (07/12/19 7:33 code = UA Leuk Est) PM) [facility] [id number] 00:33:00 Test Item Value Reference Range Interpretation Comments UA Sq Epi (test code = UA Sq Occasional /LPF Epi) [facility] [id number] 00:33:00 Test Item Value Reference Range Interpretation Comments UA WBC (test code = 2 See_Comment [Automa ethel message] The UA WBC) system which ge nerated this result transmit ethel reference range : <=5. The reference range was not used to interpr et this result as za l/abnormal. [facility] [id number] 00:33:00 Test Item Value Reference Range Interpretation Comments UA RBC (test code = 3 See_Comment [Automa ethel message] The UA RBC) system which ge nerated this result transmit ethel reference range : <=2. The reference range was not used to interpr et this result as za l/abnormal. [facility] [id number] 00:33:00 Test Item Value Reference Range Interpretation Comments UA Bacteria (test code = UA Occasional /HPF Bacteria) [facility] [id number] 00:33:00 Test Item Value Reference Range Interpretation Comments UA Urobilinogen (test code = UA <=1.0 mg/dL 0.1-1.0 Urobilinogen) [facility] [id number] 00:33:00 Test Item Value Reference Range Interpretation Comments UA Color (test code = Yellow *NA*(07/12/19 UA Color) 7:33 PM) [facility] [id number] 00:33:00 Test Item Value Reference Range Interpretation Comments UA Turbidity (test code Slight *ABN*(07/12/19 = UA Turbidity) 7:33 PM) [facility] [id number] 00:33:00 Test Item Value Reference Range Interpretation Comments UA Spec Grav (test code = UA Spec 1.011 1 Grav) [facility] [id number] 00:33:00 Test Item Value Reference Range Interpretation Comments UA pH (test code = UA pH) 7.0 1 5.0-8.0 [facility] [id number] 00:33:00 Test Item Value Reference Range Interpretation Comments UA Protein (test code = UA Negative mg/dL Protein) [facility] [id number] 00:33:00 Test Item Value Reference Range Interpretation Comments UA Glucose (test code = UA Negative mg/dL Glucose) [facility] [id number] 00:33:00 Test Item Value Reference Range Interpretation Comments UA Ketones (test code = UA Negative mg/dL Ketones) [facility] [id number] 00:33:00 Test Item Value Reference Range Interpretation Comments UA Bili (test code = Negative *NA*(07/12/19 UA Bili) 7:33 PM) [facility] [id number] 00:33:00 Test Item Value Reference Range Interpretation Comments UA Blood (test code = Small *ABN*(07/12/19 UA Blood) 7:33 PM) [facility] [id number] 00:33:00 Test Item Value Reference Range Interpretation Comments UA Nitrite (test code Negative (07/12/19 7:33 = UA Nitrite) PM) [facility] [id number] 00:33:00 Test Item Value Reference Range Interpretation Comments UA Leuk Est (test Negative (07/12/19 7:33 code = UA Leuk Est) PM) [facility] [id number] 00:33:00 Test Item Value Reference Range Interpretation Comments UA Sq Epi (test code = UA Sq Occasional /LPF Epi) [facility] [id number] 00:33:00 Test Item Value Reference Range Interpretation Comments UA WBC (test code = 2 See_Comment [Automa ethel message] The UA WBC) system which ge nerated this result transmit ethel reference range : <=5. The reference range was not used to interpr et this result as za l/abnormal. [facility] [id number] 00:33:00 Test Item Value Reference Range Interpretation Comments UA RBC (test code = 3 See_Comment [Automa ethel message] The UA RBC) system which ge nerated this result transmit ethel reference range : <=2. The reference range was not used to interpr et this result as za l/abnormal. [facility] [id number] 00:33:00 Test Item Value Reference Range Interpretation Comments UA Bacteria (test code = UA Occasional /HPF Bacteria) [facility] [id number] 00:33:00 Test Item Value Reference Range Interpretation Comments UA Urobilinogen (test code = UA <=1.0 mg/dL 0.1-1.0 Urobilinogen) [facility] [id number] 23:42:00 Test Item Value Reference Range Interpretation Comments Troponin-I (test code no gt See_Comment [Auto mated message] The = Troponin-I) system which g enerated this result transmit ethel reference range : <=0.40. The reference r [place] was not used to interpr et this result as za l/abnormal. [facility] Auto [id number] 23:42:00 Test Item Value Reference Range Interpretation Comments Glucose Lvl (test code = Glucose Lvl) 85 70-99 [facility] Auto [id number] 23:42:00 Test Item Value Reference Range Interpretation Comments BUN (test code = BUN) 14 7-22 [facility] Auto [id number] 23:42:00 Test Item Value Reference Range Interpretation Comments Creatinine Lvl (test code = Creatinine 1.37 0.50-1.40 Lvl) [facility] Auto [id number] 23:42:00 Test Item Value Reference Range Interpretation Comments Sodium Lvl (test code = Sodium Lvl) 143 135-145 [facility] Auto [id number] 23:42:00 Test Item Value Reference Range Interpretation Comments Potassium Lvl (test code = Potassium 3.5 3.5-5.1 Lvl) [facility] Auto [id number] 23:42:00 Test Item Value Reference Range Interpretation Comments Chloride Lvl (test code = Chloride Lvl) 109 95-109 [facility] Auto [id number] 23:42:00 Test Item Value Reference Range Interpretation Comments CO2 (test code = CO2) 23 24-32 [facility] Auto [id number] 23:42:00 Test Item Value Reference Range Interpretation Comments Calcium Lvl (test code = Calcium Lvl) 9.2 8.5-10.5 [facility] Auto [id number] 23:42:00 Test Item Value Reference Range Interpretation Comments Total Protein (test code = Total 8.4 6.4-8.4 Protein) [facility] Auto [id number] 23:42:00 Test Item Value Reference Range Interpretation Comments Albumin Lvl (test code = Albumin Lvl) 4.0 3.5-5.0 [facility] Auto [id number] 23:42:00 Test Item Value Reference Range Interpretation Comments ALT (test code = ALT) 18 See_Comment [Auto mated message] The system which ge nerated this result transmit ethel reference range : <=65. The reference range was not used to interpr et this result as za l/abnormal. [employer]0-04-21 23:42:00 Test Item Value Reference Range Interpretation Comments AST (test code = AST) 11 See_Comment [Auto mated message] The system which ge nerated this result transmit ethel reference range : <=37. The reference range was not used to interpr et this result as za l/abnormal. [employer]0-04-21 23:42:00 Test Item Value Reference Range Interpretation Comments Alk Phos (test code = Alk Phos) 86 39-136 [employer]-04-21 23:42:00 Test Item Value Reference Range Interpretation Comments Bili Total (test code = Bili Total) 0.4 0.2-1.3 [employer]-04-21 23:42:00 Test Item Value Reference Range Interpretation Comments AGAP (test code = AGAP) 14.5 10.0-20.0 [employer]-04-21 23:42:00 Test Item Value Reference Range Interpretation Comments B/C Ratio (test code = B/C Ratio) 10 1 6-25 [employer]-04-21 23:42:00 Test Item Value Reference Range Interpretation Comments Globulin (test code = Globulin) 4.4 2.7-4.2 [facility] [employer]0-04-21 23:42:00 Test Item Value Reference Range Interpretation Comments A/G Ratio (test code = A/G Ratio) 0.9 1 0.7-1.6 [facility] [employer]-04-21 23:42:00 Test Item Value Reference Range Interpretation Comments eGFR (test code = eGFR) 40 [employer]-04-21 23:42:00 Test Item Value Reference Range Interpretation Comments Lipase Lvl (test code = Lipase Lvl) 165 73-393 [facility] [id number] 23:42:00 Test Item Value Reference Range Interpretation Comments WBC (test code = WBC) 7.9 3.7-10.4 [facility] [id number] 23:42:00 Test Item Value Reference Range Interpretation Comments RBC (test code = RBC) 4.43 4.20-5.40 [id number] 23:42:00 Test Item Value Reference Range Interpretation Comments Hgb (test code = Hgb) 11.3 12.0-16.0 [place] [address]-04-21 23:42:00 Test Item Value Reference Range Interpretation Comments Hct (test code = Hct) 34.8 36.0-48.0 [facility] CenterCchytlsIYODEFGNGU2349-70-18 23:42:00 Test Item Value Reference Range Interpretation Comments MCV (test code = MCV) 78.5 80.0-98.0 [facility] CenterZbtlmyuAIHELRBNCI2934-82-85 23:42:00 Test Item Value Reference Range Interpretation Comments MCH (test code = MCH) 25.5 pg 27.0-31.0 [facility] CenterFxbvaenAPNBMPSLRA9606-23-44 23:42:00 Test Item Value Reference Range Interpretation Comments MCHC (test code = MCHC) 32.5 32.0-36.0 [facility] CenterCzqssgiBNQHRRBKRL7263-47-26 23:42:00 Test Item Value Reference Range Interpretation Comments RDW (test code = RDW) 15.6 11.5-14.5 [facility] CenterJqsflabWBRWWCBVFS5015-98-95 23:42:00 Test Item Value Reference Range Interpretation Comments Platelet (test code = Platelet) 205 133-450 [facility] CenterMqolgmoCMMVLFAYSG5351-03-41 23:42:00 Test Item Value Reference Range Interpretation Comments MPV (test code = MPV) 9.9 7.4-10.4 [facility] CenterNamnhzxRSDWUENHGY0350-04-70 23:42:00 Test Item Value Reference Range Interpretation Comments Segs (test code = Segs) 52.2 45.0-75.0 [facility] CenterCduztwmCYNSHZEMFL8589-56-97 23:42:00 Test Item Value Reference Range Interpretation Comments Lymphocytes (test code = Lymphocytes) 34.4 20.0-40.0 [place] [address]-04-21 23:42:00 Test Item Value Reference Range Interpretation Comments Monocytes (test code = Monocytes) 10.6 2.0-12.0 [place] 091700-04-21 23:42:00 Test Item Value Reference Range Interpretation Comments Eosinophils (test code = 1.0 See_Comment [A utomated message] The Eosinophils) system which ge nerated this result tra nsmitted reference range : <=4.0. The reference r [place] was not used to int erpret this result as normal/abnormal . [facility] CenterZyyefvnGTIUTDIHVD5923-84-93 23:42:00 Test Item Value Reference Range Interpretation Comments Basophils (test code = 1.8 See_Comment [Aut omated message] The Basophils) system which ge nerated this result tra nsmitted reference range : <=1.0. The reference r [place] was not used to int erpret this result as normal/abnormal . [facility] CenterAcicrtrILTZGZQRWW6421-76-19 23:42:00 Test Item Value Reference Range Interpretation Comments Neutrophils # (test code = Neutrophils 4.1 1.5-8.1 #) [facility] CenterVwknkmnDJYEDXEHJL5192-85-42 23:42:00 Test Item Value Reference Range Interpretation Comments Lymphocytes # (test code = Lymphocytes 2.7 1.0-5.5 #) [place] 091700-04-21 23:42:00 Test Item Value Reference Range Interpretation Comments Monocytes # (test code 0.8 See_Comment [Aut omated message] The = Monocytes #) system which generated this result tra nsmitted reference range : <=0.8. The reference r [place] was not used to int erpret this result as normal/abnormal . [facility] CenterMyicagkSRXDBVQTOU7626-85-99 23:42:00 Test Item Value Reference Range Interpretation Comments Eosinophils # (test code 0.1 See_Comment [A utomated message] The = Eosinophils #) system [facility] generated this result tra nsmitted reference range : <=0.5. The reference r [place] was not used to int erpret this result as normal/abnormal . [facility] CenterYreffmmCIEWPCCPXV8624-44-50 23:42:00 Test Item Value Reference Range Interpretation Comments Basophils # (test code 0.1 See_Comment [Aut omated message] The = Basophils #) system which generated this result tra nsmitted reference range : <=0.2. The reference r [place] was not used to int erpret this result as normal/abnormal . [facility] CenterDhcbvsgUIEUXHORXX6761-03-90 23:42:00 Test Item Value Reference Range Interpretation Comments Microcyte (test code = 1+ *ABN*(07/12/19 Microcyte) 6:42 PM) [facility] [employer]ial[employer]CARDIAC [id number] 23:42:00 Test Item Value Reference Range Interpretation Comments Troponin-I (test code no gt See_Comment [Auto mated message] The = Troponin-I) system which g enerated this result transmit ethel reference range : <=0.40. The reference r [place] was not used to interpr et this result as za l/abnormal. [facility] [employer] [id number] 23:42:00 Test Item Value Reference Range Interpretation Comments Glucose Lvl (test code = Glucose Lvl) 85 70-99 [facility] [employer] [id number] 23:42:00 Test Item Value Reference Range Interpretation Comments BUN (test code = BUN) 14 7-22 [facility] [employer] [id number] 23:42:00 Test Item Value Reference Range Interpretation Comments Creatinine Lvl (test code = Creatinine 1.37 0.50-1.40 Lvl) [facility] [employer] [id number] 23:42:00 Test Item Value Reference Range Interpretation Comments Sodium Lvl (test code = Sodium Lvl) 143 135-145 [facility] [employer] [id number] 23:42:00 Test Item Value Reference Range Interpretation Comments Potassium Lvl (test code = Potassium 3.5 3.5-5.1 Lvl) [facility] [employer] [id number] 23:42:00 Test Item Value Reference Range Interpretation Comments Chloride Lvl (test code = Chloride Lvl) 109 95-109 [facility] [employer] [id number] 23:42:00 Test Item Value Reference Range Interpretation Comments CO2 (test code = CO2) 23 24-32 [facility] [employer] [id number] 23:42:00 Test Item Value Reference Range Interpretation Comments Calcium Lvl (test code = Calcium Lvl) 9.2 8.5-10.5 [facility] [employer] [id number] 23:42:00 Test Item Value Reference Range Interpretation Comments Total Protein (test code = Total 8.4 6.4-8.4 Protein) [facility] Auto [id number] 23:42:00 Test Item Value Reference Range Interpretation Comments Albumin Lvl (test code = Albumin Lvl) 4.0 3.5-5.0 [facility] [employer] [id number] 23:42:00 Test Item Value Reference Range Interpretation Comments ALT (test code = ALT) 18 See_Comment [Auto mated message] The system which ge nerated this result transmit ethel reference range : <=65. The reference range was not used to interpr et this result as za l/abnormal. [facility] [employer] [id number] 23:42:00 Test Item Value Reference Range Interpretation Comments AST (test code = AST) 11 See_Comment [Auto mated message] The system which ge nerated this result transmit ethel reference range : <=37. The reference range was not used to interpr et this result as za l/abnormal. [facility] [employer] [id number] 23:42:00 Test Item Value Reference Range Interpretation Comments Alk Phos (test code = Alk Phos) 86 39-136 [facility] [employer] [id number] 23:42:00 Test Item Value Reference Range Interpretation Comments Bili Total (test code = Bili Total) 0.4 0.2-1.3 [facility] [employer] [id number] 23:42:00 Test Item Value Reference Range Interpretation Comments AGAP (test code = AGAP) 14.5 10.0-20.0 [facility] [employer] [id number] 23:42:00 Test Item Value Reference Range Interpretation Comments B/C Ratio (test code = B/C Ratio) 10 1 6-25 [facility] [employer] [id number] 23:42:00 Test Item Value Reference Range Interpretation Comments Globulin (test code = Globulin) 4.4 2.7-4.2 [facility] [employer] [id number] 23:42:00 Test Item Value Reference Range Interpretation Comments A/G Ratio (test code = A/G Ratio) 0.9 1 0.7-1.6 [facility] [employer] [id number] 23:42:00 Test Item Value Reference Range Interpretation Comments eGFR (test code = eGFR) 40 [facility] [employer] [id number] 23:42:00 Test Item Value Reference Range Interpretation Comments Lipase Lvl (test code = Lipase Lvl) 165 73-393 [facility] HospitalHoptczhKGNLXRSJRG6827-99-80 23:42:00 Test Item Value Reference Range Interpretation Comments WBC (test code = WBC) 7.9 3.7-10.4 [facility] CenterQewdlcjUEIFZFGORC1111-86-03 23:42:00 Test Item Value Reference Range Interpretation Comments RBC (test code = RBC) 4.43 4.20-5.40 [facility] CenterUpzwdqqLYYLWYHDZE2361-21-38 23:42:00 Test Item Value Reference Range Interpretation Comments Hgb (test code = Hgb) 11.3 12.0-16.0 [facility] CenterKcbxgwzFTALJHNDBK2671-23-96 23:42:00 Test Item Value Reference Range Interpretation Comments Hct (test code = Hct) 34.8 36.0-48.0 [facility] CenterYsshhmgOIYAHKXUGX9124-05-21 23:42:00 Test Item Value Reference Range Interpretation Comments MCV (test code = MCV) 78.5 80.0-98.0 [facility] CenterIpkoatyZLPWJNEFAH5922-13-89 23:42:00 Test Item Value Reference Range Interpretation Comments MCH (test code = MCH) 25.5 pg 27.0-31.0 [facility] CenterSnntlxcAXIHDYWHGR7845-99-99 23:42:00 Test Item Value Reference Range Interpretation Comments MCHC (test code = MCHC) 32.5 32.0-36.0 [facility] CenterVlgfschMJHYPOBWDM4388-59-16 23:42:00 Test Item Value Reference Range Interpretation Comments RDW (test code = RDW) 15.6 11.5-14.5 [facility] CenterTcinygsBWZVPNECQB4416-77-17 23:42:00 Test Item Value Reference Range Interpretation Comments Platelet (test code = Platelet) 205 133-450 [facility] CenterWynskqfIZLOOUVYCJ6560-32-19 23:42:00 Test Item Value Reference Range Interpretation Comments MPV (test code = MPV) 9.9 7.4-10.4 [facility] CenterKlmpfqeBALFPGMOXK7827-63-97 23:42:00 Test Item Value Reference Range Interpretation Comments Segs (test code = Segs) 52.2 45.0-75.0 [facility] CenterXnvltfcWZTEIJBXCS6304-54-94 23:42:00 Test Item Value Reference Range Interpretation Comments Lymphocytes (test code = Lymphocytes) 34.4 20.0-40.0 [facility] CenterJenexlnQTCOLKBUUX0787-24-93 23:42:00 Test Item Value Reference Range Interpretation Comments Monocytes (test code = Monocytes) 10.6 2.0-12.0 [facility] CenterBwbbrjvFNETWPNBAQ8010-96-48 23:42:00 Test Item Value Reference Range Interpretation Comments Eosinophils (test code = 1.0 See_Comment [A utomated message] The Eosinophils) system which ge nerated this result tra nsmitted reference range : <=4.0. The reference r [place] was not used to int erpret this result as normal/abnormal . [facility] CenterEeoshquPGLYGKNIWN1288-97-88 23:42:00 Test Item Value Reference Range Interpretation Comments Basophils (test code = 1.8 See_Comment [Aut omated message] The Basophils) system which ge nerated this result tra nsmitted reference range : <=1.0. The reference r [place] was not used to int erpret this result as normal/abnormal . [facility] CenterWxkeakpBUVRSEDWLY5041-78-98 23:42:00 Test Item Value Reference Range Interpretation Comments Neutrophils # (test code = Neutrophils 4.1 1.5-8.1 #) [facility] CenterFvwdtltZZMWSUUHQD6690-07-73 23:42:00 Test Item Value Reference Range Interpretation Comments Lymphocytes # (test code = Lymphocytes 2.7 1.0-5.5 #) [place] 091700-04-21 23:42:00 Test Item Value Reference Range Interpretation Comments Monocytes # (test code 0.8 See_Comment [Aut omated message] The = Monocytes #) system which generated this result tra nsmitted reference range : <=0.8. The reference r [place] was not used to int erpret this result as normal/abnormal . [facility] CenterOpezzfpFBOAVCOPQE1498-87-35 23:42:00 Test Item Value Reference Range Interpretation Comments Eosinophils # (test code 0.1 See_Comment [A utomated message] The = Eosinophils #) system whic h generated this result tra nsmitted reference range : <=0.5. The reference r [place] was not used to int erpret this result as normal/abnormal . [facility] CenterYuqtzdcKHZTDSKHYM6770-25-83 23:42:00 Test Item Value Reference Range Interpretation Comments Basophils # (test code 0.1 See_Comment [Aut omated message] The = Basophils #) system which generated this result tra nsmitted reference range : <=0.2. The reference r [place] was not used to int erpret this result as normal/abnormal . [place] 091700-04-21 23:42:00 Test Item Value Reference Range Interpretation Comments Microcyte (test code = 1+ *ABN*(07/12/19 Microcyte) 6:42 PM) [facility] [facility] [id number] 23:42:00 Test Item Value Reference Range Interpretation Comments Troponin-I (test code no gt See_Comment [Auto mated message] The = Troponin-I) system which g enerated this result transmit ethel reference range : <=0.40. The reference r [place] was not used to interpr et this result as za l/abnormal. [facility] [employer] [id number] 23:42:00 Test Item Value Reference Range Interpretation Comments Glucose Lvl (test code = Glucose Lvl) 85 70-99 [facility] [employer] [id number] 23:42:00 Test Item Value Reference Range Interpretation Comments BUN (test code = BUN) 14 7-22 [facility] [employer] [id number] 23:42:00 Test Item Value Reference Range Interpretation Comments Creatinine Lvl (test code = Creatinine 1.37 0.50-1.40 Lvl) [facility] [employer] [id number] 23:42:00 Test Item Value Reference Range Interpretation Comments Sodium Lvl (test code = Sodium Lvl) 143 135-145 [facility] [employer] [id number] 23:42:00 Test Item Value Reference Range Interpretation Comments Potassium Lvl (test code = Potassium 3.5 3.5-5.1 Lvl) [facility] [employer] [id number] 23:42:00 Test Item Value Reference Range Interpretation Comments Chloride Lvl (test code = Chloride Lvl) 109 95-109 [facility] [employer] [id number] 23:42:00 Test Item Value Reference Range Interpretation Comments CO2 (test code = CO2) 23 24-32 [facility] [employer] [id number] 23:42:00 Test Item Value Reference Range Interpretation Comments Calcium Lvl (test code = Calcium Lvl) 9.2 8.5-10.5 [facility] [employer] [id number] 23:42:00 Test Item Value Reference Range Interpretation Comments Total Protein (test code = Total 8.4 6.4-8.4 Protein) [facility]51 Auto [id number] 23:42:00 Test Item Value Reference Range Interpretation Comments Albumin Lvl (test code = Albumin Lvl) 4.0 3.5-5.0 [facility] [employer] [id number] 23:42:00 Test Item Value Reference Range Interpretation Comments ALT (test code = ALT) 18 See_Comment [Auto mated message] The system which ge nerated this result transmit ethel reference range : <=65. The reference range was not used to interpr et this result as za l/abnormal. [facility] [employer] [id number] 23:42:00 Test Item Value Reference Range Interpretation Comments AST (test code = AST) 11 See_Comment [Auto mated message] The system which ge nerated this result transmit ethel reference range : <=37. The reference range was not used to interpr et this result as za l/abnormal. [facility] [employer] [id number] 23:42:00 Test Item Value Reference Range Interpretation Comments Alk Phos (test code = Alk Phos) 86 39-136 [facility] [employer] [id number] 23:42:00 Test Item Value Reference Range Interpretation Comments Bili Total (test code = Bili Total) 0.4 0.2-1.3 [facility] [employer] [id number] 23:42:00 Test Item Value Reference Range Interpretation Comments AGAP (test code = AGAP) 14.5 10.0-20.0 [facility] [employer] [id number] 23:42:00 Test Item Value Reference Range Interpretation Comments B/C Ratio (test code = B/C Ratio) 10 1 6-25 [facility] [employer] [id number] 23:42:00 Test Item Value Reference Range Interpretation Comments Globulin (test code = Globulin) 4.4 2.7-4.2 [facility] [employer] [id number] 23:42:00 Test Item Value Reference Range Interpretation Comments A/G Ratio (test code = A/G Ratio) 0.9 1 0.7-1.6 [facility] [employer] [id number] 23:42:00 Test Item Value Reference Range Interpretation Comments eGFR (test code = eGFR) 40 [facility] [employer] [id number] 23:42:00 Test Item Value Reference Range Interpretation Comments Lipase Lvl (test code = Lipase Lvl) 165 73-393 [facility]NyrbeigDNCUJQRYZX5621-44-03 23:42:00 Test Item Value Reference Range Interpretation Comments WBC (test code = WBC) 7.9 3.7-10.4 [id number] 23:42:00 Test Item Value Reference Range Interpretation Comments RBC (test code = RBC) 4.43 4.20-5.40 [facility] CenterSiziiinIMQPSKTYAY6046-57-40 23:42:00 Test Item Value Reference Range Interpretation Comments Hgb (test code = Hgb) 11.3 12.0-16.0 [facility] CenterGcbcwbpZAJOJOSQFY8592-14-68 23:42:00 Test Item Value Reference Range Interpretation Comments Hct (test code = Hct) 34.8 36.0-48.0 [facility] CenterYnmbxjcPFMOJPCTUU4136-32-10 23:42:00 Test Item Value Reference Range Interpretation Comments MCV (test code = MCV) 78.5 80.0-98.0 [facility] CenterImfgcefIKCBXGKQBC0452-36-45 23:42:00 Test Item Value Reference Range Interpretation Comments MCH (test code = MCH) 25.5 pg 27.0-31.0 [facility] CenterEbsgvouCEMUEMSJDH2953-35-13 23:42:00 Test Item Value Reference Range Interpretation Comments MCHC (test code = MCHC) 32.5 32.0-36.0 [facility] CenterXosfqakRLLHXWSUGL0427-98-42 23:42:00 Test Item Value Reference Range Interpretation Comments RDW (test code = RDW) 15.6 11.5-14.5 [facility] CenterVukqrpzEQGIFOQSIQ2809-25-86 23:42:00 Test Item Value Reference Range Interpretation Comments Platelet (test code = Platelet) 205 133-450 [facility] CenterOidydjdLCZHPTTGHQ1983-85-40 23:42:00 Test Item Value Reference Range Interpretation Comments MPV (test code = MPV) 9.9 7.4-10.4 [facility] CenterCzhtpwjOCNNJSSBUN2394-99-45 23:42:00 Test Item Value Reference Range Interpretation Comments Segs (test code = Segs) 52.2 45.0-75.0 [facility] CenterJohzuvjTEKHLXEYWU2075-59-71 23:42:00 Test Item Value Reference Range Interpretation Comments Lymphocytes (test code = Lymphocytes) 34.4 20.0-40.0 [facility] CenterRbdzbhbNJXSEDHAUU9963-52-47 23:42:00 Test Item Value Reference Range Interpretation Comments Monocytes (test code = Monocytes) 10.6 2.0-12.0 [place] 091700-04-21 23:42:00 Test Item Value Reference Range Interpretation Comments Eosinophils (test code = 1.0 See_Comment [A utomated message] The Eosinophils) system which ge nerated this result tra nsmitted reference range : <=4.0. The reference r [place] was not used to int erpret this result as normal/abnormal . [place] [address]-04-21 23:42:00 Test Item Value Reference Range Interpretation Comments Basophils (test code = 1.8 See_Comment [Aut omated message] The Basophils) system which ge nerated this result tra nsmitted reference range : <=1.0. The reference r [place] was not used to int erpret this result as normal/abnormal . [place] [address]-04-21 23:42:00 Test Item Value Reference Range Interpretation Comments Neutrophils # (test code = Neutrophils 4.1 1.5-8.1 #) [place] [address]-04-21 23:42:00 Test Item Value Reference Range Interpretation Comments Lymphocytes # (test code = Lymphocytes 2.7 1.0-5.5 #) [place] [address]-04-21 23:42:00 Test Item Value Reference Range Interpretation Comments Monocytes # (test code 0.8 See_Comment [Aut omated message] The = Monocytes #) system which generated this result tra nsmitted reference range : <=0.8. The reference r [place] was not used to int erpret this result as normal/abnormal . [place] 091700-04-21 23:42:00 Test Item Value Reference Range Interpretation Comments Eosinophils # (test code 0.1 See_Comment [A utomated message] The = Eosinophils #) system whic h generated this result tra nsmitted reference range : <=0.5. The reference r [place] was not used to int erpret this result as normal/abnormal . [place] [address]-04-21 23:42:00 Test Item Value Reference Range Interpretation Comments Basophils # (test code 0.1 See_Comment [Aut omated message] The = Basophils #) system which generated this result tra nsmitted reference range : <=0.2. The reference r [place] was not used to int erpret this result as normal/abnormal . [facility]XwgeebaLMOENNEAJS0595-66-87 23:42:00 Test Item Value Reference Range Interpretation Comments Microcyte (test code = 1+ *ABN*(07/12/19 Microcyte) 6:42 PM) [facility] [id number] 23:42:00 Test Item Value Reference Range Interpretation Comments Troponin-I (test code no gt See_Comment [Auto mated message] The = Troponin-I) system which g enerated this result transmit ethel reference range : <=0.40. The reference r [place] was not used to interpr et this result as za l/abnormal. [facility] [employer] [id number] 23:42:00 Test Item Value Reference Range Interpretation Comments Glucose Lvl (test code = Glucose Lvl) 85 70-99 [facility]51 Auto [id number] 23:42:00 Test Item Value Reference Range Interpretation Comments BUN (test code = BUN) 14 7-22 [facility]51 Auto [id number] 23:42:00 Test Item Value Reference Range Interpretation Comments Creatinine Lvl (test code = Creatinine 1.37 0.50-1.40 Lvl) [facility]51 Auto [id number] 23:42:00 Test Item Value Reference Range Interpretation Comments Sodium Lvl (test code = Sodium Lvl) 143 135-145 [facility]51 Auto [id number] 23:42:00 Test Item Value Reference Range Interpretation Comments Potassium Lvl (test code = Potassium 3.5 3.5-5.1 Lvl) [facility]51 Auto [id number] 23:42:00 Test Item Value Reference Range Interpretation Comments Chloride Lvl (test code = Chloride Lvl) 109 95-109 [facility]51 Auto [id number] 23:42:00 Test Item Value Reference Range Interpretation Comments CO2 (test code = CO2) 23 24-32 [facility]51 Auto [id number] 23:42:00 Test Item Value Reference Range Interpretation Comments Calcium Lvl (test code = Calcium Lvl) 9.2 8.5-10.5 [facility]51 Auto [id number] 23:42:00 Test Item Value Reference Range Interpretation Comments Total Protein (test code = Total 8.4 6.4-8.4 Protein) [facility]51 Auto [id number] 23:42:00 Test Item Value Reference Range Interpretation Comments Albumin Lvl (test code = Albumin Lvl) 4.0 3.5-5.0 [facility] [employer] [id number] 23:42:00 Test Item Value Reference Range Interpretation Comments ALT (test code = ALT) 18 See_Comment [Auto mated message] The system which ge nerated this result transmit ethel reference range : <=65. The reference range was not used to interpr et this result as za l/abnormal. [facility] [employer] [id number] 23:42:00 Test Item Value Reference Range Interpretation Comments AST (test code = AST) 11 See_Comment [Auto mated message] The system which ge nerated this result transmit ethel reference range : <=37. The reference range was not used to interpr et this result as za l/abnormal. [facility] [employer] [id number] 23:42:00 Test Item Value Reference Range Interpretation Comments Alk Phos (test code = Alk Phos) 86 39-136 [facility] [employer] [id number] 23:42:00 Test Item Value Reference Range Interpretation Comments Bili Total (test code = Bili Total) 0.4 0.2-1.3 [facility] [employer] [id number] 23:42:00 Test Item Value Reference Range Interpretation Comments AGAP (test code = AGAP) 14.5 10.0-20.0 [facility] [employer] [id number] 23:42:00 Test Item Value Reference Range Interpretation Comments B/C Ratio (test code = B/C Ratio) 10 1 6-25 [facility] [employer] [id number] 23:42:00 Test Item Value Reference Range Interpretation Comments Globulin (test code = Globulin) 4.4 2.7-4.2 [facility] [employer] [id number] 23:42:00 Test Item Value Reference Range Interpretation Comments A/G Ratio (test code = A/G Ratio) 0.9 1 0.7-1.6 [facility] [employer] [id number] 23:42:00 Test Item Value Reference Range Interpretation Comments eGFR (test code = eGFR) 40 [facility] [employer] [id number] 23:42:00 Test Item Value Reference Range Interpretation Comments Lipase Lvl (test code = Lipase Lvl) 165 73-393 [facility] CenterFhnoarrMGEFUTGNVO0013-98-32 23:42:00 Test Item Value Reference Range Interpretation Comments WBC (test code = WBC) 7.9 3.7-10.4 [facility]RpfqnbaNMWYOODQXM5495-46-69 23:42:00 Test Item Value Reference Range Interpretation Comments RBC (test code = RBC) 4.43 4.20-5.40 [facility] HospitalIhfzuqvPYAAQOVPMW6885-88-02 23:42:00 Test Item Value Reference Range Interpretation Comments Hgb (test code = Hgb) 11.3 12.0-16.0 [facility] HospitalCzqmcvfWZGVTJYLWY5517-99-45 23:42:00 Test Item Value Reference Range Interpretation Comments Hct (test code = Hct) 34.8 36.0-48.0 [facility] HospitalPlgoxunEBYITXRJAR0780-27-59 23:42:00 Test Item Value Reference Range Interpretation Comments MCV (test code = MCV) 78.5 80.0-98.0 [facility] HospitalYdkzbswXDXFZGMZEM4227-90-17 23:42:00 Test Item Value Reference Range Interpretation Comments MCH (test code = MCH) 25.5 pg 27.0-31.0 [facility] HospitalZgvbmerLVGUYKHPWU3098-54-19 23:42:00 Test Item Value Reference Range Interpretation Comments MCHC (test code = MCHC) 32.5 32.0-36.0 [facility] HospitalNncsrozUFRQOQLSUW0938-64-93 23:42:00 Test Item Value Reference Range Interpretation Comments RDW (test code = RDW) 15.6 11.5-14.5 [facility] HospitalSngtujmAICGLAHZSY9328-39-90 23:42:00 Test Item Value Reference Range Interpretation Comments Platelet (test code = Platelet) 205 133-450 [facility] HospitalDqiklqtJIHQPMGSWL5963-33-22 23:42:00 Test Item Value Reference Range Interpretation Comments MPV (test code = MPV) 9.9 7.4-10.4 [facility] HospitalEnkvxivRTHCVEPLRJ4855-36-03 23:42:00 Test Item Value Reference Range Interpretation Comments Segs (test code = Segs) 52.2 45.0-75.0 [facility] HospitalWxpahfhURYNZMMETD9399-01-87 23:42:00 Test Item Value Reference Range Interpretation Comments Lymphocytes (test code = Lymphocytes) 34.4 20.0-40.0 [place] [address]-04-21 23:42:00 Test Item Value Reference Range Interpretation Comments Monocytes (test code = Monocytes) 10.6 2.0-12.0 [address]04-21 23:42:00 Test Item Value Reference Range Interpretation Comments Eosinophils (test code = 1.0 See_Comment [A utomated message] The Eosinophils) system which ge nerated this result tra nsmitted reference range : <=4.0. The reference r [place] was not used to int erpret this result as normal/abnormal . [address]04-21 23:42:00 Test Item Value Reference Range Interpretation Comments Basophils (test code = 1.8 See_Comment [Aut omated message] The Basophils) system which ge nerated this result tra nsmitted reference range : <=1.0. The reference r [place] was not used to int erpret this result as normal/abnormal . [address]04-21 23:42:00 Test Item Value Reference Range Interpretation Comments Neutrophils # (test code = Neutrophils 4.1 1.5-8.1 #) [address]04-21 23:42:00 Test Item Value Reference Range Interpretation Comments Lymphocytes # (test code = Lymphocytes 2.7 1.0-5.5 #) [address]04-21 23:42:00 Test Item Value Reference Range Interpretation Comments Monocytes # (test code 0.8 See_Comment [Aut omated message] The = Monocytes #) system which generated this result tra nsmitted reference range : <=0.8. The reference r [place] was not used to int erpret this result as normal/abnormal . [place] [address]-04-21 23:42:00 Test Item Value Reference Range Interpretation Comments Eosinophils # (test code 0.1 See_Comment [A utomated message] The = Eosinophils #) system whic h generated this result tra nsmitted reference range : <=0.5. The reference r [place] was not used to int erpret this result as normal/abnormal . [place] [address]-04-21 23:42:00 Test Item Value Reference Range Interpretation Comments Basophils # (test code 0.1 See_Comment [Aut omated message] The = Basophils #) system which generated this result tra nsmitted reference range : <=0.2. The reference r [place] was not used to int erpret this result as normal/abnormal . [facility] CenterGwxvsfrYATDLXEPPK6227-36-39 23:42:00 Test Item Value Reference Range Interpretation Comments Microcyte (test code = 1+ *ABN*(07/12/19 Microcyte) 6:42 PM) [facility]2014-07-27 10:03:00 Test Item Value Reference Range Interpretation Comments Magnesium Lvl (test code = Magnesium 1.9 1.8-2.4 Lvl) [facility]2014-07-27 10:03:00 Test Item Value Reference Range Interpretation Comments Phosphorus (test code = Phosphorus) 3.5 2.5-4.5 [facility]lb[facility]tcGFWFIOALPSRD2500-[facility]-61 10:03:00 Test Item Value Reference Range Interpretation Comments AGAP (test code = AGAP) 12.5 10.0-20.0 [facility]LgwapicJZFREQXKNIGM3738-46-71 10:03:00 Test Item Value Reference Range Interpretation Comments Chloride Lvl (test code = Chloride Lvl) 107 95-109 [facility]GgqoxvqCPYUYPRWUYHF0447-26-44 10:03:00 Test Item Value Reference Range Interpretation Comments Sodium Lvl (test code = Sodium Lvl) 141 135-145 [facility] HospitalYdvpkcyENLJMBMOJXYQ5933-59-21 10:03:00 Test Item Value Reference Range Interpretation Comments Potassium Lvl (test code = Potassium 3.5 3.5-5.1 Lvl) [facility]HwbppsjNISGCZPGHEPD7011-54-33 10:03:00 Test Item Value Reference Range Interpretation Comments eGFR (test code = eGFR) 41 [facility] HospitalHyooxksMHVNIDJADPBW9029-18-86 10:03:00 Test Item Value Reference Range Interpretation Comments Glucose Lvl (test code = Glucose Lvl) 89 70-99 [facility] HospitalHzsxxquPUJVXQXEPVCZ9967-77-23 10:03:00 Test Item Value Reference Range Interpretation Comments BUN (test code = BUN) 15 7-22 [facility] HospitalFhrbmoxZPDEEKNIDJPR7102-25-85 10:03:00 Test Item Value Reference Range Interpretation Comments Calcium Lvl (test code = Calcium Lvl) 9.0 8.5-10.5 [facility] HospitalMkzuflrSSBZWDWFGVED8662-59-53 10:03:00 Test Item Value Reference Range Interpretation Comments CO2 (test code = CO2) 25 24-32 [facility] HospitalOxuorxzZVAJRQIJWZCD7569-34-75 10:03:00 Test Item Value Reference Range Interpretation Comments Creatinine Lvl (test code = Creatinine 1.4 0.5-1.4 Lvl) [facility] HospitalSgiuwsoSZMCMSLUZC8486-95-95 10:03:00 Test Item Value Reference Range Interpretation Comments WBC (test code = WBC) 6.6 3.7-10.4 [facility] CenterMrcqnhwUFXRMFAEBJ4356-28-21 10:03:00 Test Item Value Reference Range Interpretation Comments RBC (test code = RBC) 3.95 4.20-5.40 [facility] CenterPaelbvtQJLNACTMCA3010-53-73 10:03:00 Test Item Value Reference Range Interpretation Comments MCV (test code = MCV) 62.8 81.0-99.0 [facility] CenterHpbyznwTTOMCBSVNW8593-42-70 10:03:00 Test Item Value Reference Range Interpretation Comments Hct (test code = Hct) 24.9 36.0-48.0 [facility] CenterEedvcgaFBICIDIGAK8941-99-97 10:03:00 Test Item Value Reference Range Interpretation Comments Hgb (test code = Hgb) 7.6 12.0-16.0 [facility] CenterZkkovlhCIWVKVOWYJ7695-63-98 10:03:00 Test Item Value Reference Range Interpretation Comments MPV (test code = MPV) 9.4 7.4-10.4 [facility] CenterHbuacdeCRBORWUFNK2089-05-53 10:03:00 Test Item Value Reference Range Interpretation Comments MCH (test code = MCH) 19.2 pg 27.0-31.0 [facility] CenterEqvusuuQHPILOKNYV0700-00-17 10:03:00 Test Item Value Reference Range Interpretation Comments Platelet (test code = Platelet) 196 133-450 [facility] CenterEnfdbvdTSLWPOCFRF6672-37-70 10:03:00 Test Item Value Reference Range Interpretation Comments RDW (test code = RDW) 20.6 11.5-14.5 [facility] CenterKwwgrzxBBRQXJMEBM2978-05-84 10:03:00 Test Item Value Reference Range Interpretation Comments MCHC (test code = MCHC) 30.5 32.0-36.0 [facility] CenterWmvgwmtJWOQZNKBCQ3817-05-51 10:03:00 Test Item Value Reference Range Interpretation Comments Basophils # (test code 0.1 See_Comment [Aut omated message] The = Basophils #) system which generated this result tra nsmitted reference range : <=0.2. The reference r [place] was not used to int erpret this result as normal/abnormal . [facility] CenterQmzrarcSKWFAXYBRJ0405-56-65 10:03:00 Test Item Value Reference Range Interpretation Comments Eosinophils # (test code 0.1 See_Comment [A utomated message] The = Eosinophils #) system whic h generated this result tra nsmitted reference range : <=0.5. The reference r [place] was not used to int erpret this result as normal/abnormal . [facility] CenterLyeviqgGWJSIRPLMD1778-55-68 10:03:00 Test Item Value Reference Range Interpretation Comments Elliptocyte (test code = Slight *ABN*(10/16/13 Elliptocyte) 5:03 AM) [facility] CenterMiwgqiwBTKCJVNIUA2871-27-23 10:03:00 Test Item Value Reference Range Interpretation Comments Polychrom (test code = Slight (10/16/13 5:03 Polychrom) AM) [facility] CenterLbfxsycZZUMKVPZEA2845-36-17 10:03:00 Test Item Value Reference Range Interpretation Comments Hypochrom (test code = Slight (10/16/13 5:03 Hypochrom) AM) [facility] CenterCdgxjgrHKEALIMAOF0793-94-94 10:03:00 Test Item Value Reference Range Interpretation Comments Microcyte (test code = 3+ (10/16/13 5:03 AM) Microcyte) [facility] CenterKnosfpkVKBACDUXJM7509-84-08 10:03:00 Test Item Value Reference Range Interpretation Comments Monocytes # (test code 0.6 See_Comment [Aut omated message] The = Monocytes #) system which generated this result tra nsmitted reference range : <=0.8. The reference r [place] was not used to int erpret this result as normal/abnormal . [facility] CenterMqvjlquBCTEALJSYC3420-42-89 10:03:00 Test Item Value Reference Range Interpretation Comments Segs-Bands # (test code = Segs-Bands #) 3.6 1.5-8.1 [facility] CenterKkoawruDXIORXUCJV7856-11-08 10:03:00 Test Item Value Reference Range Interpretation Comments Lymphocytes # (test code = Lymphocytes 2.1 1.0-5.5 #) [facility] CenterJyqqorkVBBORWXEET1730-60-50 10:03:00 Test Item Value Reference Range Interpretation Comments Eosinophils (test code = 1.8 See_Comment [A utomated message] The Eosinophils) system which ge nerated this result tra nsmitted reference range : <=4.0. The reference r [place] was not used to int erpret this result as normal/abnormal . [facility] CenterKbszbifRLMVQRTAOY9503-08-75 10:03:00 Test Item Value Reference Range Interpretation Comments Basophils (test code = 1.4 See_Comment [Aut omated message] The Basophils) system which ge nerated this result tra nsmitted reference range : <=1.0. The reference r [place] was not used to int erpret this result as normal/abnormal . [facility] CenterMqvidnkWRXLSREIBV6022-24-34 10:03:00 Test Item Value Reference Range Interpretation Comments Lymphocytes (test code = Lymphocytes) 32.4 20.0-40.0 [facility] CenterNfofkxvMFPFMQMGXJ1903-70-68 10:03:00 Test Item Value Reference Range Interpretation Comments Monocytes (test code = Monocytes) 8.9 2.0-12.0 [facility] CenterMtflfjyBZZNPVIUYA0921-19-57 10:03:00 Test Item Value Reference Range Interpretation Comments Plt Morph (test code = Normal (10/16/13 5:03 Plt Morph) AM) [facility] CenterOpenffuVVZXFFWHWG6753-10-97 10:03:00 Test Item Value Reference Range Interpretation Comments Segs (test code = Segs) 55.5 45.0-75.0 [facility]2014-07-27 10:03:00 Test Item Value Reference Range Interpretation Comments Magnesium Lvl (test code = Magnesium 1.9 1.8-2.4 Lvl) [facility]2014-07-27 10:03:00 Test Item Value Reference Range Interpretation Comments Phosphorus (test code = Phosphorus) 3.5 2.5-4.5 [facility]dbtyzqJSVHZHUQOMZW9971-63-26 10:03:00 Test Item Value Reference Range Interpretation Comments AGAP (test code = AGAP) 12.5 10.0-20.0 [facility] HospitalEybtmmzCSQSXSYXPGHA1022-33-96 10:03:00 Test Item Value Reference Range Interpretation Comments Chloride Lvl (test code = Chloride Lvl) 107 95-109 [facility] HospitalWdttpnaADCNIWEGVRPI5066-57-25 10:03:00 Test Item Value Reference Range Interpretation Comments Sodium Lvl (test code = Sodium Lvl) 141 135-145 [facility] HospitalWyjgprjITCXYLDEXONJ7282-34-04 10:03:00 Test Item Value Reference Range Interpretation Comments Potassium Lvl (test code = Potassium 3.5 3.5-5.1 Lvl) [facility] HospitalUkelyldMJNJCOODSDLT7838-99-14 10:03:00 Test Item Value Reference Range Interpretation Comments eGFR (test code = eGFR) 41 [facility] HospitalUqhsffpGZWTIVUMBMSD8473-53-91 10:03:00 Test Item Value Reference Range Interpretation Comments Glucose Lvl (test code = Glucose Lvl) 89 70-99 [facility] HospitalYszmqvcPGQZRVMROGWV6037-50-46 10:03:00 Test Item Value Reference Range Interpretation Comments BUN (test code = BUN) 15 7-22 [facility] HospitalSexttfjQUBPIEZPFPFN3293-37-84 10:03:00 Test Item Value Reference Range Interpretation Comments Calcium Lvl (test code = Calcium Lvl) 9.0 8.5-10.5 [facility] HospitalXheioaqNLUJALXQGWYA5460-84-78 10:03:00 Test Item Value Reference Range Interpretation Comments CO2 (test code = CO2) 25 24-32 [facility] HospitalWuaonhdBGNGMVQZHALI6034-01-40 10:03:00 Test Item Value Reference Range Interpretation Comments Creatinine Lvl (test code = Creatinine 1.4 0.5-1.4 Lvl) [facility]TbgtbydPGUDNQSAFA7755-93-40 10:03:00 Test Item Value Reference Range Interpretation Comments WBC (test code = WBC) 6.6 3.7-10.4 [facility] CenterXetohelIJUEASPJYG1794-63-62 10:03:00 Test Item Value Reference Range Interpretation Comments RBC (test code = RBC) 3.95 4.20-5.40 [facility] CenterTqxywufCMCFHOBPRE2579-70-46 10:03:00 Test Item Value Reference Range Interpretation Comments MCV (test code = MCV) 62.8 81.0-99.0 [facility] CenterAkjhqkxDJNVSYDNKD6499-76-52 10:03:00 Test Item Value Reference Range Interpretation Comments Hct (test code = Hct) 24.9 36.0-48.0 [facility] CenterLimwsndIIFQCPJGGL8240-29-34 10:03:00 Test Item Value Reference Range Interpretation Comments Hgb (test code = Hgb) 7.6 12.0-16.0 [facility] CenterPjdgsgxKVAFYQLYPQ0361-79-41 10:03:00 Test Item Value Reference Range Interpretation Comments MPV (test code = MPV) 9.4 7.4-10.4 [facility] CenterVxvfsmhZFJTPNIHQF8703-91-66 10:03:00 Test Item Value Reference Range Interpretation Comments MCH (test code = MCH) 19.2 pg 27.0-31.0 [facility] CenterNjvuxpfDPLQLTGDRT6916-52-67 10:03:00 Test Item Value Reference Range Interpretation Comments Platelet (test code = Platelet) 196 133-450 [facility] CenterEmnnnozPMHIBHZUBB1826-42-35 10:03:00 Test Item Value Reference Range Interpretation Comments RDW (test code = RDW) 20.6 11.5-14.5 [facility] CenterUbyfasoSAPTKHHTCI2343-10-47 10:03:00 Test Item Value Reference Range Interpretation Comments MCHC (test code = MCHC) 30.5 32.0-36.0 [facility] CenterHnotyahAZTORQPNLK6376-78-54 10:03:00 Test Item Value Reference Range Interpretation Comments Basophils # (test code 0.1 See_Comment [Aut omated message] The = Basophils #) system which generated this result tra nsmitted reference range : <=0.2. The reference r [place] was not used to int erpret this result as normal/abnormal . [facility] CenterQwwwwxaWSMCJFNDEW8141-39-01 10:03:00 Test Item Value Reference Range Interpretation Comments Eosinophils # (test code 0.1 See_Comment [A utomated message] The = Eosinophils #) system whic h generated this result tra nsmitted reference range : <=0.5. The reference r [place] was not used to int erpret this result as normal/abnormal . [facility] CenterBeadnveNQUWCHOAHR5957-95-24 10:03:00 Test Item Value Reference Range Interpretation Comments Elliptocyte (test code = Slight *ABN*(10/16/13 Elliptocyte) 5:03 AM) [facility] CenterJmpxrnlZUXPLLNEVX8663-09-03 10:03:00 Test Item Value Reference Range Interpretation Comments Polychrom (test code = Slight (10/16/13 5:03 Polychrom) AM) [facility] CenterUorbfouNKDITYQSJN5516-08-84 10:03:00 Test Item Value Reference Range Interpretation Comments Hypochrom (test code = Slight (10/16/13 5:03 Hypochrom) AM) [facility] CenterYusiwgeBTYBESDWXF2003-87-80 10:03:00 Test Item Value Reference Range Interpretation Comments Microcyte (test code = 3+ (10/16/13 5:03 AM) Microcyte) [facility] CenterUfsclbeFJLAZIQJTQ6752-06-36 10:03:00 Test Item Value Reference Range Interpretation Comments Monocytes # (test code 0.6 See_Comment [Aut omated message] The = Monocytes #) system which generated this result tra nsmitted reference range : <=0.8. The reference r [place] was not used to int erpret this result as normal/abnormal . [facility] CenterJquuyleTGUFJIPOZN7421-03-83 10:03:00 Test Item Value Reference Range Interpretation Comments Segs-Bands # (test code = Segs-Bands #) 3.6 1.5-8.1 [facility] CenterNcehihiLCRLCGEEVT4896-30-45 10:03:00 Test Item Value Reference Range Interpretation Comments Lymphocytes # (test code = Lymphocytes 2.1 1.0-5.5 #) [facility] CenterEjtohncUSYOFNMXXY2528-87-78 10:03:00 Test Item Value Reference Range Interpretation Comments Eosinophils (test code = 1.8 See_Comment [A utomated message] The Eosinophils) system which ge nerated this result tra nsmitted reference range : <=4.0. The reference r [place] was not used to int erpret this result as normal/abnormal . [facility] CenterLmpyoysEWCUPAKZEO4270-61-63 10:03:00 Test Item Value Reference Range Interpretation Comments Basophils (test code = 1.4 See_Comment [Aut omated message] The Basophils) system which ge nerated this result tra nsmitted reference range : <=1.0. The reference r [place] was not used to int erpret this result as normal/abnormal . [facility] CenterNqhcunrMBRGGQNTFF8470-46-92 10:03:00 Test Item Value Reference Range Interpretation Comments Lymphocytes (test code = Lymphocytes) 32.4 20.0-40.0 [facility] CenterAwhextuOJSUADMDEY4180-94-14 10:03:00 Test Item Value Reference Range Interpretation Comments Monocytes (test code = Monocytes) 8.9 2.0-12.0 [facility] CenterBtgcetdTDTKNQFOOC8928-39-23 10:03:00 Test Item Value Reference Range Interpretation Comments Plt Morph (test code = Normal (10/16/13 5:03 Plt Morph) AM) [facility]KvdosbwSJBZKMOQHE7105-47-01 10:03:00 Test Item Value Reference Range Interpretation Comments Segs (test code = Segs) 55.5 45.0-75.0 [facility] EHNKK4283-80-95 10:03:00 Test Item Value Reference Range Interpretation Comments Magnesium Lvl (test code = Magnesium 1.9 1.8-2.4 Lvl) [facility]2014-07-27 10:03:00 Test Item Value Reference Range Interpretation Comments Phosphorus (test code = Phosphorus) 3.5 2.5-4.5 [facility] HospitalErphbzpYWSDSHQVSLGY6592-70-64 10:03:00 Test Item Value Reference Range Interpretation Comments AGAP (test code = AGAP) 12.5 10.0-20.0 [facility] HospitalAqbezsmOSPIQCWYCVSQ3769-93-72 10:03:00 Test Item Value Reference Range Interpretation Comments Chloride Lvl (test code = Chloride Lvl) 107 95-109 [facility] HospitalQumlffnTPSVUPWAZRQH8958-26-81 10:03:00 Test Item Value Reference Range Interpretation Comments Sodium Lvl (test code = Sodium Lvl) 141 135-145 [facility] HospitalSfwdibiTPMIWOJFDKUX3740-16-65 10:03:00 Test Item Value Reference Range Interpretation Comments Potassium Lvl (test code = Potassium 3.5 3.5-5.1 Lvl) [facility] HospitalKtgijjtNXNPPUOXNBAF6489-95-75 10:03:00 Test Item Value Reference Range Interpretation Comments eGFR (test code = eGFR) 41 [facility] HospitalLspcpnsCJUQJRKOGLWE8891-87-60 10:03:00 Test Item Value Reference Range Interpretation Comments Glucose Lvl (test code = Glucose Lvl) 89 70-99 [facility] HospitalVbczfmqCFKNAIUWCTNS8743-10-90 10:03:00 Test Item Value Reference Range Interpretation Comments BUN (test code = BUN) 15 7-22 [facility] HospitalPmmsizlEDZYTFFKNGLE8388-77-45 10:03:00 Test Item Value Reference Range Interpretation Comments Calcium Lvl (test code = Calcium Lvl) 9.0 8.5-10.5 [facility] HospitalKamexlrJSJOQSMHCVYK3097-13-30 10:03:00 Test Item Value Reference Range Interpretation Comments CO2 (test code = CO2) 25 24-32 [facility] HospitalSuvgiixMVMUKEZDYBOB1970-22-44 10:03:00 Test Item Value Reference Range Interpretation Comments Creatinine Lvl (test code = Creatinine 1.4 0.5-1.4 Lvl) [facility] CenterCfvhbnoLFELXCIPYN1232-38-83 10:03:00 Test Item Value Reference Range Interpretation Comments WBC (test code = WBC) 6.6 3.7-10.4 [facility] CenterMumognxYLHZSKQBUC3940-57-95 10:03:00 Test Item Value Reference Range Interpretation Comments RBC (test code = RBC) 3.95 4.20-5.40 [facility] CenterEhjbsscJHVVAVIPKU0441-98-82 10:03:00 Test Item Value Reference Range Interpretation Comments MCV (test code = MCV) 62.8 81.0-99.0 [facility] CenterQlgudupRPYXYAEAYZ6321-12-02 10:03:00 Test Item Value Reference Range Interpretation Comments Hct (test code = Hct) 24.9 36.0-48.0 [facility] CenterVpkkodlDMGNONYLZQ4180-32-72 10:03:00 Test Item Value Reference Range Interpretation Comments Hgb (test code = Hgb) 7.6 12.0-16.0 [facility] CenterRrodjwkTHCGCVWPRN4243-85-74 10:03:00 Test Item Value Reference Range Interpretation Comments MPV (test code = MPV) 9.4 7.4-10.4 [facility] CenterCncpjkeVIQHCVALBI9908-93-95 10:03:00 Test Item Value Reference Range Interpretation Comments MCH (test code = MCH) 19.2 pg 27.0-31.0 [facility] CenterKgdzynbQXHIYGQFUI9729-35-54 10:03:00 Test Item Value Reference Range Interpretation Comments Platelet (test code = Platelet) 196 133-450 [facility] CenterBiuhitwIEKRMMGJZQ2139-60-25 10:03:00 Test Item Value Reference Range Interpretation Comments RDW (test code = RDW) 20.6 11.5-14.5 [facility] CenterBcrzvjlMHIWTGLBXQ2880-76-05 10:03:00 Test Item Value Reference Range Interpretation Comments MCHC (test code = MCHC) 30.5 32.0-36.0 [facility] CenterUiwmrxbFFKVNMOHPE9654-76-88 10:03:00 Test Item Value Reference Range Interpretation Comments Basophils # (test code 0.1 See_Comment [Aut omated message] The = Basophils #) system which generated this result tra nsmitted reference range : <=0.2. The reference r [place] was not used to int erpret this result as normal/abnormal . [facility] CenterYrtrckmHQQSLNJVYV3058-63-03 10:03:00 Test Item Value Reference Range Interpretation Comments Eosinophils # (test code 0.1 See_Comment [A utomated message] The = Eosinophils #) system whic h generated this result tra nsmitted reference range : <=0.5. The reference r [place] was not used to int erpret this result as normal/abnormal . [facility] CenterEwnfykaDRMABUBZHT3421-38-38 10:03:00 Test Item Value Reference Range Interpretation Comments Elliptocyte (test code = Slight *ABN*(10/16/13 Elliptocyte) 5:03 AM) [facility] CenterOfbibxfTIVYEPAYEM7895-49-21 10:03:00 Test Item Value Reference Range Interpretation Comments Polychrom (test code = Slight (10/16/13 5:03 Polychrom) AM) [facility] CenterNhdevodDLSNEHYUAA5835-27-06 10:03:00 Test Item Value Reference Range Interpretation Comments Hypochrom (test code = Slight (10/16/13 5:03 Hypochrom) AM) [facility] CenterRydpjgjBLTAJWHBJR1576-35-52 10:03:00 Test Item Value Reference Range Interpretation Comments Microcyte (test code = 3+ (10/16/13 5:03 AM) Microcyte) [facility] CenterAtddqapEAPKHOEVDP0266-51-24 10:03:00 Test Item Value Reference Range Interpretation Comments Monocytes # (test code 0.6 See_Comment [Aut omated message] The = Monocytes #) system which generated this result tra nsmitted reference range : <=0.8. The reference r [place] was not used to int erpret this result as normal/abnormal . [facility] CenterHwawmwdLVHXRQJRGO9103-46-01 10:03:00 Test Item Value Reference Range Interpretation Comments Segs-Bands # (test code = Segs-Bands #) 3.6 1.5-8.1 [facility] CenterTzwxfcyEBHHYTYCSH8241-38-81 10:03:00 Test Item Value Reference Range Interpretation Comments Lymphocytes # (test code = Lymphocytes 2.1 1.0-5.5 #) [facility] CenterHofucwxTZDQQKHKQE8015-47-30 10:03:00 Test Item Value Reference Range Interpretation Comments Eosinophils (test code = 1.8 See_Comment [A utomated message] The Eosinophils) system which ge nerated this result tra nsmitted reference range : <=4.0. The reference r [place] was not used to int erpret this result as normal/abnormal . [facility] CenterCntlwyvLPYKYJFJJI6676-19-11 10:03:00 Test Item Value Reference Range Interpretation Comments Basophils (test code = 1.4 See_Comment [Aut omated message] The Basophils) system which ge nerated this result tra nsmitted reference range : <=1.0. The reference r [place] was not used to int erpret this result as normal/abnormal . [facility] CenterIxgnnqfFTJHYGSPWP2855-69-57 10:03:00 Test Item Value Reference Range Interpretation Comments Lymphocytes (test code = Lymphocytes) 32.4 20.0-40.0 [facility] CenterCsrkkxzQMVVTVZAJS9400-19-61 10:03:00 Test Item Value Reference Range Interpretation Comments Monocytes (test code = Monocytes) 8.9 2.0-12.0 [facility] CenterQvzvmnaTZAXPMDBNB9341-94-76 10:03:00 Test Item Value Reference Range Interpretation Comments Plt Morph (test code = Normal (10/16/13 5:03 Plt Morph) AM) [facility] CenterLnnneokQFIITEBGRS8999-26-44 10:03:00 Test Item Value Reference Range Interpretation Comments Segs (test code = Segs) 55.5 45.0-75.0 [facility]2014-07-27 10:03:00 Test Item Value Reference Range Interpretation Comments Magnesium Lvl (test code = Magnesium 1.9 1.8-2.4 Lvl) [facility]2014-07-27 10:03:00 Test Item Value Reference Range Interpretation Comments Phosphorus (test code = Phosphorus) 3.5 2.5-4.5 [facility] HospitalKyneclsGZEWPYTANYAB3864-06-14 10:03:00 Test Item Value Reference Range Interpretation Comments AGAP (test code = AGAP) 12.5 10.0-20.0 [facility] HospitalCddaweyTPOMGONFGGSL3697-51-71 10:03:00 Test Item Value Reference Range Interpretation Comments Chloride Lvl (test code = Chloride Lvl) 107 95-109 [facility] HospitalHrgyfpfSINGNBWBCOTG0241-10-31 10:03:00 Test Item Value Reference Range Interpretation Comments Sodium Lvl (test code = Sodium Lvl) 141 135-145 [facility] HospitalRqqfsiaYKPDIQBKULEZ4979-31-04 10:03:00 Test Item Value Reference Range Interpretation Comments Potassium Lvl (test code = Potassium 3.5 3.5-5.1 Lvl) [facility] HospitalEnrucnjDPBUTYFPTRFA9194-62-85 10:03:00 Test Item Value Reference Range Interpretation Comments eGFR (test code = eGFR) 41 [facility] HospitalHatdrtuBOAFUQSUENAV5019-92-41 10:03:00 Test Item Value Reference Range Interpretation Comments Glucose Lvl (test code = Glucose Lvl) 89 70-99 [facility] HospitalAajbrihALYWFZZOPEML5575-50-11 10:03:00 Test Item Value Reference Range Interpretation Comments BUN (test code = BUN) 15 7-22 [facility] HospitalNyphjnsJRJMMZHCCRXL3124-10-85 10:03:00 Test Item Value Reference Range Interpretation Comments Calcium Lvl (test code = Calcium Lvl) 9.0 8.5-10.5 [facility] HospitalGwsqsuvWAIINEZIRLRM8092-38-31 10:03:00 Test Item Value Reference Range Interpretation Comments CO2 (test code = CO2) 25 24-32 [facility] HospitalRfrbzliQSOIGYFKLLDK5048-18-51 10:03:00 Test Item Value Reference Range Interpretation Comments Creatinine Lvl (test code = Creatinine 1.4 0.5-1.4 Lvl) [facility] CenterWbslqcxPUUZNXTXKO6520-81-13 10:03:00 Test Item Value Reference Range Interpretation Comments WBC (test code = WBC) 6.6 3.7-10.4 [facility] CenterTllzlepYROOGSUXMK0404-93-13 10:03:00 Test Item Value Reference Range Interpretation Comments RBC (test code = RBC) 3.95 4.20-5.40 [facility] CenterMziembyKGULMQBACW1922-12-05 10:03:00 Test Item Value Reference Range Interpretation Comments MCV (test code = MCV) 62.8 81.0-99.0 [facility] CenterWyvtfzrIQRPZXXPPP0670-68-53 10:03:00 Test Item Value Reference Range Interpretation Comments Hct (test code = Hct) 24.9 36.0-48.0 [facility] CenterVfinrauOYJJVLSJYC2718-69-53 10:03:00 Test Item Value Reference Range Interpretation Comments Hgb (test code = Hgb) 7.6 12.0-16.0 [facility] CenterZlgylwcXXYKMRQLVF7002-36-75 10:03:00 Test Item Value Reference Range Interpretation Comments MPV (test code = MPV) 9.4 7.4-10.4 [facility] CenterMwxslapIYXPAWMYZI7609-31-68 10:03:00 Test Item Value Reference Range Interpretation Comments MCH (test code = MCH) 19.2 pg 27.0-31.0 [facility] CenterIlaqevwKDSVQDLSSG0840-88-32 10:03:00 Test Item Value Reference Range Interpretation Comments Platelet (test code = Platelet) 196 133-450 [facility] CenterRslueanUHOWOKIJTR6607-03-65 10:03:00 Test Item Value Reference Range Interpretation Comments RDW (test code = RDW) 20.6 11.5-14.5 [facility] CenterEluljfjQTYMNXHZOD9739-41-70 10:03:00 Test Item Value Reference Range Interpretation Comments MCHC (test code = MCHC) 30.5 32.0-36.0 [facility] CenterCordnhtLMUVOJRJEJ6851-55-95 10:03:00 Test Item Value Reference Range Interpretation Comments Basophils # (test code 0.1 See_Comment [Aut omated message] The = Basophils #) system which generated this result tra nsmitted reference range : <=0.2. The reference r [place] was not used to int erpret this result as normal/abnormal . [facility] CenterIbgtdvoAUZXINMROI8471-85-81 10:03:00 Test Item Value Reference Range Interpretation Comments Eosinophils # (test code 0.1 See_Comment [A utomated message] The = Eosinophils #) system whic h generated this result tra nsmitted reference range : <=0.5. The reference r [place] was not used to int erpret this result as normal/abnormal . [facility] CenterMwjikkaSQRXVUXGYO9471-09-50 10:03:00 Test Item Value Reference Range Interpretation Comments Elliptocyte (test code = Slight *ABN*(10/16/13 Elliptocyte) 5:03 AM) [facility] CenterCqyvoxeBRSQTBQYRT3453-06-80 10:03:00 Test Item Value Reference Range Interpretation Comments Polychrom (test code = Slight (10/16/13 5:03 Polychrom) AM) [facility] CenterJpoiupfEQRPRSXNMG1305-07-81 10:03:00 Test Item Value Reference Range Interpretation Comments Hypochrom (test code = Slight (10/16/13 5:03 Hypochrom) AM) [facility] CenterTtiaxynDWWAOMJILN5331-31-22 10:03:00 Test Item Value Reference Range Interpretation Comments Microcyte (test code = 3+ (7/27/14 5:03 AM) Microcyte) [facility] CenterIonocgaDEUXPEXDVT6770-09-90 10:03:00 Test Item Value Reference Range Interpretation Comments Monocytes # (test code 0.6 See_Comment [Aut omated message] The = Monocytes #) system which generated this result tra nsmitted reference range : <=0.8. The reference r [place] was not used to int erpret this result as normal/abnormal . [facility] CenterGywglonRUWNVBMGKW4661-72-96 10:03:00 Test Item Value Reference Range Interpretation Comments Segs-Bands # (test code = Segs-Bands #) 3.6 1.5-8.1 [facility] CenterNvoowkrQHJSSIAOBZ3498-93-42 10:03:00 Test Item Value Reference Range Interpretation Comments Lymphocytes # (test code = Lymphocytes 2.1 1.0-5.5 #) [facility] CenterJfpyhomBSCYIUBFQT5706-70-95 10:03:00 Test Item Value Reference Range Interpretation Comments Eosinophils (test code = 1.8 See_Comment [A utomated message] The Eosinophils) system which ge nerated this result tra nsmitted reference range : <=4.0. The reference r [place] was not used to int erpret this result as normal/abnormal . [facility] CenterNlmypwgUUXQIYUHJK4350-30-68 10:03:00 Test Item Value Reference Range Interpretation Comments Basophils (test code = 1.4 See_Comment [Aut omated message] The Basophils) system which ge nerated this result tra nsmitted reference range : <=1.0. The reference r [place] was not used to int erpret this result as normal/abnormal . [facility] CenterGiscorxBLIHIIOQJK9340-15-30 10:03:00 Test Item Value Reference Range Interpretation Comments Lymphocytes (test code = Lymphocytes) 32.4 20.0-40.0 [facility] CenterGfvjknbOGEYVMVGAI8195-69-28 10:03:00 Test Item Value Reference Range Interpretation Comments Monocytes (test code = Monocytes) 8.9 2.0-12.0 [facility] CenterLizbueeFDDSGQCJBZ8593-69-64 10:03:00 Test Item Value Reference Range Interpretation Comments Plt Morph (test code = Normal (10/16/13 5:03 Plt Morph) AM) [facility] CenterLmolqovJEXPRGEBBQ4288-17-47 10:03:00 Test Item Value Reference Range Interpretation Comments Segs (test code = Segs) 55.5 45.0-75.0 [facility]2014-07-26 08:31:00 Test Item Value Reference Range Interpretation Comments Phosphorus (test code = Phosphorus) 4.0 2.5-4.5 [facility]2014-07-26 08:31:00 Test Item Value Reference Range Interpretation Comments Magnesium Lvl (test code = Magnesium 2.2 1.8-2.4 Lvl) [facility]2014-07-26 08:31:00 Test Item Value Reference Range Interpretation Comments Creatinine Lvl (test code = Creatinine 1.5 0.5-1.4 Lvl) [facility]2014-07-26 08:31:00 Test Item Value Reference Range Interpretation Comments BUN (test code = BUN) 18 7-22 [facility]2014-07-26 08:31:00 Test Item Value Reference Range Interpretation Comments Glucose Lvl (test code = Glucose Lvl) 79 70-99 [facility]2014-07-26 08:31:00 Test Item Value Reference Range Interpretation Comments Potassium Lvl (test code = Potassium 3.7 3.5-5.1 Lvl) [facility]2014-07-26 08:31:00 Test Item Value Reference Range Interpretation Comments Sodium Lvl (test code = Sodium Lvl) 142 135-145 [facility]2014-07-26 08:31:00 Test Item Value Reference Range Interpretation Comments CO2 (test code = CO2) 25 24-32 [facility]2014-07-26 08:31:00 Test Item Value Reference Range Interpretation Comments Chloride Lvl (test code = Chloride Lvl) 107 95-109 [facility]2014-07-26 08:31:00 Test Item Value Reference Range Interpretation Comments eGFR (test code = eGFR) 37 [facility]2014-07-26 08:31:00 Test Item Value Reference Range Interpretation Comments Calcium Lvl (test code = Calcium Lvl) 8.7 8.5-10.5 [facility]2014-07-26 08:31:00 Test Item Value Reference Range Interpretation Comments AGAP (test code = AGAP) 13.7 10.0-20.0 [facility]YhuloehAPTBRSKNKJ5103-70-02 08:31:00 Test Item Value Reference Range Interpretation Comments RDW (test code = RDW) 21.0 11.5-14.5 [facility] CenterUseottmKSRSDBHOVM7286-47-46 08:31:00 Test Item Value Reference Range Interpretation Comments Platelet (test code = Platelet) 183 133-450 [facility] CenterLuutemzNIPZCBZCRP3964-07-33 08:31:00 Test Item Value Reference Range Interpretation Comments MCHC (test code = MCHC) 30.5 32.0-36.0 [facility] CenterFbfkpveTCRGQWQERL4859-64-74 08:31:00 Test Item Value Reference Range Interpretation Comments MPV (test code = MPV) 9.4 7.4-10.4 [facility] CenterHpceqwtJAOTDJTUHP2156-31-66 08:31:00 Test Item Value Reference Range Interpretation Comments MCV (test code = MCV) 63.1 81.0-99.0 [facility] CenterAsriuioRBZILAGDBS1212-98-66 08:31:00 Test Item Value Reference Range Interpretation Comments WBC (test code = WBC) 7.4 3.7-10.4 [facility] CenterFsifsvuRTXJVXVYRH4403-78-49 08:31:00 Test Item Value Reference Range Interpretation Comments RBC (test code = RBC) 4.10 4.20-5.40 [facility] CenterBugtkeqKGBTZXHKIT3554-07-91 08:31:00 Test Item Value Reference Range Interpretation Comments Hct (test code = Hct) 25.8 36.0-48.0 [facility] CenterOtygoquKINYYVGJQD9257-99-38 08:31:00 Test Item Value Reference Range Interpretation Comments Hgb (test code = Hgb) 7.9 12.0-16.0 [facility] CenterZwrckfiPYDHLBMYGR2837-04-88 08:31:00 Test Item Value Reference Range Interpretation Comments MCH (test code = MCH) 19.2 pg 27.0-31.0 [facility] CenterSwgqkxqKXVNMZKXNH2998-63-53 08:31:00 Test Item Value Reference Range Interpretation Comments Eosinophils # (test code 0.2 See_Comment [A utomated message] The = Eosinophils #) system whic h generated this result tra nsmitted reference range : <=0.5. The reference r [place] was not used to int erpret this result as normal/abnormal . [facility] CenterLvagkyhDWJTTFMLJV2637-21-83 08:31:00 Test Item Value Reference Range Interpretation Comments Basophils # (test code 0.2 See_Comment [Aut omated message] The = Basophils #) system which generated this result tra nsmitted reference range : <=0.2. The reference r [place] was not used to int erpret this result as normal/abnormal . [facility] CenterRjfielcSVXWKWVSAB0533-50-34 08:31:00 Test Item Value Reference Range Interpretation Comments Segs (test code = Segs) 62.0 45.0-75.0 [facility] CenterUfeofwcSWIQROGEEJ4588-63-43 08:31:00 Test Item Value Reference Range Interpretation Comments Bands (test code = 0.0 See_Comment [Automat ed message] The Bands) system which ge nerated this result transmit ethel reference range : <=11.0. The reference r [place] was not used to interpr et this result as za l/abnormal. [facility] CenterNymcnhpMBWYTGWNIR8014-69-66 08:31:00 Test Item Value Reference Range Interpretation Comments Monocytes (test code = Monocytes) 6.0 2.0-12.0 [facility] CenterXwunjohUNVEQUMGHM2563-15-16 08:31:00 Test Item Value Reference Range Interpretation Comments Lymphocytes (test code = Lymphocytes) 26.0 20.0-40.0 [facility] CenterLqvuallZSVPLZJSHD5357-07-67 08:31:00 Test Item Value Reference Range Interpretation Comments Basophils (test code = 3.0 See_Comment [Aut omated message] The Basophils) system which ge nerated this result tra nsmitted reference range : <=1.0. The reference r [place] was not used to int erpret this result as normal/abnormal . [facility] CenterIdetgwzMOFZUBKQAX5356-07-70 08:31:00 Test Item Value Reference Range Interpretation Comments Eosinophils (test code = 3.0 See_Comment [A utomated message] The Eosinophils) system which ge nerated this result tra nsmitted reference range : <=4.0. The reference r [place] was not used to int erpret this result as normal/abnormal . [facility] CenterAtfrjihOEEFVZZCTQ8577-17-05 08:31:00 Test Item Value Reference Range Interpretation Comments Atypical Lymphs (test code = Atypical 0.0 Lymphs) [facility] CenterTiadxirBELBEBPIOQ4477-99-65 08:31:00 Test Item Value Reference Range Interpretation Comments Lymphocytes # (test code = Lymphocytes 1.9 1.0-5.5 #) [facility] CenterSoettcvGBXTKKHRAZ0436-43-16 08:31:00 Test Item Value Reference Range Interpretation Comments Segs-Bands # (test code = Segs-Bands #) 4.6 1.5-8.1 [facility] CenterVjlzmtyUDOYHCTHRN1429-22-27 08:31:00 Test Item Value Reference Range Interpretation Comments Monocytes # (test code 0.4 See_Comment [Aut omated message] The = Monocytes #) system which generated this result tra nsmitted reference range : <=0.8. The reference r [place] was not used to int erpret this result as normal/abnormal . [facility]2014-07-26 08:31:00 Test Item Value Reference Range Interpretation Comments Phosphorus (test code = Phosphorus) 4.0 2.5-4.5 [facility]2014-07-26 08:31:00 Test Item Value Reference Range Interpretation Comments Magnesium Lvl (test code = Magnesium 2.2 1.8-2.4 Lvl) [facility]2014-07-26 08:31:00 Test Item Value Reference Range Interpretation Comments Creatinine Lvl (test code = Creatinine 1.5 0.5-1.4 Lvl) [facility]2014-07-26 08:31:00 Test Item Value Reference Range Interpretation Comments BUN (test code = BUN) 18 7-22 [facility]2014-07-26 08:31:00 Test Item Value Reference Range Interpretation Comments Glucose Lvl (test code = Glucose Lvl) 79 70-99 [facility]2014-07-26 08:31:00 Test Item Value Reference Range Interpretation Comments Potassium Lvl (test code = Potassium 3.7 3.5-5.1 Lvl) [facility]2014-07-26 08:31:00 Test Item Value Reference Range Interpretation Comments Sodium Lvl (test code = Sodium Lvl) 142 135-145 [facility]2014-07-26 08:31:00 Test Item Value Reference Range Interpretation Comments CO2 (test code = CO2) 25 24-32 [facility]2014-07-26 08:31:00 Test Item Value Reference Range Interpretation Comments Chloride Lvl (test code = Chloride Lvl) 107 95-109 [facility]2014-07-26 08:31:00 Test Item Value Reference Range Interpretation Comments eGFR (test code = eGFR) 37 [facility] YWVYJ5446-31-35 08:31:00 Test Item Value Reference Range Interpretation Comments Calcium Lvl (test code = Calcium Lvl) 8.7 8.5-10.5 [facility]2014-07-26 08:31:00 Test Item Value Reference Range Interpretation Comments AGAP (test code = AGAP) 13.7 10.0-20.0 [facility] CenterJadtlneUHDIZRRTUJ8487-49-76 08:31:00 Test Item Value Reference Range Interpretation Comments RDW (test code = RDW) 21.0 11.5-14.5 [facility] CenterRmsnnlvVVSODCBWOY2793-15-31 08:31:00 Test Item Value Reference Range Interpretation Comments Platelet (test code = Platelet) 183 133-450 [facility] CenterKgklwedSJKJWFHEDP7827-88-39 08:31:00 Test Item Value Reference Range Interpretation Comments MCHC (test code = MCHC) 30.5 32.0-36.0 [facility] CenterEvksvtlADWUDFCPFE5849-27-10 08:31:00 Test Item Value Reference Range Interpretation Comments MPV (test code = MPV) 9.4 7.4-10.4 [facility] CenterOpfjtsvWBMEQKTKZW0036-66-32 08:31:00 Test Item Value Reference Range Interpretation Comments MCV (test code = MCV) 63.1 81.0-99.0 [facility] CenterUtuhrikXWPYFNNFOL7246-08-08 08:31:00 Test Item Value Reference Range Interpretation Comments WBC (test code = WBC) 7.4 3.7-10.4 [facility] CenterVbnabhlFGNVZECAND6775-21-11 08:31:00 Test Item Value Reference Range Interpretation Comments RBC (test code = RBC) 4.10 4.20-5.40 [facility] CenterQwsjrbeIWJXRNOHYS4003-61-23 08:31:00 Test Item Value Reference Range Interpretation Comments Hct (test code = Hct) 25.8 36.0-48.0 [facility] CenterJmrhbvdZOQXMPFXZN4649-70-13 08:31:00 Test Item Value Reference Range Interpretation Comments Hgb (test code = Hgb) 7.9 12.0-16.0 [facility] CenterZirviduCJZSSCIQUZ2895-49-84 08:31:00 Test Item Value Reference Range Interpretation Comments MCH (test code = MCH) 19.2 pg 27.0-31.0 [facility] CenterZetisyzCZAQKGVQYI4844-81-51 08:31:00 Test Item Value Reference Range Interpretation Comments Eosinophils # (test code 0.2 See_Comment [A utomated message] The = Eosinophils #) system whic h generated this result tra nsmitted reference range : <=0.5. The reference r [place] was not used to int erpret this result as normal/abnormal . [facility] CenterDpjrzmlDFLHSFKMCV2147-58-79 08:31:00 Test Item Value Reference Range Interpretation Comments Basophils # (test code 0.2 See_Comment [Aut omated message] The = Basophils #) system which generated this result tra nsmitted reference range : <=0.2. The reference r [place] was not used to int erpret this result as normal/abnormal . [facility] CenterRttmelgADYBBEGYAF3491-67-10 08:31:00 Test Item Value Reference Range Interpretation Comments Segs (test code = Segs) 62.0 45.0-75.0 [facility] CenterSbcjqprLBMVFPZNVJ4744-34-85 08:31:00 Test Item Value Reference Range Interpretation Comments Bands (test code = 0.0 See_Comment [Automat ed message] The Bands) system which ge nerated this result transmit ethel reference range : <=11.0. The reference r [place] was not used to interpr et this result as za l/abnormal. [facility] CenterIpoihhqHEUKKKJXTN0569-09-10 08:31:00 Test Item Value Reference Range Interpretation Comments Monocytes (test code = Monocytes) 6.0 2.0-12.0 [facility] CenterGoajemvPCQWIMANUX7095-75-80 08:31:00 Test Item Value Reference Range Interpretation Comments Lymphocytes (test code = Lymphocytes) 26.0 20.0-40.0 [facility] CenterYuqzwqgWSQPJHGUJB1085-82-52 08:31:00 Test Item Value Reference Range Interpretation Comments Basophils (test code = 3.0 See_Comment [Aut omated message] The Basophils) system which ge nerated this result tra nsmitted reference range : <=1.0. The reference r [place] was not used to int erpret this result as normal/abnormal . [facility] CenterEowkfadMOGZZAGXMC7741-50-82 08:31:00 Test Item Value Reference Range Interpretation Comments Eosinophils (test code = 3.0 See_Comment [A utomated message] The Eosinophils) system which ge nerated this result tra nsmitted reference range : <=4.0. The reference r [place] was not used to int erpret this result as normal/abnormal . [facility] CenterGivgewmZRLBIBUCZU8363-84-98 08:31:00 Test Item Value Reference Range Interpretation Comments Atypical Lymphs (test code = Atypical 0.0 Lymphs) [facility] CenterPuauafpKKYQGAFZZJ7929-84-85 08:31:00 Test Item Value Reference Range Interpretation Comments Lymphocytes # (test code = Lymphocytes 1.9 1.0-5.5 #) [facility] CenterPrqzsfvVNCGPKZYRF5024-48-85 08:31:00 Test Item Value Reference Range Interpretation Comments Segs-Bands # (test code = Segs-Bands #) 4.6 1.5-8.1 [facility] CenterEfzsdneVGZMUESFOH2847-37-10 08:31:00 Test Item Value Reference Range Interpretation Comments Monocytes # (test code 0.4 See_Comment [Aut omated message] The = Monocytes #) system which generated this result tra nsmitted reference range : <=0.8. The reference r [place] was not used to int erpret this result as normal/abnormal . [facility]2014-07-26 08:31:00 Test Item Value Reference Range Interpretation Comments Phosphorus (test code = Phosphorus) 4.0 2.5-4.5 [facility]2014-07-26 08:31:00 Test Item Value Reference Range Interpretation Comments Magnesium Lvl (test code = Magnesium 2.2 1.8-2.4 Lvl) [facility]2014-07-26 08:31:00 Test Item Value Reference Range Interpretation Comments Creatinine Lvl (test code = Creatinine 1.5 0.5-1.4 Lvl) [facility]2014-07-26 08:31:00 Test Item Value Reference Range Interpretation Comments BUN (test code = BUN) 18 7-22 [facility]2014-07-26 08:31:00 Test Item Value Reference Range Interpretation Comments Glucose Lvl (test code = Glucose Lvl) 79 70-99 [place] 310314-07-26 08:31:00 Test Item Value Reference Range Interpretation Comments Potassium Lvl (test code = Potassium 3.7 3.5-5.1 Lvl) [facility]2014-07-26 08:31:00 Test Item Value Reference Range Interpretation Comments Sodium Lvl (test code = Sodium Lvl) 142 135-145 [facility]2014-07-26 08:31:00 Test Item Value Reference Range Interpretation Comments CO2 (test code = CO2) 25 24-32 [facility]2014-07-26 08:31:00 Test Item Value Reference Range Interpretation Comments Chloride Lvl (test code = Chloride Lvl) 107 95-109 [facility]2014-07-26 08:31:00 Test Item Value Reference Range Interpretation Comments eGFR (test code = eGFR) 37 [facility]2014-07-26 08:31:00 Test Item Value Reference Range Interpretation Comments Calcium Lvl (test code = Calcium Lvl) 8.7 8.5-10.5 [facility]2014-07-26 08:31:00 Test Item Value Reference Range Interpretation Comments AGAP (test code = AGAP) 13.7 10.0-20.0 [facility] CenterXuyaagxZWTOOLJKWQ1588-04-49 08:31:00 Test Item Value Reference Range Interpretation Comments RDW (test code = RDW) 21.0 11.5-14.5 [facility] CenterPlvfhqoXRGVENCRKK7481-32-54 08:31:00 Test Item Value Reference Range Interpretation Comments Platelet (test code = Platelet) 183 133-450 [facility] CenterXonejwaVGCJBXIYEH9489-06-25 08:31:00 Test Item Value Reference Range Interpretation Comments MCHC (test code = MCHC) 30.5 32.0-36.0 [facility] CenterLoojdpuXZGVBBWFAP3833-92-68 08:31:00 Test Item Value Reference Range Interpretation Comments MPV (test code = MPV) 9.4 7.4-10.4 [facility] CenterOprcwnyECTBPRWMOG5828-68-97 08:31:00 Test Item Value Reference Range Interpretation Comments MCV (test code = MCV) 63.1 81.0-99.0 [facility] CenterTpbsxldYIDODTAYJZ1408-65-42 08:31:00 Test Item Value Reference Range Interpretation Comments WBC (test code = WBC) 7.4 3.7-10.4 [facility] CenterXsmtnynPOAOFKWUZC5920-55-56 08:31:00 Test Item Value Reference Range Interpretation Comments RBC (test code = RBC) 4.10 4.20-5.[address]07-26 08:31:00 Test Item Value Reference Range Interpretation Comments Hct (test code = Hct) 25.8 36.0-48.0 [facility] CenterTlwbxwaAFPUYMUPTE8423-87-52 08:31:00 Test Item Value Reference Range Interpretation Comments Hgb (test code = Hgb) 7.9 12.0-16.0 [facility] CenterHcwbzlwSSKRGEPJFL5255-31-53 08:31:00 Test Item Value Reference Range Interpretation Comments MCH (test code = MCH) 19.2 pg 27.0-31.0 [facility] CenterRwqnrypXJVWPGEONL1661-24-59 08:31:00 Test Item Value Reference Range Interpretation Comments Eosinophils # (test code 0.2 See_Comment [A utomated message] The = Eosinophils #) system whic h generated this result tra nsmitted reference range : <=0.5. The reference r [place] was not used to int erpret this result as normal/abnormal . [facility] CenterLwvprorIRKGRUOLMD6987-92-83 08:31:00 Test Item Value Reference Range Interpretation Comments Basophils # (test code 0.2 See_Comment [Aut omated message] The = Basophils #) system which generated this result tra nsmitted reference range : <=0.2. The reference r [place] was not used to int erpret this result as normal/abnormal . [facility] CenterWhqbcemQUCKJDZYUX6322-31-91 08:31:00 Test Item Value Reference Range Interpretation Comments Segs (test code = Segs) 62.0 45.0-75.0 [facility] CenterQprmiijZYPLMNMGVZ3642-47-59 08:31:00 Test Item Value Reference Range Interpretation Comments Bands (test code = 0.0 See_Comment [Automat ed message] The Bands) system which ge nerated this result transmit ethel reference range : <=11.0. The reference r [place] was not used to interpr et this result as za l/abnormal. [facility] CenterJmqsusmTMHRMOLUEE2273-10-76 08:31:00 Test Item Value Reference Range Interpretation Comments Monocytes (test code = Monocytes) 6.0 2.0-12.0 [facility] CenterCysihhnULMWYVQXGV8064-36-51 08:31:00 Test Item Value Reference Range Interpretation Comments Lymphocytes (test code = Lymphocytes) 26.0 20.0-40.0 [facility] CenterLpwemlbHEVXRHEEOK2667-22-79 08:31:00 Test Item Value Reference Range Interpretation Comments Basophils (test code = 3.0 See_Comment [Aut omated message] The Basophils) system which ge nerated this result tra nsmitted reference range : <=1.0. The reference r [place] was not used to int erpret this result as normal/abnormal . [facility] CenterRhtdaifUBJNIGYYCP1818-22-06 08:31:00 Test Item Value Reference Range Interpretation Comments Eosinophils (test code = 3.0 See_Comment [A utomated message] The Eosinophils) system which ge nerated this result tra nsmitted reference range : <=4.0. The reference r [place] was not used to int erpret this result as normal/abnormal . [facility] CenterYhirpvbGWGRNELICH7144-33-54 08:31:00 Test Item Value Reference Range Interpretation Comments Atypical Lymphs (test code = Atypical 0.0 Lymphs) [facility] CenterFjmfqmaGVQMOLFHCL3086-19-76 08:31:00 Test Item Value Reference Range Interpretation Comments Lymphocytes # (test code = Lymphocytes 1.9 1.0-5.5 #) [facility] CenterZzpxvxiLCBAIKLLRJ6343-04-68 08:31:00 Test Item Value Reference Range Interpretation Comments Segs-Bands # (test code = Segs-Bands #) 4.6 1.5-8.1 [facility] CenterGukyanmNXRJMWDTSA0138-57-45 08:31:00 Test Item Value Reference Range Interpretation Comments Monocytes # (test code 0.4 See_Comment [Aut omated message] The = Monocytes #) system which generated this result tra nsmitted reference range : <=0.8. The reference r [place] was not used to int erpret this result as normal/abnormal . [facility]2014-07-26 08:31:00 Test Item Value Reference Range Interpretation Comments Phosphorus (test code = Phosphorus) 4.0 2.5-4.5 [facility]2014-07-26 08:31:00 Test Item Value Reference Range Interpretation Comments Magnesium Lvl (test code = Magnesium 2.2 1.8-2.4 Lvl) [facility]2014-07-26 08:31:00 Test Item Value Reference Range Interpretation Comments Creatinine Lvl (test code = Creatinine 1.5 0.5-1.4 Lvl) [facility]2014-07-26 08:31:00 Test Item Value Reference Range Interpretation Comments BUN (test code = BUN) 18 7-22 [facility]2014-07-26 08:31:00 Test Item Value Reference Range Interpretation Comments Glucose Lvl (test code = Glucose Lvl) 79 70-99 [facility]2014-07-26 08:31:00 Test Item Value Reference Range Interpretation Comments Potassium Lvl (test code = Potassium 3.7 3.5-5.1 Lvl) [facility]2014-07-26 08:31:00 Test Item Value Reference Range Interpretation Comments Sodium Lvl (test code = Sodium Lvl) 142 135-145 [facility]2014-07-26 08:31:00 Test Item Value Reference Range Interpretation Comments CO2 (test code = CO2) 25 24-32 [facility]2014-07-26 08:31:00 Test Item Value Reference Range Interpretation Comments Chloride Lvl (test code = Chloride Lvl) 107 95-109 [facility]2014-07-26 08:31:00 Test Item Value Reference Range Interpretation Comments eGFR (test code = eGFR) 37 [facility]2014-07-26 08:31:00 Test Item Value Reference Range Interpretation Comments Calcium Lvl (test code = Calcium Lvl) 8.7 8.5-10.5 [facility]2014-07-26 08:31:00 Test Item Value Reference Range Interpretation Comments AGAP (test code = AGAP) 13.7 10.0-20.0 [facility] CenterYlvkzykFYGNLLQFZS6094-82-92 08:31:00 Test Item Value Reference Range Interpretation Comments RDW (test code = RDW) 21.0 11.5-14.5 [facility] CenterNgfgvicHHRTFPKESQ5335-47-87 08:31:00 Test Item Value Reference Range Interpretation Comments Platelet (test code = Platelet) 183 133-450 [facility] CenterApfulvcDKZQVUQRPW2160-69-91 08:31:00 Test Item Value Reference Range Interpretation Comments MCHC (test code = MCHC) 30.5 32.0-36.0 [facility] CenterZjsfchcUTUQKBYTPE6844-97-32 08:31:00 Test Item Value Reference Range Interpretation Comments MPV (test code = MPV) 9.4 7.4-10.4 [facility] CenterYkgufdzTLTXOZJOTR6708-70-73 08:31:00 Test Item Value Reference Range Interpretation Comments MCV (test code = MCV) 63.1 81.0-99.0 [facility] CenterSusfmxyNYYZZJZMMK3721-55-92 08:31:00 Test Item Value Reference Range Interpretation Comments WBC (test code = WBC) 7.4 3.7-10.4 [facility] CenterQqvyjmlUTNQTOSGJN1728-25-35 08:31:00 Test Item Value Reference Range Interpretation Comments RBC (test code = RBC) 4.10 4.20-5.40 [facility] CenterQixiapgHZRCEFYMDN2558-66-12 08:31:00 Test Item Value Reference Range Interpretation Comments Hct (test code = Hct) 25.8 36.0-48.0 [facility] CenterRxematnVPFQSTGRPD9384-83-36 08:31:00 Test Item Value Reference Range Interpretation Comments Hgb (test code = Hgb) 7.9 12.0-16.0 [facility] CenterVkgtmwcAEUAXTRKGY1438-39-28 08:31:00 Test Item Value Reference Range Interpretation Comments MCH (test code = MCH) 19.2 pg 27.0-31.0 [facility] CenterBxraooeNGOGQJAGEK8264-02-90 08:31:00 Test Item Value Reference Range Interpretation Comments Eosinophils # (test code 0.2 See_Comment [A utomated message] The = Eosinophils #) system whic h generated this result tra nsmitted reference range : <=0.5. The reference r [place] was not used to int erpret this result as normal/abnormal . [facility] CenterVuyebskXVILUCEYHI7549-92-93 08:31:00 Test Item Value Reference Range Interpretation Comments Basophils # (test code 0.2 See_Comment [Aut omated message] The = Basophils #) system which generated this result tra nsmitted reference range : <=0.2. The reference r [place] was not used to int erpret this result as normal/abnormal . [facility] CenterMaeuvwrJKXRDROTGO0225-23-57 08:31:00 Test Item Value Reference Range Interpretation Comments Segs (test code = Segs) 62.0 45.0-75.0 [facility] CenterAvmuhoaINIJTDOOXE5909-22-36 08:31:00 Test Item Value Reference Range Interpretation Comments Bands (test code = 0.0 See_Comment [Automat ed message] The Bands) system which ge nerated this result transmit ethel reference range : <=11.0. The reference r [place] was not used to interpr et this result as za l/abnormal. [facility] CenterCvxojzuLHOEFJHXVR2471-67-35 08:31:00 Test Item Value Reference Range Interpretation Comments Monocytes (test code = Monocytes) 6.0 2.0-12.0 [facility] CenterFzcyghsCHGRMCBQZZ9420-23-44 08:31:00 Test Item Value Reference Range Interpretation Comments Lymphocytes (test code = Lymphocytes) 26.0 20.0-40.0 [facility] CenterZexomzuARUCYWDMWK5327-45-04 08:31:00 Test Item Value Reference Range Interpretation Comments Basophils (test code = 3.0 See_Comment [Aut omated message] The Basophils) system which ge nerated this result tra nsmitted reference range : <=1.0. The reference r [place] was not used to int erpret this result as normal/abnormal . [facility] CenterFyhqmbvVWEOFTHHSK9399-90-59 08:31:00 Test Item Value Reference Range Interpretation Comments Eosinophils (test code = 3.0 See_Comment [A utomated message] The Eosinophils) system which ge nerated this result tra nsmitted reference range : <=4.0. The reference r [place] was not used to int erpret this result as normal/abnormal . [facility] CenterGfefuwoIOFKLQDCOF1109-41-48 08:31:00 Test Item Value Reference Range Interpretation Comments Atypical Lymphs (test code = Atypical 0.0 Lymphs) [facility] CenterOpidfliRJHYTSBUPW5453-08-08 08:31:00 Test Item Value Reference Range Interpretation Comments Lymphocytes # (test code = Lymphocytes 1.9 1.0-5.5 #) [facility] CenterZebdsxpPMYZPFENTB5829-70-79 08:31:00 Test Item Value Reference Range Interpretation Comments Segs-Bands # (test code = Segs-Bands #) 4.6 1.5-8.1 [facility] CenterFfkswxaSYMDUMUYQX6402-26-98 08:31:00 Test Item Value Reference Range Interpretation Comments Monocytes # (test code 0.4 See_Comment [Aut omated message] The = Monocytes #) system which generated this result tra nsmitted reference range : <=0.8. The reference r [place] was not used to int erpret this result as normal/abnormal . [facility] [facility] [id number] 23:59:21 Test Item Value Reference Range Interpretation Comments Fecal Leukocyte (test None Seen 11(10/14/13 code = Fecal Leukocyte) 6:59 PM) [facility] [id number] 23:59:21 Test Item Value Reference Range Interpretation Comments Fecal Leukocyte (test None Seen 11(10/14/13 code = Fecal Leukocyte) 6:59 PM) [facility] [id number] 23:59:21 Test Item Value Reference Range Interpretation Comments Fecal Leukocyte (test None Seen 11(10/14/13 code = Fecal Leukocyte) 6:59 PM) [facility] AND [id number] 23:59:21 Test Item Value Reference Range Interpretation Comments Fecal Leukocyte (test None Seen 11(10/14/13 code = Fecal Leukocyte) 6:59 PM) [facility]2014-07-25 23:59:17 Test Item Value Reference Range Interpretation Comments C difficile DNA (test Negative 16(10/14/13 code = C difficile DNA) 6:59 PM) [facility]2014-07-25 23:59:17 Test Item Value Reference Range Interpretation Comments C difficile DNA (test Negative 16(10/14/13 code = C difficile DNA) 6:59 PM) [facility] [id number] 23:59:17 Test Item Value Reference Range Interpretation Comments C difficile DNA (test Negative 16(10/14/13 code = C difficile DNA) 6:59 PM) [facility]2014-07-25 23:59:17 Test Item Value Reference Range Interpretation Comments C difficile DNA (test Negative 16(10/14/13 code = C difficile DNA) 6:59 PM) [facility]FdnvwlrUEHLGCRRNA8047-75-55 18:31:29 Test Item Value Reference Range Interpretation Comments Hgb (test code = Hgb) 7.8 12.0-16.0 [facility] CenterWbxtpwsBAKWTKTZIG0570-94-04 18:31:29 Test Item Value Reference Range Interpretation Comments Hct (test code = Hct) 25.8 36.0-48.0 [facility] CenterEragddmQGRVBTMAGN3874-35-37 18:31:29 Test Item Value Reference Range Interpretation Comments Hgb (test code = Hgb) 7.8 12.0-16.0 [facility] CenterNqkrgqsXNDIQJBUYQ8630-07-62 18:31:29 Test Item Value Reference Range Interpretation Comments Hct (test code = Hct) 25.8 36.0-48.0 [facility] CenterOhoonqwLTFOKBUBBW6419-80-86 18:31:29 Test Item Value Reference Range Interpretation Comments Hgb (test code = Hgb) 7.8 12.0-16.0 [facility] CenterWrmczyiYAYTCVHWVL5030-50-09 18:31:29 Test Item Value Reference Range Interpretation Comments Hct (test code = Hct) 25.8 36.0-48.0 [facility] CenterGybmdkyXUMETXDCWF1604-83-30 18:31:29 Test Item Value Reference Range Interpretation Comments Hgb (test code = Hgb) 7.8 12.0-16.0 [facility] CenterNaltcbpKAZHSHTKXO3848-34-78 18:31:29 Test Item Value Reference Range Interpretation Comments Hct (test code = Hct) 25.8 36.0-48.0 [facility]2014-07-25 06:46:00 Test Item Value Reference Range Interpretation Comments Magnesium Lvl (test code = Magnesium 1.8 1.8-2.4 Lvl) [facility]2014-07-25 06:46:00 Test Item Value Reference Range Interpretation Comments Phosphorus (test code = Phosphorus) 3.2 2.5-4.5 [facility]2014-07-25 06:46:00 Test Item Value Reference Range Interpretation Comments eGFR (test code = eGFR) 44 [facility]2014-07-25 06:46:00 Test Item Value Reference Range Interpretation Comments Sodium Lvl (test code = Sodium Lvl) 144 135-145 [facility]2014-07-25 06:46:00 Test Item Value Reference Range Interpretation Comments Potassium Lvl (test code = Potassium 4.0 3.5-5.1 Lvl) [facility]2014-07-25 06:46:00 Test Item Value Reference Range Interpretation Comments BUN (test code = BUN) 14 7-22 [facility]2014-07-25 06:46:00 Test Item Value Reference Range Interpretation Comments Creatinine Lvl (test code = Creatinine 1.3 0.5-1.4 Lvl) [facility]2014-07-25 06:46:00 Test Item Value Reference Range Interpretation Comments Glucose Lvl (test code = Glucose Lvl) 86 70-99 [place] 310314-07-25 06:46:00 Test Item Value Reference Range Interpretation Comments Calcium Lvl (test code = Calcium Lvl) 8.4 8.5-10.5 [facility]2014-07-25 06:46:00 Test Item Value Reference Range Interpretation Comments AGAP (test code = AGAP) 15.0 10.0-20.0 [facility]2014-07-25 06:46:00 Test Item Value Reference Range Interpretation Comments CO2 (test code = CO2) 24 24-32 [facility]2014-07-25 06:46:00 Test Item Value Reference Range Interpretation Comments Chloride Lvl (test code = Chloride Lvl) 109 95-109 [facility]2014-07-25 06:46:00 Test Item Value Reference Range Interpretation Comments Lipase Lvl (test code = Lipase Lvl) 152 73-393 [facility]2014-07-25 06:46:00 Test Item Value Reference Range Interpretation Comments Amylase Lvl (test code = Amylase Lvl) 58 25-115 [facility] CenterWqgulcbWESPQRBEQL5712-82-77 06:46:00 Test Item Value Reference Range Interpretation Comments Segs (test code = Segs) 59.9 45.0-75.0 [facility] CenterGgrxngrGHHNRNWLLM5083-45-70 06:46:00 Test Item Value Reference Range Interpretation Comments Lymphocytes (test code = Lymphocytes) 30.8 20.0-40.0 [facility] CenterQsrajlxBBUTAELBOI3719-02-02 06:46:00 Test Item Value Reference Range Interpretation Comments Segs-Bands # (test code = Segs-Bands #) 4.4 1.5-8.1 [facility] CenterNlpejncLDTRIWEYPT0363-24-53 06:46:00 Test Item Value Reference Range Interpretation Comments Basophils (test code = 1.1 See_Comment [Aut omated message] The Basophils) system which ge nerated this result tra nsmitted reference range : <=1.0. The reference r [place] was not used to int erpret this result as normal/abnormal . [facility] CenterMoiomnxRAQVBOAFSI7114-04-05 06:46:00 Test Item Value Reference Range Interpretation Comments Microcyte (test code = 3+ *NA*(10/14/13 1:46 Microcyte) AM) [facility] CenterDmstuvxFGMVNKHEGU5507-74-28 06:46:00 Test Item Value Reference Range Interpretation Comments Basophils # (test code 0.1 See_Comment [Aut omated message] The = Basophils #) system which generated this result tra nsmitted reference range : <=0.2. The reference r [place] was not used to int erpret this result as normal/abnormal . [facility] CenterEldcokmZAIIDNLOKG0030-53-68 06:46:00 Test Item Value Reference Range Interpretation Comments Monocytes # (test code 0.6 See_Comment [Aut omated message] The = Monocytes #) system which generated this result tra nsmitted reference range : <=0.8. The reference r [place] was not used to int erpret this result as normal/abnormal . [facility] CenterNjnmuxxFDUEJEFVXW0701-60-32 06:46:00 Test Item Value Reference Range Interpretation Comments Eosinophils (test code = 0.4 See_Comment [A utomated message] The Eosinophils) system which ge nerated this result tra nsmitted reference range : <=4.0. The reference r ge[place] was not used to int erpret this result as normal/abnormal . [facility] CenterKkkexgaOBYQYUJPZR1644-11-35 06:46:00 Test Item Value Reference Range Interpretation Comments Lymphocytes # (test code = Lymphocytes 2.3 1.0-5.5 #) [facility] CenterZzuuhueDIWADDNJNW6055-76-27 06:46:00 Test Item Value Reference Range Interpretation Comments Monocytes (test code = Monocytes) 7.8 2.0-12.0 [facility] CenterHovnadnYKBHBXIDST1929-24-75 06:46:00 Test Item Value Reference Range Interpretation Comments Platelet (test code = Platelet) 187 133-450 [facility] CenterVyawxsbGOYIXKRPAW7525-00-17 06:46:00 Test Item Value Reference Range Interpretation Comments RDW (test code = RDW) 19.5 11.5-14.5 [facility] CenterRlqzjcaUZOZYHOTOL5490-95-07 06:46:00 Test Item Value Reference Range Interpretation Comments WBC (test code = WBC) 7.3 3.7-10.4 [facility] CenterTxhjrhiLBKZXURKUF0955-91-74 06:46:00 Test Item Value Reference Range Interpretation Comments RBC (test code = RBC) 3.89 4.20-5.40 [facility] CenterHrupitgJPFQJBNSBA4895-42-86 06:46:00 Test Item Value Reference Range Interpretation Comments MCV (test code = MCV) 62.5 81.0-99.0 [facility] CenterWrckptfYTWOCKZCTI5409-09-35 06:46:00 Test Item Value Reference Range Interpretation Comments MCH (test code = MCH) 19.2 pg 27.0-31.0 [facility] CenterBnfyqyjMEUUCPLVYF1520-33-76 06:46:00 Test Item Value Reference Range Interpretation Comments MCHC (test code = MCHC) 30.8 32.0-36.0 [facility] CenterCgjgjrtMTNHPFEZPB0805-64-91 06:46:00 Test Item Value Reference Range Interpretation Comments MPV (test code = MPV) 9.2 7.4-10.4 [facility]2014-07-25 06:46:00 Test Item Value Reference Range Interpretation Comments Magnesium Lvl (test code = Magnesium 1.8 1.8-2.4 Lvl) [facility]2014-07-25 06:46:00 Test Item Value Reference Range Interpretation Comments Phosphorus (test code = Phosphorus) 3.2 2.5-4.5 [facility]2014-07-25 06:46:00 Test Item Value Reference Range Interpretation Comments eGFR (test code = eGFR) 44 [facility]2014-07-25 06:46:00 Test Item Value Reference Range Interpretation Comments Sodium Lvl (test code = Sodium Lvl) 144 135-145 [facility]2014-07-25 06:46:00 Test Item Value Reference Range Interpretation Comments Potassium Lvl (test code = Potassium 4.0 3.5-5.1 Lvl) [facility]2014-07-25 06:46:00 Test Item Value Reference Range Interpretation Comments BUN (test code = BUN) 14 7-22 [facility]2014-07-25 06:46:00 Test Item Value Reference Range Interpretation Comments Creatinine Lvl (test code = Creatinine 1.3 0.5-1.4 Lvl) [facility]2014-07-25 06:46:00 Test Item Value Reference Range Interpretation Comments Glucose Lvl (test code = Glucose Lvl) 86 70-99 [facility]2014-07-25 06:46:00 Test Item Value Reference Range Interpretation Comments Calcium Lvl (test code = Calcium Lvl) 8.4 8.5-10.5 [facility]2014-07-25 06:46:00 Test Item Value Reference Range Interpretation Comments AGAP (test code = AGAP) 15.0 10.0-20.0 [facility]2014-07-25 06:46:00 Test Item Value Reference Range Interpretation Comments CO2 (test code = CO2) 24 24-32 [facility]2014-07-25 06:46:00 Test Item Value Reference Range Interpretation Comments Chloride Lvl (test code = Chloride Lvl) 109 95-109 [facility]2014-07-25 06:46:00 Test Item Value Reference Range Interpretation Comments Lipase Lvl (test code = Lipase Lvl) 152 73-393 [facility]2014-07-25 06:46:00 Test Item Value Reference Range Interpretation Comments Amylase Lvl (test code = Amylase Lvl) 58 25-115 [facility] CenterDykdiflVXBDIJEJHV1046-82-11 06:46:00 Test Item Value Reference Range Interpretation Comments Segs (test code = Segs) 59.9 45.0-75.0 [facility] CenterRsfzowzZZFRACZMKJ9707-75-57 06:46:00 Test Item Value Reference Range Interpretation Comments Lymphocytes (test code = Lymphocytes) 30.8 20.0-40.0 [facility] CenterGtlggxmYCJLOQHGBK0448-59-10 06:46:00 Test Item Value Reference Range Interpretation Comments Segs-Bands # (test code = Segs-Bands #) 4.4 1.5-8.1 [facility] CenterHmogmzyLYMZVYMTGV7110-42-37 06:46:00 Test Item Value Reference Range Interpretation Comments Basophils (test code = 1.1 See_Comment [Aut omated message] The Basophils) system which ge nerated this result tra nsmitted reference range : <=1.0. The reference r [place] was not used to int erpret this result as normal/abnormal . [facility] CenterCwotfutVLQWDCYVLI1859-80-41 06:46:00 Test Item Value Reference Range Interpretation Comments Microcyte (test code = 3+ *NA*(10/14/13 1:46 Microcyte) AM) [facility] CenterFfahwajWDAJVLTOVE1190-15-45 06:46:00 Test Item Value Reference Range Interpretation Comments Basophils # (test code 0.1 See_Comment [Aut omated message] The = Basophils #) system which generated this result tra nsmitted reference range : <=0.2. The reference r ge[place] was not used to int erpret this result as normal/abnormal . [facility] CenterAlenecxSBRSUXEXOI5545-47-43 06:46:00 Test Item Value Reference Range Interpretation Comments Monocytes # (test code 0.6 See_Comment [Aut omated message] The = Monocytes #) system which generated this result tra nsmitted reference range : <=0.8. The reference r ge[place] was not used to int erpret this result as normal/abnormal . [facility] CenterBltnwqcQZHAFRRZWO6974-78-67 06:46:00 Test Item Value Reference Range Interpretation Comments Eosinophils (test code = 0.4 See_Comment [A utomated message] The Eosinophils) system which ge nerated this result tra nsmitted reference range : <=4.0. The reference r [place] was not used to int erpret this result as normal/abnormal . [facility] CenterHgokhskQVFTRFOEFE8804-62-15 06:46:00 Test Item Value Reference Range Interpretation Comments Lymphocytes # (test code = Lymphocytes 2.3 1.0-5.5 #) [facility] CenterHllwwtuIZAVJSOAXH1510-45-84 06:46:00 Test Item Value Reference Range Interpretation Comments Monocytes (test code = Monocytes) 7.8 2.0-12.0 [facility] CenterXxoqxzhNSWEIUXXTA1741-05-90 06:46:00 Test Item Value Reference Range Interpretation Comments Platelet (test code = Platelet) 187 133-450 [facility] CenterDclcbzfEDXOLMERDC8258-72-58 06:46:00 Test Item Value Reference Range Interpretation Comments RDW (test code = RDW) 19.5 11.5-14.5 [facility] CenterMceivzcKLNGMENUCO7388-97-89 06:46:00 Test Item Value Reference Range Interpretation Comments WBC (test code = WBC) 7.3 3.7-10.4 [facility] CenterXkrbkioWGYYNZSOWR5743-40-55 06:46:00 Test Item Value Reference Range Interpretation Comments RBC (test code = RBC) 3.89 4.20-5.40 [facility] CenterWmmonsbFZVOGVHMCJ1143-05-98 06:46:00 Test Item Value Reference Range Interpretation Comments MCV (test code = MCV) 62.5 81.0-99.0 [facility] CenterLdoydioNFLSXLAIXJ5653-62-39 06:46:00 Test Item Value Reference Range Interpretation Comments MCH (test code = MCH) 19.2 pg 27.0-31.0 [facility] CenterMjchlewFAUMOFHOBR0158-52-27 06:46:00 Test Item Value Reference Range Interpretation Comments MCHC (test code = MCHC) 30.8 32.0-36.0 [facility] CenterNkjwqlmAQHUFNDCMB4344-29-05 06:46:00 Test Item Value Reference Range Interpretation Comments MPV (test code = MPV) 9.2 7.4-10.4 [facility]2014-07-25 06:46:00 Test Item Value Reference Range Interpretation Comments Magnesium Lvl (test code = Magnesium 1.8 1.8-2.4 Lvl) [facility]2014-07-25 06:46:00 Test Item Value Reference Range Interpretation Comments Phosphorus (test code = Phosphorus) 3.2 2.5-4.5 [facility]2014-07-25 06:46:00 Test Item Value Reference Range Interpretation Comments eGFR (test code = eGFR) 44 [facility]2014-07-25 06:46:00 Test Item Value Reference Range Interpretation Comments Sodium Lvl (test code = Sodium Lvl) 144 135-145 [facility]2014-07-25 06:46:00 Test Item Value Reference Range Interpretation Comments Potassium Lvl (test code = Potassium 4.0 3.5-5.1 Lvl) [facility]2014-07-25 06:46:00 Test Item Value Reference Range Interpretation Comments BUN (test code = BUN) 14 7-22 [facility]2014-07-25 06:46:00 Test Item Value Reference Range Interpretation Comments Creatinine Lvl (test code = Creatinine 1.3 0.5-1.4 Lvl) [facility]2014-07-25 06:46:00 Test Item Value Reference Range Interpretation Comments Glucose Lvl (test code = Glucose Lvl) 86 70-99 [facility]2014-07-25 06:46:00 Test Item Value Reference Range Interpretation Comments Calcium Lvl (test code = Calcium Lvl) 8.4 8.5-10.5 [facility]2014-07-25 06:46:00 Test Item Value Reference Range Interpretation Comments AGAP (test code = AGAP) 15.0 10.0-20.0 [facility]2014-07-25 06:46:00 Test Item Value Reference Range Interpretation Comments CO2 (test code = CO2) 24 24-32 [facility]2014-07-25 06:46:00 Test Item Value Reference Range Interpretation Comments Chloride Lvl (test code = Chloride Lvl) 109 95-109 [facility]2014-07-25 06:46:00 Test Item Value Reference Range Interpretation Comments Lipase Lvl (test code = Lipase Lvl) 152 73-393 [facility]2014-07-25 06:46:00 Test Item Value Reference Range Interpretation Comments Amylase Lvl (test code = Amylase Lvl) 58 25-115 [facility] CenterLzcsztbZKCWIWPMHW7289-70-34 06:46:00 Test Item Value Reference Range Interpretation Comments Segs (test code = Segs) 59.9 45.0-75.0 [facility] CenterOsgaxocBVGCATECAN6030-26-10 06:46:00 Test Item Value Reference Range Interpretation Comments Lymphocytes (test code = Lymphocytes) 30.8 20.0-40.0 [facility] CenterIxiyrmoICGZXNKGEN2260-96-51 06:46:00 Test Item Value Reference Range Interpretation Comments Segs-Bands # (test code = Segs-Bands #) 4.4 1.5-8.1 [facility] CenterUgocdlaQLOIJNNAQN8764-62-69 06:46:00 Test Item Value Reference Range Interpretation Comments Basophils (test code = 1.1 See_Comment [Aut omated message] The Basophils) system which ge nerated this result tra nsmitted reference range : <=1.0. The reference r [place] was not used to int erpret this result as normal/abnormal . [facility] CenterJczevnoXZOYPLNMOG7614-86-58 06:46:00 Test Item Value Reference Range Interpretation Comments Microcyte (test code = 3+ *NA*(10/14/13 1:46 Microcyte) AM) [facility] CenterAhjjcbcNXFCOUKGUY1396-36-52 06:46:00 Test Item Value Reference Range Interpretation Comments Basophils # (test code 0.1 See_Comment [Aut omated message] The = Basophils #) system which generated this result tra nsmitted reference range : <=0.2. The reference r [place] was not used to int erpret this result as normal/abnormal . [facility] CenterFobwpweTNRYXGTKOT0825-33-41 06:46:00 Test Item Value Reference Range Interpretation Comments Monocytes # (test code 0.6 See_Comment [Aut omated message] The = Monocytes #) system which generated this result tra nsmitted reference range : <=0.8. The reference r [place] was not used to int erpret this result as normal/abnormal . [facility] CenterEbleepjPYLACNJDQB5125-73-41 06:46:00 Test Item Value Reference Range Interpretation Comments Eosinophils (test code = 0.4 See_Comment [A utomated message] The Eosinophils) system which ge nerated this result tra nsmitted reference range : <=4.0. The reference r [place] was not used to int erpret this result as normal/abnormal . [facility] CenterNyplhyrNOPCEIXPQD5427-33-70 06:46:00 Test Item Value Reference Range Interpretation Comments Lymphocytes # (test code = Lymphocytes 2.3 1.0-5.5 #) [facility] CenterOrcpkvbYIQNMNHDRX5258-92-83 06:46:00 Test Item Value Reference Range Interpretation Comments Monocytes (test code = Monocytes) 7.8 2.0-12.0 [facility] CenterZgboydjHKDOJSDWLA1974-33-53 06:46:00 Test Item Value Reference Range Interpretation Comments Platelet (test code = Platelet) 187 133-450 [facility] CenterBgqljddBUBTIMJNDM9486-90-27 06:46:00 Test Item Value Reference Range Interpretation Comments RDW (test code = RDW) 19.5 11.5-14.5 [facility] CenterZqzzzbzCWJQJRXVLY4251-54-85 06:46:00 Test Item Value Reference Range Interpretation Comments WBC (test code = WBC) 7.3 3.7-10.4 [facility] CenterHrrcpolKECBJNOBAL5068-19-12 06:46:00 Test Item Value Reference Range Interpretation Comments RBC (test code = RBC) 3.89 4.20-5.40 [facility] CenterWmrqaieKLXKBZDSZE8296-17-36 06:46:00 Test Item Value Reference Range Interpretation Comments MCV (test code = MCV) 62.5 81.0-99.0 [facility] CenterWqbkdyaPEUIDBEEAN5644-32-05 06:46:00 Test Item Value Reference Range Interpretation Comments MCH (test code = MCH) 19.2 pg 27.0-31.0 [facility] CenterZwghhgiWZPTCSDZLV8174-05-12 06:46:00 Test Item Value Reference Range Interpretation Comments MCHC (test code = MCHC) 30.8 32.0-36.0 [facility]KckwfjpZBPUXPVHAH2747-42-49 06:46:00 Test Item Value Reference Range Interpretation Comments MPV (test code = MPV) 9.2 7.4-10.4 [facility]2014-07-25 06:46:00 Test Item Value Reference Range Interpretation Comments Magnesium Lvl (test code = Magnesium 1.8 1.8-2.4 Lvl) [facility]2014-07-25 06:46:00 Test Item Value Reference Range Interpretation Comments Phosphorus (test code = Phosphorus) 3.2 2.5-4.5 [facility]2014-07-25 06:46:00 Test Item Value Reference Range Interpretation Comments eGFR (test code = eGFR) 44 [facility]2014-07-25 06:46:00 Test Item Value Reference Range Interpretation Comments Sodium Lvl (test code = Sodium Lvl) 144 135-145 [facility]2014-07-25 06:46:00 Test Item Value Reference Range Interpretation Comments Potassium Lvl (test code = Potassium 4.0 3.5-5.1 Lvl) [facility]2014-07-25 06:46:00 Test Item Value Reference Range Interpretation Comments BUN (test code = BUN) 14 7-22 [facility]2014-07-25 06:46:00 Test Item Value Reference Range Interpretation Comments Creatinine Lvl (test code = Creatinine 1.3 0.5-1.4 Lvl) [facility]2014-07-25 06:46:00 Test Item Value Reference Range Interpretation Comments Glucose Lvl (test code = Glucose Lvl) 86 70-99 [facility]2014-07-25 06:46:00 Test Item Value Reference Range Interpretation Comments Calcium Lvl (test code = Calcium Lvl) 8.4 8.5-10.5 [facility]2014-07-25 06:46:00 Test Item Value Reference Range Interpretation Comments AGAP (test code = AGAP) 15.0 10.0-20.0 [facility]2014-07-25 06:46:00 Test Item Value Reference Range Interpretation Comments CO2 (test code = CO2) 24 24-32 [facility]2014-07-25 06:46:00 Test Item Value Reference Range Interpretation Comments Chloride Lvl (test code = Chloride Lvl) 109 95-109 [facility]2014-07-25 06:46:00 Test Item Value Reference Range Interpretation Comments Lipase Lvl (test code = Lipase Lvl) 152 73-393 [facility]2014-07-25 06:46:00 Test Item Value Reference Range Interpretation Comments Amylase Lvl (test code = Amylase Lvl) 58 25-115 [facility] CenterGfxjmctXAJWDHMRAT3122-06-43 06:46:00 Test Item Value Reference Range Interpretation Comments Segs (test code = Segs) 59.9 45.0-75.0 [facility] CenterPvxjjyfMPIMFRWQOV0982-59-56 06:46:00 Test Item Value Reference Range Interpretation Comments Lymphocytes (test code = Lymphocytes) 30.8 20.0-40.0 [facility] CenterVakwopuVXRTQYHKQD5393-85-52 06:46:00 Test Item Value Reference Range Interpretation Comments Segs-Bands # (test code = Segs-Bands #) 4.4 1.5-8.1 [facility] CenterAafqoluCIDPQZGHIN1999-14-91 06:46:00 Test Item Value Reference Range Interpretation Comments Basophils (test code = 1.1 See_Comment [Aut omated message] The Basophils) system which ge nerated this result tra nsmitted reference range : <=1.0. The reference r [place] was not used to int erpret this result as normal/abnormal . [facility] CenterHvxeljnITQUOZBFST6085-82-57 06:46:00 Test Item Value Reference Range Interpretation Comments [employer] (test code = 3+ *NA*(10/14/13 1:46 [employer]) AM) [facility]ErqoqtfQJXUTWEDTQ1808-64-60 06:46:00 Test Item Value Reference Range Interpretation Comments Basophils # (test code 0.1 See_Comment [Aut omated message] The = Basophils #) system which generated this result tra nsmitted reference range : <=0.2. The reference r [place] was not used to int erpret this result as normal/abnormal . [facility] CenterNbkxngmPPJETLYSPC9077-24-84 06:46:00 Test Item Value Reference Range Interpretation Comments Monocytes # (test code 0.6 See_Comment [Aut omated message] The = Monocytes #) system which generated this result tra nsmitted reference range : <=0.8. The reference r ge[place] was not used to int erpret this result as normal/abnormal . [facility] CenterUfnyzwnKTVDRQXYFK9242-96-54 06:46:00 Test Item Value Reference Range Interpretation Comments Eosinophils (test code = 0.4 See_Comment [A utomated message] The Eosinophils) system which ge nerated this result tra nsmitted reference range : <=4.0. The reference r [place] was not used to int erpret this result as normal/abnormal . [facility] CenterOvosinnNZPEWXQZCN6366-43-70 06:46:00 Test Item Value Reference Range Interpretation Comments Lymphocytes # (test code = Lymphocytes 2.3 1.0-5.5 #) [facility] CenterHugvzzmBXFAKJYWGK3532-34-31 06:46:00 Test Item Value Reference Range Interpretation Comments Monocytes (test code = Monocytes) 7.8 2.0-12.0 [facility] CenterPwyqmztKIZCGAOGZB0368-36-38 06:46:00 Test Item Value Reference Range Interpretation Comments Platelet (test code = Platelet) 187 133-450 [facility] CenterPgktsajMZVMWNILME0769-08-78 06:46:00 Test Item Value Reference Range Interpretation Comments RDW (test code = RDW) 19.5 11.5-14.5 [facility] CenterQeqpioiUEGNHFOJLB5048-79-94 06:46:00 Test Item Value Reference Range Interpretation Comments WBC (test code = WBC) 7.3 3.7-10.4 [facility] CenterKslgqsqHXPCSCDHRW9873-19-50 06:46:00 Test Item Value Reference Range Interpretation Comments RBC (test code = RBC) 3.89 4.20-5.40 [facility] CenterLkiglgvXUORHDMIOJ5060-85-97 06:46:00 Test Item Value Reference Range Interpretation Comments MCV (test code = MCV) 62.5 81.0-99.0 [facility] CenterGvuwxwjHJRCJDQHOF5264-95-95 06:46:00 Test Item Value Reference Range Interpretation Comments MCH (test code = MCH) 19.2 pg 27.0-31.0 [facility] CenterJgfnrecTRGPHXYKMS9516-02-37 06:46:00 Test Item Value Reference Range Interpretation Comments MCHC (test code = MCHC) 30.8 32.0-36.0 [facility] CenterNjqxnowWRYFAZKRJJ1852-79-63 06:46:00 Test Item Value Reference Range Interpretation Comments MPV (test code = MPV) 9.2 7.4-10.4 [facility] CenterRerpjltSUOURHMJDG7749-89-82 00:00:14 Test Item Value Reference Range Interpretation Comments PTT (test code = PTT) 37.7 s 22.9-35.8 [facility] CenterEqhgikkMTSKSDBDNZ1347-06-68 00:00:14 Test Item Value Reference Range Interpretation Comments PT (test code = PT) 14.4 s 12.0-14.7 [facility] CenterNtqcmcsAPPZUJIVTI3354-09-02 00:00:14 Test Item Value Reference Range Interpretation Comments INR (test code = INR) 1.13 0.85-1.17 [facility] CenterZpkpkxoRFWLUKQAFJ1893-13-89 00:00:14 Test Item Value Reference Range Interpretation Comments PTT (test code = PTT) 37.7 s 22.9-35.8 [facility] CenterUyygffvULTCUUNBLP6223-08-85 00:00:14 Test Item Value Reference Range Interpretation Comments PT (test code = PT) 14.4 s 12.0-14.7 [facility] CenterSvfxfxsIWPBLHYXYW8873-13-83 00:00:14 Test Item Value Reference Range Interpretation Comments INR (test code = INR) 1.13 0.85-1.17 [facility] CenterRsmjadwWDGVMTBKDJ8467-72-69 00:00:14 Test Item Value Reference Range Interpretation Comments PTT (test code = PTT) 37.7 s 22.9-35.8 [facility] CenterUkpusvbBJTQPASNYD9811-95-30 00:00:14 Test Item Value Reference Range Interpretation Comments PT (test code = PT) 14.4 s 12.0-14.7 [facility] CenterFjydhpzVWKSAXDQKP3064-15-52 00:00:14 Test Item Value Reference Range Interpretation Comments INR (test code = INR) 1.13 0.85-1.17 [facility] CenterBjsrfhyDZGYDKDTTR6807-92-89 00:00:14 Test Item Value Reference Range Interpretation Comments PTT (test code = PTT) 37.7 s 22.9-35.8 [facility] CenterZlcgtxrJMKWRDCVNU8505-73-02 00:00:14 Test Item Value Reference Range Interpretation Comments PT (test code = PT) 14.4 s 12.0-14.7 [facility] CenterOrsouysGAITYSHGHB3979-55-58 00:00:14 Test Item Value Reference Range Interpretation Comments INR (test code = INR) 1.13 0.85-1.17 [facility] CenterFmfzmoqZVOGVGPBDG6318-00-59 22:47:17 Test Item Value Reference Range Interpretation Comments Retic Auto (test code = Retic Auto) 1.9 0.5-1.5 [facility] CenterFsivqbcZGSYCJXUQW9594-72-41 22:47:17 Test Item Value Reference Range Interpretation Comments Retic Auto (test code = Retic Auto) 1.9 0.5-1.5 [facility] CenterCcvponmKBOMYJDOHE0268-23-62 22:47:17 Test Item Value Reference Range Interpretation Comments Retic Auto (test code = Retic Auto) 1.9 0.5-1.5 [facility] CenterXqdqnsfFSOZTAJTZW7788-30-24 22:47:17 Test Item Value Reference Range Interpretation Comments Retic Auto (test code = Retic Auto) 1.9 0.5-1.5 [facility]2014-07-24 20:48:00 Test Item Value Reference Range Interpretation Comments TIBC (test code = TIBC) 404 228-428 [facility]2014-07-24 20:48:00 Test Item Value Reference Range Interpretation Comments UIBC (test code = UIBC) 367 110-370 [facility]2014-07-24 20:48:00 Test Item Value Reference Range Interpretation Comments % Satur Fe (test code = % Satur Fe) 9 12-[address] [facility] [id number] 20:48:00 Test Item Value Reference Range Interpretation Comments Iron (test code = Iron) 37 30-[address] [facility] [id number] 20:48:00 Test Item Value Reference Range Interpretation Comments Ferritin Lvl (test code = Ferritin Lvl) 4 5-204 [facility]2014-07-24 20:48:00 Test Item Value Reference Range Interpretation Comments Folate Lvl (test code = Folate Lvl) 12.[address] [facility] [id number] 20:48:00 Test Item Value Reference Range Interpretation Comments Vitamin B12 Lvl (test code = Vitamin [phone] B12 Lvl) [facility] FCZGWIY9973-43-65 20:48:00 Test Item Value Reference Range Interpretation Comments CK MB (test code = CK MB) 3.7 0.5-3.6 [facility] GNDUNWH4866-64-86 20:48:00 Test Item Value Reference Range Interpretation Comments CK MB Index (test 3.5 See_Comment [Automate d message] The code = CK MB Index) [facility] this result transmit ethel reference range : <=2.5. The reference range was not used to interpr et this result as za l/abnormal. [facility] [employer] LGLLPMV6282-98-93 20:48:00 Test Item Value Reference Range Interpretation Comments Troponin-T (test code 0.095 See_Comment [Auto mated message] The = Troponin-T) system which g enerated this result transmit ethel reference range : <=0.100. The reference r [place] was not used to interpr et this result as za l/abnormal. [facility] [employer] OLVHLTU4379-55-68 20:48:00 Test Item Value Reference Range Interpretation Comments Troponin-I (test code 1.20 See_Comment [Auto mated message] The = Troponin-I) system which g enerated this result transmit ethel reference range : <=0.40. The reference r [place] was not used to interpr et this result as za l/abnormal. [facility] [employer] ODDVQYW0673-22-61 20:48:00 Test Item Value Reference Range Interpretation Comments Total CK (test code = Total CK) 107 12-191 [facility] [employer] UNDRO7892-06-15 20:48:00 Test Item Value Reference Range Interpretation Comments Bili Total (test code = Bili Total) 0.6 0.2-1.3 [facility] [employer] TEZOW3354-03-37 20:48:00 Test Item Value Reference Range Interpretation Comments Bili Direct (test code 0.1 See_Comment [Aut omated message] The = Bili Direct) system which generated this result tra nsmitted reference range : <=0.3. The reference r [place] was not used to int erpret this result as za l/abnormal. [facility] [employer] KFWLW0221-02-14 20:48:00 Test Item Value Reference Range Interpretation Comments LDH (test code = LDH) 175 98-192 [facility] MeccdaqWWSSIRYRWK0740-17-77 20:48:00 Test Item Value Reference Range Interpretation Comments Haptoglobin (test code = Haptoglobin) 181 16-200 [facility] VaeelnnIXDDOU2215-19-22 20:48:00 Test Item Value Reference Range Interpretation Comments LDL (Calculated) (test code = LDL 91 (Calculated)) [facility] HospitalPyqjomaPAHPRA7315-63-50 20:48:00 Test Item Value Reference Range Interpretation Comments CHD Risk (test code = CHD Risk) 2.93 3.90-5.80 [facility]icsGlhnximXVPNWW1667-68-35 20:48:00 Test Item Value Reference Range Interpretation Comments HDL (test code = HDL) 56 [facility] ClinicsMohtratVUGURE8856-32-29 20:48:00 Test Item Value Reference Range Interpretation Comments VLDL (test code = VLDL) 17 [facility] HospitalLedhlbqRLBFDU1671-81-24 20:48:00 Test Item Value Reference Range Interpretation Comments Trig (test code = Trig) 84 [facility] HospitalDxlseqzBYLXFV2898-25-78 20:48:00 Test Item Value Reference Range Interpretation Comments Chol (test code = Chol) 164 [facility] HospitalTHYROID WSSYJ3556-81-76 20:48:00 Test Item Value Reference Range Interpretation Comments TSH (test code = TSH) 2.250 0.360-3.740 [facility]2014-07-24 20:48:00 Test Item Value Reference Range Interpretation Comments TIBC (test code = TIBC) 404 228-[address] [facility] HZGCY5905-63-34 20:48:00 Test Item Value Reference Range Interpretation Comments UIBC (test code = UIBC) 367 110-370 [facility]2014-07-24 20:48:00 Test Item Value Reference Range Interpretation Comments % Satur Fe (test code = % Satur Fe) 9 12-57 [facility]2014-07-24 20:48:00 Test Item Value Reference Range Interpretation Comments Iron (test code = Iron) 37 30-[address] [facility] [id number] 20:48:00 Test Item Value Reference Range Interpretation Comments Ferritin Lvl (test code = Ferritin Lvl) 4 5-[address] [facility] [id number] 20:48:00 Test Item Value Reference Range Interpretation Comments Folate Lvl (test code = Folate Lvl) 12.[address] [facility] [id number] 20:48:00 Test Item Value Reference Range Interpretation Comments Vitamin B12 Lvl (test code = Vitamin [phone] B12 Lvl) [facility] HospitalCARDIAC EZWGFTC5738-25-28 20:48:00 Test Item Value Reference Range Interpretation Comments CK MB (test code = CK MB) 3.7 0.5-3.6 [facility] [employer]2014-07-24 20:48:00 Test Item Value Reference Range Interpretation Comments CK MB Index (test 3.5 See_Comment [Automate d message] The code = CK MB Index) [facility] this result transmit ethel reference range : <=2.5. The reference range was not used to interpr et this result as za l/abnormal. [facility] [employer]2014-07-24 20:48:00 Test Item Value Reference Range Interpretation Comments Troponin-T (test code 0.095 See_Comment [Auto mated message] The = Troponin-T) system which g enerated this result transmit ethel reference range : <=0.100. The reference r ge[place] was not used to interpr et this result as za l/abnormal. [facility] [employer]2014-07-24 20:48:00 Test Item Value Reference Range Interpretation Comments Troponin-I (test code 1.20 See_Comment [Auto mated message] The = Troponin-I) system which g enerated this result transmit ethel reference range : <=0.40. The reference r ge[place] was not used to interpr et this result as za l/abnormal. [facility] [employer]2014-07-24 20:48:00 Test Item Value Reference Range Interpretation Comments Total CK (test code = Total CK) 107 12-191 [facility] [employer]2014-07-24 20:48:00 Test Item Value Reference Range Interpretation Comments Bili Total (test code = Bili Total) 0.6 0.2-1.3 [facility] [employer]2014-07-24 20:48:00 Test Item Value Reference Range Interpretation Comments Bili Direct (test code 0.1 See_Comment [Aut omated message] The = Bili Direct) system which generated this result tra nsmitted reference range : <=0.3. The reference r ge[place] was not used to int erpret this result as za l/abnormal. [employer] [id number] 20:48:00 Test Item Value Reference Range Interpretation Comments LDH (test code = LDH) 175 98-192 [facility] QysrmzxTSCBRGPRTI0747-09-74 20:48:00 Test Item Value Reference Range Interpretation Comments Haptoglobin (test code = Haptoglobin) 181 16-200 [facility] HospitalPmwyfrrCWUNGI8938-04-57 20:48:00 Test Item Value Reference Range Interpretation Comments LDL (Calculated) (test code = LDL 91 (Calculated)) [facility]icsPfzhhlzHTEGHX1670-51-63 20:48:00 Test Item Value Reference Range Interpretation Comments CHD Risk (test code = CHD Risk) 2.93 3.90-5.80 [facility]icsRvtycgbTBELMM6208-10-08 20:48:00 Test Item Value Reference Range Interpretation Comments HDL (test code = HDL) 56 [facility]icsCdiebkcBHKVFD4565-96-06 20:48:00 Test Item Value Reference Range Interpretation Comments VLDL (test code = VLDL) 17 [facility]icsFqsrjoaJNVKCA9621-62-70 20:48:00 Test Item Value Reference Range Interpretation Comments Trig (test code = Trig) 84 [facility] ClinicsLnuwvcnXQGTTW5983-87-96 20:48:00 Test Item Value Reference Range Interpretation Comments Chol (test code = Chol) 164 [facility] HospitalTHYROID RRUFV6300-07-91 20:48:00 Test Item Value Reference Range Interpretation Comments TSH (test code = TSH) 2.250 0.360-3.740 [facility]2014-07-24 20:48:00 Test Item Value Reference Range Interpretation Comments TIBC (test code = TIBC) 404 228-428 [facility]2014-07-24 20:48:00 Test Item Value Reference Range Interpretation Comments UIBC (test code = UIBC) 367 110-370 [facility]2014-07-24 20:48:00 Test Item Value Reference Range Interpretation Comments % Satur Fe (test code = % Satur Fe) 9 12-57 [facility]2014-07-24 20:48:00 Test Item Value Reference Range Interpretation Comments Iron (test code = Iron) 37 30-160 [facility]2014-07-24 20:48:00 Test Item Value Reference Range Interpretation Comments Ferritin Lvl (test code = Ferritin Lvl) 4 5-204 [facility]2014-07-24 20:48:00 Test Item Value Reference Range Interpretation Comments Folate Lvl (test code = Folate Lvl) 12.3 [facility]2014-07-24 20:48:00 Test Item Value Reference Range Interpretation Comments Vitamin B12 Lvl (test code = Vitamin 238 281-1348 B12 Lvl) [facility] [employer] ACXNICC7520-04-76 20:48:00 Test Item Value Reference Range Interpretation Comments CK MB (test code = CK MB) 3.7 0.5-3.6 [facility]oke[facility] GWEAARB3730-79-83 20:48:00 Test Item Value Reference Range Interpretation Comments CK MB Index (test 3.5 See_Comment [Automate d message] The code = CK MB Index) [facility] generated this result transmit ethel reference range : <=2.5. The reference range was not used to interpr et this result as za l/abnormal. [facility] [employer]2014-07-24 20:48:00 Test Item Value Reference Range Interpretation Comments Troponin-T (test code 0.095 See_Comment [Auto mated message] The = Troponin-T) system which g enerated this result transmit ethel reference range : <=0.100. The reference r ge[place] was not used to interpr et this result as za l/abnormal. [facility] [employer]2014-07-24 20:48:00 Test Item Value Reference Range Interpretation Comments Troponin-I (test code 1.20 See_Comment [Auto mated message] The = Troponin-I) system which g enerated this result transmit ethel reference range : <=0.40. The reference r ge[place] was not used to interpr et this result as za l/abnormal. [employer]2014-07-24 20:48:00 Test Item Value Reference Range Interpretation Comments Total CK (test code = Total CK) 107 12-191 [facility] [employer] EMMOP6221-09-00 20:48:00 Test Item Value Reference Range Interpretation Comments Bili Total (test code = Bili Total) 0.6 0.2-1.3 [facility] [email or web address] [id number] 20:48:00 Test Item Value Reference Range Interpretation Comments Bili Direct (test code 0.1 See_Comment [Aut omated message] The = Bili Direct) system which generated this result tra nsmitted reference range : <=0.3. The reference r ge[place] was not used to int erpret this result as za l/abnormal. [employer]2014-07-24 20:48:00 Test Item Value Reference Range Interpretation Comments LDH (test code = LDH) 175 98-192 [facility] HospitalSliglrhLOWXSQDBJP0003-20-73 20:48:00 Test Item Value Reference Range Interpretation Comments Haptoglobin (test code = Haptoglobin) 181 16-200 [facility] HospitalMaeldboYXNIYM7137-59-46 20:48:00 Test Item Value Reference Range Interpretation Comments LDL (Calculated) (test code = LDL 91 (Calculated)) [facility] HospitalRpkwokoOYCSBA7876-30-58 20:48:00 Test Item Value Reference Range Interpretation Comments CHD Risk (test code = CHD Risk) 2.93 3.90-5.80 [facility]icsXihhsezLRMJFC6747-96-44 20:48:00 Test Item Value Reference Range Interpretation Comments HDL (test code = HDL) 56 [facility] ClinicsRlcuyqnGGHQVS8242-76-89 20:48:00 Test Item Value Reference Range Interpretation Comments VLDL (test code = VLDL) 17 [facility] ClinicsKweniecJDTVIZ3741-00-30 20:48:00 Test Item Value Reference Range Interpretation Comments Trig (test code = Trig) 84 [facility] ClinicsWropexsEZOKDS8917-26-27 20:48:00 Test Item Value Reference Range Interpretation Comments Chol (test code = Chol) 164 [facility] HospitalTHYROID [id number] 20:48:00 Test Item Value Reference Range Interpretation Comments TSH (test code = TSH) 2.250 0.360-3.740 [facility]2014-07-24 20:48:00 Test Item Value Reference Range Interpretation Comments TIBC (test code = TIBC) 404 228-428 [facility]2014-07-24 20:48:00 Test Item Value Reference Range Interpretation Comments UIBC (test code = UIBC) 367 110-370 [facility]2014-07-24 20:48:00 Test Item Value Reference Range Interpretation Comments % Satur Fe (test code = % Satur Fe) 9 12-[address] [facility] [id number] 20:48:00 Test Item Value Reference Range Interpretation Comments Iron (test code = Iron) 37 30-160 [facility]2014-07-24 20:48:00 Test Item Value Reference Range Interpretation Comments Ferritin Lvl (test code = Ferritin Lvl) 4 5-[address] [facility] EOUYB6112-73-26 20:48:00 Test Item Value Reference Range Interpretation Comments Folate Lvl (test code = Folate Lvl) 12.[address] [facility] [id number] 20:48:00 Test Item Value Reference Range Interpretation Comments Vitamin B12 Lvl (test code = Vitamin [phone] B12 Lvl) [facility] HospitalOneShieldU[facility] [id number] 20:48:00 Test Item Value Reference Range Interpretation Comments CK MB (test code = CK MB) 3.7 0.5-3.6 [facility] [id number] 20:48:00 Test Item Value Reference Range Interpretation Comments CK MB Index (test 3.5 See_Comment [Automate d message] The code = CK MB Index) [facility] this result transmit ethel reference range : <=2.5. The reference range was not used to interpr et this result as za l/abnormal. [facility] HospitalOneShieldUO[facility] [id number] 20:48:00 Test Item Value Reference Range Interpretation Comments Troponin-T (test code 0.095 See_Comment [Auto mated message] The = Troponin-T) system which g enerated this result transmit ethel reference range : <=0.100. The reference r [place] was not used to interpr et this result as za l/abnormal. [facility] HospitalBokecc [id number] 20:48:00 Test Item Value Reference Range Interpretation Comments Troponin-I (test code 1.20 See_Comment [Auto mated message] The = Troponin-I) system which g enerated this result transmit ethel reference range : <=0.40. The reference r [place] was not used to interpr et this result as za l/abnormal. [facility] [employer] 20:48:00 Test Item Value Reference Range Interpretation Comments Total CK (test code = Total CK) 107 12-191 [facility] [email or web address] [id number] 20:48:00 Test Item Value Reference Range Interpretation Comments Bili Total (test code = Bili Total) 0.6 0.2-1.3 [facility] [employer]2014-07-24 20:48:00 Test Item Value Reference Range Interpretation Comments Bili Direct (test code 0.1 See_Comment [Aut omated message] The = Bili Direct) system which generated this result tra nsmitted reference range : <=0.3. The reference r [place] was not used to int erpret this result as za l/abnormal. [facility] HospitalCHEM [id number] 20:48:00 Test Item Value Reference Range Interpretation Comments LDH (test code = LDH) 175 98-192 [facility] HospitalHuksxuuMECQYVMHDM7854-57-05 20:48:00 Test Item Value Reference Range Interpretation Comments Haptoglobin (test code = Haptoglobin) 181 16-200 [facility] HospitalGlzungtGBIGQJ8042-21-99 20:48:00 Test Item Value Reference Range Interpretation Comments LDL (Calculated) (test code = LDL 91 (Calculated)) [facility] HospitalEtpryyiRGDBMI7858-26-01 20:48:00 Test Item Value Reference Range Interpretation Comments CHD Risk (test code = CHD Risk) 2.93 3.90-5.80 [facility] ClinicsUmfzipjLZJKVA1844-72-84 20:48:00 Test Item Value Reference Range Interpretation Comments HDL (test code = HDL) 56 [facility] HospitalLsysnwjEBRQJV6728-85-75 20:48:00 Test Item Value Reference Range Interpretation Comments VLDL (test code = VLDL) 17 [facility] HospitalBipgrxoVYDQFC7078-16-54 20:48:00 Test Item Value Reference Range Interpretation Comments Trig (test code = Trig) 84 [facility] HospitalSxehrzhHUNIAL1633-29-65 20:48:00 Test Item Value Reference Range Interpretation Comments Chol (test code = Chol) 164 [facility] HospitalTHYROID [id number] 20:48:00 Test Item Value Reference Range Interpretation Comments TSH (test code = TSH) 2.250 0.360-3.740 [facility] HospitalTkoygwdSGLRTTUCHD7253-50-92 20:15:22 Test Item Value Reference Range Interpretation Comments [employer] (test code = 3+ *NA*(10/13/13 3:15 Microcyte) PM) [id number] 20:15:22 Test Item Value Reference Range Interpretation Comments Microcyte (test code = 3+ *NA*(10/13/13 3:15 Microcyte) PM) [facility] HospitalVtkslfuXVCXLFGJJI3416-25-72 20:15:22 Test Item Value Reference Range Interpretation Comments Microcyte (test code = 3+ *NA*(10/13/13 3:15 Microcyte) PM) [facility]GrlfftjXWYOPCXFIS8119-26-81 20:15:22 Test Item Value Reference Range Interpretation Comments Microcyte (test code = 3+ *NA*(10/13/13 3:15 Microcyte) PM) [facility] CenterEhopfckDXYBCQNNOJ6589-94-03 15:40:47 Test Item Value Reference Range Interpretation Comments PT (test code = PT) 13.9 s 12.0-14.7 [facility] CenterPwpujmqLOLDOKAKPU3622-06-37 15:40:47 Test Item Value Reference Range Interpretation Comments INR (test code = INR) 1.08 0.85-1.17 [facility] CenterTpnxdnlRQERHMADIK9584-39-18 15:40:47 Test Item Value Reference Range Interpretation Comments PTT (test code = PTT) 27.1 s 22.9-35.8 [facility] CenterZdxdirjEJZMNBFSQI3780-14-23 15:40:47 Test Item Value Reference Range Interpretation Comments Hypochrom (test code = Slight (10/13/13 10:40 Hypochrom) AM) [facility] CenterBooqsmxCJOPEFYDEF0981-56-21 15:40:47 Test Item Value Reference Range Interpretation Comments Polychrom (test code = Slight (10/13/13 10:40 Polychrom) AM) [facility] CenterMyfwqhkDIJNIYCTCZ8642-73-78 15:40:47 Test Item Value Reference Range Interpretation Comments Elliptocyte (test code = Slight *ABN*(10/13/13 Elliptocyte) 10:40 AM) [facility] CenterOjcpmzwPPFMRMZBTY4770-06-74 15:40:47 Test Item Value Reference Range Interpretation Comments Anisocyte (test code = 1+ *ABN*(10/13/13 Anisocyte) 10:40 AM) [facility] CenterAyryyjvPHWVFJRDIS7989-33-96 15:40:47 Test Item Value Reference Range Interpretation Comments Eosinophils # (test code 0.0 See_Comment [A utomated message] The = Eosinophils #) system whic h generated this result tra nsmitted reference range : <=0.5. The reference r [place] was not used to int erpret this result as normal/abnormal . [facility] CenterMvmyfgzRCGLJBXIFK7503-29-40 15:40:47 Test Item Value Reference Range Interpretation Comments PT (test code = PT) 13.9 s 12.0-14.7 [facility] CenterMndvrzoZGXSDTYRHA7525-44-15 15:40:47 Test Item Value Reference Range Interpretation Comments INR (test code = INR) 1.08 0.85-1.17 [facility] CenterSvztwwqMOUPBHIPOV6420-14-15 15:40:47 Test Item Value Reference Range Interpretation Comments PTT (test code = PTT) 27.1 s 22.9-35.8 [facility] CenterKakctzvTXIFUTNAJQ3648-17-93 15:40:47 Test Item Value Reference Range Interpretation Comments Hypochrom (test code = Slight (10/13/13 10:40 Hypochrom) AM) [facility] CenterNpjdyjhZGRPDZZUFI8091-15-12 15:40:47 Test Item Value Reference Range Interpretation Comments Polychrom (test code = Slight (10/13/13 10:40 Polychrom) AM) [facility] CenterCvrbqpuIPBPDEDTRQ7006-22-40 15:40:47 Test Item Value Reference Range Interpretation Comments Elliptocyte (test code = Slight *ABN*(10/13/13 Elliptocyte) 10:40 AM) [facility] CenterCleelvnPBASWIPQSM1923-92-21 15:40:47 Test Item Value Reference Range Interpretation Comments Anisocyte (test code = 1+ *ABN*(10/13/13 Anisocyte) 10:40 AM) [facility] CenterUdkblsqENHOHUYOKU4029-79-76 15:40:47 Test Item Value Reference Range Interpretation Comments Eosinophils # (test code 0.0 See_Comment [A utomated message] The = Eosinophils #) system ic h generated this result tra nsmitted reference range : <=0.5. The reference r [place] was not used to int erpret this result as normal/abnormal . [facility] CenterUhcvnkxCQPOAFZKOR2233-34-41 15:40:47 Test Item Value Reference Range Interpretation Comments PT (test code = PT) 13.9 s 12.0-14.7 [facility] CenterWeeshalMNZRNNBFTW8477-05-61 15:40:47 Test Item Value Reference Range Interpretation Comments INR (test code = INR) 1.08 0.85-1.17 [facility] CenterRwyhrttWYJNWZECLG6183-26-44 15:40:47 Test Item Value Reference Range Interpretation Comments PTT (test code = PTT) 27.1 s 22.9-35.8 [facility] CenterYpinmhpRJADVNBYWK2409-84-61 15:40:47 Test Item Value Reference Range Interpretation Comments Hypochrom (test code = Slight (10/13/13 10:40 Hypochrom) AM) [facility] CenterQmcavifVVUUEPOHNU1747-59-56 15:40:47 Test Item Value Reference Range Interpretation Comments Polychrom (test code = Slight (10/13/13 10:40 Polychrom) AM) [facility] CenterLwzbirsTTSKHVDARD5545-84-61 15:40:47 Test Item Value Reference Range Interpretation Comments Elliptocyte (test code = Slight *ABN*(10/13/13 Elliptocyte) 10:40 AM) [facility] CenterUczezudRVHYQTYBVP4815-48-08 15:40:47 Test Item Value Reference Range Interpretation Comments Anisocyte (test code = 1+ *ABN*(10/13/13 Anisocyte) 10:40 AM) [facility] CenterLyqpwifZLHPXDOFZE8687-11-31 15:40:47 Test Item Value Reference Range Interpretation Comments Eosinophils # (test code 0.0 See_Comment [A utomated message] The = Eosinophils #) system [employer] generated this result tra nsmitted reference range : <=0.5. The reference r ge[place] was not used to int erpret this result as normal/abnormal . [facility] CenterYcsxnwsMVCGOSEYVX2074-21-61 15:40:47 Test Item Value Reference Range Interpretation Comments PT (test code = PT) 13.9 s 12.0-14.7 [facility] CenterIvfvphmZBCPIEQLCH6871-76-22 15:40:47 Test Item Value Reference Range Interpretation Comments INR (test code = INR) 1.08 0.85-1.17 [facility] CenterWtwcqfpXCNIFPPURU2243-17-99 15:40:47 Test Item Value Reference Range Interpretation Comments PTT (test code = PTT) 27.1 s 22.9-35.8 [facility] CenterLufziptOASFHNKEHZ8030-16-09 15:40:47 Test Item Value Reference Range Interpretation Comments Hypochrom (test code = Slight (10/13/13 10:40 Hypochrom) AM) [facility] CenterIkjhgtlYEPUDFETER6897-85-55 15:40:47 Test Item Value Reference Range Interpretation Comments Polychrom (test code = Slight (10/13/13 10:40 Polychrom) AM) [facility] CenterIamgvdvKOVZGYMUQW9691-93-82 15:40:47 Test Item Value Reference Range Interpretation Comments Elliptocyte (test code = Slight *ABN*(10/13/13 Elliptocyte) 10:40 AM) [facility] CenterFnvoomtYTYSQGARXX1169-15-52 15:40:47 Test Item Value Reference Range Interpretation Comments Anisocyte (test code = 1+ *ABN*(10/13/13 Anisocyte) 10:40 AM) [facility] CenterBxamggtUCLDERPUQC8264-69-62 15:40:47 Test Item Value Reference Range Interpretation Comments Eosinophils # (test code 0.0 See_Comment [A utomated message] The = Eosinophils #) system ic h generated this result tra nsmitted reference range : <=0.5. The reference r ge[place] was not used to int erpret this result as normal/abnormal . [facility] [id number] 15:40:03 Test Item Value Reference Range Interpretation Comments Troponin-T (test code 0.129 See_Comment [Auto mated message] The = Troponin-T) system which g enerated this result transmit ethel reference range : <=0.100. The reference r ge[place] was not used to interpr et this result as za l/abnormal. [facility] QDLEOII2468-10-19 15:40:03 Test Item Value Reference Range Interpretation Comments Troponin-T (test code 0.129 See_Comment [Auto mated message] The = Troponin-T) system which g enerated this result transmit ethel reference range : <=0.100. The reference r ge[place] was not used to interpr et this result as za l/abnormal. [facility] OKWAFZQ7832-20-11 15:40:03 Test Item Value Reference Range Interpretation Comments Troponin-T (test code 0.129 See_Comment [Auto mated message] The = Troponin-T) system which g enerated this result transmit ethel reference range : <=0.100. The reference r ge[place] was not used to interpr et this result as za l/abnormal. [facility] [id number] 15:40:03 Test Item Value Reference Range Interpretation Comments Troponin-T (test code 0.129 See_Comment [Auto mated message] The = Troponin-T) system which g enerated this result transmit ethel reference range : <=0.100. The reference r ge[place] was not used to interpr et this result as za l/abnormal. [facility] [id number] 15:40:02 Test Item Value Reference Range Interpretation Comments Total CK (test code = Total CK) 98 12-191 [facility] stickappsannCARDIAC MXQZFUZ8410-56-94 15:40:02 Test Item Value Reference Range Interpretation Comments CK MB (test code = CK MB) 4.3 0.5-3.6 [facility] XOQFEJH5665-63-10 15:40:02 Test Item Value Reference Range Interpretation Comments CK-MB INDEX (test 4.4 See_Comment [Automate d message] The code = CK-MB INDEX) system w [employer] generated this result transmit ethel reference range : <=2.5. The reference range was not used to interpr et this result as za l/abnormal. [facility] [employer]ial[employer]CARM[employer]AC [id number] 15:40:02 Test Item Value Reference Range Interpretation Comments Troponin-I (test code 1.71 See_Comment [Auto mated message] The = Troponin-I) system which g enerated this result transmit ethel reference range : <=0.40. The reference r ge[place] was not used to interpr et this result as za l/abnormal. [facility] [employer] HIHXUFV4792-82-83 15:40:02 Test Item Value Reference Range Interpretation Comments Total CK (test code = Total CK) 98 12-191 [facility] [employer]CARM[employer]AC [id number] 15:40:02 Test Item Value Reference Range Interpretation Comments CK MB (test code = CK MB) 4.3 0.5-3.6 [facility] stickappsannCARDIAC QJYNBZY9815-66-27 15:40:02 Test Item Value Reference Range Interpretation Comments CK-MB INDEX (test 4.4 See_Comment [Automate d message] The code = CK-MB INDEX) system w [employer] generated this result transmit ethel reference range : <=2.5. The reference range was not used to interpr et this result as za l/abnormal. [facility] [employer] IWHTUYG9837-77-14 15:40:02 Test Item Value Reference Range Interpretation Comments Troponin-I (test code 1.71 See_Comment [Auto mated message] The = Troponin-I) system which g enerated this result transmit ethel reference range : <=0.40. The reference r ge[place] was not used to interpr et this result as za l/abnormal. [employer] IncannCARDIAC [id number] 15:40:02 Test Item Value Reference Range Interpretation Comments Total CK (test code = Total CK) 98 12-191 [facility] stickappsannCARDIAC MMDJKYB4935-11-26 15:40:02 Test Item Value Reference Range Interpretation Comments CK MB (test code = CK MB) 4.3 0.5-3.6 [facility] HermannCARDIAC [id number] 15:40:02 Test Item Value Reference Range Interpretation Comments CK-MB INDEX (test 4.4 See_Comment [Automate d message] The code = CK-MB INDEX) system w [employer] generated this result transmit ethel reference range : <=2.5. The reference range was not used to interpr et this result as za l/abnormal. [facility] stickappsannCARDIAC [id number] 15:40:02 Test Item Value Reference Range Interpretation Comments Troponin-I (test code 1.71 See_Comment [Auto mated message] The = Troponin-I) system which g enerated this result transmit ethel reference range : <=0.40. The reference r ge[place] was not used to interpr et this result as za l/abnormal. [facility] stickappsannCARDIAC [id number] 15:40:02 Test Item Value Reference Range Interpretation Comments Total CK (test code = Total CK) 98 12-191 [facility] [id number] 15:40:02 Test Item Value Reference Range Interpretation Comments CK MB (test code = CK MB) 4.3 0.5-3.6 [facility] HermannCARDIAC [id number] 15:40:02 Test Item Value Reference Range Interpretation Comments CK-MB INDEX (test 4.4 See_Comment [Automate d message] The code = CK-MB INDEX) system w [employer] generated this result transmit ethel reference range : <=2.5. The reference range was not used to interpr et this result as za l/abnormal. [facility] [id number] 15:40:02 Test Item Value Reference Range Interpretation Comments Troponin-I (test code 1.71 See_Comment [Auto mated message] The = Troponin-I) system which g enerated this result transmit ethel reference range : <=0.40. The reference r ge[place] was not used to interpr et this result as za l/abnormal. [facility] [id number] 08:34:00 Test Item Value Reference Range Interpretation Comments Antibody Scrn (test Negative (10/13/13 3:34 code = Antibody Scrn) AM) [facility] [id number] 08:34:00 Test Item Value Reference Range Interpretation Comments ABO/Rh (test code = ABO/Rh) O NEG [facility]Want[facility] B[facility] [id number] 08:34:00 Test Item Value Reference Range Interpretation Comments RBC product (test code Product available = RBC product) (10/13/13 3:34 AM) [facility] HospitalCARD[facility] [id number] 08:34:00 Test Item Value Reference Range Interpretation Comments Troponin-I (test code 1.16 See_Comment [Auto mated message] The = Troponin-I) system which g enerated this result transmit ethel reference range : <=0.40. The reference r ge[place] was not used to interpr et this result as za l/abnormal. [facility] [employer] [id number] 08:34:00 Test Item Value Reference Range Interpretation Comments Lactic Acid Lvl (test code = Lactic 0.9 0.5-2.2 Acid Lvl) [facility] [employer] [id number] 08:34:00 Test Item Value Reference Range Interpretation Comments Albumin Lvl (test code = Albumin Lvl) 3.9 3.5-5.0 [facility] [employer] [id number] 08:34:00 Test Item Value Reference Range Interpretation Comments Total Protein (test code = Total 7.9 6.4-8.4 Protein) [facility] [employer] [id number] 08:34:00 Test Item Value Reference Range Interpretation Comments ALT (test code = ALT) 19 See_Comment [Auto mated message] The system which ge nerated this result transmit ethel reference range : <=65. The reference range was not used to interpr et this result as za l/abnormal. [facility] [employer] [id number] 08:34:00 Test Item Value Reference Range Interpretation Comments AST (test code = AST) 22 See_Comment [Auto mated message] The system which ge nerated this result transmit ethel reference range : <=37. The reference range was not used to interpr et this result as za l/abnormal. [facility] [id number] 08:34:00 Test Item Value Reference Range Interpretation Comments Bili Total (test code = Bili Total) 0.6 0.2-1.3 [facility]2014-07-24 08:34:00 Test Item Value Reference Range Interpretation Comments Alk Phos (test code = Alk Phos) 68 39-136 [facility] [id number] 08:34:00 Test Item Value Reference Range Interpretation Comments A/G Ratio (test code = A/G Ratio) 1.0 0.7-1.6 [facility] [id number] 08:34:00 Test Item Value Reference Range Interpretation Comments Globulin (test code = Globulin) 4.0 2.0-4.0 [facility]2014-07-24 08:34:00 Test Item Value Reference Range Interpretation Comments B/C Ratio (test code = B/C Ratio) 11 6-25 [facility] CenterHozezcvORWQMJIPWU7917-05-63 08:34:00 Test Item Value Reference Range Interpretation Comments Elliptocyte (test code = Slight *ABN*(10/13/13 Elliptocyte) 3:34 AM) [facility] CenterOptiusgOQZUVGILEZ6221-17-20 08:34:00 Test Item Value Reference Range Interpretation Comments Hypochrom (test code = Slight (10/13/13 3:34 Hypochrom) AM) [facility] CenterFmjxrnpZWBPZUKVLW0991-58-86 08:34:00 Test Item Value Reference Range Interpretation Comments Target Cell (test code Slight *ABN*(10/13/13 = Target Cell) 3:34 AM) [facility] CenterRkfoyxlVHACGMCTMH0308-79-37 08:34:00 Test Item Value Reference Range Interpretation Comments RBC Morph (test code = See Note (10/13/13 3:34 RBC Morph) AM) [facility] CenterCveqdakMHNRNMZOMR4602-82-12 08:34:00 Test Item Value Reference Range Interpretation Comments Plt Morph (test code = Normal (10/13/13 3:34 Plt Morph) AM) [facility] [id number] 08:34:00 Test Item Value Reference Range Interpretation Comments Antibody Scrn (test Negative (10/13/13 3:34 code = Antibody Scrn) AM) [facility] [employer] [id number] 08:34:00 Test Item Value Reference Range Interpretation Comments ABO/Rh (test code = ABO/Rh) O NEG [facility] [id number] 08:34:00 Test Item Value Reference Range Interpretation Comments RBC product (test code Product available = RBC product) (10/13/13 3:34 AM) [facility] [employer]CARDIAC [id number] 08:34:00 Test Item Value Reference Range Interpretation Comments Troponin-I (test code 1.16 See_Comment [Auto mated message] The = Troponin-I) system which g enerated this result transmit ethle reference range : <=0.40. The reference r ge[place] was not used to interpr et this result as za l/abnormal. [facility] [employer] [id number] 08:34:00 Test Item Value Reference Range Interpretation Comments Lactic Acid Lvl (test code = Lactic 0.9 0.5-2.2 Acid Lvl) [facility] [employer] [id number] 08:34:00 Test Item Value Reference Range Interpretation Comments Albumin Lvl (test code = Albumin Lvl) 3.9 3.5-5.0 [facility] [employer] [id number] 08:34:00 Test Item Value Reference Range Interpretation Comments Total Protein (test code = Total 7.9 6.4-8.4 Protein) [facility] [employer] [id number] 08:34:00 Test Item Value Reference Range Interpretation Comments ALT (test code = ALT) 19 See_Comment [Auto mated message] The system which ge nerated this result transmit ethel reference range : <=65. The reference range was not used to interpr et this result as za l/abnormal. [facility] [employer] [id number] 08:34:00 Test Item Value Reference Range Interpretation Comments AST (test code = AST) 22 See_Comment [Auto mated message] The system which ge nerated this result transmit ethel reference range : <=37. The reference range was not used to interpr et this result as za l/abnormal. [facility] [employer] [id number] 08:34:00 Test Item Value Reference Range Interpretation Comments Bili Total (test code = Bili Total) 0.6 0.2-1.3 [facility] Auto [id number] 08:34:00 Test Item Value Reference Range Interpretation Comments Alk Phos (test code = Alk Phos) 68 39-136 [facility] [id number] 08:34:00 Test Item Value Reference Range Interpretation Comments A/G Ratio (test code = A/G Ratio) 1.0 0.7-1.6 [facility] [id number] 08:34:00 Test Item Value Reference Range Interpretation Comments Globulin (test code = Globulin) 4.0 2.0-4.0 [facility]51 Auto [id number] 08:34:00 Test Item Value Reference Range Interpretation Comments B/C Ratio (test code = B/C Ratio) 11 6-25 [facility] [id number] 08:34:00 Test Item Value Reference Range Interpretation Comments Elliptocyte (test code = Slight *ABN*(10/13/13 Elliptocyte) 3:34 AM) [facility] [id number] 08:34:00 Test Item Value Reference Range Interpretation Comments Hypochrom (test code = Slight (10/13/13 3:34 Hypochrom) AM) [facility] CenterVfjgwlzJIIQUPORJK0364-09-79 08:34:00 Test Item Value Reference Range Interpretation Comments Target Cell (test code Slight *ABN*(10/13/13 = Target Cell) 3:34 AM) [facility] CenterKvedvuxQAUCZZJUII1082-71-85 08:34:00 Test Item Value Reference Range Interpretation Comments RBC Morph (test code = See Note (10/13/13 3:34 RBC Morph) AM) [facility] CenterUwcpvjpQFJLQGPTZF7854-70-38 08:34:00 Test Item Value Reference Range Interpretation Comments Plt Morph (test code = Normal (10/13/13 3:34 Plt Morph) AM) [facility] [id number] 08:34:00 Test Item Value Reference Range Interpretation Comments Antibody Scrn (test Negative (10/13/13 3:34 code = Antibody Scrn) AM) [facility] [employer] BANK [id number] 08:34:00 Test Item Value Reference Range Interpretation Comments ABO/Rh (test code = ABO/Rh) O NEG [facility] [employer] BANK [id number] 08:34:00 Test Item Value Reference Range Interpretation Comments RBC product (test code Product available = RBC product) (10/13/13 3:34 AM) [facility] [employer]CARD[employer]AC [id number] 08:34:00 Test Item Value Reference Range Interpretation Comments Troponin-I (test code 1.16 See_Comment [Auto mated message] The = Troponin-I) system which g enerated this result transmit ethel reference range : <=0.40. The reference r [place] was not used to interpr et this result as za l/abnormal. [facility] [employer] [id number] 08:34:00 Test Item Value Reference Range Interpretation Comments Lactic Acid Lvl (test code = Lactic 0.9 0.5-2.2 Acid Lvl) [facility]51 Auto [id number] 08:34:00 Test Item Value Reference Range Interpretation Comments Albumin Lvl (test code = Albumin Lvl) 3.9 3.5-5.0 [facility] [employer] [id number] 08:34:00 Test Item Value Reference Range Interpretation Comments Total Protein (test code = Total 7.9 6.4-8.4 Protein) [facility]51 Auto [id number] 08:34:00 Test Item Value Reference Range Interpretation Comments ALT (test code = ALT) 19 See_Comment [Auto mated message] The system which ge nerated this result transmit ethel reference range : <=65. The reference range was not used to interpr et this result as za l/abnormal. [facility] [employer] [id number] 08:34:00 Test Item Value Reference Range Interpretation Comments AST (test code = AST) 22 See_Comment [Auto mated message] The system which ge nerated this result transmit ethel reference range : <=37. The reference range was not used to interpr et this result as za l/abnormal. [facility] [employer] [id number] 08:34:00 Test Item Value Reference Range Interpretation Comments Bili Total (test code = Bili Total) 0.6 0.2-1.3 [facility] [employer] [id number] 08:34:00 Test Item Value Reference Range Interpretation Comments Alk Phos (test code = Alk Phos) 68 39-136 [facility] [employer] [id number] 08:34:00 Test Item Value Reference Range Interpretation Comments A/G Ratio (test code = A/G Ratio) 1.0 0.7-1.6 [facility]CHE[facility] [id number] 08:34:00 Test Item Value Reference Range Interpretation Comments Globulin (test code = Globulin) 4.0 2.0-4.0 [facility] HospitalCHEM [id number] 08:34:00 Test Item Value Reference Range Interpretation Comments B/C Ratio (test code = B/C Ratio) 11 -25 [facility] H[id number] 08:34:00 Test Item Value Reference Range Interpretation Comments Elliptocyte (test code = Slight *ABN*(10/13/13 Elliptocyte) 3:34 AM) [facility] H[id number] 08:34:00 Test Item Value Reference Range Interpretation Comments Hypochrom (test code = Slight (10/13/13 3:34 Hypochrom) AM) [id number] 08:34:00 Test Item Value Reference Range Interpretation Comments Target Cell (test code Slight *ABN*(10/13/13 = Target Cell) 3:34 AM) [facility] H[id number] 08:34:00 Test Item Value Reference Range Interpretation Comments RBC Morph (test code = See Note (10/13/13 3:34 RBC Morph) AM) [facility] H[id number] 08:34:00 Test Item Value Reference Range Interpretation Comments Plt Morph (test code = Normal (10/13/13 3:34 Plt Morph) AM) [facility] HospitalTaskdoerOOD BANK [id number] 08:34:00 Test Item Value Reference Range Interpretation Comments Antibody Scrn (test Negative (10/13/13 3:34 code = Antibody Scrn) AM) [facility] [id number] 08:34:00 Test Item Value Reference Range Interpretation Comments ABO/Rh (test code = ABO/Rh) O NEG [facility] [id number] 08:34:00 Test Item Value Reference Range Interpretation Comments RBC product (test code Product available = RBC product) (10/13/13 3:34 AM) [facility] HospitalCARDIAC [id number] 08:34:00 Test Item Value Reference Range Interpretation Comments Troponin-I (test code 1.16 See_Comment [Auto mated message] The = Troponin-I) system which g enerated this result transmit ethel reference range : <=0.40. The reference r ge[place] was not used to interpr et this result as za l/abnormal. [facility]2014-07-24 08:34:00 Test Item Value Reference Range Interpretation Comments Lactic Acid Lvl (test code = Lactic 0.9 0.5-2.2 Acid Lvl) [facility]2014-07-24 08:34:00 Test Item Value Reference Range Interpretation Comments Albumin Lvl (test code = Albumin Lvl) 3.9 3.5-5.0 [facility]2014-07-24 08:34:00 Test Item Value Reference Range Interpretation Comments Total Protein (test code = Total 7.9 6.4-8.4 Protein) [facility]2014-07-24 08:34:00 Test Item Value Reference Range Interpretation Comments ALT (test code = ALT) 19 See_Comment [Auto mated message] The system which ge nerated this result transmit ethel reference range : <=65. The reference range was not used to interpr et this result as za l/abnormal. [facility]2014-07-24 08:34:00 Test Item Value Reference Range Interpretation Comments AST (test code = AST) 22 See_Comment [Auto mated message] The system which ge nerated this result transmit ethel reference range : <=37. The reference range was not used to interpr et this result as za l/abnormal. [facility]2014-07-24 08:34:00 Test Item Value Reference Range Interpretation Comments Bili Total (test code = Bili Total) 0.6 0.2-1.3 [facility]2014-07-24 08:34:00 Test Item Value Reference Range Interpretation Comments Alk Phos (test code = Alk Phos) 68 39-136 [facility]2014-07-24 08:34:00 Test Item Value Reference Range Interpretation Comments A/G Ratio (test code = A/G Ratio) 1.0 0.7-1.6 [place] [id number] 08:34:00 Test Item Value Reference Range Interpretation Comments Globulin (test code = Globulin) 4.0 2.0-4.0 [facility] HospitalCHEM [id number] 08:34:00 Test Item Value Reference Range Interpretation Comments B/C Ratio (test code = B/C Ratio) 11 - [facility] [id number] 08:34:00 Test Item Value Reference Range Interpretation Comments Elliptocyte (test code = Slight *ABN*(10/13/13 Elliptocyte) 3:34 AM) [id number] 08:34:00 Test Item Value Reference Range Interpretation Comments Hypochrom (test code = Slight (10/13/13 3:34 Hypochrom) AM) [facility] [id number] 08:34:00 Test Item Value Reference Range Interpretation Comments Target Cell (test code Slight *ABN*(10/13/13 = Target Cell) 3:34 AM) [facility] [id number] 08:34:00 Test Item Value Reference Range Interpretation Comments RBC Morph (test code = See Note (10/13/13 3:34 RBC Morph) AM) [facility] [id number] 08:34:00 Test Item Value Reference Range Interpretation Comments Plt Morph (test code = Normal (10/13/13 3:34 Plt Morph) AM) [facility] Notes Date/Time Note Provider Source 2022-11-05 Formatting of this note might be differe nt from the original. 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 - CT thorax/abd/pelvis - RTC 1 year The patient was educated on present condition and advised to contact us with questions/concerns. Patient states they understand and are in agreement with the treatment plan at this time. Patient was examined and discussed with Dr. Granda. Electronically signed by Bibi Hughes, RN at 0 11/05/2022 8:39 AM CDT 2022-11-04 Formatting of this note might be differe nt from the original. Staci Billy [facility] 10:02:51-00:[address] reques ts and is wondering if she needs to schedule any of those before her upcoming appointment in June. She had a CT done in May 2022. Please advise. Electronically signed by Staci Billy at 10/21 10:04 AM CDT 2020-11-20 [facility] 11:01:00-00:00 [facility] ([facility]) EMERGENCY PROVIDER REPORT REPORT#:[id number] REPORT STATUS: Signed DATE:11/20/20 TIME: 1101 PATIENT: LAURA GREEN UNIT #: [id number] ROOM/BED: AGE: 70 SEX: F PCP PHYS: No Primary or Family Ph ysician SERVICE AUTHOR: Timo Aponte MD * ALL edits or amendments must be made on the aWhere/computer document * HPI-Dizziness/Weakness Free Text HPI Notes Free Text HPI Notes 70-year-old female with past medical history as below presenting for evaluation due to left lower extremity weakness and numbness which began at approximately 1800 yesterday. Patient states that she was layi ng on her left side on the couch, when she went to get up she noticed diffi culty using her left leg. She was able to stand but felt as though she had no strength pushing down with her left leg. Her helped her up and her symp toms somewhat improved over time. She did have going to bed and when she woke up this morning she felt the same way again with her left leg. She states she is able to walk but feels as though she has less strength in the leg. Patient denies any headache, other areas of weakness, dizziness, or difficulty with coordination. General Confirmed Patient Yes Initial Greet Date/Time 11/20/20 1045 Presentation Chief Complaint Weakness, leg L Last Known Well Time 1800 Date 11/19/20 Risk-Dizziness/Weakness Risk Stratification NIH Stroke Scale NIH Stroke Scale Response Value NIHSS Applicable? Yes 0 Level of Consciousness Alert and responsive (0) 0 Ask Month Age Both questions right (0) 0 Blink Eyes/Squeeze Hands Performs both tasks (0 ) 0 Horizontal EOM NL side/side eye mvmt (0) 0 Visual Willis No visual loss (0) 0 Facial Palsy Normal symmetry (0) 0 Right Arm Motor Drift (10s) No drift 10 sec (0) 0 Left Arm Motor Drift (10s) No drift 10 sec (0) 0 Right Leg Motor Drift (5s) No drift 5 sec (0) 0 Left Leg Motor Drift (5s) Drift, not touch bed (1) 1 Limb Ataxia FNF/Heel-Lopes No ataxia (0) 0 Sensation (Arms/Legs/Face) No sensory loss (0) 0 Language Aphasia No aphasia, normal (0) 0 Dysarthria No dysarthria (0) 0 Extinction/Inattention No extinct/inattent (0) 0 Total 1 NIH Stroke Score Timing Time 1045 Date 11/20/20 Review of Systems Free Text ROS Notes Free Text ROS Notes Review of systems: -Constitutional: No fever, chills, fatigue -EENT: No runny nose, sore throat -Cardiovascular: No chest pain, palpitations, sy ncope -Respiratory: No shortness of breath, cough, whe ezing -GI: No abdominal pain, nausea, vomiting, diarrh ea -: No pain or burning with urination, no blood in the urine -Musculoskeletal: No joint pain, muscle pain, ba ck pain -Skin: No rash, abrasion -Neurologic: No change in LOC, confusion, slight numbness of the left lower extremity -Psychiatric: No suicidal or homicidal ideations Past Medical History - Adult Stated Complaint LEFT LEG WEAKNESS SINCE 1800 YE STERDAY Allergies Coded Allergies: No Known Allergies (11/20/20) Calculated Suicide Risk (nurs) No risk Additional Medical History HTN, HLD, GERD, CAD, GI neuroendocrine tumor Additional Surgical History PCI x1 Alcohol Use Denies EtOH use Drug Use Denies recreational drugs Smoking status: Smoking status for patients 13 years old or ol ronnie: Never Smoker Physical Exam Vital Signs Vital Signs First Documented: Result Date Time Pulse Ox 97 11/20 1047 B/P 196/119 11/20 1047 B/P Mean 144 11/20 1047 O2 Delivery Room air 11/20 1047 Temp 36.7 11/20 1047 Pulse 64 11/20 1047 Resp 18 11/20 1047 Last Documented: Result Date Time Pulse Ox 97 11/20 1258 B/P 202/96 11/20 1258 B/P Mean 131 11/20 1258 O2 Delivery Room air 11/20 1258 Temp 36.8 11/20 1258 Pulse 64 11/20 1258 Resp 16 11/20 1258 Review of Vital Signs Reviewed, Vital signs abno rmal Free Text PE Notes Free Text PE Notes Gen: Well appearing, well hydrated, cooperative Head: Normocephalic, atraumatic Eyes: EOMI, normal conjunctiva ENT: MMM, airway patent Neck: supple, no LAD Lungs: CTAB no R/R/W Heart: RRR, normal pulses Abd: S/NT/ND, normal BS, no rebound or guarding Ext: FROM BUE/LE, no deformity Neuro: A O x 3, CN II-XII intact. 07/25 st rength of RUE/LUE/RLE, slight weakness of LLE, normal sensation, normal gait, no ataxia , normal speech Psych: Normal mood and affect. Interpretation Diagnostics Lab Results Interpretation Results Laboratory Tests 11/20/20 1112: [Embedded Image Not Available] Laboratory Tests: 11/21 1111 Chemistry Sodium (134 - 147 mEq/L) 141 Potassium (3.4 - 5.0 mEq/L) 3.6 Chloride (100 - 108 mEq/L) 108 Carbon Dioxide (21 - 33 mEq/l) 25 Anion Gap (0 - 20) 11 BUN (7 - 18 mg/dL) 18 Creatinine (0.6 - 1.3 mg/dL) 1.3 Glomerular Filtr Rate (80 - 90) 40.6 L Glucose (70 - 110 mg/dL) 129 H Calcium (8.0 - 10.5 mg/dL) 9.4 Troponin I High Sens (0 - 34 ng/L) 6 Hematology WBC (4.5 - 11.0 x10 3/uL) 6.0 RBC (3.54 - 5.02 x10 6/uL) 4.60 Hgb (11.0 - 15.0 g/dL) 13.2 Hct (33.0 - 45.0 %) 40.3 MCV (81.0 - 99.0 fL) 87.6 MCH (27.0 - 33.0 pg) 28.7 MCHC (33.0 - 37.0 g/dL) 32.8 L RDW (11.5 - 14.5 %) 13.1 Plt Count (150 - 400 x10 3/uL) 184 MPV (7.0 - 9.0 fL) 10.7 H Neut % (Auto) (56.0 - 77.0 %) 66.4 Lymph % (Auto) (14.0 - 32.0 %) 21.7 [place] % (Auto) (4.8 - 9.0 %) 8.4 Eos % (Auto) (0.3 - 3.7 %) 1.3 Baso % (Auto) (0.0 - 2.0 %) 1.7 Neut # (Auto) (2.0 - 7.6 x10 3/uL) 3.97 Lymph # (Auto) (1.0 - 3.8 x10 3/uL) 1.30 [place] # (Auto) (0.1 - 0.8 x10 3/uL) 0.50 Eos # (Auto) (0.0 - 0.2 x10 3/uL) 0.08 Baso # (Auto) (0.0 - 0.2 x10 3/uL) 0.10 Abs Immat Gran (auto) (0.00 - 0.03 x10 3/uL) 0. 03 Add Manual Diff NO Immature Gran % (0.0 - 2.0 %) 0.5 Nucleated RBC % (0 - 0 %) 0.0 Nucleated RBCs # (Man) (0.0 - 0.1 x10 3/uL) 0.0 0 Recent Impressions: RADIOLOGY - XR CHEST 2 V 11/20 1132 Report Impression - Status: SIGNED Entered: 11/20/2020 1151 IMPRESSION: Mild atherosclerotic calcification demonstrated within the aorta. Impression By: [email or web address] - Jaime Evans M.D. CAT SCAN - CT HEAD/BRAIN W/O CONT 11/20 1137 Report Impression - Status: SIGNED Entered: 11/20/2020 1155 IMPRESSION: 1. No acute intracranial abnormality. 2. 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 3. Mild generalized volume loss and chronic smal l vessel ischemic changes in the supratentorial white matter. Impression By: [email or web address] - Jordon Ogden M.D. Lab Imaging Statement Laboratory radiographic studies reviewed and con sidered in the medical decision-making. ECG #1 Interpretation Text/Dict Note EKG done at 1127 on November 20, 2020 Interpreted by me, ED physician Normal sinus rhythm at 65 bpm, no acute ischemic changes, no STEMI, normal intervals, normal axis Re-Evaluation MDM Free Text MDM Notes Free Text MDM Notes NIH of 1. Patient is outside window for TPA. Pat ient does not meet criteria for ELVO. Labs, imaging, and EKG are nonactionab le. I offered the patient admission versus outpatient follow-up and she is elected to be discharged at this time. Patient will follow up with neurology . Patient is also been instructed to take her za l morning blood pressure medications as soon as she gets home ED Course Medication(s) Ordered Medication(s) Ordered: Electrolytic, Caloric, And Marcus Sig/Sal Start time Last Medication Dose Route Stop Time Status Admin Sodium Chloride 0 ASDIR PRN 11/20 1100 AC IV 11/21 0959 Patient Discharge Departure Vital Signs/Condition Vital Signs First Documented: Result Date Time Pulse Ox 97 11/20 1047 B/P 196/119 11/20 1047 B/P Mean 144 11/20 1047 O2 Delivery Room air 11/20 1047 Temp 36.7 11/20 1047 Pulse 64 11/20 1047 Resp 18 11/20 1047 Last Documented: Result Date Time Pulse Ox 97 11/20 1258 B/P 202/96 11/20 1258 B/P Mean 131 11/20 1258 O2 Delivery Room air 11/20 1258 Temp 36.8 11/20 1258 Pulse 64 11/20 1258 Resp 16 11/20 1258 All vital signs available at the time of this en try have been reviewed. Condition Stable Clinical Impression Clinical Impression Primary Impression: CVA (cerebral vascular accid ent) Secondary Impressions: Left leg weakness Disposition Decision Discharge )( Discharged to Home Yes )( Time 1254 )( Date 11/20/20 Discharge/Care Plan Counseled Regarding Diagnosi s, Lab results, Imaging studies, Need for follow-up, When to return to ED Patient Instructions ED Stroke, Completed Referrals Prem Ribeiro MD: Call for appointment Luisa Bernal MD: Call for appointment Electronically Signed by Timo Aponte MD on at 1302 RPT #:[id number] END OF REPORT 2020-07-19 Radiation Dose CTDIVOL = 0 (mGy): DLP = 817.2 (m Gy-cm) [facility] 13:03:00-00:00 PROCEDURE INFORMATION: Exam: CT Abdomen With Contrast Exam date and time: 07/19/2020 1:30 PM Age: 69 years old 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 Radiation optimization: All CT scans at this facility use at least one of these dose optimization techniques: automated exposure control; mA and/or kV adjustment per patient size (includes targeted e xams where dose is matched to clinical indication); or iterative reconstructio n. Contrast material: OMNIPAQUE 300; Contrast volum e: 100 ml; Contrast route: INTRAVENOUS (IV); Other contrast: Oral, omnipaque 300, 50; COMPARISON: CT ED Abdomen/Pelvis IV contrast only 02/19/2020 12:02 PM RADIATION DOSE METRICS: Total DLP (mGy-cm): 817.2 FINDINGS: Lungs: Streaky lung base mar kings likely represent combination of dependent and platelike atelectasis. No consolidation of visua lized lung bases. Liver: Liver demonstrates normal contours withou t focal hepatic lesions. Gallbladder and bile ducts: Gallbladder is surgi francisca absent. No intrahepatic biliary dilatation. The common bile duct is stab le in size. Pancreas: Pancreas is normal in size without per ipancreatic inflammatory changes. Spleen: Spleen is unremarkable. Adrenals: Adrenals are unremarkable. Kidneys and ureters: Bilateral kidneys are mildl y atrophic, otherwise without hydronephrosis or suspicious mass. Stomach and bowel: Postsurgical changes of a par tial ascending colectomy are again seen. There is redemonstrated dive rticulosis of the partially visualized sigmoid colon and descending colon without evide nce for acute diverticulitis. There is mild thickening of the terminal ileum without inflammatory stranding. Intraperitoneal space: Again seen is a s mall subcentimeter lesion in the right mesentery measuring 9 mm, st able from most recent prior. This may correspond to previously treated calcified mesenteric mass. Th e Lymph nodes: A few small mesenteric and retroper itoneal lymph nodes are noted which are not enlarged by size criteria. These a re stable from previous exam. No bulky adenopathy. Vasculature: Unremarkable. No abdominal aortic a neurysm. Bones/joints: Unremarkable. No acute fracture. N o dislocation. Soft tissues: Unremarkable. IMPRESSION: 1. No change from prior exam. Small subcentimete r right mesenteric lesion is stable from most recent prior and may represent sequela of previously treated carcinoid. Additional stable small mesen teric and retroperitoneal lymph nodes, which are not enlarged by size criteria. 2. Partially visualized diverticulosis of the si gmoid colon without evidence for diverticulitis. Osei Huerta MD On 07/23/2020 16:49:38; VR-NEOP [id number] 2020-05-18 GALLIUM 68 DOTATATE PET/CT DATE: 05/18/2020 7:43 EQUITY TRADER [facility] 07:15:00-00:00 CLINICAL INDICATION: C7A.011 Malignant carcinoid tumor of the jejunum - rest[place] Total body radiation dose: DLP: 508mGy*cm; CTDIv ol: 5.53mGy TECHNIQUE: Following the int ravenous administration of 5.22 mCi of Gallium 68 Dotatate , tomographic images were obtained from the base of the skull to the mid thighs, after an interval of 60 minutes[address] diagnostic CT was perform ed for purposes of attenuation correction, PET CT fusion, and anatomical mapping. COMPARISON: Gallium [address] 02/24/2020 FINDINGS: HEAD AND NECK: The visualized brain and hea d and neck demonstrates physiologic uptake. Physiologic uptake in the pituitary gland. CHEST: No suspicious pulmonary nodules. ABDOMEN AND PELVIS: Intense uptake in the spleen , liver, adrenal glands and kidneys may obscure any underlying lesions. Stable approximate 1.1 cm so ft tissue density in the mid mesentery on image 321 without abnormal uptake. Improved stranding in the mid mesentery. Stable few prominent mesenteric lymph nodes for example 7 mm, image 332 without sign ificant abnormal activity and below resolution of PET/CT. Improved diffuse sigmoid thi ckening and adjacent stranding. Improved perisigmoid lymph nodes for example 4 mm left obturator lymph node on image 4017 was previously 7 mm. Diffuse uptake in the stomach again noted (max S UV. MUSCULOSKELETAL: No abnormal uptake. IMPRESSION: Stable few mesenteric lymph nodes with no evidence of hypermetabolic disease. Recommend short-term follow-up with CT. Diffuse gastric uptake may b e from gastritis, lymphoma or neuroendocrine disease. Improved sigmoidal thickenin g which again can be correlated with any recent colonoscopy. 2020-02-24 GALLIUM 68 DOTATATE PET/CT DATE: 02/24/2020 7:32 E[facility] TRAD[facility] 07:00:00-00:00 CLINICAL INDICATION: MALIGNA NT CARCINOID TUMOR OF THE JEJUNUM - MALIGNANT CARCINOID TUMOR OF THE JEJUNUM restaging [place] Total body radiation dose: CTDI: 8.19 DLP: 782 TECHNIQUE: Following the int ravenous administration of 6.072 mCi of Gallium 68 Dotatate , tomographic images were obtained from the top of the skull to the mid thighs, after an interval of 60 minutes. N on diagnostic CT was perform ed for purposes of attenuation correction, PET CT fusion, and anatomical mapping. COMPARISON: Gallium PET/CT , CT abdomen pelvis 02/19/2020 and 07/12/2019 FINDINGS: HEAD AND NECK: The brain and head and neck demonstrates physiologic uptake. Physiologic uptake in the pituitary gland. CHEST: No suspicious pulmonary nodules. ABDOMEN AND PELVIS: Intense uptake in the spleen , liver, adrenal glands and kidneys may obscure any underlying lesions. Slightly smaller size of the soft tissue density at the surgical bed now measuring 0.8 x 1.0 cm versus 1.9 x 1.4, image 376 (previously on image 319), without abnormal activity. Mild diffuse stranding i s again noted in the surgica l bed. Mildly more prominent 9 mm right mesenteric lymph node, previously 7 mm, image 385 without significant abnormal activity. Again seen is diffuse thicke meghan of the mid sigmoid colon with mesenteric stranding likely secondary to colitis or diverticulitis. Few perisigmoidal lymph node s are more prominent as compared to prior study for example 6 mm left iliac lymph node on image 475. Anastomotic site in the ileo cecal region is without abnormal uptake. Post surgical changes in the anterior abdominal wall in the anterior mesentery. Diffuse moderate increased uptake in the stomach . Probable physiologic uptake in the uncinate process of the pancreas. Colonic diverticulosis. MUSCULOSKELETAL: No abnormal uptake. IMPRESSION: Again seen is si gmoid diverticulitis with likely reactive adjacent small perisigmoid lymph nodes. Recommend follow-up with CT chest. Mildly more prominent previo usly seen mesenteric lymph nodes without abnormal activity; however, still below resolution of PET/CT. Early recurrent disease is not excluded. Recommend clinical correlation . Mildly decreased size of a nother soft tissue density in the more superior surgical bed region. Persistent marked diffuse up take in the the gastric uptake which may be again gastritis, lymphoma or neuroendocrine disease. 2020-02-19 EXAM: ED Abdomen/Pelvis IV contrast only CT [facility] 11:54:00-00:00 DATE: 02/19/2020 10:45 EQUITY TRADER. INDICATION: - LOWER ABDOMINAL PAIN, DIARRHEA. COMPARISON: 07/12/2019. TECHNIQUE: Volumetric CT acq uisition of the abdomen and pelvis after the administration of intravenous contrast. Axial, coronal and sagittal reconstructions. AEC, mA/kV adjustment by pat ient size, and/or iterative reconstruction technique were used, per departmental dose-optimization program. IV contrast: 80 mL Omnipaque 350. Oral contrast: None. DLP: 706 mGy-cm. FINDINGS: Lines and Tubes: None. Lower Thorax: Stable appearance with no acute ab normality identified. Liver and Biliary Tree: Unremarkable. Gallbladder: Surgically absent. Adrenals: Unremarkable. Spleen: Unremarkable. Pancreas: Stable with gsbn-ci-ewiynxvh fatty atr ophy. Kidneys and Ureters: Stable kidneys with mild atrophy and small areas of cortical scarring. Stable 2 mm nonobstructing calculus/calcification in the left mid kidney. No hydroureteronephrosis bilaterally. Bladder: Unremarkable. Reproductive Organs: The [place] is not again identified and has likely been removed. Gastrointestinal Tract: Agai n seen are scattered colonic diverticuli with circumferential wall thickening in the sigmoid colon and gfjs-pm-waiyrypl pericolonic fat stranding, most suggestive of acute di verticulitis. The lumen is c ollapsed at this level, limiting evaluation of other intra-abdominal pathology. There is no drainable fluid collection or sign of perforation. No abnormal dilation of the bow el loops to suggest obstruct ion. Postsurgical findings of prior partial ascending colectomy are seen. Appendix: The appendix is no t identified. However, no evidence is identified within the right lower quadrant to suggest acute appendicitis. Peritoneum and Retroperitone um: No free air or ascites. Previously seen right calcified mesenteric mass, which measured up to 2.9 cm, now measures 0.9 cm, series 2 image 37. Lymph Nodes: No evidence of lymphadenopathy by s ize criteria. Vasculature: Moderate aortic atherosclerotic calcifications without focal aneurysm. Bones: No acute bony abnormality identified. Soft Tissues: Unremarkable. IMPRESSION: 1. Findings are compatible w ith acute sigmoid colonic diverticulitis. There is no evidence of acute complication. 2. Significant decreased size of previously seen right mesenteric mass. 2019-11-07 GALLIUM 68 DOTATATE PET/CT DATE: 11/07/2019 8:51 CDT [facility] 10:09:25-00:00 CLINICAL INDICATION: - malig nant carcinoid tumor of the jejunum initial staging [facility] Total body radiation dose: CTDI: 5.9 DLP: 554 TECHNIQUE: Following the int ravenous administration of 3.72 mCi of Gallium 68 Dotatate , tomographic images were obtained from the top of the skull to the mid thighs, after an interval of 60 minutes. N on diagnostic CT was perform ed for purposes of attenuation correction, PET CT fusion, and anatomical mapping. COMPARISON: CT abdomen pelvis 420 04/18/2023 FINDINGS: HEAD AND NECK: The brain and head and neck demonstrates physiologic uptake. Physiologic uptake in the pituitary gland. CHEST: No suspicious pulmonary nodules. ABDOMEN AND PELVIS: Intense uptake in the spleen , liver, adrenal glands and kidneys may obscure any underlying lesions. Interval resection of the me senteric mass. There is residual soft tissue density present in the surgical bed region on image 219, roughly measuring 1.9 x 1.4 cm without significant abnormal activity, im age 319. Additional few shot ty nodes are noted in the right mesentery for example 9 mm node on image 233 without abnormal activity. Anastomotic site in the ileocecal region is with out abnormal uptake. Post surgical changes in the anterior abdominal wall in the anterior mesentery. Diffuse increased uptake in the stomach. Probable physiologic uptake in the uncinate process of the pancreas. Colonic diverticulosis. MUSCULOSKELETAL: No abnormal uptake. IMPRESSION: Resection of the mesenteric mass. Suspicion for residual disease in the surgical bed or possibly postsurgical changes. Few shotty mesenteric nodes are below resolution and may be reactive or represent neuroendocrine disease. Diffuse uptake in the stomac h may be gastritis. Other consideration is lymphoma or neuroendocrine disease. 2019-07-12 Radiation Dose CTDIVOL = 0 (mGy): DLP = 1111 (mG y-cm) [facility] 19:40:00-00:00 PROCEDURE INFORMATION: Exam: CT Abdomen And Pelvis With Contrast Exam date and time: 07/12/2019 7:33 PM Age: 68 years old Clinical indication: Vomiting; Abdominal pain; L ocalized; Upper; Additional info: /upper abd pain with vomiting TECHNIQUE: Imaging protocol: Computed tomography of the abd omen and pelvis with intravenous contrast. Total DLP: 1111 mGy-cm Radiation optimization: All CT scans at this facility use at least one of these dose optimization techniques: automated exposure control; mA and/or kV adjustment per patient size (includes targeted e xams where dose is matched to clinical indication); or iterative reconstructio n. Contrast material: CQLQ103; Contrast volume: 100 ml; Contrast route: LAC; COMPARISON: OT ABDOMEN/PELVIS W IV CONTRAST CT 10/13/2013 4:0 6 AM FINDINGS: Liver: Normal. No mass. Gallbladder and bile ducts: Surgically absent. N o ductal dilation. Pancreas: Normal. No ductal dilation. Spleen: Normal. No splenomegaly. Adrenals: Normal. No mass. Kidneys and ureters: Diffuse cortical th inning and atrophy. No hydronephrosis. Stomach and bowel: Stomach shows small hiatal he rnia. No obstruction. No mucosal thickening. Multiple diverticula arise from the colon. Pericolonic fat planes remain preserved. Appendix: Not identified. Intraperitoneal space: Right mesenteric 3.1 x 2. 9 cm soft tissue mass shows coarse central calcifications. No free air. No s ignificant fluid collection. Vasculature: Normal caliber abdominal aorta cont ains atherosclerotic calcifications. No abdominal aortic aneurysm. Lymph nodes: Unremarkable. No enlarged lymph nod es. Bladder: Unremarkable as visualized. Reproductive: Uterus is not identified and may b e atrophic or surgically absent. Bones/joints: Intervertebral disc spaces show di ffuse minimal narrowing. No acute fracture. Soft tissues: Unremarkable. IMPRESSION: No acute findings. Efren Irwin MD On 07/12/2019 20:44:29; [id number] 2013-10-15 PORTABLE CHEST 2013-10-15 05:17:00 [facility] 04:45:00-00:00 Center COMPARISON: 10/13/2013 CLINICAL INDICATION: Abnormal chest sounds DISCUSSION: Stable appearance of the heart size and mediasti num. No new pleural or parenchymal based abnormality. Stable osseous structures. CONCLUSION: There has been n o significant interval change in the radiographic appearance of the chest when compared to prior radiograph. 2013-10-14 EXAM: ABDOMEN 1 VIEW [facility] dical 01:20:00-00:00 Center DATE: Oct 14, 2013 01:38:00 AM INDICATION: Abdominal pain, acute COMPARISON: October 13, 2013 TECHNIQUE: A single AP abdominal radiograph FINDINGS: The nasogastric tu be has been removed. A few mildly dilated loops of small intestine have improved from the radiographs since yesterday. There is rectal gas present. No air-fluid levels. A few clips are seen in the right upper quadrant. The lung bases are clear. The bones are intact and well aligned. IMPRESSION: Improvement of m ildly dilated small bowel. No evidence of obstruction on the current study. 2013-10-13 PORTABLE CHEST 2013-10-13 16:16:00 [facility] 16:04:00-00:00 Center COMPARISON: 05/18/2009 CLINICAL INDICATION: Hypertension DISCUSSION: Stable appearance of the heart size and mediasti num. No new pleural or parenchymal based abnormality. Stable osseous structures. CONCLUSION: There has been n o significant interval change in the radiographic appearance of the chest when compared to April 2009. 2013-10-13 EXAM: XR ABDOMEN 1 VIEW [facility] 07:25:00-00:00 Center DATE: 2013-10-13 07:33:00 INDICATION: Tube placement/removal/reposition. TECHNIQUE: An upright view t he chest and upright and supine views of the abdomen COMPARISON: CT abdomen 10/13/2013 at 4:06 a.m.. DISCUSSION: A nasogastric tube is seen w ith side-port terminating immediately below the GE junction. Surgical clips are seen in the right upper quadrant. Numerous air- filled loops of small bowel are seen, measuring up to 3.3 cm in the mid abd omen. Stool and air is noted within the colon.. Rounded calcifications are seen to project right of the lower spine and sacrum at the L4-L5 levels and the S1 level. The bladder is partially filled with contrast. IMPRESSION: 1. Nasogastric tube with melchor e port immediately below the GE junction. Advancement by approximately 5 centimeters is recommended for positioning of the side-port within the stomach. 2. Mildly dilated air-filled loops of small bowel suggestive of partial small bowel obstruction, less likely ileus. 3. Multiple rounded calcific ations projecting in the region of the right ureter likely represent phleboliths when compared to the prior CT exam.
[2022-11-18 13:12] LABS: Protime INR 0.98
[2022-11-18 13:22] LABS: Absolute Lymphocytes (CBC) 2.4 K/uL (0.7-4.9); Hematocrit 37.2 % (36.0-45.0); MCV 83.3 fL (80-100); MPV 8.9 fL (7.6-11.3); Platelets 151 thou/uL (152-406); RBC Red Blood Cell Count 4.46 M/uL (3.86-4.86)
[2022-11-18 13:23] LABS: Albumin 3.9 g/dL (3.4-5.0); Bilirubin Direct 0.2 mg/dL (0-0.2); Bilirubin Indirect, Calculated 0.4 mg/dL (0.2-0.8); Bilirubin Total 0.6 mg/dL (0.2-1.0); Magnesium 2.3 mg/dL (1.6-2.4); Potassium 3.6 mEq/L (3.5-5.1); Protein, Total 8.1 g/dL (6.4-8.2); Troponin High Sensitivity 10.5 pg/mL (<58.9)
--- NOTE | 2022-11-18 13:52 | RAD REPORT ---
EXAM DESCRIPTION: CT - Thorax Wo Con CLINICAL HISTORY: Chest pain CHEST PAIN COMPARISON: CTANGIO CHEST FOR PE dated 09/24/2010 FINDINGS: The lungs are clear. No pleural thickening or pleural effusion. No pneumothorax. No axillary, mediastinal or hilar adenopathy. No concerning bony finding. Small hiatal hernia. Cholecystectomy. All CT scans are performed using dose optimization technique as appropriate and may include automated exposure control or mA/KV adjustment according to patient size. IMPRESSION: No acute intrathoracic findings seen.
--- NOTE | 2022-11-18 14:13 | ER ---
Nurse's Notes [facility] Name: Laura Landaverde Age: 72 yrs Sex: Female : 1950 Arrival Date: 11/18/2022 Time: 12:27 Bed 7 Private MD: Diagnosis: Chest pain, dyspnea Presentation: 11/18 12:36 Chief complaint: Patient states: she started having chest pain on Thursday11/16/22. ap3 patient states her pain is currently a 9/10 on the pain scale. Coronavirus screen: At this time, the client does not indicate any symptoms associated with coronavirus-19. Ebola Screen: No symptoms or risks identified at this time. Initial Sepsis Screen: Does the patient meet any 2 criteria? No. Patient's initial sepsis screen is negative. Does the patient have a suspected source of infection? No. Patient's initial sepsis screen is negative. Risk Assessment: Do you want to hurt yourself or someone else? Patient reports no desire to harm self or others. Onset of symptoms was November 16, 2022. 12:36 Method Of Arrival: Ambulatory ap3 12:36 Acuity: MARK 2 ap3 Triage Assessment: 12:38 General: Appears distressed, Behavior is calm, cooperative, appropriate for age. Pain: ap3 Complains of pain in chest Pain currently is 9 out of 10 on a pain scale. Quality of pain is described as tightness. Neuro: Level of Consciousness is awake, alert, obeys commands, Oriented to person, place, time, situation. Cardiovascular: Reports chest pain. Respiratory: Airway is patent Respiratory effort is even, unlabored, Respiratory pattern is regular, symmetrical. Historical: - Allergies: 12:37 Beta-Blockers (Beta-Adrenergic Blocking Agts); ap3 12:37 Iodine; ap3 - PMHx: 12:37 carcinoid Syndrome; Hypertension; neuroendocrine tumor; ap3 - PSHx: 12:37 Appendectomy; cardiac stent; Cholecystectomy; Small bowel resection to remove tumor; ap3 - Immunization history:: Client reports receiving the 2nd dose of the Covid vaccine. - Social history:: Smoking status: Patient denies any tobacco usage or history of. Screenin:38 [facility] ED Fall Risk Assessment (Adult) History of falling in the last 3 months, ap3 including since admission No falls in past 3 months (0 pts). Abuse screen: Denies threats or abuse. Nutritional screening: No deficits noted. Tuberculosis screening: No symptoms or risk factors identified. Assessment: 16:31 Reassessment: No changes from previously documented assessment. Patient and/or family ld1 updated on plan of care and expected duration. Pain level reassessed. Patient is alert, oriented x 3, equal unlabored respirations, skin warm/dry/pink. See triage assessment. Vital Signs: 12:36 BP 185 / 89; Pulse 89; Resp 16; Pulse Ox 100% ; Weight 74.84 kg; Pain 9/10; ap3 14:10 BP 129 / 61; Pulse 68; Pulse Ox 100% on R/A; ap3 12:36 Pain Scale: Adult ap3 ED Course: 12:29 Patient arrived in ED. bd 12:31 James Castano MD is Attending Physician. sp3 12:36 Tala Cao, LEON is Primary Nurse. ap3 12:37 Triage completed. ap3 12:39 Arm band placed on left wrist. ap3 12:39 Patient has correct armband on for positive identification. Placed in gown. Bed in low ap3 position. Call light in reach. Side rails up X 1. paraprofessional aide on. Pulse ox on. NIBP on. 13:00 Initial lab(s) drawn, by me, sent to lab. Inserted saline lock: 22 gauge in right hand, ap3 using aseptic technique. Blood collected. 13:42 Thorax Wo Con In Process Unspecified. EDMS 14:12 Jd Reina MD is Hospitalizing Provider. sp3 14:16 XRAY Chest (1 view) In Process Unspecified. EDMS 14:39 Admitting physician to see patient. ap3 16:31 No provider procedures requiring assistance completed. Patient admitted, IV remains in ld1 place. Administered Medications: No medications were administered Medication: 12:39 VIS not applicable for this client. ap3 Outcome: 14:12 Decision to Hospitalize by Provider. sp3 16:31 Admitted to Med/surg accompanied by tech, via wheelchair, room 407, Report called to ld1 LEON Hollingsworth 16:31 Condition: stable 16:31 Instructed on the need for admit. 16:32 Patient left the ED. ld1 Signatures: Dispatcher [employer] EDMS Kathryn Douglas Tala Cao, RN RN ap3 Staci Izaguirre, RN RN ld1 James Castano, MD [facility] sp3
--- NOTE | 2022-11-18 14:13 | EDPHYS ---
Physician Documentation [facility] Name: Laura Landaverde Age: 72 yrs Sex: Female : 1950 Arrival Date: 11/18/2022 Time: 12:27 Bed 7 Private MD: ED Physician James Castano HPI: 11/18 12:59 This 72 yrs old Female presents to ER via Ambulatory with complaints of Chest pain and sp3 shortness of breath. 12:59 72-year-old female with history of neuroendocrine tumor, hypertension, diabetes, CAD sp3 with 1 stent placed in 2009 now presents to the ED with chief complaint shortness of breath with episodic chest pain and tightness that has been off and on for the last 3 days. Patient denies any cough, back pain, fever, headache, abdominal pain, nausea, vomiting, diarrhea, rash, known sick contacts, travel history, or any other signs or symptoms on ROS at this time.. Historical: - Allergies: 12:37 Beta-Blockers (Beta-Adrenergic Blocking Agts); ap3 12:37 Iodine; ap3 - PMHx: 12:37 carcinoid Syndrome; Hypertension; neuroendocrine tumor; ap3 - PSHx: 12:37 Appendectomy; cardiac stent; Cholecystectomy; Small bowel resection to remove tumor; ap3 - Immunization history:: Client reports receiving the 2nd dose of the Covid vaccine. - Social history:: Smoking status: Patient denies any tobacco usage or history of. ROS: 12:59 Constitutional: Negative for fever, chills, and weight loss, Eyes: Negative for injury, sp3 pain, redness, and discharge, Neck: Negative for injury, pain, and swelling, Abdomen/GI: Negative for abdominal pain, nausea, vomiting, diarrhea, and constipation, : Negative for injury, bleeding, discharge, and swelling, MS/Extremity: Negative for injury and deformity, Skin: Negative for injury, rash, and discoloration, Neuro: Negative for headache, weakness, numbness, tingling, and seizure, Psych: Negative for depression, anxiety, suicide ideation, homicidal ideation, and hallucinations, Allergy/Immunology: Negative for hives, rash, and allergies, Endocrine: Negative for neck swelling, polydipsia, polyuria, polyphagia, and marked weight changes, Hematologic/Lymphatic: Negative for swollen nodes, abnormal bleeding, and unusual bruising. 12:59 All other systems are negative. Exam: 13:00 Constitutional: This is a well developed, well nourished patient who is awake, alert, sp3 and in no acute distress. Head/Face: Normocephalic, atraumatic. Eyes: Pupils equal round and reactive to light, extra-ocular motions intact. Lids and lashes normal. Conjunctiva and sclera are non-icteric and not injected. Cornea within normal limits. Periorbital areas with no swelling, redness, or edema. Neck: Trachea midline, no thyromegaly or masses palpated, and no cervical lymphadenopathy. Supple, full range of motion without nuchal rigidity, or vertebral point tenderness. No Meningismus. Chest/axilla: Normal chest wall appearance and motion. Nontender with no deformity. No lesions are appreciated. Cardiovascular: Regular rate and rhythm with a normal S1 and S2. No gallops, murmurs, or rubs. Normal PMI, no JVD. No pulse deficits. Respiratory: Lungs have equal breath sounds bilaterally, clear to auscultation and percussion. No rales, rhonchi or wheezes noted. No increased work of breathing, no retractions or nasal flaring. Abdomen/GI: Soft, non-tender, with normal bowel sounds. No distension or tympany. No guarding or rebound. No evidence of tenderness throughout. Back: No spinal tenderness. No costovertebral tenderness. Full range of motion. Skin: Warm, dry with normal turgor. Normal color with no rashes, no lesions, and no evidence of cellulitis. MS/ Extremity: Pulses equal, no cyanosis. Neurovascular intact. Full, normal range of motion. Neuro: Awake and alert, GCS 15, oriented to person, place, time, and situation. Cranial nerves II-XII grossly intact. Motor strength 5/5 in all extremities. Sensory grossly intact. Cerebellar exam normal. Normal gait. Psych: Awake, alert, with orientation to person, place and time. Behavior, mood, and affect are within normal limits. 13:00 ECG was reviewed by the Attending Physician. EKG demonstrates normal sinus rhythm at 86 bpm with first-degree AV block with a RI interval of 200, normal axis, poor R wave progression on QRS, nonspecific diffuse ST/T changes without evidence of acute ischemia. Vital Signs: 12:36 BP 185 / 89; Pulse 89; Resp 16; Pulse Ox 100% ; Weight 74.84 kg; Pain 9/10; ap3 14:10 BP 129 / 61; Pulse 68; Pulse Ox 100% on R/A; ap3 12:36 Pain Scale: Adult ap3 MDM: 12:33 Patient medically screened. sp3 13:00 Data reviewed: vital signs, nurses notes, old medical records, lab test result(s), EKG, sp3 radiologic studies. ED course: 72-year-old female with shortness of breath and chest pain with ACS type presentation. I am not highly suspicious for pneumonia or pulmonary embolism however given her cancer history these must be evaluated. Work-up will include CT scan of the chest PE protocol, laboratory values, EKG which demonstrates no significant findings, and general observation. Patient will likely need admission for cardiology evaluation and ACS rule out. Currently patient is stable with mild hypertension otherwise resting comfortably.. 14:10 ED course: Initial work-up is negative. Could not do CT PE protocol secondary to sp3 elevated creatinine. If high clinical suspicion persists, will defer to the inpatient team for VQ scan or Lovenox initiation with subsequent confirmation. At this time patient is stable with normal vital signs and I will defer to the inpatient team on that matter. Noncontrast CT scan does not demonstrate any significant findings. Initial laboratory values are otherwise not significant as well. Pain and shortness of breath have somewhat resolved on their own. However given patient's history, cardiology evaluation and rule out are warranted.. 11/18 12:32 Order name: Basic Metabolic Panel; Complete Time: 14: 3 11/18 12:32 Order name: CBC with Diff; Complete Time: 14: 3 11/18 12:32 Order name: LFT's; Complete Time: 14:03 3 11/18 12:32 Order name: Magnesium; Complete Time: 14: 3 11/18 12:32 Order name: NT PRO-BNP; Complete Time: 14:03 3 11/18 12:32 Order name: PT-INR; Complete Time: 14: 3 11/18 12:32 Order name: Troponin HS; Complete Time: 14: 3 11/18 12:44 Order name: Flu; Complete Time: 14: 3 11/18 12:44 Order name: SARS-COV-2 RT PCR; Complete Time: 14:03 sp3 11/18 15:01 Order name: Hemoglobin A1c EDMS 11/18 15:01 Order name: Lipid Profile EDMS 11/18 15:01 Order name: Lipid Profile EDMS 11/18 15:03 Order name: Magnesium EDMS 11/18 15:03 Order name: Phosphorus EDMS 11/18 15:03 Order name: T4 Free EDMS 11/18 15:03 Order name: Thyroid Stimulating Hormone EDMS 11/18 15:03 Order name: Urinalysis w/ reflexes EDMS 11/18 15:03 Order name: Basic Metabolic Panel EDMS 11/18 15:03 Order name: Basic Metabolic Panel EDMS 11/18 15:03 Order name: CBC with Automated Diff EDMS 11/18 15:03 Order name: CBC with Automated Diff EDMS 11/18 15:04 Order name: NT PRO-BNP EDMS 11/18 15:04 Order name: NT PRO-BNP EDMS 11/18 15:05 Order name: Troponin High Sensitivity EDMS 11/18 15:05 Order name: Troponin High Sensitivity MS 11/18 15:05 Order name: Troponin High Sensitivity MS 11/18 12:32 Order name: XRAY Chest (1 view) 3 11/18 13:27 Order name: Thorax Wo Con; Complete Time: 14:03 EDMS 11/18 15:00 Order name: Echo with Doppler EDMS 11/18 12:32 Order name: EKG; Complete Time: 12:32 3 11/18 14:56 Order name: CONS Physician Consult EDWV 11/18 15:03 Order name: Heart Healthy EDWV 11/18 12:32 Order name: Cardiac monitoring; Complete Time: 12:39 sp3 11/18 12:32 Order name: EKG - Nurse/Tech; Complete Time: 12:39 sp3 11/18 12:32 Order name: IV Saline Lock; Complete Time: 12:52 sp3 11/18 12:32 Order name: Labs collected and sent; Complete Time: 13:00 sp3 11/18 12:32 Order name: O2 Per Protocol; Complete Time: 12:39 sp3 11/18 12:32 Order name: O2 Sat Monitoring; Complete Time: 12:39 sp3 Administered Medications: No medications were administered Disposition Summary: 11/18/22 14:12 Hospitalization Ordered Hospitalization Status: Observation sp3 Provider: Jd Reina sp3 Location: Telemetry/MedSurg (observation) sp3 Condition: Stable sp3 Problem: new sp3 Symptoms: have worsened sp3 Bed/Room Type: Standard sp3 Room Assignment: 407(11/18/22 15:10) bd Diagnosis - Chest pain, dyspnea sp3 Forms: - Medication Reconciliation Form sp3 - SBAR form sp3 - Leadership Thank You Letter sp3 Signatures: Dispatcher [employer] EDMS Kathryn Douglas Amanda RN RN ap3 James Castano MD MD sp3 Corrections: (The following items were deleted from the chart) 13:27 12:45 Chest For PE Angio+CT.RAD.BRZ ordered. EDWV EDMS 15:10 14:12 sp3 bd
--- NOTE | 2022-11-18 14:29 | RAD REPORT ---
EXAM DESCRIPTION: RAD - Chest Single View - 11/18/2022 2:14 pm CLINICAL HISTORY: CHEST PAIN Chest pain. COMPARISON: Chest Single View dated 01/04/2017; Chest Single View dated 06/28/2015; Chest Single View dated 06/27/2015; CHEST SINGLE VIEW dated 08/06/2014; Thorax Wo Con dated 11/18/2022 FINDINGS: Portable technique limits examination quality. The lungs are grossly clear. The heart is normal in size. No displaced fractures. IMPRESSION: No acute intrathoracic process suspected.
[2022-11-18] MEDS ORDERED: ASPIRIN 81 MG CHEWABLE TABLET PO ONE (14:56)
[2022-11-18] MEDS ORDERED: TRAMADOL HCL 50 MG TAB PO PRN (14:58)
[2022-11-18] MEDS ORDERED: ACETAMINOPHEN 325 MG TABLET PO PRN (14:58)
--- NOTE | 2022-11-18 15:04 | P.HP ---
Certification for Inpatient Patient admitted to: Observation With expected LOS: <2 Midnights Patient will require the following post-hospital care: None Practitioner: I am a practitioner with admitting privileges, knowledge of patient current condition, hospital course, and medical plan of care. Services: Services provided to patient in accordance with Admission requirements found in Title 42 Section 412.3 of the Code of Federal Regulations Patient History Date of Service: 11/18/22 Reason for admission: Chest pain History of Present Illness: Patient is a 72-year-old female with a past medical history significant for hypertension, FLACO, GERD, HLD, CAD, CVA who presents with complaint of chest pain located in the substernal chest area. Patient reported that she has been having intermittent chest pain for the past 6 months. Patient reported that chest pain became worse this morning. Patient rated chest pain as 9/10 in severity and described pain as tightness in quality. Patient indicated that chest pain radiates to his bilateral shoulders and back. Patient reported associated signs and symptoms of chills, headache, palpitation, dizziness, nausea and shortness of breath. Patient denies any other signs and symptoms. Symptoms are aggravated or relieved by nothing. Patient decided to present to the hospital due to worsening symptoms. Of note, patient reported that she has been having poor appetite in the past couple of months. Allergies Iodinated Contrast Media Allergy (Verified 03/26/17 10:04) Itching/Hives/Rash iodine Allergy (Verified 03/26/17 10:04) Unknown Beta-Blockers (Beta-Ad Adverse Reaction (Uncoded 03/26/17 10:04) Unknown Home Medications: Clopidogrel Bisulfate [Plavix*] 75 mg PO DAILY #0 tablet 06/14/12 Pantoprazole [Protonix Tab*] 40 mg PO DAILY 08/06/14 Amlodipine [Norvasc] 10 mg PO DAILY 11/18/22 Aspirin Chewable [Aspirin Chewable*] 81 mg PO DAILY 11/18/22 Ferrous Sulfate [Iron] 65 mg PO DAILY 11/18/22 Losartan Potassium [Cozaar] 100 mg PO DAILY 11/18/22 Rosuvastatin [Crestor*] 20 mg PO BEDTIME 11/18/22 - Past Medical/Surgical History Diabetic: No -: HTN -: GERD -: FLACO -: HLD -: Neuroendocrine tumor -: CAD -: CVA -: Hysterectomy -: -: Heart stents - Family History Father -: Hypertension Mother -: Hypertension, Stroke Brother -: Hypertension, Diabetes - Social History Smoking Status: Never smoker Alcohol use: No CD- Drugs: No Caffeine use: Yes Place of Residence: Home Review of Systems General: Chills, Other (Poor appetite ) Eyes: Unremarkable ENT: Unremarkable Respiratory: Shortness of Breath Cardiovascular: Chest Pain, Palpitations Gastrointestinal: Nausea Genitourinary: Unremarkable Musculoskeletal: Shoulder Pain, Back Pain Integumentary: Unremarkable Neurological: Other (ROY, Dizziness) Lymphatics: Unremarkable Physical Examination - Physical Exam General: Alert, In no apparent distress, Oriented x3, Cooperative HEENT: Atraumatic, PERRLA, Mucous membr. moist/pink, EOMI, Sclerae nonicteric Neck: Supple, 2+ carotid pulse no bruit, No LAD, Without JVD or thyroid abnormality Respiratory: Clear to auscultation bilaterally, Normal air movement Cardiovascular: No edema, Normal pulses, Regular rate/rhythm, Normal S1 S2 Capillary refill: <2 Seconds Gastrointestinal: Normal bowel sounds, Soft and benign, No tenderness Musculoskeletal: No clubbing, No swelling, No tenderness Integumentary: No rashes, No significant lesion, No tenderness/swelling Neurological: Normal gait, Normal speech, Normal strength at 5/5 x4 extr, Normal tone, Normal affect Lymphatics: No axilla or inguinal lymphadenopathy - Studies Laboratory Data (last 24 hrs) 11/18/22 11/18/22 11/18/22 12:53 12:53 12:53 WBC 6.90 Hgb 12.8 Hct 37.2 Plt Count 151 L PT 10.8 INR 0.98 Sodium 138 Potassium 3.6 BUN 27 H Creatinine 2.49 H Glucose 124 H Magnesium 2.3 Total Bilirubin 0.6 AST 14 L ALT 23 Alkaline Phosphatase 76 Microbiology Data (last 24 hrs): 11/18/22 12:55 Nasopharnyx Influenza Type A Antigen Screen - Final 11/18/22 12:55 Nasopharnyx Influenza Type B Antigen Screen - Final Assessment and Plan - Plan --Chest pain. To rule out ACS. Will trend serial troponins--negative so far. Rn Transport consulted. Echocardiogram pending to assess LV\valvular functions and wall motion. Telemetry to monitor for any significant arrhythmia. Will await further recommendation from bureau director. --FLACO. Continue ferrous sulfate. --Hyperlipidemia. Continue statin. --History of CAD\CVA. Continue aspirin, Plavix and statin. --GERD. Continue Protonix. --Prediabetes. Hemoglobin A1c 6.0. Patient counseled on weight reduction, diet and excise therapy. --MARTHA on CKD 3B. Likely prerenal secondary to poor p.o. hydration. Nephrology consulted. We will await further recommendation. --History of neuroendocrine tumor. S\P small bowel resection to remove tumor. Patient follows up with an outpatient oncologist. Continue supportive care -- Nausea. Antiemetics on board. Continue supportive care. --Hypertension. Poorly controlled. Continue home medications and hydralazine as needed. --Headache. Tylenol as needed. --DVT prophylaxis with Lovenox subQ. Discharge Plan: Home Plan to discharge in: 48 Hours - Advance Directives Does patient have a Living Will: No Does patient have a Durable POA for Healthcare: No - Code Status/Comfort Care Code Status Assessed: Yes Physician Review: Patient Assessed, Agree with Above Assessment and Plan Critical Care: No
--- NOTE | 2022-11-18 16:25 | EKG ---
Test Date: 2022-11-18 Test Time: 12:36:49 Merchandise Coordinator: JEANNE MEASUREMENT RESULTS: Intervals: Rate: 86 WI: 200 QRSD: 78 QT: 388 QTc: 464 [place]: P: 54 WI: 200 QRS: 23 T: 86 INTERPRETIVE STATEMENTS: Sinus rhythm with premature atrial complexes Otherwise normal ECG Compared to ECG 01/04/2017 11:41:54 Atrial premature complex(es) now present ST (T wave) deviation no longer present Possible ischemia no longer present Prolonged QT interval no longer present Electronically Signed On 11-18-22 16:24:55 CDT by Juanjose Hunter
[2022-11-18 16:52] VITALS: BMI 32.2
[2022-11-18] MEDS ORDERED: HYDRALAZINE HCL 20 MG/ML VIAL IV PRN (17:35)
[2022-11-18] MEDS: ENOXAPARIN 40 MG/0.4 ML SQ SCH (17:52)
[2022-11-18] MEDS: AMLODIPINE 10 MG TAB PO SCH ×2 (17:52→18:00)
[2022-11-18 19:06] LABS: Magnesium 2.3 mg/dL (1.6-2.4); Phosphorus 3.6 mg/dL (2.5-4.9); Thyroid Stimulating Hormone 2.03 uIU/mL (0.358-3.740)
[2022-11-18 19:29] LABS: Urine Bacteria None Seen /HPF (<20); Urine Bilirubin NEGATIVE (Negative); Urine Blood Trace (Negative); Urine Clarity Clear (Clear); Urine Color Colorless (Yellow); Urine Glucose NEGATIVE (Negative); Urine Protein 1+ (Negative); Urine RBC <5 /HPF (None Seen); Urine Urobilinogen Normal (Normal)
--- NOTE | 2022-11-18 19:37 | CON ---
Date of Consultation: 11/18/2022 Reason For Consultation: Chest pain. History Of Present Illness: A 72-year-old female, history of dyslipidemia, coronary artery disease, CVA, stent long time ago as per her report, who presented with chest pain, retrosternal and radiates to her throat and she also feels palpitations that makes her feel dizzy, gets short of breath and edwina rt lived and goes away on its own. No active chest pain at the present time. Past Medical History: As outlined above in the HPI. Medications: Refer to reconciliation sheet for detailed list. Allergies: IODINE, NSAIDS, BETA-BLOCKERS WELL. Family History: No premature coronary artery disease or cancer. Social History: She does not smoke or drink. Does not use any drugs. Review of Systems: All systems reviewed and they were negative except what mentioned in HPI. Physical Examination: Vital Signs: Reviewed. Head and Neck: Pupils are equal, reactive to light. Intact eye movements. No JVD. No cervical lym phadenopathy. Neck is supple. Thyroid is not enlarged. Lungs: Clear to auscultation bilaterally. No rhonchi, wheezing, or crackles. No accessory muscle u se. Heart: Regular rate and rhythm. No extra sounds. Abdomen: Soft, nontender. Bowel sounds positive. No organomegaly. No masses or hernia. No rigidi ty or rebound. Extremities: No edema, clubbing, or cyanosis. Intact pulses. Skin: No rash. Neurologic: Alert, awake, oriented x3. No acute focal deficits appreciated. Investigations: BUN 27, creatinine 2.4, and hemoglobin is 12.8. Assessment And Recommendations: 1.Chest pain. She is known to have history of coronary artery disease status post PCI many years ag o. Admit, trend cardiac enzymes, start her on baby aspirin. The patient has taken already Plavix, s o there is no need for aspirin. Continue Plavix for now and obtain a Lexiscan nuclear stress test to esteves morning and an echo to further evaluate. 2.Hypertension. Blood pressure is controlled. Continue home medications. 3.Dyslipidemia. Continue statin. SR/MODL Voice ID: [id number] Report ID: [id number]
[2022-11-18] MEDS ORDERED: ROSUVASTATIN 10 MG TAB PO SCH (21:00)
[2022-11-18] MEDS ORDERED: MELATONIN 5 MG TABLET PO PRN (23:07)
[2022-11-19 05:38] LABS: Absolute Lymphocytes (CBC) 1.7 K/uL (0.7-4.9); Hematocrit 36.7 % (36.0-45.0); Lymphocytes % 24.9 % (15.3-44.8); MCV 84.1 fL (80-100); MPV 8.9 fL (7.6-11.3); Platelets 124 thou/uL (152-406); RBC Red Blood Cell Count 4.36 M/uL (3.86-4.86)
[2022-11-19 05:42] LABS: Potassium 3.9 mEq/L (3.5-5.1)
[2022-11-19] MEDS: ONDANSETRON 4 MG/2 ML VIAL IV PRN ×2 (05:59→10:23)
--- NOTE | 2022-11-19 08:45 | P.CNS ---
Date of Consult: 11/19/22 Reason for Consult: MARTHA Requesting Physician: Jd Reina Chief Complaint: Chest pain History of Present Illness: Patient is a 72-year-old female with a past medical history significant for hypertension, FLACO, GERD, HLD, CAD, CVA who presents with complaint of chest pain located in the substernal chest area. Patient reported that she has been having intermittent chest pain for the past 6 months. Patient reported that chest pain became worse this morning. Patient rated chest pain as 9/10 in severity and described pain as tightness in quality. Patient indicated that chest pain radiates to his bilateral shoulders and back. Patient reported associated signs and symptoms of chills, headache, palpitation, dizziness, nausea and shortness of breath. Patient denies any other signs and symptoms. Symptoms are aggravated or relieved by nothing. Patient decided to present to the hospital due to worsening symptoms. Of note, patient reported that she has been having poor appetite in the past couple of months. 12:59 This 72 yrs old Female presents to ER via Ambulatory with complaints of Chest pain and sp3 shortness of breath. 12:59 72-year-old female with history of neuroendocrine tumor, hypertension, diabetes, CAD sp3 with 1 stent placed in 2009 now presents to the ED with chief complaint shortness of breath with episodic chest pain and tightness that has been off and on for the last 3 days. Patient denies any cough, back pain, fever, headache, abdominal pain, nausea, vomiting, diarrhea, rash, known sick contacts, travel history, or any other signs or symptoms on ROS at this time. Allergies Iodinated Contrast Media Allergy (Verified 03/26/17 10:04) Itching/Hives/Rash iodine Allergy (Verified 03/26/17 10:04) Unknown Beta-Blockers (Beta-Ad Adverse Reaction (Uncoded 03/26/17 10:04) Unknown Home medications list reviewed: Yes Home Medications: Clopidogrel Bisulfate [Plavix*] 75 mg PO DAILY #0 tablet 06/14/12 Pantoprazole [Protonix Tab*] 40 mg PO DAILY 08/06/14 Amlodipine [Norvasc] 10 mg PO DAILY 11/18/22 Aspirin Chewable [Aspirin Chewable*] 81 mg PO DAILY 11/18/22 Ferrous Sulfate [Iron] 65 mg PO DAILY 11/18/22 Losartan Potassium [Cozaar] 100 mg PO DAILY 11/18/22 Rosuvastatin [Crestor*] 20 mg PO BEDTIME 11/18/22 - Past Medical/Surgical History Diabetic: No -: HTN -: GERD -: FLACO -: HLD -: Neuroendocrine tumor -: CAD -: CVA -: CKD III (Dr. Franco/ Dr. Daily) -: PreDM -: Hysterectomy -: -: Heart stents -: appendectomy -: cholecystectomy - Family History Father Medical History: Hypertension Mother Medical History: Hypertension, Stroke Brother Medical History: Hypertension, Diabetes - Social History Smoking Status: Never smoker Alcohol use: No CD- Drugs: No Caffeine use: Yes Place of Residence: Home Review of Systems 10-point ROS is otherwise unremarkable Cardiovascular: Chest Pain Physical Examination Temp Pulse Resp BP Pulse Ox 97.9 F 69 14 115/67 97 11/19/22 08:00 11/19/22 08:00 11/19/22 08:00 11/19/22 08:00 11/19/22 08:00 General: In no apparent distress, Oriented x3, Cooperative HEENT: Atraumatic Neck: Supple Respiratory: Clear to auscultation bilaterally Cardiovascular: No edema, Regular rate/rhythm Gastrointestinal: Soft and benign, Non-distended Musculoskeletal: No clubbing, No contractures Integumentary: No rashes, No cyanosis Neurological: Normal speech Laboratory Data (last 24 hrs) 11/18/22 11/18/22 11/18/22 12:53 12:53 12:53 WBC 6.90 Hgb 12.8 Hct 37.2 Plt Count 151 L PT 10.8 INR 0.98 Sodium 138 Potassium 3.6 BUN 27 H Creatinine 2.49 H Glucose 124 H Magnesium 2.3 Total Bilirubin 0.6 AST 14 L ALT 23 Alkaline Phosphatase 76 Imagings Data: EXAM DESCRIPTION: CT - Thorax Wo Con CLINICAL HISTORY: Chest pain CHEST PAIN COMPARISON: CTANGIO CHEST FOR PE dated 09/24/2010 FINDINGS: The lungs are clear. No pleural thickening or pleural effusion. No pneumothorax. No axillary, mediastinal or hilar adenopathy. No concerning bony finding. Small hiatal hernia. Cholecystectomy. All CT scans are performed using dose optimization technique as appropriate and may include automated exposure control or mA/KV adjustment according to patient size. IMPRESSION: No acute intrathoracic findings seen. EXAM DESCRIPTION: RAD - Chest Single View - 11/18/2022 2:14 pm CLINICAL HISTORY: CHEST PAIN Chest pain. COMPARISON: Chest Single View dated 01/04/2017; Chest Single View dated 06/28/2015; Chest Single View dated 06/27/2015; CHEST SINGLE VIEW dated 08/06/2014; Thorax Wo Con dated 11/18/2022 FINDINGS: Portable technique limits examination quality. The lungs are grossly clear. The heart is normal in size. No displaced fractures. IMPRESSION: No acute intrathoracic process suspected. Conclusions/Impression: Stage II MARTHA CKD III with Proteinuria -No NSAIDs -Start IVF with 1/2NS HTN with CKD -Continue Amlodipine PreDM -No sugar diet CAD/ Chest Pain -Follow up with cardiology Hospitalist and ER notes reviewed Thank you kindly for the consultation
[2022-11-19 08:57] VITALS: O2SAT 95
[2022-11-19] MEDS: AMLODIPINE 10 MG TAB PO SCH (08:58)
[2022-11-19] MEDS: ENOXAPARIN 40 MG/0.4 ML SQ SCH ×2 (08:58→09:00)
[2022-11-19] MEDS ORDERED: CLOPIDOGREL 75 MG TABLET PO SCH (09:00)
[2022-11-19] MEDS ORDERED: FERROUS SULFATE 325 MG TAB PO SCH (09:00)
[2022-11-19] MEDS ORDERED: AMLODIPINE 10 MG TAB PO SCH (09:00)
[2022-11-19] MEDS ORDERED: PANTOPRAZOLE 40MG TABLET PO SCH (09:00)
[2022-11-19] MEDS ORDERED: REGADENOSON 0.4 MG/5 ML SYR IV ONE (09:57)
[2022-11-19] MEDS ORDERED: ONDANSETRON 4 MG/2 ML VIAL ONE (10:22)
[2022-11-19] MEDS ORDERED: NACHLORIDE 0.45% 1,000 ML IV SCH ×2 (11:00)
--- NOTE | 2022-11-19 11:25 | RAD REPORT ---
EXAM DESCRIPTION: NM - Rest Stress Cardiac Imaging - 11/19/2022 10:53 am CLINICAL HISTORY: CP COMPARISON: Chest Single View dated 11/18/2022 TECHNIQUE: The patient was administered approximately 9.9 mCi of Tc 99m Sestamibi prior to resting S PECT imaging of the heart. The patient was then administered approximately 31.1 mCi of Tc 99m Sestami bi following exercise or pharmacologic stress. Multiplanar SPECT images were reviewed. FINDINGS: Small region of reversible defect is seen at the mid to basal junction of the inferior and lateral valdivia, may suggest stress induced ischemia. Small fixed defect is seen at the apex, suggesti ng scarred myocardium. The end diastolic volume is 62 ml, the end systolic volume is 15 ml, and the ejection fraction is 75 %. IMPRESSION: Small region of reversible defect at the mid to basal junction of the inferior and later al valdivia, suggestive of a small region of ischemia. Small fixed defect at the apex, suggesting sequelae of a remote infarct. Normal left ventricular ejection fraction, 75%.
--- NOTE | 2022-11-19 12:33 | P.PN ---
Subjective Date of Service: 11/19/22 Chief Complaint: Chest pain No acute events since admission. She reports having intermittent left-sided substernal chest pain over the last 6 months. Her chest pain occurs without any obvious inciting or alleviating factors. She denies any chest pain currently this morning on rounds. She denies any palpitations or shortness of breath. Review of Systems 10-point ROS is otherwise unremarkable Cardiovascular: Chest Pain Physical Examination - Vital Signs Temperature: 98.4 F Blood Pressure: 119/69 Pulse: 77 Respirations: 16 Pulse Ox (%): 98 - Physical Exam General: Alert, In no apparent distress, Oriented x3 HEENT: Atraumatic, Mucous membr. moist/pink, Sclerae nonicteric Neck: JVD not distended Respiratory: Clear to auscultation bilaterally, Normal air movement Cardiovascular: No edema, Regular rate/rhythm, Normal S1 S2, No gallops, No rubs, No murmurs Gastrointestinal: Normal bowel sounds, Soft and benign, Non-distended, No tenderness, No rebound, No guarding Musculoskeletal: No clubbing Integumentary: No rashes Neurological: Normal speech, Normal affect - Studies Laboratory Data (last 24 hrs) 11/18/22 11/18/22 11/18/22 12:53 12:53 12:53 WBC 6.90 Hgb 12.8 Hct 37.2 Plt Count 151 L PT 10.8 INR 0.98 Sodium 138 Potassium 3.6 BUN 27 H Creatinine 2.49 H Glucose 124 H Magnesium 2.3 Total Bilirubin 0.6 AST 14 L ALT 23 Alkaline Phosphatase 76 Microbiology Data (last 24 hrs): 11/18/22 12:55 Nasopharnyx Influenza Type A Antigen Screen - Final 11/18/22 12:55 Nasopharnyx Influenza Type B Antigen Screen - Final Assessment And Plan - Plan # Suspected Unstable Angina # Hypertensive Urgency - improved # History of Coronary Artery Disease s/p PCI (2009) # History of Cerebrovascular Accident # Hyperlipidemia # Mild Thrombocytopenia - Evaluation thus far: - EKG: without STEMI criteria, trend - Serial troponin: 10.5 -> 14.4 -> 14.3 - Ordered transthoracic echocardiogram - Chest x-ray = "no acute intrathoracic process suspected." - CT chest = "no acute intrathoracic findings seen." - Ordered d-dimer - Management plan: - Consulted Cardiology and she was evaluated by Dr. Hunter - recommendations appreciated - Recommended nuclear stress test today - Continue home rosuvastatin, clopidogrel - Aspirin not required per Cardiology - Beta-claude not given due to allergy - Hold home losartan given MARTHA # Acute Kidney Injury on Chronic Kidney Disease Stage III - Consulted Nephrology - recommendations appreciated - Creatinine = 2.49 -> 1.87 (creatinine was 1.41 on 01/25/2021) - Urinalysis = 1+ protein - Monitor creatinine and urine output - If worsening, obtain renal ultrasound - Renally dose medications # Prediabetes - Hgb A1c = 6.0 % - Correction scale insulin # Gastroesophageal Reflux Disease - Continue home pantoprazole # History Neuroendocrine Tumor s/p Resection - Outpatient follow-up as previously scheduled Jd Reina M.D.
--- NOTE | 2022-11-19 13:03 | EKG ---
Test Date: 2022-11-19 Test Time: 10:19:44 Tai Chi Instructor: CHICO MEASUREMENT RESULTS: Intervals: Rate: 89 [place]: 204 QRSD: 78 QT: 404 QTc: 491 [place]: P: 63 [place]: 204 QRS: 6 T: 147 INTERPRETIVE STATEMENTS: Normal sinus rhythm Possible Anterior infarct, age undetermined ST & T wave abnormality, consider lateral ischemia Abnormal ECG Compared to ECG 11/18/2022 12:36:49 Myocardial infarct finding now present ST (T wave) deviation now present Possible ischemia now present Atrial premature complex(es) no longer present Electronically Signed On 11-19-22 13:02:36 CDT by Juanjose Hunter
--- NOTE | 2022-11-19 13:56 | ECHO ---
HEIGHT: 5 ft 0 in WEIGHT: 164 lb 15.903 oz DATE OF STUDY: 11/19/[address]: Bob Kingston 2-DIMENSIONAL: YES M.MODE: YES DOPPLER: YES COLOR FLOW: YES TDS: NO PORTABLE: YES DEFINITY: NO BUBBLE STUDY: NO DIAGNOSIS: CHEST PAIN CARDIAC HISTORY: CATHERIZATION: SURGERY: PROSTHETIC VALVE: PACEMAKER: MEASUREMENTS (cm) DIASTOLIC (NORMALS) SYSTOLIC (NORMALS) IVSd 1.0 (0.6-1.2) LA Diam 3.7 (1.9-4.0) LVEF 63% LVIDd 3.9 (3.5-5.7) LVIDs 2.6 (2.0-3.5) %FS 33% LVPWd 1.1 (0.6-1.2) Ao Diam 3.2 (2.0-3.7) 2 DIMENSIONAL ASSESSMENT: RIGHT ATRIUM: NORMAL LEFT ATRIUM: NORMAL RIGHT VENTRICLE: NORMAL LEFT VENTRICLE: NORMAL TRICUSPID VALVE: NORMAL MITRAL VALVE: MILD MAC PULMONIC VALVE: NORMAL AORTIC VALVE: NORMAL PERICARDIAL EFFUSION: NONE AORTIC ROOT: NORMAL LEFT VENTRICULAR WALL MOTION: NORMAL. DOPPLER/COLOR FLOW: NORMAL. COMMENTS: 1. NORMAL LEFT VENTRICULAR EJECTION FRACTION 60-65%. 2. NORMAL WALL MOTION. TECHNOLOGIST: Rishabh KELLER
--- NOTE | 2022-11-19 17:32 | RAD REPORT ---
EXAM DESCRIPTION: USExtrem Venous W Compress Bil11/19/2022 5:22 pm CLINICAL HISTORY: elevated d-dimer COMPARISON: none FINDINGS: The common femoral, superficial femoral, greater saphenous, popliteal and posterior tibial veins bilaterally are compressible and demonstrate augmentation. Doppler demonstrates good flow. Grayscale, color and spectral analysis performed on all vessels IMPRESSION: No evidence of deep venous thrombosis involving either lower extremity.
--- NOTE | 2022-11-19 17:36 | PN ---
Date of Progress Note: 11/19/2022 Subjective: Seen by bedside. No further chest pain. Cardiac enzymes have been negative. Review of Systems: No chest pain, shortness of breath, orthopnea, cough. No nausea, vomiting, diarrhea. All other syst ems reviewed and negative. Physical Examination: Vital Signs: Reviewed. Head and Neck: Pupils are equal, reactive to light. Intact eye movements. No JVD. No cervical lym phadenopathy. Neck is supple. Thyroid is not enlarged. Lungs: Clear to auscultation bilaterally. No rhonchi, wheezing, or crackles. No accessory muscle u se. Heart: Regular rate and rhythm. No extra sounds. Abdomen: Soft, nontender. Bowel sounds positive. No organomegaly. No masses or hernia. No rigidi ty or rebound. Extremities: No edema, clubbing, or cyanosis. Intact pulses. Skin: No rash. Neurologic: Alert, awake, oriented x3. No acute focal deficits appreciated. Investigations: Cardiac enzymes x3 are negative. Creatinine 1.87, BUN 29, and stress test showed a small region visible defect of mid basal junction of the inferior and lateral wall. Assessment And Recommendations: 1.Chest pain. Very small area of ischemia does not even follow territory of coronary artery disease . She has no chest pain. Cardiac enzymes are negative. She can be released to follow up with me in the office in 1-2 weeks and then we will arrange for coronary angiogram due to the abnormal stress t est. 2.Acute on chronic renal failure, and this is improved. 3.Dyslipidemia. Continue statin. Patient can be released from Cardiology standpoint to follow up with me in the office in 1-2 weeks. SR/MODL Voice ID: [id number] Report ID: [id number]
--- NOTE | 2022-11-19 19:12 | P.DS ---
Admission Date: 11/18/22 Discharge Date: 11/19/22 Disposition: AMA-LEFT AGAINST MEDICAL ADVIC Discharge Condition: FAIR Reason for Admission: Chest pain Consultations: Cardiology , nephrology Procedures: CXR 11/18/22 FINDINGS: Portable technique limits examination quality. The lungs are grossly clear. The heart is normal in size. No displaced fractures. IMPRESSION: No acute intrathoracic process suspected. Ct chest 11/18/22 FINDINGS: The lungs are clear. No pleural thickening or pleural effusion. No pneumothorax. No axillary, mediastinal or hilar adenopathy. No concerning bony finding. Small hiatal hernia. Cholecystectomy. All CT scans are performed using dose optimization technique as appropriate and may include automated exposure control or mA/KV adjustment according to patient size. IMPRESSION: No acute intrathoracic findings seen Stress test 11/19/22 TECHNIQUE: The patient was administered approximately 9.9 mCi of Tc 99m Sestamibi prior to resting SPECT imaging of the heart. The patient was then administered approximately 31.1 mCi of Tc 99m Sestamibi following exercise or pharmacologic stress. Multiplanar SPECT images were reviewed. FINDINGS: Small region of reversible defect is seen at the mid to basal junction of the inferior and lateral valdivia, may suggest stress induced ischemia. Small fixed defect is seen at the apex, suggesting scarred myocardium. The end diastolic volume is 62 ml, the end systolic volume is 15 ml, and the ejection fraction is 75 %. IMPRESSION: Small region of reversible defect at the mid to basal junction of the inferior and lateral valdivia, suggestive of a small region of ischemia. Small fixed defect at the apex, suggesting sequelae of a remote infarct. Normal left ventricular ejection fraction, 75%. Venous doppler maximus le FINDINGS: The common femoral, superficial femoral, greater saphenous, popliteal and posterior tibial veins bilaterally are compressible and demonstrate augmentation. Doppler demonstrates good flow. Grayscale, color and spectral analysis performed on all vessels IMPRESSION: No evidence of deep venous thrombosis involving either lower extremity. Echo 11/19/22 COMMENTS: 1. NORMAL LEFT VENTRICULAR EJECTION FRACTION 60-65%. 2. NORMAL WALL MOTION. Brief History of Present Illness: Patient is a 72-year-old female with a past medical history significant for hypertension, FLACO, GERD, HLD, CAD, CVA who presents with complaint of chest pain located in the substernal chest area. Patient reported that she has been having intermittent chest pain for the past 6 months. Patient reported that chest pain became worse this morning. Patient rated chest pain as 9/10 in severity and described pain as tightness in quality. Patient indicated that chest pain radiates to his bilateral shoulders and back. Patient reported associated signs and symptoms of chills, headache, palpitation, dizziness, nausea and shortness of breath. Patient denies any other signs and symptoms. Symptoms are aggravated or relieved by nothing. Patient decided to present to the hospital due to worsening symptoms. Of note, patient reported that she has been having poor appetite in the past couple of months. Hospital Course: Patient was admitted for chest pain, hypertensive urgency, stage II MARTHA. She was evaluated by cardiology who performed stress test which showed small region of reversible defect at the mid to basal junction of the inferior and lateral wall suggestive of small region of ischemia. Small fixed defect at the apex suggesting sequela of remote infarct. Normal left ventricular ejection fraction 75%. Case was discussed with cardiology who recommends close outpatient follow- up, will see patient on Thursday for further evaluation. Of note her D-dimer came back mildly elevated just outside the age-adjusted range for her, venous Dopplers performed of the lower extremities both negative for DVT. She has not been tachycardic, hypoxic, tachypneic denies any syncope. PE unlikely but unable to rule out currently as she has a significant allergy to iodine as well as elevated creatinine therefore we cannot complete CTA of the chest currently. Since she also had the nuclear stress test today she is not eligible to receive a VQ scan tonight, discussed the safest option would be to stay to the morning and have a VQ scan performed given her elevated D-dimer and the fact that we cannot totally rule out pulmonary embolism. She declined this offer and decided she would rather leave AGAINST MEDICAL ADVICE this evening and follow-up with her primary care doctor for possible outpatient VQ scan as well as follow-up with cardiology/nephrology. Discussed this at length with patient including the risk of serious harm or if she does have a pulmonary embolism. She verbalized understanding, plans on close follow-up. Return precautions discussed at length. Vital Signs/Physical Exam: Temp Pulse Resp BP Pulse Ox 96.7 F L 71 16 113/64 95 11/19/22 15:30 11/19/22 15:30 11/19/22 15:30 11/19/22 15:30 11/19/22 15:30 General: Alert, In no apparent distress, Oriented x3 HEENT: Atraumatic, PERRLA, EOMI Neck: Supple, JVD not distended Respiratory: Clear to auscultation bilaterally, Normal air movement Cardiovascular: Regular rate/rhythm, Normal S1 S2 Capillary refill: <2 Seconds Gastrointestinal: Normal bowel sounds, No tenderness Musculoskeletal: No tenderness Integumentary: No rashes Neurological: Normal speech, Normal tone, Normal affect Lymphatics: No axilla or inguinal lymphadenopathy Laboratory Data at Discharge: WBC 6.70 thou/uL (4.3-10.9) 11/19/22 05:08 Hgb 12.5 g/dL (12.0-15.0) 11/19/22 05:08 Hct 36.7 % (36.0-45.0) 11/19/22 05:08 Plt Count 124 thou/uL (152-406) L 11/19/22 05:08 PT 10.8 SECONDS (9.5-12.5) 11/18/22 12:53 INR 0.98 11/18/22 12:53 Sodium 142 mEq/L (136-145) 11/19/22 05:08 Potassium 3.9 mEq/L (3.5-5.1) 11/19/22 05:08 BUN 29 mg/dL (7-18) H 11/19/22 05:08 Creatinine 1.87 mg/dL (0.55-1.02) H 11/19/22 05:08 Glucose 119 mg/dL (74-106) H 11/19/22 05:08 Phosphorus 3.6 mg/dL (2.5-4.9) 11/18/22 18:18 Magnesium 2.3 mg/dL (1.6-2.4) 11/18/22 18:18 Total Bilirubin 0.6 mg/dL (0.2-1.0) 11/18/22 12:53 AST 14 U/L (15-37) L 11/18/22 12:53 ALT 23 U/L (13-56) 11/18/22 12:53 Alkaline Phosphatase 76 U/L (45-117) 11/18/22 12:53 Triglycerides 113 mg/dL (<150) 11/19/22 05:08 Cholesterol 134 mg/dL (<200) 11/19/22 05:08 HDL Cholesterol 58 mg/dL (40-60) 11/19/22 05:08 Cholesterol/HDL Ratio 2.31 11/19/22 05:08 Home Medications: Clopidogrel Bisulfate [Plavix*] 75 mg PO DAILY #0 tablet 06/14/12 Pantoprazole [Protonix Tab*] 40 mg PO DAILY 08/06/14 Amlodipine [Norvasc] 10 mg PO DAILY 11/18/22 Aspirin Chewable [Aspirin Chewable*] 81 mg PO DAILY 11/18/22 Ferrous Sulfate [Iron] 65 mg PO DAILY 11/18/22 Losartan Potassium [Cozaar] 100 mg PO DAILY 11/18/22 Rosuvastatin [Crestor*] 20 mg PO BEDTIME 11/18/22 Diet: AHA Activity: Ad anil Followup: RAUL CARTER [Primary Care Provider] - Juanjose Hunter MD [ACTIVE - CAN ADMIT] - Antoinette Pisano MD [ACTIVE - CAN ADMIT] - Manjeet Franco DO [ACTIVE - CAN ADMIT] - Time spent managing pt's care (in minutes): 25
[2022-11-19 20:43] VITALS: BP 138/61; TEMP 98.1
--- NOTE | 2022-11-20 06:50 | TREADPHA ---
DX: CHEST PAIN Date of Study: 11/19/2022 Ht: 5' 0 " Wt: 164 lb 15.903 oz Consulting Physician: REGINA MEDICATIONS: TYLENOL, NORVASC, PLAVIX, LOVENOX, FEOSOL, APRESOLINE, MELATONIN, ZOFRAN, PROTONIX, CRESTOR, ULTRAM HISTORY: 72 YEAR OLD COMPLAINTS OF CHEST PAIN. HISTORY OF CORONARY ARTERY DISEASE, HYPERTENSION, HYPERLIPIDEMIA, STENTS TIMES ONE, DENIES SMOKING, ALCOHOL, DRUG USE OR PREVIOUS HEART SURGERIES. PHYSICIAL EXAMINATION: RESTING B.P.: 132/77 RESTING H.R.: 76 RESTING EKG: NORMAL SINUS RHYTHM PROTOCOL: PHARMACOLOGIC EXERCISE TIME: 3:30 B.P. AT PEAK STRESS: 136/65 IMPRESSION: LEXISCAN INJECTED. CARDIOLITE GIVEN PER PROTOCOL. SEE NUCLEAR MEDICINE REPORT. NO SUPRAVENTRICULAR TACHYCARDIA, VENTRICULAR TACHYCARDIA, PREMATURE VENTRICULAR COMPLEXES, PREMATURE ATRIAL COMPLEXES NOTED. PATIENT COMPLAINTS OF NAUSEA AND VOMITING. DENIES CHEST PAIN OR SHORTNESS OF BREATH. NO ELECTROCARDIOGRAM CHANES WITH LEXISCAN.
== END 2022-11-19 20:20 | disposition left against medical advice (07) ==
LOC: ER 12:27 → ERHOLD 14:53 → 4TH 15:39
PROVIDERS: ADMIT Internal Medicine; ATTEND Internal Medicine
DX: R07.9 Chest pain, unspecified (principal); I25.10 Atherosclerotic heart disease of native coronary artery without angina pectoris; N17.9 Acute kidney failure, unspecified; D50.9 Iron deficiency anemia, unspecified; K21.9 Gastro-esophageal reflux disease without esophagitis; E78.5 Hyperlipidemia, unspecified; R11.0 Nausea; I10 Essential (primary) hypertension; N18.32 Chronic kidney disease, stage 3b; R51.9 Headache, unspecified; D69.6 Thrombocytopenia, unspecified; R73.09 Other abnormal glucose; R80.9 Proteinuria, unspecified; Z86.73 Personal history of transient ischemic attack (TIA), and cerebral infarction without residual deficits; Z91.09 Other allergy status, other than to drugs and biological substances; Z88.8 Allergy status to other drugs, medicaments and biological substances; Z53.29 Procedure and treatment not carried out because of patient's decision for other reasons; Z95.5 Presence of coronary angioplasty implant and graft; Z20.822 Contact with and (suspected) exposure to COVID-19
CPT/HCPCS: 93005; 93017; 93306; 85025 ×2; 81001; 80048 ×2; 36415; 83735 ×2; 84100; 85610; 80061; 85379; 80076; 84443; 83036; 84484 ×3; 84439; 83880 ×2; 87635; 87804 ×2; 71250; 71045; 93970; 78452; 99285; J2785; J1650; J2405 ×2; A9500; G0378

== ENCOUNTER → 2023-09-15 | Day surgery (SDC) | payer OTHER ==
--- NOTE | 2023-09-15 14:03 | RAD REPORT ---
EXAM DESCRIPTION: US Thyroid Para Parotid Gland CLINICAL HISTORY: E04.1 COMPARISON: Thyroid Para Parotid Gland dated 08/28/2023 TECHNIQUE: Limited sonographic grayscale and color flow images of the left thyroid lobe were obtain ed. FINDINGS: The upper pole left thyroid nodule in question today demonstrates some spongiform features , which were not readily apparent on the prior exam. It is stable in size, today measured at 1.3 x 0. 8 x 1.2 cm in, wider than tall in morphology, without suspicious calcifications. Given this appearance, it was decided to forego fine-needle aspiration/biopsy at this time. Continued follow-up in 12 months is again recommended, per the initial report. IMPRESSION: Stable left upper pole thyroid nodule, which given some spongiform features today, could potentially be down graded to TR 2 category. Continued sonographic follow-up in 12 months is recomme nded.
== END ==
LOC: FNA 09:11
PROVIDERS: ATTEND Internal Medicine
DX: E04.1 Nontoxic single thyroid nodule (principal); Z53.8 Procedure and treatment not carried out for other reasons
CPT/HCPCS: 76536

== ENCOUNTER 2024-06-21 11:38 | Observation (INO) | payer OTHER ==
[2024-06-21] MEDS ORDERED: ASPIRIN 81 MG CHEWABLE TABLET ONE (12:35)
[2024-06-21] MEDS ORDERED: NA CHLORIDE 0.9% 500 ML ONE (12:35)
[2024-06-21] MEDS ORDERED: FAMOTIDINE 20 MG/2 ML VIAL IV ONE (12:35)
[2024-06-21 12:40] LABS: Specific Gravity 1.007 (1.005-1.030); Sqamous Epithelial <5 /HPF (None Seen); Urine Bacteria None Seen /HPF (<20); Urine Bilirubin NEGATIVE (Negative); Urine Blood Negative (Negative); Urine Clarity Clear (Clear); Urine Color Colorless (Yellow); Urine Culture Reflex Order NOT NEEDED; Urine Glucose TRACE (Negative); Urine Ketones NEGATIVE (Negative); Urine Microscopic Reflex YN ORDER UMIC; Urine Nitrite NEGATIVE (Negative); Urine Protein TRACE (Negative); Urine RBC <5 /HPF (None Seen); Urine Urobilinogen Normal (Normal); Urine WBC <5 /HPF (<5)
[2024-06-21 12:52] LABS: Absolute Basophils 0.1 K/uL (0-0.5); Absolute Eosinophils 0.1 K/uL (0-0.5); Absolute Lymphocytes (CBC) 2.1 K/uL (0.7-4.9); Absolute Monocytes 0.5 K/uL (0.1-1.3); Absolute Neutrophil 3.6 K/uL (1.8-8.0); Basophils % 0.9 % (0-1.3); Eosinophils % 1.1 % (0-4.4); Hematocrit 39.2 % (36.0-45.0); Hemoglobin 13.6 g/dL (12.0-15.0); Lymphocytes % 33.3 % (15.3-44.8); MCH 28.9 pg (27.0-35.0); MCHC 34.7 g/dL (32.0-36.0); MCV 83.3 fL (80-100); MPV 9.9 fL (7.6-11.3); Monocytes % 8.2 % (3.3-12.3); Neutrophils % 56.5 % (41.7-73.7); Platelets 128 thou/uL (152-406); RBC Red Blood Cell Count 4.71 M/uL (3.86-4.86); Red Cell Distribution Width 14.1 % (12.1-15.2)
[2024-06-21 13:04] LABS: PT Prothrombin Time 12.5 SECONDS (10-13.0); Protime INR 1.1
--- NOTE | 2024-06-21 13:21 | RAD REPORT ---
EXAMINATION: ONE VIEW CHEST XR CLINICAL INDICATION: CHEST PAIN TECHNIQUE: Frontal chest projection is submitted. Examination is limited by patient positioning and t echnique. COMPARISON: 11/18/2022 FINDINGS: The lungs are well inflated and clear. The heart is upper limit of normal in size. No displaced fract ures identified. IMPRESSION: No acute intrathoracic abnormalities.
[2024-06-21 13:23] LABS: Albumin 3.7 g/dL (3.4-5.0); Albumin/Globulin Ratio 0.9 (1.1-1.8); Anion Gap 9.8 mEq/L (5.0-15.0); Bilirubin Direct 0.2 mg/dL (0-0.2); Bilirubin Indirect, Calculated 0.5 mg/dL (0.2-0.8); Bilirubin Total 0.7 mg/dL (0.2-1.0); Magnesium 1.4 mg/dL (1.6-2.4); Potassium 2.8 mEq/L (3.5-5.1); Protein, Total 7.7 g/dL (6.4-8.2); Troponin High Sensitivity 20.9 pg/mL (<58.9)
--- NOTE | 2024-06-21 15:01 | ER ---
Nurse's Notes [facility] Name: Laura Landaverde Age: 73 yrs Sex: Female : 1950 Arrival Date: 06/21/2024 Time: 11:38 Bed 5 Private MD: Diagnosis: Dizziness and giddiness;Essential (primary) hypertension;Hypokalemia;Hypomagnesemia;Chronic kidney disease, unspecified Presentation: 06/21 11:56 Chief complaint: Patient states: Dizziness "for a while", unable to complete MRI jl7 ordered the other day due to claustrophobia. Dizziness much worse today and feels like "my heart is vibrating when I get dizzy.". Coronavirus screen: At this time, the client does not indicate any symptoms associated with coronavirus-19. Ebola Screen: No symptoms or risks identified at this time. Initial Sepsis Screen: Does the patient meet any 2 criteria? No. Patient's initial sepsis screen is negative. Does the patient have a suspected source of infection? No. Patient's initial sepsis screen is negative. Risk Assessment: Do you want to hurt yourself or someone else? Patient reports no desire to harm self or others. Onset of symptoms is unknown. 11:56 Method Of Arrival: Ambulatory jl7 11:56 Acuity: MARK 2 jl7 Triage Assessment: 11:59 General: Appears in no apparent distress. uncomfortable, Behavior is calm, cooperative, jl7 appropriate for age. Pain: Denies pain. Cardiovascular: Patient's skin is warm and dry. Rhythm is regular. Historical: - Allergies: 11:59 Beta-Blockers (Beta-Adrenergic Blocking Agts); jl7 11:59 Iodine (Hives); jl7 - Home Meds: 11:59 amlodipine 10 mg oral tablet [Active]; pantoprazole 40 mg Oral TbEC 1 tab once daily jl7 for Gastroesophageal reflux [Active]; rosuvastatin 20 mg oral tablet [Active]; losartan 50 mg Oral tab 1 tab once daily [Active]; Iron CR Oral [Active]; - PMHx: 11:59 carcinoid Syndrome; neuroendocrine tumor; Hypertension; jl7 - Immunization history:: Adult Immunizations unknown. - Infectious Disease History:: Denies. - Social history:: Smoking status: Patient denies any tobacco usage or history of. - Family history:: not pertinent. Screenin:15 [facility] ED Fall Risk Assessment (Adult) History of falling in the last 3 months, bp including since admission No falls in past 3 months (0 pts) Confusion or Disorientation No (0 pts) Intoxicated or Sedated No (0 pts) Impaired Gait No (0 pts) Mobility Assist Device Used No (0 pt) Altered Elimination No (0 pt) Score/Fall Risk Level 0 - 2 = Low Risk Oriented to surroundings. Abuse screen: Denies threats or abuse. Denies injuries from another. Nutritional screening: No deficits noted. Tuberculosis screening: No symptoms or risk factors identified. Assessment: 12:05 General: Appears in no apparent distress. comfortable, Behavior is cooperative, me1 appropriate for age, anxious. General: Reports Dizziness "for a while", unable to complete MRI ordered the other day due to claustrophobia. Dizziness much worse today and feels like "my heart is vibrating when I get dizzy.". Pain: Complains of pain in chest Pain does not radiate. Pain currently is 3 out of 10 on a pain scale. Quality of pain is described as pounding or "vibrating" Pain began gradually, Is intermittent. Neuro: Level of Consciousness is awake, alert, obeys commands, Oriented to person, place, time, situation, Appropriate for age. Neuro: Reports dizziness. Cardiovascular: Reports chest pain, palpitations, Patient's skin is warm and dry. Respiratory: Airway is patent Respiratory effort is even, unlabored, Respiratory pattern is regular, symmetrical. GI: No signs and/or symptoms were reported involving the gastrointestinal system. : No signs and/or symptoms were reported regarding the genitourinary system. EENT: No signs and/or symptoms were reported regarding the EENT system. Derm: Skin is intact, is healthy with good turgor, Skin is pink, warm \\T\\ dry. Musculoskeletal: No signs and/or symptoms reported regarding the musculoskeletal system. 12:15 General: Appears in no apparent distress. comfortable, Behavior is cooperative, bp appropriate for age, anxious. 13:33 Reassessment: No changes from previously documented assessment. Patient is alert, bp oriented x 3, equal unlabored respirations, skin warm/dry/pink. Vital Signs: 11:56 BP 213 / 104; Pulse 79; Resp 18; Temp 97.9; Pulse Ox 100% ; Weight 74.84 kg; Height 5 jl7 ft. 0 in. ; Pain 0/10; 12:30 BP 173 / 91; Pulse 72; Resp 15; Pulse Ox 100% ; me1 13:33 BP 179 / 97; Pulse 67; Resp 14; Pulse Ox 100% ; bp 14:30 BP 187 / 92; Pulse 75; Resp 14; Pulse Ox 98% ; me1 15:00 BP 164 / 86; Pulse 70; Resp 16; Pulse Ox 98% ; me1 16:00 BP 182 / 90; Pulse 72; Resp 18; Pulse Ox 100% ; me1 17:00 BP 174 / 86; Pulse 78; Resp 20; Pulse Ox 100% ; me1 18:00 BP 165 / 79; Pulse 71; Resp 19; Pulse Ox 98% ; me1 11:56 Body Mass Index 32.22 (74.84 kg, 152.4 cm) 7 11:56 Pain Scale: Adult [facility] ED Course: 11:41 Patient arrived in ED. al6 11:49 Deb Valente, RN is Primary Nurse. iw 11:53 Ezra Guallpa MD is Attending Physician. [facility] 11:59 Triage completed. 7 11:59 Arm band placed on right wrist. 7 12:05 Provided Education on: POC. Verbalized understanding.. me1 12:05 No provider procedures requiring assistance completed. Patient maintains SpO2 in1 saturation greater than 95% on room air. 12:15 Patient has correct armband on for positive identification. Client placed on continuous bp cardiac and pulse oximetry monitoring. NIBP monitoring applied. campus monitor on. Pulse ox on. NIBP on. 12:25 Initial lab(s) drawn, by in, sent to lab. Inserted saline lock: 22 gauge in right bp antecubital area, using aseptic technique. Blood collected. Flushed with 10 mL NS. 13:12 XRAY Chest (1 view) In Process Unspecified. EDMS 14:58 Silviano Champagne is Hospitalizing Provider. [facility] 16:00 Patient admitted, IV remains in place. me1 19:32 Primary Nurse role handed off by Deb Valente, RN rv1 Administered Medications: 12:41 Drug: Aspirin PO Chewable Tablet 162 mg PO once Route: PO; me1 13:54 Follow up: Response: No adverse reaction me1 12:42 Drug: NS 0.9% IV 500 ml 500 ml IV at 1 bolus once; to be given as a bolus over 30 me1 minutes Volume: 500 ml; Route: IV; Rate: 1 bolus; Site: right antecubital; 14:47 Follow up: Response: No adverse reaction; IV Status: Completed infusion; IV Intake: me1 500ml 12:42 Drug: Famotidine IVP 20 mg IVP once; dilute with 10 mL 0.9% NaCl; give over 2 minutes me1 Route: IVP; Site: right antecubital; 13:54 Follow up: Response: No adverse reaction me1 15:18 Drug: Magnesium Sulfate IVPB 2 grams IVPB once over 2 hrs Route: IVPB; Infused Over: 2 me1 hrs; Site: right antecubital; 17:18 Follow up: Response: No adverse reaction; IV Status: Completed infusion me1 15:18 Drug: Potassium PO Effervescent Tablet 50 mEq PO once; dissolve in 4 ounces of water or me1 juice Route: PO; 16:16 Follow up: Response: No adverse reaction me1 15:18 Drug: Enoxaparin Sub-Q 70 mg Sub-Q once Route: Sub-Q; Site: abdomen; me1 16:17 Follow up: Response: No adverse reaction me1 16:17 Drug: Potassium PO Effervescent Tablet 50 mEq PO once; dissolve in 4 ounces of water or me1 juice in 1 hour post first Route: PO; 18:06 Follow up: Response: No adverse reaction me1 Medication: 12:15 VIS not applicable for this client. bp Intake: 14:47 IV: 500ml; Total: 500ml. me1 Outcome: 15:00 Decision to Hospitalize by Provider. jose 16:00 Admitted to ER Hold. Please see [facility] for further documentation. me1 16:00 Condition: stable 16:00 Instructed on the need for admit, 22:09 Patient left the ED. dd2 Signatures: Dispatcher [employer] Ezra Dave MD MD cha Williams, Irene, RN RN iw Leal, Jahala, RN RN jl7 Davy Heath RN RN bp Villegas, Rebecca rv1 Azucena Nascimento RN RN me1 KHADAR SHARPE RN RN dd2 Laura Shaffer6 Corrections: (The following items were deleted from the chart) 18:10 11:56 Chief complaint: Patient states: Dizziness "for a while", unable to complete MRI me1 ordered the other day due to claustrophobia. Dizziness much worse today and feels like "my heart is vibrating when I get dizzy." jl7 18:14 18:13 Patient admitted, IV remains in place. me1 me1
--- NOTE | 2024-06-21 15:01 | EDPHYS ---
Physician Documentation [facility] Name: Laura Landaverde Age: 73 yrs Sex: Female : 1950 Arrival Date: 06/21/2024 Time: 11:38 Bed 5 Private MD: ANGUS Physician Ezra Guallpa HPI: 06/21 14:53 This 73 yrs old Female presents to ER via Ambulatory with complaints of jose Dizziness, Chest Pain. 14:53 The patient presents with dizziness, generalized weakness, lightheadedness. Onset: The jose symptoms/episode began/occurred today. Context: occurred at home. Modifying factors: The symptoms are alleviated by nothing, the symptoms are aggravated by nothing. Associated signs and symptoms: Pertinent positives: chest pain. Severity of symptoms: At their worst the symptoms were mild moderate in the emergency department the symptoms are unchanged. Patient's baseline: Neuro: alert and fully oriented. The patient has experienced similar episodes in the past, multiple times. Historical: - Allergies: 11:59 Beta-Blockers (Beta-Adrenergic Blocking Agts); jl7 11:59 Iodine (Hives); jl7 - Home Meds: 11:59 amlodipine 10 mg oral tablet [Active]; pantoprazole 40 mg Oral TbEC 1 tab once daily jl7 for Gastroesophageal reflux [Active]; rosuvastatin 20 mg oral tablet [Active]; losartan 50 mg Oral tab 1 tab once daily [Active]; Iron CR Oral [Active]; - PMHx: 11:59 carcinoid Syndrome; neuroendocrine tumor; Hypertension; jl7 - Immunization history:: Adult Immunizations unknown. - Infectious Disease History:: Denies. - Social history:: Smoking status: Patient denies any tobacco usage or history of. - Family history:: not pertinent. ROS: 14:53 Constitutional: Negative for fever, chills, and weight loss, Eyes: Negative for injury, jose pain, redness, and discharge, ENT: Negative for injury, pain, and discharge, Neck: Negative for injury, pain, and swelling, Respiratory: Negative for shortness of breath, cough, wheezing, and pleuritic chest pain, Abdomen/GI: Negative for abdominal pain, nausea, vomiting, diarrhea, and constipation, Back: Negative for injury and pain, : Negative for injury, bleeding, discharge, and swelling, MS/Extremity: Negative for injury and deformity, Skin: Negative for injury, rash, and discoloration, Psych: Negative for depression, anxiety, suicide ideation, homicidal ideation, and hallucinations, Allergy/Immunology: Negative for hives, rash, and allergies, Endocrine: Negative for neck swelling, polydipsia, polyuria, polyphagia, and marked weight changes, Hematologic/Lymphatic: Negative for swollen nodes, abnormal bleeding, and unusual bruising, 14:53 Cardiovascular: Positive for chest pain, 14:53 Neuro: Positive for dizziness, Exam: 14:53 Constitutional: This is a well developed, well nourished patient who is awake, alert, jose and in no acute distress. Head/Face: Normocephalic, atraumatic. Eyes: Pupils equal round and reactive to light, extra-ocular motions intact. Lids and lashes normal. Conjunctiva and sclera are non-icteric and not injected. Cornea within normal limits. Periorbital areas with no swelling, redness, or edema. ENT: Nares patent. No nasal discharge, no septal abnormalities noted. Tympanic membranes are normal and external auditory canals are clear. Oropharynx with no redness, swelling, or masses, exudates, or evidence of obstruction, uvula midline. Mucous membranes moist. Neck: Trachea midline, no thyromegaly or masses palpated, and no cervical lymphadenopathy. Supple, full range of motion without nuchal rigidity, or vertebral point tenderness. No Meningismus. Chest/axilla: Normal chest wall appearance and motion. Nontender with no deformity. No lesions are appreciated. Cardiovascular: Regular rate and rhythm with a normal S1 and S2. No gallops, murmurs, or rubs. Normal PMI, no JVD. No pulse deficits. Respiratory: Lungs have equal breath sounds bilaterally, clear to auscultation and percussion. No rales, rhonchi or wheezes noted. No increased work of breathing, no retractions or nasal flaring. Abdomen/GI: Soft, non-tender, with normal bowel sounds. No distension or tympany. No guarding or rebound. No evidence of tenderness throughout. Back: No spinal tenderness. No costovertebral tenderness. Full range of motion. Female : Normal external genitalia. Skin: Warm, dry with normal turgor. Normal color with no rashes, no lesions, and no evidence of cellulitis. MS/ Extremity: Pulses equal, no cyanosis. Neurovascular intact. Full, normal range of motion., bilateral aka Neuro: Awake and alert, GCS 15, oriented to person, place, time, and situation. Cranial nerves II-XII grossly intact. Motor strength 5/5 in all extremities. Sensory grossly intact. Cerebellar exam normal. Normal gait. Psych: Awake, alert, with orientation to person, place and time. Behavior, mood, and affect are within normal limits. 14:53 ECG was reviewed by the Attending Physician. Vital Signs: 11:56 BP 213 / 104; Pulse 79; Resp 18; Temp 97.9; Pulse Ox 100% ; Weight 74.84 kg; Height 5 jl7 ft. 0 in. ; Pain 0/10; 12:30 BP 173 / 91; Pulse 72; Resp 15; Pulse Ox 100% ; me1 13:33 BP 179 / 97; Pulse 67; Resp 14; Pulse Ox 100% ; bp 14:30 BP 187 / 92; Pulse 75; Resp 14; Pulse Ox 98% ; me1 15:00 BP 164 / 86; Pulse 70; Resp 16; Pulse Ox 98% ; me1 16:00 BP 182 / 90; Pulse 72; Resp 18; Pulse Ox 100% ; me1 17:00 BP 174 / 86; Pulse 78; Resp 20; Pulse Ox 100% ; me1 18:00 BP 165 / 79; Pulse 71; Resp 19; Pulse Ox 98% ; me1 11:56 Body Mass Index 32.22 (74.84 kg, 152.4 cm) jl7 11:56 Pain Scale: Adult jl7 MDM: 11:53 Medical Screening Exam initiated 06/21 11:55 Order name: Basic Metabolic Panel; Complete Time: 14:51 06/21 11:55 Order name: CBC with Diff; Complete Time: 14:51 06/21 11:55 Order name: LFT's; Complete Time: 14:51 jose 06/21 11:55 Order name: Magnesium; Complete Time: 14:51 06/21 11:55 Order name: NT PRO-BNP; Complete Time: 14:51 06/21 11:55 Order name: PT-INR; Complete Time: 14:51 06/21 11:55 Order name: Troponin HS; Complete Time: 14:51 06/21 11:55 Order name: Lipase; Complete Time: 14:51 06/21 11:55 Order name: Urinalysis w/ reflexes; Complete Time: 14:51 jose 06/21 15:46 Order name: T4 Free EDMS 06/21 15:46 Order name: Basic Metabolic Panel EDMS 06/21 15:46 Order name: Basic Metabolic Panel EDMS 06/21 15:46 Order name: Basic Metabolic Panel EDMS 06/21 15:46 Order name: Basic Metabolic Panel EDMS 06/21 15:46 Order name: Basic Metabolic Panel EDMS 06/21 15:46 Order name: Basic Metabolic Panel EDMS 06/21 15:46 Order name: Thyroid Stimulating Hormone EDMS 06/21 15:46 Order name: CBC with Automated Diff EDMS 06/21 15:46 Order name: CBC with Automated Diff EDMS 06/21 15:46 Order name: CBC with Automated Diff EDMS 06/21 15:46 Order name: CBC with Automated Diff EDMS 06/21 15:46 Order name: Urinalysis w/ reflexes EDMS 06/21 15:47 Order name: CBC with Automated Diff EDMS 06/21 15:47 Order name: CBC with Automated Diff EDMS 06/21 15:47 Order name: Lipid Profile EDMS 06/21 15:47 Order name: Lipid Profile EDMS 06/21 15:47 Order name: Magnesium EDMS 06/21 15:47 Order name: Magnesium EDMS 06/21 15:47 Order name: Magnesium EDMS 06/21 15:47 Order name: Magnesium EDMS 06/21 15:47 Order name: Magnesium EDMS 06/21 15:47 Order name: Magnesium EDMS 06/21 15:47 Order name: Phosphorus EDMS 06/21 15:47 Order name: Phosphorus EDMS 06/21 15:47 Order name: Phosphorus EDMS 06/21 15:47 Order name: Phosphorus EDMS 06/21 15:47 Order name: Phosphorus EDMS 06/21 15:47 Order name: Phosphorus EDMS 06/21 15:47 Order name: Troponin High Sensitivity EDMS 06/21 15:47 Order name: Troponin High Sensitivity EDMS 06/21 15:47 Order name: Troponin High Sensitivity EDMS 06/21 11:55 Order name: XRAY Chest (1 view); Complete Time: 14:51 jose 06/21 11:55 Order name: Cardiac monitoring; Complete Time: 12:25 jose 06/21 11:55 Order name: EKG - Nurse/Tech; Complete Time: 12:25 [facility] 06/21 11:55 Order name: IV Saline Lock; Complete Time: 12: [facility] 06/21 11:55 Order name: Labs collected and sent; Complete Time: 12: [facility] 06/21 11:55 Order name: O2 Per Protocol; Complete Time: 12:25 [facility] 06/21 11:55 Order name: O2 Sat Monitoring; Complete Time: 12: [facility] EC:53 Rate is 79 beats/min. Rhythm is regular. QRS Swisher is Normal. TN interval is normal. QRS jose interval is normal. QT interval is prolonged at 477 msec. No Q waves. T waves are Normal. No ST changes noted. Clinical impression: NSR w/ Non-specific ST/T Changes and No evidence of ischemia. Interpreted by me. Reviewed by me. Administered Medications: 12:41 Drug: Aspirin PO Chewable Tablet 162 mg PO once Route: PO; me1 13:54 Follow up: Response: No adverse reaction me1 12:42 Drug: NS 0.9% IV 500 ml 500 ml IV at 1 bolus once; to be given as a bolus over 30 me1 minutes Volume: 500 ml; Route: IV; Rate: 1 bolus; Site: right antecubital; 14:47 Follow up: Response: No adverse reaction; IV Status: Completed infusion; IV Intake: me1 500ml 12:42 Drug: Famotidine IVP 20 mg IVP once; dilute with 10 mL 0.9% NaCl; give over 2 minutes me1 Route: IVP; Site: right antecubital; 13:54 Follow up: Response: No adverse reaction me1 15:18 Drug: Magnesium Sulfate IVPB 2 grams IVPB once over 2 hrs Route: IVPB; Infused Over: 2 me1 hrs; Site: right antecubital; 17:18 Follow up: Response: No adverse reaction; IV Status: Completed infusion me1 15:18 Drug: Potassium PO Effervescent Tablet 50 mEq PO once; dissolve in 4 ounces of water or me1 juice Route: PO; 16:16 Follow up: Response: No adverse reaction me1 15:18 Drug: Enoxaparin Sub-Q 70 mg Sub-Q once Route: Sub-Q; Site: abdomen; me1 16:17 Follow up: Response: No adverse reaction me1 16:17 Drug: Potassium PO Effervescent Tablet 50 mEq PO once; dissolve in 4 ounces of water or me1 juice in 1 hour post first Route: PO; 18:06 Follow up: Response: No adverse reaction me1 Disposition Summary: 06/21/24 15:00 Hospitalization Ordered Notes: Hospitalization Status: Observation jose Provider: Silviano Champagne cha Condition: Fair jose Problem: new jose Symptoms: have improved jose Bed/Room Type: Standard jose Location: Telemetry/MedSurg (observation)(06/21/24 20:15) rv1 Room Assignment: [facility](06/21/24 20:20) Diagnosis - Dizziness and giddiness jose - Essential (primary) hypertension jose - Hypokalemia jose - Hypomagnesemia jose - Chronic kidney disease, unspecified jose Forms: - Medication Reconciliation Form jose - SBAR form jose - Leadership Thank You Letter jose Signatures: Dispatcher [employer] EDEzra Rice MD MD cha Garcia, Cindy RN RN Shane Tao RN RN jl7 Diana Mccormack RN RN kb3 Aurora Vasquez rv1 Azucena Nascimento RN RN me1 Corrections: (The following items were deleted from the chart) 15:57 15:00 Telemetry/MedSurg (observation) jose kb3 15:57 15:00 jose kb3 20:15 15:57 BR ER HOLD kb3 rv1 20:15 15:57 ERHOLD- kb3 rv1 20:20 20:15 430 rv1 cg
[2024-06-21] MEDS ORDERED: ENOXAPARIN 80 MG/0.8 ML SQ ONE (15:11)
[2024-06-21] MEDS ORDERED: Magnesium Sulfate 2gm IVPB 2 G/50 ML BAG IV ONE (15:12)
[2024-06-21] MEDS ORDERED: POTASSIUM 25 MEQ EFFERV TAB ONE (15:12)
[2024-06-21] MEDS ORDERED: ACETAMINOPHEN 325 MG TABLET PO PRN (15:37)
--- NOTE | 2024-06-21 16:01 | P.HP ---
Certification for Inpatient Patient admitted to: Observation With expected LOS: <2 Midnights Patient will require the following post-hospital care: None Practitioner: I am a practitioner with admitting privileges, knowledge of patient current condition, hospital course, and medical plan of care. Services: Services provided to patient in accordance with Admission requirements found in Title 42 Section 412.3 of the Code of Federal Regulations Patient History Date of Service: 06/21/24 Reason for admission: Chest tightness r/o [place] History of Present Illness: Laura Landaverde is a 73 year old female with Pmhx carcinoid Syndrome; neuroendocrine tumor; Hypertension, CAD s/p stent x 1 who presents to the ED with chest tightness and dizziness x 1day. She reports seeing Dr. Hunter last year after her PCI and is now experiencing a similar chest tightness. Troponin and EKG are negative. Laboratory evaluation significant for platelets 128, potassium 2.8, B UN/creatinine 33/2.16, GFR 24, serum glucose 169, magnesium 1.4. Chest x-ray reports "No acute intrathoracic abnormalities. " Laura will be admitted to hospitalist service for further evaluation and treatment of chest tightness, Cardiology has been consulted Allergies Iodinated Contrast Media Allergy (Verified 12/09/22 12:39) Itching/Hives/Rash iodine Allergy (Verified 12/09/22 12:39) Unknown Beta-Blockers (Beta-Ad Adverse Reaction (Uncoded 12/09/22 12:39) Unknown Home Medications: Pantoprazole [Protonix Tab*] 40 mg PO DAILY 08/06/14 Amlodipine [Norvasc] 10 mg PO DAILY 11/18/22 Aspirin Chewable [Aspirin Chewable*] 81 mg PO DAILY 11/18/22 Ferrous Sulfate [Iron] 65 mg PO DAILY 11/18/22 Losartan Potassium [Cozaar] 100 mg PO DAILY 11/18/22 Rosuvastatin [Crestor*] 20 mg PO BEDTIME 11/18/22 Cholecalciferol (Vitamin D3) [Vitamin D3] 1,000 unit PO DAILY 06/21/24 Hydralazine [Apresoline] 25 mg PO DAILY 06/21/24 - Past Medical/Surgical History Diabetic: No -: HTN -: GERD -: FLACO -: HLD -: Neuroendocrine tumor -: CAD -: CVA -: CKD III (Dr. Franco/ Dr. Daily) -: PreDM -: Hysterectomy -: -: Heart stents -: appendectomy -: cholecystectomy - Family History Father -: Hypertension Mother -: Hypertension, Stroke Brother -: Hypertension, Diabetes - Social History Smoking Status: Never smoker Alcohol use: No CD- Drugs: No Caffeine use: Yes Review of Systems Other: Per HPI Physical Examination - Physical Exam General: Alert, In no apparent distress, Oriented x3 HEENT: Atraumatic, Normocephalic, PERRLA Neck: Supple, 2+ carotid pulse no bruit Respiratory: Clear to auscultation bilaterally, Normal air movement Cardiovascular: Normal pulses, Regular rate/rhythm Capillary refill: <2 Seconds Gastrointestinal: Normal bowel sounds, Soft and benign Musculoskeletal: No clubbing Integumentary: No rashes Neurological: Normal speech, Normal tone - Studies Laboratory Data (last 24 hrs) 06/21/24 06/21/24 06/21/24 12:24 12:24 12:24 WBC 6.30 Hgb 13.6 Hct 39.2 Plt Count 128 L PT 12.5 INR 1.10 Sodium 140 Potassium 2.8 L BUN 33 H Creatinine 2.16 H Glucose 169 H Magnesium 1.4 L Total Bilirubin 0.7 AST 11 L ALT 19 Alkaline Phosphatase 98 Lipase 48 Assessment and Plan - Plan Assessment and plan Chest tightness rule out [place] CAD s/p stent x 1 - EKG: No obvious ST segment changes - troponin 20.9, Serial pending - Ordered transthoracic echocardiogram - chest x-ray report "No acute intrathoracic abnormalities. " - Consult Cardiology - recommendations appreciated - S/P aspirin 162 mg PO x 1 in ED - Start daily baby aspirin and statin - Symptom control with PRN acetaminophen, nitroglycerin, morphine - continuous telemetry - TSH/FreeT4, A1C, lipid panel pending Stage III chronic kidney disease -Monitor in AM labs Hypokalemia -reports diarrhea from cancer treatment -replace PRN carcinoid Syndrome neuroendocrine tumor Hypertension -Continue home medication DVT PPx heparin DNR LOS 24-hour OBS Discharge Plan: Home Plan to discharge in: 24 Hours - Advance Directives Does patient have a Living Will: No Does patient have a Durable POA for Healthcare: No
[2024-06-21] MEDS: HEPARIN 5000 UNIT/ML 1 ML VIAL SQ SCH (17:00)
[2024-06-21] MEDS ORDERED: HEPARIN 5000 UNIT/ML 1 ML VIAL ONE (17:49)
[2024-06-21 18:24] VITALS: BMI 32.2
[2024-06-21] MEDS: ATORVASTATIN 40 MG TAB PO SCH (22:27)
[2024-06-21 22:33] VITALS: O2SAT 98
[2024-06-21] MEDS: MELATONIN 5 MG TABLET PO SCH (23:47)
[2024-06-22 07:08] LABS: Absolute Basophils 0.1 K/uL (0-0.5); Absolute Eosinophils 0.1 K/uL (0-0.5); Absolute Lymphocytes (CBC) 1.8 K/uL (0.7-4.9); Absolute Monocytes 0.5 K/uL (0.1-1.3); Absolute Neutrophil 3.4 K/uL (1.8-8.0); Basophils % 1.3 % (0-1.3); Eosinophils % 1.5 % (0-4.4); Hematocrit 36.6 % (36.0-45.0); Hemoglobin 12.4 g/dL (12.0-15.0); Lymphocytes % 30.3 % (15.3-44.8); MCH 28.4 pg (27.0-35.0); MCHC 33.8 g/dL (32.0-36.0); MCV 83.8 fL (80-100); MPV 9.8 fL (7.6-11.3); Monocytes % 9.2 % (3.3-12.3); Neutrophils % 57.7 % (41.7-73.7); Nucleated Red Blood Cells % 0.1 % (0-0); Platelets 111 thou/uL (152-406); RBC Red Blood Cell Count 4.37 M/uL (3.86-4.86); Red Cell Distribution Width 14.1 % (12.1-15.2)
[2024-06-22 07:32] LABS: Magnesium 2.1 mg/dL (1.6-2.4); Phosphorus 2.6 mg/dL (2.5-4.9); Thyroid Stimulating Hormone 2.4 uIU/mL (0.358-3.740)
[2024-06-22] MEDS: ASPIRIN EC 81 MG TAB PO SCH (08:22)
--- NOTE | 2024-06-22 09:48 | P.CNS ---
Date of Consult: 06/22/24 Chief Complaint: Chest tightness r/o [place] History of Present Illness: Patient with PMH of HTN, CAD, LAD stent and moderate RCA disease, presented with palpitations, dizzy spells, also report one episode of chest pain yesterday that last few minutes associated with the palpitations, denies any other cardiac symptoms. Allergies Iodinated Contrast Media Allergy (Verified 12/09/22 12:39) Itching/Hives/Rash iodine Allergy (Verified 12/09/22 12:39) Unknown Beta-Blockers (Beta-Ad Adverse Reaction (Uncoded 12/09/22 12:39) Unknown Home medications list reviewed: Yes Home Medications: Pantoprazole [Protonix Tab*] 40 mg PO DAILY 08/06/14 Amlodipine [Norvasc] 10 mg PO DAILY 11/18/22 Aspirin Chewable [Aspirin Chewable*] 81 mg PO DAILY 11/18/22 Ferrous Sulfate [Iron] 65 mg PO DAILY 11/18/22 Losartan Potassium [Cozaar] 100 mg PO DAILY 11/18/22 Rosuvastatin [Crestor*] 20 mg PO BEDTIME 11/18/22 Cholecalciferol (Vitamin D3) [Vitamin D3] 1,000 unit PO DAILY 06/21/24 Hydralazine [Apresoline] 25 mg PO DAILY 06/21/24 - Past Medical/Surgical History Diabetic: No -: HTN -: GERD -: FLACO -: HLD -: Neuroendocrine tumor -: CAD -: CVA -: CKD III (Dr. Franco/ Dr. Daily) -: PreDM -: Hysterectomy -: -: Heart stents -: appendectomy -: cholecystectomy - Family History Father Medical History: Hypertension Mother Medical History: Hypertension, Stroke Brother Medical History: Hypertension, Diabetes - Social History Smoking Status: Never smoker Alcohol use: No CD- Drugs: No Caffeine use: Yes Place of Residence: Home Review of Systems 10-point ROS is otherwise unremarkable Physical Examination Temp Pulse Resp BP Pulse Ox 97.5 F 63 18 140/81 96 06/22/24 08:00 06/22/24 08:00 06/22/24 08:00 06/22/24 08:00 06/22/24 08:00 General: Alert, In no apparent distress HEENT: Atraumatic, PERRLA, Mucous membr. moist/pink, EOMI, Sclerae nonicteric Neck: Supple, 2+ carotid pulse no bruit, No LAD, Without JVD or thyroid abnormality Respiratory: Clear to auscultation bilaterally, Normal air movement Cardiovascular: Regular rate/rhythm, Normal S1 S2 Gastrointestinal: Normal bowel sounds, No tenderness Musculoskeletal: No tenderness Integumentary: No rashes Neurological: Normal gait, Normal speech, Normal tone, Normal affect Lymphatics: No axilla or inguinal lymphadenopathy Laboratory Data (last 24 hrs) 06/21/24 06/21/24 06/21/24 12:24 12:24 12:24 WBC 6.30 Hgb 13.6 Hct 39.2 Plt Count 128 L PT 12.5 INR 1.10 Sodium 140 Potassium 2.8 L BUN 33 H Creatinine 2.16 H Glucose 169 H Magnesium 1.4 L Total Bilirubin 0.7 AST 11 L ALT 19 Alkaline Phosphatase 98 Lipase 48 - Problems (1) Palpitations Current Visit: Yes Status: Acute Plan: start patient on Lopressor 25 mg po BID Continue to monitor on tele and then outpatient event monitor is needed. (2) HTN (hypertension) Current Visit: Yes Status: Acute Plan: continue home medications of losartan, Norvasc add lopressor as above. outpatient follow up with cardiology (3) Chest pain Onset Date: 06/28/15 Current Visit: No Status: Acute Plan: troponin are negative, explained to patient that she got LAD stent and moderate RCA disease, given her option of coronary angiogram but she do not want it at this time as her main concern is the palpitations, the near syncope episodes no further inpatient cardiac work up needed. follow up with her supervisor packing as outpatient ([facility]) Cardiology will sign off, please call with any questions.
[2024-06-22] MEDS: FLU (Fluarix Triv) TS24-25(6MOS UP)/PF 45 MCG/0.5 ML Syringe IM ONE (09:57)
[2024-06-22] MEDS: PNEUMOCOCCAL VACCINE 0.5 ML IMVAC ONE (09:57)
--- NOTE | 2024-06-22 11:02 | P.DS ---
Admission Date: 06/21/24 Discharge Date: 06/22/24 Disposition: ROUTINE DISCHARGE Discharge Condition: GOOD Reason for Admission: Chest tightness r/o [place] Brief History of Present Illness: Diagnosis Chest tightness rule out [place] CAD s/p stent x 1 Stage III chronic kidney disease Hypokalemia carcinoid Syndrome neuroendocrine tumor Hypertension HPI 06/21/24 Laura Landaverde is a 73 year old female with Pmhx carcinoid Syndrome; neuroendocrine tumor; Hypertension, CAD s/p stent x 1 who presents to the ED with chest tightness and dizziness x 1day. She reports seeing Dr. Hunter last year after her PCI and is now experiencing a similar chest tightness. Troponin and EKG are negative. Laboratory evaluation significant for platelets 128, potassium 2.8, BUN/creatinine 33/2.16, GFR 24, serum glucose 169, magnesium 1.4. Chest x-ray reports "No acute intrathoracic abnormalities. 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 " Administered daily baby aspirin and statin continuous telemetry with no acute events Risk factors evaluated TSH/FreeT4 and lipid panel WNL, A1C 6.9 Stage III chronic kidney disease-Improved function, follow up with storage management architect Hypokalemia-resolved carcinoid Syndrome neuroendocrine tumor Hypertension Continued home medication On 06/22/24, Laura was seen on morning rounds with stable vital signs and chest tightness resolved. Dr. Walden evaluated and has cleared her for discharge and follow up with her university administrator. Physical Exam General: Alert and Oriented x3, NAD HEENT: Atraumatic, Normocephalic, PERRLA Neck: Supple, 2+ carotid pulse no bruit Respiratory: Clear BBS, Normal air movement, on RA Cardiovascular: Normal pulses, Regular rate/rhythm Capillary refill: <2 Seconds Gastrointestinal: Normal bowel sounds, Soft on palpation Musculoskeletal: No clubbing Integumentary: No rashes Neurological: Normal speech, Normal tone Vital Signs/Physical Exam: Temp Pulse Resp BP Pulse Ox 97.5 F 63 18 140/81 96 06/22/24 08:00 06/22/24 08:00 06/22/24 08:00 06/22/24 08:00 06/22/24 08:00 Laboratory Data at Discharge: WBC 5.90 thou/uL (4.3-10.9) 06/22/24 06:52 Hgb 12.4 g/dL (12.0-15.0) D 06/22/24 06:52 Hct 36.6 % (36.0-45.0) 06/22/24 06:52 Plt Count 111 thou/uL (152-406) L 06/22/24 06:52 PT 12.5 SECONDS (10-13.0) 06/21/24 12:24 INR 1.10 06/21/24 12:24 Sodium 142 mEq/L (136-145) 06/22/24 06:52 Potassium 4.0 mEq/L (3.5-5.1) D 06/22/24 06:52 BUN 25 mg/dL (7-18) H 06/22/24 06:52 Creatinine 1.79 mg/dL (0.55-1.02) H 06/22/24 06:52 Glucose 170 mg/dL (74-106) H 06/22/24 06:52 Phosphorus 2.6 mg/dL (2.5-4.9) 06/22/24 06:52 Magnesium 2.1 mg/dL (1.6-2.4) 06/22/24 06:52 Total Bilirubin 0.7 mg/dL (0.2-1.0) 06/21/24 12:24 AST 11 U/L (15-37) L 06/21/24 12:24 ALT 19 U/L (13-56) 06/21/24 12:24 Alkaline Phosphatase 98 U/L (45-117) 06/21/24 12:24 Triglycerides 87 mg/dL (<150) 06/22/24 06:52 Cholesterol 116 mg/dL (<200) 06/22/24 06:52 HDL Cholesterol 65 mg/dL (40-60) H 06/22/24 06:52 Cholesterol/HDL Ratio 1.78 06/22/24 06:52 Lipase 48 U/L (13-75) 06/21/24 12:24 Home Medications: Pantoprazole [Protonix Tab*] 40 mg PO DAILY 08/06/14 Amlodipine [Norvasc*] 10 mg PO DAILY 11/18/22 Aspirin Chewable [Aspirin Chewable*] 81 mg PO DAILY 11/18/22 Ferrous Sulfate [Iron] 65 mg PO DAILY 11/18/22 Losartan Potassium [Cozaar] 100 mg PO DAILY 11/18/22 Rosuvastatin [Crestor*] 20 mg PO BEDTIME 11/18/22 Cholecalciferol (Vitamin D3) [Vitamin D3] 1,000 unit PO DAILY 06/21/24 Hydralazine [Apresoline*] 25 mg PO DAILY 06/21/24 Atorvastatin Calcium [Lipitor] 40 mg PO BEDTIME tab 06/22/24 Physician Discharge Instructions: 1. Please call and schedule a follow-up appointment with your PCP in 3-5 days - Please follow-up with your PCP for medication refills/adjustments 2. Please call and schedule a follow-up appointment with Gastroenterology in 3-5 days - carcinoid syndrome likely 3. Continue regular diet 4. activity restrictions fall precautions 5. Return to the ED if symptoms worsen [employer] Associate Attorney: ML Hdez [phone]. Expect a call within 1-2 business days from discharge. Call with questions or concerns. Alternate: ML Peterson [phone]. Diet: Regular Activity: Fall precautions Followup: Leeroy Floyd MD [Primary Care Provider] - 1-2 Weeks Andrea Campos MD [ASSOCIATE-ACTIVE - CAN ADMIT] - 1-2 Weeks
--- NOTE | 2024-06-22 11:44 | ECHO ---
HEIGHT: 5 ft 0 in WEIGHT: 164 lb 15.903 oz DATE OF STUDY: 06/22/[address]: Germaine Davidson NP 2-DIMENSIONAL: YES M.MODE: YES DOPPLER: YES COLOR FLOW: YES TDS: PORTABLE: YES DEFINITY: BUBBLE STUDY: DIAGNOSIS: CHEST TIGHTNESS CARDIAC HISTORY: CATHERIZATION: YES SURGERY: PROSTHETIC VALVE: PACEMAKER: MEASUREMENTS (cm) DIASTOLIC (NORMALS) SYSTOLIC (NORMALS) IVSd 1.0 (0.6-1.2) LA Diam 3.0 (1.9-4.0) LVEF 60-65% LVIDd 3.7 (3.5-5.7) LVIDs 2.4 (2.0-3.5) %FS 34% LVPWd 1.3 (0.6-1.2) Ao Diam 2.6 (2.0-3.7) 2 DIMENSIONAL ASSESSMENT: RIGHT ATRIUM: NORMAL LEFT ATRIUM: NORMAL RIGHT VENTRICLE: NORMAL LEFT VENTRICLE: NORMAL TRICUSPID VALVE: MILD TRICUSPID REGURGITATION MITRAL VALVE: MILD MITRAL ANNULAR CALCIFICATION PULMONIC VALVE: NORMAL AORTIC VALVE: NORMAL PERICARDIAL EFFUSION: NONE AORTIC ROOT: NORMAL LEFT VENTRICULAR WALL MOTION: NORMAL DOPPLER/COLOR FLOW: GRADE I DIASTOLIC DYSFUNCTION COMMENTS: 1. NORMAL LEFT VENTRICULAR SYSTOLIC FUNCTION, EJECTION FRACTION 60-65%, NORMAL WALL MOTION 2. GRADE I DIASTOLIC DYSFUNCTION 3. NORMAL FILLING PRESSURE TECHNOLOGIST: CARMELLA SYED
[2024-06-22 12:19] VITALS: BP 192/84; TEMP 97.6
--- NOTE | 2024-06-22 12:35 | EKG ---
Test Date: 2024-06-21 Test Time: 11:52:39 [employer] Marketing Manager: JEANNE MEASUREMENT RESULTS: Intervals: Rate: 79 NC: 192 QRSD: 76 QT: 416 QTc: 477 Dixon: P: 23 NC: 192 QRS: 8 T: 88 INTERPRETIVE STATEMENTS: Normal sinus rhythm ST & T wave abnormality, consider lateral ischemia Prolonged QT Abnormal ECG Compared to ECG 12/09/2022 12:56:25 ST (T wave) deviation now present Possible ischemia now present Prolonged QT interval now present Myocardial infarct finding no longer present Electronically Signed On 06-22-24 12:32:48 CDT by William Walden
== END 2024-06-22 12:37 | disposition home or self-care (01) ==
LOC: ER 11:38 → ERHOLD 15:37 → 4TH 20:38
PROVIDERS: ADMIT Internal Medicine; ATTEND Internal Medicine
DX: R07.89 Other chest pain (principal); R00.2 Palpitations; E34.00 Carcinoid syndrome, unspecified; I10 Essential (primary) hypertension; I25.10 Atherosclerotic heart disease of native coronary artery without angina pectoris; R42 Dizziness and giddiness; N18.30 Chronic kidney disease, stage 3 unspecified; E87.6 Hypokalemia; D3A.8 Other benign neuroendocrine tumors; Z91.09 Other allergy status, other than to drugs and biological substances; Z95.5 Presence of coronary angioplasty implant and graft; Z79.82 Long term (current) use of aspirin
CPT/HCPCS: 96365; 96361; 93005; 93306; 85025 ×2; 81001; 80048 ×2; 36415; 83735 ×2; 84100; 85610; 80061; 80076; 84443; 83036; 84484 ×3; 84439; 83690; 83880; 71045; 96375; 96372; 99285; 96366; J1644 ×3; J3475; J7040; G0378 ×4